=== PATIENT | male | born 1950 | race Caucasian/White ===

== ENCOUNTER 2023-03-23 06:41 | Emergency (ER) | payer MEDICARE ==
--- OUTSIDE RECORDS SUMMARY | 2023-03-23 06:50 | XMS REPORT | Continuity of Care Document ---
:1950 Author Organization [facility] t Address [address] [place] [address] [place] [id number] Care Team Providers Name Role Phone CLARA MÁRQUEZ Primary Care Physician Unavailable Guy Marcial Attending Clinician Unavailable ABIGAIL DIAZ Attending Clinician Unavailable Abigail Diaz MD Attending Clinician PHILIP PATTEN Attending Clinician Unavailable Philip Patten MD Attending Clinician Nori Schneider Attending Clinician JAY OLIVIER Attending Clinician Unavailable Jay Shaw Attending Clinician Dave Attending Clinician Unavailable BAYRON LEE Attending Clinician Unavailable Carter Hunter Rahil Attending Clinician Unavailable RAYMON AVENDAÑO Attending Clinician Unavailable Raymon Avendaño MD Attending Clinician Guy Marcial Admitting Clinician Unavailable ABIGAIL DIAZ Admitting Clinician Unavailable PHILIP PATTEN Admitting Clinician Unavailable Dave Admitting Clinician Unavailable Carter Hunter Rahil Admitting Clinician Unavailable RAYMON AVENDAÑO Admitting Clinician Unavailable Raymon Avendaño MD Admitting Clinician Payers Payer Name Policy Type Policy Number Effective Date Expiration Date S katerin [facility] [id number] MEDICARE ADVANTAGE 00:00:00 PLAN [facility] [id number] 2021 (MEDICARE 00:00:00 REPLACEMENT HMO) [facility] [id number] [facility] [id number] 2019 00:00:00 Problems Condition Condition Condition Status Onset Resolution Last Treating Co mments Source Name Details Category Date Date Treatment Clinician Date Acute Acute Disease Active Univers cystitis cystitis 08-20 ity of without without 00:00: [place] hematuria hematuria 00 Medi rizwana Branch 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 episodes 08-19 ity of of of 00:00: [place] unresponsi unresponsi 00 Me dical veness veness 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 08 it y of traumatic traumatic 00:[place] brain brain 00 Medical injury injury Branch Carotid Carotid Disease Recurre Univer s stenosis, stenosis, nce 08-19 ity of asymptomat asymptomat 00:[place] ic, ic, 00 Medical bilateral bilateral Bran ch 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 00:00: [place] due to due to 00 Medical external external Branch causes, causes, without without status status epilepticu epilepticu s s Seizure Seizure Disease Active Univers 08-19 ity of 00:00: [place] 00 Medical Branch Allergies, Adverse Reactions, Alerts Allergy Allergy Status Severity Reaction(s) Onset Inactive Treating Comm ents Source Name Type Date Date Clinician PENICILL Allergy Active ENCCLR IN 08-31 14:12: 50 PENICILL Allergy Active ENCCLR IN 08-31 14:12: 50 MILK Allergy Active ENCCLR 08-31 14:12: 44 MILK Allergy Active ENCCLR 08-31 14:12: 44 Penicill DA Active [place] [facility] ins 11-22 [place] 00:00: Health 00 [address] [facility] [address] Penicill DA Active IA RASH-UNKNOWN HC A ins 11-22 [place] 00:00: Health 00 [address] [facility] [address] Penicill Propensi Active Rash 2018-08 Can take Univ ers in ty to 09-09 amoxicill ity of adverse 00:00: in [place] reaction 00 Medical s Branch PENICILL DRUG Active Rash 2018-08 Univers IN INGREDI 09-09 ity of 00:00: [place] 00 Medical Branch Social History Social Habit Start Date Stop Date Quantity Comments Source Gender identity Universit y [facility] of Social 2023-02-24 2023-02-24 Univers ity of function 00:00:00 00:00:00 [facility] Exposure to 2022-08-15 2022-08-25 Not sure [facility] SARS-CoV-2 (event) 00:00:00 14:17:00 [facility] Tobacco use and 2021-08-19 2021-08-19 Smokeless Universit y of exposure 00:00:00 00:00:00 tobacco non-user [facility] dical [place] Sex Ass[birth year] At [birth year] Universit y of 00:00:00 00:00:00 [facility] Smoking Status Start Date Stop Date Source Never smoked tobacco [facility] Medications Ordered Filled Start Stop Current Ordering Indication Dosage Frequency Signature Comments Components Source Medication Medication Date Date Medication? Clinician (SIG) Name Name magnesium 2022- No 1g 1 g, IV Univ ers sulfate in 02-24 Piggyback, it y of D5W 1 20:15: 20:08 ONCE, 1 [place] gram/100 mL 00 :00 dose, On [facility] RTU IV [place] Branch Piggyback 1 02/24/23 at g 1515, Administer over 60 Minutes, 100 mL fosphenytoi 2022- No 1500mg{ 1,500 mg Univers n (CEREBYX) 02-24 phenyto PE, IV it y of 1,500 mg PE 20:00: 21:00 [facility] [place] in NaCl 00 :00 valent} ONCE, 1 Medica l 0.9% (NS) dose, On Branch piggyback 02/24/23 at 1500, Administer over 30 Minutes, 100 mL phenytoin 2022- No 500mg 500 mg, IV Univers (DILANTIN) 01-26 Piggyback, it y of 500 mg in 20:45: 20:15 ONCE, 1 [place] NaCl 0.9% 00 :00 dose, On Medica l (NS) (5 Sat Branch mg/mL) 01/26/23 at piggyback 1545, 100 mL fosphenytoi 2022- No 10mg{ph 1,021 mg Univers n (CEREBYX) 08-25 enytoin PE (10 mg ity of 1,021 mg PE 21:30: 21:48 'equiva PE/kg [place] in NaCl 00 :00 lent}/k ?102.1 Medical 0.9% (NS) g kg), IV Branch piggyback Piggyback, ONCE, 1 dose, On 08/25/22 at 1530, Administer over 30 Minutes, 50 mL NaCl 0.9% 2022- No 500mL at 999 Univ ers (NS) bolus 08-25 mL/hr, 500 it y of infusion 21:15: 21:48 mL, IV [place] 500 mL 00 :00 Infusion, Medical ONCE, 1 Branch dose, On 08/25/22 at 1515, JESSI No known No No known Unive rs medications 08-25 medication it y of 14:21: s [place] 08 Medical Branch phenytoin Yes 100mg 100 mg, Univ ers (DILANTIN) 10 Oral, TID, ity of 100 mg/4 mL 14:00: First dose [place] oral 00 (after Medical suspension last Branch 100 mg modificati on) on 08/21/21 at 0800, Until Discontinu ed, Routine sulfamethox Yes 1{tbl} 1 tablet, Univers azole-trime 1-10 Oral, BID, it y of thoprim 02:00: First [place] (BACTRIM 00 on Pending Sale To [facility] DS) 800-160 08/20/21 at Bra nch mg per 1999, tablet 1 Until tablet Discontinu ed, JESSI
Re ason for Anti-Infec tive: Documented Infection< br>Documen temi Infection Site: Urine
D uration of Therapy: 7 days phenytoin 2021- No [id number] 300mg Take 1 Univers ER 300 mg 08-21 capsule by ity of ER capsule 00:00: 04:59 mouth [place] 00 :00 daily for Medical 90 days. Branch LORazepam 2021- No 1mg 1 mg, Univer s (ATIVAN) 08-20 Oral, ity of tablet 1 mg 17:15: 21:45 ONCE, 1 [place] 00 :[place] dose, On Medical [place] 08/20/21 Branch at 1115, Routine pantoprazol 2021-0 Yes 40mg 40 mg, Univ ers e 1-09 Oral, ity of (PROTONIX) 15:00: DAILY, [place] EC tablet 00 First dose Medi rizwana 40 mg on [place] Branch 08/20/21 at 0900, Until Discontinu ed, Routine primidone 2021-0 Yes 50mg 50 mg, Univer s (MYSOLINE) 1-09 Oral, QHS, ity of tablet 50 03:00: [place] dose [place] mg 00 on [facility] 08/19/21 at Branch 2100, Until Discontinu ed, Routine atorvastati 0 Yes 40mg 40 mg, Univ ers n (LIPITOR) - Oral, QHS, it y of tablet 40 03:00: First dose [place] mg 00 on [facility] 08/19/21 at Branch 2100, Until Discontinu ed, Routine venlafaxine 0 Yes 75mg 75 mg, Univ ers (EFFEXOR) 08-20 Oral, BID, ity of tablet 75 02:00: First dose [place] mg 00 on [facility] 08/19/21 at Branch 2000, Until Discontinu ed, Routine propranoloL 2021-0 Yes 10mg 10 mg, Univ ers (INDERAL) 08-20 Oral, BID, ity of tablet 10 02:00: First dose [place] mg 00 on [facility] 08/19/21 at Branch 2000, Until Discontinu ed, Routine heparin 2021-0 Yes 5000U 5,000 Univers (porcine) 08-20 Units, ity of injection 02:00: Subcutaneo [place] 5,000 Units 00 us, Q12H, Med ical First dose Branch on [facility] 08/19/21 at 2000, Until Discontinu ed, Routine phenytoin 2021-0 2021- No 100mg 100 mg, Uni vers (DILANTIN) 08-20 Oral, TID, it y of 100 mg/4 mL 02:00: 12:43 First dose [place] oral 00 :24 on [facility] suspension 08/19/21 at Bran ch 100 mg 2000, Until Discontinu ed, Routine atorvastati 2021-0 2023- No [id number] 40mg Take 1 Univers n 40 mg 08-20 tablet by ity of tablet 00:00: 05:59 mouth at [place] 00 :00 bedtime Medical for 360 Branch days. propranoloL 2022- No [id number] 10mg Take 1 Univers 10 mg 08-20 tablet by ity of tablet 00:00: 05:59 mouth 2 [place] 00 :00 (two) Medical times [place] daily for 360 days. venlafaxine 2022- No [id number] 75mg Take 1 Univers 75 mg 08-20 tablet by ity of tablet 00:00: 05:59 mouth 2 [place] 00 :00 (two) Medical times Branch daily for 360 days. pantoprazol 2022- No [id number] 40mg Take 1 Univers e 40 mg EC 08-20 tablet by ity of tablet 00:00: 05:59 mouth [place] 00 :00 daily for Medical 360 days. Branch sulfamethox 2021- No [id number] 1{tbl} Take 1 Univers azole-trime 08-20 tablet by it y of thoprim 00:00: 05:59 mouth 2 [place] 800-160 mg 00 :00 (two) Medical per tablet times [place] daily for 6 days. phenytoin 2021- No [id number] 100mg Take 4 mL Univers 100 mg/4 mL 08-20 by mouth 3 i ty of oral 00:00: 00:00 (three) [place] suspension 00 :00 times Medical daily for Branch 360 days. butalbital- Yes 1{tbl} 1 tablet, Univers acetaminoph 08-19 Oral, ity of en-caff 22:24: Q6HPRN, [place] (ESGIC) 34 Starting Medical 50-325-40 on Sat Branch mg tablet 1 08/19/21 at tablet 1624, Until Discontinu ed, Routine, Pain (scale 4-6), Pain (scale 7-10) fosphenytoi 2021- No 20mg{ph 2,042 mg Univers n (CEREBYX) 08-19 enytoin PE (20 mg ity of 2,042 mg PE 21:00: 21:05 'equiva PE/kg [place] in NaCl 00 :00 lent}/k ?102.1 Medical 0.9% (NS) g kg), IV Branch piggyback Piggyback, ONCE, 1 dose, On [facility] 08/19/21 at 1500, Administer over 30 Minutes, 100 mL ondansetron 0 Yes 4mg 4 mg, Slow Univers (ZOFRAN 08-19 IV Push, ity of (PF)) 20:30: Q6HPRN, [place] injection 4 38 Starting Medi rizwana mg on [facility] Branch 08/19/21 at 1430, Until Discontinu ed, JESSI, Nausea and Vomiting (N/V) LORazepam 0 Yes 2mg 2 mg, Slow Un emily (ATIVAN) 08 IV Push, ity of injection 2 20:06: Q5MIN PRN, [place] mg 39 Starting Medical on [facility] Branch 08/19/21 at 1406, Until Discontinu ed, Routine, Seizures NaCl 0.9% 2021-0 Yes 1000mL at 75 Unive rs (NS) IV 1-08 mL/hr, IV ity of infusion 20:00: Infusion, [place] 1,000 mL 00 CONTINUOUS Medic al , Starting Branch on 08/19/21 at 1400, Until Discontinu ed, Routine phenytoin 0 2021- No 100mg 100 mg, Uni vers (DILANTIN) 08-19 Oral, TID, it y of chewable 20:00: 21:20 First dose [place] tablet 100 00 :58 on [facility] Medical mg 08/19/21 at Branch 1400, Until Discontinu ed, Routine acetaminoph 2021-0 Yes 650mg 650 mg, Un emily en 08 Oral, ity of (TYLENOL) 19:48: Q6HPRN, [place] tablet 650 11 Starting Medic al mg on [facility] Branch 08/19/21 at 1348, Until Discontinu ed, Routine, Pain (scale 4-6) docusate 2021-0 Yes 100mg 100 mg, Unive rs (COLACE) 08 Oral, ity of capsule 100 19:48: QDAILYPRN, [place] mg 11 Starting Medical on [facility] Branch 08/19/21 at 1348, Until Discontinu ed, Routine, Constipati on iopamidol 2021-0 202- No [id number] 100mL 100 mL, Univers (ISOVUE 08-19 Intravenou ity o f 370-500 mL) 16:45: 15:25 s, ONCE, 1 [place] injection 00 :00 dose, On Medica l 100 mL 08/19/21 Branch at 1045, Routine ondansetron 2021- No 4mg 4 mg, Slow Univers (ZOFRAN 08-19 IV Push, ity of (PF)) 15:30: 14:21 ONCE, 1 [place] injection 4 00 :00 dose, On Medi rizwana mg 08/19/21 Branch at 0930, JESSI acetaminoph 2018-08- No [id number] 1{tbl} Take 1 Univers en-codeine 09-09 [id number] tablet by i ty of 300-30 mg 00:00: 00:00 mouth [place] tablet 00 :00 every 4 Medical (four) Branch hours as needed for Pain (scale 7-10). Vital Signs Vital Name Observation Time Observation Value Comments Source Systolic blood 2023-02-24 22:30:00 154 mm[Hg] Univer sity of [facility] Diastolic blood 2023-02-24 22:30:00 75 [facility]Hg[facility] 2023-02-24 22:30:00 59 /min [facility] Respiratory rate 2023-02-24 22:30:00 19 /min [facility] Oxygen saturation in 2023-02-24 22:30:00 94 /min [facility] Arterial blood by [place] Medi rizwana Pulse oximetry Branch Body temperature 2023-02-24 20:22:[address] [facility] Body height 2023-02-24 17:59:00 172.7 cm [facility] Body weight 2023-02-24 17:59:00 113.399 kg [facility] BMI 2023-02-24 17:59:00 38.01 kg/m2 [facility] Systolic blood 2023-01-26 20:00:00 166 mm[Hg] Univer sity [facility] Diastolic blood 2023-01-26 20:00:00 83 mm[Hg] Unive rsity [facility] Heart rate 2023-01-26 20:00:00 72 /min Universi ty [facility] [place] [facility] Respiratory rate 2023-01-26 20:00:00 20 /min Univ ersity [facility] [place] [facility] Oxygen saturation in 2023-01-26 20:00:00 94 /min University of Arterial blood by [place] [employer] rizwana Pulse oximetry Branch Body temperature 2023-01-26 17:13:00 36.17 Yazmin Univ ersity of [place] [facility] Body weight 2023-01-26 17:13:00 102.059 kg Universi ty [facility] [place] [facility] BMI 2023-01-26 17:13:00 37.44 kg/m2 Universi ty [facility] [place] [facility] Systolic blood 2022-08-25 21:00:00 130 mm[Hg] Univer sity of pressure [place] [facility] Diastolic blood 2022-08-25 21:00:00 91 mm[Hg] Unive rsity of pressure [place] [facility] Heart rate 2022-08-25 21:00:00 74 /min Universi ty [facility] [place] [facility] Respiratory rate 2022-08-25 21:00:00 18 /min Univ ersity of [place] [facility] Oxygen saturation in 2022-08-25 21:00:00 94 /min University of Arterial blood by [place] rizwana Pulse oximetry Branch Body temperature 2022-08-25 20:18:00 36.83 Yazmin Univ ersity of [place] [facility] Body weight 2022-08-25 20:18:00 102.059 kg Universi ty [facility] [place] [facility] BMI 2022-08-25 20:18:00 37.44 kg/m2 Universi ty [facility] [place] [facility] Systolic blood 2021-08-22 01:35:00 149 mm[Hg] Univer sity of pressure [place] [facility] Diastolic blood 2021-08-22 01:35:00 73 mm[Hg] Unive rsity of pressure [place] [facility] Heart rate 2021-08-22 01:35:00 62 /min Universi ty [facility] [place] [facility] Body temperature 2021-08-22 01:35:00 36.11 Yazmin Univ ersity [facility] [place] [facility] Respiratory rate 2021-08-22 01:35:00 16 /min Univ ersity [facility] [place] [facility] Oxygen saturation in 2021-08-22 01:35:00 96 /min University of Arterial blood by [place] rizwana Pulse oximetry Branch Body height 2021-08-19 19:12:00 165.1 cm [facility] Body weight 2021-08-19 19:12:00 102.059 kg [facility] BMI 2021-08-19 19:12:00 37.44 kg/m2 [facility] Procedures Procedure Date / Time Performing Source Performed Clinician POTASSIUM SERUM 2023-02-24 Joe Abigail [facility] xas 20:55:[address] [facility] CT HEAD WO CONTRAST 2023-02-24 Abigail Diaz [place] [facility] f [place] 20:07:[address] [facility] COMP. METABOLIC PANEL ([id number]) 2023-02-24 Abigail Diaz [facility] 19:51:[address] [facility] URINALYSIS 2023-02-24 Joe [facility] xas 19:46:[address] [facility] MAGNESIUM 2023-02-24 Joe [facility] xas 18:13:[address] [facility] PHENYTOIN 2023-02-24 Joe [facility] xas 18:13:[address] [facility] CBC WITH DIFF 2023-02-24 Joe [facility] xas 18:13:[address] [facility] CONSENT/REFUSAL FOR DIAGNOSIS 2023-02-24 Doctor Unassigned, [facility] AND TREATMENT 18:06:24 [place] [facility] EKG-12 LEAD 2023-01-26 Philip Patten [facility] xas 20:50:40 [facility] COMP. METABOLIC PANEL ([id number]) 2023-01-26 Philip Patten [facility] 17:10:00 [facility] PHENYTOIN 2023-01-26 Philip Patten [facility] xas 17:10:00 [facility] CBC WITH DIFF 2023-01-26 Philip Patten [facility] [place]as 17:10:00 [facility] COMP. METABOLIC PANEL ([id number]) 2022-08-25 [facility] 20:34[facility]00 [facility] PHENYTOIN 2022-08-[address] [facility] exas 20:34:[address] [facility] CBC WITH DIFF 2022-08-[address] [facility] exas 20:34:00 [facility] Branch CONSENT/REFUSAL FOR DIAGNOSIS 2022-08-25 Doctor Unassigned, [facility] AND TREATMENT 20:14:00 [place] [facility] PHENYTOIN FREE 2021-08-21 [facility] 09:57[facility]00 [facility] CBC WITH DIFF 2021-08-21 Paula [facility] 09:57:[address] [facility] MAGNESIUM 2021-08-21 Paula [facility] 09:57:[address] [facility] BASIC METABOLIC PANEL (NA, K, 2021-08-21 Anamaria Mitchell [facility] CL, CO2, GLUCOSE, BUN, 09:57:00 [facility] ran CREATININE, CA) ELECTROENCEPHALOGRAM 2021-08-21 [facility] URINE CULTURE 2021-08-20 Paula [facility] 16:56:[address] [facility] PHENYTOIN FREE 2021-08-20 Terri [facility] 00:07:[address] [facility] GLYCOSYLATED HEMOGLOBIN (A1C) 2021-08-20 Terri [facility] 00:07:[address] [facility] XR CHEST 1 VW 2021-08-19 Terri [facility] 20:11:[address] [facility] CT ANGIOGRAM HEAD 2021-08-19 Joe [facility] 15:34:[address] [facility] CT ANGIOGRAM NECK 2021-08-19 Joe [facility] 15:34:[address] [facility] CT HEAD WO CONTRAST 2021-08-19 Joe [facility] [place] 15:34:[address] [facility] URINALYSIS 2021-08-19 Joe [facility] 14:59:[address] [facility] URINE DRUG (IMMUNOASSAY) - 2021-08-19 Joe Abigail [facility] COMPREHENSIVE DRUG SCREEN W/O 14:59:00 Nv dical Branch REFLEX COVID-19 (ID NOW RAPID 2021-08-19 [facility] TESTING) 14:23:00 [facility] Branch CBC WITH DIFF 2021-08-19 Joe [facility] 14:10:[address] [facility] PROTHROMBIN TIME / INR 2021-08-19 [facility] 14:10:[address] [facility] ACTIVATED PARTIAL THRMPLAS 2021-08-19 Abigail Diaz [facility] JUDIT 14:10:[address] [facility] N-TERMINAL PRO-BNP 2021-08-19 Joe [facility] 14:10:[address] [facility] PHOSPHORUS 2021-08-19 Amrceasar [facility] xas 14:10:[address] [facility]NESIUM 2021[facility]08-19 [facility] 14:10[facility] [facility] TROPONIN I 2021-08-19 Joe [facility] 14:10:[address] [facility] FREE T4 2021-08-19 Joe [facility] [place] 14:10:[address] [facility] THYROID STIMULATING HORMONE 2021-08-19 Joe [facility] 14:10:[address] [facility] COMP. METABOLIC PANEL ([id number]) 2021-08-19 Abigail Diaz [facility] 14:10:[address] [facility] PHENYTOIN 2021-08-19 Joe [facility] xas 14:10:[address] [facility] ETHANOL 2021-08-19 Joe [facility]as 14:10:[address] [facility] LACTIC ACID WHOLE BLOOD 2021-08-19 Abigail Diaz [facility] 14:09:[address] [facility] HB ECG ROUTINE & RHYTHM STRIP 2021-08-19 Abigail Diaz [facility] 14:01:[address] [facility] Encounters Start End Encounter Admission Attending Care Care Encounter Source Date/Time Date/Time Type Type Clinicians Facility Department ID 2020-11-22 Inpatient EL Aggie, [facility] [id number] [place] 20:34:55 Guy 05 tone Special ty [facility] 2023-02-24 2023-02-24 [facility] [id number] Univers 13:01:00 18:40:00 ABIGAIL saavedra [facility] 2023-02-24 2023-02-24 [facility] [id number] Univers 13:01:00 18:40:00 Abigail HERMAN [id number] i ty [facility] [id number] [facility] [id number] [facility] 084 Branch 2023-01-26 2023-01-26 Emergency X JOSE [facility] ERT [id number] Univers 12:09:00 16:04:00 PHILIP [facility] 2023-01-26 2023-01-26 Emergency [facility] [id number] Univers 12:09:00 16:04:00 Philip HERMAN [id number] i ty of [place] [id number] [facility] [id number] [address] 2022-11-30 2022-11-30 CAV Nori [id number]. JO-ANN XKKYKZ [facility] 20:00:00 21:00:00 Wyatt [id number] [facility] [id number] 2022-08-25 2022-08-25 Emergency [facility] [id number] Univers 14:16:00 17:49:00 JAY [facility] 2022-08-25 2022-08-25 Emergency [facility] [id number] Univers 14:16:00 17:49:00 Jay Sanchez VIRGIL [id number] i ty of [place] [id number] [facility] [id number] [address] 2022-04-13 2022-04-13 [facility] [id number] [facility] 00:00:00 00:00:00 [id number] Medica l Group 2022-04-13 2022-04-13 [facility] 1109 [facility] 00:00:00 00:00:00 [id number] Medica l Group 2022-02-23 2022-02-23 Outpatient JATIN JATIN [id number] [facility] 03:28:00 03:28:00 [id number] Medica l Group 2021-11-02 2021-11-02 Outpatient [facility] [id number] [facility] 09:00:00 09:00:00 [id number] Medica l Group 2021-08-31 2021-08-31 Outpatient RADHA PERSON [id number] [facility] 00:00:00 00:00:00 ADMISSION BAYRON 2021-08-21 2021-08-30 Inpatient 3 ALEKSANDAR Hunter BIN [id number] [facility] 21:15:00 11:00:00 Carter [facility] 2021-08-19 2021-08-21 Outpatient X JAROCHO, [facility] MIMI [id number] Univers 08:00:00 22:01:00 RAYMON saavedra o f [facility] 2021-08-19 2021-08-21 Emergency Abigail Daiz [id number] Univers 08:00:00 22:01:00 Raymon Avendaño 350.1.13.1 0 ity [facility] [id number] Matthew as [id number] [address] 2020-11-23 2020-11-23 Outpatient INOCENCIO Marcial REF [id number] [facility] 08:52:00 08:52:00 Guy 62 [facility] are [facility] 2020-11-22 2020-11-22 Outpatient [facility] [id number] [facility] 20:34:49 20:34:49 [facility] 41 [facility] are Medical Center Results Test Description Test Time Test Comments Results Result Comments Source POTASSIUM SERUM 2023-02-24 21:39:42 Test Item Value Reference Range Interpretation Comme nts K (test code = [id number]) 4.6 mmol/L 3.5-5.0 Lab Interpretation (test code = 37441-0) [facility] ([id number][facility]2023-02-24 20:40:28 Test Item Value Reference Range Interpretation Comments NA (test code = 137 mmol/L 135-145 [id number]) K (test code = 6.3 mmol/L 3.5-5.0 5067175417) CL (test code = 103 mmol/L 98-108 2007643015) CO2 TOTAL (test code = 26 mmol/L 23-31 5826668829) AGAP (test code = 8 2-16 8336506090) BUN (test code = 17 mg/dL 7-23 8671730346) GLUCOSE (test code = 114 mg/dL 70-110 H 4651903282) CREATININE (test code = 0.97 mg/dL 0.60-1.25 3014185859) TOTAL BILI (test code = 0.7 mg/dL 0.1-1.2 4555007982) CALCIUM (test code = 8.6 mg/dL 8.6-10.6 2926816372) T PROTEIN (test code = 7.5 g/dL 6.3-8.2 5159977121) ALBUMIN (test code = 4.1 g/dL 3.5-5.0 4295586367) ALK PHOS (test code = 153 U/L 34-122 H 2510122681) ALTv (test code = 36 U/L 5-50 1742-6) AST(SGOT) (test code = 43 U/L 13-40 H 5934121358) eGFR (test code = 75.9 mL/min/1.73m2 3934112817) DARIN (test code = DARIN) Association of Glomerular Filtration Rate (GFR) and Staging of Kidney Disease* + --+ --+ ------+| GFR (mL/min/1.73 m2) ?| With Kidney Damage ?| ?Without Kidney Damage+ --------+ --------+ +| ?>90 ?| ?Stage one ?| ? Normal ?+ ---+ ---+ -------+| ?60-89 ?| ?Stage two ?| ? Decreased GFR ? + --+ --+ ------+| ?30-59 ?| ?Stage three ?| ? Stage three ? + --+ --+ ------+| ?15-29 ?| ?Stage four ? | ? Stage four ?+ ---+ ---+ -------+| ?<15 (or dialysis) ? ?| ?Stage five ? | ? Stage five ?+ ---+ ---+ -------+ *Each stage assumes the associated GFR level has been in effect for at least three months. ?Stages 1 to 5, with or without kidney disease, indicate chronic kidney disease. Notes: Determination of stages one and two (with eGFR >59mL/min/1.73 m2) requires estimation of kidney damage for at least three months as defined by structural or functional abnormalities of the kidney, manifested by either:Pathological abnormalities or Markers of kidney damage (including abnormalities in the composition of the blood or urine or abnormalities in imaging tests). Lab Interpretation Abnormal (test code = 57765-8) [facility]58:02 Test Item Value Reference Range Interpretation Comments MAGNESIUM (test code = 5412545028) 1.1 mg/dL 1.7-2.4 L Lab Interpretation (test code = Abnormal 67754-0) [facility] 18:47:54 Test Item Value Reference Range Interpretation Comments PHENYTOIN (test code = 4.0 ug/mL 10.0-20.0 L 9514095813) DARIN (test code = DARIN) Toxic Range: ? 0-3 Months ? Greater than 14 ug/mL ? ? 3 Months - 150 Years ? ? Greater than 20 ug/mL Lab Interpretation (test Abnormal code = 37518-4) [facility] [id number] 18:31:30 Test Item Value Reference Range Interpretation Comments WBC (test code = 9.00 See_Comment [Automated 6990-2) message] The sy stem which generated this result transmitted reference range : 4.20 - 10.70 10*3/?L. The reference range was not used to interpret this result as normal/abnormal . RBC (test code = 3.97 See_Comment L [Automated 856-8) message] The sy stem which generated this result transmitted reference range : 4.26 - 5.52 10*6/?L. The reference range was not used to interpret this result as normal/abnormal . HGB (test code = 12.9 g/dL 12.2-16.4 718-7) HCT (test code = 37.4 % 38.4-49.3 L 4544-3) MCV (test code = 94.2 fL 81.7-95.6 787-2) MCH (test code = 32.5 pg 26.1-32.7 785-6) MCHC (test code = 34.5 g/dL 31.2-35.0 786-4) RDW-SD (test code = 47.8 fL 38.5-51.6 06666-6) RDW-CV (test code = 13.8 % 12.1-15.4 788-0) PLT (test code = 327 See_Comment [Automated 777-3) message] The sy stem which generated this result transmitted reference range : 150 - 328 10*3/ ?L. The reference r esdras was not used to interpret this result as normal/abnormal . MPV (test code = 8.5 fL 9.8-13.0 L 68236-3) NRBC/100 WBC (test 0.0 See_Comment [Automat ed code = 1533081515) message] The system which generated this result transmitted reference range : 0.0 - 10.0 /100 WBCs. The refer ence range was not u sed to interpret th is result as normal/abnormal . NRBC x10^3 (test code See_Comment [Auto mated = 4626223806) message] The s ystem which generated this result transmitted reference range : 10*3/?L. The reference range was not used to interpret this result as normal/abnormal . GRAN MAT (NEUT) % 49.5 % (test code = 770-8) IMM GRAN % (test code 0.30 % = 7315477592) LYMPH % (test code = 39.7 % 736-9) MONO % (test code = 7.0 % 5905-5) EOS % (test code = 2.9 % 713-8) BASO % (test code = 0.6 % 706-2) GRAN MAT x10^3(ANC) 4.46 10*3/uL 1.99-6.95 (test code = 6280570058) IMM GRAN x10^3 (test 0.03 10*3/uL 0.00-0.06 code = 7131548059) LYMPH x10^3 (test code 3.57 10*3/uL 1.09-3.23 H = 731-0) MONO x10^3 (test code 0.63 10*3/uL 0.36-1.02 = 742-7) EOS x10^3 (test code = 0.26 10*3/uL 0.06-0.53 711-2) BASO x10^3 (test code 0.05 10*3/uL 0.01-0.09 = 704-7) Lab Interpretation Abnormal (test code = 63403-4) [facility] 18:43:34 Test Item Value Reference Range Interpretation Comments PHENYTOIN (test code = 9.1 ug/mL 10.0-20.0 L 4670593739) DARIN (test code = DARIN) Toxic Range: ? 0-3 Months ? Greater than 14 ug/mL ? ? 3 Months - 150 Years ? ? Greater than 20 ug/mL Lab Interpretation (test Abnormal code = 89335-7) [facility] MET[facility]OLIC PANEL ([id number])2023-01-26 17:42:34 Test Item Value Reference Range Interpretation Comments NA (test code = 141 mmol/L 135-145 9566658840) K (test code = 4.7 mmol/L 3.5-5.0 5630081106) CL (test code = 108 mmol/L 98-108 5549212489) CO2 TOTAL (test code = 23 mmol/L 23-31 1387633724) AGAP (test code = 10 2-16 1702542260) BUN (test code = 25 mg/dL 7-23 H 3474097086) GLUCOSE (test code = 170 mg/dL 70-110 H 8277494360) CREATININE (test code = 1.16 mg/dL 0.60-1.25 6423255142) TOTAL BILI (test code = 0.4 mg/dL 0.1-1.3 2486915162) CALCIUM (test code = 8.7 mg/dL 8.6-10.6 7481054133) T PROTEIN (test code = 7.2 g/dL 6.3-8.2 4507284897) ALBUMIN (test code = 4.0 g/dL 3.5-5.0 9669000456) ALK PHOS (test code = 146 U/L 34-122 H 9622106119) ALTv (test code = 32 U/L 5-50 1742-6) AST(SGOT) (test code = 31 U/L 13-40 8898927197) eGFR (test code = 61.7 mL/min/1.73m2 9828297799) DARIN (test code = DARIN) Association of Glomerular Filtration Rate (GFR) and Staging of Kidney Disease* + --+ --+ ------+| GFR (mL/min/1.73 m2) ?| With Kidney Damage ?| ?Without Kidney Damage+ --------+ --------+ +| ?>90 ?| ?Stage one ?| ? Normal ?+ ---+ ---+ -------+| ?60-89 ?| ?Stage two ?| ? Decreased GFR ? + --+ --+ ------+| ?30-59 ?| ?Stage three ?| ? Stage three ? + --+ --+ ------+| ?15-29 ?| ?Stage four ? | ? Stage four ?+ ---+ ---+ -------+| ?<15 (or dialysis) ? ?| ?Stage five ? | ? Stage five ?+ ---+ ---+ -------+ *Each stage assumes the associated GFR level has been in effect for at least three months. ?Stages 1 to 5, with or without kidney disease, indicate chronic kidney disease. Notes: Determination of stages one and two (with eGFR >59mL/min/1.73 m2) requires estimation of kidney damage for at least three months as defined by structural or functional abnormalities of the kidney, manifested by either:Pathological abnormalities or Markers of kidney damage (including abnormalities in the composition of the blood or urine or abnormalities in imaging tests). Lab Interpretation Abnormal (test code = 64073-9) [facility] WITH [id number] 17:30:16 Test Item Value Reference Range Interpretation Comments WBC (test code = 8.30 See_Comment [Automated 9609-2) message] The sy stem which generated this result transmitted reference range : 4.20 - 10.70 10*3/?L. The reference range was not used to interpret this result as normal/abnormal . RBC (test code = 3.83 See_Comment L [Automated 020-5) message] The sy stem which generated this result transmitted reference range : 4.26 - 5.52 10*6/?L. The reference range was not used to interpret this result as normal/abnormal . HGB (test code = 12.4 g/dL 12.2-16.4 718-7) HCT (test code = 36.4 % 38.4-49.3 L 4544-3) MCV (test code = 95.0 fL 81.7-95.6 787-2) MCH (test code = 32.4 pg 26.1-32.7 785-6) MCHC (test code = 34.1 g/dL 31.2-35.0 786-4) RDW-SD (test code = 47.8 fL 38.5-51.6 97025-4) RDW-CV (test code = 13.9 % 12.1-15.4 788-0) PLT (test code = 300 See_Comment [Automated 777-3) message] The sy stem which generated this result transmitted reference range : 150 - 328 10*3/ ?L. The reference r esdras was not used to interpret this result as normal/abnormal . MPV (test code = 8.5 fL 9.8-13.0 L 39909-0) NRBC/100 WBC (test 0.0 See_Comment [Automat ed code = 3583606452) message] The system which generated this result transmitted reference range : 0.0 - 10.0 /100 WBCs. The refer ence range was not u sed to interpret th is result as normal/abnormal . NRBC x10^3 (test code See_Comment [Auto mated = 0801765764) message] The s ystem which generated this result transmitted reference range : 10*3/?L. The reference range was not used to interpret this result as normal/abnormal . GRAN MAT (NEUT) % 50.9 % (test code = 770-8) IMM GRAN % (test code 0.60 % = 9535398000) LYMPH % (test code = 35.9 % 736-9) MONO % (test code = 8.6 % 5905-5) EOS % (test code = 3.5 % 713-8) BASO % (test code = 0.5 % 706-2) GRAN MAT x10^3(ANC) 4.23 10*3/uL 1.99-6.95 (test code = 4504636529) IMM GRAN x10^3 (test 0.05 10*3/uL 0.00-0.06 code = 2352541583) LYMPH x10^3 (test code 2.98 10*3/uL 1.09-3.23 = 731-0) MONO x10^3 (test code 0.71 10*3/uL 0.36-1.02 = 742-7) EOS x10^3 (test code = 0.29 10*3/uL 0.06-0.53 711-2) BASO x10^3 (test code 0.04 10*3/uL 0.01-0.09 = 704-7) Lab Interpretation Abnormal (test code = 37902-6) [facility] 22:37:17 Test Item Value Reference Range Interpretation Comments PHENYTOIN (test code = 10.5 ug/mL 10.0-20.0 5172298125) DARIN (test code = DARIN) Toxic Range: ? 0-3 Months ? Greater than 14 ug/mL ? ? 3 Months - 150 Years ? ? Greater than 20 ug/mL Lab Interpretation (test Normal code = 81013-1) [facility] WITH [id number] 21:31:57 Test Item Value Reference Range Interpretation Comments WBC (test code = See_Comment [Automated 9663-2) message] The sy stem which generated this result transmitted reference range : 4.20 - 10.70 10*3/?L. The reference range was not used to interpret this result as normal/abnormal . RBC (test code = See_Comment L [Automated 719-8) message] The sy stem which generated this result transmitted reference range : 4.26 - 5.52 10*6/?L. The reference range was not used to interpret this result as normal/abnormal . HGB (test code = 12.6 g/dL 12.2-16.4 718-7) HCT (test code = 37.4 % 38.4-49.3 L 4544-3) MCV (test code = 93.5 fL 81.7-95.6 787-2) MCH (test code = 31.5 pg 26.1-32.7 785-6) MCHC (test code = 33.7 g/dL 31.2-35.0 786-4) RDW-SD (test code = 45.7 fL 38.5-51.6 82930-2) RDW-CV (test code = 13.4 % 12.1-15.4 788-0) PLT (test code = See_Comment [Automated 777-3) message] The sy stem which generated this result transmitted reference range : 150 - 328 10*3/ ?L. The reference r esdras was not used to interpret this result as normal/abnormal . MPV (test code = 8.8 fL 9.8-13.0 L 41617-9) NRBC/100 WBC (test See_Comment [Automat ed code = 9803737341) message] The system which generated this result transmitted reference range : 0.0 - 10.0 /100 WBCs. The refer ence range was not u sed to interpret th is result as normal/abnormal . NRBC x10^3 (test code See_Comment [Auto mated = 0545121777) message] The s ystem which generated this result transmitted reference range : 10*3/?L. The reference range was not used to interpret this result as normal/abnormal . GRAN MAT (NEUT) % 43.3 % (test code = 770-8) IMM GRAN % (test code 0.40 % = 2084585521) LYMPH % (test code = 45.5 % 736-9) MONO % (test code = 7.9 % 5905-5) EOS % (test code = 2.3 % 713-8) BASO % (test code = 0.6 % 706-2) GRAN MAT x10^3(ANC) 4.48 10*3/uL 1.99-6.95 (test code = 3405317209) IMM GRAN x10^3 (test 0.04 10*3/uL 0.00-0.06 code = 3161633685) LYMPH x10^3 (test code 4.71 10*3/uL 1.09-3.23 H = 731-0) MONO x10^3 (test code 0.82 10*3/uL 0.36-1.02 = 742-7) EOS x10^3 (test code = 0.24 10*3/uL 0.06-0.53 711-2) BASO x10^3 (test code 0.06 10*3/uL 0.01-0.09 = 704-7) Lab Interpretation Abnormal (test code = 54078-8) [facility]. METABOLIC PANEL ([id number])2022-08-25 21:09:32 Test Item Value Reference Range Interpretation Comments NA (test code = 137 mmol/L 135-145 8554404572) K (test code = 5.2 mmol/L 3.5-5.0 H 9162722151) CL (test code = 106 mmol/L 98-108 4599014466) CO2 TOTAL (test code = 23 mmol/L 23-31 5889070609) AGAP (test code = 2-16 5194077428) BUN (test code = 22 mg/dL 7-23 6626697874) GLUCOSE (test code = 99 mg/dL 70-110 2220274186) CREATININE (test code = 1.06 mg/dL 0.60-1.25 3586759327) TOTAL BILI (test code = 0.5 mg/dL 0.1-1.2 7712816387) CALCIUM (test code = 8.2 mg/dL 8.6-10.6 L 7103756246) T PROTEIN (test code = 7.4 g/dL 6.3-8.2 0536221432) ALBUMIN (test code = 4.1 g/dL 3.5-5.0 3866262946) ALK PHOS (test code = 158 U/L 34-122 H 4230820931) ALTv (test code = 36 U/L 5-50 1742-6) AST(SGOT) (test code = 37 U/L 13-40 2266151034) eGFR (test code = mL/min/1.73m2 0917100415) DARIN (test code = DARIN) Association of Glomerular Filtration Rate (GFR) and Staging of Kidney Disease* + --+ --+ ------+| GFR (mL/min/1.73 m2) ?| With Kidney Damage ?| ?Without Kidney Damage+ --------+ --------+ +| ?>90 ?| ?Stage one ?| ? Normal ?+ ---+ ---+ -------+| ?60-89 ?| ?Stage two ?| ? Decreased GFR ? + --+ --+ ------+| ?30-59 ?| ?Stage three ?| ? Stage three ? + --+ --+ ------+| ?15-29 ?| ?Stage four ? | ? Stage four ?+ ---+ ---+ -------+| ?<15 (or dialysis) ? ?| ?Stage five ? | ? Stage five ?+ ---+ ---+ -------+ *Each stage assumes the associated GFR level has been in effect for at least three months. ?Stages 1 to 5, with or without kidney disease, indicate chronic kidney disease. Notes: Determination of stages one and two (with eGFR >59mL/min/1.73 m2) requires estimation of kidney damage for at least three months as defined by structural or functional abnormalities of the kidney, manifested by either:Pathological abnormalities or Markers of kidney damage (including abnormalities in the composition of the blood or urine or abnormalities in imaging tests). Lab Interpretation Abnormal (test code = 64941-0) [facility] [id number] 12:40:14 Test Item Value Reference Range Interpretation Comments PHENY FREE (test code 2.1 ug/mL 1.0-2.0 H = 0051815828) DARIN (test code = DARIN) Toxic Range: ? Greater than 2.5 ug/mL Test developed and characteristics determined by [facility] Laboratory Services. Lab Interpretation Abnormal (test code = 95541-4) [facility] (NA, K, CL, CO2, GLUCOSE, BUN, CREATININE, CA)2021-08-21 11:15:55 Test Item Value Reference Range Interpretation Comments NA (test code = 138 mmol/L 135-145 5578467593) K (test code = 4.9 mmol/L 3.5-5.0 8860893742) CL (test code = 105 mmol/L 98-108 2038012536) CO2 TOTAL (test code = 27 mmol/L 23-31 2332953235) AGAP (test code = 2-16 8788269804) BUN (test code = 18 mg/dL 7-23 8831170355) GLUCOSE (test code = 93 mg/dL 70-110 8879895609) CREATININE (test code = 1.04 mg/dL 0.60-1.25 2440720477) CALCIUM (test code = 8.5 mg/dL 8.6-10.6 L 8134737521) eGFR (test code = mL/min/1.73m2 2675334829) DARIN (test code = DARIN) Association of Glomerular Filtration Rate (GFR) and Staging of Kidney Disease* + --+ --+ ------+| GFR (mL/min/1.73 m2) ?| With Kidney Damage ?| ?Without Kidney Damage+ --------+ --------+ +| ?>90 ?| ?Stage one ?| ? Normal ?+ ---+ ---+ -------+| ?60-89 ?| ?Stage two ?| ? Decreased GFR ? + --+ --+ ------+| ?30-59 ?| ?Stage three ?| ? Stage three ? + --+ --+ ------+| ?15-29 ?| ?Stage four ? | ? Stage four ?+ ---+ ---+ -------+| ?<15 (or dialysis) ? ?| ?Stage five ? | ? Stage five ?+ ---+ ---+ -------+ *Each stage assumes the associated GFR level has been in effect for at least three months. ?Stages 1 to 5, with or without kidney disease, indicate chronic kidney disease. Notes: Determination of stages one and two (with eGFR >59mL/min/1.73 m2) requires estimation of kidney damage for at least three months as defined by structural or functional abnormalities of the kidney, manifested by either:Pathological abnormalities or Markers of kidney damage (including abnormalities in the composition of the blood or urine or abnormalities in imaging tests). Lab Interpretation Abnormal (test code = 23837-5) [facility] 11:15:55 Test Item Value Reference Range Interpretation Comments MAGNESIUM (test code = 3476958689) 2.2 mg/dL 1.7-2.4 Lab Interpretation (test code = Normal 74904-6) [facility] WITH [id number] 10:45:32 Test Item Value Reference Range Interpretation Comments WBC (test code = See_Comment [Automated 6390-2) message] The sy stem which generated this result transmitted reference range : 4.20 - 10.70 10*3/?L. The reference range was not used to interpret this result as normal/abnormal . RBC (test code = See_Comment L [Automated 029-8) message] The sy stem which generated this result transmitted reference range : 4.26 - 5.52 10*6/?L. The reference range was not used to interpret this result as normal/abnormal . HGB (test code = 12.7 g/dL 12.2-16.4 718-7) HCT (test code = 37.3 % 38.4-49.3 L 4544-3) MCV (test code = 91.2 fL 81.7-95.6 787-2) MCH (test code = 31.1 pg 26.1-32.7 785-6) MCHC (test code = 34.0 g/dL 31.2-35.0 786-4) RDW-SD (test code = 44.0 fL 38.5-51.6 29742-2) RDW-CV (test code = 13.2 % 12.1-15.4 788-0) PLT (test code = See_Comment [Automated 777-3) message] The sy stem which generated this result transmitted reference range : 150 - 328 10*3/ ?L. The reference r esdras was not used to interpret this result as normal/abnormal . MPV (test code = 8.6 fL 9.8-13.0 L 20569-0) NRBC/100 WBC (test See_Comment [Automat ed code = 4619726294) message] The system which generated this result transmitted reference range : 0.0 - 10.0 /100 WBCs. The refer ence range was not u sed to interpret th is result as normal/abnormal . NRBC x10^3 (test code <0.01 See_Comment [Auto mated = 8125093490) message] The s ystem which generated this result transmitted reference range : 10*3/?L. The reference range was not used to interpret this result as normal/abnormal . GRAN MAT (NEUT) % 38.4 % (test code = 770-8) IMM GRAN % (test code 0.20 % = 0122076565) LYMPH % (test code = 51.1 % 736-9) MONO % (test code = 7.5 % 5905-5) EOS % (test code = 2.4 % 713-8) BASO % (test code = 0.4 % 706-2) GRAN MAT x10^3(ANC) 3.56 10*3/uL 1.99-6.95 (test code = 7724008289) IMM GRAN x10^3 (test <0.03 0.00-0.06 code = 3806864472) LYMPH x10^3 (test code 4.74 10*3/uL 1.09-3.23 H = 731-0) MONO x10^3 (test code 0.70 10*3/uL 0.36-1.02 = 742-7) EOS x10^3 (test code = 0.22 10*3/uL 0.06-0.53 711-2) BASO x10^3 (test code 0.04 10*3/uL 0.01-0.09 = 704-7) REACT LYMPHS (test Rare code = 7517715532) GIANT PLATELETS (test Present See_Comment A [Auto mated code = 5908-9) message] The system which generated this result transmitted reference range : (none). The reference range was not used to interpret this result as normal/abnormal . Lab Interpretation Abnormal (test code = 56868-2) [facility] [id number] 03:34:42 Test Item Value Reference Range Interpretation Comments PHENY FREE (test code 2.5 ug/mL 1.0-2.0 H = 6438273657) DARIN (test code = DARIN) Toxic Range: ? Greater than 2.5 ug/mL Test developed and characteristics determined by [facility] Laboratory Services. Lab Interpretation Abnormal (test code = 95772-3) [facility]GLYCOSYLATED HEMOGLOBIN (A1C)2021-08-20 00:41:54 Test Item Value Reference Range Interpretation Comments HGB A1C (test code = 5.8 % 4.0-5.7 H 4548-4) DARIN (test code = DARIN) Reference RangesNormal: <5.7%Prediabetes: 5.7 - 6.4%Diabetes: > 6.5% Lab Interpretation (test Abnormal code = 31093-8) [facility]Magnesium [id number] 20:40:07 Test Item Value Reference Range Interpretation Comments MAGNESIUM (test code = 3667732943) 2.2 mg/dL 1.7-2.4 Lab Interpretation (test code = Normal 56233-7) [facility]Phosphorus [id number] 20:40:06 Test Item Value Reference Range Interpretation Comments PHOSPHORUS (test code = 1298114032) 3.0 mg/dL 2.5-5.0 Lab Interpretation (test code = Normal 55914-0) [facility]2022-[facility]-08 18:18:13 Test Item Value Reference Range Interpretation Comments PHENYTOIN (test code = 3.5 ug/mL 10.0-20.0 L 9147818368) DARIN (test code = DARIN) Toxic Range: ? 0-3 Months ? Greater than 14 ug/mL ? ? 3 Months - 150 Years ? ? Greater than 20 ug/mL Lab Interpretation (test Abnormal code = 54753-0) [facility] WITH [id number] 15:36:41 Test Item Value Reference Range Interpretation Comments WBC (test code = See_Comment H [Automated 2217-2) message] The sy stem which generated this result transmitted reference range : 4.20 - 10.70 10*3/?L. The reference range was not used to interpret this result as normal/abnormal . RBC (test code = See_Comment L [Automated 269-8) message] The sy stem which generated this result transmitted reference range : 4.26 - 5.52 10*6/?L. The reference range was not used to interpret this result as normal/abnormal . HGB (test code = 12.3 g/dL 12.2-16.4 718-7) HCT (test code = 36.7 % 38.4-49.3 L 4544-3) MCV (test code = 92.0 fL 81.7-95.6 787-2) MCH (test code = 30.8 pg 26.1-32.7 785-6) MCHC (test code = 33.5 g/dL 31.2-35.0 786-4) RDW-SD (test code = 43.9 fL 38.5-51.6 16256-1) RDW-CV (test code = 13.0 % 12.1-15.4 788-0) PLT (test code = See_Comment H [Automated 777-3) message] The sy stem which generated this result transmitted reference range : 150 - 328 10*3/ ?L. The reference r esdras was not used to interpret this result as normal/abnormal . MPV (test code = 8.8 fL 9.8-13.0 L 31563-6) NRBC/100 WBC (test See_Comment [Automat ed code = 3734578590) message] The system which generated this result transmitted reference range : 0.0 - 10.0 /100 WBCs. The refer ence range was not u sed to interpret th is result as normal/abnormal . NRBC x10^3 (test code <0.01 See_Comment [Auto mated = 9860497605) message] The s ystem which generated this result transmitted reference range : 10*3/?L. The reference range was not used to interpret this result as normal/abnormal . GRAN MAT (NEUT) % 50.8 % (test code = 770-8) IMM GRAN % (test code 0.50 % = 9109846830) LYMPH % (test code = 38.9 % 736-9) MONO % (test code = 7.3 % 5905-5) EOS % (test code = 2.2 % 713-8) BASO % (test code = 0.3 % 706-2) GRAN MAT x10^3(ANC) 5.92 10*3/uL 1.99-6.95 (test code = 7719696710) IMM GRAN x10^3 (test 0.06 10*3/uL 0.00-0.06 code = 9577013080) LYMPH x10^3 (test code 4.53 10*3/uL 1.09-3.23 H = 731-0) MONO x10^3 (test code 0.85 10*3/uL 0.36-1.02 = 742-7) EOS x10^3 (test code = 0.26 10*3/uL 0.06-0.53 711-2) BASO x10^3 (test code 0.04 10*3/uL 0.01-0.09 = 704-7) Lab Interpretation Abnormal (test code = 35957-2) [facility] [id number] 15:29:39 Test Item Value Reference Range Interpretation Comments TSH (test code = See_Comment H [Automated message] 7739466136) The system [employer] generated this result transmitted ref erence range: 0.45 - 4 .70 mIU/L. The refe rence range was not u sed to interpret this result as normal/abnor mal. Lab Interpretation (test Abnormal code = 33113-5) [facility] [id number] 15:16:18 Test Item Value Reference Range Interpretation Comments FREE T4 (test code = See_Comment L [Autom ated message] [id number]) The system [employer] generated this result transmitted ref erence range: 0.78 - 2 .20 ng/dL:. The ref erence range was not u sed to interpret this result as normal/abnor mal. Lab Interpretation (test Abnormal code = 19179-3) [facility] [id number] 15:11:17 Test Item Value Reference Interpretation Comments Range TROPONIN I (test 0.011 ng/mL See_Comment [Automated code = [id number]) message] The system which generated this result transmitted reference range : <=0.034. The reference range was not used to interpret this result as normal/abnormal . DARIN (test code = Reference (Normal) DARIN) Range (defined by the 99th percentile reference limit): <= 0.034 ng/mL Note: Cardiac troponin begins to rise 3-4 hours after the onset of ischemia. Repeat in 4-6 hours if the sample was drawn within 3-4 hours of the onset of the symptom and found normal. Diagnosis of myocardial injury is made with acute changes in cTn concentrations with at least one serial sample above the 99th percentile upper reference limit (URL), taken together with the patient's clinical presentation. Biotin has been reported to cause a negative bias, interpret results relative to patient's use of biotin. Lab Interpretation Normal (test code = 46036-7) [facility] [id number] 15:08:15 Test Item Value Reference Range Interpretation Comments NT-proBNP (test code 315 pg/mL See_Comment H [Autom ated = [id number]) message] The system which generated this result transmitted reference range : <=125. The reference range was not used to interpret this result as normal/abnormal . DARIN (test code = DARIN) Biotin has been reported to cause a negative bias, interpret results relative to patient's use of biotin. Lab Interpretation Abnormal (test code = 25852-0) [facility] 15:00:12 Test Item Value Reference Range Interpretation Comments ALCOHOL (test code = <10 mg/dL 6077603081) DARIN (test code = DARIN) <10 Tnsfxjzp29-659 Toxic>100 Depression of CRULL[employer] MACHINE>400 Fatalities Reported [facility] METABOLIC PANEL ([id number] 14:58:56 Test Item Value Reference Range Interpretation Comments NA (test code = 139 mmol/L 135-145 2874999503) K (test code = 4.7 mmol/L 3.5-5.0 5520934328) CL (test code = 106 mmol/L 98-108 3161951715) CO2 TOTAL (test code = 27 mmol/L 23-31 4881638764) AGAP (test code = 2-16 2496036925) BUN (test code = 20 mg/dL 7-23 7479835459) GLUCOSE (test code = 125 mg/dL 70-110 H 4911694380) CREATININE (test code = 0.92 mg/dL 0.60-1.25 0095309912) TOTAL BILI (test code = 0.2 mg/dL 0.1-1.6 9664100372) CALCIUM (test code = 8.3 mg/dL 8.6-10.6 L 4152260379) T PROTEIN (test code = 7.1 g/dL 6.3-8.2 9862920250) ALBUMIN (test code = 3.9 g/dL 3.5-5.0 5392773372) ALK PHOS (test code = 152 U/L 34-122 H 0324356422) ALTv (test code = 21 U/L 5-50 1742-6) AST(SGOT) (test code = 25 U/L 13-40 6534453069) eGFR (test code = mL/min/1.73m2 0679843710) DARIN (test code = DARIN) Association of Glomerular Filtration Rate (GFR) and Staging of Kidney Disease* + --+ --+ ------+| GFR (mL/min/1.73 m2) ?| With Kidney Damage ?| ?Without Kidney Damage+ --------+ --------+ +| ?>90 ?| ?Stage one ?| ? Normal ?+ ---+ ---+ -------+| ?60-89 ?| ?Stage two ?| ? Decreased GFR ? + --+ --+ ------+| ?30-59 ?| ?Stage three ?| ? Stage three ? + --+ --+ ------+| ?15-29 ?| ?Stage four ? | ? Stage four ?+ ---+ ---+ -------+| ?<15 (or dialysis) ? ?| ?Stage five ? | ? Stage five ?+ ---+ ---+ -------+ *Each stage assumes the associated GFR level has been in effect for at least three months. ?Stages 1 to 5, with or without kidney disease, indicate chronic kidney disease. Notes: Determination of stages one and two (with eGFR >59mL/min/1.73 m2) requires estimation of kidney damage for at least three months as defined by structural or functional abnormalities of the kidney, manifested by either:Pathological abnormalities or Markers of kidney damage (including abnormalities in the composition of the blood or urine or abnormalities in imaging tests). Lab Interpretation Abnormal (test code = 58717-0) [facility]IV[facility] THRMPLAS [id number] 14:58:36 Test Item Value Reference Range Interpretation Comments APTT Patient (test See_Comment [Automat ed code = 3173-2) message] The system which generated this result transmitted reference range : 23 - 38 Seconds . The reference range was not used to interpr et this result as normal/abnormal . DARIN (test code = DARIN) The [facility] patient population mean normal value for aPTT is 30 seconds. Lab Interpretation Normal (test code = 06252-5) [facility] DallasPROTHROMBIN TIME / [id number] 14:56:36 Test Item Value Reference Range Interpretation Comments PROTIME PATIENT (test See_Comment [Auto mated message] code = 5964-2) The system wh ich generated this result transmitted ref erence range: 12.0 - 1 4.7 Seconds. The re ference range was not u sed to interpret this result as normal/abnor mal. INR (test code = 6301-6) Nor mal INR <1.1; Warfarin Therap eutic range 2.0 to 3. 0 or 2.5 to 3.5, dep ending upon the indica tions. Lab Interpretation (test Normal code = 24434-1) [facility] DallasLactic Acid Whole [id number] 14:18:15 Test Item Value Reference Range Interpretation Comments LACTIC ACID (test code = 1.65 mmol/L 0.50-2.20 1998622542) Lab Interpretation (test code = Normal 53849-7) [facility]- US ELASTO EACH [id number] 07:28:00 [facility] : 1950 Sex: MPatient Name: ELENO GROSSMAN Unit No: [id number] EXAMS: CPT CODE: [id number] US ELASTO EACH ORG 60890 EXAM: US ELASTOGRAPHY LOCATION: C3 INDICATION: Possible cirrhosis ADDITIONAL INFORMATION: None. COMPARISON: Elastogram dated 11/24/2020 TECHNIQUE: Twelve elastography samples were obtained from the liver. FINDINGS: Average liver stiffness is 7.86 kPa IQR is 3.65 kPa. IQR/Median is 46.4 %. IMPRESSION: Limited study. Average liver stiffness suggests normal to mild fibrosis (Metavir Score F1). However, IQR/Median is greater than 30% which suggests data set may not be reliable. This data set is also likely not accurate given the great difference from prior study performed November 2020. Bertram liriano Signed by SARI MCDONALD M.D. on 12/22/2020 at 0728 Reported and signed by: SARI MCDONALD M.D. CC: Julien Coronel Jr, MD; Guy Marcial MD Technologist: Kayy Suarez Probe: Trscr Dt/Tm: 12/22/2020 (0728) by:[email or web address] Printed Date/Time: 12/22/2020 (0759) Name: ELENO GROSSMAN Yoni FRANKLIN [facility] Phys: Julien Self Jr, MD [address] : 1950 Age: 70 Sex: [place] [address] Loc: ALISIA Exam Date: 12/20/2020 Status: REG REFPH: FAX: PAGE 1 Signed ReportCOPPER 2020-12-22 02:09:00 Test Item Value Reference Range Interpretation Comments COPPER (test code = 132 ug/dL 69-132 Detecti on Limit = 5 WINDOW INSTALLER) Please note r eference interval changePerform ed At: [facility] [address] [id number] ra Freddy JOHNSON Ph:[phone] ANTINUCLEAR ANTIBODIES [id number] 13:13:00 Test Item Value Reference Range Interpretation Comments KATYA SCREEN (test Negative See_Comment Negative < 1:80 code = ANASCR) Borderline 1: 80 Positive >1:80Performed At: [facility] [address] [id number] Kyle L MD Ph:[phone] [ Automated message] The sy stem which generated this result transmitted ref erence range: (). The reference range was not u sed to interpret this result as normal/abnormal . 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 The reference range was not u sed to interpret this result as normal/abnormal . AB HEPATITIS B [id number] 13:12:00 Test Item Value Reference Range Interpretation Comments AB HEPATITIS B SURFACE (test code Nonreactive Nonreactive = HBSAB) AG HEPATITIS B [id number] 13:12:00 Test Item Value Reference Range Interpretation Comments AG HEPATITIS B SURFACE (test code Nonreactive Nonreactive = HBSAG) AB [id number] 13:12:00 Test Item Value Reference Range Interpretation Comments AB ANTI-MITOCHONDRIAL See_Comment [Auto mated message] The (test code = MITOAB) system which generated this result transmit temi reference range : <1:20. The reference range was not used to interpr et this result as sanjay l/abnormal. - US ABDOMEN [id number] 11:21:00 [facility] : 1950 Sex: MPatient Name: ELENO GROSSMAN Unit No: [id number] EXAMS: CPT CODE: [id number] US ABDOMEN COMPLETE 07125 CLINICAL HISTORY: abnormal liver enzymes. LOCATION: A1 FINDINGS: Real-time grayscale sonographic evaluation of the abdomen is performed with limited color Doppler evaluation. Comparison is made with CT abdomen/pelvis without contrast dated November 26, 2020. Please note that visualization is sign ificantly limited by patient body habitus. The visualized portions of the liver appear to be within normal limits. There is no evidence of intra or extrahepatic biliary ductal dilatation. The common bile duct measures 5 mm in width. The gallbladder is within normal limits. The pancreas is normal in appearance. The kidneys demonstrate normal cortical echogenicity. The right kidney measures 10.2 cm andthe left kidney measures 9.1 cm. Small echogenic foci are present throughout the spleen consistent with calcifications seen on CT. These are likely secondary to old granulomatous disease. The spleen measures 9.4 cm. No free fluid noted. The aorta demonstrates normal caliber. The IVC appears to be within normal limits. IMPRESSION: 1. No significant abnormalities are identified on this study limited bypatient body habitus. The liver in particular is poorly visualized. at 1121 Reported and signed by: KIRAN MORA M.D. CC: Julien Coronel Jr, MD; Guy Marcial MD Technologist: Kayy Suarez Probe: Trscr Dt/Tm: 12/20/2020 (1121) by:[email or web address] Printed Date/Time: 12/20/2020 (1125) Name: ELENO GROSSMAN JR [facility] Phys: Julien Self Jr, MD [address] : 1950 Age: 70 Sex: [place] [address] Loc: ALISIA Exam Date: 12/20/2020 Status: REG REF PH: FAX: PAGE 1 Signed ReportALPHA 1 [id number] 14:09:00 Test Item Value Reference Range Interpretation Comments ALPHA 1 ANTITRYPSIN (test code = ONZB0DAV) [id number] 14:09:00 Test Item Value Reference Range Interpretation Comments CERULOPLASMIN (test code = CER) 29.5 mg/dL 16.0-31.0 [id number] 14:09:00 Test Item Value Reference Range Interpretation Comments FERRITIN (test code = 53.7 ng/mL 22.0-322.0 N Please note: New LEANDER) Reference Range Sep 2020 ALPHA 1 [id number] 14:09:00 Test Item Value Reference Range Interpretation Comments ALPHA 1 ANTITRYPSIN 155 mg/dL 101-187 Performe d At: DA (test code = OJTA2CLE) [facility] [id number] [facility] [address] [place], [place] [id number] h MICAELA JOHNSON Ph:[phone] [id number] 14:09:00 Test Item Value Reference Range Interpretation Comments CERULOPLASMIN (test code = CER) 29.5 mg/dL 16.0-31.0 [id number] 14:09:00 Test Item Value Reference Range Interpretation Comments FERRITIN (test code = 53.7 ng/mL 22.0-322.0 N Please note: New LEANDER) Reference Range Sep 2020 CBC W/AUTO [id number] 07:55:00 Test Item Value Reference Range Interpretation Comments WHITE BLOOD CELL (test code = 10.2 x10 3/uL 4.8-10.8 N WBC) RED BLOOD CELL (test code = 3.06 x10 6/uL 4.70-6.10 L RBC) HEMOGLOBIN (test code = HGB) 9.7 g/dL 14.0-18.0 L HEMATOCRIT (test code = HCT) 29.4 % 42.0-52.0 L MEAN CELL VOLUME (test code = 96.1 fL 80.0-94.0 H MCV) MEAN CELL HGB (test code = MCH) 31.7 pg 27-31 H MEAN CELL HGB CONCENTRATION 33.0 G/DL 33-36.5 N (test code = MCHC) RED CELL DISTRIBUTION WIDTH 15.0 % 12.9-16.9 N (test code = RDW) PLATELET COUNT (test code = 320 x10 3/uL 150-440 N PLT) MEAN PLATELET VOLUME (test code 8.8 fL 8.9-12.4 L = MPV) NEUTROPHIL % (test code = NT%) 39.6 % 42.2-75.2 L LYMPHOCYTE % (test code = LY%) 45.6 % 20.5-51.1 N MONOCYTE % (test code = MO%) 9.8 % 1.7-9.3 H EOSINOPHIL % (test code = EO%) 3.8 % 0.0-7.0 N BASOPHIL % (test code = BA%) 0.9 % 0-2.5 N NEUTROPHIL # (test code = NT#) 4.06 x10 3/uL 1.80-7.70 N LYMPHOCYTE # (test code = LY#) 4.67 x10 3/uL 1.00-4.80 N MONOCYTE # (test code = MO#) 1.00 x10 3/uL 0.00-0.80 H EOSINOPHIL # (test code = EO#) 0.39 x10 3/uL 0.00-0.45 N BASOPHIL # (test code = BA#) 0.09 x10 3/uL 0.0-0.20 N COMPREHENSIVE METABOLIC [id number] 07:05:00 Test Item Value Reference Range Interpretation Comments SODIUM (test code = 142 mmol/L 136-145 N Please n ote: New NA) Reference Range Sep 2020 POTASSIUM (test 5.1 mmol/L 3.5-5.1 N code = K) CHLORIDE (test code 108 mmol/L 98-107 H Please n ote: New = CL) Reference Range Sep 2020 CARBON DIOXIDE 28 mmol/L 20-31 N Please note: New (test code = CO2) Reference Range Sep 2020 GLUCOSE (test code 101 mg/dL 74-106 N Please no te: New = GLU) Reference Range Sep 2020 BLOOD UREA NITROGEN 20 mg/dL 9-23 N Please n ote: New (test code = BUN) Reference Range Sep 2020 GLOMERULAR >=60 max >60 The estimated FILTRATION RATE estimate glomerular (test code = GFR) filtration rate is computed usingpatient ra ce, age (>18), sex, and serum creatinin e. If anyof the ne eded data elements a re missing the Laboratory cristiano ot compute an estimation of t he glomerular filtration rate . CREATININE (test 1.00 mg/dL 0.70-1.30 N Please note : New code = CREAT) Reference Rang e Sep 2020 TOTAL PROTEIN (test 6.1 g/dL 5.7-8.2 N Please n ote: New code = PROT) Reference Range Sep 2020 ALBUMIN (test code 3.8 g/dL 3.2-4.8 N Please no te: New = ALB) Reference Range Sep 2020 CALCIUM (test code 8.7 mg/dL 8.7-10.4 N Please no te: New = CA) Reference Range Sep 2020 BILIRUBIN TOTAL 0.2 mg/dL 0.3-1.2 L Please note: New (test code = BILT) Reference Range Sep 2020 SGOT/AST (test code 45 U/L <34 H Please n ote: New = AST) Reference Range Sep 2020 SGPT/ALT (test code 61 U/L 10-49 H Please n ote: New = ALT) Reference Range Sep 2020 ALKALINE 129 U/L 46-116 H Please note: Ne w PHOSPHATASE (test Reference Range Feb code = ALKP) 2020 LIVER FUNCTION [id number] 07:05:00 Test Item Value Reference Range Interpretation Comments BILIRUBIN DIRECT < 0.1 mg/dL <0.3 N Please note : New (test code = BILD) Reference Range Sep 2020 CBC W/AUTO [id number] 06:47:00 Test Item Value Reference Range Interpretation Comments WHITE BLOOD CELL (test code = 10.2 x10 3/uL 4.8-10.8 N WBC) RED BLOOD CELL (test code = 3.06 x10 6/uL 4.70-6.10 L RBC) HEMOGLOBIN (test code = HGB) 9.7 g/dL 14.0-18.0 L HEMATOCRIT (test code = HCT) 29.4 % 42.0-52.0 L MEAN CELL VOLUME (test code = 96.1 fL 80.0-94.0 H MCV) MEAN CELL HGB (test code = MCH) 31.7 pg 27-31 H MEAN CELL HGB CONCENTRATION 33.0 G/DL 33-36.5 N (test code = MCHC) RED CELL DISTRIBUTION WIDTH 15.0 % 12.9-16.9 N (test code = RDW) PLATELET COUNT (test code = 320 x10 3/uL 150-440 N PLT) MEAN PLATELET VOLUME (test code 8.8 fL 8.9-12.4 L = MPV) NEUTROPHIL % (test code = NT%) % 42.2-75.2 LYMPHOCYTE % (test code = LY%) % 20.5-51.1 MONOCYTE % (test code = MO%) % 1.7-9.3 EOSINOPHIL % (test code = EO%) % 0.0-7.0 BASOPHIL % (test code = BA%) % 0-2.5 NEUTROPHIL # (test code = NT#) x10 3/uL 1.80-7.70 LYMPHOCYTE # (test code = LY#) x10 3/uL 1.00-4.80 MONOCYTE # (test code = MO#) x10 3/uL 0.00-0.80 EOSINOPHIL # (test code = EO#) x10 3/uL 0.00-0.45 ANTINUCLEAR ANTIBODIES [id number] 10:30:00 Test Item Value Reference Range Interpretation Comments KATYA SCREEN (test code = ANASCR) AB HEPATITIS B [id number] 10:30:00 Test Item Value Reference Range Interpretation Comments AB HEPATITIS B SURFACE (test code Nonreactive Nonreactive = HBSAB) AG HEPATITIS B [id number] 10:30:00 Test Item Value Reference Range Interpretation Comments AG HEPATITIS B SURFACE (test code Nonreactive Nonreactive = HBSAG) AB [id number] 10:30:00 Test Item Value Reference Range Interpretation Comments AB ANTI-MITOCHONDRIAL See_Comment [Auto mated message] The (test code = MITOAB) system which generated this result transmit temi reference range : <1:20. The reference range was not used to interpr et this result as sanjay l/abnormal. AB [id number] 10:30:00 Test Item Value Reference Range Interpretation Comments AB TREPONEMA (test code = TREPAB) NONREACTIVE NONREACTIVE ALPHA 1 [id number] 10:17:00 Test Item Value Reference Range Interpretation Comments ALPHA 1 ANTITRYPSIN (test code = ACZA8LRH) [id number] 10:17:00 Test Item Value Reference Range Interpretation Comments CERULOPLASMIN (test code = CER) [id number] 10:17:00 Test Item Value Reference Range Interpretation Comments FERRITIN (test code = 53.7 ng/mL 22.0-322.0 N Please note: New LEANDER) Reference Range Sep 2020 ALPHA FETOPROTEIN TUMOR [id number] 10:17:00 Test Item Value Reference Range Interpretation Comments ALPHA FETOPROTEIN < 2.2 ng/dL <8.1 N Please not e: New TUMOR MARKER (test Reference Range Feb code = AFPTM) 2020 COMPREHENSIVE METABOLIC [id number] 06:19:00 Test Item Value Reference Range Interpretation Comments SODIUM (test code = 141 mmol/L 136-145 N Please n ote: New NA) Reference Range Sep 2020 POTASSIUM (test 4.5 mmol/L 3.5-5.1 N code = K) CHLORIDE (test code 108 mmol/L 98-107 H Please n ote: New = CL) Reference Range Sep 2020 CARBON DIOXIDE 29 mmol/L 20-31 N Please note: New (test code = CO2) Reference Range Sep 2020 GLUCOSE (test code 105 mg/dL 74-106 N Please no te: New = GLU) Reference Range Sep 2020 BLOOD UREA NITROGEN 17 mg/dL 9-23 N Please n ote: New (test code = BUN) Reference Range Sep 2020 GLOMERULAR >=60 max >60 The estimated FILTRATION RATE estimate glomerular (test code = GFR) filtration rate is computed usingpatient ra ce, age (>18), sex, and serum creatinin e. If anyof the ne eded data elements a re missing the Laboratory cristiano ot compute an estimation of t he glomerular filtration rate . CREATININE (test 0.90 mg/dL 0.70-1.30 N Please note : New code = CREAT) Reference Rang e Sep 2020 TOTAL PROTEIN (test 6.2 g/dL 5.7-8.2 N Please n ote: New code = PROT) Reference Range Sep 2020 ALBUMIN (test code 3.8 g/dL 3.2-4.8 N Please no te: New = ALB) Reference Range Sep 2020 CALCIUM (test code 8.7 mg/dL 8.7-10.4 N Please no te: New = CA) Reference Range Sep 2020 BILIRUBIN TOTAL 0.2 mg/dL 0.3-1.2 L Please note: New (test code = BILT) Reference Range Sep 2020 SGOT/AST (test code 60 U/L <34 H Please n ote: New = AST) Reference Range Sep 2020 SGPT/ALT (test code 74 U/L 10-49 H Please n ote: New = ALT) Reference Range Sep 2020 ALKALINE 137 U/L 46-116 H Please note: Ne w PHOSPHATASE (test Reference Range Feb code = ALKP) 2020 CBC W/AUTO [id number] 06:12:00 Test Item Value Reference Range Interpretation Comments WHITE BLOOD CELL (test code = 9.8 x10 3/uL 4.8-10.8 N WBC) RED BLOOD CELL (test code = 3.13 x10 6/uL 4.70-6.10 L RBC) HEMOGLOBIN (test code = HGB) 9.8 g/dL 14.0-18.0 L HEMATOCRIT (test code = HCT) 29.5 % 42.0-52.0 L MEAN CELL VOLUME (test code = 94.2 fL 80.0-94.0 H MCV) MEAN CELL HGB (test code = MCH) 31.3 pg 27-31 H MEAN CELL HGB CONCENTRATION 33.2 G/DL 33-36.5 N (test code = MCHC) RED CELL DISTRIBUTION WIDTH 14.8 % 12.9-16.9 N (test code = RDW) PLATELET COUNT (test code = 301 x10 3/uL 150-440 N PLT) MEAN PLATELET VOLUME (test code 8.4 fL 8.9-12.4 L = MPV) NEUTROPHIL % (test code = NT%) 40.2 % 42.2-75.2 L LYMPHOCYTE % (test code = LY%) 45.0 % 20.5-51.1 N MONOCYTE % (test code = MO%) 9.5 % 1.7-9.3 H EOSINOPHIL % (test code = EO%) 4.5 % 0.0-7.0 N BASOPHIL % (test code = BA%) 0.5 % 0-2.5 N NEUTROPHIL # (test code = NT#) 3.92 x10 3/uL 1.80-7.70 N LYMPHOCYTE # (test code = LY#) 4.39 x10 3/uL 1.00-4.80 N MONOCYTE # (test code = MO#) 0.93 x10 3/uL 0.00-0.80 H EOSINOPHIL # (test code = EO#) 0.44 x10 3/uL 0.00-0.45 N BASOPHIL # (test code = BA#) 0.05 x10 3/uL 0.0-0.20 N COVID 19 Asymptomatic IH [id number] 16:30:00 Test Item Value Reference Range Interpretation Comments COVID 19 NEGATIVE NEGATIVE Negative result s, from Asymptomatic IH AG patients with symptom (test code = onset beyondfiv e days, COVNONPUIAG) should be treat ed as presumptive and confirmationwit h a molecular assay , if necessary for patientmanageme nt, may be performed. Nega tive results do not ruleout COVID-19 and sh ould not be used as the sole basis fortreatment or patient management deci sions, includinginfect ion control decisio ns. Negative result s should beconsidered in the context of a pa aiden's recent exposure s,history and the presenc e of clinical signs and symptomsconsist ent with COVID-19. COMPREHENSIVE METABOLIC [id number] 06:07:00 Test Item Value Reference Range Interpretation Comments SODIUM (test code = 139 mmol/L 136-145 N Please n ote: New NA) Reference Range Sep 2020 POTASSIUM (test 4.3 mmol/L 3.5-5.1 N code = K) CHLORIDE (test code 106 mmol/L 98-107 N Please n ote: New = CL) Reference Range Sep 2020 CARBON DIOXIDE 27 mmol/L 20-31 N Please note: New (test code = CO2) Reference Range Sep 2020 GLUCOSE (test code 104 mg/dL 74-106 N Please no te: New = GLU) Reference Range Sep 2020 BLOOD UREA NITROGEN 19 mg/dL 9-23 N Please n ote: New (test code = BUN) Reference Range Sep 2020 GLOMERULAR >=60 max >60 The estimated FILTRATION RATE estimate glomerular (test code = GFR) filtration rate is computed usingpatient ra ce, age (>18), sex, and serum creatinin e. If anyof the ne eded data elements a re missing the Laboratory cristiano ot compute an estimation of t he glomerular filtration rate . CREATININE (test 1.00 mg/dL 0.70-1.30 N Please note : New code = CREAT) Reference Rang e Sep 2020 TOTAL PROTEIN (test 6.2 g/dL 5.7-8.2 N Please n ote: New code = PROT) Reference Range Sep 2020 ALBUMIN (test code 3.8 g/dL 3.2-4.8 N Please no te: New = ALB) Reference Range Sep 2020 CALCIUM (test code 8.3 mg/dL 8.7-10.4 L Please no te: New = CA) Reference Range Sep 2020 BILIRUBIN TOTAL < 0.2 mg/dL 0.3-1.2 L Please note: New (test code = BILT) Reference Range Sep 2020 SGOT/AST (test code 56 U/L <34 H Please n ote: New = AST) Reference Range Sep 2020 SGPT/ALT (test code 60 U/L 10-49 H Please n ote: New = ALT) Reference Range Sep 2020 ALKALINE 134 U/L 46-116 H Please note: Ne w PHOSPHATASE (test Reference Range Feb code = ALKP) 2020 CBC W/AUTO [id number] 05:49:00 Test Item Value Reference Range Interpretation Comments WHITE BLOOD CELL (test code = 8.7 x10 3/uL 4.8-10.8 N WBC) RED BLOOD CELL (test code = 3.17 x10 6/uL 4.70-6.10 L RBC) HEMOGLOBIN (test code = HGB) 9.9 g/dL 14.0-18.0 L HEMATOCRIT (test code = HCT) 30.1 % 42.0-52.0 L MEAN CELL VOLUME (test code = 95.0 fL 80.0-94.0 H MCV) MEAN CELL HGB (test code = MCH) 31.2 pg 27-31 H MEAN CELL HGB CONCENTRATION 32.9 G/DL 33-36.5 L (test code = MCHC) RED CELL DISTRIBUTION WIDTH 14.9 % 12.9-16.9 N (test code = RDW) PLATELET COUNT (test code = 307 x10 3/uL 150-440 N PLT) MEAN PLATELET VOLUME (test code 8.3 fL 8.9-12.4 L = MPV) NEUTROPHIL % (test code = NT%) 46.7 % 42.2-75.2 N LYMPHOCYTE % (test code = LY%) 36.2 % 20.5-51.1 N MONOCYTE % (test code = MO%) 11.1 % 1.7-9.3 H EOSINOPHIL % (test code = EO%) 4.8 % 0.0-7.0 N BASOPHIL % (test code = BA%) 0.6 % 0-2.5 N NEUTROPHIL # (test code = NT#) 4.06 x10 3/uL 1.80-7.70 N LYMPHOCYTE # (test code = LY#) 3.14 x10 3/uL 1.00-4.80 N MONOCYTE # (test code = MO#) 0.96 x10 3/uL 0.00-0.80 H EOSINOPHIL # (test code = EO#) 0.42 x10 3/uL 0.00-0.45 N BASOPHIL # (test code = BA#) 0.05 x10 3/uL 0.0-0.20 N COMPREHENSIVE METABOLIC [id number] 09:41:00 Test Item Value Reference Range Interpretation Comments SODIUM (test code = mmol/L 136-145 NA) POTASSIUM (test 4.0 mmol/L 3.5-5.1 N code = K) CHLORIDE (test code 105 mmol/L 98-107 N Please n ote: New = CL) Reference Range Sep 2020 CARBON DIOXIDE 27 mmol/L 20-31 N Please note: New (test code = CO2) Reference Range Sep 2020 GLUCOSE (test code 84 mg/dL 74-106 N Please no te: New = GLU) Reference Range Sep 2020 BLOOD UREA NITROGEN 12 mg/dL 9-23 N Please n ote: New (test code = BUN) Reference Range Sep 2020 GLOMERULAR >=60 max >60 The estimated FILTRATION RATE estimate glomerular (test code = GFR) filtration rate is computed usingpatient ra ce, age (>18), sex, and serum creatinin e. If anyof the ne eded data elements a re missing the Laboratory cristiano ot compute an estimation of t he glomerular filtration rate . CREATININE (test 1.00 mg/dL 0.70-1.30 N Please note : New code = CREAT) Reference Rang e Sep 2020 TOTAL PROTEIN (test g/dL 5.7-8.2 code = PROT) ALBUMIN (test code g/dL 3.2-4.8 = ALB) CALCIUM (test code 8.6 mg/dL 8.7-10.4 L Please no te: New = CA) Reference Range Sep 2020 BILIRUBIN TOTAL mg/dL 0.3-1.2 (test code = BILT) SGOT/AST (test code U/L <34 = AST) SGPT/ALT (test code U/L 10-49 = ALT) ALKALINE U/L 46-116 PHOSPHATASE (test code = ALKP) COMPREHENSIVE METABOLIC [id number] 09:41:00 Test Item Value Reference Range Interpretation Comments SODIUM (test code = 140 mmol/L 136-145 N Please n ote: New NA) Reference Range Sep 2020 POTASSIUM (test 4.0 mmol/L 3.5-5.1 N code = K) CHLORIDE (test code 105 mmol/L 98-107 N Please n ote: New = CL) Reference Range Sep 2020 CARBON DIOXIDE 27 mmol/L 20-31 N Please note: New (test code = CO2) Reference Range Sep 2020 GLUCOSE (test code 84 mg/dL 74-106 N Please no te: New = GLU) Reference Range Sep 2020 BLOOD UREA NITROGEN 12 mg/dL 9-23 N Please n ote: New (test code = BUN) Reference Range Sep 2020 GLOMERULAR >=60 max >60 The estimated FILTRATION RATE estimate glomerular (test code = GFR) filtration rate is computed usingpatient ra ce, age (>18), sex, and serum creatinin e. If anyof the ne eded data elements a re missing the Laboratory cristiano ot compute an estimation of t he glomerular filtration rate . CREATININE (test 1.00 mg/dL 0.70-1.30 N Please note : New code = CREAT) Reference Rang e Sep 2020 TOTAL PROTEIN (test 6.1 g/dL 5.7-8.2 N Please n ote: New code = PROT) Reference Range Sep 2020 ALBUMIN (test code 3.7 g/dL 3.2-4.8 N Please no te: New = ALB) Reference Range Sep 2020 CALCIUM (test code 8.6 mg/dL 8.7-10.4 L Please no te: New = CA) Reference Range Sep 2020 BILIRUBIN TOTAL 0.2 mg/dL 0.3-1.2 L Please note: New (test code = BILT) Reference Range Sep 2020 SGOT/AST (test code 50 U/L <34 H Please n ote: New = AST) Reference Range Sep 2020 SGPT/ALT (test code 52 U/L 10-49 H Please n ote: New = ALT) Reference Range Sep 2020 ALKALINE 144 U/L 46-116 H Please note: Ne w PHOSPHATASE (test Reference Range Feb code = ALKP) 2020 CBC W/AUTO [id number] 09:25:00 Test Item Value Reference Range Interpretation Comments WHITE BLOOD CELL (test code = 8.1 x10 3/uL 4.8-10.8 N WBC) RED BLOOD CELL (test code = 3.40 x10 6/uL 4.70-6.10 L RBC) HEMOGLOBIN (test code = HGB) 10.8 g/dL 14.0-18.0 L HEMATOCRIT (test code = HCT) 32.6 % 42.0-52.0 L MEAN CELL VOLUME (test code = 95.9 fL 80.0-94.0 H MCV) MEAN CELL HGB (test code = MCH) 31.8 pg 27-31 H MEAN CELL HGB CONCENTRATION 33.1 G/DL 33-36.5 N (test code = MCHC) RED CELL DISTRIBUTION WIDTH 15.0 % 12.9-16.9 N (test code = RDW) PLATELET COUNT (test code = 373 x10 3/uL 150-440 N PLT) MEAN PLATELET VOLUME (test code 8.9 fL 8.9-12.4 N = MPV) NEUTROPHIL % (test code = NT%) 37.6 % 42.2-75.2 L LYMPHOCYTE % (test code = LY%) 43.2 % 20.5-51.1 N MONOCYTE % (test code = MO%) 11.4 % 1.7-9.3 H EOSINOPHIL % (test code = EO%) 6.8 % 0.0-7.0 N BASOPHIL % (test code = BA%) 0.6 % 0-2.5 N NEUTROPHIL # (test code = NT#) 3.02 x10 3/uL 1.80-7.70 N LYMPHOCYTE # (test code = LY#) 3.48 x10 3/uL 1.00-4.80 N MONOCYTE # (test code = MO#) 0.92 x10 3/uL 0.00-0.80 H EOSINOPHIL # (test code = EO#) 0.55 x10 3/uL 0.00-0.45 H BASOPHIL # (test code = BA#) 0.05 x10 3/uL 0.0-0.20 N COMPREHENSIVE METABOLIC [id number] 06:46:00 Test Item Value Reference Range Interpretation Comments SODIUM (test code = 138 mmol/L 136-145 N Please n ote: New NA) Reference Range Sep 2020 POTASSIUM (test 4.2 mmol/L 3.5-5.1 N code = K) CHLORIDE (test code 105 mmol/L 98-107 N Please n ote: New = CL) Reference Range Sep 2020 CARBON DIOXIDE 27 mmol/L 20-31 N Please note: New (test code = CO2) Reference Range Sep 2020 GLUCOSE (test code 103 mg/dL 74-106 N Please no te: New = GLU) Reference Range Sep 2020 BLOOD UREA NITROGEN 12 mg/dL 9-23 N Please n ote: New (test code = BUN) Reference Range Sep 2020 GLOMERULAR >=60 max >60 The estimated FILTRATION RATE estimate glomerular (test code = GFR) filtration rate is computed usingpatient ra ce, age (>18), sex, and serum creatinin e. If anyof the ne eded data elements a re missing the Laboratory cristiano ot compute an estimation of t he glomerular filtration rate . CREATININE (test 1.10 mg/dL 0.70-1.30 N Please note : New code = CREAT) Reference Rang e Sep 2020 TOTAL PROTEIN (test 6.3 g/dL 5.7-8.2 N Please n ote: New code = PROT) Reference Range Sep 2020 ALBUMIN (test code 3.8 g/dL 3.2-4.8 N Please no te: New = ALB) Reference Range Sep 2020 CALCIUM (test code 8.7 mg/dL 8.7-10.4 N Please no te: New = CA) Reference Range Sep 2020 BILIRUBIN TOTAL 0.2 mg/dL 0.3-1.2 L Please note: New (test code = BILT) Reference Range Sep 2020 SGOT/AST (test code 46 U/L <34 H Please n ote: New = AST) Reference Range Sep 2020 SGPT/ALT (test code 49 U/L 10-49 N Please n ote: New = ALT) Reference Range Sep 2020 ALKALINE 157 U/L 46-116 H Please note: Ne w PHOSPHATASE (test Reference Range Feb code = ALKP) 2020 CBC W/AUTO [id number] 06:32:00 Test Item Value Reference Range Interpretation Comments WHITE BLOOD CELL (test code = 10.3 x10 3/uL 4.8-10.8 N WBC) RED BLOOD CELL (test code = 3.16 x10 6/uL 4.70-6.10 L RBC) HEMOGLOBIN (test code = HGB) 10.0 g/dL 14.0-18.0 L HEMATOCRIT (test code = HCT) 29.5 % 42.0-52.0 L MEAN CELL VOLUME (test code = 93.4 fL 80.0-94.0 N MCV) MEAN CELL HGB (test code = MCH) 31.6 pg 27-31 H MEAN CELL HGB CONCENTRATION 33.9 G/DL 33-36.5 N (test code = MCHC) RED CELL DISTRIBUTION WIDTH 14.5 % 12.9-16.9 N (test code = RDW) PLATELET COUNT (test code = 431 x10 3/uL 150-440 N PLT) MEAN PLATELET VOLUME (test code 8.6 fL 8.9-12.4 L = MPV) NEUTROPHIL % (test code = NT%) 40.3 % 42.2-75.2 L LYMPHOCYTE % (test code = LY%) 40.4 % 20.5-51.1 N MONOCYTE % (test code = MO%) 12.5 % 1.7-9.3 H EOSINOPHIL % (test code = EO%) 6.2 % 0.0-7.0 N BASOPHIL % (test code = BA%) 0.4 % 0-2.5 N NEUTROPHIL # (test code = NT#) 4.13 x10 3/uL 1.80-7.70 N LYMPHOCYTE # (test code = LY#) 4.14 x10 3/uL 1.00-4.80 N MONOCYTE # (test code = MO#) 1.28 x10 3/uL 0.00-0.80 H EOSINOPHIL # (test code = EO#) 0.64 x10 3/uL 0.00-0.45 H BASOPHIL # (test code = BA#) 0.04 x10 3/uL 0.0-0.20 N - MRI BRAIN W/O [id number] 13:10:00 [facility] : 1950 Sex: MPatient Name: ELENO GROSSMAN Unit No: [id number] EXAMS: CPT CODE: [id number] MRI BRAIN W/O CONTRAST [id number] EXAM: MRI of the Brain without contrast Location: A1 HISTORY: Altered mental status and respiratory failure COMPARISON: Correlation with CT from 12/02/2020 TECHNIQUE: Sagittal T1, axial T1, T2, FLAIR, T2 gradient, diffusion with ADC mapping and coronal FLAIR and diffusion with ADCweighted imag es of the brain and brainstem were obtained without contrast. FINDINGS: Postoperative changes include a right frontoparietal temporal craniotomy. There is T1 hyperintense fluid collection subjacent to the craniotomy flap and overlying the right cerebral convexity likely representing subacute subdural h ematoma. There is mild associated diffusion abnormality within this collection compatible with hemorrhagic effect. Further hemosiderin staining is noted in the subarachnoid space along the right frontal convexity near the vertex and adjacent to small resection cavity. There is mild mass effect on theadjacent sulci especially over lying the right frontal lobe. There is no midline shift. There is minimal T2 signal abnormality in the subcortical white matter in the right frontal lobe which may represent minimal residual vasogenic edema versus further nonspecific gliosis. There is no significant masseffect. No diffusion abnormalities are identified to suggest acute ischemic infarct. No further blood products are seen. No underlying mass lesion is seen. There are further scattered T2/flair abnormalities within subcortical and deep white matter which are nonspecific. Normal signal voids are seen within the intracranial arterial vasculature and dural venous sinuses. There is mucosal thickening of bilateral ethmoid air cells. The remaining paranasal sinuses are clear. There is small fluid within bilateral mastoid air cells. Note is made of bilateral lens replacements. Intraorbital contents are within normal limits. IMPRESSION: 1. Postoperative changes include a right frontoparietal temporal craniotomy. There are subacute subdural blood products subjacent to the craniotomy and overlying the right cerebral convexity with minimal mass effect. There is no midline shift. There are also small subarachnoid blood products overlying the right frontal convexity and within small parenchymal cavity. Please correlate with patient's surgical history. 2. T2 signal abnormality within the subcortical right frontal lobe Name: JOHANNAELENO Yoni FRANKLIN [facility] Phys: - Guy Marcial MD [address] : 1950 Age: 70 Sex: M [place], [place] [address] Loc: P.PSCLIEN Exam Date: 12/08/2020 Status: REG REF PH: FAX: PAGE 1 Signed Report (CONTINUED) Patient Name: ELENO GROSSMAN JR Unit No: [id number] EXAMS: CPT CODE: [id number] MRI BRAIN W/O CONTRAST 34352 <Continued> may represent sequelae of edema. No significant mass effect is seen. 3. Further chronic small vessel ischemic white matter disease. 4. Mild inflammatory disease of bilateral mastoid air cells and ethmoid air cells. at 1310 Reported and signed by: CHIRAG MEJIA M.D. CC: Guy Marcial MD Technologist: Lamin Felipe [facility] Dt/Tm: 12/08/2020 (1310) by:[email or web address] Printed Date/Time: 12/08/2020 (1314) Name: ELENO GROSSMAN Yoni FRANKLIN [facility] Phys: Guy Marcial MD [address] DOB: 1950 Age: 70 Sex: M [place], [place] [id number] Loc: P.PSCLIEN Exam Date: 12/08/2020 Status: REG REF PH: FAX: PAGE 2 Signed ReportDILANTIN (PHENYTOIN)2020-12-08 06:37:00 Test Item Value Reference Range Interpretation Comments DILANTIN 6.0 mcg/mL 10.0-20.0 L INTERPRETATIVE (PHENYTOIN) (test DATA:Thera peutic range: code = DIL) 10 - 20 mcg/mL Toxic: >20 mcg/mL Plea se refer to Medication Administration Record (MAR) forlast d ose date and time. COMPREHENSIVE METABOLIC [id number] 06:51:00 Test Item Value Reference Range Interpretation Comments SODIUM (test code = 136 mmol/L 136-145 N Please n ote: New NA) Reference Range Sep 2020 POTASSIUM (test 4.3 mmol/L 3.5-5.1 N code = K) CHLORIDE (test code 102 mmol/L 98-107 N Please n ote: New = CL) Reference Range Sep 2020 CARBON DIOXIDE 23 mmol/L 20-31 N Please note: New (test code = CO2) Reference Range Sep 2020 GLUCOSE (test code 92 mg/dL 74-106 N Please no te: New = GLU) Reference Range Sep 2020 BLOOD UREA NITROGEN 12 mg/dL 9-23 N Please n ote: New (test code = BUN) Reference Range Sep 2020 GLOMERULAR >=60 max >60 The estimated FILTRATION RATE estimate glomerular (test code = GFR) filtration rate is computed usingpatient ra ce, age (>18), sex, and serum creatinin e. If anyof the ne eded data elements a re missing the Laboratory cristiano ot compute an estimation of t he glomerular filtration rate . CREATININE (test 1.10 mg/dL 0.70-1.30 N Please note : New code = CREAT) Reference Rang e Sep 2020 TOTAL PROTEIN (test 6.2 g/dL 5.7-8.2 N Please n ote: New code = PROT) Reference Range Sep 2020 ALBUMIN (test code 3.9 g/dL 3.2-4.8 N Please no te: New = ALB) Reference Range Sep 2020 CALCIUM (test code 8.6 mg/dL 8.7-10.4 L Please no te: New = CA) Reference Range Sep 2020 BILIRUBIN TOTAL 0.2 mg/dL 0.3-1.2 L Please note: New (test code = BILT) Reference Range Sep 2020 SGOT/AST (test code 30 U/L <34 N Please n ote: New = AST) Reference Range Sep 2020 SGPT/ALT (test code 47 U/L 10-49 N Please n ote: New = ALT) Reference Range Sep 2020 ALKALINE 161 U/L 46-116 H Please note: Ne w PHOSPHATASE (test Reference Range Feb code = ALKP) 2020 CBC W/AUTO [id number] 06:30:00 Test Item Value Reference Range Interpretation Comments WHITE BLOOD CELL (test code = 10.8 x10 3/uL 4.8-10.8 N WBC) RED BLOOD CELL (test code = 3.16 x10 6/uL 4.70-6.10 L RBC) HEMOGLOBIN (test code = HGB) 9.9 g/dL 14.0-18.0 L HEMATOCRIT (test code = HCT) 30.1 % 42.0-52.0 L MEAN CELL VOLUME (test code = 95.3 fL 80.0-94.0 H MCV) MEAN CELL HGB (test code = MCH) 31.3 pg 27-31 H MEAN CELL HGB CONCENTRATION 32.9 G/DL 33-36.5 L (test code = MCHC) RED CELL DISTRIBUTION WIDTH 14.6 % 12.9-16.9 N (test code = RDW) PLATELET COUNT (test code = 562 x10 3/uL 150-440 H PLT) MEAN PLATELET VOLUME (test code 8.5 fL 8.9-12.4 L = MPV) NEUTROPHIL % (test code = NT%) 51.8 % 42.2-75.2 N LYMPHOCYTE % (test code = LY%) 30.0 % 20.5-51.1 N MONOCYTE % (test code = MO%) 11.2 % 1.7-9.3 H EOSINOPHIL % (test code = EO%) 6.4 % 0.0-7.0 N BASOPHIL % (test code = BA%) 0.4 % 0-2.5 N NEUTROPHIL # (test code = NT#) 5.62 x10 3/uL 1.80-7.70 N LYMPHOCYTE # (test code = LY#) 3.25 x10 3/uL 1.00-4.80 N MONOCYTE # (test code = MO#) 1.21 x10 3/uL 0.00-0.80 H EOSINOPHIL # (test code = EO#) 0.69 x10 3/uL 0.00-0.45 H BASOPHIL # (test code = BA#) 0.04 x10 3/uL 0.0-0.20 N - XR CHEST 1 [id number] 07:58:00 [facility] : 1950 Sex: MPatient Name: ELENO GROSSMAN Unit No: [id number] EXAMS: CPT CODE: [id number] XR CHEST 1 V [id number], SINGLE VIEW DICTATION LOCATION A1 HISTORY: Respiratory failure. A single view of the chest at 4:16 AM was compared to a prior exam from December 01, 2020. FINDINGS: Mild cardiomegaly and central pulmonary vascular prominence are stable. No new infiltrate is seen. No new findings are seen. IMPRESSION: No change from the prior exam. at 0758 Reported and signed by: Kane Early Jr, MD CC: River Issa MD; Guy Marcial MD Technologist: Dana Guillermo Fluoro Time: DAP (Gy m2): Air Kerma (mGy): Trscr Dt/Tm: 12/06/2020 (0758) by:Jian Printed Date/Time: 12/06/2020 (0802) Name: DANICA GROSSMANY Yoni [facility] Phys: River Quintanilla MD [address] : 1950 Age: 70 Sex: [place] [address] Loc: ALISIA Exam Date: 12/06/2020 Status: REG REF PH: FAX: PAGE 1 Signed ReportCOMPREHENSIVE METABOLIC [id number] 07:07:00 Test Item Value Reference Range Interpretation Comments SODIUM (test code = 140 mmol/L 136-145 N Please n ote: New NA) Reference Range Sep 2020 POTASSIUM (test 4.6 mmol/L 3.5-5.1 N code = K) CHLORIDE (test code 105 mmol/L 98-107 N Please n ote: New = CL) Reference Range Sep 2020 CARBON DIOXIDE 26 mmol/L 20-31 N Please note: New (test code = CO2) Reference Range Sep 2020 GLUCOSE (test code 115 mg/dL 74-106 H Please no te: New = GLU) Reference Range Sep 2020 BLOOD UREA NITROGEN 12 mg/dL 9-23 N Please n ote: New (test code = BUN) Reference Range Sep 2020 GLOMERULAR >=60 max >60 The estimated FILTRATION RATE estimate glomerular (test code = GFR) filtration rate is computed usingpatient ra ce, age (>18), sex, and serum creatinin e. If anyof the ne eded data elements a re missing the Laboratory cristiano ot compute an estimation of t he glomerular filtration rate . CREATININE (test 1.00 mg/dL 0.70-1.30 N Please note : New code = CREAT) Reference Rang e Sep 2020 TOTAL PROTEIN (test 6.4 g/dL 5.7-8.2 N Please n ote: New code = PROT) Reference Range Sep 2020 ALBUMIN (test code 4.0 g/dL 3.2-4.8 N Please no te: New = ALB) Reference Range Sep 2020 CALCIUM (test code 8.7 mg/dL 8.7-10.4 N Please no te: New = CA) Reference Range Sep 2020 BILIRUBIN TOTAL 0.2 mg/dL 0.3-1.2 L Please note: New (test code = BILT) Reference Range Sep 2020 SGOT/AST (test code 47 U/L <34 H Please n ote: New = AST) Reference Range Sep 2020 SGPT/ALT (test code 62 U/L 10-49 H Please n ote: New = ALT) Reference Range Sep 2020 ALKALINE 165 U/L 46-116 H Please note: Ne w PHOSPHATASE (test Reference Range Feb code = ALKP) 2020 CBC W/AUTO [id number] 06:56:00 Test Item Value Reference Range Interpretation Comments WHITE BLOOD CELL (test code = 10.0 x10 3/uL 4.8-10.8 N WBC) RED BLOOD CELL (test code = 3.19 x10 6/uL 4.70-6.10 L RBC) HEMOGLOBIN (test code = HGB) 9.9 g/dL 14.0-18.0 L HEMATOCRIT (test code = HCT) 31.1 % 42.0-52.0 L MEAN CELL VOLUME (test code = 97.5 fL 80.0-94.0 H MCV) MEAN CELL HGB (test code = MCH) 31.0 pg 27-31 N MEAN CELL HGB CONCENTRATION 31.8 G/DL 33-36.5 L (test code = MCHC) RED CELL DISTRIBUTION WIDTH 14.6 % 12.9-16.9 N (test code = RDW) PLATELET COUNT (test code = 618 x10 3/uL 150-440 H PLT) MEAN PLATELET VOLUME (test code 8.5 fL 8.9-12.4 L = MPV) NEUTROPHIL % (test code = NT%) 49.9 % 42.2-75.2 N LYMPHOCYTE % (test code = LY%) 34.4 % 20.5-51.1 N MONOCYTE % (test code = MO%) 10.8 % 1.7-9.3 H EOSINOPHIL % (test code = EO%) 4.0 % 0.0-7.0 N BASOPHIL % (test code = BA%) 0.6 % 0-2.5 N NEUTROPHIL # (test code = NT#) 4.98 x10 3/uL 1.80-7.70 N LYMPHOCYTE # (test code = LY#) 3.43 x10 3/uL 1.00-4.80 N MONOCYTE # (test code = MO#) 1.08 x10 3/uL 0.00-0.80 H EOSINOPHIL # (test code = EO#) 0.40 x10 3/uL 0.00-0.45 N BASOPHIL # (test code = BA#) 0.06 x10 3/uL 0.0-0.20 N - CT HEAD/BRAIN W/O [id number] 10:54:00 [facility] : 1950 Sex: MPatient Name: ELENO GROSSMAN Unit No: [id number] EXAMS: CPT CODE: [id number] CT HEAD/BRAIN W/O CONT [id number] EXAM: CT Head without contrast Location: A1 HISTORY: Subdural hematoma, respiratory failure COMPARISON: None available. TECHNIQUE: Multiple transaxial images of the brain were obtained without intravenous contrast. Images were reformatted to create coronal and sagittal reconstructions. Oneor more of the following dose reduction techniques were used: Automated exposure control, adjustmentof the mA and/or kV according to patient size, and/or utilization of iterative reconstruction technique. DLP: 891 mGy-cm. FINDINGS: Postoperative changes include a right frontal lobe parietotemporal craniotomy. There is low attenuating fluid collection overlying the right cerebral convexity and subjacent to the craniotomy flap. Larger collection is noted more anteriorly over the frontal convexity andmeasures up to 9.5 mm. There is mass effect on the adjacent sulci. There is focal loss of izquierdo-whitedifferentiation in the right frontal lobe. There is further low attenuation within subcortical whitematter with sparing of the overlying cortex. There is mass effect on the adjacent sulci of the rightcerebral hemisphere. If prior imaging is available, comparison is recommended. There is mild mass effect on the right lateral ventricle. There is no midline shift. The remaining izquierdo-white differentiation is maintained. There is no evidence for acute major vessel infarct. There is mucosal thickening of the bilateral ethmoid air cells and bilateral maxillary sinuses and right frontal sinus. There is small fluid within the right mastoid air cells. Intraorbital contents are within normal limits. Note is made of bilateral lens replacement. Bones of the calvaria and skull base are intact. IMPRESSION: 1. Postoperative changes include a right frontoparietal temporal craniotomy. There is low attenuating fluid collection below the craniotomy flap and overlying the right cerebral hemisphere which may represent chronic subdural hematoma. Further infected fluid collection is not entirely excluded. There is mass effect on the adjacent sulci and minimal mass effect on the right lateral ventricle. If prior imaging is available, then comparison is recommended. Name: ELENO GROSSMAN JR [facility] Phys: Guy Villar MD [address] DOB: 1950 Age: 70 Sex: M [place] [id number] Loc: P.PSCLIEN Exam Date: 12/02/2020 Status: REG REF PH: FAX: PAGE 1 Signed Report ( CONTINUED) Patient Name: ELENO GROSSMAN JR Unit No: [id number] EXAMS: CPT CODE: [id number] CT HEAD/BRAIN W/O CONT 85091 <Continued> 2. Small low attenuating focus in the right frontal cortex mayrepresent subacute ischemic infarct. Larger areas of low attenuation in the subcortical white matterin the right frontal lobe may represent edema either from underlying mass lesion or cerebritis. Please correlate with patient's surgical history. at 1054 Reported and signed by: CHIRAG MEJIA M.D. CC: Guy Marcial MD Technologist: Gregorio Handley CTDI: 55.71 DLP: 891 Trscr Dt/Tm: 12/02/2020 (1054) by:[email or web address] Printed Date/Time: 12/02/2020 (1057) Name: ELENO GROSSMAN JR [facility] Phys: Guy Villar MD [address] DOB: 1950 Age: 70 Sex: M [place], [place] [address] Loc: P.PSCLIEN Exam Date: 12/02/2020 Status: REG REF PH: FAX: PAGE 2 Signed ReportCOMPREHENSIVE METABOLIC [id number] 07:02:00 Test Item Value Reference Range Interpretation Comments SODIUM (test code = 138 mmol/L 136-145 N Please n ote: New NA) Reference Range Sep 2020 POTASSIUM (test 4.8 mmol/L 3.5-5.1 N code = K) CHLORIDE (test code 105 mmol/L 98-107 N Please n ote: New = CL) Reference Range Sep 2020 CARBON DIOXIDE 26 mmol/L 20-31 N Please note: New (test code = CO2) Reference Range Sep 2020 GLUCOSE (test code 115 mg/dL 74-106 H Please no te: New = GLU) Reference Range Sep 2020 BLOOD UREA NITROGEN 15 mg/dL 9-23 N Please n ote: New (test code = BUN) Reference Range Sep 2020 GLOMERULAR >=60 max >60 The estimated FILTRATION RATE estimate glomerular (test code = GFR) filtration rate is computed usingpatient ra ce, age (>18), sex, and serum creatinin e. If anyof the ne eded data elements a re missing the Laboratory cristiano ot compute an estimation of t he glomerular filtration rate . CREATININE (test 0.80 mg/dL 0.70-1.30 N Please note : New code = CREAT) Reference Rang e Sep 2020 TOTAL PROTEIN (test 6.3 g/dL 5.7-8.2 N Please n ote: New code = PROT) Reference Range Sep 2020 ALBUMIN (test code 4.0 g/dL 3.2-4.8 N Please no te: New = ALB) Reference Range Sep 2020 CALCIUM (test code 8.6 mg/dL 8.7-10.4 L Please no te: New = CA) Reference Range Sep 2020 BILIRUBIN TOTAL 0.2 mg/dL 0.3-1.2 L Please note: New (test code = BILT) Reference Range Sep 2020 SGOT/AST (test code 50 U/L <34 H Please n ote: New = AST) Reference Range Sep 2020 SGPT/ALT (test code 70 U/L 10-49 H Please n ote: New = ALT) Reference Range Sep 2020 ALKALINE 169 U/L 46-116 H Please note: Ne w PHOSPHATASE (test Reference Range Feb code = ALKP) 2020 [id number] 07:02:00 Test Item Value Reference Range Interpretation Comments PHOSPHOROUS (test code 3.9 mg/dL 2.4-5.1 N Pleas e note: New = PHOS) Reference Range Sep 2020 [id number] 07:02:00 Test Item Value Reference Range Interpretation Comments MAGNESIUM (test code = 2.1 mg/dL 1.6-2.6 N Pleas e note: New MAG) Reference Range Sep 2020 CBC W/AUTO [id number] 06:33:00 Test Item Value Reference Range Interpretation Comments WHITE BLOOD CELL (test code = 8.3 x10 3/uL 4.8-10.8 N WBC) RED BLOOD CELL (test code = 3.03 x10 6/uL 4.70-6.10 L RBC) HEMOGLOBIN (test code = HGB) 9.4 g/dL 14.0-18.0 L HEMATOCRIT (test code = HCT) 29.1 % 42.0-52.0 L MEAN CELL VOLUME (test code = 96.0 fL 80.0-94.0 H MCV) MEAN CELL HGB (test code = MCH) 31.0 pg 27-31 N MEAN CELL HGB CONCENTRATION 32.3 G/DL 33-36.5 L (test code = MCHC) RED CELL DISTRIBUTION WIDTH 14.6 % 12.9-16.9 N (test code = RDW) PLATELET COUNT (test code = 616 x10 3/uL 150-440 H PLT) MEAN PLATELET VOLUME (test code 8.6 fL 8.9-12.4 L = MPV) NEUTROPHIL % (test code = NT%) 47.3 % 42.2-75.2 N LYMPHOCYTE % (test code = LY%) 36.7 % 20.5-51.1 N MONOCYTE % (test code = MO%) 10.6 % 1.7-9.3 H EOSINOPHIL % (test code = EO%) 4.5 % 0.0-7.0 N BASOPHIL % (test code = BA%) 0.7 % 0-2.5 N NEUTROPHIL # (test code = NT#) 3.92 x10 3/uL 1.80-7.70 N LYMPHOCYTE # (test code = LY#) 3.05 x10 3/uL 1.00-4.80 N MONOCYTE # (test code = MO#) 0.88 x10 3/uL 0.00-0.80 H EOSINOPHIL # (test code = EO#) 0.37 x10 3/uL 0.00-0.45 N BASOPHIL # (test code = BA#) 0.06 x10 3/uL 0.0-0.20 N - XR CHEST 1 [id number] 07:43:00 [facility] 1950 Sex: MPatient Name: ELENO GROSSMAN Unit No: [id number] EXAMS: CPT CODE: [id number] XR CHEST 1 V 91480 Chest one view portable 12/01/2020 7:43 AM CLINICAL INDICATION: Respiratory failure COMPARISON: 11/22/2020 LOCATION: W1 IMPRESSION: There has been no significant interval change when compared to the previous examination. Cardiomediastinal contours are stable. Central pulmonary vasculature congestion and bilateral interstitial opacities are unchanged. at 0743 Reported and signed by: ASHLEY CAMPBELL M.D. CC: River Issa MD; Guy Marcial MD Technologist: Dana Guillermo Fluoro Time: DAP (Gy m2): Air Kerma (mGy): Trscr Dt/Tm: 12/01/2020 (0743) by:[email or web address] Printed Date/Time: 12/01/2020 (0746) Name: DANICA GROSSMANY [facility] Phys: River Quintanilla MD [address] : 1950 Age: 70 Sex: M [place] [address] Loc: ALISIA Exam Date: 12/01/2020 Status: REG REF PH: FAX: PAGE 1Signed ReportRENAL FUNCTION [id number] 07:48:00 Test Item Value Reference Range Interpretation Comments SODIUM (test code = 138 mmol/L 136-145 N Please n ote: New NA) Reference Range Sep 2020 POTASSIUM (test 4.5 mmol/L 3.5-5.1 N code = K) CHLORIDE (test code 105 mmol/L 98-107 N Please n ote: New = CL) Reference Range Sep 2020 CARBON DIOXIDE 26 mmol/L 20-31 N Please note: New (test code = CO2) Reference Range Sep 2020 GLUCOSE (test code 118 mg/dL 74-106 H Please no te: New = GLU) Reference Range Sep 2020 BLOOD UREA NITROGEN 15 mg/dL 9-23 N Please n ote: New (test code = BUN) Reference Range Sep 2020 GLOMERULAR >=60 max >60 The estimated FILTRATION RATE estimate glomerular (test code = GFR) filtration rate is computed usingpatient ra ce, age (>18), sex, and serum creatinin e. If anyof the ne eded data elements a re missing the Laboratory cristiano ot compute an estimation of t he glomerular filtration rate . CREATININE (test 0.80 mg/dL 0.70-1.30 N Please note : New code = CREAT) Reference Rang e Sep 2020 ALBUMIN (test code 3.9 g/dL 3.2-4.8 N Please no te: New = ALB) Reference Range Sep 2020 CALCIUM (test code 8.1 mg/dL 8.7-10.4 L Please no te: New = CA) Reference Range Sep 2020 PHOSPHOROUS (test 3.8 mg/dL 2.4-5.1 N Please not e: New code = PHOS) Reference Range Sep 2020 COMPREHENSIVE METABOLIC [id number] 07:19:00 Test Item Value Reference Range Interpretation Comments SODIUM (test code = 138 mmol/L 136-145 N Please n ote: New NA) Reference Range Sep 2020 POTASSIUM (test 5.2 mmol/L 3.5-5.1 H code = K) CHLORIDE (test code 107 mmol/L 98-107 N Please n ote: New = CL) Reference Range Sep 2020 CARBON DIOXIDE 25 mmol/L 20-31 N Please note: New (test code = CO2) Reference Range Sep 2020 GLUCOSE (test code 119 mg/dL 74-106 H Please no te: New = GLU) Reference Range Sep 2020 BLOOD UREA NITROGEN 17 mg/dL 9-23 N Please n ote: New (test code = BUN) Reference Range Sep 2020 GLOMERULAR >=60 max >60 The estimated FILTRATION RATE estimate glomerular (test code = GFR) filtration rate is computed usingpatient ra ce, age (>18), sex, and serum creatinin e. If anyof the ne eded data elements a re missing the Laboratory cristiano ot compute an estimation of t he glomerular filtration rate . CREATININE (test 0.90 mg/dL 0.70-1.30 N Please note : New code = CREAT) Reference Rang e Sep 2020 TOTAL PROTEIN (test 6.5 g/dL 5.7-8.2 N Please n ote: New code = PROT) Reference Range Sep 2020 ALBUMIN (test code 3.9 g/dL 3.2-4.8 N Please no te: New = ALB) Reference Range Sep 2020 CALCIUM (test code 8.8 mg/dL 8.7-10.4 N Please no te: New = CA) Reference Range Sep 2020 BILIRUBIN TOTAL 0.2 mg/dL 0.3-1.2 L Please note: New (test code = BILT) Reference Range Sep 2020 SGOT/AST (test code 61 U/L <34 H Please n ote: New = AST) Reference Range Sep 2020 SGPT/ALT (test code 80 U/L 10-49 H Please n ote: New = ALT) Reference Range Sep 2020 ALKALINE 175 U/L 46-116 H Please note: Ne w PHOSPHATASE (test Reference Range Feb code = ALKP) 2020 CBC W/AUTO [id number] 06:57:00 Test Item Value Reference Range Interpretation Comments WHITE BLOOD CELL (test code = 12.7 x10 3/uL 4.8-10.8 H WBC) RED BLOOD CELL (test code = 3.01 x10 6/uL 4.70-6.10 L RBC) HEMOGLOBIN (test code = HGB) 9.5 g/dL 14.0-18.0 L HEMATOCRIT (test code = HCT) 28.9 % 42.0-52.0 L MEAN CELL VOLUME (test code = 96.0 fL 80.0-94.0 H MCV) MEAN CELL HGB (test code = MCH) 31.6 pg 27-31 H MEAN CELL HGB CONCENTRATION 32.9 G/DL 33-36.5 L (test code = MCHC) RED CELL DISTRIBUTION WIDTH 14.6 % 12.9-16.9 N (test code = RDW) PLATELET COUNT (test code = 561 x10 3/uL 150-440 H PLT) MEAN PLATELET VOLUME (test code 9.0 fL 8.9-12.4 N = MPV) NEUTROPHIL % (test code = NT%) 57.8 % 42.2-75.2 N LYMPHOCYTE % (test code = LY%) 27.9 % 20.5-51.1 N MONOCYTE % (test code = MO%) 9.3 % 1.7-9.3 N EOSINOPHIL % (test code = EO%) 3.9 % 0.0-7.0 N BASOPHIL % (test code = BA%) 0.4 % 0-2.5 N NEUTROPHIL # (test code = NT#) 7.36 x10 3/uL 1.80-7.70 N LYMPHOCYTE # (test code = LY#) 3.56 x10 3/uL 1.00-4.80 N MONOCYTE # (test code = MO#) 1.18 x10 3/uL 0.00-0.80 H EOSINOPHIL # (test code = EO#) 0.50 x10 3/uL 0.00-0.45 H BASOPHIL # (test code = BA#) 0.05 x10 3/uL 0.0-0.20 N - CT ABD PELVIS W/O [id number] 20:08:00 [facility]OH[facility]DANICARenetta Vallejo : 1950 Sex: MPatient Name: ELENO GROSSMAN JR Unit No: [id number] EXAMS: CPT CODE: [id number] CT ABD PELVIS W/O CONT 11001 LOCATION: H43 EXAM: - CT ABD PELVIS W/O CONT HISTORY: abd ultrasound TECHNIQUE: Axial imaging of the abdomen and pelvis from the lung base to the pubic symphysis without administration of intravenous contrast. Sagittal and coronal reconstructions. CT scan performed using appropriate/available dose optimization/reduction techniques. COMPARISON: Concomitant CT chest FINDINGS: Lung base:Evaluated on CT chest exam. Please refer to the report CT chest exam. Assessment of abdominal viscera limited in the absence of intravenous contrast. Liver/spleen: Normal size and contour. Scattered hepatic and splenic calcified granulomas. Biliary system: The gallbladder is unremarkable. No biliary duct di latation. Pancreas: Unremarkable. Adrenal glands: Normal. Kidneys: No radiopaque nephrolithiasis, hydronephrosis or significant perinephric fluid. Vascular: Mild atherosclerosis normal caliber abdominal aorta. Lymph nodes: No abdominal lymphadenopathy. Pelvic structures: The urinary bladder is unremarkably distended. No pelvic lymphadenopathy or free fluid. The prostate gland is nonenlarged. Fat-containing right inguinal hernia is present. Gastrointestinal tract:There is localized edema change within the mesenteric fat associated with the presence of nonpathologically enlarged mesenteric lymph nodes, consistent with mesenteric panniculitis. No abnormal bowel dilatation. No pathologically dilated appendix or focal inflammatory changes in the right lower quadrant. No focal fluid collections, ascites or evidence of pneumoperitoneum. Name: ELENO GROSSMAN JR [facility] Phys: Ismael Whiting Jr, MD [address] : 1950 Age: 70 Sex: [place] [address] : P.PSCLIEN Exam Date: 11/26/2020 Status: REG REF PH: FAX: PAGE 1 Signed Report (CONTINUED) Patient Name: ELENO GROSSMAN JR Unit No: [id number] EXAMS: CPT CODE: [id number] CT ABD PELVIS W/O CONT 17450 <Continued> Bones and soft tissues: Bilateral spondylolysis at L5-S1 associated with grade1. Nodularities along the ventral abdominal wall consistent with sequela of subcutaneous reduction. IMPRESSION: 1. 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 2. Additional chronic findings above. at 2007 Reported and signed by: ALICIA BARTON M.D. CC: Ismael Julio Jr, MD; Guy Marcial MD Technologist: PHILIP Griffin(Blanca)(CT) CTDI: 28.37 DLP: 1469.0 Trscr Dt/Tm: 11/26/2020 (2007) by:[email or web address] Printed Date/Time: 11/26/2020 (2011) Name: ELENO GROSSMAN JR [facility] Phys: Ismael Whiting Jr, MD [address]OB: 1950 Age: 70 Sex: [place] [address] Loc: Andrea.PSCLIEN Exam Date: 11/26/2020 Status: REG REF PH: FAX: PAGE 2 Signed Report- CT CHEST W/O [id number] 19:33:00 [facility]ICA GROSSMANRenetta Vallejo : 1950 Sex: MPatient Name: ELENO GROSSMAN JR Unit No: [id number] EXAMS: CPT CODE: [id number] CT CHEST W/O CONTRAST 40464 LOCATION: H43 EXAM: - CT CHEST W/O CONTRAST HISTORY: pneumonia TECHNIQUE: Axial imaging ofthe chest from the base of the neck through the upper abdomen without the administration of intravenous contrast. Sagittal and coronal reconstructions. CT scan performed using appropriate/available dose optimization/reduction techniques. COMPARISON:None. FINDINGS: The visualized thyroid gland is unremarkable. No mediastinal, axillary or supraclavicular lymphadenopathy. Mild atherosclerosis normal caliber thoracic aorta. Coronary artery calcification is present. The heart size is normal. No pericardial effusion. There is no pulmonary artery dilatation. No pleural effusions. Lungs are adequately inflated. Mild patchy groundglass density changes are present in the bilateral posterior lower lobe which may represent developing infiltrate. There is no confluent consolidation. Scattered nodular foci measuring up to 7 mm are present. These may represent an artifact due to respiratory motion. The trachea and central bronchi are patent. There is no pneumothorax. Evaluation the visualized portion of the upper abdomen a few scattered hepatic and splenic calcified granulomas are noted.. IMPRESSION: Mild patchy groundglass density changes are present in the bilateral lower lobe, which may represent developing infiltrate. A few scattered nodular foci measuring up to 6 mm are present. There are appearancemay result present artifact related to respiratory motion. However, follow-up is recommended to exclude the presence of a true pulmonary nodule. In a low or high risk patient, recommend CT follow up at3-6 months, then consider follow up at 18-24 months. at 1933 Reported and signed by: ALICIA BARTON M.D. Name: ELENO GROSSMAN JR [facility] Phys: Ismael Whiting Jr, MD [address] : 1950 Age: 70 Sex: [place] [address] Loc: P.PSCLIEN Exam Date: 11/26/2020 Status: REG REF PH: FAX: PAGE 1 Signed Report (CONTINUED) Patient Name: ELENO GROSSMAN JR Unit No: [id number] EXAMS: CPT CODE: [id number] CT CHEST W/O CONTRAST 02596 <Continued> CC: Ismael Julio Jr, MD; Guy Marcial MD Technologist: PHILIP Griffin(Blanca)(CT) CTDI: 25.36 DLP: 839.4 Trscr Dt/Tm: 11/26/2020 (1932) by:[email or web address] Printed Date/Time: 11/26/2020 (1935) Name: ELENO GROSSMAN JR [facility] Phys: Ismael Whiting Jr, MD [address] : 1950 Age: 70 Sex: [place] [address] Loc: ALISIA Exam Date: 11/26/2020 Status: REG REF PH: FAX: PAGE 2 Signed ReportAB HEPATITIS [id number] 08:04:00 Test Item Value Reference Range Interpretation Comments AB HEPATITIS C (test code = Nonreactive Nonreactive HCVAB) - US ELASTO EACH [id number] 15:05:00 [facility] : 1950 Sex: MPatient Name: ELENO GROSSMAN Unit No: [id number] EXAMS: CPT CODE: [id number] US ELASTO EACH ORG [id number] EXAM: US ELASTOGRAPHY LOCATION: A1 INDICATION: Chronic liver disease ADDITIONAL INFORMATION: None. COMPARISON: None. TECHNIQUE: 8 elastography samples were obtained from the liver. FINDINGS: Evaluation was limited due to patient body habitus and inability to cooperate. Average liver stiffness is 17.66 kPa IQR is 6.8 kPa. IQR/Median is 38.5 %. IMPRESSION: Limited study. Average liver stiffnesssuggests Cirrhosis (Metavir Score F4; >11.9 kPa). However, IQR/Median is greater than 30% which suggests data set may not be reliable. at 1505 Reported and signed by: SARI MCDONALD M.D. CC: River Issa MD; Guy Marcial MD Technologist: Tai Ritchie Probe: Trscr Dt/Tm: 11/24/2020 (7124) by:[email or web address] Printed Date/Time: 11/24/2020 (2272) Name: JOHANNAELENO Yoni FRANKLIN [facility] Phys: River Quintanilla MD [address] : 1950 Age: 70 Sex: [place] [address] Loc: PRahulPSCLIENExam Date: 11/24/2020 Status: REG REF PH: FAX: PAGE 1 Signed [id number] - GLYCOSYLATED [id number] 07:42:00 Test Item Value Reference Range Interpretation Comments GLYCOSYLATED HEMOGLOBIN 5.5 % <5.7 N Diab etic </= (HA1C) (test code = 6.5%Pred iabetes GLYHGB) 5.7-6.4%Normal < 5.7% BASIC METABOLIC [id number] 07:04:00 Test Item Value Reference Range Interpretation Comments SODIUM (test code 139 mmol/L 136-145 N Please not e: New = NA) Reference Range Sep 2020 POTASSIUM (test 4.6 mmol/L 3.5-5.1 N code = K) CHLORIDE (test 105 mmol/L 98-107 N Please note: New code = CL) Reference Range Sep 2020 CARBON DIOXIDE 25 mmol/L 20-31 N Please note: New (test code = CO2) Reference Range Sep 2020 GLUCOSE (test code 112 mg/dL 74-106 H Please no te: New = GLU) Reference Range Sep 2020 BLOOD UREA 27 mg/dL 9-23 H Please note: Ne w NITROGEN (test Reference Ran ge Feb code = BUN) 2020 GLOMERULAR >=60 max >60 The estimated FILTRATION RATE estimate glomerular (test code = GFR) filtration rate is computed usingpatient ra ce, age (>18), sex, and serum creatinin e. If anyof the neede d data elements a re missing the Laboratory cristiano ot compute an estimation of t he glomerular filtration rate . CREATININE (test 0.90 mg/dL 0.70-1.30 N Please note : New code = CREAT) Reference Rang e Sep 2020 CALCIUM (test code 8.1 mg/dL 8.7-10.4 L Please no te: New = CA) Reference Range Sep 2020 COMPREHENSIVE METABOLIC [id number] 07:04:00 Test Item Value Reference Range Interpretation Comments TOTAL PROTEIN (test 6.2 g/dL 5.7-8.2 N Please n ote: New code = PROT) Reference Range Sep 2020 ALBUMIN (test code = 3.7 g/dL 3.2-4.8 N Please note: New ALB) Reference Range Sep 2020 BILIRUBIN TOTAL (test 0.3 mg/dL 0.3-1.2 N Please note: New code = BILT) Reference Range Sep 2020 SGOT/AST (test code = 61 U/L <34 H Please note: New AST) Reference Range Sep 2020 SGPT/ALT (test code = 66 U/L 10-49 H Please note: New ALT) Reference Range Sep 2020 ALKALINE PHOSPHATASE 174 U/L 46-116 H Please note: New (test code = ALKP) Reference Range Sep 2020 BASIC METABOLIC [id number] 06:34:00 Test Item Value Reference Range Interpretation Comments SODIUM (test code 139 mmol/L 136-145 N Please not e: New = NA) Reference Range Sep 2020 POTASSIUM (test 4.6 mmol/L 3.5-5.1 N code = K) CHLORIDE (test 105 mmol/L 98-107 N Please note: New code = CL) Reference Range Sep 2020 CARBON DIOXIDE 25 mmol/L 20-31 N Please note: New (test code = CO2) Reference Range Sep 2020 GLUCOSE (test code mg/dL 74-106 = GLU) BLOOD UREA 27 mg/dL 9-23 H Please note: Ne w NITROGEN (test Reference Ran ge Feb code = BUN) 2020 GLOMERULAR >=60 max >60 The estimated FILTRATION RATE estimate glomerular (test code = GFR) filtration rate is computed usingpatient ra ce, age (>18), sex, and serum creatinin e. If anyof the neede d data elements a re missing the Laboratory cristiano ot compute an estimation of t he glomerular filtration rate . CREATININE (test 0.90 mg/dL 0.70-1.30 N Please note : New code = CREAT) Reference Rang e Sep 2020 CALCIUM (test code 8.1 mg/dL 8.7-10.4 L Please no te: New = CA) Reference Range Sep 2020 COMPREHENSIVE METABOLIC [id number] 06:34:00 Test Item Value Reference Range Interpretation Comments TOTAL PROTEIN (test 6.2 g/dL 5.7-8.2 N Please n ote: New code = PROT) Reference Range Sep 2020 ALBUMIN (test code = 3.7 g/dL 3.2-4.8 N Please note: New ALB) Reference Range Sep 2020 BILIRUBIN TOTAL (test 0.3 mg/dL 0.3-1.2 N Please note: New code = BILT) Reference Range Sep 2020 SGOT/AST (test code = 61 U/L <34 H Please note: New AST) Reference Range Sep 2020 SGPT/ALT (test code = 66 U/L 10-49 H Please note: New ALT) Reference Range Sep 2020 ALKALINE PHOSPHATASE 174 U/L 46-116 H Please note: New (test code = ALKP) Reference Range Sep 2020 CBC W/AUTO [id number] 06:02:00 Test Item Value Reference Range Interpretation Comments WHITE BLOOD CELL (test code = 14.9 x10 3/uL 4.8-10.8 H WBC) RED BLOOD CELL (test code = 3.04 x10 6/uL 4.70-6.10 L RBC) HEMOGLOBIN (test code = HGB) 9.7 g/dL 14.0-18.0 L HEMATOCRIT (test code = HCT) 29.1 % 42.0-52.0 L MEAN CELL VOLUME (test code = 95.7 fL 80.0-94.0 H MCV) MEAN CELL HGB (test code = MCH) 31.9 pg 27-31 H MEAN CELL HGB CONCENTRATION 33.3 G/DL 33-36.5 N (test code = MCHC) RED CELL DISTRIBUTION WIDTH 14.1 % 12.9-16.9 N (test code = RDW) PLATELET COUNT (test code = 431 x10 3/uL 150-440 N PLT) MEAN PLATELET VOLUME (test code 8.5 fL 8.9-12.4 L = MPV) NEUTROPHIL % (test code = NT%) 62.3 % 42.2-75.2 N LYMPHOCYTE % (test code = LY%) 23.9 % 20.5-51.1 N MONOCYTE % (test code = MO%) 8.5 % 1.7-9.3 N EOSINOPHIL % (test code = EO%) 3.4 % 0.0-7.0 N BASOPHIL % (test code = BA%) 0.4 % 0-2.5 N NEUTROPHIL # (test code = NT#) 9.25 x10 3/uL 1.80-7.70 H LYMPHOCYTE # (test code = LY#) 3.56 x10 3/uL 1.00-4.80 N MONOCYTE # (test code = MO#) 1.26 x10 3/uL 0.00-0.80 H EOSINOPHIL # (test code = EO#) 0.51 x10 3/uL 0.00-0.45 H BASOPHIL # (test code = BA#) 0.06 x10 3/uL 0.0-0.20 N LIVER FUNCTION [id number] 22:06:00 Test Item Value Reference Range Interpretation Comments TOTAL PROTEIN (test 7.0 g/dL 5.7-8.2 N Please n ote: New code = PROT) Reference Range Sep 2020 ALBUMIN (test code = 3.9 g/dL 3.2-4.8 N Please note: New ALB) Reference Range Sep 2020 BILIRUBIN TOTAL (test 0.4 mg/dL 0.3-1.2 N Please note: New code = BILT) Reference Range Sep 2020 BILIRUBIN DIRECT (test 0.2 mg/dL <0.3 N Pleas e note: New code = BILD) Reference Range Sep 2020 SGOT/AST (test code = 65 U/L <34 H Please note: New AST) Reference Range Sep 2020 SGPT/ALT (test code = 68 U/L 10-49 H Please note: New ALT) Reference Range Sep 2020 ALKALINE PHOSPHATASE 174 U/L 46-116 H Please note: New (test code = ALKP) Reference Range Sep 2020 T4 [id number] 22:06:00 Test Item Value Reference Range Interpretation Comments T4 FREE (test code 0.93 ng/dL 0.89-1.76 N Please no te: New = T4F) Reference Range Sep 2020 LIVER FUNCTION [id number] 20:58:00 Test Item Value Reference Range Interpretation Comments TOTAL PROTEIN (test 7.0 g/dL 5.7-8.2 N Please n ote: New code = PROT) Reference Range Sep 2020 ALBUMIN (test code = 3.9 g/dL 3.2-4.8 N Please note: New ALB) Reference Range Sep 2020 BILIRUBIN TOTAL (test 0.4 mg/dL 0.3-1.2 N Please note: New code = BILT) Reference Range Sep 2020 BILIRUBIN DIRECT (test 0.2 mg/dL <0.3 N Pleas e note: New code = BILD) Reference Range Sep 2020 SGOT/AST (test code = 65 U/L <34 H Please note: New AST) Reference Range Sep 2020 SGPT/ALT (test code = 68 U/L 10-49 H Please note: New ALT) Reference Range Sep 2020 ALKALINE PHOSPHATASE 174 U/L 46-116 H Please note: New (test code = ALKP) Reference Range Sep 2020 T4 [id number] 20:58:00 Test Item Value Reference Range Interpretation Comments T4 FREE (test code = T4F) ng/dL 0.89-1.76 [id number] 20:58:00 Test Item Value Reference Range Interpretation Comments AMMONIA (test code = AMM) 45 mcmol/L 11-32 H DILANTIN (PHENYTOIN)2020-11-23 20:52:00 Test Item Value Reference Range Interpretation Comments DILANTIN 11.0 mcg/mL 10.0-20.0 N INTERPRETATIVE (PHENYTOIN) (test DATA:Thera peutic range: code = DIL) 10 - 20 mcg/mL Toxic: >20 mcg/mL Plea se refer to Medication Administration Record (MAR) forlast d ose date and time. COMPREHENSIVE METABOLIC [id number] 08:15:00 Test Item Value Reference Range Interpretation Comments SODIUM (test code = 138 mmol/L 136-145 N Please n ote: New NA) Reference Range Sep 2020 POTASSIUM (test 4.6 mmol/L 3.5-5.1 N code = K) CHLORIDE (test code 107 mmol/L 98-107 N Please n ote: New = CL) Reference Range Sep 2020 CARBON DIOXIDE 21 mmol/L 20-31 N Please note: New (test code = CO2) Reference Range Sep 2020 GLUCOSE (test code 108 mg/dL 74-106 H Please no te: New = GLU) Reference Range Sep 2020 BLOOD UREA NITROGEN 25 mg/dL 9-23 H Please n ote: New (test code = BUN) Reference Range Sep 2020 GLOMERULAR >=60 max >60 The estimated FILTRATION RATE estimate glomerular (test code = GFR) filtration rate is computed usingpatient ra ce, age (>18), sex, and serum creatinin e. If anyof the ne eded data elements a re missing the Laboratory cristiano ot compute an estimation of t he glomerular filtration rate . CREATININE (test 0.80 mg/dL 0.70-1.30 N Please note : New code = CREAT) Reference Rang e Sep 2020 TOTAL PROTEIN (test 5.7 g/dL 5.7-8.2 N Please n ote: New code = PROT) Reference Range Sep 2020 ALBUMIN (test code 3.6 g/dL 3.2-4.8 N Please no te: New = ALB) Reference Range Sep 2020 CALCIUM (test code 7.8 mg/dL 8.7-10.4 L Please no te: New = CA) Reference Range Sep 2020 BILIRUBIN TOTAL 0.3 mg/dL 0.3-1.2 N Please note: New (test code = BILT) Reference Range Sep 2020 SGOT/AST (test code 48 U/L <34 H Please n ote: New = AST) Reference Range Sep 2020 SGPT/ALT (test code 58 U/L 10-49 H Please n ote: New = ALT) Reference Range Sep 2020 ALKALINE 160 U/L 46-116 H Please note: Ne w PHOSPHATASE (test Reference Range Feb code = ALKP) 2020 [id number] 08:15:00 Test Item Value Reference Range Interpretation Comments PHOSPHOROUS (test code 3.1 mg/dL 2.4-5.1 N Pleas e note: New = PHOS) Reference Range Sep 2020 [id number] 08:15:00 Test Item Value Reference Range Interpretation Comments MAGNESIUM (test code = 2.1 mg/dL 1.6-2.6 N Pleas e note: New MAG) Reference Range Sep 2020 PROTHROMBIN [id number] 07:56:00 Test Item Value Reference Range Interpretation Comments PROTHROMBIN TIME 13.1 SECONDS 10.3-12.9 H PATIENT (test code = PTP) INTERNATIONAL 1.15 INR UNIT 0.9-1.11 H The INR is us eful only NORMAL RATIO (test for monit oring code = INR) anticoagulant therapy.It may be unreliable in t he initial phase o f antigoagulation and in unstable patien ts. Indication for Anticoagulation Recommended INR 1. Prevention of v enous thomboembolism 2.0-3.0in high- risk patients; treat ment of venousthrombosi s and pulmonary embol ism aftera course o f heparin; preven tion of systemicembolis m in a variety of cond itions, including atria l fibrillation an d prothetic tissu e heart valves, 2. Pros thetic mechanical hear t valves; 2.5-3.5recurren t systemic emboli sm. THROMBOPLASTIN TIME [id number] 07:56:00 Test Item Value Reference Range Interpretation Comments THROMBOPLASTIN TIME 29.1 SECONDS 23.8-34.8 N INTERPRE TATIVE PARTIAL (test code = DATA: erapeut PTT) range: Unfractionated heparin:55 - 80 seconds Argatroban:1.5 to 3 times the basel ine PTT CBC W/AUTO [id number] 07:53:00 Test Item Value Reference Range Interpretation Comments WHITE BLOOD CELL (test code = 17.0 x10 3/uL 4.8-10.8 H WBC) RED BLOOD CELL (test code = 2.86 x10 6/uL 4.70-6.10 L RBC) HEMOGLOBIN (test code = HGB) 9.0 g/dL 14.0-18.0 L HEMATOCRIT (test code = HCT) 27.5 % 42.0-52.0 L MEAN CELL VOLUME (test code = 96.2 fL 80.0-94.0 H MCV) MEAN CELL HGB (test code = 31.5 pg 27-31 H MCH) MEAN CELL HGB CONCENTRATION 32.7 G/DL 33-36.5 L (test code = MCHC) RED CELL DISTRIBUTION WIDTH 14.1 % 12.9-16.9 N (test code = RDW) PLATELET COUNT (test code = 446 x10 3/uL 150-440 H PLT) MEAN PLATELET VOLUME (test 8.9 fL 8.9-12.4 N code = MPV) NEUTROPHIL % (test code = NT%) 62.6 % 42.2-75.2 N LYMPHOCYTE % (test code = LY%) 24.4 % 20.5-51.1 N MONOCYTE % (test code = MO%) 8.2 % 1.7-9.3 N EOSINOPHIL % (test code = EO%) 2.9 % 0.0-7.0 N BASOPHIL % (test code = BA%) 0.4 % 0-2.5 N NEUTROPHIL # (test code = NT#) 10.67 x10 3/uL 1.80-7.70 H LYMPHOCYTE # (test code = LY#) 4.16 x10 3/uL 1.00-4.80 N MONOCYTE # (test code = MO#) 1.40 x10 3/uL 0.00-0.80 H EOSINOPHIL # (test code = EO#) 0.50 x10 3/uL 0.00-0.45 H BASOPHIL # (test code = BA#) 0.06 x10 3/uL 0.0-0.20 N - XR CHEST 1 [id number] 03:28:00 [facility] : 1950 Sex: MPatient Name: ELENO GROSSMAN Unit No: [id number] EXAMS: CPT CODE: [id number] XR CHEST 1 V [id number] EXAM: - XR CHEST 1 V HISTORY: Respiratory failure COMPARISON: None FINDINGS: Patchy retrocardiac airspace opacities. No pleural effusion or pneumothorax. The cardiac silhouette is within normal limits. No acute osseous abnormalities. IMPRESSION: Retrocardiac atelectasis, pulmonary edema and/or pneumonia. at 0328 Reported and signed by:RIOS PA M.D. CC: Guy Marcial MD Technologist: Sue Donato Time: DAP (Gy m2): Air Kerma (mGy): Trscr Dt/Tm: 11/23/2020 (032) by:[email or web address] Printed Date/Time: 11/23/2020 (033) Name: JOHANNAELENO JR [facility] Phys: CLARISSA. - Guy Marcial MD [address] : 1950 Age: 70 Sex: M [place] [address] Loc: PJOSEPH Exam Date: 11/22/2020 Status: REG REF PH: FAX: PAGE 1 Signed Report Notes Date/Time Note Provider Source 2021-01-07 11:45:00-00:00 [id number] [facility] [address] [place] [address] PATIENT NAME: DANICA GROSSMANY Yoni FRANKLIN ADMIT DATE: ACCOUNT NO: [id number] ROOM NO: [facility] AGE: 70 REPORT TYPE: DISCHARGE SUMMARY SEX: M ADMITTING PHYSICIAN:Guy Marcial MD ATTENDING PHYSICIAN:Guy Marcial MD ADMISSION DATE: 11/22/2020 DISCHARGE DATE: 12/20/2020 FINAL DIAGNOSES: 1. Acute hypoxemic respiratory failure. 2. Status post fall. 3. Subdural hematoma. 4. Diabetes mellitus type 2. 5. Hypertension. 6. Hyperlipidemia. 7. Obesity. MEDICATIONS AT DISCHARGE: Per OCT. DISPOSITION: To home with home nursing. CONDITION ON DISCHARGE: Stable. LEVEL OF CARE: Full code. DIET: Regular. ACTIVITY: As tolerated. CONSULTANTS: 1. Dr. Issa. 2. Dr. Julio. 3. Dr. Mcmanus. 4. Dr. Thompson. PROCEDURE: None. COMPLICATIONS: None. INSTRUCTIONS: Given to the patient and stressed the importance of compliance with medication and outpatient followup. COURSE OF HOSPITALIZATION: The patient was admit temi from [facility] after a fall, subdural hematoma. The patient was seen by neurology team. Overall condition improved. The patient remains on BiPAP at nighttime. Infectious disease consultation with Dr. Sumanth grider as obtained. The patient PATIENT NAME: ELENO GROSSMAN JR ACCONT #: [id number] completed course of antibiotics for pneumonia. O verall condition improved. We attempted for skilled nursin g placement that was denied by insurance company and the patient eventually was discharged home. Dictated By: Guy Marcial MD WT: DS:SNATANAEL/01/NTS Conf#: [id number]/DID#: [id number] Authenticated by Guy Marcial MD On 01/08/2021 1 2:17:38 PM Electronically Signed by Guy Marcial MD on at 1218 PATIENT NAME: ELENO GROSSMAN JR ACCONT #: [id number] 2020-12-20 12:08:00-00:00 [id number] [facility] [place] [address] PATIENT NAME: ELENO GROSSMAN JR ADMIT DATE: ACCOUNT NO: [id number] ROOM NO: [facility] AGE: 70 REPORT TYPE: PROGRESS NOTE SEX: M ADMITTING PHYSICIAN:Guy Marcial MD ATTENDING PHYSICIAN:Guy Marcial MD DATE: 12/20/2020 PULMONARY PROGRESS NOTE The patient was seen from 9:50 a.m. to 10:15 a.m . A total of 25 minutes were spent taking care of the patient. The patient was discussed with [place] [facility]. SUBJECTIVE: The patient is a 70-year-old man with a history of seizure disorder that fell, hit his head. The re is subdural hematoma requiring evacuation due to severe increased intracranial pressures and midl ine shift. The patient did well. The patient has obstructive sleep apnea. H e has lost significant amount of weight and that has helped with this process. The patient is on BiPAP at night. The patient also has chronic liver disease of unknown etiology and he is being followed by GI. PHYSICAL EXAMINATION: VITAL SIGNS: He has a temperature of 97.8, heart rate of 76, respiratory rate of 20, blood pressure is 129/73, and pulse oxime try is 97% on room air. HEENT: Normocephalic, atraumatic. Pupils are equ al and reactive. NECK: Supple. There is no JVD. CHEST: Decreased breath sounds with increased ex piratory phase. CARDIOVASCULAR: S1, S2. No murmurs, gallop, or r ub. ABDOMEN: Bowel sounds are positive. Soft and non tender. GENITOURINARY: No CVA tenderness. EXTREMITIES: There is no clubbing, cyanosis, or edema. NEUROLOGIC: The patient is awake, alert, oriente d x3, and grossly nonfocal. DIAGNOSTIC IMPRESSION: 1. Obstructive sleep apnea. The patient is on Bi PAP at night. 2. Status post respiratory failure. This has eric ared. 3. Morbid obesity. The patient is losing weight and this is helping. 4. Subdural hematoma with increased intracranial pressure, status post craniotomy and evacuation of hematoma. 5. Chronic liver disease of unknown etiology. PLAN: The patient is doing b art respiratory stubbs and he will be followed very closely in the unit. Dictated By: River Issa MD PATIENT NAME: ELENO GROSSMAN Yoni FRANKLIN ACCONT #: [id number] WT: PN:S.JEANNETTE/SRINIVAS/NTS Conf#: [id number]/DID#: [id number] Authenticated by Estevan Issa MD On 12/20/2020 12:31:05 PM Electronically Signed by River Issa MD on 07/02 at 1231 PATIENT NAME: DANICA GROSSMANRenetta Vallejo JR ACCONT #: [id number] 2020-12-20 08:22:00-00:00 [id number] [facility] [place] [address] PATIENT NAME: ELENO GROSSMAN ADMIT DATE: ACCOUNT NO: [id number] ROOM NO: .[facility] AGE: 70 REPORT TYPE: PROGRESS NOTE SEX: M ADMITTING PHYSICIAN:Guy Marcial MD ATTENDING PHYSICIAN:Guy Marcial MD DATE: 12/20/2020 PROGRESS NOTE PROBLEM: Hepatocellular injury. SUBJECTIVE: The patient indicates that h e is not having any abdominal pain. He is not experiencing any nausea or vomiting. OBJECTIVE: VITAL SIGNS: Temperature is 36.7, pulse of 76, r espirations of 20, blood pressure is 129/73. GENERAL: The patient is alert, in no acute distr ess. ABDOMEN: Soft and nontender. LABORATORY STUDIES: All pending with blood tests for causes of other chronic liver diseases thus far are normal or ne gative. Antimitochondrial antibody and KATYA are pending. Abdominal ultrasound and repeat elastography is for today. 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 Etiology is uncertain. Nonalcoholic fatty liver disease may be a factor in this setting. Doubt cirrhosis, but we will repeat elastography to further assess. PATIENT EDUCATION: The patient informed of the adeel fernandez. Dictated By: Julien Coronel Jr, MD WT: PN:S.JEANNETTE/KARYN/BRAYDEN Conf#: [id number]/DID#: [id number] Authenticated by Julien Coronel MD On 07:40:37 AM at 0740 PATIENT NAME: ELENO GROSSMAN JR ACCONT #: [id number] 2020-12-20 04:26:00-00:00 9966-9212 [place] [address] PATIENT NAME: ELENO GROSSMAN JR ADMIT DATE: ACCOUNT NO: [id number] ROOM NO: [facility] AGE: 70 REPORT TYPE: PROGRESS NOTE SEX: M ADMITTING PHYSICIAN:Guy Marcial MD ATTENDING PHYSICIAN:Guy Marcial MD DATE: INFECTIOUS DISEASE PROGRESS NOTE SUBJECTIVE: The patient is alert and attentive. Discharge plans are as noted and vancomycin is completed today. All repeat cu ltures are negative. No further antibiotics will be needed at the time o f discharge. I appreciate the opportunity to participate in his care. Dictated By: Ismael Julio Jr, MD WT: PN:S.JEANNETTE/SELINA/BRAYDEN Conf#: [id number]/DID#: [id number] Authenticated by Ismael Julio MD On 01:05:34 PM at 1305 PATIENT NAME: ELENO GROSSMAN JR ACCONT #: [id number] 2020-12-20 02:20:00-00:00 [id number] [place] [address] PATIENT NAME: ELENO GROSSMAN JR ADMIT DATE: ACCOUNT NO: [id number] ROOM NO: S.[facility] AGE: 70 REPORT TYPE: PROGRESS NOTE SEX: M ADMITTING PHYSICIAN:Guy Marcial MD ATTENDING PHYSICIAN:Guy Marcial MD DATE: 12/19/2020 PROGRESS NOTE SUBJECTIVE: Events reviewed. OBJECTIVE: VITAL SIGNS: Normal. GENERAL: Condition is good. Speech is normal. EXTREMITIES: Moving all extremities. LABORATORY DATA: Reviewed. MEDICATIONS: Reviewed. ASSESSMENT AND PLAN: He is a 70-year-old patient with traumatic right hemispheric subdural hematoma and seizur es. He is doing well. Continue present treatment. Dictated By: Garrick Xiao WT: PN:CHEO/RIKKI/BRAYDEN Conf#: [id number]/DID#: [id number] Authenticated by Garrick Thompson MD On 021 12:14:50 AM Electronically Signed by Garrick Thompson on at 0015 PATIENT NAME: ELENO GROSSMAN JR ACCONT #: [id number] 2020-12-19 14:41:00-00:00 [id number] [place] [id number] PATIENT NAME: ELENO GROSSMAN JR ADMIT DATE: ACCOUNT NO: [id number] ROOM NO: S[facility] AGE: 70 REPORT TYPE: PROGRESS NOTE SEX: M ADMITTING PHYSICIAN:Guy Marcial MD ATTENDING PHYSICIAN:Guy Marcial MD DATE: 12/19/2020 PROGRESS NOTE SUBJECTIVE: Events noted and discussed with nurs ing staff. Doing about the same. Discharge planning is in progress. Discuss ed with case management department. [place] [facility]. The patient will be discharged home with family. OBJECTIVE: VITAL SIGNS: Blood pressure 120/60, heart rate o f 80, temperature 36.7, and respiratory rate of 17. HEENT: Head is normocephalic. CHEST AND LUNGS: Bilateral breathing sounds. HEART: Normal S1, S2. ABDOMEN: Soft. EXTREMITIES: No edema. PERTINENT FINDINGS: 1. Potassium 5.1. 2. Creatinine 1. 3. Hemoglobin 9.7. ASSESSMENT AND PLAN: 1. Acute hypoxemic respiratory failure, doing we ll, stable. Dr. Issa, pulmonary service is following the patie nt. Discharge planning is in progress. 2. Acute kidney injury. Renal function is stable , creatinine at 1. Avoid nephrotoxic agents. 3. Debility. PT, OT, fall precaution. 4. End-stage liver disease, either nonalcoholic steatohepatitis or complete cirrhosis. Dr. Julien Coronel, GI service is foll owing the patient. Discussed with the . The patient needs outpatient foll owup. Dictated By: Guy Marcial MD WT: PN:CHEO/CLARISSA. Conf#: [id number]/DID#: [id number] PATIENT NAME: DANICA GROSSMANRenetta Vallejo JR ACCONT #: [id number] Authenticated by Guy Marcial MD On 12/19/2020 0 7:52:38 PM Electronically Signed by Guy Marcial MD on 06/01 at 1953 PATIENT NAME: ELENO GROSSMAN Yoni FRANKLIN ACCONT #: [id number] 2020-12-19 10:19:00-00:00 [id number] [facility] [address] [place] [address] PATIENT NAME: ELENO GROSSMAN ADMIT DATE: ACCOUNT NO: [id number] ROOM NO: [facility] AGE: 70 REPORT TYPE: PROGRESS NOTE SEX: M ADMITTING PHYSICIAN:Guy Marcial MD ATTENDING PHYSICIAN:Guy Marcial MD DATE: 12/19/2020 PULMONARY PROGRESS NOTE The patient was seen from 8:45 a.m. to 9:10 a.m. A total of 25 minutes were spent taking care of the patient. SUBJECTIVE: The patient is a 70-year-old man with a history of seizure disorder that fell hitting his head developing altered me ntal status and on CT scan of the head in the Emergency Department, he was fou nd to have a large subdural hematoma with increased intracranial pressure si gns and midline shift. The patient had a craniotomy. The hematoma was evacu ated. The patient is morbidly obese, has obstructive sleep apnea. The patient has been on a diet since he has been in [facility] and he has lost a significan t amount of weight. He still has to sleep at night and wh en he naps on a BiPAP machine. The patient also was found to have chronic liver disease with an ultr asound that shows an elastographic measurement consistent with cirrho sis. Ammonia level was within range and his liver function tests are slightly elevated. GI is following him for this. PHYSICAL EXAMINATION: VITAL SIGNS: He has a temperature of 97.8, heart rate of 89, respiratory rate of 19, blood pressure is 102/62 and a pulse oxim etry of 96%. HEENT: Normocephalic, atraumatic. Pupils are equ al and reactive. NECK: Supple. There is no JVD. CHEST: Decreased breath sounds with shallow evelyn thing. CARDIOVASCULAR: S1, S2. No murmurs, gallop, or r ub. ABDOMEN: Bowel sounds are positive. Soft, obese, and nontender. GENITOURINARY: No CVA tenderness. EXTREMITIES: There is no clubbing, cyanosis, or edema. NEUROLOGIC: The patient is awake, alert, oriente d x3, and grossly nonfocal. DIAGNOSTIC IMPRESSION: 1. Status post subdural hematoma, status post ev acuation. The patient is significantly improved. 2. Obstructive sleep apnea. The patient is on Bi PAP at night and during naps. 3. Hypoxemia that has cleared. 4. Morbid obesity, improving. 5. Chronic liver disease either cirrhosis or ANIBAL H. The patient is being followed by GI. 6. Hyperkalemia. The patient will be getting a d ose of Kayexalate. The PATIENT NAME: ELENO GROSSMAN JR ACCONT #: [id number] patient will be followed closely. Dictated By: River Issa MD WT: PN:SNATANAEL/SABINA Conf#: [id number]/DID#: [id number] Authenticated by Estevan Issa MD On 12/19/2020 11:48:40 AM Electronically Signed by River Issa MD on 06/01 at 1149 PATIENT NAME: ELENO GROSSMAN JR ACCONT #: [id number] 2020-12-19 06:37:00-00:00 [id number] [place] [address] PATIENT NAME: ELENO GROSSMAN JR ADMIT DATE: ACCOUNT NO: [id number] [facility] AGE: 70 REPORT TYPE: PROGRESS NOTE SEX: M ADMITTING PHYSICIAN:Guy Marcial MD ATTENDING PHYSICIAN:Guy Marcial MD DATE: 12/19/2020 PROGRESS NOTE PROBLEM: Hepatocellular injury. SUBJECTIVE: The patient states he is not having any abdominal pain. No nausea, no vomiting. OBJECTIVE: VITAL SIGNS: Temperature is 36.5, pulse of 78, r espirations of 21, blood pressure 145/72. ABDOMEN: Soft and essentially nontender. No guar ding. LABORATORY STUDIES: Alpha fetoprotein is normal at 2.2. Ferritin is 53.7. Hepatitis B surface antigen and antibody are non reactive. RPR is nonreactive. ASSESSMENT: The patient's clinical picture is st able. Liver enzymes have not been reported yet today. We will plan to reassess liver status for presence of cirrhosis with repeat elastography as well as a formal abdominal ultrasound. PLAN: DIAGNOSTIC: Follow up pending laboratory studies. Followup ultrasound of liver and repeat elastography of the liver. PATIENT EDUCATION: The patient informed of the a jim. Dictated By: Julien Coronel Jr, MD WT: PN:SNATANAEL/CATALINA Conf#: [id number]/DID#: [id number] Authenticated and Edited by Julien alba MD On 12/19/20 7:15:46 AM at 0717 PATIENT NAME: ELENO GROSSMAN JR ACCONT #: [id number] 2020-12-19 04:37:00-00:00 [id number] [place] [address] PATIENT NAME: ELENO GROSSMAN JR ADMIT DATE: ACCOUNT NO: [id number] ROOM NO: S[facility] AGE: 70 REPORT TYPE: PROGRESS NOTE SEX: M ADMITTING PHYSICIAN:Guy Marcial MD ATTENDING PHYSICIAN:Guy Marcial MD DATE: INFECTIOUS DISEASE PROGRESS NOTE SUBJECTIVE: The patient's mental status has not changed. Dr. Coronel' complete note reviewed. Liver function tests jada t were abnormal being worked up. This is day #13 of 14 of vancomycin for C. d ifficile colitis, plan on stopping on time. Nothing to suggest active infe ctious disease processes at this juncture. All other notes have been reviewe d, read, acknowledged and understood. Discussed in detail with Dr. Marcial as well as Dr. Issa. Some degree of risk for infectiou s disease related complications, but so far so good on antibiotic holiday, so we will continue to fo llow at this juncture. Nurses note no other specific issue s from infectious disease standpoint on the evening shift. OBJECTIVE: VITAL SIGNS: Temperature 97 degrees, blood pressure 145/72, pulse 78 per minute and regular, respirations are 21 per minute. GENERAL: He is a well-developed, well-nourished man, in no acute distress. SKIN: No visible lesions. NODES: None were palpable. HEENT: Has not changed. NECK: Supple. LUNGS: Scattered crackles and rhonchi. HEART: Regular rhythm without murmurs, gallops, or rubs. ABDOMEN: Soft, nontender. No hepatosplenomegaly. EXTREMITIES: No clubbing, cyanosis, or significa nt edema. NEUROLOGIC: The patient is at baseline. LABORATORY DATA AVAILABLE: Has been reviewed. IMPRESSION: Stable from infectious disease stand point. RECOMMENDATIONS: Completing course of therapy fo r Clostridium difficile colitis. Nothing to suggest active infectious di sease process at present time though he is at some risk. We will armida nue to follow and adjust antimicrobial agents and interventions as data and cli nical circumstances dictate. Discussed in detail with Dr. Marcial, Dr. Issa and Dr. Eric oseguera. Dictated By: Ismael Julio Jr, MD PATIENT NAME: ELENO GROSSMAN JR ACCONT #: [id number] WT: PN:S.HIM/SELINA/NTS Conf#: [id number]/DID#: [id number] Authenticated by Ismael Julio MD On 02:50:39 PM at 1451 PATIENT NAME: ELENO GROSSMAN JR ACCONT #: [id number] 2020-12-18 11:26:00-00:00 [id number] [facility] [place] [address] PATIENT NAME: ELENO GROSSMAN JR ADMIT DATE: ACCOUNT NO: [id number] ROOM NO: [facility] AGE: 70 REPORT TYPE: PROGRESS NOTE SEX: M ADMITTING PHYSICIAN:Guy Marcial MD ATTENDING PHYSICIAN:Guy Marcial MD DATE: 12/18/2020 PROGRESS NOTE SUBJECTIVE: Events noted. Discussed with staff. Doing well. No chest pain, no nausea. No other issues reported overnight. R ehab placement is on hold according to manager of case. OBJECTIVE: VITAL SIGNS: Blood pressure 130/60, heart rate o f 70, and temperature 97.1. HEENT: Head is normocephalic. CHEST AND LUNGS: Bilateral breathing sounds. HEART: Normal S1, S2. ABDOMEN: Soft. EXTREMITIES: No edema. ASSESSMENT AND PLAN: 1. Subdural hematoma. Doing well. Echo is normal . Blood pressure controlled. 2. Debility. PT, OT, fall precaution. The patien t is walking more than 200 feet. According to manager of case, rehab was decli victoria. 3. Abnormal AST and ALT. Abdominal ultrasound wi ll be obtained. Dr. Julien Coronel, GI service is following the patient. 4. Obesity. Assessed weight loss with the patien t. Discharge planning is in progress. education manager following. Dictated By: Guy Marcial MD WT: PN:S.JEANNETTE/CLARISSA./BRAYDEN Conf#: [id number]/DID#: [id number] Authenticated by Guy Marcial MD On 12/19/2020 0 2:29:39 PM Electronically Signed by Guy Marcial MD on 06/01 at 1430 PATIENT NAME: ELENO GROSSMAN ACCONT #: [id number] 2020-12-18 11:25:00-00:00 5544-1174 [facility] [place] [address] PATIENT NAME: ELENO GROSSMAN ADMIT DATE: ACCOUNT NO: [id number] ROOM NO: S[facility] AGE: 70 REPORT TYPE: PROGRESS NOTE SEX: M ADMITTING PHYSICIAN:Guy Marcial MD ATTENDING PHYSICIAN:Guy Marcial MD DATE: 12/18/2020 PULMONARY PROGRESS NOTE The patient was seen from 09:35 a.m. to 10:00 a. m. A total of 25 minutes were spent taking care of the patient. SUBJECTIVE: The patient is a 70-year-old man wit h a history of obstructive sleep apnea, seizure disorde r that fell hitting his head and developing altered mental status. The patient was taken to the [facility] Department and he was found to have a subdural hematoma with i ncreased intracranial bleed in midline shift. The patient had a craniotomy and evacuati on of the hematoma. The patient is morbidly obese, b ut he is on a diet. He is losing significant amount of weight. He has obstructive sleep apnea and he is on a BiPAP device. The patient is feeling better. PHYSICAL EXAMINATION: VITAL SIGNS: He has a temperature of 97.8, heart rate of 71, respiratory rate of 18, blood pressure 137/70, and pulse oximetry of 98%. HEENT: Normocephalic and atraumatic. Pupils are equal and reactive. NECK: Supple. There is no JVD. CHEST: Decreased breath sounds with increased ex piratory phase. CARDIOVASCULAR: S1, S2. No murmurs, gallop, or r ub. ABDOMEN: Bowel sounds are positive. Soft and non tender. GENITOURINARY: No CVA tenderness. EXTREMITIES: There is no clubbing, cyanosis, or edema. NEUROLOGIC: The patient is awake, alert, oriente d x3, and grossly nonfocal. DIAGNOSTIC IMPRESSION: 1. Subdural hematoma with altered mental status. This is improved. 2. Obstructive sleep apnea. The patient is on a BiPAP at night and during nap times. 3. Hypoxemia. This is getting better. 4. Morbid obesity. This is getting better. 5. Possible cirrhosis of fatty liver. The patien t had an ultrasound with elastography and this was consistent with cirrho sis. The patient is improving. He is seriously ill an d he will be followed very closely in the unit. Dictated By: River Issa MD PATIENT NAME: ELENO GROSSMAN Yoni FRANKLIN ACCONT #: [id number] WT: PN:S.JEANNETTE/SRINIVAS/BRAYDEN Conf#: [id number]/DID#: [id number] Authenticated by Estevan Issa MD On 12/18/2020 12:55:21 PM Electronically Signed by River Issa MD on 05/02 at 1255 PATIENT NAME: JOHANNAELENORenetta Vallejo JR ACCONT #: [id number] 2020-12-18 07:11:00-00:00 6238-3732 [facility] [address] [address] PATIENT NAME: ELENO GROSSMAN ADMIT DATE: ACCOUNT NO: [id number] ROOM NO: [facility] AGE: 70 REPORT TYPE: CONSULTATION SEX: M ADMITTING PHYSICIAN:Guy Marcial MD ATTENDING PHYSICIAN:Guy Marcial MD CONSULTATION DATE: 12/18/2020 CONSULTING PHYSICIAN: Julien Coronel Jr, MD CONSULTATION REPORT CONCLUSION: 1. Persistent abnormal liver enzymes with questi on of cirrhosis, etiology uncertain. Rule out nonalcoholic fatty liver dis ease. Rule out chronic hepatitis B infection. Rule out other causes of chronic liver disease. 2. Somewhat equivocal elastography without evide nce of a nodular liver on CT scan. Rule out cirrhosis. Rule out cholelithiasi s. RECOMMENDATIONS: 1. Abdominal ultrasound. 2. Repeat a liver elastography and compared to h is previous study on 11/24/2020. 3. Follow up liver profile in a.m. 4. KATYA, RPR, and ferritin. 5. Serum Copper and ceruloplasmin. 6. Antimitochondrial antibody. 7. Alpha-1 antitrypsin level. 8. Alpha fetoprotein. DISCUSSION: A 70-year-old moderately obese male who indicates he has had a history of a fatty liver for over 15 years and n oted to have abnormal liver enzymes. The patient was not aware of having any history of cirrhosis of the liver and has not had any known previous history of other liver diseases. He has not had any known history of gallstones. The patient has not had any imaging studies prior to this hospitalization. I t should be noted that the patient denies any alcohol intake and he is not aware of any family history of liver disease. It should be noted that during the cours e of this hospitalization, the patient has had abdominal pelvic CT scan, which demonstr ates a normal texture and contour of the liver and no dilated bili danita tree. However, the elastography of the liver did suggest cirrho sis, though the quality of the study was felt to be suboptimal. REVIEW OF SYSTEMS: CARDIOPULMONARY: No chest pain or shortness of b reath. He does have a history PATIENT NAME: ELENO GROSSMAN JR ACCONT #: [id number] of sleep apnea. PAST MEDICAL HISTORY: Has included exogenous to morbid obesity. Obstructive sleep apnea. Seizure disorder, which is required long-term Dilantin therapy. Head trauma resulting in subdural hematoma and m ass effect, requiring craniotomy. Status post bilateral cataract surge ry. History of fatty liver, possibly HENDERSON. Questionable cirrhosis by elastog carolyn of the liver. Colonoscopy in 2019 normal. Essential hypertensi on. Previous urinary tract infection. Some depression/anxiety. FAMILY HISTORY: No family history of liver disea se. ALLERGIES: PENICILLIN. HABITS: Denies history of cigarette or alcohol u se. MEDICATIONS: See medication administration recor d. PHYSICAL EXAMINATION: VITAL SIGNS: Height is 5 feet 5 inches, weight i s 113 kilograms. Temperature 37.0, pulse of 65, respirations of 18, blood pre ssure 160/71. GENERAL: The patient is alert, in no acute distr ess. SKIN: Moist without rash. LYMPHATICS: No supraclavicular, no axillary felice opathy. HEENT: Eyes: Pupils are round. The patient is no t icteric. Nose: Nasal septum is in midline. Mouth: Grossly normal oral mucosa. Multiple teeth missing, all missing in the upper jaw area. NECK: Supple without palpable adenopathy. Slight ly obese. LUNGS: Clear. No wheezing. ABDOMEN: No surgical scars noted. Bowel sounds a re present. Abdomen is soft and nontender. Liver and spleen did not appear t o be enlarged. There is no rebound, no guarding and no discrete mass. EXTREMITIES: No gross deformities. No edema. NEUROLOGIC: The patient is alert and responsive. He has no focal deficit. PERTINENT LABORATORY STUDIES: Today reve al a potassium of 4.5, glucose is 105, BUN of 17 with a creatinine of 0.9. Total biliru bin is 0.2, AST is 60, ALT is 74, alkaline phosphatase is 137. H and H is 9.8 and 29.5 with a WBC of 9800. Hepatitis C antibody is nonreactive. Elastograph y of the liver suggest cirrhosis. Abdominopelvic CT scan suggests sanjay l contour of the liver. ASSESSMENT: The patient has persistent abnormal liver enzymes. He has been on anti-seizure medicine in the form of Dilantin in the past and continues to be on this, which may contribute to his abnormal liver enzymes. Enzyme pattern has been fairly pronounced and does warrant assessme nt for other causes of liver disease. Cirrhosis is suggested on the elastogra phy though this study by reflected in his report is may not be reliable. We will therefore repeat elastography and compare as well as obtain a for mal abdominal ultrasound to assess for gallbladder disease as reassessment o f the bile duct as well. The patient should undergo a screening for other cau ses of liver disease such as screening for autoimmune hepatitis, primary bili danita cholangitis, alpha-1 antitrypsin deficiency, Wyatt disease and hemoc hromatosis. I have discussed the above consideration s and concerns with the patient who is PATIENT NAME: ELENO GROSSMAN JR ACCONT #: [id number] in agreement with studies. Thank you for letting me to share in the care of this patient. We will follow him along with you as needed during hospitalizat ion. Dictated By: Julien Coronel Jr, MD WT: CON:S.JEANNETTE/KARYN/NTS Conf#: [id number]/DID#: [id number] Authenticated by Julien Coronel MD On 06:42:55 AM at 0643 PATIENT NAME: ELENO GROSSMAN JR ACCONT #: [id number] 2020-12-18 05:06:00-00:00 [id number] [facility] [place] [address] PATIENT NAME: ELENO GROSSMAN JR ADMIT DATE: ACCOUNT NO: [id number] ROOM NO: S.[facility] AGE: 70 REPORT TYPE: PROGRESS NOTE SEX: M ADMITTING PHYSICIAN:Guy Marcial MD ATTENDING PHYSICIAN:Guy Marcial MD DATE: INFECTIOUS DISEASE PROGRESS NOTE SUBJECTIVE: Overall about the same from infectio us diseases standpoint. This represents day #12 of 14 of vancomycin for C. di fficile colitis. Repeat cultures so far are negative for any other activ e infectious disease related problems at present time. Tolerating antibiotics so far without difficulty. Nothing to suggest progressive C. difficile infe ction. All notes have been reviewed, read, acknowledged and understood. Dis cussed in detail with nursing personnel at the bedside. OBJECTIVE: VITAL SIGNS: Temperature 97 degrees, blood pressure 112/71, pulse 86 per minute and regular, respirations are 18 per minute. GENERAL: He is a well-developed, well-nourished man. No acute distress. SKIN: No new visible lesions. NODES: None were palpable. HEENT: Has not changed. NECK: Supple. LUNGS: Fairly clear. HEART: Regular rhythm without murmurs, gallops, or rubs. ABDOMEN: Soft, nontender. No hepatosplenomegaly. EXTREMITIES: No clubbing, cyanosis, or significa nt edema. NEUROLOGIC: The patient is at baseline. LABORATORY DATA AVAILABLE: Has been reviewed. IMPRESSION: Stable from infectious diseases kevin dpoint, no new major issues noted. RECOMMENDATIONS: Completing course of th erapy as outlined. We will continue as is and adjust antimicrobial agents and intervent ions as data and clinical circumstances dictate. Dictated By: Ismael Julio Jr, MD WT: PN:S.JEANNETTE/SELINA/NTS Conf#: [id number]/DID#: [id number] PATIENT NAME: ELENO GROSSMAN ACCONT #: [id number] Authenticated by Ismael Julio MD On 02:50:38 PM at 1451 PATIENT NAME: ELENO GROSSMAN JR ACCONT #: [id number] 2020-12-18 03:27:00-00:00 2984-5492 [place] [address] PATIENT NAME: ELENO GROSSMAN JR ADMIT DATE: ACCOUNT NO: [id number] ROOM NO: [facility] AGE: 70 REPORT TYPE: PROGRESS NOTE SEX: M ADMITTING PHYSICIAN:Guy Marcial MD ATTENDING PHYSICIAN:Guy Marcial MD DATE: 12/17/2020 PROGRESS NOTE SUBJECTIVE: Events reviewed. OBJECTIVE: VITAL SIGNS: Blood pressure and heart rate are n ormal. GENERAL: General condition is good. NEUROLOGIC: Alert and oriented. Speech is normal . Cranial nerves normal. Moving all extremities. LABORATORY DATA: Reviewed. MEDICATIONS: Reviewed. ASSESSMENT AND PLAN: He is [age]-year-old patient with traumatic subdural hematoma and status post craniectomy. Seizures. Neurologi heri, doing well. Continue present treatment. Dictated By: Garrick Xiao WT: PN:S.JEANNETTE/NUNOU/NTS Conf#: [id number]/DID#: [id number] Authenticated by Garrick Thompson MD On 021 10:55:39 PM Electronically Signed by Garrick Thompson on 06/01 at 2256 PATIENT NAME: ELENO GROSSMAN JR ACCONT #: [id number] 2020-12-17 13:12:00-00:00 [id number] [facility] [address] [address] PATIENT NAME: ELENO GROSSMAN JR ADMIT DATE: ACCOUNT NO: [id number] ROOM NO: S[facility] AGE: 70 REPORT TYPE: PROGRESS NOTE SEX: M ADMITTING PHYSICIAN:Guy Marcial MD ATTENDING PHYSICIAN:Guy Marcial MD DATE: 12/17/2020 PROGRESS NOTE SUBJECTIVE: Events noted and discussed with nurs ing staff. Doing about the same, awake and alert. No chest pain, no nausea. OBJECTIVE: VITAL SIGNS: Blood pressure 122/60, heart rate 7 1, temperature 97.8, respiratory rate 17. HEENT: Head is normocephalic. CHEST AND LUNGS: Bilateral breathing sounds. CARDIOVASCULAR: S1, S2. ABDOMEN: Soft. EXTREMITIES: No edema. PERTINENT FINDINGS: 1. Sodium 141. 2. Potassium 4.5. 3. Chloride 102. 4. Hemoglobin 9.8. ASSESSMENT AND PLAN: 1. Subdural hematoma, improved. [facility] 2. Debility. PT, OT, fall precaution ____ gettin g better. Plan is to send him [place] a [place], pending insurance approval . 3. Respiratory failure, improved. The patient on oxygen as needed. Dr. Issa, pulmonary service is following the patient. Cont inue the patient on DuoNeb every 4 hours as needed. 4. Abnormal liver panel, GI service, Dr. Julien jane will be consulted. Dictated By: Guy Marcial MD WT: PN:S.JEANNETTE/SOCAR/BRAYDEN Conf#: [id number]/DID#: [id number] Authenticated by Guy Marcial MD On 12/19/2020 0 2:29:38 PM PATIENT NAME: ELENO GROSSMAN JR ACCONT #: [id number] Electronically Signed by Guy Marcial MD on 06/01 at 1430 PATIENT NAME: ELENO GROSSMAN JR ACCONT #: [id number] 2020-12-17 11:45:00-00:00 3220-1434 [place] [address] PATIENT NAME: ELENO GROSSMAN JR ADMIT DATE: ACCOUNT NO: [id number] [facility] AGE: 70 REPORT TYPE: PROGRESS NOTE SEX: M ADMITTING PHYSICIAN:Guy Marcial MD ATTENDING PHYSICIAN:Guy Marcial MD DATE: 12/17/2020 PULMONARY PROGRESS NOTE The patient was seen from 9: 50 to 10:15. The patient was discussed with OK Bowen. SUBJECTIVE: The patient is a 70-year-old man with a history of morbid obesity, seizure disorder, obstructiv e sleep apnea that fell, hit his head and developed a subdural hematoma with mass effect. The patien t had to have a craniotomy to relieve the intracranial pressure and th e midline shift. The patient did well. He was transferred to [facility] where he was placed on BiPAP due to the fact that he has severe sleep apnea. The pat ient is to use the machine while he sleeps at whatever time of the day. The patient is morbidly obese. He has been advised to lose weight and he has done so. The patient is to be transferred to a rehab facility. PHYSICAL EXAMINATION: VITAL SIGNS: Temperature is 97.8, heart rate is 71, respiratory rate is 18, and blood pressure is 132/69, and the pulse oximetry is 93% to 98% on 2 liters via nasal cannula. HEENT: Normocephalic, atraumatic. Pupils are equ al and reactive. NECK: Supple. There is no JVD. CHEST: Clear to auscultation. CARDIOVASCULAR: S1, S2. No murmurs, gallop, or r ub. ABDOMEN: Bowel sounds are positive. Soft and non tender. GENITOURINARY: No CVA tenderness. EXTREMITIES: There is no clubbing, cyanosis, or edema. LABORATORY DATA: Sodium is 141, potassium is 4.5 , chloride is 102, CO2 is 29, glucose is 105, BUN is 17, c reatinine 0.9, total protein is 6.2, albumin is 3.8, calcium is 8.7, bilirubin is 0.2, SGOT 60, SGPT 74, alkaline phosphatase 137. White count is 9.8 with an H and H of 9.8 and 29 .5 with a 301,000 platelets. DIAGNOSTIC IMPRESSION: 1. Status post subdural hematoma. The patient is doing better. He still has some areas that need to reabsorb. He needs to be followed up for that. 2. Respiratory failure, obstructive sleep apnea. The patient is on oxygen and on BiPAP while he sleeps. 3. History of seizure disorder. 4. Morbid obesity. PATIENT NAME: ELENO GROSSMAN JR ACCONT #: [id number] 5. Possible cirrhosis by ultrasound with elastog carolyn. The patient has elevated liver function test. The patient is ser iously ill and he will be followed very closely in the unit. Dictated By: River Issa MD WT: PN:S.JEANNETTE/SRINIVAS/BRAYDEN Conf#: [id number]/DID#: [id number] Authenticated by Estevan Issa MD On 12/17/2020 01:56:08 PM Electronically Signed by River Issa MD on 04/01 at 1356 PATIENT NAME: ELENO GROSSMAN JR ACCONT #: [id number] 2020-12-17 04:36:00-00:00 [id number] [address] PATIENT NAME: ELENO GROSSMAN JR ADMIT DATE: ACCOUNT NO: [id number] ROOM NO: [facility] AGE: 70 REPORT TYPE: PROGRESS NOTE SEX: M ADMITTING PHYSICIAN:Guy Marcial MD ATTENDING PHYSICIAN:Guy Marcial MD DATE: INFECTIOUS DISEASE PROGRESS NOTE SUBJECTIVE: The patient's mental status overall has not changed. Nurses note no other issues from infectious diseases' standp oint through the evening. Day #11 of 14 of vancomycin for the C. difficile col itis. All notes have been reviewed, read, acknowledged , and understood from the team. Discussed in detail with nursing personnel at the bedside. Discharge planning is noted. Discussed in detail with Dr. Marcial as well as Dr. Luis Manuel goel. Nurses note no other issues from infectious disease standpoint throug h the evening. OBJECTIVE: VITAL SIGNS: Temperature is 97 degrees, blood pr essure 139/61, pulse 84 per minute and regular, respirations are 20 per yumiko te. GENERAL: He is a well-developed, well-nourished man, in no acute distress. SKIN: No new visible lesions. NODES: None were palpable. HEENT: Has not changed. NECK: Supple. LUNGS: Scattered crackles, fairly clear. HEART: Regular rhythm without murmurs, gallops, or rubs. ABDOMEN: Soft, nontender. No hepatosplenomegaly . EXTREMITIES: No clubbing, cyanosis, or significa nt edema. NEUROLOGIC: The patient is at baseline. LABORATORY DATA AVAILABLE: Has been reviewed. IMPRESSION: Stable from infectious diseases kevin dpoint, course of therapy for Clostridium difficile colitis. RECOMMENDATIONS: Continuing as is for no w. No antibiotic changes are indicated at present time. Remain vigilant for further nos ocomial issues and adjust interventions as data and clinical circumstances dictate. Dictated By: Ismael Julio Jr, MD WT: PN:S.JEANNETTE/SELINA/BRAYDEN Conf#: [id number]/DID#: [id number] PATIENT NAME: ELENO GROSSMAN JR ACCONT #: [id number] Authenticated by Ismael Julio MD On 02:50:37 PM at 1451 PATIENT NAME: JOHANNAELENORenetta Vallejo JR ACCONT #: [id number] 2020-12-16 17:26:00-00:00 [id number] [place] [address] PATIENT NAME: ELENO GROSSMAN JR ADMIT DATE: 0 11/22/20 ACCOUNT NO: [id number] ROOM NO: S.474 AGE: 70 REPORT TYPE: PROGRESS NOTE SEX: M ADMITTING PHYSICIAN:Guy Marcial MD ATTENDING PHYSICIAN:Guy Marcial MD DATE: 12/16/2020 SUBJECTIVE: Events noted, doing well. No chest p ain, no nausea. OBJECTIVE: VITAL SIGNS: Blood pressure 130/60, heart rate o f 80, and temperature 97. HEENT: Head is normocephalic. CHEST AND LUNGS: Bilateral breathing sounds. HEART: Normal S1, S2. ABDOMEN: Soft. EXTREMITIES: No edema. LABORATORY DATA: Potassium 4.3. ASSESSMENT AND PLAN: 1. Subdural hematoma. Doing well. Following with therapies. Discharge planning in progress. Case management department following the patient. 2. Respiratory failure, resolved, and is stable. BiPAP at nighttime. Dr. Issa, pulmonary service is following the patien t. Continue the patient on DuoNeb every 4 hours as needed. 3. Diabetes mellitus type 2. Continue the patien t on Lantus 10 units daily. The patient is on sliding scale insulin. 4. Hypertension, controlled. Dictated By: Guy Marcial MD WT: PN:CHEO/CLARISSA. Conf#: [id number]/DID#: [id number] Authenticated by Guy Marcial MD On 12/19/2020 0 2:29:37 PM Electronically Signed by Guy Marcial MD on 06/01 at 1430 PATIENT NAME: ELENO GROSSMAN JR ACCONT #: [id number] 2020-12-16 11:57:00-00:00 [id number] [facility] [address] [address] PATIENT NAME: ELENO GROSSMAN JR ADMIT DATE: ACCOUNT NO: [id number] ROOM NO: S.474 AGE: 70 REPORT TYPE: PROGRESS NOTE SEX: M ADMITTING PHYSICIAN:Guy Marcial MD ATTENDING PHYSICIAN:Guy Marcial MD DATE: 12/16/2020 PULMONARY PROGRESS NOTE The patient was seen from 8:45 a.m. to 9:10 a.m. A total of 25 minutes were spent taking care of the patient. SUBJECTIVE: The patient is a 70-year-old man with a history of morbid obesity, hypertension and seizure disorder that fell head on and developed a subdural hematoma. The patient had to go to the OR due to the fact that he had an increased intracranial press ure with midline shift. The hematoma was evacuated. The patient is doing better. He has obstructive sleep apnea and he is on a BiPAP that he uses while asleep either at night or during the daytime while taking naps. The patient is doing better. He is awaiting to be transferred to a rehab facility. The patient has been encourage d to lose weight, which will help him tremendously with his present health an d future. PHYSICAL EXAMINATION: VITAL SIGNS: He has a temperature of 97.8, heart rate of 68, respiratory rate of 18, blood pressure is 131/67 and the pulse ox imetry is 98% on 2 liters via nasal cannula. HEENT: Normocephalic, atraumatic. Pupils react t o light. NECK: Supple. There is no JVD. The patient has a Mallampati stage III to IV. CHEST: Clear to auscultation. CARDIOVASCULAR: S1, S2. No murmurs, gallop or ru b. ABDOMEN: Positive bowel sounds, obese and nonten mariana. GENITOURINARY: No CVA tenderness. EXTREMITIES: There is no clubbing, cyanosis or e damian. NEUROLOGIC: The patient is awake, alert, oriente d x3 and grossly nonfocal. DIAGNOSTIC IMPRESSION: 1. Obstructive sleep apnea, doing well on BiPAP. 2. Obesity, doing well. He is losing weight and I have been encouraging to do so. 3. Weakness and debility. The patient will be go ing to a rehab center. 4. Respiratory failure. The patient is most of t he time on room air. Sometimes he needs nasal can nula, especially when he is lying down and his lung bases are pressed by his prominent abdomen. 5. Seizure disorder, on Dilantin. 6. Diabetes, on Levemir and NovoLog. 7. Peptic ulcer disease prophylaxis. The patient is on oral Protonix. PATIENT NAME: ELENO GROSSMAN JR ACCONT #: [id number] 8. Deep venous thrombosis prophylaxis. The patie nt is on SCDs and is being encouraged to ambulate. He cannot be anticoagula temi due to his recent [employer] bleed. 9. Urinary tract infection. He is on nitrofurant oin. 10. Cirrhosis versus fatty liver, with an ultras ound of the right upper quadrant with elastography suggesting cirrhosis as the diagnosis. The patient is on a diabetic diet and in the future should not consume alcohol or excessive amount of carbohydrates. Weight reductio n is also imperative. The patient will be followed closely. Dictated By: River Issa MD WT: PN:S.JEANNETTE/SRINIVAS/BRAYDEN Conf#: [id number]/DID#: [id number] Authenticated by Estevan Issa MD On 12/16/2020 01:39:13 PM Electronically Signed by River Issa MD on 03/01 at 1339 PATIENT NAME: ELENO GROSSMAN JR ACCONT #: [id number] 2020-12-16 04:46:00-00:00 1594-4165 [place] [address] PATIENT NAME: ELENO GROSSMAN JR ADMIT DATE: ACCOUNT NO: [id number] ROOM NO: [facility] AGE: 70 REPORT TYPE: PROGRESS NOTE SEX: M ADMITTING PHYSICIAN:Guy Marcial MD ATTENDING PHYSICIAN:Guy Marcial MD DATE: INFECTIOUS DISEASE PROGRESS NOTE SUBJECTIVE: The patient's mental status has not changed, alert and attentive. Day #10 of 14 of vancomycin for C. difficile col itis. No other new positive culture data of concern. Repeat blood and urine cultures are negative. So nothing to suggest a systemic infection at prese nt time, which is good news. All notes have been reviewed, read, acknowledged and understood. Discussed in detail with nursing personnel at bedside as well as Dr. Issa and Dr. Marcial. OBJECTIVE: VITAL SIGNS: Temperature 98 degrees, blood pressure 135/71, pulse 73 per minute and regular, respirations are 17 per minute. GENERAL: He is a well-developed, well-nourished man. No acute distress. SKIN: No new visible lesions. NODES: None were palpable. HEENT: Has not changed. NECK: Supple. LUNGS: Scattered crackles and rhonchi. HEART: Regular rhythm without murmurs, gallops, or rubs. ABDOMEN: Soft, nontender. No hepatosplenomegaly. EXTREMITIES: No clubbing, cyanosis, or significa nt edema. NEUROLOGIC: No specific new focal findings. LABORATORY DATA AVAILABLE: Has been reviewed. IMPRESSION: Stable from infectious diseases kevin dpoint, no new major issues noted. RECOMMENDATIONS: We will continue as is for now. No antibiotic changes are indicated at present time. Remain vigilant for f urther nosocomial issues and adjust interventions as data and clinical circum stances dictate. Dictated By: Ismael Julio Jr, MD WT: PN:S.JEANNETTE/SELINA/NTS Conf#: [id number]/DID#: [id number] PATIENT NAME: DANICA GROSSMANRenetta Vallejo JR ACCONT #: [id number] Authenticated by Ismael Julio MD On 02:50:36 PM at 1451 PATIENT NAME: ELENO GROSSMAN ACCONT #: [id number] 2020-12-16 00:54:00-00:00 [id number] [facility] [place] [address] PATIENT NAME: ELENO GROSSMAN ADMIT DATE: ACCOUNT NO: [id number] ROOM NO: S[facility] AGE: 70 REPORT TYPE: PROGRESS NOTE SEX: M ADMITTING PHYSICIAN:Guy Marcial MD ATTENDING PHYSICIAN:Guy Marcial MD DATE: 12/15/2020 SUBJECTIVE: The patient seen and examined in his room. He states that earlier today, he got dizzy. He was lying down and when he tried to sit, he had spinning sensation lasting for a minute or two. After a few minutes, he tried again and on moving and changing posture, he fel t again and had vertigo for brief 1 or 2 minutes. This happened when physica l therapist was there for physical therapy. Because of these episodes, he did not do physical therapy today. However, yesterday he ambulated f airly well in the hallway and does not feel unsteady. No headache. OBJECTIVE: VITAL SIGNS: Normal. GENERAL: General condition is good. He is orient ed x3. Speech is normal. Cranial nerves are normal. EXTREMITIES: Moving all extremities. LABORATORY DATA: Reviewed. MEDICATIONS: Reviewed. ASSESSMENT AND PLAN: He is a 70-year-old patient, who is status post traumatic subdural hematoma over the right hemisphere for which he had surgery with craniectomy. He has made excellent recovery. Mimi rologically doing well. Continue present treatment. History of dizziness on changing position. It se ems he probably had benign paroxysmal positional vertig o. If symptoms will persist, then we will start him on meclizine. For present, continue current raphael tment. Dictated By: Garrick Xiao WT: PN:SNATANAEL/RIKKI/BRAYDEN Conf#: [id number]/DID#: [id number] Authenticated by Garrick Thompson MD On 08:26:26 PM PATIENT NAME: ELENO GROSSMAN ACCONT #: [id number] Electronically Signed by Garrick Thompson on 04/01 at 2025 PATIENT NAME: ELENO GROSSMAN ACCONT #: [id number] 2020-12-15 16:30:00-00:00 [id number] [facility] [place] [address] PATIENT NAME: ELENO GROSSMAN JR ADMIT DATE: ACCOUNT NO: [id number] ROOM NO: S.474 AGE: 70 REPORT TYPE: PROGRESS NOTE SEX: M ADMITTING PHYSICIAN:Guy Marcial MD ATTENDING PHYSICIAN:Guy Marcial MD DATE: 12/15/2020 PROGRESS NOTE SUBJECTIVE: Events noted. Discussed with nursing staff. Doing well. No chest pain, no nausea, no other issues reported overni t. Diarrhea has improved. OBJECTIVE: VITAL SIGNS: Blood pressure 130/60, heart rate o f 60, and temperature 37. HEENT: Head is normocephalic. CHEST AND LUNGS: Bilateral breathing sounds. CARDIOVASCULAR: S1, S2. ABDOMEN: Soft. EXTREMITIES: No edema. PERTINENT FINDINGS: COVID screen was negative. ASSESSMENT AND PLAN: 1. Acute hypoxemic respiratory failure, resolved, stable. Dr. Issa, pulmonary service is following the patient. Rehab placemen t is in progress. 2. Subdural hematoma. The patient has ____ and d oing well. Physical therapy following the patient. The patient is on fall pr ecaution. 3. Clostridium difficile colitis, treated. Diarr hea, improving. Dr. Ismael Julio, infectious disease following the patient. 4. Debility. PT, OT, fall precaution. Rehab plac ement was declined by insurance company. The [place]. Case management department following. Dictated By: Guy Marcial MD WT: PN:SNATANAEL/CLARISSA./ Conf#: [id number]/DID#: [id number] Authenticated by Guy Marcial MD On 12/16/2020 0 1:25:46 PM PATIENT NAME: ELENO GROSSMAN Yoni FRANKLIN ACCONT #: [id number] Electronically Signed by Guy Marcial MD on 03/01 at 1326 PATIENT NAME: DANICA GROSSMANRenetta Vallejo JR ACCONT #: [id number] 2020-12-15 10:42:00-00:00 8939-9954 [facility] [place] [address] PATIENT NAME: ELENO GROSSMAN ADMIT DATE: ACCOUNT NO: [id number] ROOM NO: S[facility] AGE: 70 REPORT TYPE: PROGRESS NOTE SEX: M ADMITTING PHYSICIAN:Guy Marcial MD ATTENDING PHYSICIAN:Guy Marcial MD DATE: 12/15/2020 PULMONARY PROGRESS NOTE The patient was seen from 7:35 a.m. to 8:00 a.m. A total of 35 minutes were spent taking care of the patient. The patient was discussed with OK Riggs. SUBJECTIVE: The patient is a 70-year-old man wit h a history of seizure disorder, who fell and hit his head, developing a subdural hematoma. The patient was found to have on CT scan and clinica lly signs of increased intracranial pressure and midline shift. The pat ient had a craniotomy with evacuation of the hematoma. The patient's follow up MRI shows some residual blood products in the [employer] an d this will need to be followed up as an outpatient. The patient is morbidly obe se. He has lost significant weight with a diet that he was placed. The patient has obstructive sleep apnea. He is on CPAP and he is doing rehabilitation in [facility]. The abdiel ent is tolerating his CPAP well. He is using it at night and during naps. PHYSICAL EXAMINATION: VITAL SIGNS: He has a temperature of 98, heart rate of 83, respiratory rate of 19, blood pressure is 149/74, and pulse oximetry is 96% on room air. HEENT: Normocephalic, atraumatic. Pupils are equ al and reactive. NECK: Supple. There is no JVD. CHEST: Clear to auscultation. CARDIOVASCULAR: S1, S2. No murmurs, gallop, or r ub. ABDOMEN: Bowel sounds are positive. Soft and non tender. GENITOURINARY: No CVA tenderness. EXTREMITIES: There is no clubbing, cyanosis, or edema. NEUROLOGIC: The patient is awake, alert, oriente d x3, and grossly nonfocal. The patient is obese. LABORATORY DATA: Sodium is 139, potassium is 4.3 , chloride is 106, CO2 is 26, glucose is 104, BUN is 19, creatinine is 1.0, total protein is 6.2, albumin is 3.8. His SGOT is 56, SGPT is 60, alkaline phosph atase is 134. White count is 8.7 with an H and H of ____ with 307,000 platelets. COVID-19 done yesterday was negative and he got this bec ause he will be moving to a rehabilitation facility. DIAGNOSTIC IMPRESSION: 1. Status post subdural hematoma with craniotomy and evacuation. PATIENT NAME: ELENO GROSSMAN [facility] #: [id number] 2. Obstructive sleep apnea. The patient is on Bi PAP at night and when he sleeps during the daytime. 3. Obesity. The patient has lost significant kwabena unt of weight. He has been encouraged to lose weight. He has most likely a fatty liver. He had an electrographic study of his liver and it showed changes consistent with either cirrhosis or other process. His liver function t ests have improved as the patient loses weight. 4. Weakness and debility. The patient is recover ing. The patient is doing physical therapy. 5. Respiratory failure. The patient is now on r oom air. 6. Seizure disorder. The patient is on Dilantin. 7. Diabetes. He is on Levemir and NovoLog. 8. Peptic ulcer disease prophylaxis. He is on Pr otonix. 9. Deep venous thrombosis prophylaxis. Arielle jamil is on sequential compression devices and he is ambulating. He can not be anticoagulated due to his subdural hematoma. 10. Urinary tract infection with Escherichia col i. The patient is on nitrofurantoin. The patient is seriously ill and he will be followed very closely in the unit. Dictated By: River Issa MD WT: PN:S.JEANNETTE/SRINIVAS/BRAYDEN Conf#: [id number]/DID#: [id number] Authenticated by Estevan Issa MD On 12/15/2020 01:12:14 PM Electronically Signed by River Issa MD on 01/30 at 1312 PATIENT NAME: ELENO GROSSMAN JR ACCONT #: [id number] 2020-12-15 04:42:00-00:00 [id number] [facility] [place] [address] PATIENT NAME: ELENO GROSSMAN ADMIT DATE: ACCOUNT NO: [id number] ROOM NO: [facility] AGE: 70 REPORT TYPE: PROGRESS NOTE SEX: M ADMITTING PHYSICIAN:Guy Marcial MD ATTENDING PHYSICIAN:Guy Marcial MD DATE: INFECTIOUS DISEASE PROGRESS NOTE SUBJECTIVE: The patient is overall about the ron e, off of antibiotics for urinary tract infection. Urine culture is clean. Day #9 of 14 vancomycin for Clostridium difficile colitis, toleratin g so far without difficulty. All notes have been reviewed, read, ac knowledged and understood. Discussed in detail with nursing personnel as well as Dr. Marcial and Dr. Issa. All notes have been reviewed, read, acknowledged and understood from the team. Nurses note no specific issues from infectious disease standpoi nt through the evening of concern. OBJECTIVE: VITAL SIGNS: Temperature 97 degrees, blood pressure 150/77, pulse 66 per minute and regular, respirations are 20 per minute. GENERAL: He is a well-developed, well-no urished man, who at present time is in no acute distress. SKIN: No new visible lesions. NODES: None were palpable. HEENT: Has not changed. NECK: Supple. LUNGS: Scattered crackles, fairly clear. HEART: Regular rhythm without murmurs, gallops, or rubs. ABDOMEN: Soft, nontender. No hepatosplenomegaly. EXTREMITIES: No clubbing, cyanosis, or significa nt edema. NEUROLOGIC: No specific new focal findings. LABORATORY DATA AVAILABLE: Has been reviewed. IMPRESSION: Stable from infectious diseases kevin dpoint. Completing course of therapy for the Clostridium difficile colitis. RECOMMENDATIONS: Continue as is for now. No anti biotic changes are indicated at present time. Remain vigilant for further nos ocomial issues and adjust interventions as data and clinical circumstances dictate. Dictated By: Ismael Julio Jr, MD WT: PN:S.JEANNETTE/SELINA/BRAYDEN PATIENT NAME: ELENO GROSSMAN JR ACCONT #: [id number] Conf#: [id number]/DID#: [id number] Authenticated by Ismael Julio MD On 01:23:51 PM at 1324 PATIENT NAME: ELENO GROSSMAN JR ACCONT #: [id number] 2020-12-14 13:00:00-00:00 [id number] [facility] [address] [address] PATIENT NAME: ELENO GROSSMAN JR ADMIT DATE: ACCOUNT NO: [id number] ROOM NO: S.474 AGE: 70 REPORT TYPE: PROGRESS NOTE SEX: M ADMITTING PHYSICIAN:Guy Marcial MD ATTENDING PHYSICIAN:Guy Marcial MD DATE: 12/14/2020 PROGRESS NOTE SUBJECTIVE: Events noted. Doing well. Sitting in a chair. No chest pain, no nausea. No other issues reported overnight. Usha gutierrez has improved. He is disappointed about denial for rehab placement. OBJECTIVE: VITAL SIGNS: Blood pressure 120/70, heart rate o f 60, temperature 36.5, and respiratory rate 17. HEENT: Head is normocephalic. CHEST AND LUNGS: Bilateral breathing sounds. HEART: Normal S1, S2. ABDOMEN: Soft. EXTREMITIES: No edema. PERTINENT FINDINGS: 1. Hemoglobin 9.9. 2. WBC 8.7. 3. Potassium 4.3. ASSESSMENT AND PLAN: 1. Acute hypoxemic respiratory failure, improved, stable. Dr. Issa, pulmonary service is following the patient. 2. Subdural hematoma. Doing well. Discharge plan supa is in progress per case management department. The patient will be disch arged to [facility]. 3. Seizure, controlled. Continue the patient on Dilantin 100 t.i.d. 4. Diabetes mellitus type 2. Monitor blood sugar a.c. and at bedtime. The patient is on sliding scale insulin. Dictated By: Guy Marcial MD WT: PN:SNATANAEL/CLARISSA.01/NTS Conf#: [id number]/DID#: [id number] Authenticated by Guy Marcial MD On 12/14/2020 0 9:53:50 PM PATIENT NAME: ELENO GROSSMAN JR ACCONT #: [id number] Electronically Signed by Guy Marcial MD on 12/30 at 2154 PATIENT NAME: ELENO GROSSMAN JR ACCONT #: [id number] 2020-12-14 09:39:00-00:00 [id number] [facility] [address] [address] PATIENT NAME: ELENO GROSSMAN JR ADMIT DATE: ACCOUNT NO: [id number] ROOM NO: S474 AGE: 70 REPORT TYPE: PROGRESS NOTE SEX: M ADMITTING PHYSICIAN:Guy Marcial MD ATTENDING PHYSICIAN:Guy Marcial MD DATE: 12/14/2020 PULMONARY PROGRESS NOTE The patient was seen from 8:10 a.m. to 8:35 a.m. A total of 35 minutes were spent taking care of the patient. SUBJECTIVE: The patient is a 70-year-old man with a history of seizure disorder who fell, hit his head and developed a subdural hematoma. The patient was admitted to the hospital and he was found to have midline shift and changes are consistent with an increased intracranial pressu re. The patient had a craniotomy with which the blood products that he had in his brain were drained and removed. The patient's [employer] was closed. The p atient is obese, has obstructive sleep apnea and sometimes he does no t wear his CPAP while he is napping during the daytime. He usually wears wel l at night. The patient feels better. PHYSICAL EXAMINATION: VITAL SIGNS: He has a temperature of 97.9, heart rate is 66, respiratory rate is 18, blood pressure 136/76, and pulse oximetry is 95% on 2 liters via nasal cannula. HEENT: Normocephalic, atraumatic. Pupils are equ al and reactive. NECK: Supple. There is no JVD. CHEST: Decreased breath sounds with shallow evelyn thing. The patient is quite obese. CARDIOVASCULAR: S1, S2. No murmurs, gallop, or r ub. ABDOMEN: Bowel sounds positive. Soft and nontend er. GENITOURINARY: No CVA tenderness. EXTREMITIES: There is no clubbing, cyanosis, or significant edema. NEUROLOGIC: The patient is awake, alert, oriente d x3, and grossly nonfocal. ASSESSMENT AND PLAN: 1. Obstructive sleep apnea. The patient is on Bi PAP at night. 2. Obesity. He has been encouraged repeatedly to quit smoking. We will get a dietary consult. 3. Status post subdural daniella atilio with severe mental status changes, requiring a craniotomy and evacuation. He also had a midline shift consistent with an increased intracranial pressure. 4. Weakness and debility. The patient is going t o go for rehabilitation. 5. Respiratory failure. The patient at [facility] needs 2 liters of oxygen by nasal cannula. The patient is seriously ill and he sunni l be followed closely in the PATIENT NAME: ELENO GROSSMAN JR ACCONT #: [id number] unit. Dictated By: River Issa MD WT: PN:S.JEANNETTE/SRINIVAS/BRAYDEN Conf#: [id number]/DID#: [id number] Authenticated by Estevan Issa MD On 12/14/2020 11:24:24 AM Electronically Signed by River Issa MD on 12/30 at 1124 PATIENT NAME: ELENO GROSSMAN JR ACCONT #: [id number] 2020-12-14 04:16:00-00:00 [id number] [facility] [place] [address] PATIENT NAME: ELENO GROSSMAN JR ADMIT DATE: ACCOUNT NO: [id number] ROOM NO: [facility] AGE: 70 REPORT TYPE: PROGRESS NOTE SEX: M ADMITTING PHYSICIAN:Guy Marcial MD ATTENDING PHYSICIAN:Guy Marcial MD DATE: INFECTIOUS DISEASE PROGRESS NOTE SUBJECTIVE: Mental status overall has not change d. All notes reviewed, read, acknowledged and understood. Discussed i n detail with nursing personnel at the bedside. Tolerating antibiotics so far w ithout difficulty. Good news is repeat urine culture is negative, so we will stop the M acrobid after today at day 7. The 8 14 of vancomycin for C. difficile colit is. Otherwise, no specific other new complaints or issues are noted. OBJECTIVE: VITAL SIGNS: Temperature 97 degrees, blood pressure 130/73, pulse 71 per minute and regular, respirations are 18 per minute. GENERAL: He is a well-developed, well-nourished man. No acute distress. SKIN: No new visible lesions. NODES: None were palpable. HEENT: Has not changed. NECK: Supple. LUNGS: Scattered crackles, fairly clear. HEART: Regular rhythm without murmurs, gallops, or rubs. ABDOMEN: Soft, nontender. No hepatosplenomegaly. EXTREMITIES: No clubbing, cyanosis, or significa nt edema. NEUROLOGIC: No specific new focal findings. LABORATORY DATA AVAILABLE: Has been reviewed. IMPRESSION: Stable from an infectious di seases standpoint, no new major issues noted. RECOMMENDATIONS: Good news is his urine culture is negative. Continue present supportive care and adjust antimicrobial agents and interventions as data and clinical circumstances dictate. Dictated By: Ismael Julio Jr, MD WT: PN:S.JEANNETTE/SELINA/BRAYDEN Conf#: [id number]/DID#: [id number] PATIENT NAME: ELENO GROSSMAN JR ACCONT #: [id number] Authenticated by Ismael Julio MD On 01:14:45 PM at 1315 PATIENT NAME: ELENO GROSSMAN JR ACCONT #: [id number] 2020-12-14 00:06:00-00:00 [phone] [facility] [place] [address] PATIENT NAME: ELENO GROSSMAN JR ADMIT DATE: ACCOUNT NO: [id number] [facility] AGE: 70 REPORT TYPE: PROGRESS NOTE SEX: M ADMITTING PHYSICIAN:Guy Marcial MD ATTENDING PHYSICIAN:Guy Marcial MD DATE: 12/13/2020 PROGRESS NOTE SUBJECTIVE: The patient is seen in his room. No new events. OBJECTIVE: GENERAL: Condition is good. VITAL SIGNS: Stable. NEUROLOGIC: Speech is normal. Cranial nerves are normal. EXTREMITIES: Moving all extremities. LABORATORY DATA: Reviewed. MEDICATIONS: Reviewed. ASSESSMENT AND PLAN: He is a 70-year-old gentleman who is status post traumatic subdural hematoma over right hemisphere with lef t-sided weakness. He has made very good recovery. No significant motor weaknes s in his left upper and lower extremities. Neurologically, doing better. Armida nue present treatment. Dictated By: Garrick Xiao WT: PN:S.JEANNETTE/RANDY Conf#: [id number]/DID#: [id number] Authenticated by Garrick Thompson MD On 021 10:23:07 PM Electronically Signed by Garrick Thompson on 12/30 at 2223 PATIENT NAME: ELENO GROSSMAN JR ACCONT #: [id number] 2020-12-13 15:40:00-00:00 [id number] [facility] [address] [address] PATIENT NAME: ELENO GROSSMAN JR ADMIT DATE: ACCOUNT NO: [id number] ROOM NO: [facility] AGE: 70 REPORT TYPE: PROGRESS NOTE SEX: M ADMITTING PHYSICIAN:Guy Marcial MD ATTENDING PHYSICIAN:Guy Marcial MD DATE: SUBJECTIVE: Events noted. Discussed with nursing staff. Doing about the same. No chest pain, no nausea, no other issues repor temi overnight. Discussed with Dr. Issa. OBJECTIVE: VITAL SIGNS: Blood pressure 138/60, heart rate o f 80, temperature 97.4, and respiratory rate 17. HEENT: Head is normocephalic. NECK: Supple. CHEST AND LUNGS: Bilateral breathing sounds. HEART: Normal S1, S2. ABDOMEN: Soft. EXTREMITIES: No edema. ASSESSMENT AND PLAN: 1. Obstructive sleep apnea, BiPAP at nighttime, on supplemental oxygen as needed. 2. Obesity. Assessed weight loss ____. 3. Subdural hematoma, improving receiving physic al therapy, PT, OT, fall precaution. 4. Hypertension, controlled. Continue the patien t on losartan. Cardiology, Dr. Mcmanus following. Dictated By: Guy Marcial MD WT: PN:CHEO/CLARISSA. Conf#: [id number]/DID#: [id number] Authenticated by Guy Marcial MD On 12/14/2020 0 9:01:44 AM Electronically Signed by Guy Marcial MD on 12/30 at 0902 PATIENT NAME: ELENO GROSSMAN JR ACCONT #: [id number] 2020-12-13 11:15:00-00:00 [phone] [facility] [address] [place] [address] PATIENT NAME: ELENO GROSSMAN JR ADMIT DATE: ACCOUNT NO: [id number] ROOM NO: S.474 AGE: 70 REPORT TYPE: PROGRESS NOTE SEX: M ADMITTING PHYSICIAN:Guy Marcial MD ATTENDING PHYSICIAN:Guy Marcial MD DATE: 12/13/2020 PULMONARY AND CRITICAL CARE PROGRESS NOTE TIME SEEN: The patient was seen from 09:35 a.m. to 10:00 a.m. A total of 25 minutes were spent taking care of the patient. The patient was discussed with [employer]. SUBJECTIVE: The patient is a 70-year-old man with a history of morbid obesity, hypertension, diabetes, seizure disorder that scott d a fall, hitting his head, developing a subdural hematoma requiring a crani otomy for evacuation due to altered mental status and in creased intracranial pressure with a midline shift. The patient due to his obesity is on BiPAP at [facility]. The patient is doing better. He is losing weight, which he needed maury perately and he is getting physical therapy. PHYSICAL EXAMINATION: VITAL SIGNS: He has a temperature of 97.5, heart rate of 67, respiratory rate of 18, blood pressure is 139/68, and the pulse o ximetry is 97%. HEENT: Normocephalic, atraumatic. Pupils are equ al and reactive. NECK: Supple. There is no JVD. CHEST: Clear to auscultation. CARDIOVASCULAR: S1, S2. No murmurs, gallop, or r ub. ABDOMEN: Bowel sounds are positive. Soft and non tender. GENITOURINARY: No CVA tenderness. EXTREMITIES: There is no clubbing, cyanosis, or edema. NEUROLOGIC: The patient is awake, alert, oriente d x3, and grossly nonfocal. DIAGNOSTIC IMPRESSION: 1. Obstructive sleep apnea. The patient is on BiPAP during the daytime and any time that he sleeps during the daytime. 2. Obesity. The patient has been encouraged to l ose weight. 3. Status post subdural hematoma with some lefto terrell pockets of blood products in the head, which will be followed by neurology as an outpatient. 4. Weakness and debility. The patient will be ge tting rehabilitation. The patient is doing significantly better. He wi ll be followed very closely. Dictated By: River Issa MD PATIENT NAME: ELENO GROSSMAN JR ACCONT #: [id number] WT: PN:S.HIM/SRINIVAS/NTS Conf#: [id number]/DID#: [id number] Authenticated by Estevan Issa MD On 12/13/2020 11:30:20 AM Electronically Signed by River Issa MD on 11/30 at 1130 PATIENT NAME: ELENO GROSSMAN JR ACCONT #: [id number] 2020-12-13 04:38:00-00:00 [id number] [place] [address] PATIENT NAME: ELENO GROSSMAN JR ADMIT DATE: ACCOUNT NO: [id number] ROOM NO: S474 AGE: 70 REPORT TYPE: PROGRESS NOTE SEX: M ADMITTING PHYSICIAN:Guy Marcial MD ATTENDING PHYSICIAN:Guy Marcial MD DATE: INFECTIOUS DISEASE PROGRESS NOTE SUBJECTIVE: The patient overall is about the [facility] from infectious diseases standpoint. All notes have been reviewed from te am, read, acknowledged and understood. Discussed in detail with Dr. Marcial as well as Dr. Issa. Discharge plans are also not ed. This is day #6 of 10 to 14 days of Macrobid for ESBL urinary tract infection, day #7 of 14 of va ncomycin for Clostridium difficile colitis. Repeat cu ltures are in progress to make sure we are ahead of primary infection. No new secondary ones have de veloped. Urine and blood cultures have been sent, rev iew them in the lab and advise. All notes have been reviewed, read, acknowledged and understood, oth erwise. OBJECTIVE: VITAL SIGNS: Temperature is 97 degrees, blood pr essure 115/67, pulse 70 per minute and regular, respirations are 16 per yumiko te. GENERAL: He is a well-developed male, at present time is in mild respiratory distress. SKIN: No new visible lesions. NODES: None were palpable. HEENT: Has not changed. NECK: Supple. LUNGS: Scattered crackles and rhonchi. HEART: Regular rhythm without murmurs, gallops, or rubs. ABDOMEN: Soft, nontender. No hepatosplenomegaly. EXTREMITIES: No clubbing, cyanosis, or significa nt edema. NEUROLOGIC: No specific new focal findings. LABORATORY DATA AVAILABLE: Has been reviewed. IMPRESSION: Stable from infectious diseases kevin dpoint, no new major issues noted. RECOMMENDATIONS: We will continue as is for now. No antibiotic changes are indicated at present time. Completing co urse of therapy as outlined. Follow up on repeat cultures and adjust interventions furt her as data and clinical circumstances dictate. Dictated By: Ismael Julio Jr, MD PATIENT NAME: ELENO GROSSMAN ACCONT #: [id number] WT: PN:S.JEANNETTE/SELINA/NTS Conf#: [id number]/DID#: [id number] Authenticated by Ismael Julio MD On 01:03:34 PM at 1303 PATIENT NAME: ELENO GROSSMAN JR ACCONT #: [id number] 2020-12-12 17:41:00-00:00 [phone] [place] [id number] PATIENT NAME: ELENO GROSSMAN JR ADMIT DATE: 11/22/20 ACCOUNT NO: [id number] ROOM NO: [facility] AGE: 70 REPORT TYPE: PROGRESS NOTE SEX: M ADMITTING PHYSICIAN:Guy Marcial MD ATTENDING PHYSICIAN:Guy Marcial MD DATE: 12/12/2020 PROGRESS NOTE SUBJECTIVE: Events noted. Doing about the same. No chest pain, no nausea, no other issues reported overnight. Discussed with Dr. Issa. OBJECTIVE: VITAL SIGNS: Blood pressure 130/60, heart rate o f 60, temperature 97.9, and respiratory rate 16. HEENT: Head is normocephalic. CHEST AND LUNGS: Bilateral breathing sounds. HEART: Normal S1, S2. ABDOMEN: Soft. EXTREMITIES: No edema. PERTINENT FINDINGS: 1. Potassium 4. 2. Total protein 6.1. 3. Albumin 3.7. 4. Hemoglobin 10.8. ASSESSMENT AND PLAN: 1. Subdural hematoma, improved. Neurology follow ing the patient. MRI report noted. Continue physical therapy. 2. Hypertension, controlled. Continue the patien t on lisinopril and amlodipine. 3. Acute hypoxemic respiratory failure, improved . Remains on BiPAP at nighttime. Dr. Issa, pulmonary service is following the patient, supplemental oxygen as needed. 4. Debility. PT, OT, fall precaution. Dictated By: Guy Marcial MD WT: PN:S.JEANNETTE/CLARISSA. Conf#: [id number]/DID#: [id number] PATIENT NAME: ELENO GROSSMAN JR ACCONT #: [id number] Authenticated by Guy Marcial MD On 12/13/2020 1 1:53:56 AM Electronically Signed by Guy Marcial MD on 11/30 at 1154 PATIENT NAME: ELENO GROSSMAN JR ACCONT #: [id number] 2020-12-12 11:03:00-00:00 [id number] [address] PATIENT NAME: ELENO GROSSMAN JR ADMIT DATE: ACCOUNT NO: [id number] ROOM NO: [facility] AGE: 70 REPORT TYPE: PROGRESS NOTE SEX: M ADMITTING PHYSICIAN:Guy Marcial MD ATTENDING PHYSICIAN:Guy Marcial MD DATE: 12/12/2020 PULMONARY PROGRESS NOTE The patient was seen from 9:40 a.m. to 10:05 a.m . A total of 25 minutes were spent taking care of the patient. The patient was discussed with [employer]. SUBJECTIVE: The patient is a 70-year-old man, morbidly obese with hypertension, diabetes, who fell hitting h is head, developing a subdural hematoma, which cause altered mental status, increased intracr anial pressure with midline shift. The patient had a craniotomy wit h removal of the blood collection. The patient also has obstructive sleep apnea secondary to obesity and he is on BiPAP. The patient has been told that he needs to use his B iPAP all the time while he is asleep including nights, naps, etc. The patient, I told him, could have fallen because of being sleepy. The patient had a repea t MRI and he has small collections of blood products. He is not having any mental impairment at this present time and this is going to be followed by neurology. PHYSICAL EXAMINATION: VITAL SIGNS: He has a temperature of 97.9, heart rate is 67, respiratory rate is 19, blood pressure is 136/63, and pulse oxime try is 96% on room air. HEENT: Normocephalic, atraumatic. Pupils are equ al and reactive. NECK: Supple. There is no JVD. CHEST: Clear to auscultation. CARDIOVASCULAR: S1, S2. No murmurs, gallop, or r ub. ABDOMEN: Bowel sounds are positive. Soft and non tender. GENITOURINARY: No CVA tenderness. EXTREMITIES: There is no clubbing, cyanosis, or edema. NEUROLOGIC: The patient is awake, alert, oriente d x3, and grossly nonfocal. LABORATORY DATA: Sodium is 140, potassium is 4.0 , chloride is 105, CO2 is 27, glucose is 84, BUN is 12, cr eatinine 1.0, total protein is 6.1, albumin is 3.7, calcium is 8.6, bilirubin is 0.2. White count is 8.1 with an H and H of 10.8 and 32.6 with a 373,000 platelets. DIAGNOSTIC IMPRESSION: 1. Obstructive sleep apnea. The patient has to use his BiPAP all the time when he sleeps. He could have fallen and acquired his subdural hematoma from being hypersomnolent. PATIENT NAME: ELENO GROSSMAN [facility] #: [id number] 2. Subdural hematoma, status post evacuation. 3. Seizure disorder, on Dilantin. 4. Systemic hypertension, controlled with the pr esent regimen. 5. Deconditioning. The patient will be t ransferred to a rehabilitation center. 6. Elevated liver function test. The patient had a cholecystographic measurement via ultrasound and his findings were consistent with cirrhosis. He would have to follow this with his [facility] care physician. The patient will be followed closely in the unit. Dictated By: River Issa MD WT: PN:S.JEANNETTE/SRINIVAS/BRAYDEN Conf#: [id number]/DID#: [id number] Authenticated by Estevan Issa MD On 12/12/2020 11:27:50 AM Electronically Signed by River Issa MD on 10/30 at 1128 PATIENT NAME: ELENO GROSSMAN JR ACCONT #: [id number] 2020-12-12 04:53:00-00:00 [id number] [facility] [place] [address] PATIENT NAME: ELENO GROSSMAN JR ADMIT DATE: ACCOUNT NO: [id number] ROOM NO: [facility] AGE: 70 REPORT TYPE: PROGRESS NOTE SEX: M ADMITTING PHYSICIAN:Guy Marcial MD ATTENDING PHYSICIAN:Guy Marcial MD DATE: INFECTIOUS DISEASE PROGRESS NOTE SUBJECTIVE: The patient's mental status overall has not changed. All notes from the team reviewed, read, acknowledg ed and understood. Discussed in detail with Dr. Marcial as well as Dr. Issa. Day #5 of 10 to 14 days of Macrobid for ESBL urinary tract infection, day #6 of 14 of va ncomycin for Clostridium difficile colitis. No fevers, chills, sw eats, or other issues noted. All notes have been reviewed from team, read, ackn owledged and understood with nighttime personnel. No specific issues are noted at this juncture. Repeat cultures will be done today as listed. OBJECTIVE: VITAL SIGNS: Temperature 98 degrees, blood pressure 129/68, pulse 72 per minute and regular, respirations are 16 per minute. GENERAL: He is a well-developed, well-no urished man, who at present time is in no acute distress. SKIN: No new visible lesions. NODES: None were palpable. HEENT: Has not changed. NECK: Supple without thyromegaly or lymphadenopa thy. LUNGS: Scattered crackles and rhonchi. HEART: Regular rhythm without murmurs, gallops, or rubs. ABDOMEN: Soft, nontender. No hepatosplenomegaly. EXTREMITIES: No clubbing, cyanosis, or significa nt edema. NEUROLOGIC: No specific new focal findings. LABORATORY DATA AVAILABLE: Has been reviewed. IMPRESSION: Stable from infectious diseases kevin dpoint, no other new major issues noted. RECOMMENDATIONS: Repeat cultures will be done to day. Continue present supportive care and we will adjust antimicrobial agents as data and clinical circumstances dictate. Antibiotic countdown is a s listed. Dictated By: Ismael Julio Jr, MD WT: PN:S.HIM/SELINA/NTS PATIENT NAME: ELENO GROSSMAN ACCONT #: [id number] Conf#: [id number]/DID#: [id number] Authenticated by Ismael Julio MD On 01:25:35 PM at 1325 PATIENT NAME: ELENO GROSSMAN JR ACCONT #: [id number] 2020-12-12 01:15:00-00:00 5801-5509 [place] [address] PATIENT NAME: ELENO GRSOSMAN JR ADMIT DATE: ACCOUNT NO: [id number] ROOM NO: [facility] AGE: 70 REPORT TYPE: PROGRESS NOTE SEX: M ADMITTING PHYSICIAN:Guy Marcial MD ATTENDING PHYSICIAN:Guy Marcial MD DATE: 12/11/2020 PROGRESS NOTE SUBJECTIVE: The patient is seen in his room. No new events. OBJECTIVE: VITAL SIGNS: Blood pressure and heart rate are n ormal. Respirations are normal. GENERAL: Condition is good. NEUROLOGIC: He is awake and appropriate. Speech is normal. Oriented x3. Cranial nerves are normal. Moving both u pper and both lower extremities fairly well. LABS: Reviewed. MEDICATIONS: Reviewed. ASSESSMENT AND PLAN: He is a 70-year-old male, w ho had traumatic right hemispheric subdural hematoma, required craniect edith and evacuation. Post-surgery, he is doing better, no significant focal deficit. Complains of intermittent headache, for which he takes Tyleno l. Neurologically stable. Continue present treatment. Dictated By: Garrick Xiao WT: PN:S.JEANNETTE/RIKKI/BRAYDEN Conf#: [id number]/DID#: [id number] Authenticated by Garrick Thompson MD On 021 11:20:00 PM Electronically Signed by Garrick Thompson on 10/30 at 2320 PATIENT NAME: ELENO GROSSMAN JR ACCONT #: [id number] 2020-12-11 13:57:00-00:00 9100-2916 [place] [address] PATIENT NAME: ELENO GROSSMAN JR ADMIT DATE: ACCOUNT NO: [id number] ROOM NO: [facility] AGE: 70 REPORT TYPE: PROGRESS NOTE SEX: M ADMITTING PHYSICIAN:Guy Marcial MD ATTENDING PHYSICIAN:Guy Marcial MD DATE: 12/11/2020 PROGRESS NOTE SUBJECTIVE: Events noted and doing well, awake a nd responsive. No chest pain, nausea, diarrhea has improved. No abdominal pain . OBJECTIVE: VITAL SIGNS: Blood pressure 130/60, heart rate 6 0, temperature 98.3, and respiratory rate 17. HEENT: Head is normocephalic. NECK: Supple. CHEST AND LUNGS: Bilateral breathing sounds. HEART: Normal S1, S2. ABDOMEN: Soft. EXTREMITIES: No edema. PERTINENT FINDINGS: 1. Bilirubin 0.2. 2. BUN 12. 3. Creatinine 1.1. 4. Sodium 130. 5. Potassium 4.2. ASSESSMENT AND PLAN: 1. Status post fall, subdural hematoma. Doing we ll. MRI report noted. Neurology, Dr. Thompson, is following the patient . 2. Obstructive sleep apnea, on BiPAP and doing b art. Dr. Issa, pulmonary service, is following the patient. 3. Seizure disorder, controlled. Continue the pa tient Dilantin. 4. Clostridium difficile colitis, remains on ora l vancomycin. Dr. Ismael Gathe, infectious disease, is following the [facility] ent. Dictated By: Guy Marcial MD WT: PN:S.JEANNETTE/CLARISSA.01/NTS Conf#: [id number]/DID#: [id number] PATIENT NAME: ELENO GROSSMAN JR ACCONT #: [id number] Authenticated by Guy Marcial MD On 12/12/2020 0 5:22:24 PM Electronically Signed by Guy Marcial MD on 10/30 at 1722 PATIENT NAME: ELENO GROSSMAN JR ACCONT #: [id number] 2020-12-11 11:40:00-00:00 [id number] [place] [address] PATIENT NAME: ELENO GROSSMAN JR ADMIT DATE: ACCOUNT NO: [id number] ROOM NO: [facility] AGE: 70 REPORT TYPE: PROGRESS NOTE SEX: M ADMITTING PHYSICIAN:Guy Marcial MD ATTENDING PHYSICIAN:Guy Marcial MD DATE: 12/11/2020 PULMONARY AND CRITICAL CARE PROGRESS NOTE The patient was discussed with OK Daniels. SUBJECTIVE: The patient is a 70-year-old man, m orbidly obese, who fell and developed a subdural hematoma requiring evacuati on secondary to increased intracranial pressure and midline shift. The located within [facility] ient also has a history of hypertension, morbid obesity; obstructiv e sleep apnea, on CPAP. The patient is doing well. The patient is supposed to [facility]. On repeat MRI, he still has some fluid collectio n secondary to the subdural hematoma, which contained blood products. The pa tieoitlio is being followed by neurology and he will probably get follo wup studies to make sure that there is no worsening of his condition. The patient feels well this morning. PHYSICAL EXAMINATION: VITAL SIGNS: He has a temperature of 98.3, heart rate of 65, respiratory rate is 18, and blood pressure is 133/61, and pulse o ximetry is 96 on 21% FiO2. HEENT: Normocephalic, atraumatic. Pupils are equ al and reactive. NECK: Supple. There is no JVD. CHEST: Clear to auscultation. CARDIOVASCULAR: S1, S2. No murmurs, gallop, or r ub. ABDOMEN: Bowel sounds are positive. Soft and non tender. GENITOURINARY: No CVA tenderness. EXTREMITIES: There is no clubbing, cyanosis, or edema. NEUROLOGIC: The patient is awake, alert, oriente d x3, and grossly nonfocal. LABORATORY DATA: Sodium is 138, potassium is 4.2 , chloride is 105, CO2 is 27, glucose is 103, BUN is 12, creatinine is 1.1, total protein of 6.3, albumin of 3.8, calcium is 8.7, bilirubin of 0.2, SGOT 46, SGPT 49, alkaline phosphatase 157. White count is 10.3 with an H and H of 10 a nd 29.5 with 431,000 platelets. DIAGNOSTIC IMPRESSION: 1. Status post subdural hematoma secondary to fa ll, post-evacuation with some residual pockets of blood products to be followe d. 2. Obstructive sleep apnea, on BiPAP, doing bett er. 3. Seizure disorder, on Dilantin. 4. Systemic hypertension. Control with the prese nt antihypertensive regimen. PATIENT NAME: ELENO GROSSMAN ACCONT #: [id number] 5. Hyperlipidemia and diabetes. 6. Elevated liver function test with an abnormal ultrasound with elastographic measurements consistent with cirrhosis. 7. Deconditioning. The patient will be transferr ed to a rehab center. The patient is seriously ill and he will be followed very closely. Dictated By: River Issa MD WT: PN:S.JEANNETTE/SRINIVAS/BRAYDEN Conf#: [id number]/DID#: [id number] Authenticated by Estevan Issa MD On 12/11/2020 12:38:39 PM Electronically Signed by River Issa MD on 10/02 at 1239 PATIENT NAME: ELENO GROSSMAN ACCONT #: [id number] 2020-12-11 04:43:00-00:00 [id number] [address] PATIENT NAME: ELENO GROSSMAN JR ADMIT DATE: ACCOUNT NO: [id number] ROOM NO: S[facility] AGE: 70 REPORT TYPE: PROGRESS NOTE SEX: M ADMITTING PHYSICIAN:Guy Marcial MD ATTENDING PHYSICIAN:Guy Marcial MD DATE: INFECTIOUS DISEASE PROGRESS NOTE SUBJECTIVE: The patient appears to be co mfortable at present time. Nurses note no other issues from infectious disease standpoint through the evening. Day #5 of 14 of vancomycin for Clostridium diff icile colitis. Day #4 of 10 to 14 days of Macrobid for ESBL isolate in the urine. Repeat studies will be done tomorrow to make sure we are ahead of primary infection. No new secondary ones have developed. Discussed in detail with Dr. Marcial as well as Dr. Issa. Nurses on the evening shift not noted any major issue infe ctious disease standpoint of concern. Tolerating antimicrobial agents so far without difficulty. OBJECTIVE: VITAL SIGNS: Temperature 97 degrees, blood pressure 132/60, pulse 72 per minute and regular, respirations are 18 per minute. GENERAL: He is a well-developed, well-no urished man, who at present time is in no acute distress. SKIN: No new visible lesions. NODES: None were palpable. HEENT: Has not changed. NECK: Supple. LUNGS: Scattered crackles and rhonchi. HEART: Regular rhythm without murmurs, gallops, or rubs. ABDOMEN: Soft, nontender. No hepatosplenomegaly. EXTREMITIES: No clubbing, cyanosis, or significa nt edema. NEUROLOGIC: The patient is at baseline. LABORATORY DATA AVAILABLE: Has been reviewed. IMPRESSION: Stable from infectious diseases kevin dpoint, no new major issues noted. RECOMMENDATIONS: Continuing as is for no w. No antibiotic changes are indicated at present time. Remain vigilant for further nos ocomial issues and adjust antimicrobial agents and interventions as data a nd clinical circumstances dictate. Dictated By: Ismael Julio Jr, MD WT: PN:S.JEANNETTE/SELINA/BRAYDEN PATIENT NAME: ELENO GROSSMAN JR ACCONT #: [id number] Conf#: [id number]/DID#: [id number] Authenticated by Ismael Julio MD On 01:25:34 PM at 1325 PATIENT NAME: ELENO GROSSMAN JR ACCONT #: [id number] 2020-12-10 12:12:00-00:00 [id number] [facility] [address] [address] PATIENT NAME: ELENO GROSSMAN JR ADMIT DATE: ACCOUNT NO: [id number] ROOM NO: [facility] AGE: 70 REPORT TYPE: PROGRESS NOTE SEX: M ADMITTING PHYSICIAN:Guy Marcial MD ATTENDING PHYSICIAN:Guy Marcial MD DATE: 12/10/2020 PROGESS NOTE SUBJECTIVE: Events noted, doing well. Diarrhea i s about the same. No chest pain, no nausea, no other issues reported overni ght. Discussed with nursing staff at the bedside. OBJECTIVE: VITAL SIGNS: Blood pressure 136/60, heart rate o f 87, temperature 97.1, and respiratory rate of 16. HEENT: Head is normocephalic. CHEST AND LUNGS: Bilateral breathing sounds. HEART: Normal S1, S2. ABDOMEN: Soft. EXTREMITIES: No edema. ASSESSMENT AND PLAN: 1. Clostridium difficile colitis, remains on ora l vancomycin. Dr. Ismael Julio, infectious disease is following the patie nt. 2. Respiratory failure, BiPAP at nighttime. Tole rating supplemental oxygen during the day. Continue the patient on DuoNeb e very [address] Issa, pulmonary service is following the patient. 3. Debility. PT, OT, fall precaution. 4. Subdural hematoma. MRI brain noted. The patie nt is followed by psychiatry for depression. Dictated By: Guy Marcial MD WT: PN:SNATANAEL/CLARISSA./NTS Conf#: [id number]/DID#: [id number] Authenticated by Guy Marcial MD On 12/11/2020 0 7:10:42 AM Electronically Signed by Guy Marcial MD on 05/ 02/21 at 1112 PATIENT NAME: ELENO GROSSMAN JR ACCONT #: [id number] 2020-12-10 11:27:00-00:00 [id number] [facility] [address] [place] [address] PATIENT NAME: ELENO GROSSMAN JR ADMIT DATE: ACCOUNT NO: [id number] ROOM NO: [facility] AGE: 70 REPORT TYPE: PROGRESS NOTE SEX: M ADMITTING PHYSICIAN:Guy Marcial MD ATTENDING PHYSICIAN:Guy Marcial MD DATE: 12/10/2020 PULMONARY PROGRESS NOTE The patient was discussed with OK Daniels. SUBJECTIVE: The patient is a 70-year-old man, mo rbidly obese with seizure disorder, hypertension, hyperlipidemia, obstructive sleep apnea, on CPAP, that fell, hit his head and developed altered mental status. The patient was found to have a subdural hematoma with an increased intracranial pressure and midline shift. The patient required craniotomy for evacu ation and decompression. The patient's mental status has improved. The patien t is on BiPAP for obstructive sleep apnea that he uses during the [facility] t and when he naps during the daytime. The patient has occasional headaches. He has had a repeat MRI of the head and it shows some residual areas where he had the diaz bdural hematoma with blood products. The patient is to follow up with chelsie willis and with neurology. PHYSICAL EXAMINATION: GENERAL: The patient is awake. He is alert. He h as no complaints this morning. VITAL SIGNS: His temperature is 98, heart rate i s 77, respiratory rate is 18, and blood pressure is 121/73, and the pulse oxim etry is 98%. HEENT: Normocephalic, atraumatic. Pupils are equ al and reactive. NECK: Supple. There is no JVD. CHEST: Clear to auscultation. CARDIOVASCULAR: S1, S2. No gallops or rub. ABDOMEN: Extremely obese and nontender. GENITOURINARY: No CVA tenderness. EXTREMITIES: There is no clubbing, cyanosis, or edema. NEUROLOGIC: The patient is awake and oriented x3 . LABORATORY DATA: Sodium is 138, potassium is 4.2 , chloride is 105, CO2 is 27, glucose is 103, BUN is 12, creatinine is 1.1, total protein is 6.3, albumin is 3.8, calcium is 8.7, bilirub in 0.2, SGOT 46, SGPT 49, alkaline phosphatase 157. White count is 10.3 with an H and H of 10 and 29 .5 with 431,000 platelets. DIAGNOSTIC IMPRESSION: 1. Status post subdural hematoma after a fall re quiring evacuation with residual pockets of blood products that need to be followed. 2. Obstructive sleep apnea, on BiPAP anytime he goes to sleep at night or during naps. PATIENT NAME: ELENO GROSSMAN JR ACCONT #: [id number] 3. Seizure disorder. The patient is on Dilantin. 4. Systemic hypertension, under control with pre sent regimen. 5. Hyperlipidemia. 6. Diabetes. 7. Elevated liver function tests associated with obesity and his ultrasound with elastographic measurements was consistent w ith cirrhosis. 8. Deconditioning. The patient is getting physic al therapy and he will be transferred to a rehab center. The patient will be followed closely. Dictated By: River Issa MD WT: PN:CHEO/SRINIVAS/BRAYDEN Conf#: [id number]/DID#: [id number] Authenticated by Estevan Issa MD On 12/10/2020 12:59:08 PM Electronically Signed by River Issa MD on 09/01 at 1259 PATIENT NAME: ELENO GROSSMAN JR ACCONT #: [id number] 2020-12-10 04:24:00-00:00 [id number] [facility] [address] [address] PATIENT NAME: ELENO GROSSMAN JR ADMIT DATE: ACCOUNT NO: [id number] ROOM NO: [facility] AGE: 70 REPORT TYPE: PROGRESS NOTE SEX: M ADMITTING PHYSICIAN:Guy Marcial MD ATTENDING PHYSICIAN:Guy Marcial MD DATE: INFECTIOUS DISEASE PROGRESS NOTE SUBJECTIVE: The patient appears to be co mfortable at present time. Nurses note no other issues from infectious disease standpoi nt through the evening. Discussed in detail with Dr. Marcial as well as Alejandro Issa. Tolerating antibiotics so far without difficulty; day #4 of 14 of vancomycin for C. difficile colitis; day #3 of 10 to 14 days of Macrobid for ESBL isolate from the urine. All notes have been reviewed as usual, re ad, acknowledged, and understood from the remainder of the team. Jovita ating antibiotics so far without any substantial diff iculty and again, no untoward issue from infectious disease standpoint, on the evening shift has bee n noted. Tolerating antimicrobial agents without significant difficu lty. OBJECTIVE: VITAL SIGNS: Temperature is 98 degrees, blood pr essure 143/71, pulse 97 per minute and regular, respirations are 20 per yumiko te. GENERAL: He is a well-develo ped, fairly well-nourished man, who at present time is in no acute distress. SKIN: No new visible lesions. NODES: None were palpable. HEENT: Has not changed. NECK: Supple. LUNGS: Scattered crackles, fairly clear. HEART: Regular rhythm without murmurs, gallops, or rubs. ABDOMEN: Soft, nontender. No hepatosplenomegaly. No rebound, guarding, rigidity or palpable mass lesions. EXTREMITIES: No clubbing, cyanosis, or significa nt edema. NEUROLOGIC: The patient is at baseline. LABORATORY DATA AVAILABLE: Has been reviewed. IMPRESSION: Stable from infectious diseases kevin dpoint, no new major issues noted. RECOMMENDATIONS: Continuing as is for no w. No antibiotic changes are indicated at present time. We will fol low up on repeat culture and other data and studies and adjust interventions as data and clinical ci rcumstances dictate. Dictated By: Ismael Julio Jr, MD PATIENT NAME: ELENO GROSSMAN JR ACCONT #: [id number] WT: PN:S.JEANNETTE/SELINA/NTS Conf#: [id number]/DID#: [id number] Authenticated by Ismael Julio MD On 01:25:34 PM at 1325 PATIENT NAME: ELENO GROSSMAN JR ACCONT #: [id number] 2020-12-10 00:26:00-00:00 [id number] [address] PATIENT NAME: ELENO GROSSMAN JR ADMIT DATE: ACCOUNT NO: [id number] ROOM NO: 474 AGE: 70 REPORT TYPE: PROGRESS NOTE SEX: M ADMITTING PHYSICIAN:Guy Marcial MD ATTENDING PHYSICIAN:Guy Marcial MD DATE: 12/09/2020 NEUROLOGY PROGRESS NOTE SUBJECTIVE: The patient is seen in his room. He is feeling better. OBJECTIVE: VITAL SIGNS: Blood pressure and heart rate are s table. GENERAL: He is breathing on his own. NEUROLOGIC: Speech is normal. Cranial nerves are normal. EXTREMITIES: Moving all extremities. LABORATORY DATA AND MEDICATIONS: Reviewed. ASSESSMENT AND PLAN: He is a 70-year-old patient who is status post traumatic right subdural hematoma and is status post surgery. Neurologically, doing well. Continue present treatment. Dictated By: Garrick Xiao WT: PN:CHEO/RIKKI/BRAYDEN Conf#: [id number]/DID#: [id number] Authenticated by Garrick Thompson MD On 021 11:19:59 PM Electronically Signed by Garrick Thompson on 10/30 at 2320 PATIENT NAME: ELENO GROSSMAN JR ACCONT #: [id number] 2020-12-09 17:06:00-00:00 [phone] [place] [id number] PATIENT NAME: ELENO GROSSMAN JR ADMIT DATE: ACCOUNT NO: [id number] ROOM NO: [facility] AGE: 70 REPORT TYPE: PROGRESS NOTE SEX: M ADMITTING PHYSICIAN:Guy Marcial MD ATTENDING PHYSICIAN:Guy Marcial MD DATE: 12/09/2020 PROGRESS NOTE SUBJECTIVE: Events noted, doing well. No chest p ain, no nausea, no other issues reported overnight. OBJECTIVE: VITAL SIGNS: Blood pressure 150/70, heart rate o f 80, and temperature 97.4. HEENT: Head is normocephalic. CHEST AND LUNGS: Bilateral breathing sounds. HEART: Normal S1, S2. ABDOMEN: Soft. EXTREMITIES: No edema. ASSESSMENT AND PLAN: 1. Clostridium difficile colitis. Dr. Ismael avitia, infectious disease following the patient. The patient remai ns on vancomycin 125 mg p.o. 4 times a day for 14 days. 2. Urinary tract infection with Dr. Selena jamil following again, remains on Macrobid for a total of 14 days. 3. Subdural hematoma. Doing well. MRI report not ed. Continue physical therapy. Neuropsychiatric following the patient for today's episode of the patient. 4. Respiratory failure, improving. Remains on diaz pplemental oxygen. Remains on BiPAP at nighttime. Dr. Issa, pulmonary service is following the patient. Dictated By: Guy Marcial MD WT: PN:SNATNAAEL/CLARISSA./ Conf#: [id number]/DID#: [id number] Authenticated by Guy Marcial MD On 12/12/2020 0 5:22:22 PM Electronically Signed by Guy Marcial MD on 10/30 at 1722 PATIENT NAME: ELENO GROSSMAN JR ACCONT #: [id number] 2020-12-09 11:26:00-00:00 [id number] [facility] [place] [address] PATIENT NAME: ELENO GROSSMAN JR ADMIT DATE: ACCOUNT NO: [id number] ROOM NO: [facility] AGE: 70 REPORT TYPE: PROGRESS NOTE SEX: M ADMITTING PHYSICIAN:Guy Marcial MD ATTENDING PHYSICIAN:Guy Marcial MD DATE: 12/09/2020 PULMONARY PROGRESS NOTE. The patient was seen from 9:45 a.m. to 10:10 a.m . A total of 25 minutes were spent taking care of the patient. The patient was discussed with OK Daniels. SUBJECTIVE: The patient is a 70-year-old man, mo rbidly obese with a seizure disorder, hypertension, hyperlipidemia, obstruct kian sleep apnea, on CPAP that fell and developed altered mental status requiring to go to the Emergency Room right away. The patient was found to have a subdural hematoma with an increased intracranial pressures and midline shift. The pa tient had a craniotomy. The hematoma was evacuated. The patient's me ntal status is starting to improve. He has obstructive sleep apnea and he is on a BiPAP at night and when he naps. The patient is feeling better. He had an ABG done to determine if he had obesity hypoventilation. He did not. His pH was normal. His CO2 was normal. The patient will be transferred eventually to get re habilitation. PHYSICAL EXAMINATION: VITAL SIGNS: He has a temperature of 97.7, heart rate of 78, respiratory rate 16, blood pressure is 150/72 , and the pulse oximetry is 99%, and this is on room air. HEENT: Normocephalic, atraumatic. Pupils are equ al and reactive. NECK: Supple. There is no JVD. CHEST: Clear to auscultation. CARDIOVASCULAR: Distant S1, S2. No murmurs, gall op, or rub. ABDOMEN: Bowel sounds are positive. Obese and no ntender. GENITOURINARY: No CVA tenderness. EXTREMITIES: There is no clubbing, cyanosis, or edema. NEUROLOGIC: The patient is awake, alert, oriente d x3, and grossly nonfocal. LABORATORY DATA: Sodium is 136, potassium is 4.3 , chloride is 102, CO2 is 23, glucose is 92, BUN is 12, creatinine is 1.1, tot al protein is 6.2, albumin is 3.9, calcium is 8.6, bilirub in is 0.2, AST 30, ALT 47, alkaline phosphatase 162. Dilantin level is 6.0, whit e count is 10.8 with an H and H of 9.9 and 30.1 with 562,000 platelets. MRI of th e brain done yesterday showed postoperative changes of the right frontal femoral temporal craniotomy . There are subacute subdural blood products subjacent to the craniotomy and a lso another blood product opacity on the right frontal convexity and withi n a small parenchymal cavity. PATIENT NAME: ELENO GROSSMAN [facility] #: [id number] DIAGNOSTIC IMPRESSION: 1. Status post subdural hematoma with ev acuation with some residual pockets of blood products. 2. Obstructive sleep apnea, on BiPAP. 3. Seizure disorder, on Dilantin. 4. Hypertension, under control. 5. Hyperlipidemia, under control. 6. Diabetes, under control. 7. Elevated liver function test and an ultrasoun d with lowest electrographic measurements consistent with either cirrhosis or fatty liver. 8. Deconditioning. The patient will be transferr ed to physical therapy. The patient is seriously ill and he will be foll owed closely. Dictated By: River Issa MD WT: PN:S.JEANNETTE/SRINIVAS/BRAYDEN Conf#: [id number]/DID#: [id number] Authenticated by Estevan Issa MD On 12/09/2020 11:55:38 AM Electronically Signed by River Issa MD on at 1156 PATIENT NAME: ELENO GROSSMAN JR ACCONT #: [id number] 2020-12-09 04:29:00-00:00 [id number] [facility] [place] [address] PATIENT NAME: ELENO GROSSMAN JR ADMIT DATE: ACCOUNT NO: [id number] [facility] AGE: 70 REPORT TYPE: PROGRESS NOTE SEX: M ADMITTING PHYSICIAN:Guy Marcial MD ATTENDING PHYSICIAN:Guy Marcial MD DATE: INFECTIOUS DISEASE PROGRESS NOTE SUBJECTIVE: The patient's mental status overall has not changed. This is day #3 of 14 days of vancomycin for Clostrid ium difficile colitis. Day #2 of 10 to 14 days of Macrobid for the ESBL isolate. All no herminia have been reviewed, read, acknowledged and understood. Discussed in detail nursing personnel at the bedside. Tolerating antibiotics so far without d ifficulty. Nurses note no other issues from infectious disease standpoint through the evening at this juncture. OBJECTIVE: VITAL SIGNS: Temperature is 98 degrees, blood pr essure 146/74, pulse 66 per minute and regular, respirations are 18 per yumiko te. GENERAL: He is a well-developed, well-no urished man, who at present time is in no acute distress. SKIN: No new visible lesions. NODES: None were palpable. HEENT: Has not changed. NECK: Supple. LUNGS: Scattered crackles, fairly clear. HEART: Regular rhythm without murmurs, gallops, or rubs. ABDOMEN: Soft, nontender. No hepatosplenomegaly. EXTREMITIES: No clubbing, cyanosis, or significa nt edema. NEUROLOGIC: The patient is at baseline. LABORATORY DATA AVAILABLE: Has been reviewed. IMPRESSION: Stable from infectious diseases sta ndpoint, on appropriate antibiotics with his known active infect ious disease problems at present time. RECOMMENDATIONS: Continuing as is for now. Antib iotic countdown is as listed. We will adjust antimicrobial agents in real time as data and clinical circumstances dictate. Discu ssed in detail with nursing personnel, patient, Dr. Marcial, and Dr. Issa. Dictated By: Ismael Julio Jr, MD WT: PN:S.JEANNETTE/SELINA/BRAYDEN PATIENT NAME: ELENO GROSSMAN Yoni [facility]ANKLIN ACCONT #: [id number] Conf#: [id number]/DID#: [id number] Authenticated by Ismael Julio MD On 12:31:55 PM at 1232 PATIENT NAME: ELENO GROSSMAN ACCONT #: [id number] 2020-12-08 16:31:00-00:00 [id number] [facility] [place] [address] PATIENT NAME: ELENO GROSSMAN ADMIT DATE: ACCOUNT NO: [id number] ROOM NO: [facility] AGE: 70 REPORT TYPE: PROGRESS NOTE SEX: M ADMITTING PHYSICIAN:Guy Marcial MD ATTENDING PHYSICIAN:Guy Marcial MD DATE: 12/08/2020 PROGRESS NOTE SUBJECTIVE: Events noted. Discussed with nursing staff. Doing about the same. No chest pain, no nausea, no other issues repor temi overnight. OBJECTIVE: VITAL SIGNS: Blood pressure is 100/60, h eart rate of 70, and temperature 36.6. HEENT: Head is normocephalic. CHEST AND LUNGS: Bilateral breathing sounds. HEART: Normal S1, S2. ABDOMEN: Soft. EXTREMITIES: No edema. PERTINENT FINDINGS: C. diff toxin was positive. ASSESSMENT AND PLAN: 1. Clostridium difficile colitis, on vancomycin oral, managed by Dr. Ismael Julio, infectious disease. We will continue all laxative. 2. Subdural hematoma. MRI report noted. The abdiel ent ____ making progress and getting up. Neurology, Dr. Thompson, is following the patient. 3. Diabetes mellitus type 2. Continue the patien t on Lantus. Continue the patient on insulin. Endocrinology following. Mon itor blood sugar. 4. Hypertension, controlled. Resume Cozaar 50 mg twice a day. Dictated By: Guy Marcial MD WT: PN:SNATANAEL/CLARISSA./NTS Conf#: [id number]/DID#: [id number] Authenticated by Guy Marcial MD On 12/09/2020 0 4:31:45 PM Electronically Signed by Guy Marcial MD on at 1632 PATIENT NAME: ELENO GROSSMAN JR ACCONT #: [id number] 2020-12-08 12:14:00-00:00 [phone] [facility] [place] [address] PATIENT NAME: ELENO GROSSMAN JR ADMIT DATE: ACCOUNT NO: [id number] ROOM NO: [facility] AGE: 70 REPORT TYPE: PROGRESS NOTE SEX: M ADMITTING PHYSICIAN:Guy Marcial MD ATTENDING PHYSICIAN:Guy Marcial MD DATE: 12/08/2020 PULMONARY PROGRESS NOTE The patient was seen from 10:25 a.m. to 10:50 a. m. A total of 25 minutes were spent taking care of the patient. The patient was discussed with OK Bowen. SUBJECTIVE: The patient is a 70-year-old man with a history of morbid obesity, seizure disorder, hypertensi on, hyperlipidemia, obstructive sleep apnea, on CPAP that developed a subdural hematoma after a fall. The patient had to have a craniotomy due to an increased intracranial pres sure and a midline shift. The patient presently is doing b art. He is on a CPAP machine during the nighttime and anytime that he takes a nap. The patient whe n he obstructs, drops his saturation real quick. The patient was g iven an ABG to determine if he has CO2 retention, so he could not g et an ASV machine like a Trilogy ventilator, but he does not. The patient mostly has obstruc tive sleep apnea. He does have obesity hypoventilation. PHYSICAL EXAMINATION: VITAL SIGNS: The patient has a blood pressure of 120/70, heart rate is 72, respiratory rate is 16, and pulse oximetry is 94 %, and he is afebrile. HEENT: Normocephalic, atraumatic. Pupils are equ al and reactive. NECK: Supple. There is no JVD. CHEST: Shallow breathing. CARDIOVASCULAR: S1, S2. No murmurs, gallop, or r ub. ABDOMEN: Bowel sounds are positive. Soft and non tender. GENITOURINARY: No CVA tenderness. EXTREMITIES: There is no clubbing, cyanosis, or edema. The patient is obese. NEUROLOGIC: The patient is awake, alert, oriente d, and grossly nonfocal. DIAGNOSTIC IMPRESSION: 1. Status post subdural hematoma with evacuation . 2. Obstructive sleep apnea. The patient is on a BiPAP at night to make it more comfortable for him. He does not require ventila tion at least during the daytime since he does not have CO2 narcosis or o besity hypoventilation. 3. Seizure disorder. 4. History of hypertension. 5. History of hyperlipidemia. 6. History of diabetes. PATIENT NAME: ELENO GROSSMAN [facility] #: [id number] 7. Elevated liver function test with an abnormal right upper quadrant ultrasound with elastography consistent with cir rhosis of the liver or fatty infiltration. 8. Deconditioning. The patient will require phys ical therapy and occupational therapy. The patient is waiting for him to be transferred to a rehab facility. For deep venous thrombosis p rophylaxis, the patient is on sequential compression dressings. For peptic ulcer disease prophylaxis, the patient is on an appropriate regimen. The patient is seriously ill and he will be followed very closely in the unit. Dictated By: River Issa MD WT: PN:S.JEANNETTE/SRINIVAS/NTS Conf#: [id number]/DID#: [id number] Authenticated by Estevan Issa MD On 12/08/2020 01:03:33 PM Electronically Signed by River Issa MD on at 1303 PATIENT NAME: ELENO GROSSMAN JR [facility] #: [id number] 2020-12-08 05:56:00-00:00 [id number] [place] [address] PATIENT NAME: ELENO GROSSMAN JR ADMIT DATE: ACCOUNT NO: [id number] ROOM NO: [facility] AGE: 70 REPORT TYPE: PROGRESS NOTE SEX: M ADMITTING PHYSICIAN:Guy Marcial MD ATTENDING PHYSICIAN:Guy Marcial MD DATE: 12/07/2020 NEUROLOGY PROGRESS NOTE SUBJECTIVE: Events reviewed. The patient is seen in his room. OBJECTIVE: GENERAL: Condition is fair. VITAL SIGNS: Stable. NEUROLOGIC: He is drowsy, but arousable. Follows command. EXTREMITIES: Moves all extremities. LABORATORY DATA: Reviewed. MEDICATIONS: Reviewed. ASSESSMENT: He is a 70-year-old patient with tra umatic right hemispheric subdural hematoma with left sided weakness and s eizures. Left-sided weakness has improved. No new seizures. He is on Dilantin . PLAN: We will check Dilantin level. Continue pre sent treatment. Dictated By: Garrick Xiao WT: PN:S.JEANNETTE/NUNOU/BRAYDEN Conf#: [id number]/DID#: [id number] Authenticated by Garrick Thompson MD On 08:04:22 PM Electronically Signed by Garrick Thompson on at 2004 PATIENT NAME: ELENO GROSSMAN JR [facility] #: [id number] 2020-12-08 04:37:00-00:00 [id number] [facility] [address] [place] [address] PATIENT NAME: ELENO GROSSMAN JR ADMIT DATE: ACCOUNT NO: [id number] [facility] AGE: 70 REPORT TYPE: PROGRESS NOTE SEX: M ADMITTING PHYSICIAN:Guy Marcial MD ATTENDING PHYSICIAN:Guy Marcial MD DATE: INFECTIOUS DISEASE PROGRESS NOTE SUBJECTIVE: The patient's mental status has not changed. Since call yesterday, patient has a positive stool for C. difficile to eliot, started oral vancomycin yesterday. This is day #2 of at least 14 days. Also has an ESBL E. coli in the urine. We will see if we can get away with Macro bid. Day #1 of that, 10 to 14 days will be planned depending on clinical respo nse. All notes from the team reviewed, read, acknowledged and understood. Dis cussed in detail with Dr. Marcial as well as Dr. Issa. Tolerating antimicr obial agents so far without difficulty. OBJECTIVE: VITAL SIGNS: Temperature is 97 degrees, blood pr essure 133/68, pulse 68 per minute and regular, respirations are 18 per yumiko te. GENERAL: He is a well-developed, well-no urished man, who at present time is in no acute distress. SKIN: No new visible lesions. NODES: None were palpable. HEENT: Has not changed. NECK: Supple. LUNGS: Scattered crackles, fairly clear. HEART: Regular rhythm without murmurs, gallops, or rubs. ABDOMEN: Soft, nontender. No hepatosplenomegaly. EXTREMITIES: No clubbing, cyanosis, or significa nt edema. NEUROLOGIC: The patient is at baseline. LABORATORY DATA AVAILABLE: Has been reviewed. IMPRESSION: Two new infectious disease issues Cl ostridium difficile colitis, started on vancomycin yester day, ESBL E. coli in the urine, the patient will be started on Macrobid today. RECOMMENDATIONS: Follow up clinical resp onse. Continue present supportive care and adjust antimicrobial interventions as data a nd clinical circumstances dictate. Dictated By: Ismael Julio Jr, MD WT: PN:S.JEANNETTE/SELINA/BRAYDEN PATIENT NAME: ELENO GROSSMAN JR [facility] #: [id number] Conf#: [id number]/DID#: [id number] Authenticated by Ismael Julio MD On 12:59:17 PM at 1259 PATIENT NAME: ELENO GROSSMAN JR [facility] #: [id number] 2020-12-07 12:01:00-00:00 [id number] [address] PATIENT NAME: ELENO GROSSMAN JR ADMIT DATE: ACCOUNT NO: [id number] [facility]OM [facility]: [facility] AGE: 70 REPORT TYPE: PROGRESS NOTE SEX: M ADMITTING PHYSICIAN:Guy Marcial MD ATTENDING PHYSICIAN:Guy Marcial MD DATE: 12/07/2020 PULMONARY PROGRESS NOTE The patient was seen from 11:30 a.m. to 11:55 a. m. A total of 25 minutes were spent taking care of the patient. The patient was discussed with Andrés and was di scussed with case management. SUBJECTIVE: The patient is a 70-year-old man sta tus post fall, developing a subdural hematoma requiring evacuation since he had an increased intracranial pressure and midline shift. The patient has a hi story of seizure disorder, on Dilantin; hypertension, hyperlipidemia, obstruct kian sleep apnea, on CPAP. The patient this morning had an ABG to make sure that he was not retaining CO2 and the ABG while awake was with in range. The patient is not a candidate to have an ASV machine at home, like a Trilogy. The patient is to be transferred to SNF facility for rehabilitation and he will need to wear a CPAP in that facility, then after he needs to get sleep studies as soon as possible. He should not be very long without wearing a CPAP and might benefit from getting a loaner machine to the fact that when he is sleeping without the mask, the patient becomes cyanotic and he obstructs severely. PHYSICAL EXAMINATION: VITAL SIGNS: He has a temperature of 98, heart rate of 79, respiratory rate of 16, blood pressure is 110/50, and pulse oximetry is 97% on 2 liters via nasal cannula. HEENT: Normocephalic, atraumatic. Pupils are equ al and reactive. NECK: Very short and thick. CHEST: Clear to auscultation. CARDIOVASCULAR: S1, S2. No murmurs, gallop, or r ub. ABDOMEN: Extremely obese and nontender. GENITOURINARY: No CVA tenderness. EXTREMITIES: There is no clubbing, cyanosis, or edema. NEUROLOGIC: The patient is awake and he is gross ly nonfocal. LABORATORY DATA: Sodium is 136, potassium is 4.3 , chloride is 102, CO2 is 23, glucose is 92, BUN is 12, creatinine is 1.1, tot al protein is 6.2, albumin is 3.9, calcium is 8.6, bilirubin is 0.2, AST is 30 , ALT is 47, alkaline phosphatase is 161. White count is 10.8 with an H and H of 30.1 and 5.3 with 562,000 platelets. Urine grew E. coli, which is sensitive to meropenem, sulfa and nitrofurantoin. PATIENT NAME: ELENO GROSSMAN JR [facility] #: [id number] DIAGNOSTIC IMPRESSION: 1. Subdural hematoma, status post evacuation. 2. Altered mental status that has improved. 3. Fatty liver versus cirrhosis. The patient is on rifaximin and lactulose. 4. Hypertension. The patient is on Norvasc, hydr alazine, losartan, propranolol. 5. History of depression. The patient is on Effe xor. 6. Peptic ulcer disease prophylaxis. The patient is on Protonix. 7. Deep vein thrombosis prophylaxis. The patient is on SCDs. 8. Hyperlipidemia. The patient is on atorvastati n. 9. Bronchial secretions. The patient is on albut jessenia and Atrovent. 10. Obstructive sleep apnea. The patient is on B iPAP at night. He will require sleep studies and he will require not to be off his CPAP or BiPAP at any time while he sleeps. The patient will be follow ed very closely in the unit. Dictated By: River Issa MD WT: PN:S.JEANNETTE/SRINIVAS/BRAYDEN Conf#: [id number]/DID#: [id number] Authenticated by Estevan Issa MD On 12/07/2020 01:03:57 PM Electronically Signed by River Issa MD on at 1304 PATIENT NAME: ELENO GROSSMAN JR [facility] #: [id number] 2020-12-07 04:50:00-00:00 [id number] [facility] [place] [address] PATIENT NAME: ELENO GROSSMAN JR ADMIT DATE: ACCOUNT NO: [id number] ROOM NO: [facility] AGE: 70 REPORT TYPE: PROGRESS NOTE SEX: M ADMITTING PHYSICIAN:Guy Marcial MD ATTENDING PHYSICIAN:Guy Marcial MD DATE: INFECTIOUS DISEASE PROGRESS NOTE SUBJECTIVE: The patient is comfortable at presen t time, alert and attentive, does have gram-negative rods in urine that I pro bably will treat under the circumstances, awaiting ID and sensitivity of or ganism, we will make further antibiotic decisions when that information is av ailable. All notes have been reviewed, read, acknowledged and understood. Dis cussed in detail with Dr. Marcial as well as Dr. Issa. OBJECTIVE: VITAL SIGNS: Temperature is 98 degrees, blood pressure of 128/79, pulse 83 per minute and regular, respirations are 18 per yumiko te. GENERAL: He is a well-developed, well-no urished man, who at present time is in no acute distress. SKIN: No new visible lesions. NODES: None were palpable. HEENT: Has not changed. NECK: Supple. LUNGS: Scattered crackles and rhonchi. HEART: Regular rhythm without murmurs, gallops, or rubs. ABDOMEN: Soft, nontender. No hepatosplenomegaly. EXTREMITIES: No clubbing, cyanosis, or significa nt edema. NEUROLOGIC: The patient is at baseline. LABORATORY DATA AVAILABLE: Has been reviewed. IMPRESSION: Stable from infectious diseases kevin dpoint except gram-negative rods in the urine. RECOMMENDATIONS: Follow up on ID and sensitivity of organism, we will begin antibiotics directed against this organism when information returns. We will adjust antimicrobial interventions as da ta and clinical circumstances dictate. Dictated By: Ismael Julio Jr, MD WT: PN:SNATANAEL/SELINA/BRAYDEN Conf#: [id number]/DID#: [id number] PATIENT NAME: ELENO GROSSMAN JR [facility] #: [id number] Authenticated by Ismael Julio MD On 01:09:24 PM at 1309 PATIENT NAME: ELENO GROSSMAN JR [facility] #: [id number] 2020-12-06 17:38:00-00:00 [id number] [place] [address] PATIENT NAME: ELENO GROSSMAN JR ADMIT DATE: ACCOUNT NO: [id number] ROOM NO: [facility] AGE: 70 REPORT TYPE: PROGRESS NOTE SEX: M ADMITTING PHYSICIAN:Guy Marcial MD ATTENDING PHYSICIAN:Guy Marcial MD DATE: PROGRESS NOTE SUBJECTIVE: Doing well, ____ potty and c omplaining of diarrhea. Discussed with nursing staff. Stool for C. diff is in progress. No chest pain, no nausea. His is present at the bedside. OBJECTIVE: VITAL SIGNS: Blood pressure 120/60, heart rate 8 7. HEENT: Head is normocephalic. CHEST AND LUNGS: Bilateral breathing sounds. HEART: Normal S1, S2. ABDOMEN: Soft. EXTREMITIES: No edema. ASSESSMENT AND PLAN: 1. Ulcerative colitis, stool for C. diff is pend ing. 2. Subdural hematoma, improved. Doing much garett r. 3. Diabetes mellitus type 2. Continue the patien t on Levemir 10 units daily. The patient is on sliding scale insulin. 3. Hypertension, controlled. Continue the patien t on amlodipine 10 mg daily. Dictated By: Guy Marcial MD WT: PN:SNATANAEL//BRAYDEN Conf#: [id number]/DID#: [id number] Authenticated by Guy Marcial MD On 12/07/2020 0 1:22:08 PM Electronically Signed by Guy Marcial MD on at 1322 PATIENT NAME: ELENO GROSSMAN JR [facility] #: [id number] 2020-12-06 12:48:00-00:00 [id number] [facility] [place] [address] PATIENT NAME: ELENO GROSSMAN JR ADMIT DATE: ACCOUNT NO: [id number] ROOM NO: [facility] AGE: 70 REPORT TYPE: PROGRESS NOTE SEX: M ADMITTING PHYSICIAN:Guy Marcial MD ATTENDING PHYSICIAN:Guy Marcial MD DATE: 12/06/2020 PULMONARY PROGRESS NOTE The patient was seen from 12 noon to 12:25 p.m. A total of 25 minutes were spent taking care of the patient. The patient wa s discussed with OK Potter. SUBJECTIVE: The patient is a 70-year-old man with history of seizure disorder, on Dilantin; hypertension, hyperlipidemia, obstr uctive sleep apnea, who was admitted after a fall to an acute care hospital with increasing headache and left sided weakness and was found to have a subd ural hematoma, which required emergently evacuation, compression. The CT scan of the chest showed midline shift. The patient had to be intubated and mecha nically ventilated. The patient was extubated and he passed a mo dified barium swallow. The patient now needs to be on BiPAP while he is asleep since he has episodes of obstruction that he has had for quite some time, but never d iagnosed. The patient in general is doing better. He has no acute complai nts. OBJECTIVE: VITAL SIGNS: He has a temperature of 98, heart rate of 89, respiratory rate of 18, blood pressure is 99/59 and he has a pulse oximetry of 98% on 2 liters via nasal cannula. HEENT: Normocephalic, atraumatic. Pupils are equ al and reactive. NECK: Supple. There is no JVD. CHEST: Decreased breath soun ds with increased expiratory phase, otherwise clear to auscultation. ABDOMEN: Quite obese, and nontender. GENITOURINARY: No CVA tenderness. EXTREMITIES: There is no clubbing, cyanosis, or edema. NEUROLOGIC: The patient is awake, alert, oriente d, and grossly nonfocal. LABORATORY DATA: Sodium is 140, potassium is 4.6 , chloride is 105, CO2 is 26, glucose is 115, creatinine 1 .0, total protein of 6.4, albumin is 4.0, calcium is 8.7, bilirubin is 0.2, SGOT 47, SGPT 62, alkalin e phosphatase is 165. White count is 10.0 with an H and H of 9.1 and 31.1 wi th 618,000 platelets. DIAGNOSTIC IMPRESSION: 1. Respiratory failure with hypoxemia. The patie nt is doing significantly better. The patient is able to sat above 90% on room air if he is sitting up. By lying down due to his obesity, his abdomen co mpresses his diaphragms and making him shunt at the bases. PATIENT NAME: ELENO GROSSMAN JR [facility] #: [id number] 2. Obstructive sleep apnea. The patient is prese ntly on a BiPAP machine at night. [facility] not [facility]. The patient will require to get sleep study as an out patient unless he has CO2 retention for which reason he is going to get a blood gas. If he does, then he can get a BiPAP machine approved because of obesity hypoventilation. 3. Chronic liver disease, most likely fatty live r, possible cirrhosis. The patient is on rifaximin. 4. Altered mental status, status post subdural h ematoma. The patient is significantly better. 5. Hyperglycemia. The patient is under control w ith an insulin sliding scale. The patient is seriously ill and he will be followed very closely in the unit. Dictated By: River Issa MD WT: PN:S.JEANNETTE/SRINIVAS/BRAYDEN Conf#: [id number]/DID#: [id number] Authenticated by Estevan Issa MD On 12/06/2020 01:44:58 PM Electronically Signed by River Issa MD on at 1345 PATIENT NAME: ELENO GROSSMAN [facility] #: [id number] 2020-12-06 04:46:00-00:00 [id number] [facility] [address] [place] [address] PATIENT NAME: ELENO GROSSMAN JR ADMIT DATE: ACCOUNT NO: [id number] ROOM NO: [facility] AGE: 70 REPORT TYPE: PROGRESS NOTE SEX: M ADMITTING PHYSICIAN:Guy Marcial MD ATTENDING PHYSICIAN:Guy Marcial MD DATE: INFECTIOUS DISEASE PROGRESS NOTE SUBJECTIVE: The patient's mental status overall has not changed. No specific other issues from infectious disease standpoint through the evening. Remains on antibiotic holiday at presen t time. All repeat cultures are in progress, so far so good. No specific other issues noted from the infectious diseases standpoint. We will continue to observe for now. Discussed in detail with Dr. Marcial as well as Dr. Issa. OBJECTIVE: VITAL SIGNS: Temperature is 97 degrees, blood pr essure 112/62, pulse 82 per minute and regular, respirations are 19 per yumiko te. GENERAL: He is a well-developed, well-no urished man, who at present time is in no acute distress. SKIN: No new visible lesions. NODES: None were palpable. HEENT: Has not changed. NECK: Supple. LUNGS: Crackles and rhonchi. HEART: Regular rhythm without murmurs, gallops, or rubs. ABDOMEN: Soft, nontender. No hepatosplenomegaly. EXTREMITIES: No clubbing, cyanosis, or significa nt edema. NEUROLOGIC: No specific new focal findings. LABORATORY DATA AVAILABLE: Has been reviewed. IMPRESSION: Stable from infe ctious diseases standpoint, afebrile, on antibiotic holiday. RECOMMENDATIONS: We will continue as is for now. No antibiotic changes are indicated at present time. Remain vigilant for f urther nosocomial issues and adjust interventions as data and clinical circum stances dictate. Dictated By: Ismael Julio Jr, MD WT: PN:S.JEANNETTE/SELINA/BRAYDEN Conf#: [id number]/DID#: [id number] PATIENT NAME: ELENO GROSSMAN JR [facility] #: [id number] Authenticated by Ismael Julio MD On 01:06:57 PM at 1307 PATIENT NAME: ELENO GROSSMAN JR [facility] #: [id number] 2020-12-06 03:15:00-00:00 [id number] [address] PATIENT NAME: ELENO GROSSMAN JR ADMIT DATE: ACCOUNT NO: [id number] ROOM NO: [facility] AGE: 70 REPORT TYPE: PROGRESS NOTE SEX: M ADMITTING PHYSICIAN:Guy Marcial MD ATTENDING PHYSICIAN:Guy Marcial MD DATE: 12/05/2020 PROGRESS NOTE SUBJECTIVE: He is feeling better. OBJECTIVE: VITAL SIGNS: Blood pressure and heart rate are s table. GENERAL: Condition is good. Speech is normal. Or iented x3. NEUROLOGICAL: Moving all extremities. LABORATORY DATA: Reviewed. MEDICATIONS: Reviewed. ASSESSMENT AND PLAN: He is a 70-year-old patient with right hemispheric subdural hematoma with left-sided weakness. He h ad evacuation of subdural hematoma. Neurologically, he is doing mu ch better. Moving left upper and lower extremities fairly well. Continue present treatment. Dictated By: Garrick Xiao WT: PN:SNATANAEL/RIKKI/BRAYDEN Conf#: [id number]/DID#: [id number] Authenticated by Garrick Thompson MD On 09:31:52 PM Electronically Signed by Garrick Thompson on at 2133 PATIENT NAME: ELENO GROSSMAN JR [facility] #: [id number] 2020-12-05 16:46:00-00:00 [id number] [address] PATIENT NAME: ELENO GROSSMAN JR ADMIT DATE: ACCOUNT NO: [id number] ROOM NO: S.[facility] AGE: 70 REPORT TYPE: PROGRESS NOTE SEX: M ADMITTING PHYSICIAN:Guy Marcial MD ATTENDING PHYSICIAN:Guy Marcial MD DATE: 12/05/2020 PROGRESS NOTE SUBJECTIVE: Events noted and doing well. No ches t pain, no nausea. No other issues reported overnight. Discussed with [facility] staff. OBJECTIVE: VITAL SIGNS: Blood pressure 150/60, heart rate o f 80, and temperature 36.5. HEENT: Head is normocephalic. CHEST AND LUNGS: Bilateral breathing sounds. HEART: Normal S1, S2. ABDOMEN: Soft. EXTREMITIES: No edema. PERTINENT FINDINGS: 1. Potassium 4.6. 2. Hemoglobin 9.9. 3. WBC 10. 4. INR of 1. ASSESSMENT AND PLAN: 1. Subdural hematoma. Doing better. Continue phy sical therapy, PT, OT, fall precaution. 2. Anemia, remains stable. Hemoglobin 9.9. 3. Respiratory failure. The patient followed by Dr. Issa from pulmonary service. The patient remains on BiPAP at nightti me. Continue the patient on supplemental oxygen. 4. Left lower lobe infiltrate and pneumonia. The patient was treated with complete course of antibiotics with cefepime. Th e patient at risk for nosocomial infection. Dr. Julio following. Dictated By: Guy Marcial MD WT: PN:CHEO/CLARISSA.01/NTS Conf#: [id number]/DID#: [id number] PATIENT NAME: ELENO GROSSMAN [facility] #: [id number] Authenticated by Guy Marcial MD On 12/06/2020 0 6:19:36 AM Electronically Signed by Guy Marcial MD on at 0620 PATIENT NAME: ELENO GROSSMAN [facility] #: [id number] 2020-12-05 11:47:00-00:00 [id number] [facility] [place] [id number] PATIENT NAME: ELENO GROSSMAN JR ADMIT DATE: ACCOUNT NO: [id number] ROOM NO: [facility] AGE: 70 REPORT TYPE: PROGRESS NOTE SEX: M ADMITTING PHYSICIAN:Guy Marcial MD ATTENDING PHYSICIAN:Guy Marcial MD DATE: 12/05/2020 PULMONARY PROGRESS NOTE The patient was seen from 10:30 a.m. to 10:55 a. m. A total of 25 minutes were spent taking care of the patient. The patient was discussed with OK Tavares. SUBJECTIVE: The patient is a 70-year-old man wit h a history of seizure disorder, on Dilantin, hypertension, hyperlipide skylar that on 11/11/2000, fell, was admitted to the hospital with increasing headaches and left-sided weakness. He was found to have a subdu ral hematoma with brain, midline shift and was taken emergently to the OR for evacuation and decompre ssion. He was intubated and mechanically ventilated. The patient was extubat ed and initially failed a swallowing test and then he passed it. The abdiele nt was transferred to [facility] for further management. The patient is with obstructive sleep apnea secondary to morbid obesity and he i s on BiPAP. The patient feels better. PHYSICAL EXAMINATION: VITAL SIGNS: He has a temperature of 97.7, heart rate of 95, respiratory rate of 18, blood pressure is 130/74 and a pulse oxim etry of 93% on 2 liters via nasal cannula. HEENT: Normocephalic, atraumatic. Pupils are equ al and reactive. NECK: Supple. There is no JVD. CHEST: Shallow breathing, morbidly obese. CARDIOVASCULAR: S1, S2. No murmurs, gallop, or r ub. ABDOMEN: Bowel sounds are positive. Soft and non tender. GENITOURINARY: No CVA tenderness. EXTREMITIES: There is no clubbing, cyanosis, or edema. NEUROLOGIC: The patient is awake. He is oriented x3, and grossly nonfocal. LABORATORY DATA: Sodium is 140, potassium is 4.6 , chloride is 105, CO2 is 26, glucose is 115, BUN is 12, creatinine is 1.0, total protein is 6.4, albumin is 4.0, calcium is 8.7, bilirubin is 0.2, SGOT 47, SGPT 62, alkaline phosphatase 165, magnesium is 2.1, phosphorus is 3.9. White count is 10.0 with an H and H of 9.9 and 31.1 with 618,000 platelets. DIAGNOSTIC IMPRESSION: 1. Respiratory failure with hypoxemia. The abdiele nt is doing better. The PATIENT NAME: ELENO GROSSMAN JR [facility] #: [id number] patient had some pulmonary congestion and pulmon danita edema showing as ground glass opacities on chest x-ray and CT scan of th e chest. We will get a chest x-ray in the morning. 2. Obstructive sleep apnea. The patient is on Bi PAP, also for obesity hypoventilation. 3. Morbid obesity. The patient has been encourag ed to lose weight. 4. Left lower lobe infiltrate consistent with pn eumonia. He completed treatment with cefepime. 5. Altered mental status post subdural h ematoma. The patient is every day more alert. 6. History of diabetes. The patient is under con trol at the present time. 7. Cirrhosis. The patient had an ultrasound of t he right upper quadrant with elastography and he was found to have stiffness of the liver suggestive of cirrhosis, hopefully it is f atty liver and the patient could improve with time. The patient is seriously ill and he will be followed very closely in the unit. Dictated By: River Issa MD WT: PN:S.JEANNETTE/SRINIVAS/NTS Conf#: [id number]/DID#: [id number] Authenticated by Estevan Issa MD On 12/05/2020 12:28:25 PM Electronically Signed by River Issa MD on at 1228 PATIENT NAME: ELENO GROSSMAN JR [facility] #: [id number] 2020-12-05 05:16:00-00:00 [id number] [facility] [place] [id number] PATIENT NAME: ELENO GROSSMAN JR ADMIT DATE: ACCOUNT NO: [id number] ROOM NO: [facility] AGE: 70 REPORT TYPE: PROGRESS NOTE SEX: M ADMITTING PHYSICIAN:Guy Marcial MD ATTENDING PHYSICIAN:Guy Marcial MD DATE: INFECTIOUS DISEASE PROGRESS NOTE SUBJECTIVE: The patient's mental status overall has not changed. All notes have been reviewed, read, acknowledged and under stood. Appears to be comfortable at present time, eating and drinking without difficulty. More alert and attentive. Nothing to suggest new infectious disease problems at present time. We will repeat blood, urine, and wound cultures to make sure we are ahead of primary infection. No new secondary ones have developed. Nurses note no significant issues from infectious disease stand point through the evening. Remains on antibiotic holiday at this juncture. OBJECTIVE: VITAL SIGNS: Temperature is 98 degrees, blood pr essure 125/82, pulse 78 per minute and regular, respirations are 18 per yumiko te. GENERAL: He is a well-developed, well-no urished man, who at present time is in no acute distress. SKIN: No change in wounds. NODES: None were palpable. HEENT: Has not changed. NECK: Supple. LUNGS: Scattered crackles, but fairly clear. HEART: Regular rhythm without murmurs, gallops, or rubs. ABDOMEN: Soft, nontender. No hepatosplenomegaly. EXTREMITIES: No clubbing, cyanosis, or significa nt edema. NEUROLOGIC: The patient is at baseline. LABORATORY DATA AVAILABLE: Has been reviewed. IMPRESSION: Stable from infectious diseases kevin dpoint, no new major issues noted. RECOMMENDATIONS: Blood and urine cultures will b e repeated today. Remains on antibiotic holiday. We will not intervene with a ntibiotics unless definable infection is noted. We will adjust antimicrobial agents at that juncture as data and clinical circumstances dictate. Dictated By: Ismael Julio Jr, MD WT: PN:S.HIM/GATJO/NTS PATIENT NAME: ELENO GROSSMAN JR ACCONT #: [id number] Conf#: [id number]/DID#: [id number] Authenticated by Ismael Julio MD On 01:26:44 PM at 1327 PATIENT NAME: ELENO GROSSMAN JR ACCONT #: [id number] 2020-12-04 12:46:00-00:00 [id number] [facility] [address] [address] PATIENT NAME: ELENO GROSSMAN JR ADMIT DATE: ACCOUNT NO: [id number] ROOM NO: S.474 AGE: 70 REPORT TYPE: PROGRESS NOTE SEX: M ADMITTING PHYSICIAN:Guy Marcial MD ATTENDING PHYSICIAN:Guy Marcial MD DATE: 12/04/2020 PROGRESS NOTE SUBJECTIVE: Events noted. Discussed with nursing staff. Doing about the same. Awake, in no distress. OBJECTIVE: VITAL SIGNS: Blood pressure 120/60, heart rate 7 0, and temperature 36.7. HEENT: Head is normocephalic. NECK: Supple. CHEST AND LUNGS: Bilateral breathing sounds. HEART: Normal S1, S2. ABDOMEN: Soft. EXTREMITIES: No edema. ASSESSMENT AND PLAN: 1. Subdural hematoma. CT of the head noted. Neur ology following the patient. Continue the patient on seizure precaution. 2. Respiratory failure, improving. Armida nue the patient on BiPAP at nighttime. Continue the patient on supplemental oxygen. Dr Rahul Issa, pulmonary service is following the patient. 3. Diabetes mellitus type 2. Continue the patien t on Lantus 10 units at nighttime and sliding scale. 4. Hypertension, controlled. Continue th e patient on Cozaar 50 mg twice daily. Dictated By: Guy Marcial MD WT: PN:SNATANAEL/CLARISSA. Conf#: [id number]/DID#: [id number] Authenticated by Guy Marcial MD On 12/05/2020 0 3:41:22 PM Electronically Signed by Guy Marcial MD on at 1541 PATIENT NAME: ELENO GROSSMAN Yoni FRANKLIN ACCONT #: [id number] 2020-12-04 04:36:00-00:00 [id number] [facility] [place] [address] PATIENT NAME: JOHANNAELENORenetta Vallejo JR ADMIT DATE: ACCOUNT NO: [id number] ROOM NO: S.474 AGE: 70 REPORT TYPE: PROGRESS NOTE SEX: M ADMITTING PHYSICIAN:Guy Marcial MD ATTENDING PHYSICIAN:Guy Marcial MD DATE: 12/03/2020 NEUROLOGY PROGRESS NOTE SUBJECTIVE: The patient is seen and examined in his room. He is feeling better. OBJECTIVE: VITAL SIGNS: Blood pressure and heart rate are s table. Awake and appropriate. NEUROLOGIC: Speech is normal. Cranial nerves are normal. Moving both upper and both lower extremities fairly well and stren gth is 4 to 5/5. LABORATORY DATA: Reviewed. MEDICATIONS: Reviewed. ASSESSMENT AND PLAN: He is a 70-year-old patient with right subdural hematoma and post-surgery he is doing much better. Contin ue present treatment. Dictated By: Garrick Xiao WT: PN:S.JEANNETTE/UNNOU/NTS Conf#: [id number]/DID#: [id number] Authenticated by Garrick Thompson MD On 09:31:51 PM Electronically Signed by Garrick Thompson on at 2132 PATIENT NAME: ELENO GROSSMAN JR ACCONT #: [id number] 2020-12-04 04:34:00-00:00 [id number] [place] [address] PATIENT NAME: ELENO GROSSMAN JR ADMIT DATE: 11/22/20 ACCOUNT NO: [id number] ROOM NO: S.474 AGE: 70 REPORT TYPE: PROGRESS NOTE SEX: M ADMITTING PHYSICIAN:Guy Marcial MD ATTENDING PHYSICIAN:Guy Marcial MD DATE: INFECTIOUS DISEASE PROGRESS NOTE SUBJECTIVE: The patient is afebrile and stable on antibiotic holiday. Continue to follow at present time. High risk for nosocom ial infection, so following closely, but so far so good on antibioti c holiday. We will continue to follow. No antibiotic adjustments are indicated at this juncture. Dictated By: Ismael Julio Jr, MD WT: PN:S.JEANNETTE/SELINA/NTS Conf#: [id number]/DID#: [id number] Authenticated by Ismael Julio MD On 01:26:43 PM at 1327 PATIENT NAME: ELENO GROSSMAN JR ACCONT #: [id number] 2020-12-03 20:46:00-00:00 [id number] [facility] [place] [id number] PATIENT NAME: ELENO GROSSMAN JR ADMIT DATE: ACCOUNT NO: [id number] ROOM NO: [facility] AGE: 70 REPORT TYPE: PROGRESS NOTE SEX: M ADMITTING PHYSICIAN:Guy Marcial MD ATTENDING PHYSICIAN:Guy Marcial MD DATE: 12/02/2020 SUBJECTIVE: Events noted. Discussed with nursing staff. Doing about the same. Seen by psychiatry and started on Ativa n p.r.n. for depression. No new issues reported overnight. OBJECTIVE: VITAL SIGNS: Blood pressure 112/67, heart rate 8 0, temperature ____. HEENT: Head is normocephalic. CHEST AND LUNGS: Bilateral breathing sounds. HEART: Normal S1, S2. ABDOMEN: Soft. EXTREMITIES: No edema. PERTINENT FINDINGS: Hemoglobin 9.4. WBC 8.3. Potassium 4.8. ASSESSMENT AND PLAN: 1. Major depressive disorder. The patient is fol lowed by psychiatry. Hallucination noted. The patient is started on A tivan p.r.n. Remains on Effexor. 2. Hypertension, controlled. Dr. Mcmanus , cardiology is following the patient, remains on atorvastatin. 3. Respiratory failure, improved. Contin ue the patient on supplemental oxygen. 4. Subdural hematoma. CT of the head noted. MRI of the brain without contrast will be obtained. Dictated By: Gyu Marcial MD WT: PN:SNATANAEL/CLARISSA. Conf#: [id number]/DID#: [id number] Authenticated by Guy Marcial MD On 12/05/2020 0 3:41:22 PM PATIENT NAME: ELENO GROSSMAN JR ACCONT #: [id number] Electronically Signed by Guy Marcial MD on at 1541 PATIENT NAME: ELENO GROSSMAN JR ACCONT #: [id number] 2020-12-03 04:45:00-00:00 [id number] [address] PATIENT NAME: ELENO GROSSMAN JR ADMIT DATE: ACCOUNT NO: [id number] ROOM NO: S.[facility] AGE: 70 REPORT TYPE: PROGRESS NOTE SEX: M ADMITTING PHYSICIAN:Guy Marcial MD ATTENDING PHYSICIAN:Guy Marcial MD DATE: INFECTIOUS DISEASE PROGRESS NOTE SUBJECTIVE: The patient's mental status overall has not changed. No fevers, chills, sweats or major issues noted. He is afebrile and stable, on antibiotic holiday. We will continue to follow due to risk of active infectious disease process, but so far so good on antibioti c holiday. We will continue to follow. Dictated By: Ismael Julio Jr, MD WT: PN:CHEO/SELINA/BRAYDEN Conf#: [id number]/DID#: [id number] Authenticated by Ismael Julio MD On 01:26:43 PM at 1327 PATIENT NAME: ELENO GROSSMAN JR ACCONT #: [id number] 2020-12-02 17:03:00-00:00 [id number] [address] PATIENT NAME: ELENO GROSSMAN JR ADMIT DATE: ACCOUNT NO: [id number] ROOM NO: S.[facility] AGE: 70 REPORT TYPE: PROGRESS NOTE SEX: M ADMITTING PHYSICIAN:Guy Marcial MD ATTENDING PHYSICIAN:Guy Marcial MD DATE: 12/02/2020 SUBJECTIVE: Events noted. Doing about the same. Awake. No fever, no nausea. No other issues reported. OBJECTIVE: VITAL SIGNS: Blood pressure 110/70, heart rate i s 72, and temperature 37.8. HEENT: Head is normocephalic. CHEST AND LUNGS: Bilateral breathing sounds. HEART: S1, S2. ABDOMEN: Soft. EXTREMITIES: No edema. PERTINENT FINDINGS: Potassium 4.8. Creatinine 0.8. Hemoglobin 9.4. CT of the head without contrast showed postopera tive changes. CT of the head noted. ASSESSMENT AND PLAN: 1. Subdural hematoma, CT noted. I will obtain an MRI of the brain without contrast. Neurology service, Dr. Thompson is foll owing the patient. 2. Respiratory failure, doing better on BiPAP at nighttime, on supplemental oxygen during the day. Dr. Issa, pulmonary serv ice is following the patient. 3. Debility. PT, OT, fall precaution. Continue p hysical therapy. 4. Hypertension, controlled. Remains on losartan 50 mg twice a day, amlodipine 10 mg daily. Dictated By: Guy Marcial MD WT: PN:S.JEANNETTE/CLARISSA.Donna/BRAYDEN Conf#: [id number]/DID#: [id number] Authenticated by Guy Marcial MD On 12/05/2020 0 3:41:21 PM PATIENT NAME: ELENO GROSSMAN Yoni FRANKLIN ACCONT #: [id number] Electronically Signed by Guy Marcial MD on at 1541 PATIENT NAME: ELENO GROSSMAN Yoni FRANKLIN ACCONT #: [id number] 2020-12-02 04:53:00-00:00 [id number] [facility] [place] [address] PATIENT NAME: ELENO GROSSMAN ADMIT DATE: ACCOUNT NO: [id number] ROOM NO: S.[facility] AGE: 70 REPORT TYPE: PROGRESS NOTE SEX: M ADMITTING PHYSICIAN:Guy Marcial MD ATTENDING PHYSICIAN:Guy Marcial MD DATE: INFECTIOUS DISEASE PROGRESS NOTE SUBJECTIVE: The patient appears to be comfortabl e at present time. All notes have been reviewed from team, read, acknowledged and understood. Nothing to suggest an active infectious disease pro blems at present time. Very high risk, so following closely, so far so good. Discussed in detail with Dr. Marcial as well as Dr. Issa. All notes have been reviewed, read, acknowledged and understood. Discussed in detail with nursing per trang at the bedside in evening shift, no known untoward issues from inf ectious disease standpoint of concern. OBJECTIVE: VITAL SIGNS: Temperature 97 degrees, blood pressure 122/74, pulse 72 per minute and regular, respirations 17 per minute. GENERAL: He is a well-developed, well-no urished man, who at present time is in no acute distress. SKIN: No new visible lesions. NODES: None were palpable. HEENT: Has not changed. NECK: Supple. LUNGS: Scattered crackles, fairly clear. HEART: Regular rhythm without murmurs, gallops, or rubs. ABDOMEN: Soft, nontender. No hepatosplenomegaly. EXTREMITIES: No clubbing, cyanosis, or significa nt edema. NEUROLOGIC: The patient is at baseline. LABORATORY DATA AVAILABLE: Has been reviewed. IMPRESSION: Stable from infectious diseases kevin dpoint, no new major issues noted. RECOMMENDATIONS: Continuing as is for no w. No antibiotic changes are indicated at present time. Remain vigilant for further nos ocomial issues and adjust interventions as data and clinical circumstances dictate. Dictated By: Ismael Julio Jr, MD WT: PN:S.JEANNETTE/SELINA/BRAYDEN PATIENT NAME: ELENO GROSSMAN JR ACCONT #: [id number] Conf#: [id number]/DID#: [id number] Authenticated by Ismael Julio MD On 12:45:40 PM at 1246 PATIENT NAME: ELENO GROSSMAN JR ACCONT #: [id number] 2020-12-02 02:07:00-00:00 [id number] [facility] [address] [place] [address] PATIENT NAME: ELENO GROSSMAN JR ADMIT DATE: ACCOUNT NO: [id number] ROOM NO: S.[facility] AGE: 70 REPORT TYPE: PROGRESS NOTE SEX: M ADMITTING PHYSICIAN:Guy Marcial MD ATTENDING PHYSICIAN:Guy Marcial MD DATE: 12/01/2020 PROGRESS NOTE SUBJECTIVE: The patient seen and examined in his room. Events reviewed. OBJECTIVE: VITAL SIGNS: Blood pressure and heart rate are s table. Respiration is normal. GENERAL: He is awake and feeling better. Speech is normal. NEUROLOGIC: Cranial nerves are normal. Moving al l extremities. LABORATORY DATA: Reviewed. MEDICATIONS: Reviewed. ASSESSMENT AND PLAN: He is 70-year-old patient w ith traumatic right subdural hematoma, treated with craniectomy and evacuatio n. He also has diabetic neuropathy and seizures. He is on Dilantin. No n ew seizures. Doing better. Continue present treatment. Dictated By: Garrick Xiao WT: PN:S.JEANNETTE/RIKKI/BRAYDEN Conf#: [id number]/DID#: [id number] Authenticated by Garrick Thompson MD On 021 10:04:55 PM Electronically Signed by Garrick Thompson on at 2205 PATIENT NAME: ELENO GROSSMAN JR ACCONT #: [id number] 2020-12-01 19:11:00-00:00 [id number] [facility] [address] [address] PATIENT NAME: ELENO GROSSMAN JR ADMIT DATE: ACCOUNT NO: [id number] ROOM NO: [facility] AGE: 70 REPORT TYPE: PROGRESS NOTE SEX: M ADMITTING PHYSICIAN:Guy Marcial MD ATTENDING PHYSICIAN:Guy Marcial MD DATE: 12/01/2020 PROGRESS NOTE SUBJECTIVE: Events noted, doing better, awake an d responsive, transferred to floor. No chest pain, no nausea. Complaining of depression. I offered him a psychiatric consultation and he is in agreeable. OBJECTIVE: VITAL SIGNS: Blood pressure 140/60, heart rate o f 80, and temperature 36.7, respiratory rate 17. HEENT: Head is normocephalic. CHEST AND LUNGS: Bilateral breathing sounds. CARDIOVASCULAR: S1, S2. ABDOMEN: Soft. EXTREMITIES: No edema. ASSESSMENT AND PLAN: 1. Subdural hematoma ____ order a CT of the head to follow subdural hematoma. ____ consultation with Dr. Morocho will be mónica luque 2. Respiratory failure. The patient is toleratin g BiPAP at nighttime. Remains on supplemental oxygen during the day. Dr. Issa , pulmonary service is following the patient. 3. Hypertension, better controlled with losartan and amlodipine. Dr. Mcmanus, cardiology following the patient. 4. Debility. PT, OT, fall precaution. Dictated By: Guy Marcial MD WT: PN:S.JEANNETTE/CLARISSA./NTS Conf#: [id number]/DID#: [id number] Authenticated by Guy Marcial MD On 12/02/2020 0 4:31:14 PM Electronically Signed by Guy Marcial MD on at 1631 PATIENT NAME: LEENO GROSSMAN JR ACCONT #: [id number] 2020-12-01 04:28:00-00:00 [id number] [facility] [place] [address] PATIENT NAME: ELENO GROSSMAN JR ADMIT DATE: ACCOUNT NO: [id number] ROOM NO: [facility] AGE: 70 REPORT TYPE: PROGRESS NOTE SEX: M ADMITTING PHYSICIAN:Guy Marcial MD ATTENDING PHYSICIAN:Guy Marcial MD DATE: INFECTIOUS DISEASE PROGRESS NOTE SUBJECTIVE: The patient's mental status overall about the same. He is overall better, getting stronger. No fevers, chills, swe ats, or other issues noted. Remains on antibiotic holiday. High risk for nosocomial infections, but so far so good on antibiotic holiday. We will continue to follow closely. No antibiotics are warranted unless definable infec tion is noted. We will do cultures periodically to make sure we are ahead of any developing infectious disease related issues. Discussed in detail with Dr. Marcial as well as Dr. sIsa. Nursing personnel on evening shift have n ot noted any major issues. OBJECTIVE: VITAL SIGNS: Temperature is 97 degrees, blood pr essure 124/65, pulse 98 per minute and regular, respirations are 18 per yumiko te. GENERAL: He is a well-developed, well-no urished man, who at present time is in no acute distress. SKIN: No new visible lesions. NODES: None were palpable. HEENT: Has not changed. NECK: Supple. LUNGS: Fairly clear. HEART: Regular rhythm without murmurs, gallops, or rubs. ABDOMEN: Soft, nontender. No hepatosplenomegaly. EXTREMITIES: No clubbing, cyanosis, or significa nt edema. NEUROLOGIC: The patient is at baseline. LABORATORY DATA AVAILABLE: Has been reviewed. IMPRESSION: [facility], so far so good on antibiotic holiday. RECOMMENDATIONS: We will continue as is for now. Remain vigilant for nosocomial infection. Contin ue present supportive care and adjust antimicrobial agents and interventions as data and clinical ci rcumstances dictate. Dictated By: Ismael Julio Jr, MD WT: PN:SNATANAEL/SELINA/BRAYDEN PATIENT NAME: DANICA GROSSMANRenetta Vallejo JR ACCONT #: [id number] Conf#: [id number]/DID#: [id number] Authenticated by Ismael Julio MD On 01:05:29 PM at 1305 PATIENT NAME: DANICA GROSSMANRenetta Vallejo JR ACCONT #: [id number] 2020-11-30 13:37:00-00:00 [phone] [facility] [address] [address] PATIENT NAME: DANICA GROSSMANRenetta Vallejo JR ADMIT DATE: ACCOUNT NO: [id number] ROOM NO: S.[facility] AGE: 70 REPORT TYPE: PROGRESS NOTE SEX: M ADMITTING PHYSICIAN:Guy Marcial MD ATTENDING PHYSICIAN:Guy Marcial MD DATE: 11/30/2020 PROGRESS NOTE SUBJECTIVE: Events noted and doing well, working with therapist. No chest pain, no nausea, no other issues reported over[facility]m hospital[facility]. Discussed with Dr. Mcmanus. OBJECTIVE: VITAL SIGNS: Blood pressure 170/70, heart rate o f 70, temperature 97.9. HEENT: Head is normocephalic. CHEST AND LUNGS: Bilateral breathing sounds. CARDIOVASCULAR: S1, S2. ABDOMEN: Soft. EXTREMITIES: No edema. PERTINENT FINDINGS: 1. Potassium 4.5. 2. Hemoglobin is 9.5. ASSESSMENT AND PLAN: 1. Acute hypoxemic respiratory failure, miguelangel vallejo, remains on BiPAP at nighttime. Dr. Issa, pulmonary service is follo wing the patient. 2. Hypertension. Continue the patient on hydrala zine 50 mg every 6 hours. Continue the patient on losartan [address] Rahul Mcmanus, cardiology is following the patient. 3. Subdural hematoma, improving. 4. Left sided weakness, has significantl y improved. The patient is in physical therapy. 5. Chronic kidney disease. Renal function is sta ble. Adjust the losartan, change to 50 mg twice a day. Dictated By: Guy Marcial MD WT: PN:SNATANAEL/CLARISSA.Donna/BRAYDEN Conf#: [id number]/DID#: [id number] PATIENT NAME: ELENO GROSSMAN JR ACCONT #: [id number] Authenticated by Guy Marcial MD On 11/30/2020 0 4:35:54 PM Electronically Signed by Guy Marcial MD on at 1636 PATIENT NAME: ELENO GROSSMAN JR ACCONT #: [id number] 2020-11-30 04:59:00-00:00 [phone] [facility] [place] [address] PATIENT NAME: ELENO GROSSMAN JR ADMIT DATE: ACCOUNT NO: [id number] ROOM NO: S.[facility] AGE: 70 REPORT TYPE: PROGRESS NOTE SEX: M ADMITTING PHYSICIAN:Guy Marcial MD ATTENDING PHYSICIAN:uGy Marcial MD DATE: 11/29/2020 PROGRESS NOTE SUBJECTIVE: The patient is seen in his room. No new events. OBJECTIVE: GENERAL: His general condition is good. VITAL SIGNS: Stable. NEUROLOGIC: He is drowsy, but arousable. Moves r ight side better than left side. LABORATORY DATA: Reviewed. MEDICATIONS: Reviewed. ASSESSMENT AND PLAN: He is a 70-year-old patient who had traumatic subdural hematoma over the right hemisphere associated wi th left hemiparesis. He underwent craniectomy and evacuation. He is sarath ng slow improvement. He also developed seizures and is on Dilantin. Continue present treatment. Dictated By: Garrick Xiao WT: PN:S.JEANNETTE/RIKKI/BRAYDEN Conf#: [id number]/DID#: [id number] Authenticated by Garrick Thompson MD On 021 11:09:44 PM Electronically Signed by Garrick Thompson on at 2310 PATIENT NAME: ELENO GROSSMAN JR ACCONT #: [id number] 2020-11-30 04:22:00-00:00 [id number] [facility] [place] [address] PATIENT NAME: ELENO GROSSMAN JR ADMIT DATE: ACCOUNT NO: [id number] ROOM NO: S.[facility] AGE: 70 REPORT TYPE: PROGRESS NOTE SEX: M ADMITTING PHYSICIAN:Guy Marcial MD ATTENDING PHYSICIAN:Guy Marcial MD DATE: INFECTIOUS DISEASE PROGRESS NOTE SUBJECTIVE: The patient's mental status overall has not changed. Nurses indicates he is okay. All notes have been review ed, read, acknowledged and understood. All repeat cultures so far are negat kian. Remains on antibiotic holiday unless definable infection is noted. Dis cussed with nursing personnel at the bedside in evening shift, no untoward iss ues from infectious disease standpoint through the evening. Discussed in det ail also with Dr. Marcial as well as Dr. Issa. High risk for infecti ous disease decompensation, but so far so good on antibiotic holiday. OBJECTIVE: VITAL SIGNS: Temperature 98 degrees, blood pressure 142/81, pulse 80 per minute and regular, respirations are 25 per minute. GENERAL: He is a well-developed, well-nourished man, in mild respiratory distress. SKIN: No new visible lesions. NODES: None were palpable. HEENT: Has not changed. NECK: Supple. LUNGS: Decreased breath sounds in the bases. HEART: Regular rhythm without murmurs, gallops, or rubs. ABDOMEN: Soft, nontender. No hepatosplenomegaly. EXTREMITIES: No clubbing, cyanosis, or significa nt edema. NEUROLOGIC: The patient is at baseline. LABORATORY DATA AVAILABLE: Has been reviewed. IMPRESSION: Stable from infectious disea ses standpoint, on antibiotic holiday. RECOMMENDATIONS: Continue as is for now. No anti biotic changes are indicated at present time. Remain vigilant for further nos ocomial issues and adjust interventions as data and clinical circumstances dictate. Dictated By: Ismael Julio Jr, MD WT: PN:SNATANAEL/SELINA/BRAYDEN PATIENT NAME: DANICA GROSSMANRenetta Vallejo JR ACCONT #: [id number] Conf#: [id number]/DID#: [id number] Authenticated by Ismael Julio MD On 02:30:08 PM at 1430 PATIENT NAME: ELENO GROSSMAN Yoni FRANKLIN ACCONT #: [id number] 2020-11-29 16:18:00-00:00 [id number] [facility] [place] [address] PATIENT NAME: DANICA GROSSMANRenetta Vallejo JR ADMIT DATE: ACCOUNT NO: [id number] ROOM NO: S.351 AGE: 70 REPORT TYPE: PROGRESS NOTE SEX: M ADMITTING PHYSICIAN:Guy Marcial MD ATTENDING PHYSICIAN:Guy Marcial MD DATE: 11/29/2020 SUBJECTIVE: Events noted. I discussed with [facility] staff. Doing better overall. No chest pain, no nausea, no other issu es reported overnight. Discussed with his . OBJECTIVE: VITAL SIGNS: Blood pressure 140/80, heart rate o f 70, and temperature 98.1. HEENT: Head is normocephalic. CHEST AND LUNGS: Bilateral breathing sounds. CARDIOVASCULAR: S1, S2. ABDOMEN: Soft. EXTREMITIES: No edema. PERTINENT FINDINGS: Chest x-ray showed atelectas is. ASSESSMENT AND PLAN: 1. Acute hypoxemic respiratory failure, doing be tter. BiPAP at nighttime. Dr. Issa, pulmonary service is following the patien t. 2. Left lower aspiration pneumonia, complete cou rse of treatment. Dr. Ismael Julio, infectious disease following the patient. Culture report noted. 3. Obesity. Weight loss is stressed with him, __ __ diet. 4. Congestive heart failure. Machine Etcher, Dr. Asher fernando following the patient. Continue the patient on diuresis. Overall stable . Continue the patient on amlodipine. Dictated By: Guy Marcial MD WT: PN:SNATANAEL/CLARISSA. Conf#: [id number]/DID#: [id number] Authenticated by Guy Marcial MD On 11/30/2020 1 1:07:32 AM Electronically Signed by Guy Marcial MD on at 1107 PATIENT NAME: ELENO GROSSMAN JR ACCONT #: [id number] 2020-11-29 04:28:00-00:00 3237-0730 [place] [address] PATIENT NAME: ELENO GROSSMAN JR ADMIT DATE: ACCOUNT NO: [id number] ROOM NO: [facility] AGE: 70 REPORT TYPE: PROGRESS NOTE SEX: M ADMITTING PHYSICIAN:Guy Marcial MD ATTENDING PHYSICIAN:Guy Marcial MD DATE: INFECTIOUS DISEASE PROGRESS NOTE SUBJECTIVE: The patient appears to be co mfortable at present time. Nurses note no other issues from disease standpoint through the evening. All notes from team reviewed, read, acknowledged and un derstood. Discussed in detail with Dr. Marcial as well as Dr. Issa. Remains on antibiot ic holiday. Repeat blood and urine cultures so far are ne gative. Scans do not suggest any internal infection at present time. No specific other issue from infectious diseases standpoint of concern. Very high risk for infectious disease d ecompensation, so following closely, but so far so good on antibiotic holida y. OBJECTIVE: VITAL SIGNS: Temperature is 97 degrees, blood pr essure 140/74, pulse 79 per minute and regular, respirations are 22 per yumiko te. GENERAL: He is a well-developed, fairly well-nourished man who at present time is in no acute distress. SKIN: No new visible lesions. NODES: None were palpable. HEENT: Has not changed. NECK: Supple without thyromegaly or lymphadenopa thy. LUNGS: Fairly clear to auscultation and percussi on. HEART: Regular rhythm without murmurs, gallops, or rubs. ABDOMEN: Soft, nontender. No hepatosplenomegaly. EXTREMITIES: No clubbing, cyanosis, or significa nt edema. NEUROLOGIC: No specific new focal findings. LABORATORY DATA AVAILABLE: Has been reviewed. IMPRESSION: Stable from infectious diseases kevin dpoint, no new major issues noted. RECOMMENDATIONS: Continuing as is on antibiotic holiday. High risk for decompensation, following closely. We will adjus t antimicrobial interventions as data and clinical circumstances dictate. Dictated By: Ismael Julio Jr, MD WT: PN:SNATANAEL/SELINA/BRAYDEN PATIENT NAME: DANICA GROSSMANRenetta Vallejo JR ACCONT #: [id number] Conf#: [id number]/DID#: [id number] Authenticated by Ismael Julio MD On 01:15:59 PM at 1316 PATIENT NAME: DANICA GROSSMANRenetta Vallejo JR ACCONT #: [id number] 2020-11-28 16:34:00-00:00 [id number] [facility] [place] [address] PATIENT NAME: JOHANNAELENORenetta Vallejo JR ADMIT DATE: ACCOUNT NO: [id number] ROOM NO: 351 AGE: 70 REPORT TYPE: PROGRESS NOTE SEX: M ADMITTING PHYSICIAN:Guy Marcial MD ATTENDING PHYSICIAN:Guy Marcial MD DATE: 11/28/2020 PROGRESS NOTE SUBJECTIVE: Events noted, doing better, moving t he left upper extremity and lower extremity. No chest pain, no nausea. OBJECTIVE: VITAL SIGNS: Blood pressure 150/60, heart rate 8 0, temperature 98.8. HEENT: Head is normocephalic. CHEST AND LUNGS: Bilateral breathing sounds. CARDIOVASCULAR: S1, S2. ABDOMEN: Soft. EXTREMITIES: No edema. PERTINENT FINDINGS: Potassium 4.5. ASSESSMENT AND PLAN: 1. Respiratory failure, improving. Armida nue the patient on BiPAP at nighttime. He is on supplemental oxygen. Dr. Issa, pulmon danita service, is following the patient. 2. Subdural hematoma. He is seeing physical medicine physician apy. Left-sided weakness has improved. 3. Obesity. Weight loss discussed with him. Advi sed him not to eat junk or fast foods. Discussed with in detail. 4. Pneumonia, treated, stable. Dr. Isamel Julio, is following the patient. Culture report noted. Dictated By: Guy Marcial MD WT: PN:S.JEANNETTE/CLARISSA./ Conf#: [id number]/DID#: [id number] Authenticated by Guy Marcial MD On 11/29/2020 0 1:52:19 PM PATIENT NAME: ELENO GROSSMAN ACCONT #: [id number] Electronically Signed by Guy Marcial MD on at 1352 PATIENT NAME: ELENO GROSSMAN ACCONT #: [id number] 2020-11-28 05:12:00-00:00 [id number] [facility] [place] [address] PATIENT NAME: ELENO GROSSMAN JR ADMIT DATE: ACCOUNT NO: [id number] ROOM NO: S.[facility] AGE: 70 REPORT TYPE: PROGRESS NOTE SEX: M ADMITTING PHYSICIAN:Guy Marcial MD ATTENDING PHYSICIAN:Guy Marcial MD DATE: 11/27/2020 PROGRESS NOTE SUBJECTIVE: Events reviewed. OBJECTIVE: VITAL SIGNS: Blood pressure and heart rate are s table. GENERAL: He is breathing on his own. In no distr ess. He is drowsy. NEUROLOGIC: Opens his eyes. Moving both upper an d lower extremities, but weak on his left upper and lower. LABORATORY DATA AND MEDICATIONS: Reviewed. ASSESSMENT AND PLAN: He is a 70-year-old patient who is status post traumatic subdural hematoma associated with left hemiparesis and status post craniectomy. He is mildly encephalopathic with mild left irene paresis. Overall, neurologically stable. Continue present treatmen t. Dictated By: Garrick Xiao WT: PN:S.JEANNETTE/RIKKI/BRAYDEN Conf#: [id number]/DID#: [id number] Authenticated by Garrick Thompson MD On 021 12:03:44 AM Electronically Signed by Garrick Thompson on at 0003 PATIENT NAME: ELENO GROSSMAN JR ACCONT #: [id number] 2020-11-28 04:37:00-00:00 [id number] [facility] [place] [address] PATIENT NAME: ELENO GROSSMAN JR ADMIT DATE: ACCOUNT NO: [id number] ROOM NO: S.351 AGE: 70 REPORT TYPE: PROGRESS NOTE SEX: M ADMITTING PHYSICIAN:Guy Marcial MD ATTENDING PHYSICIAN:Guy Marcial MD DATE: INFECTIOUS DISEASE PROGRESS NOTE SUBJECTIVE: The mental status overall has not ch anged. All notes have been reviewed, read, acknowledged, and understood. Al l repeat cultures so far are negative. No specific other new issues from infe ctious disease standpoint at this juncture. Tolerating antibiotic hol iday so far without difficulty. Repeat cultures so far are negative. I am going to foll ow closely for infectious disease deterioration, but so far so good on ant ibiotic holiday. We will continue to observe for now. No specific issues from infectious disease standpoint through the evening have been delinea temi. All notes have been reviewed, read, acknowledged, and understood. OBJECTIVE: VITAL SIGNS: Temperature is 98 degrees, blood pr essure 156/74, pulse 88 per minute and regular, respirations are 16 per yumiko te. GENERAL: He is a well-developed, well-no urished man, who at present time is in no acute distress. SKIN: No visible lesions. NODES: None were palpable. HEENT: Has not changed. NECK: Supple. LUNGS: Scattered crackles and rhonchi. HEART: Regular rhythm without murmurs, gallops, or rubs. ABDOMEN: Soft, nontender. No hepatosplenomegaly. EXTREMITIES: No clubbing, cyanosis, or significa nt edema. NEUROLOGIC: The patient is at baseline. LABORATORY DATA AVAILABLE: Has been reviewed. IMPRESSION: Overall stable from infectious disea ses standpoint, no new major issues noted. RECOMMENDATIONS: Continuing as is for no w. No antibiotic changes are indicated at present time. Remain vigilant for further nos ocomial issues and adjust interventions further as data and clinical circu mstances dictate. Dictated By: Ismael Julio Jr, MD WT: PN:S.HIM/SELINA/NTS PATIENT NAME: DANICA GROSSMANRenetta Vallejo JR ACCONT #: [id number] Conf#: [id number]/DID#: [id number] Authenticated by Ismael Julio MD On 01:15:58 PM at 1316 PATIENT NAME: ELENO GROSSAMN Yoni FRANKLIN ACCONT #: [id number] 2020-11-27 12:52:00-00:00 [id number] [facility] [place] [address] PATIENT NAME: ELENO GROSSMAN ADMIT DATE: ACCOUNT NO: [id number] ROOM NO: S.[facility] AGE: 70 REPORT TYPE: PROGRESS NOTE SEX: M ADMITTING PHYSICIAN:Guy Marcial MD ATTENDING PHYSICIAN:Guy Marcial MD DATE: 11/27/2020 PROGRESS NOTE SUBJECTIVE: Events noted and doing about the ron e. Resting. No chest pain, no nausea. No other issues reported overnight. Disc ussed with his . OBJECTIVE: VITAL SIGNS: Blood pressure 160/60, heart rate o f 87, and temperature 97.8. HEENT: Head is normocephalic. CHEST AND LUNGS: Bilateral breathing sounds. HEART: Normal S1, S2. ABDOMEN: Soft. EXTREMITIES: No edema. PERTINENT FINDINGS: 1. Hemoglobin 9.5 2. Potassium 5.2. ASSESSMENT AND PLAN: 1. Subdural hematoma with left hemiparesis. Alin sam, seeing physical therapy. PT, OT following the patient. 2. Hypertension, controlled. Cardiology, Dr. Gagan meza consulted. Continue the patient on losartan 50 mg daily and amlodipine 1 0 mg daily. 3. Seizure, controlled. Continue the patient on Dilantin 100 three times a day. 4. Acute hypoxemic respiratory failure, BiPAP tr eatment at nighttime. Dr. Issa, pulmonary service is following the patien t. Continue the patient on supplemental oxygen, DuoNeb every 4 hours as nee ded. Dictated By: Guy Marcial MD WT: PN:S.JEANNETTE/CLARISSA.01/NTS Conf#: [id number]/DID#: [id number] Authenticated by Guy Marcial MD On 11/28/2020 0 2:13:28 PM PATIENT NAME: ELENO GROSSMAN ACCONT #: [id number] Electronically Signed by Guy Marcial MD on at 1413 PATIENT NAME: ELENO GROSSMAN ACCONT #: [id number] 2020-11-27 11:16:00-00:00 [id number] [facility] [place] [address] PATIENT NAME: ELENO GROSSMAN ADMIT DATE: ACCOUNT NO: [id number] ROOM NO: S[facility] AGE: 70 REPORT TYPE: PROGRESS NOTE SEX: M ADMITTING PHYSICIAN:Guy Marcial MD ATTENDING PHYSICIAN:Guy Marcial MD DATE: 11/27/2020 PULMONARY PROGRESS NOTE The patient was discussed with OK Tavares. SUBJECTIVE: The patient is a 70-year-old man wit h a history of seizures, on Dilantin; hypertension; and hyperlipidemia that on 11/11/2020, fell hitting his head for which he was taken, with an increasing headache and left-sided hemiparesis, to the hospital . The patient was found to have a subdural hematoma requiring evacuation and decompression secondary to a midline shift. The patient had to be intubated and mechanically amada tilated. The patient is now extubated. He has obstructive sleep apnea and he is on BiPAP. The patient was quite sleepy because he was only using the BiPAP at night and during the daytime, he was taking lots of naps. The patient has been placed now on BiPAP every time he sleeps and his mental status has i mproved. The patient also had an elevated ammonia level be ing treated with rifaximin and lactulose. He had an ultrasound of the abdomen with elastogra phy which was suggestive of cirrhosis. The patient may require to see a candles pourer. PHYSICAL EXAMINATION: VITAL SIGNS: He has a temperature of 97.8, heart rate of 70, respiratory rate of 20, blood pressure is 163/86 and his pulse ox imetry is 98% on room air. HEENT: Normocephalic, atraumatic. Pupils are equ al and reactive. NECK: Supple. There is no JVD. CHEST: Clear to auscultation. CARDIOVASCULAR: S1, S2. No murmurs, gallop, or r ub. ABDOMEN: Obese and nontender. GENITOURINARY: No CVA tenderness. EXTREMITIES: There is no clubbing, cyanosis, or edema. NEUROLOGIC: The patient is awake, alert, oriente d x3, and grossly nonfocal. LABORATORY DATA: He has a so dium of 138, potassium of 5.2, chloride of 107, CO2 is 25, glucose is 119, BUN is 17, creatinine is 0.9, total protein is 6.9, albumin is 3.9, calcium is 8.8, and bilirubin is 0.2. SGOT is 61, SGPT is 80, and alkaline phosphatase is 175. White count is 12.7 with hemoglobin and hematocrit of 9.5 and 28.9 with 561,000 platelets. ASA for chronic hepatitis C was nonreactive. DIAGNOSTIC IMPRESSION: 1. Respiratory failure with hypoxemia that has yoni sam. PATIENT NAME: ELENO GROSSMAN [facility] #: [id number] 2. Obstructive sleep apnea, on BiPAP every time he sleeps. 3. Left lower lobe infiltrat e consistent with pneumonia, treated with cefepime. 4. Mild vascular congestion on chest x-ray. The patient's chest is clear to auscultation today. 5. Altered mental status, which is multifactoria l secondary to subdural hematoma, hepatic encephalopathy. The patient wa s given rifaximin and lactulose. He is much more awake. The patient wo uld benefit from having a hepatology consult. He had an ultrasound of the right upper quadrant with elastography, which showed measures consistent w ith cirrhosis. 6. Obesity. The patient has been encouraged to l ose weight. 7. Diabetes. The patient is on Levemir and an in sulin sliding scale. 8. For peptic ulcer disease prophylaxis, he is o n Protonix. For deep venous thrombosis prophylaxis, he is on sequential comp ression devices. For depression, he is on Effexor. For seizure disord er, he is on primidone and Dilantin. Hypertension stubbs, he is on losartan, Norvasc, and propranolol. 9. Hyperkalemia. The patient will be getting Margot exalate today and if it persists or recurs, he has 2 drugs that can caus e hyperkalemia, which are losartan and propranolol and this may need to be changed. The patient will be followed closely. Dictated By: River Issa MD WT: PN:SNATANAEL/SRINIVAS/BRAYDEN Conf#: [id number]/DID#: [id number] Authenticated by Estevan Issa MD On 11/27/2020 12:05:28 PM Electronically Signed by River Issa MD on at 1205 PATIENT NAME: ELENO GROSSMAN ACCONT #: [id number] 2020-11-27 04:16:00-00:00 [id number] [facility] [address] [place] [address] PATIENT NAME: ELENO GROSSMAN JR ADMIT DATE: ACCOUNT NO: [id number] ROOM NO: [facility] AGE: 70 REPORT TYPE: PROGRESS NOTE SEX: M ADMITTING PHYSICIAN:Guy Marcial MD ATTENDING PHYSICIAN:Guy Marcial MD DATE: INFECTIOUS DISEASE PROGRESS NOTE SUBJECTIVE: The patient's mental status overall has not changed for the most part. All notes have been reviewed from team, re ad, acknowledged and understood. Discussed in detail with Dr. Marcial as well as Dr. Issa is on antibiotic holiday. Urine and blood cultures so far are negative. CT scan of the chest is not impressive as an active infecti on. Some mild patchy ground-glass densities are noted, which may be s uggestive of developing infiltrate on evaluation not clinically have pne nicolás is going to observe on antibiotic holiday at presen t time. Try to find the abdomen and pelvis CAT scan that I ordered also. All notes have been reviewe d, read, acknowledged and understood. Discussed in detail with [facility] personnel at bedside on the assistant casino shift manager, not noted any specific infectious disease problems delineated. OBJECTIVE: VITAL SIGNS: Temperature 98 degrees, blood pressure 163/86, pulse 68 per minute and regular, respirations are 24 per minute. GENERAL: He is a well-developed, well-nourished man, in mild respiratory distress. SKIN: No new visible lesions. NODES: None were palpable. HEENT: Has not changed. NECK: Supple. LUNGS: Decreased breath sounds in the bases. HEART: Regular rhythm without murmurs, gallops, or rubs. ABDOMEN: Soft, nontender. No hepatosplenomegaly, no rebound or rigidity. EXTREMITIES: No clubbing, cyanosis, or significa nt edema. NEUROLOGIC: The patient is at his baseline since I have seen him here. LABORATORY DATA AVAILABLE: Has been reviewed. IMPRESSION: Stable from infectious diseases kevin dpoint, no new major issues noted. RECOMMENDATIONS: Continuing as is for no w, on antibiotic holiday. Follow up on culture reports. Risk for deterioration from inf ectious diseases standpoint exist, so following closely. We will adjust anti microbial agents and interventions as data and clinical circumstances dictate. PATIENT NAME: ELENO GROSSMAN JR ACCONT #: [id number] Dictated By: Ismael Julio Jr, MD WT: PN:S.JEANNETTE/SELINA/BRAYDEN Conf#: [id number]/DID#: [id number] Authenticated by Ismael Julio MD On 01:15:57 PM at 1316 PATIENT NAME: ELENO GROSSMAN JR ACCONT #: [id number] 2020-11-26 13:41:00-00:00 [phone] [facility] [place] [address] PATIENT NAME: ELENO GROSSMAN JR ADMIT DATE: ACCOUNT NO: [id number] ROOM NO: [facility] AGE: 70 REPORT TYPE: PROGRESS NOTE SEX: M ADMITTING PHYSICIAN:Guy Marcial MD ATTENDING PHYSICIAN:Guy Marcial MD DATE: 11/26/2020 PROGRESS NOTE SUBJECTIVE: Events noted. Doing about the same, awake and responsive. No chest pain, no nausea, no other issues reported overnight. Discussed with Dr. Issa. OBJECTIVE: VITAL SIGNS: Blood pressure 140/70, heart rate o f 80, temperature 97.3, respiratory rate 17. HEENT: Head is normocephalic. NECK: Trached. CHEST AND LUNGS: Bilateral breathing sounds. CARDIOVASCULAR: S1, S2. ABDOMEN: Soft. EXTREMITIES: No edema. ASSESSMENT AND PLAN: 1. Subdural hematoma. The patient has left hemip aresis. Continue physical therapy. Neurology, Dr. Thompson, is following th e patient. 2. Coronary artery disease, stable. Continue the patient on amlodipine and atorvastatin. Dr. Mcmanus of cardiology input no temi. 3. Debility. PT, OT, fall precaution. PM and R s ervice is following the patient. 4. Diabetes mellitus type 2. Continue the patien t on Lantus 10 units at nighttime. The patient remains on sliding scale insulin. We will continue to monitor blood sugar a.c. and at bedtime. Dictated By: Guy Marcial MD WT: PN:SNATANAEL/CLARISSA. Conf#: [id number]/DID#: [id number] Authenticated by Guy Marcial MD On 11/28/2020 0 2:13:25 PM PATIENT NAME: ELENO GROSSMAN JR ACCONT #: [id number] Electronically Signed by Guy Marcial MD on at 1413 PATIENT NAME: ELENO GROSSMAN JR ACCONT #: [id number] 2020-11-26 10:43:00-00:00 [id number] [facility] [place] [address] PATIENT NAME: ELENO GROSSMAN JR ADMIT DATE: ACCOUNT NO: [id number] ROOM NO: [facility] AGE: 70 REPORT TYPE: PROGRESS NOTE SEX: M ADMITTING PHYSICIAN:Guy Marcial MD ATTENDING PHYSICIAN:Guy Marcial MD DATE: 11/26/2020 PULMONARY PROGRESS NOTE The patient was discussed with OK Tavares. SUBJECTIVE: The patient is a 70-year-old man wit h a history of seizures, on Dilantin, hypertension, hyperlipidemia that on 0 11/11/2020, fell, hitting his head and was taken to the hospital with increasi ng headaches and left-sided weakness. The patient was found to have a subdur al hematoma with a brain midline shift. He was taken to the OR for evacua tion and decompression. The patient was intubated and mechanically ventilate d. The patient is now extubated, but he has obstructive sleep apnea an d he is on BiPAP. The patient also had high ammonia. An ultrasound of the live r with elastography was done and the study was very sugge stive of cirrhosis. The patient is now on rifaximin and lactulose and he is much more awake. OBJECTIVE: VITAL SIGNS: He has a temperature of 98.4, heart rate is 80, respiratory rate is 20, blood pressure is 148/70 and he has a pul se oximetry of 98% on 3 L via nasal cannula. HEENT: Normocephalic and atraumatic. The patient has a scar from his craniotomy. Pupils are equal. NECK: Very short. Mallampati stage III in his th roat. CHEST: Clear to auscultation. CARDIOVASCULAR: S1, S2. No murmurs, gallop, or r ub. ABDOMEN: Bowel sounds are positive. Soft, obese, and nontender. GENITOURINARY: No CVA tenderness. EXTREMITIES: There is no clubbing, cyanosis, or edema. NEUROLOGIC: The patient is awake, alert, and he is oriented x3 at the present time. LABORATORY DATA: There is no lab data for today. DIAGNOSTIC IMPRESSION: 1. Respiratory failure with hypoxemia, on O2. Th e patient is taking deeper breaths. 2. Obstructive sleep apnea. The patient is on Bi PAP at night and he is doing better now that he is not sleep deprived. 3. Left lower lobe infiltrate consistent with pn eumonia, being treated with cefepime. PATIENT NAME: ELENO GROSSMAN JR ACCONT #: [id number] 4. Mild vascular congestion. 5. Altered mental status, multifactorial , including post-subdural hematoma and hepatic encephalopathy along with depredation of these things are being addressed and the patient is much more awake and alert. 6. Obesity. The patient has been encouraged to l ose weight. He may have a fatty liver causing the findings on his ultrasou nd. 7. Diabetes. The patient is on Levemir and insu bryce sliding scale. 8. Peptic ulcer disease prophylaxis. He is on Pr otonix. 9. Deep venous thrombosis prophylaxis. He is on sequential compression devices. 10. Depression. He is on Effexor. 11. Seizure disorder. The patient is on primidon e and Dilantin. 12. Hypertension. He is on Norvasc, losartan, an d propranolol. The patient is seriously ill and he will be followed very closely in the unit. Dictated By: River Issa MD WT: PN:S.JEANNETTE/SRINIVAS/BRAYDEN Conf#: [id number]/DID#: [id number] Authenticated by Estevan Issa MD On 11/26/2020 12:34:35 PM Electronically Signed by River Issa MD on at 1234 PATIENT NAME: ELENO GROSSMAN JR ACCONT #: [id number] 2020-11-26 08:20:00-00:00 [id number] [facility] [address] [address] PATIENT NAME: ELENO GROSSMAN JR ADMIT DATE: ACCOUNT NO: [id number] ROOM NO: S[facility] AGE: 70 REPORT TYPE: CONSULTATION SEX: M ADMITTING PHYSICIAN:Guy Marcial MD ATTENDING PHYSICIAN:Guy Marcial MD CONSULTATION DATE: 11/25/2020 CONSULTING PHYSICIAN: Garrick iXao NEUROLOGY CONSULTATION ATTENDING PHYSICIAN: Guy Marcial MD. CONSULTING PHYSICIAN: Garrick Thompson MD. REASON FOR CONSULTATION: Management of seizure d isorder. HISTORY OF PRESENT ILLNESS: He is a 70-y ear-old patient who at present is very drowsy. Information is from his chart. On 2020 he fell and was admitted at [facility] with headaches and left-sided weakness. He was found to have right subdural hematoma and had cr aniectomy and evacuation of hematoma. He developed seizures and is on Dilant in. PAST MEDICAL HISTORY: Significant for diabetes w ith diabetic neuropathy. PHYSICAL EXAMINATION: VITAL SIGNS: His vital signs are stable. He is b reathing on his own comfortably. NEUROLOGIC: He is drowsy. His pupils are 3 mm. H e moves all extremities spontaneously. LABORATORY DATA: Reviewed. MEDICATIONS: Reviewed. ASSESSMENT AND PLAN: He is status post fall with traumatic subdural hematoma and craniectomy. He has history of seizures and diabetic neuropathy. He is currently on Dilantin. We will check a Dilantin level. Continue present treatment. Thank you very much for this neurology consultat ion. We will follow. Dictated By: Garrick Xiao WT: CON:S.JEANNETTE/RIKKI/BRAYDEN PATIENT NAME: ELENO GROSSMAN ACCONT #: [id number] Conf#: [id number]/DID#: [id number] Authenticated by Garrick Thompson MD On 021 10:58:43 PM Electronically Signed by Garrick Thompson on at 5687 PATIENT NAME: ELENO GROSSMAN ACCONT #: [id number] 2020-11-26 04:18:00-00:00 [id number] [facility] [address] [place] [address] PATIENT NAME: ELENO GROSSMAN JR ADMIT DATE: ACCOUNT NO: [id number] ROOM NO: S[facility] AGE: 70 REPORT TYPE: PROGRESS NOTE SEX: M ADMITTING PHYSICIAN:Guy Marcial MD ATTENDING PHYSICIAN:Guy Marcial MD DATE: INFECTIOUS DISEASE PROGRESS NOTE SUBJECTIVE: The patient's mental status overall has not changed. All notes from team reviewed, read, ac knowledged and understood. Discussed in detail with Dr. Marcial as well as Dr. Giovany bowen. Nurses note no untoward issues from infectious disease standpoint through the evening. Urine an d blood cultures are in progress, which is so far negative. We ordered C T scan of chest, abdomen, and pelvis yesterday passing for him. It has not been accomplished yet for reasons not entirely clear, will try to get the orders c arried out in some timely fashion. All other notes hav e been reviewed, read, acknowledged and understood. Echocardiogram looks okay also. OBJECTIVE: VITAL SIGNS: Temperature 97 degrees, blood pressure 130/64, pulse 72 per minute and regular, respirations are 24 per minute. GENERAL: He is a well-develo ped, fairly well-nourished man, in mild respiratory distress. SKIN: No visible lesions. NODES: None were palpable. HEENT: Has not changed. NECK: Supple without thyromegaly or lymphadenopa thy. LUNGS: Scattered crackles and rhonchi. HEART: Regular rhythm without murmurs, gallops, or rubs. ABDOMEN: Soft, nontender. No hepatosplenomegaly. Slightly distended. EXTREMITIES: No clubbing, cyanosis, or significa nt edema. NEUROLOGIC: The patient is at baseline. LABORATORY DATA AVAILABLE: Has been reviewed. IMPRESSION: Overall about th e same from infectious diseases standpoint, remains afebrile on antibiotic holiday. RECOMMENDATIONS: Follow up on CAT scan reports. Continue present supportive care. We will adjust antimicrobial agents and in terventions as data and clinical circumstances dictate. Dictated By: Ismael Julio Jr, MD WT: PN:S.JEANNETTE/SELINA/BRAYDEN PATIENT NAME: ELENO GROSSMAN JR ACCONT #: [id number] Conf#: [id number]/DID#: [id number] Authenticated by Ismael Julio MD On 01:15:56 PM at 1316 PATIENT NAME: ELENO GROSSMAN JR ACCONT #: [id number] 2020-11-25 17:01:00-00:00 [id number] [facility] [place] [address] PATIENT NAME: ELENO GROSSMAN JR ADMIT DATE: ACCOUNT NO: [id number] ROOM NO: S.351 AGE: 70 REPORT TYPE: PROGRESS NOTE SEX: M ADMITTING PHYSICIAN:Guy Marcial MD ATTENDING PHYSICIAN:Guy Marcial MD DATE: 11/25/2020 PROGRESS NOTE SUBJECTIVE: Events noted, doing better. Tolerate d BiPAP treatment last night. No fever, no nausea, no othe r issues reported overnight. Discussed with nursing staff at the bedside. OBJECTIVE: VITAL SIGNS: Blood pressure is 154/60, heart rat e of 80, and temperature is 98.6. HEENT: Head is normocephalic. CHEST AND LUNGS: Bilateral breathing sounds. HEART: Normal S1, S2. ABDOMEN: Soft. EXTREMITIES: No edema. PERTINENT FINDINGS: 1. Hemoglobin 9.7. 2. WBC 14.9. 3. Potassium 4.6. ASSESSMENT AND PLAN: 1. Subdural hematoma. The patient had left-sided hemiparesis, continue with physical therapy. 2. Respiratory failure. The patient has been margo erating BiPAP treatment at nighttime. Continue the patient on Aricept. Cont inue the patient with supplemental oxygen during the daytime. Continue the patient on DuoNeb every [address] Issa, pulmonary service, i s following the patient. 3. Seizure, controlled. Continue the patient on Dilantin 100 three times a day. The patient remains on seizure precaution. 4. Debility. PT, OT and fall precautions. Dictated By: Guy Marcial MD WT: PN:S.JEANNETTE/CLARISSA./ Conf#: [id number]/DID#: [id number] PATIENT NAME: ELENO GROSSMAN JR ACCONT #: [id number] Authenticated by Guy Marcial MD On 11/28/2020 0 2:13:24 PM Electronically Signed by Guy Marcial MD on at 1413 PATIENT NAME: ELENO GROSSMAN JR ACCONT #: [id number] 2020-11-25 09:53:00-00:00 [id number] [place] [address] PATIENT NAME: ELENO GROSSMAN JR ADMIT DATE: ACCOUNT NO: [id number] ROOM NO: AGE: 70 REPORT TYPE: eECHOCARDIOGRAM REPORT SEX: M ADMITTING PHYSICIAN: ATTENDING PHYSICIAN: Guy Marcial MD *[facility]* [address] [place] [address] Transthoracic Echocardiogram Patient: Eleno Grossman Study Date: 11/24/2020 BP: 146 / 78 Location: [facility] URN: [id number] 1 : 1950 Age: 70 Height: 65 in / 165.1 cm Gender: M Weight: 24 8.5 lb / 112.9 kg BMI/BSA: 41.4 kg/m 2 / 2.17 m 2 *Ordering Physician: * Juan Mcmanus M.D. *Interpreting Physician: * Juan Mcmanus M.D. *Third Rail Installer: * Debby Little Indications: CHF. Study data: Transthoracic echocardiogram. Proced ure: Transthoracic echocardiography was performed. Im ages were obtained using a SavySwapid 4 cardiac ultrasound machine. C omplete 2D, complete spectral Doppler, and color Doppler. Lo cation: Bedside. Patient status: Inpatient. Patient room number: 351. Study status: Routine. Findings Left ventricle: The cavity size is normal. Wall thickness is normal. Systolic function is normal. The estimat ed ejection fraction is 55-60%. Wall motion is normal; there are no regional wall motion abnormalities. Doppler parameters ar e consistent with abnormal left ventricular relaxation (grade 1 di astolic PATIENT NAME: ELENO GROSSMAN ACCOUNT #: [id number] dysfunction). Right ventricle: The cavity size is normal. Syst olic function is normal. Left atrium: The atrium is normal in size. Right atrium: The atrium is normal in size. Aorta: Aortic root: The aortic root is normal in size. Aortic valve: The valve is trileaflet. The leafl ets are moderately calcified. The findings are consisten t with mild stenosis. There is no regurgitation. Mitral valve: The valve is structurally normal. There is no evidence of stenosis. There is no regurgitation. Tricuspid valve: The valve is structurally sanjay l. There is no regurgitation. Pulmonic valve: The valve is structurally normal . There is no regurgitation. Pericardium: There is no pericardial effusion. Pulmonary arteries: The main pulmonary artery is normal-sized. Systemic veins: Inferior vena cava: The vessel is normal in size . Measurements Left ventricle Value Ref SAIMA, LAX 2.3 cm 4.2 - 5.8 ESD, LAX 1.6 cm 2.5 - 4.0 ESD/bsa, LAX 0.7 cm/m 2 1.3 - 2.1 FS, LAX 30 % 25 - 43 ESD 1.6 cm 2.5 - 4.0 ESD/bsa 0.7 cm/m 2 1.3 - 2.1 FS 30 % 25 - 43 PW, ED 1.9 cm 0.6 - 1.0 PW, ES 2.1 cm IVS/PW, ED 1.07 EF 60 % 52 - 72 EF, SMM Teich. 60 % >=55 E', lat mihaela, TDI 7.2 cm/sec >=10.0 E/e', lat mihaela, 7 TDI E', med mihaela, TDI 5.4 cm/sec >=7.0 E/e', med mihaela, 9 TDI E', avg, TDI 6.3 cm/sec E/e', avg, TDI 8 <=14 LVOT Value Ref Diam, S 1.50 cm Area 1.8 cm 2 Peak taylor, S 1.13 m/sec Mean taylor, S 0.78 m/sec VTI, S 24.2 cm Peak grad, S 5 mm Hg Mean grad, S 3 mm Hg PATIENT NAME: DANICA GROSSMANRenetta Vallejo ACCOUNT #: [id number] SV 43 ml SV/bsa 20 ml/m 2 Ventricular septum Value Ref IVS, ED 2.0 cm 0.6 - 1.0 IVS, ES 2.1 cm Right ventricle Value Ref SAIMA, LAX 3.1 cm SAIMA 3.1 cm Pressure, S 36 mm Hg Left atrium Value Ref LA ID 2.7 cm AP dim, ES 2.73 cm 3.00 - 4.00 AP dim ES, LAX 2.7 cm 3.0 - 4.0 SI dim ES, LAX 2.7 cm Vol, ES, 2-p 49 ml Vol/bsa, ES, 2-p 23 ml/m 2 16 - 34 LA/Ao root ratio 0.85 AP dim, ES MM 2.7 cm 3.0 - 4.0 LA/Ao root ratio, 1 MM Aortic valve Value Ref Peak v, S 2.4 m/sec Mean v, S 1.53 m/sec VTI, S 43.2 cm Mean grad, S 11.1 mm Hg Peak grad, S 23.1 mm Hg LVOT/AV, VTI 0.56 ratio CHANDA, VTI 0.88 cm 2 LVOT/AV, Vpeak 0.47 ratio CHANDA, Vmax 0.74 cm 2 Mitral valve Value Ref Peak E 0.06 m/sec Peak A 0.79 m/sec Mean v, D 0.48 m/sec VTI leaflet coapt 20.9 cm Decel time 201 ms PHT 53 ms Mean grad, D 1.2 mm Hg Peak grad, D 4.0 mm Hg Peak E/A ratio 0.62 MVA, PHT 4.2 cm 2 MR peak v 4.4 m/sec Tricuspid valve Value Ref TR peak v 2.53 m/sec <=2.8 Peak RV-RA grad, 26 mm Hg PATIENT NAME: ELENO GROSSMAN JR ACCOUNT #: [id number] Aortic root Value Ref Root diam 3.2 cm <4.3 Root diam, ED MM 2.73 cm Ascending aorta Value Ref AAo AP diam, S 3.7 cm AAo AP diam/bsa, 1.7 cm/m 2 S Pulmonary artery Value Ref Pressure, S 27.4 mm Hg Systemic veins Value Ref Estimated CVP 10 mm Hg Conclusions Summary: 1. Left ventricle: The cavity size is normal. Wa ll thickness is normal. Systolic function is normal. The estima temi ejection fraction is 55-60%. Wall motion is normal; ther e are no regional wall motion abnormalities. Doppler parameters a re consistent with abnormal left ventricular relaxation (grad e 1 diastolic dysfunction). 2. Aortic valve: The findings are consistent wit h mild stenosis. Prepared and electronically signed by Juan Mcmanus M.D. 11/25/2020 09:52 Electronically Signed by MD toña Toledo 11/25/20 at 0953 PATIENT NAME: ELENO GROSSMAN JR ACCOUNT #: [id number] 2020-11-25 04:29:00-00:00 2812-8400 [facility] [address] [place] [address] PATIENT NAME: ELENO GROSSMAN JR ADMIT DATE: ACCOUNT NO: [id number] ROOM NO: S.351 AGE: 70 REPORT TYPE: PROGRESS NOTE SEX: M ADMITTING PHYSICIAN:Guy Marcial MD ATTENDING PHYSICIAN:Guy Marcial MD DATE: INFECTIOUS DISEASE PROGRESS NOTE SUBJECTIVE: The patient is alert and att entive, indicates he is comfortable at present time. I have ordered urine culture now f or several days. It has not been accomplished, so I have to order it again. He is on antibiotic holiday at this juncture. We will go ah ead and get a CT scan of chest, abdomen, and pelvis to make sure we are not missing any cryptogenic issues. Dr. Issa ordered an ultrasound of the liver, whi ch showed possible cirrhosis but the reading was not clear and I will go ahead and get a CAT scan of the abdomen to try to corroborate whether or not there is anything jada t looks like active cirrhosis and we will order hepatitis C antibody also. All notes have been reviewed, read, acknowledged and understood from t he team. Remains on antibiotic holiday for the time being unless definable infection is clearly noted. Discussed in detail with Dr. Marcial as well as Dr. Issa. No specific other new issues are noted from infectious diseas es standpoint, through the evening shift. Discussed with nursing personnel. OBJECTIVE: VITAL SIGNS: Temperature is 97 degrees, blood pr essure 159/86, pulse 86 per minute and regular, respiratory rate 21 per yumiko te. GENERAL: He is a well-developed, well-nourished man, in no acute distress. SKIN: No new visible lesions. NODES: None were palpable. HEENT: Has not changed. NECK: Supple. LUNGS: Scattered crackles and rhonchi. HEART: Regular rhythm without murmurs, gallops, or rubs. ABDOMEN: Distended, soft, nontender. I cannot fe el liver or spleen tip. EXTREMITIES: No clubbing, cyanosis, or significa nt edema. NEUROLOGIC: The patient is at baseline. LABORATORY DATA AVAILABLE: Has been reviewed. IMPRESSION: Overall stable from infectious disea se standpoint, on antibiotic holiday. Very high risk for nosocomial infection s and infectious disease decompensation. RECOMMENDATIONS: CT scan of chest, abdomen, and pelvis will be performed. Remains on antibiotic holiday unless definable i nfection is noted. We will PATIENT NAME: ELENO GROSSMAN JR ACCONT #: [id number] adjust antimicrobial agents at that juncture as data and clinical circumstances dictate. Dictated By: Ismael Julio Jr, MD WT: PN:S.HIM/SELINA/NTS Conf#: [id number]/DID#: [id number] Authenticated by Ismael Julio MD On 12:37:46 PM at 1238 PATIENT NAME: ELENO GROSSMAN JR ACCONT #: [id number] 2020-11-24 19:57:00-00:00 [id number] [place] [address] PATIENT NAME: ELENO GROSSMAN JR ADMIT DATE: ACCOUNT NO: [id number] ROOM NO: [facility] AGE: 70 REPORT TYPE: PROGRESS NOTE SEX: M ADMITTING PHYSICIAN:Guy Marcial MD ATTENDING PHYSICIAN:Guy Marcial MD DATE: 11/24/2020 PROGRESS NOTE SUBJECTIVE: Events noted. Discussed with nursing staff. Doing better. Slightly weak but much improved. The patient margo erated BiPAP last night. OBJECTIVE: VITAL SIGNS: Blood pressure 130/70, heart rate o f 80, and temperature 97.7. HEENT: Head is normocephalic. CHEST AND LUNGS: Bilateral breathing sounds. HEART: Normal S1, S2. ABDOMEN: Soft. EXTREMITIES: No edema. PERTINENT FINDINGS: 1. Hemoglobin 9.7. 3. Potassium 4.6. ASSESSMENT AND PLAN: 1. Acute hypoxemic respiratory failure. The abdiel ent tolerated BiPAP at nighttime. . Dr. Issa, Pulmonary service, is fo llowing the patient. 2. Sepsis with pneumonia. Dr. Julio is following the patient. The patient is on cefepime. 3. Subdural hematoma. s/p carniotomy, doing bett er. The patient has left sided hemiparesis. Dictated By: Guy Marcial MD WT: PN:SNATANAEL/CLARISSA.01/NTS Conf#: [id number]/DID#: [id number] Authenticated and Edited by Guy Marcial MD On 2:32:20 PM Electronically Signed by Guy Marcial MD on at 1436 PATIENT NAME: ELENO GROSSMAN JR ACCONT #: [id number] 2020-11-24 04:24:00-00:00 [id number] [facility] [place] [address] PATIENT NAME: ELENO GROSSMAN JR ADMIT DATE: ACCOUNT NO: [id number] ROOM NO: [facility] AGE: 70 REPORT TYPE: PROGRESS NOTE SEX: M ADMITTING PHYSICIAN:Guy Marcial MD ATTENDING PHYSICIAN:Guy Marcial MD DATE: INFECTIOUS DISEASE PROGRESS NOTE SUBJECTIVE: I am in a possession of at least a f ew notes from the past hospitalization, it shares he is a 70-year-old m an with history of seizure disorder, on Dilantin, hyper tension, and hyperlipidemia, who fell on 11/12/2020 and was found to have a blos soming subdural hematoma with mass effect and taken emergently to the OR 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 As best I can tell, his course was felt to be nominal from the neurosurgery team. He does have an x-ray that suggested bilateral lower lobe airspace opacities compatible for possible aspiration pneumonia and a nodule in the right apex, 2 to 5 mm. I cannot find any positive cul tures. I still do not have any clear reason why the patient was transferred on , unless it h as something to do with the aspiration pneumonia. He had a CTA of the neck t hat does not appear to be impressive at present time a nd I am assuming the patient is transferred here for his rehabilitation. Again, he is alert and atten tive, a bit amnestic for all the things that I have mentioned. I do n ot know if he is far from the baseline mental status that he was prior to the fall. He is cooperative, alert and attentive. There are no high-spiking fevers, or chills, and I cannot find anything that looks like an active infec tious disease problem at present time. Therefore, I am going to sto p his antibiotics at this juncture and follow serial cultures at this point unless there is s ome other information someone can find that would suggest why the p atient needs to remain on cefepime at this juncture. OBJECTIVE: VITAL SIGNS: Temperature is 98 degrees, blood pr essure 132/71, pulse 73 per minute and regular, respirations are 16 per yumiko te. GENERAL: He is a well-develo ped, fairly well-nourished man, who at present time is in no acute distress. SKIN: No other new visible lesions. NODES: None were palpable. HEENT: Has not changed. NECK: Supple without thyromegaly or lymphadenopa thy. LUNGS: Fairly clear to auscultation and percussi on. HEART: Regular rate and rhythm without murmurs, gallops, or rubs. ABDOMEN: Soft, nontender. No hepatosplenomegaly. EXTREMITIES: No clubbing, cyanosis, or significa nt edema. NEUROLOGIC: The patient is alert and attentive. No specific focal findings. Again, not sure what his baseline is. PATIENT NAME: ELENO GROSSMAN JR [facility] #: [id number] IMPRESSION: Looks like the biggest issue is subd ural hematoma requiring mass effect, requiring evacuation on 11/11, i ntubated for a 24-hour period of time, then extubated. It looks like he has had a nomin al course as best I can tell from the paucity of notes th at accompany the patient, but nothing to suggest an active infectious disease problems at this junct ure. RECOMMENDATIONS: Antibiotic holiday will ensue a t present time. We will continue present supportive care and adjust antimicrobial interventions as data and clinical circumstances dictate. Dictated By: Ismael Julio Jr, MD WT: PN:S.JEANNETTE/SELINA/BRAYDEN Conf#: [id number]/DID#: [id number] Authenticated by Ismael Julio MD On 02:15:19 PM at 1415 PATIENT NAME: ELENO GROSSMAN JR ACCONT #: [id number] 2020-11-23 17:36:00-00:00 2340-4000 [place] [address] PATIENT NAME: ELENO GROSSMAN JR ADMIT DATE: ACCOUNT NO: [id number] ROOM NO: [facility] AGE: 70 REPORT TYPE: HISTORY AND PHYSICAL SEX: M ADMITTING PHYSICIAN:Guy Marcial MD ATTENDING PHYSICIAN:Guy Marcial MD ADMISSION DATE: 11/22/2020 REASON FOR ADMISSION: Subdural hematoma. HISTORY OF PRESENT ILLNESS: The patient is a 73-year-old male with past medical history significant for status post fall, subdur al hematoma, diabetes, hypertension, hyperlipidemia, and obesity. The andrea grimm lives in [place], [place]. The patient had a fall, presented to [facility] in [facility]. The patient has a craniotomy and hematoma evacuation. Course of hospitalization was uneventful. The patient was treated for pneu monia. The patient was transferred to [facility]. He is awake and responsive. is present at the bedside. PAST MEDICAL HISTORY: As I mentioned above. PAST SURGICAL HISTORY: Craniotomy. REVIEW OF SYSTEMS: As history of present illness , 12-point review otherwise negative, if not mentioned. ALLERGIES: PENICILLIN. HOME MEDICATIONS: Transfer MAR reconciled. PHYSICAL EXAMINATION: GENERAL: The patient is known to our service. CURRENT VITAL SIGNS: Blood pressure ____, heart rate of 80, and temperature 98.4. HEENT: Head is normocephalic. CHEST AND LUNGS: Bilateral breathing sounds. HEART: Normal S1 and S2. ABDOMEN: Soft. EXTREMITIES: No edema. PERTINENT FINDINGS: 1. Potassium 4.6. 2. AST 48. 3. ALT 58. 4. INR 1.1. 5. Hemoglobin 9. 7. WBC 17. PATIENT NAME: ELENO GROSSMAN JR ACCONT #: [id number] ASSESSMENT AND PLAN: 1. Subdural hematoma, status post craniotomy. Do ing well, alert and responsive. Continue physical therapy. The patie nt has left sided weakness. 2. Sepsis. Dr. Julio for infectious disease foll owing the patient. Continue the patient on vancomycin, cefepime 1 g every 8 hours. Culture report is in progress. 3. Seizure prophylaxis. The patient is on Dilant in 100 three times a day. We will check Dilantin level. Neurology, Dr. Jerson denis consulted. 4. Hypertension, controlled. Continue the patien t on losartan 50 mg daily. Dictated By: Guy Marcial MD WT: HP:SNATANAEL/CLARISSA./NTS Conf#: [id number]/DID#: [id number] Authenticated by Guy Marcial MD On 11/24/2020 1 0:01:06 AM Electronically Signed by Guy Marcial MD on at 1001 PATIENT NAME: ELENO GROSSMAN ACCONT #: [id number] 2020-11-23 12:06:00-00:00 [id number] [facility] [place] [address] PATIENT NAME: ELENO GROSSMAN ADMIT DATE: ACCOUNT NO: [id number] ROOM NO: S.351 AGE: 70 REPORT TYPE: CONSULTATION SEX: M ADMITTING PHYSICIAN:Guy Marcial MD ATTENDING PHYSICIAN:Guy Marcial MD CONSULTATION DATE: 11/23/2020 CONSULTING PHYSICIAN: River Issa MD PULMONARY AND CRITICAL CARE CONSULTATION The patient was seen from 9:30 a.m. to 10:15 a.m . A total of 45 minutes were spent taking care of the patient. The patient was discussed with OK Daniels. There are no medical records that were sent with the patient from [facility] to [facility]. There is very few infor mation available to us and no surgical reports, radiologic studies, etc. BRIEF HISTORY: The patient is a 70-year-old man that on 11/11 fell and was admitted to the hospital wit h increasing headaches and left-sided weakness. The patient was diagnosed with a right subdural daniella atilio. The patient had an evacuation; and from then on, it is uncl ear what happened. There is a notation that on 11/19, he failed swallowing test, and th en he passed it on the . The patient was transferred with orders to wear BiPAP; and when I went to examine, he was sleepy, and he was obstructing. So, I have changed the order to use the BiPAP while sleeping whatever time it is of the day. PAST MEDICAL HISTORY: Diabetes with neuropathy a nd a history of seizure disorder. PAST SURGICAL HISTORY: Unable to obtain. MEDICATIONS: From the [facility] showe d amlodipine, atorvastatin, cefepime, hydralazine, insulin, losartan, Dilant in, primidone, propranolol, Effexor and albuterol nebulization treatments. ALLERGIES: PENICILLIN. SOCIAL HISTORY: Unable to ob tain, but the patient appears to be ; and he said, when I was questioning him, that h e did not ever smoke, but he could not give me much more information. FAMILY HISTORY: Unable to obtain. PATIENT NAME: ELENO GROSSMAN JR [facility] #: [id number] REVIEW OF SYSTEMS: Unable to obtain. PHYSICAL EXAMINATION: VITAL SIGNS: He has a temper ature of 98.1, a heart rate of 80, respiratory rate of 22, blood pressure is 155/76 and he has a pul se oximetry of 94% on nasal cannula. HEENT: Normocephalic. The patient has the surgic al evacuation site. Pupils react to light. NECK: Supple, very short and thick. Throat is cl ear, and he has a Mallampati 3. CHEST: Shallow breathing, otherwise clear to aus cultation. CARDIOVASCULAR: S1, S2. No murmurs, gallop or ru b. ABDOMEN: Bowel sounds are positive. Obese and no ntender. GENITOURINARY: No CVA tenderness. EXTREMITIES: There is no clubbing, cyanosis or e damian. NEUROLOGIC: The patient is arousable. He appears to be oriented x1, and he moves all his extremities. LABORATORY DATA: Sodium is 138, potassium is 4.6 , chloride is 107, CO2 is 21, glucose is 108, BUN is 25, creatinine is 0.8, total protein is 5.7, albumin is 3.6 and calcium is 7.8. Bilirubin is 0.3, SGOT 4 8, SGPT 58 and alkaline phosphatase 160. Magnesium 2.1, and phosphorus i s 3.1, INR is 1.15. White count is 15.0 with an H and H of 9.0 and 27.5 wi th 446,000 platelets. Chest x-ray shows retrocardiac atelectasis with pulmon danita edema and/or pneumonia. DIAGNOSTIC IMPRESSION: 1. Respiratory failure with hypoxemia. 2. Likely, the patient to have obstructive sleep apnea and obesity hypoventilation. I will be obtaining an ABG. He was placed on BiPAP. 3. Vascular congestion and possible volume overl oad. 4. Left lower lobe infiltrat e, most likely pneumonia that is being treated with cefepime. 5. Altered mental status, post subdural hematoma . 6. Plate atelectasis. 7. Obesity. 8. History of diabetes and seizure disorder. DISCUSSION: The patient will be placed on BiPAP during the time he sleeps. We will be getting an ABG to ma ke sure that he does not have at the present time a respiratory acidosis. He will continue o n nebulization treatments. The patient is being treated for hypertension, hyperlipidemi a as well as diabetes. The chest x-ray is suggestive of volume overload. We will be getting a brain natriuretic peptide. The patient has bee n pancultured, and he will be followed very closely in the unit. While he is not on the BiPAP, he will be on a nasal cannula to keep the saturation of oxygen above 9 2% to 94%. Dictated By: River Issa MD WT: CON:S.JEANNETTE/SRIINVAS/BRAYDEN Conf#: [id number]/DID#: [id number] PATIENT NAME: ELENO GROSSMAN JR ACCONT #: [id number] Authenticated by Estevan Issa MD On 11/24/2020 10:31:16 AM Electronically Signed by River Issa MD on at 1031 PATIENT NAME: JOHANNAELENO JR ACCONT #: [id number] 2020-11-23 04:54:00-00:00 [id number] [facility] [address] [place] [address] PATIENT NAME: ELENO GROSSMAN JR ADMIT DATE: ACCOUNT NO: [id number] ROOM NO: [id number] AGE: 70 REPORT TYPE: CONSULTATION SEX: M ADMITTING PHYSICIAN:Guy Marcial MD ATTENDING PHYSICIAN:Guy Marcial MD CONSULTATION DATE: 11/23/2020 CONSULTING PHYSICIAN: Ismael Julio Jr, MD INFECTIOUS DISEASE CONSULTATION ATTENDING PHYSICIAN: Guy Marcial MD HISTORY OF PRESENT ILLNESS: I came by to see the patient today in consultation from infectious disease standpoint. There are ab solutely no records available on the patient, no H and P, no paperwork, no nothing. Nurse has no idea why the patient is here, supervisory personnel cannot find any records accompanying the patient or any computer generated record . While he is alert and attentive, the details of why he is here and what the circumsta nces are, are unknown to him. Therefore, it is impossible for me to do a consu ltation note in a patient who has no records, with the nurse who has n o idea why he is here. All she did was take an old MAR and placed t he patient back on [facility] for reasons that are not entirely clear. Reached out the supervisory pers onnel who cannot help, I will send a note to administratio n, asking to get the records as quick as possible so perhaps the next group of do ctors coming by will have a more intelligent comment on his care and that the patient should not be t ransferred especially in the middle of night to an instit ution with zero medical records available. Standing by for further information, so I can see I can help from the infectious diseases standpoint. Good news is he is alert and hemodyn amically stable and is not under in any emergent situat ion at least on my rounds at the time ____. We will do a more formal consultation when some informat ion of any type is available. Dictated By: Ismael Julio Jr, MD WT: CON:S.JEANNETTE/SELINA/BRAYDEN Conf#: [id number]/DID#: [id number] Authenticated by Ismael Julio MD On 12:52:32 PM at 1252 PATIENT NAME: ELENO GROSSMAN JR ACCONT #: [id number]"
[2023-03-23 07:48] LABS: Absolute Lymphocytes (CBC) 4.2 K/uL (0.7-4.9); Lymphocytes % 41.2 % (15.3-44.8); MCV 94.4 fL (80-100); MPV 6.4 fL (7.6-11.3); Platelets 328 thou/uL (152-406); RBC Red Blood Cell Count 3.81 M/uL (4.33-5.43)
--- NOTE | 2023-03-23 07:50 | RAD REPORT ---
EXAM DESCRIPTION: Angela Single View03/23/2023 7:39 am CLINICAL HISTORY: fall from standing COMPARISON: No comparisons TECHNIQUE: Portable AP view of the chest. FINDINGS: The lungs are clear.Decreased inspiratory effort limits evaluation. No pneumothorax or eff usion. The cardiomediastinal contours are unremarkable. IMPRESSION: No acute cardiopulmonary process.
[2023-03-23] MEDS ORDERED: HYDROCODONE/APAP 7.5/325 MG TAB ONE (07:56)
[2023-03-23 08:03] LABS: Magnesium 2.2 mg/dL (1.6-2.4); Potassium 5.1 mEq/L (3.5-5.1); Troponin High Sensitivity 10.1 pg/mL (<58.9)
--- NOTE | 2023-03-23 08:07 | RAD REPORT ---
EXAM DESCRIPTION: CT - [id number] - 03/23/2023 7:19 am CLINICAL HISTORY: HEADACHE COMPARISON: No comparisons TECHNIQUE: Axial thin cut noncontrast CT images of the head were obtained. Axial thin cut noncontrast CT images of the cervical spine were obtained. Multiplanar reformatted images were generated and reviewed. All CT scans are performed using dose optimization technique as appropriate and may include automated exposure control or mA/KV adjustment according to patient size. FINDINGS: CT HEAD WITHOUT CONTRAST: Sequelae of prior right frontoparietal craniotomy. High right frontal region of encephalomalacia, cou ld relate to remote postsurgical, or chronic ischemic or posttraumatic sequelae. . Left centrum semio marshal focus of near CSF density, could relate to a small remote infarct as well. No acute hemorrhage, hydrocephalus or extra-axial collection is identified.No areas of brain edema or midline shift. The paranasal sinuses and mastoids are clear.The calvarium is intact. CT CERVICAL SPINE WITHOUT CONTRAST: No fracture or subluxation.Mild degenerative changes with straightening of normal lordosis. Bilateral [id number] neural foraminal narrowing at C4-5 secondary to uncovertebral joint and facet spurr ing.No prevertebral soft tissues swelling is identified. IMPRESSION: No acute traumatic intracranial or cervical spine findings. Chronic findings as above.
--- NOTE | 2023-03-23 08:55 | EDPHYS ---
Physician Documentation [facility] Name: Eleno Grossman Jr Age: 72 yrs Sex: Male : 1950 Arrival Date: 03/23/2023 Time: 06:41 Bed 7 Private MD: ED Physician Adarsh Giles HPI: 03/23 07:33 This 72 yrs old Male presents to ER via Ambulatory with complaints of Fall Injury, Head kdr Injury Without LOC-Adult. 07:34 Patient states that about 2 hours ago he got up to go to the bathroom. He is not sure kdr exactly what happened but he did fall. His states that he has had multiple falls recently. Patient denies pain except in his upper neck. Patient is awake alert and appropriate. He is nontoxic-appearing.. Onset: The symptoms/episode began/occurred suddenly, 2 hour(s) ago. Severity of symptoms: At their worst the symptoms were mild in the emergency department the symptoms are unchanged. The patient has experienced similar episodes in the past, multiple times, Patient has a history of falls. His neck pain is new. The patient has not recently seen a physician. Historical: - Allergies: 07:02 PENICILLINS; kl - Home Meds: 07:10 phenytoin 50 mg Oral tablet,chewable 2 tabs daily for epilepsy [Active]; amlodipine 2.5 kl mg tablet daily [Active]; atorvastatin 20 mg oral tablet every day at bedtime [Active]; citalopram 20 mg tablet daily [Active]; solifenacin 5 mg oral tablet daily [Active]; propranolol 10 mg Oral tablet 2 tabs 2 times per day [Active]; primidone 50 mg Oral tablet 1 tab every day at bedtime [Active]; - PMHx: 07:10 Cerebrovascular accident; subdural hematoma; Arthritis; tremors; Hypertensive disorder; kl - Immunization history:: Adult Immunizations not immunized. - Social history:: Smoking status: Patient denies any tobacco usage or history of. ROS: 07:34 Constitutional: Negative for fever, chills, and weight loss, Eyes: Negative for injury, kdr pain, redness, and discharge, ENT: Negative for injury, pain, and discharge, Neck: Negative for injury, pain, and swelling, Cardiovascular: Negative for chest pain, palpitations, and edema, Respiratory: Negative for shortness of breath, cough, wheezing, and pleuritic chest pain, Abdomen/GI: Negative for abdominal pain, nausea, vomiting, diarrhea, and constipation, Back: Negative for injury and pain, : Negative for injury, bleeding, discharge, and swelling, MS/Extremity: Negative for injury and deformity, Skin: Negative for injury, rash, and discoloration, Psych: Negative for depression, anxiety, suicide ideation, homicidal ideation, and hallucinations, Allergy/Immunology: Negative for hives, rash, and allergies, Endocrine: Negative for neck swelling, polydipsia, polyuria, polyphagia, and marked weight changes, Hematologic/Lymphatic: Negative for swollen nodes, abnormal bleeding, and unusual bruising. 07:34 Neuro: Positive for near syncope, weakness, Negative for seizure activity. Exam: 07:36 Constitutional: This is a well developed, well nourished patient who is awake, alert, kdr and in no acute distress. Head/Face: Normocephalic, atraumatic. Eyes: Pupils equal round and reactive to light, extra-ocular motions intact. Lids and lashes normal. Conjunctiva and sclera are non-icteric and not injected. Cornea within normal limits. Periorbital areas with no swelling, redness, or edema. Chest/axilla: Normal chest wall appearance and motion. Nontender with no deformity. No lesions are appreciated. Cardiovascular: Regular rate and rhythm with a normal S1 and S2. No gallops, murmurs, or rubs. Normal PMI, no JVD. No pulse deficits. Respiratory: Lungs have equal breath sounds bilaterally, clear to auscultation and percussion. No rales, rhonchi or wheezes noted. No increased work of breathing, no retractions or nasal flaring. Abdomen/GI: Soft, non-tender, with normal bowel sounds. No distension or tympany. No guarding or rebound. No evidence of tenderness throughout. Back: No spinal tenderness. No costovertebral tenderness. Full range of motion. MS/ Extremity: Pulses equal, no cyanosis. Neurovascular intact. Full, normal range of motion. Neuro: Awake and alert, GCS 15, oriented to person, place, time, and situation. Cranial nerves II-XII grossly intact. Motor strength 5/5 in all extremities. Sensory grossly intact. Cerebellar exam normal. Normal gait. Psych: Awake, alert, with orientation to person, place and time. Behavior, mood, and affect are within normal limits. 07:36 Skin: injury, abrasion(s), small abrasion noted, Patient has abrasions on both knees.. Vital Signs: 06:59 BP 167 / 77; Pulse 58; Resp 18; Temp 97.2(O); Pulse Ox 96% on R/A; Weight 112.94 kg kl (M); Height 5 ft. 6 in. ; Pain 7/10; 08:07 BP 160 / 81; Pulse 56; Resp 15; Pulse Ox 97% ; Pain 6/10; jl7 09:19 BP 164 / 85; Pulse 56; Resp 16; Pulse Ox 94% ; bp 06:59 Body Mass Index 40.19 (112.94 kg, 167.64 cm) kl 06:59 Pain Scale: Adult kl 08:07 Pain Scale: Adult jl7 MDM: 08:54 Patient medically screened. kdr 12:41 Data reviewed: vital signs, nurses notes, lab test result(s), radiologic studies. [facility] 08 07:19 Order name: Basic Metabolic Panel; Complete Time: 08:15 kdr 0812 07:19 Order name: CBC with Diff; Complete Time: 08:15 kdr 0812 07:19 Order name: Magnesium; Complete Time: 08:15 kdr 0812 07:19 Order name: NT PRO-BNP; Complete Time: 08:15 kdr 0812 07:19 Order name: Troponin HS; Complete Time: 08:15 kdr 0812 07:36 Order name: Dilantin; Complete Time: 08:15 kdr 08 07:00 Order name: CT Head C Spine; Complete Time: 08:15 [facility] 03/23 07:19 Order name: XRAY Chest (1 view); Complete Time: 08:15 kdr 0812 07:19 Order name: EKG; Complete Time: 07:20 kdr 0812 07:00 Order name: Ice pack; Complete Time: 07:36 [facility] 03/23 07:19 Order name: Cardiac monitoring; Complete Time: 07:35 kdr 0812 07:19 Order name: EKG - Nurse/Tech; Complete Time: 07:48 kdr 08 07:19 Order name: IV Saline Lock; Complete Time: 07:35 kdr 03/23 07:19 Order name: Labs collected and sent; Complete Time: 07:35 kdr 03/23 07:19 Order name: O2 Per Protocol; Complete Time: :35 kdr 03/23 07:19 Order name: O2 Sat Monitoring; Complete Time: :35 kdr Administered Medications: 07:48 Drug: Hydrocodone-Acetaminophen PO (7.5 mg-325 mg) 1 tabs Route: PO; bp Disposition Summary: 03/23/23 08:54 Discharge Ordered Location: Home kdr Problem: new kdr Symptoms: have improved kdr Condition: Stable kdr Diagnosis - Unspecified injury of head, initial encounter kdr - Fall from standing kdr Followup: kdr - With: Private Physician - When: 2 - 3 days - Reason: If symptoms return, Further diagnostic work-up, Recheck today's complaints, Continuance of care, Re-evaluation by your physician Discharge Instructions: - Discharge Summary Sheet kdr - Non-Epileptic Seizures, Adult kdr - Weakness, [id number] kdr - Head Injury, Adult, [id number] kdr Forms: - Medication Reconciliation Form kdr - Thank You Letter kdr - Patient Portal Instructions kdr - Leadership Thank You Letter kdr Signatures: Dispatcher [employer] Jenna Kaur, RN RN Abdias Mccallum MD MD cha Rittger, Kevin, MD MD kdr Peltier, Brian, RN RN bp
--- NOTE | 2023-03-23 08:55 | ER ---
Nurse's Notes [facility] Name: Eleno Grossman Jr Age: 72 yrs Sex: Male : 1950 Arrival Date: 03/23/2023 Time: 06:41 Bed 7 Private MD: Diagnosis: Unspecified injury of head, initial encounter;Fall from standing Presentation: 03/23 06:59 Chief complaint: Spouse and/or significant other states: fell and hit head this am at kl 0400 while going to bathroom pt denies LOC but does not know why he fell. Coronavirus screen: Vaccine status: Patient reports being unvaccinated. Ebola Screen: Patient negative for fever greater than or equal to 101.5 degrees Fahrenheit, and additional compatible Ebola Virus Disease symptoms. Initial Sepsis Screen: Does the patient meet any 2 criteria? No. Patient's initial sepsis screen is negative. Does the patient have a suspected source of infection? No. Patient's initial sepsis screen is negative. Risk Assessment: Do you want to hurt yourself or someone else? Patient reports no desire to harm self or others. Onset of symptoms was March 23, 2023 at 04:00. 06:59 Method Of Arrival: Ambulatory 06:59 Acuity: MORENA 3 kl Triage Assessment: 07:09 General: Appears uncomfortable, Behavior is calm, cooperative. Pain: Complains of pain kl in back of neck Pain currently is 7 out of 10 on a pain scale. Neuro: Level of Consciousness is awake, alert, obeys commands, Oriented to person, place, time, situation, Speech is normal, Facial symmetry appears normal. Injury Description: reddened raised area to left occipital area. Historical: - Allergies: 07:02 PENICILLINS; kl - Home Meds: 07:10 phenytoin 50 mg Oral tablet,chewable 2 tabs daily for epilepsy [Active]; amlodipine 2.5 kl mg tablet daily [Active]; atorvastatin 20 mg oral tablet every day at bedtime [Active]; citalopram 20 mg tablet daily [Active]; solifenacin 5 mg oral tablet daily [Active]; propranolol 10 mg Oral tablet 2 tabs 2 times per day [Active]; primidone 50 mg Oral tablet 1 tab every day at bedtime [Active]; - PMHx: 07:10 Cerebrovascular accident; subdural hematoma; Arthritis; tremors; Hypertensive disorder; kl - Immunization history:: Adult Immunizations not immunized. - Social history:: Smoking status: Patient denies any tobacco usage or history of. Screenin:16 [facility] ED Fall Risk Assessment (Adult) History of falling in the last 3 months, kl including since admission Yes- fall prone (multiple falls) (3 pts) Confusion or Disorientation No (0 pts) Intoxicated or Sedated No (0 pts) Impaired Gait Yes (1 pt) Mobility Assist Device Used Yes (1 pt) Altered Elimination No (0 pt) Score/Fall Risk Level 3 or more points = High Risk Oriented to surroundings, Maintained a safe environment, Used ambulatory aids as needed (educated on \T\ assisted with). Abuse screen: Denies threats or abuse. Nutritional screening: No deficits noted. Tuberculosis screening: No symptoms or risk factors identified. Assessment: 07:10 General: SEE TRIAGE NOTE. bp 09:19 Reassessment: PT DC HOME VIA WHEELCHAIR WITH FAMILY. bp Vital Signs: 06:59 BP 167 / 77; Pulse 58; Resp 18; Temp 97.2(O); Pulse Ox 96% on R/A; Weight 112.94 kg kl (M); Height 5 ft. 6 in. ; Pain 7/10; 08:07 BP 160 / 81; Pulse 56; Resp 15; Pulse Ox 97% ; Pain 6/10; jl7 09:19 BP 164 / 85; Pulse 56; Resp 16; Pulse Ox 94% ; bp 06:59 Body Mass Index 40.19 (112.94 kg, 167.64 cm) kl 06:59 Pain Scale: Adult kl 08:07 Pain Scale: Adult jl7 ED Course: 06:46 Patient arrived in ED. jj6 07:02 Triage completed. kl 07:05 Adarsh Giles MD is Attending Physician. kdr 07:10 Arm band placed on. bp 07:10 Patient has correct armband on for positive identification. Bed in low position. Call bp light in reach. Side rails up X2. Adult w/ patient. 07:20 CT Head C Spine In Process Unspecified. EDMS 07:28 Pio Wilson, RN is Primary Nurse. bp 07:30 Initial lab(s) drawn, by ED staff, sent to lab. EKG done, by ED staff, reviewed by lurdes Giles MD. 07:35 XRAY Chest (1 view) Sent. bp 07:35 Inserted saline lock: 22 gauge in right antecubital area, using aseptic technique. bp Blood collected. 07:41 XRAY Chest (1 view) In Process Unspecified. EDMS 08:06 Provided Education on: use of call sutton. Pulse ox on. NIBP on. Warm blanket given. jl7 09:21 No provider procedures requiring assistance completed. IV discontinued, intact, bp bleeding controlled, No redness/swelling at site. Pressure dressing applied. Administered Medications: 07:48 Drug: Hydrocodone-Acetaminophen PO (7.5 mg-325 mg) 1 tabs Route: PO; bp Medication: 07:10 VIS not applicable for this client. bp Outcome: 08:54 Discharge ordered by . kdr 09:21 Discharged to home via wheelchair, with family. bp 09:21 Condition: stable 09:21 Discharge instructions given to patient, Instructed on discharge instructions, follow up and referral plans. Demonstrated understanding of instructions, follow-up care. 09:22 Patient left the ED. bp Signatures: Dispatcher [employer] EDMS Jenna Santillan, RN Adarsh Mccall MD MD kdr Leal, Jahala RN RN jl7 Pio Wilson RN RN Lyudmila Abramsj6
[2023-03-23 09:31] VITALS: TEMP 97.2
[2023-03-23 09:42] VITALS: BP 164/85; O2SAT 94
--- NOTE | 2023-03-24 15:29 | EKG ---
Test Date: 2023-03-23 Test Time: 08:03:41 Bread Baker: [place] MEASUREMENT RESULTS: Intervals: Rate: 54 AL: 208 QRSD: 82 QT: 452 QTc: 428 [place]: P: 36 AL: 208 QRS: -7 T: 15 INTERPRETIVE STATEMENTS: Sinus bradycardia Otherwise normal ECG No previous ECG available for comparison Electronically Signed On 03-24-23 15:28:21 CDT by Jorge Alberto Mata
== END 2023-03-23 09:22 | disposition home or self-care (01) ==
LOC: ER 06:41
DX: S09.90XA Unspecified injury of head, initial encounter (principal); W18.30XA Fall on same level, unspecified, initial encounter; R55 Syncope and collapse; R53.1 Weakness; I10 Essential (primary) hypertension; Z88.0 Allergy status to penicillin
CPT/HCPCS: 36415; 70450; 71045; 72125; 80048; 80185; 83735; 83880; 84484; 85025; 93005; 99284

== ENCOUNTER 2023-06-20 21:28 | Emergency (ER) | payer MEDICARE ==
--- OUTSIDE RECORDS SUMMARY | 2023-06-20 21:36 | XMS REPORT | Continuity of Care Document ---
:1950 Author Organization [facility] t Address [address] [place] [address] [place] [id number] Care Team Providers Name Role Phone HILTON GRACIA Primary Care Physician Unavailable Guy Marcial Attending Clinician Unavailable Lupe Rosado MA Attending Clinician Unavailable Carter Coardo MD Attending Clinician Hilton Gracia MD Attending Clinician ABIGAIL DIAZ Attending Clinician Unavailable Abigail Diaz [...] Number Effective Date Expiration Date S katerin DEVOTED HE[employer] DSYG9Y 2021 MEDICARE ADVANTAGE 00:00:00 PLAN DEVOTED HEALTH DSYG9Y 2021 (MEDICARE 00:00:00 REPLACEMENT HMO) HL HL [id number] [facility] Observe Medical [place] [id number] 2019 00:00:00 Problems Condition Condition Condition Status Onset Resolution Last Treating Co mments Source Name Details Category Date Date Treatment Clinician Date Acute Acute Disease Active Univers cystitis cystitis 09 ity of without without 00:00: [place] hematuria hematuria 00 Medi rizwana Branch 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 episodes 08 ity of of of 00:00: [place] unresponsi unresponsi 00 Me dical veness veness 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 108 it y of traumatic traumatic 00:[place] brain brain 00 Medical injury injury Branch Carotid Carotid Disease Recurre Univer s stenosis, stenosis, nce 108 ity of asymptomat asymptomat 00:[place] ic, ic, 00 Medical bilateral bilateral Bran ch 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 00:00: [place] due to due to 00 Medical external external Branch causes, causes, without without status status epilepticu epilepticu s s Seizure Seizure Disease Active Univers 1-08 ity of 00:00: [place] 00 Medical Branch Allergies, Adverse Reactions, Alerts Allergy Allergy Status Severity Reaction(s) Onset Inactive Treating Comm ents Source Name Type Date Date Clinician PENICILL Allergy Active ENCCLR IN 08-31 14:12: 50 PENICILL Allergy Active ENCCLR IN 08-31 14:12: 50 MILK Allergy Active ENCCLR 08-31 14:12: 44 MILK Allergy Active ENCCLR 08-31 14:12: 44 Penicill [facility] Active [facility]- [place] 00:00: [facility] 00 are [facility] Penicill DA Active [facility] ins 11-22 [place] 00:00: [facility] [address] PENICILL DRUG Active Rash 2018-08 Univers IN INGREDI 09-09 ity of 00:00: [place] 00 Medical Branch Penicill Propensi Active Rash 2018-08 Can take Univ ers in ty to 09-09 amoxicill ity of adverse 00:00: in [place] reaction 00 Medical s Branch Penicill Propensi Active Rash 2018-08 Can take Meth sruthi ins ty to 09-[address] adverse 00:00: in Hospita reaction 00 l s to drug Social History Social Habit Start Date Stop Date Quantity Comments Source [facility] Tobacco use and 2023-06-10 2023-06-10 Smokeless [facility] exposure 00:00:00 00:00:00 tobacco non-user Hospital History of Social 2023-06-10 2023-06-[address] function 00:00:00 00:00:00 Hospital Exposure to 2022-08-15 2022-08-25 Not sure University of SARS-CoV-2 (event) 00:00:00 14:17:00 [facility] Sex Assigned At [birth year] M[facility] 00:00:00 00:00:00 Hospital Smoking Status Start Date Stop Date Source Never smoked tobacco [facility]ital Medications Ordered Filled Start Stop Current Ordering Indication Dosage Frequency Signature Comments Components Source Medication Medication Date Date Medication? Clinician (SIG) Name Name MALCOLMMagdyTHEOFiliberto 2022-08 Yes Take by Met hodchristina G-OLIVE-ORE 0-[address] G-CAPRYL 10:08: Hospita ORAL 03 l cyanocobala 2022-[address] Met mynor min, 0-30 2,[address] vitamin 10:08: under the Hospi ta B-12, 5,000 03 tongue l mcg tablet, daily. sublingual cholecalcif 2022-08 Yes 2000U QD Take 1 Met mynor jessenia, 0-[address] vitamin D3, 10:08: (2,000 Hosp jenny 50 mcg 03 Units l (2,000 total) by unit) mouth capsule daily. capsule zinc 2022-08 Yes 1{capsu QD Take 1 Methodi sulfate 0-30 le} capsule by st (ZINCATE) 10:08: mouth Hospita 50 mg zinc 03 daily. l (220 mg) capsule ubidecareno 2022-08 Yes Take by Met hodi ne/omega-3/ 0-[address] vit E 10:08: Hospita (COQ-10 & 02 l FISH OIL ORAL) gabapentin 2022-08- Yes 200mg Q.5D Take 2 Met hodi (Neurontin) 0-30 04-[address] 100 mg 00:00: 04:59 (200 mg Hospita capsule 00 :00 total) by l mouth 2 (two) times a day for 180 days. atorvastati 2022-08 Yes 20mg QD Take 1 Meth sruthi n (LIPITOR) 0-03 tablet (20 st 20 mg 00:00: mg total) Hospita tablet 00 by mouth l daily. propranoloL 2022-08 Yes 10mg Take 1 Meth sruthi (INDERAL) 0-03 tablet (10 st 10 MG 00:00: mg total) Hospita tablet 00 by mouth. l solifenacin 2022-08 Yes 5mg QD Take 1 Meth sruthi (VESICARE) 0-03 tablet (5 st 5 MG tablet 00:00: mg total) H ospita 00 by mouth l daily. primidone Yes 2 TALETS Meth sruthi (MYSOLINE) 9-[address] 50 MG 00:00: ONCE A DAY Hospit a tablet 00 AT 7PM 90 l DAYS phenytoin Yes Pt takes 2 Me thodi (DILANTIN) 9-[address] 100 MG ER 00:00: and one in Ho spita capsule 00 the PM l citalopram Yes 20mg QD Take 1 Metho di (CeleXA) 20 9-07 tablet (20 st MG tablet 00:00: mg total) Hos sheron 00 by mouth l daily. amLODIPine Yes 2.5mg QD Take 1 Meth sruthi (NORVASC) 8-[address] 2.5 mg 00:00: (2.5 mg Hospita tablet 00 total) by l mouth daily. magnesium 0 2022- No 1g 1 g, IV Univ ers sulfate in 02-24 Piggyback, it y of D5W 1 20:15: 20:08 ONCE, 1 [place] gram/100 mL 00 :00 dose, On [facility] RTU IV Sun Branch Piggyback 1 02/24/23 at g 1515, Administer over 60 Minutes, 100 mL fosphenytoi 2022-0 3- No 1500mg{ 1,500 mg Univers n (CEREBYX) 02-24 phenyto PE, IV it y of 1,500 mg PE 20:00: 21:00 in'equi Piggyback, [place] in NaCl 00 :00 valent} ONCE, 1 Medica l 0.9% (NS) dose, On Branch piggyback 02/24/23 at 1500, Administer over 30 Minutes, 100 mL phenytoin 2022-0 2022- No 500mg 500 mg, IV Univers (DILANTIN) 01-26 Piggyback, it y of 500 mg in 20:45: 20:15 ONCE, 1 [place] NaCl 0.9% 00 :00 dose, On Medica l (NS) (5 Sat Branch mg/mL) 01/26/23 at piggyback 1545, 100 mL fosphenytoi 2022-0 2022- No 10mg{ph 1,021 mg Univers n (CEREBYX) 08-25 enytoin PE (10 mg ity of 1,021 mg PE 21:30: 21:48 'equiva PE/kg [place] in NaCl 00 :00 lent}/k ?102.1 Medical 0.9% (NS) g kg), IV Branch piggyback Piggyback, ONCE, 1 dose, On 08/25/22 at 1530, Administer over 30 Minutes, 50 mL NaCl 0.9% 2022-0 2022- No 500mL at 999 Univ ers (NS) bolus 08-25-14 mL/hr, 500 it y of infusion 21:15: 21:48 mL, IV [place] 500 mL 00 :00 Infusion, Medical ONCE, 1 Branch dose, On 08/25/22 at 1515, JESSI No known 2022- No No known Unive rs medications -14 medication it y of 14:21: s [place] 08 Medical Branch phenytoin 0 Yes 100mg 100 mg, Univ ers (DILANTIN) 1-10 Oral, TID, ity of 100 mg/4 mL 14:00: First dose [place] oral 00 (after Medical suspension last Branch 100 mg modificati on) on 08/21/21 at 0800, Until Discontinu ed, Routine sulfamethox Yes 1{tbl} 1 tablet, [facility] azole-trime -10 Oral, BID, it y of thoprim 02:00: First dose [place] (BACTRIM 00 on [facility] DS) 800-160 08/20/21 at [facility] nch mg per 1999, tablet 1 Until tablet Discontinu ed, JESSI
Re ason for Anti-Infec tive: Documented Infection< br>Documen temi Infection Site: Urine
D uration of Therapy: 7 days phenytoin 2021- No [id number] 300mg Take 1 Univers ER 300 mg 08-2111 capsule by ity of ER capsule 00:00: 04:59 mouth [place] 00 :00 daily for Medical 90 days. [place] LORazepam No 1mg 1 mg, Univer s (ATIVAN) 08-20 01-09 Oral, ity of tablet 1 mg 17:15: 21:45 ONCE, 1 [place] 00 :[place] dose, On [facility] 08/20/21 Branch at 1115, Routine pantoprazol Yes 40mg 40 mg, Univ ers e 08-20 Oral, ity of (PROTONIX) 15:00: DAILY, [place] EC tablet 00 First dose Medi rizwana 40 mg on [facility] 08/20/21 at 0900, Until Discontinu ed, Routine primidone Yes 50mg 50 mg, Univer s (MYSOLINE) 1-09 Oral, QHS, ity of tablet 50 03:00: First dose [place] mg 00 on [facility] 08/19/21 at Branch 2100, Until Discontinu ed, Routine atorvastati Yes 40mg 40 mg, Univ ers n (LIPITOR) -09 Oral, QHS, it y of tablet 40 03:00: First dose [place] mg 00 on [facility] 08/19/21 at Branch 2100, Until Discontinu ed, Routine venlafaxine Yes 75mg 75 mg, Univ ers (EFFEXOR) -09 Oral, BID, ity of tablet 75 02:00: First dose [place] mg 00 on [facility] 08/19/21 at Branch 2000, Until Discontinu ed, Routine propranoloL Yes 10mg 10 mg, Univ ers (INDERAL) 08-20 Oral, BID, ity of tablet 10 02:00: First dose [place] mg 00 on [facility] Medical 08/19/21 at Branch 1999, Until Discontinu ed, Routine heparin Yes 5000U 5,000 Univers (porcine) 08-20 Units, ity of injection 02:00: Subcutaneo [place] 5,000 Units 00 us, Q12H, Med ical First dose Branch on [facility] 08/19/21 at 2000, Until Discontinu ed, Routine phenytoin 2021- No 100mg 100 mg, Uni vers (DILANTIN) 08-20 Oral, TID, it y of 100 mg/4 mL 02:00: 12:43 First dose [place] oral 00 :24 on [facility] Medical suspension 08/19/21 at Bran ch 100 mg 1999, Until Discontinu ed, Routine atorvastati 2022- No [id number] 40mg Take 1 Univers n 40 mg 08-20 tablet by ity of tablet 00:00: 05:59 mouth at [place] 00 :00 bedtime Medical for 360 Branch days. propranoloL 2022- No [id number] 10mg Take 1 Univers 10 mg 08-20 tablet by ity of tablet 00:00: 05:59 mouth 2 [place] 00 :00 (two) Medical times Branch daily for 360 days. venlafaxine 2022- No [id number] 75mg Take 1 Univers 75 mg 08-20 tablet by ity of tablet 00:00: 05:59 mouth 2 [place] 00 :00 (two) Medical times Branch daily for 360 days. pantoprazol 2022- No [id number] 40mg Take 1 Univers e 40 mg EC 08-20 tablet by ity of tablet 00:00: 05:59 mouth [place] 00 :00 daily for Medical 360 days. Branch sulfamethox 2021- No [id number] 1{tbl} Take 1 Univers azole-trime 08-20 tablet by it y of thoprim 00:00: 05:59 mouth 2 [place] 800-160 mg 00 :00 (two) Medical per tablet times Branch daily for 6 days. phenytoin 2021- No [id number] 100mg Take 4 mL Univers 100 mg/4 mL 08-20 by mouth 3 i ty of oral 00:00: 00:00 (three) [place] suspension 00 :00 times Medical daily for Branch 360 days. butalbital- 0 Yes 1{tbl} 1 tablet, Univers acetaminoph 08-19 Oral, ity of en-caff 22:24: Q6HPRN, [place] (ESGIC) 34 Starting Medical 50-325-40 on [facility] Branch mg tablet 1 08/19/21 at tablet 1624, Until Discontinu ed, Routine, Pain (scale 4-6), Pain (scale 7-10) fosphenytoi 2021- No 20mg{ph 2,042 mg Univers n (CEREBYX) 08-19 enytoin PE (20 mg ity of 2,042 mg PE 21:00: 21:05 'equiva PE/kg [place] in NaCl 00 :00 lent}/k ?102.1 Medical 0.9% (NS) g kg), IV Branch piggyback Piggyback, ONCE, 1 dose, On [facility] 08/19/21 at 1500, Administer over 30 Minutes, 100 mL ondansetron 0 Yes 4mg 4 mg, Slow Univers (ZOFRAN 08 IV Push, ity of (PF)) 20:30: Q6HPRN, [place] injection 4 38 Starting Medi rizwana mg on [facility] Branch 08/19/21 at 1430, Until Discontinu ed, JESSI, Nausea and Vomiting (N/V) LORazepam 0 Yes 2mg 2 mg, Slow Un emily (ATIVAN) 08-19 IV Push, ity of injection 2 20:06: Q5MIN PRN, [place] mg 39 Starting Medical on [facility] Branch 08/19/21 at 1406, Until Discontinu ed, Routine, Seizures NaCl 0.9% 2021-0 Yes 1000mL at 75 Unive rs (NS) IV 1-08 mL/hr, IV ity of infusion 20:00: Infusion, [place] 1,000 mL 00 CONTINUOUS Medic al , Starting Branch on 08/19/21 at 1400, Until Discontinu ed, Routine phenytoin 2021-0 2021- No 100mg 100 mg, Uni vers (DILANTIN) 08-19 Oral, TID, it y of chewable 20:00: 21:20 First dose [place] tablet 100 00 :58 on Sat Medical mg 08/19/21 at Branch 1400, Until Discontinu ed, Routine acetaminoph Yes 650mg 650 mg, Un emily en 08-19 Oral, ity of (TYLENOL) 19:48: Q6HPRN, [place] tablet 650 11 Starting Medic al mg on [facility] Branch 08/19/21 at 1348, Until Discontinu ed, Routine, Pain (scale 4-6) docusate Yes 100mg 100 mg, Unive rs (COLACE) 08-19 Oral, ity of capsule 100 19:48: QDAILYPRN, [place] mg 11 Starting Medical on [facility] Branch 08/19/21 at 1348, Until Discontinu ed, Routine, Constipati on iopamidol 2021- No [id number] 100mL 100 mL, Univers (ISOVUE 08-19 Intravenou ity o f 370-500 mL) 16:45: 15:25 s, ONCE, 1 [place] injection 00 :00 dose, On Medica l 100 mL [facility] 08/19/21 Branch at 1045, Routine ondansetron 2021- No 4mg 4 mg, Slow Univers (ZOFRAN 08-19 IV Push, ity of (PF)) 15:30: 14:21 ONCE, 1 [place] injection 4 00 :00 dose, On Medi rizwana mg [facility] 08/19/21 Branch at 0930, JESSI acetaminoph 2018-08- No [id number] 1{tbl} Take 1 Univers en-codeine 09-09 [id number] tablet by i ty of 300-30 mg 00:00: 00:00 mouth [place] tablet 00 :00 every 4 Medical (four) Branch hours as needed for Pain (scale 7-10). Vital Signs Vital Name Observation Time Observation Value Comments Source Systolic blood 2023-02-24 22:30:00 154 mm[Hg] Univer sity of pressure [facility] Diastolic blood 2023-02-24 22:30:00 75 mm[Hg] Unive rsity of pressure [facility] Heart rate 2023-02-24 22:30:00 59 /min Universi ty [facility] [place] [facility] Respiratory rate 2023-02-24 22:30:00 19 /min Univ ersity of [place] [facility] Oxygen saturation in 2023-02-24 22:30:00 94 /min University of Arterial blood by [facility] rizwana Pulse oximetry Branch Body temperature 2023-02-24 20:22:00 36.06 Yazmin Univ ersity of [place] [facility] Body height 2023-02-24 17:59:00 172.7 cm [facility]i ty [facility] [place] [facility] Body weight 2023-02-24 17:59:00 113.399 kg [facility] [place] [facility] BMI 2023-02-24 17:59:00 38.01 kg/m2 Universi ty of [place] [facility] Systolic blood 2023-01-26 20:00:00 166 mm[Hg] Univer sity of pressure [place] [facility] Diastolic blood 2023-01-26 20:00:00 83 mm[Hg] Unive rsity of pressure [place] [facility] Heart rate 2023-01-26 20:00:00 72 /min [facility]i ty [facility] [place] [facility] Respiratory rate 2023-01-26 20:00:00 20 /min Univ ersity of [place] [facility] Oxygen saturation in 2023-01-26 20:00:00 94 /min University of Arterial blood by [facility] Pulse oximetry Branch Body temperature 2023-01-26 17:13:00 36.17 Yazmin Univ ersity of [place] [facility] Body weight 2023-01-26 17:13:00 102.059 kg Universi ty [facility] [place] [facility] BMI 2023-01-26 17:13:00 37.44 kg/m2 [facility] [place] [facility] Systolic blood 2022-08-25 21:00:00 130 mm[Hg] Univer sity of pressure [place] [facility] Diastolic blood 2022-08-25 21:00:00 91 mm[Hg] Unive rsity of pressure [place] [facility] Heart rate 2022-08-25 21:00:00 74 /min [facility]i ty [facility] [place] [facility] Respiratory rate 2022-08-25 21:00:00 18 /min Univ ersity of [place] [facility] Oxygen saturation in 2022-08-25 21:00:00 94 /min University of Arterial blood by [place] [employer] rizwana Pulse oximetry Branch Body temperature 2022-08-25 20:18:00 36.83 Yazmin Univ ersity [facility] [place] [facility] Body weight 2022-08-25 20:18:00 102.059 kg [facility] BMI 2022-08-25 20:18:00 37.44 kg/m2 [facility] Systolic blood 2021-08-22 01:35:00 149 mm[Hg] Univer sity of pressure [facility] Diastolic blood 2021-08-22 01:35:00 73 mm[Hg] Unive rsity [facility] Heart rate 2021-08-22 01:35:00 62 /min Universi [facility] Body temperature 2021-08-22 01:35:00 36.11 Yazmin [facility] 2021-08-22 01:35:00 16 /min [facility] Oxygen saturation in 2021-08-22 01:35:00 96 /min [facility] Arterial blood by [facility] Pulse oximetry [place] Body height 2021-08-19 19:12:00 165.1 cm [facility] Body weight 2021-08-19 19:12:00 102.059 kg [facility] BMI 2021-08-19 19:12:00 37.44 kg/m2 [facility] Systolic blood 2023-06-10 15:01:00 149 mm[Hg] [facility] pressure Diastolic blood 2023-06-10 15:01:00 74 mm[Hg] [facility] pressure Heart rate 2023-06-10 15:01:00 58 /min [facility] Body temperature 2023-06-10 15:01:00 36.78 Yazmin [facility] Respiratory rate 2023-06-10 15:01:00 18 /min [facility] Body height 2023-06-10 15:01:[address] [facility] Body weight 2023-06-10 15:01:[address] [facility] BMI 2023-06-10 15:01:00 40.94 kg/m2 [facility] Procedures Procedure Date / Time Performing Source Performed Clinician POTASSIUM SERUM 2023-02-24 Abigail Diaz [facility] xas 20:55:[address] HEAD WO CONTRAST 2023-02-24 Abigail Diaz o f [place] 20:07:57 Medical Branch COMP. METABOLIC PANEL ([id number]) 2023-02-24 Abigail Diaz [facility] 19:51:00 Medical Branch URINALYSIS 2023-02-24 Joe Hugh [facility] [place] 19:46:00 Medical Branch MAGNESIUM 2023-02-24 Joe [facility] xa 18:13:00 Medical Branch PHENYTOIN 2023-02-24 Joe [facility] [place] 18:13:00 Medical Branch CBC WITH DIFF 2023-02-24 Joe Hugh [facility] [place] 18:13:00 Medical Branch CONSENT/REFUSAL FOR DIAGNOSIS 2023-02-24 Doctor Unassigned, [facility] AND TREATMENT 18:06:24 [place] [facility] [place] EKG-12 LEAD 2023-01-26 Philip Patten [facility] xa 20:50:40 Medical Branch COMP. METABOLIC PANEL ([id number]) 2023-01-26 Philip Patten [facility] 17:10:00 Medical Branch PHENYTOIN 2023-01-26 Philip Patten [facility] [place] 17:10:00 Medical Branch CBC WITH DIFF 2023-01-26 Philip Patten [facility] 17:10:00 Medical Branch COMP. METABOLIC PANEL ([id number]) 2022-08-25 Jay Olivier [facility] 20:34:00 Medical Branch PHENYTOIN 2022-08-25 Jay Olivier [facility] ex 20:34:00 Medical Branch CBC WITH DIFF 2022-08-25 Jay Olivier [facility] exas 20:34:00 Medical Branch CONSENT/REFUSAL FOR DIAGNOSIS 2022-08-25 Doctor Unassigned, [facility] AND TREATMENT 20:14:00 [place] [facility] PHENYTOIN FREE 2021-08-21 [facility] 09:57:00 [facility] CBC WITH DIFF 2021-08-21 Paula [facility] xas 09:57:00 Medical Branch MAGNESIUM 2021-08-21 Paula [facility] xa 09:57:00 Medical Branch BASIC METABOLIC PANEL (NA, K, 2021-08-21 Anamaria Mitchell [facility] CL, CO2, GLUCOSE, BUN, 09:57:00 [facility] CREATININE, CA) ELECTROENCEPHALOGRAM 2021-08-21 [facility]00 [facility] URINE CULTURE 2021-08-20 Paula [facility] [place] 16:56:00 [facility] PHENYTOIN FREE 2021-08-20 Terri [facility] xa 00:07:00 [facility] GLYCOSYLATED HEMOGLOBIN (A1C) 2021-08-20 Terri [facility] 00:07:00 [facility] XR CHEST 1 VW 2021-08-19 Terri [facility] [place] 20:11:[address] [facility] [address] ANGIOGRAM HEAD 2021-08-19 Joe [facility] 15:34:[address] [facility] CT ANGIOGRAM NECK 2021-08-19 Joe [facility] 15:34:[address] [facility] [address] HEAD WO CONTRAST 2021-08-19 Joe Abigail [place] o f [place] 15:34:34 [facility] URINALYSIS 2021-08-19 Joe [facility] xa 14:59:00 [facility] URINE DRUG (IMMUNOASSAY) - 2021-08-19 Joe Abigail [facility] COMPREHENSIVE DRUG SCREEN W/O 14:59:00 Va dical Branch REFLEX COVID-19 (ID NOW RAPID [facility]-08-[facility] 14:23:00 [facility] CBC WITH DIFF 2021-08-19 Joe [facility] xa 14:10:00 [facility] PROTHROMBIN TIME / INR 2021-08-19 [facility] 14:10:00 [facility] ACTIVATED PARTIAL THRMPLAS 2021-08-19 Joe Abigail [facility] JUDIT 14:10:00 [facility] N-TERMINAL PRO-BNP 2021-08-19 Joe [facility] 14:10:00 [facility] PHOSPHORUS 2021-08-19 Terri [facility] [place] 14:10:00 [facility] Branch MAGNESIUM 2021-08-19 Terri [facility] xa 14:10:00 [facility] Branch TROPONIN I 2021-08-19 Joe [facility] [place] 14:10:00 [facility] FREE T4 2021-08-19 Joe [facility] xa 14:10:00 [facility] THYROID STIMULATING HORMONE 2021-08-19 Joe [facility] 14:10:00 [facility] COMP. METABOLIC PANEL ([id number]) 2021-08-19 [facility] 14:10:00 [facility] PHENYTOIN 2021-08-19 Joe [facility] [place] 14:10:00 [facility] ETHANOL 2021-08-19 Joe [facility] [place] 14:10:00 [facility] LACTIC ACID WHOLE BLOOD 2021-08-[facility] 14:09[facility] HB ECG ROUTINE & RHYTHM STRIP 2021-08-19 Abigail Diaz [facility] 14:01:38 [facility] Plan of Care Planned Activity Planned Date Details Comments Source Future Scheduled 2023-06-18 Screening for [facility] Test 11:53:27 malignant neoplasm of colon (procedure) [code = 947170783] Future Scheduled 2023-06-18 Screening for [facility] Test 11:53:27 malignant neoplasm of colon (procedure) [code = 839064226] Future Scheduled 2023-06-18 Screening for [facility] Hospital Test 11:53:27 malignant neoplasm of colon (procedure) [code = 239707119] Future Scheduled 2023-06-18 COVID-19 VACCINE (#1) [facility] Hospital Test 11:53:27 [code = COVID-19 VACCINE (#1)] Future Scheduled 2023-06-18 Hepatitis C screening [facility] Hospital Test 11:53:27 (procedure) [code = 157763046] Future Scheduled 2023-06-18 Screening for [facility] Hospital Test 11:53:27 malignant neoplasm of colon (procedure) [code = 689968680] Future Scheduled 2023-06-18 Screening for [facility] Hospital Test 11:53:27 malignant neoplasm of colon (procedure) [code = 115790401] Future Scheduled 2023-06-18 SHINGLES VACCINES (1 [facility] Test 11:53:27 of 2) [code = SHINGLES VACCINES (1 of 2)] Future Scheduled 2023-06-18 65+ P[facility]UMOCOCCAL [facility] Test 11:53:27 VACCINE (1 - PCV) [code = 65+ PNEUMOCOCCAL VACCINE (1 - PCV)] Future Scheduled 2023-06-18 INFLUENZA VACCINE (#1) [facility] [place] Test 11:53:27 [code = INFLUENZA VACCINE (#1)] Encounters Start End Encounter Admission Attending Care Care Encounter Source Date/Time Date/Time Type Type Clinicians Facility Department ID 2020-11-22 Inpatient AMINTA Marcial [facility] [id number] [facility] 20:34:55 Guy 05 tone Special ty Hospita [facility] 2023-06-18 2023-06-18 Refill Rosado, 1.2.840.1 [id number] Methodi 00:00:00 00:00:[id number] 3.430.2.7 Hospit a .3.848915 l .8 2023-06-10 2023-06-10 Office Mickie, 1.2.840.1 [id number] Methodi 09:30:00 10:55:05 Visit Carter [id number] Shankar 3.430.2.7 Hospit a .[id number] l .8 2023-06-10 2023-06-[address] [facility] [id number] [address] [place] [address] 00:00:00 00:00:[address] 2023-04-24 2023-04-24 Transcribe Gracia, 1.2.840.1 [id number] Methodi 00:00:00 00:00:00 Orders [place] [id number] 3.430.2.7 Hospit a .3.311788 l .8 2023-02-24 2023-02-24 Emergency X [facility] [facility] ERT [id number] Univers 13:01:00 18:40:00 ABIGAIL saavedra [facility] 2023-02-24 2023-02-24 Emergency Joe [facility] [id number] Univers 13:01:00 18:40:00 Abigail HERMAN 350.1.13.10 i ty [facility] 4.2.7.2.686 [facility] [id number] [address] 2023-01-26 2023-01-26 Emergency X VASUT, [facility] ERT [id number] Univers 12:09:00 16:04:00 PHILIP [facility] 2023-01-26 2023-01-26 Emergency Vasut, [facility] [id number] Univers 12:09:00 16:04:00 Philip HERMAN 350.1.13.10 i ty of [place] 4.2.7.2.686 [facility] [id number] [address] 2022-11-30 2022-11-30 CAV Nori 2.16.840. 2.16.840.1. CLASorin XKKYKZ [facility] 20:00:00 21:00:00 Wyatt [id number]. [id number]. [facility] [id number] 2022-08-25 2022-08-25 Emergency X CHARLINE, [facility] ERT [id number] Univers 14:16:00 17:49:00 JAY [facility] 2022-08-25 2022-08-25 [facility] [id number] Univers 14:16:00 17:49:00 Jay Laura HERMAN 350.1.13.10 i ty of [place] 4.2.7.2.686 [facility] [id number] [address] 2022-04-13 2022-04-13 [facility] 1109 [facility] 00:00:00 00:00:00 [address]12 [facility] 2022-04-13 2022-04-13 Outpatient Williams_V JUAN STEINER 1109 - Devoted 00:00:00 00:00:00 77157 Medica l Group 2022-02-23 2022-02-23 Outpatient JUAN STEINER [id number] [facility] 03:28:00 03:28:00 83304 Med[facility] l Group 2021-11-02 2021-11-02 Outpatient JATIN JATIN [id number]- [facility] 09:00:00 09:00:00 81789 Medica l Group 2021-08-31 2021-08-31 Outpatient DIANA LEE, CRYSTALCLR ENCCLR [id number] ENCCLR 00:00:00 00:00:00 ADMISSION BAYRON 2021-08-21 2021-08-30 Inpatient 3 ALEKSANDAR Huntre BIN [id number] Encompa 21:15:00 11:00:00 [facility] [place] 2021-08-19 2021-08-21 Outpatient X AVENDAÑO, [facility] MAKI [id number] Univers 08:00:00 22:01:00 RAYMON saavedra o f [facility] 2021-08-19 2021-08-21 Emergency Abigail Diaz 1.2.840. 114 [id number] Univers 08:00:00 22:01:00 Raymon [facility].1.13.1 [facility] 4.2.7.2.686 Matthew as [id number] [place] [id number] [place] 2020-11-23 2020-11-23 Outpatient HEMANT Marcial REF [id number] [facility] 08:52:00 08:52:00 Guy 62 [facility] 2020-11-22 2020-11-22 [id number] [facility] 20:34:49 20:34:49 Formerly [facility] 41 [facility] Results Test Description Test Time Test Comments Results Result Comments Source POTASSIUM SERUM 2023-02-24 21:39:42 Test Item Value Reference Range Interpretation Comme nts K (test code = 4327788157) 4.6 mmol/L 3.5-5.0 Lab Interpretation (test code = 79914-9) [facility] ([id number])2023-02-24 20:40:28 Test Item Value Reference Range Interpretation Comments NA (test code = 137 mmol/L 135-145 3103864947) K (test code = 6.3 mmol/L 3.5-5.0 HH 9317132975) CL (test code = 103 mmol/L 98-108 1863469687) CO2 TOTAL (test code = 26 mmol/L 23-31 1832375790) AGAP (test code = 8 2-16 1394622160) BUN (test code = 17 mg/dL 7-23 4992649355) GLUCOSE (test code = 114 mg/dL 70-110 H 6404154330) CREATININE (test code = 0.97 mg/dL 0.60-1.25 6995226332) TOTAL BILI (test code = 0.7 mg/dL 0.1-1.3 5517409411) CALCIUM (test code = 8.6 mg/dL 8.6-10.6 2832253391) T PROTEIN (test code = 7.5 g/dL 6.3-8.2 8543308646) ALBUMIN (test code = 4.1 g/dL 3.5-5.0 1409483118) ALK PHOS (test code = 153 U/L 34-122 H 2974987356) ALTv (test code = 36 U/L 5-50 1742-6) AST(SGOT) (test code = 43 U/L 13-40 H 3603690525) eGFR (test code = 75.9 mL/min/1.73m2 1408212048) DARIN (test code = DARIN) Association of [...] tests). Lab Interpretation Abnormal (test code = 21054-4) [facility]2023-[facility]-16 18:58:02 Test Item Value Reference Range Interpretation Comments MAGNESIUM (test code = 9879023679) 1.1 mg/dL 1.7-2.4 L Lab Interpretation (test code = Abnormal 17536-6) [facility]2023-07-16 18:47:54 Test Item Value Reference Range Interpretation Comments PHENYTOIN (test code = 4.0 ug/mL 10.0-20.0 L 5630265847) DARIN (test code = DARIN) Toxic Range: ? 0-3 Months ? Greater than 14 ug/mL ? ? 3 Months - 150 Years ? ? Greater than 20 ug/mL Lab Interpretation (test Abnormal code = 54510-7) [facility] WITH [id number] 18:31:30 Test Item Value Reference Range Interpretation Comments WBC (test code = 9.00 See_Comment [Automated 2919-2) message] The sy stem which generated this result transmitted reference range : 4.20 - 10.70 10*3/?L. The reference range was not used to interpret this result as normal/abnormal . RBC (test code = 3.97 See_Comment L [Automated 351-8) message] The sy stem which generated this [...] RDW-SD (test code = 47.8 fL 38.5-51.6 41458-4) RDW-CV (test code = 13.8 % 12.1-15.4 788-0) PLT (test code = 327 See_Comment [Automated 777-3) message] The sy stem which generated this result transmitted reference range : 150 - 328 10*3/ ?L. The reference r esdras was not used to interpret this result as normal/abnormal . MPV (test code = 8.5 fL 9.8-13.0 L 05426-6) NRBC/100 WBC (test 0.0 See_Comment [Automat ed code = 4582557370) message] The system which generated this result transmitted reference range : 0.0 - 10.0 /100 WBCs. The refer ence range was not u sed to interpret th is result as normal/abnormal . NRBC x10^3 (test code See_Comment [Auto mated = 3973851172) message] The s ystem which generated this result transmitted reference range : 10*3/?L. The reference range was not used to interpret this result as normal/abnormal . GRAN MAT (NEUT) % 49.5 % (test code = 770-8) IMM GRAN % (test code 0.30 % = 7738067615) LYMPH % (test code = 39.7 % 736-9) MONO % (test code = 7.0 % 5905-5) EOS % (test code = 2.9 % 713-8) BASO % (test code = 0.6 % 706-2) GRAN MAT x10^3(ANC) 4.46 10*3/uL 1.99-6.95 (test code = 7309867639) IMM GRAN x10^3 (test 0.03 10*3/uL 0.00-0.06 code = 6259875376) LYMPH x10^3 (test code 3.57 10*3/uL 1.09-3.23 H = 731-0) MONO x10^3 (test code 0.63 10*3/uL 0.36-1.02 = 742-7) EOS x10^3 (test code = 0.26 10*3/uL 0.06-0.53 711-2) BASO x10^3 (test code 0.05 10*3/uL 0.01-0.09 = 704-7) Lab Interpretation Abnormal (test code = 35276-9) [facility]2023-[facility]-17 18:43:34 Test Item Value Reference Range Interpretation Comments PHENYTOIN (test code = 9.1 ug/mL 10.0-20.0 L 3450788757) DARIN (test code = DARIN) Toxic Range: ? 0-3 Months ? Greater than 14 ug/mL ? ? 3 Months - 150 Years ? ? Greater than 20 ug/mL Lab Interpretation (test Abnormal code = 02890-0) [facility]OLIC PANEL (47183)2023-01-26 17:42:34 Test Item Value Reference Range Interpretation Comments NA (test code = 141 mmol/L 135-145 9038021510) K (test code = 4.7 mmol/L 3.5-5.0 9388939550) CL (test code = 108 mmol/L 98-108 9485536757) CO2 TOTAL (test code = 23 mmol/L 23-31 4434577854) AGAP (test code = 10 2-16 5596351057) BUN (test code = 25 mg/dL 7-23 H 6541295177) GLUCOSE (test code = 170 mg/dL 70-110 H 2897961862) CREATININE (test code = 1.16 mg/dL 0.60-1.25 2399697541) TOTAL BILI (test code = 0.4 mg/dL 0.1-1.2 6858332467) CALCIUM (test code = 8.7 mg/dL 8.6-10.6 8300085268) T PROTEIN (test code = 7.2 g/dL 6.3-8.2 4761242602) ALBUMIN (test code = 4.0 g/dL 3.5-5.0 1324277229) ALK PHOS (test code = 146 U/L 34-122 H 2575517725) ALTv (test code = 32 U/L 5-50 1742-6) AST(SGOT) (test code = 31 U/L 13-40 8282941880) eGFR (test code = 61.7 mL/min/1.73m2 0300177105) DARIN (test code = DARIN) Association of [...] tests). Lab Interpretation Abnormal (test code = 22595-0) [facility] acute hospital WITH [id number] 17:30:16 Test Item Value Reference Range Interpretation Comments WBC (test code = 8.30 See_Comment [Automated 5178-2) message] The sy stem which generated this result transmitted reference range : 4.20 - 10.70 10*3/?L. The reference range was not used to interpret this result as normal/abnormal . RBC (test code = 3.83 See_Comment L [Automated 812-7) message] The sy stem which generated this [...] RDW-SD (test code = 47.8 fL 38.5-51.6 12633-7) RDW-CV (test code = 13.9 % 12.1-15.4 788-0) PLT (test code = 300 See_Comment [Automated 777-3) message] The sy stem which generated this result transmitted reference range : 150 - 328 10*3/ ?L. The reference r esdras was not used to interpret this result as normal/abnormal . MPV (test code = 8.5 fL 9.8-13.0 L 91418-5) NRBC/100 WBC (test 0.0 See_Comment [Automat ed code = 8809722488) message] The system which generated this result transmitted reference range : 0.0 - 10.0 /100 WBCs. The refer ence range was not u sed to interpret th is result as normal/abnormal . NRBC x10^3 (test code See_Comment [Auto mated = 0990782142) message] The s ystem which generated this result transmitted reference range : 10*3/?L. The reference range was not used to interpret this result as normal/abnormal . GRAN MAT (NEUT) % 50.9 % (test code = 770-8) IMM GRAN % (test code 0.60 % = 0252757535) LYMPH % (test code = 35.9 % 736-9) MONO % (test code = 8.6 % 5905-5) EOS % (test code = 3.5 % 713-8) BASO % (test code = 0.5 % 706-2) GRAN MAT x10^3(ANC) 4.23 10*3/uL 1.99-6.95 (test code = 3966926870) IMM GRAN x10^3 (test 0.05 10*3/uL 0.00-0.06 code = 1656124576) LYMPH x10^3 (test code 2.98 10*3/uL 1.09-3.23 = 731-0) MONO x10^3 (test code 0.71 10*3/uL 0.36-1.02 = 742-7) EOS x10^3 (test code = 0.29 10*3/uL 0.06-0.53 711-2) BASO x10^3 (test code 0.04 10*3/uL 0.01-0.09 = 704-7) Lab Interpretation Abnormal (test code = 95485-8) [facility]14 22:37:17 Test Item Value Reference Range Interpretation Comments PHENYTOIN (test code = 10.5 ug/mL 10.0-20.0 9663303366) DARIN (test code = DARIN) Toxic Range: ? 0-3 Months ? Greater than 14 ug/mL ? ? 3 Months - 150 Years ? ? Greater than 20 ug/mL Lab Interpretation (test Normal code = 15930-2) General acute hospital WITH [id number] 21:31:57 Test Item Value Reference Range Interpretation Comments WBC (test code = See_Comment [Automated 3690-2) message] The sy stem which generated this result transmitted reference range : 4.20 - 10.70 10*3/?L. The reference range was not used to interpret this result as normal/abnormal . RBC (test code = See_Comment L [Automated 629-8) message] The sy stem which generated this [...] RDW-SD (test code = 45.7 fL 38.5-51.6 01464-0) RDW-CV (test code = 13.4 % 12.1-15.4 788-0) PLT (test code = See_Comment [Automated 777-3) message] The sy stem which generated this result transmitted reference range : 150 - 328 10*3/ ?L. The reference r esdras was not used to interpret this result as normal/abnormal . MPV (test code = 8.8 fL 9.8-13.0 L 62888-4) NRBC/100 WBC (test See_Comment [Automat ed code = 8695649587) message] The system which generated this result transmitted reference range : 0.0 - 10.0 /100 WBCs. The refer ence range was not u sed to interpret th is result as normal/abnormal . NRBC x10^3 (test code See_Comment [Auto mated = 8926095815) message] The s ystem which generated this result transmitted reference range : 10*3/?L. The reference range was not used to interpret this result as normal/abnormal . GRAN MAT (NEUT) % 43.3 % (test code = 770-8) IMM GRAN % (test code 0.40 % = 7488924286) LYMPH % (test code = 45.5 % 736-9) MONO % (test code = 7.9 % 5905-5) EOS % (test code = 2.3 % 713-8) BASO % (test code = 0.6 % 706-2) GRAN MAT x10^3(ANC) 4.48 10*3/uL 1.99-6.95 (test code = 2642625161) IMM GRAN x10^3 (test 0.04 10*3/uL 0.00-0.06 code = 9318217582) LYMPH x10^3 (test code 4.71 10*3/uL 1.09-3.23 H = 731-0) MONO x10^3 (test code 0.82 10*3/uL 0.36-1.02 = 742-7) EOS x10^3 (test code = 0.24 10*3/uL 0.06-0.53 711-2) BASO x10^3 (test code 0.06 10*3/uL 0.01-0.09 = 704-7) Lab Interpretation Abnormal (test code = 78178-1) [facility]. METABOLIC PANEL (63083)2022-08-25 21:09:32 Test Item Value Reference Range Interpretation Comments NA (test code = 137 mmol/L 135-145 0894822997) K (test code = 5.2 mmol/L 3.5-5.0 H 9799591018) CL (test code = 106 mmol/L 98-108 4125887677) CO2 TOTAL (test code = 23 mmol/L 23-31 0565409551) AGAP (test code = 2-16 9914419768) BUN (test code = 22 mg/dL 7-23 4539643560) GLUCOSE (test code = 99 mg/dL 70-110 7479239556) CREATININE (test code = 1.06 mg/dL 0.60-1.25 9496922466) TOTAL BILI (test code = 0.5 mg/dL 0.1-1.1 1689272661) CALCIUM (test code = 8.2 mg/dL 8.6-10.6 L 9380053981) T PROTEIN (test code = 7.4 g/dL 6.3-8.2 1299497946) ALBUMIN (test code = 4.1 g/dL 3.5-5.0 2006297394) ALK PHOS (test code = 158 U/L 34-122 H 6139204417) ALTv (test code = 36 U/L 5-50 1742-6) AST(SGOT) (test code = 37 U/L 13-40 3399373541) eGFR (test code = mL/min/1.73m2 8469169063) DARIN (test code = DARIN) Association of [...] tests). Lab Interpretation Abnormal (test code = 63693-9) [facility] [id number] 12:40:14 Test Item Value Reference Range Interpretation Comments PHENY FREE (test code 2.1 ug/mL 1.0-2.0 H = 2779766666) DARIN (test code = DARIN) Toxic Range: ? Greater than 2.5 ug/mL Test developed and characteristics determined by [facility] Laboratory Services. Lab Interpretation Abnormal (test code = 41298-9) [facility]OL[facility] PAN[facility] (NA, K, CL, CO2, GLUCOSE, BUN, CREATININE, CA)2021-08-21 11:15:55 Test Item Value Reference Range Interpretation Comments NA (test code = 138 mmol/L 135-145 0798537164) K (test code = 4.9 mmol/L 3.5-5.0 4648786166) CL (test code = 105 mmol/L 98-108 4562757313) CO2 TOTAL (test code = 27 mmol/L 23-31 8277632052) AGAP (test code = 2-16 6587713990) BUN (test code = 18 mg/dL 7-23 5141851902) GLUCOSE (test code = 93 mg/dL 70-110 6088966288) CREATININE (test code = 1.04 mg/dL 0.60-1.25 9029504584) CALCIUM (test code = 8.5 mg/dL 8.6-10.6 L 5246314307) eGFR (test code = mL/min/1.73m2 4732214020) DARIN (test code = DARIN) Association of [...] tests). Lab Interpretation Abnormal (test code = 88293-3) [facility]2022-01-10 11:15:55 Test Item Value Reference Range Interpretation Comments MAGNESIUM (test code = 3897732180) 2.2 mg/dL 1.7-2.4 Lab Interpretation (test code = Normal 65101-9) General acute hospital WITH [id number] 10:45:32 Test Item Value Reference Range Interpretation Comments WBC (test code = See_Comment [Automated 6690-2) message] The sy stem which generated this result transmitted reference range : 4.20 - 10.70 10*3/?L. The reference range was not used to interpret this result as normal/abnormal . RBC (test code = See_Comment L [Automated 789-8) message] The sy stem which generated this [...] RDW-SD (test code = 44.0 fL 38.5-51.6 08446-1) RDW-CV (test code = 13.2 % 12.1-15.4 788-0) PLT (test code = See_Comment [Automated 777-3) message] The sy stem which generated this result transmitted reference range : 150 - 328 10*3/ ?L. The reference r esdras was not used to interpret this result as normal/abnormal . MPV (test code = 8.6 fL 9.8-13.0 L 33949-9) NRBC/100 WBC (test See_Comment [Automat ed code = 8863309727) message] The system which generated this result transmitted reference range : 0.0 - 10.0 /100 WBCs. The refer ence range was not u sed to interpret th is result as normal/abnormal . NRBC x10^3 (test code <0.01 See_Comment [Auto mated = 3001719245) message] The s ystem which generated this result transmitted reference range : 10*3/?L. The reference range was not used to interpret this result as normal/abnormal . GRAN MAT (NEUT) % 38.4 % (test code = 770-8) IMM GRAN % (test code 0.20 % = 1241797498) LYMPH % (test code = 51.1 % 736-9) MONO % (test code = 7.5 % 5905-5) EOS % (test code = 2.4 % 713-8) BASO % (test code = 0.4 % 706-2) GRAN MAT x10^3(ANC) 3.56 10*3/uL 1.99-6.95 (test code = 2409215675) IMM GRAN x10^3 (test <0.03 0.00-0.06 code = 8768351108) LYMPH x10^3 (test code 4.74 10*3/uL 1.09-3.23 H = 731-0) MONO x10^3 (test code 0.70 10*3/uL 0.36-1.02 = 742-7) EOS x10^3 (test code = 0.22 10*3/uL 0.06-0.53 711-2) BASO x10^3 (test code 0.04 10*3/uL 0.01-0.09 = 704-7) REACT LYMPHS (test Rare code = 2219255840) GIANT PLATELETS (test Present See_Comment A [Auto mated code = 5908-9) message] The system which generated this result transmitted reference range : (none). The reference range was not used to interpret this result as normal/abnormal . Lab Interpretation Abnormal (test code = 01390-7) [facility] [id number] 03:34:42 Test Item Value Reference Range Interpretation Comments PHENY FREE (test code 2.5 ug/mL 1.0-2.0 H = 8606275035) DARIN (test code = DARIN) Toxic Range: ? Greater than 2.5 ug/mL Test developed and characteristics determined by [facility] Laboratory Services. Lab Interpretation Abnormal (test code = 72238-0) [facility] DallasGLYCOSYLATED HEMOGLOBIN (A1C)2021-08-20 00:41:54 Test Item Value Reference Range Interpretation Comments HGB A1C (test code = 5.8 % 4.0-5.7 H 4548-4) DARIN (test code = DARIN) Reference RangesNormal: <5.7%Prediabetes: 5.7 - 6.4%Diabetes: > 6.5% Lab Interpretation (test Abnormal code = 89493-4) [facility] DallasMagnesium [id number] 20:40:07 Test Item Value Reference Range Interpretation Comments MAGNESIUM (test code = 3213109804) 2.2 mg/dL 1.7-2.4 Lab Interpretation (test code = Normal 79920-4) [facility] DallasPhosphorus [id number] 20:40:06 Test Item Value Reference Range Interpretation Comments PHOSPHORUS (test code = 7793851016) 3.0 mg/dL 2.5-5.0 Lab Interpretation (test code = Normal 08756-9) [facility]2022-01-08 18:18:13 Test Item Value Reference Range Interpretation Comments PHENYTOIN (test code = 3.5 ug/mL 10.0-20.0 L 2608211748) DARIN (test code = DARIN) Toxic Range: ? 0-3 Months ? Greater than 14 ug/mL ? ? 3 Months - 150 Years ? ? Greater than 20 ug/mL Lab Interpretation (test Abnormal code = 65594-6) [facility] DallasCBC WITH [id number] 15:36:41 Test Item Value Reference Range Interpretation Comments WBC (test code = See_Comment H [Automated 6690-2) message] The sy stem which generated this result transmitted reference range : 4.20 - 10.70 10*3/?L. The reference range was not used to interpret this result as normal/abnormal . RBC (test code = See_Comment L [Automated 239-8) message] The sy stem which generated this [...] RDW-SD (test code = 43.9 fL 38.5-51.6 35861-4) RDW-CV (test code = 13.0 % 12.1-15.4 788-0) PLT (test code = See_Comment H [Automated 777-3) message] The sy stem which generated this result transmitted reference range : 150 - 328 10*3/ ?L. The reference r esdras was not used to interpret this result as normal/abnormal . MPV (test code = 8.8 fL 9.8-13.0 L 49798-0) NRBC/100 WBC (test See_Comment [Automat ed code = 2869580192) message] The system which generated this result transmitted reference range : 0.0 - 10.0 /100 WBCs. The refer ence range was not u sed to interpret th is result as normal/abnormal . NRBC x10^3 (test code <0.01 See_Comment [Auto mated = 6621120289) message] The s ystem which generated this result transmitted reference range : 10*3/?L. The reference range was not used to interpret this result as normal/abnormal . GRAN MAT (NEUT) % 50.8 % (test code = 770-8) IMM GRAN % (test code 0.50 % = 8976936881) LYMPH % (test code = 38.9 % 736-9) MONO % (test code = 7.3 % 5905-5) EOS % (test code = 2.2 % 713-8) BASO % (test code = 0.3 % 706-2) GRAN MAT x10^3(ANC) 5.92 10*3/uL 1.99-6.95 (test code = 5303814821) IMM GRAN x10^3 (test 0.06 10*3/uL 0.00-0.06 code = 2101451173) LYMPH x10^3 (test code 4.53 10*3/uL 1.09-3.23 H = 731-0) MONO x10^3 (test code 0.85 10*3/uL 0.36-1.02 = 742-7) EOS x10^3 (test code = 0.26 10*3/uL 0.06-0.53 711-2) BASO x10^3 (test code 0.04 10*3/uL 0.01-0.09 = 704-7) Lab Interpretation Abnormal (test code = 13075-9) [facility] Dallas[facility]YROID STIMULATING [id number] 15:29:39 Test Item Value Reference Range Interpretation Comments TSH (test code = See_Comment H [Automated message] 2479796124) The system [employer] generated this result transmitted ref erence range: 0.45 - 4 .70 mIU/L. The refe rence range was not u sed to interpret this result as normal/abnor mal. Lab Interpretation (test Abnormal code = 36351-1) [facility] DallasFREE [id number] 15:16:18 Test Item Value Reference Range Interpretation Comments FREE T4 (test code = See_Comment L [Autom ated message] 6033793486) The system [employer] generated this result transmitted ref erence range: 0.78 - 2 .20 ng/dL:. The ref erence range was not u sed to interpret this result as normal/abnor mal. Lab Interpretation (test Abnormal code = 55653-9) [facility] DallasTROPONIN [id number] 15:11:17 Test Item Value Reference Interpretation Comments Range TROPONIN I (test 0.011 ng/mL See_Comment [Automated code = 4306523368) message] The system which generated this result [...] biotin. Lab Interpretation Normal (test code = 76272-0) [facility] DallasN-TERMINAL [id number] 15:08:15 Test Item Value Reference Range Interpretation Comments NT-proBNP (test code 315 pg/mL See_Comment H [Autom ated = 9488530960) message] The system which generated this result transmitted reference range : <=125. The reference range was not used to interpret this result as normal/abnormal . DARIN (test code = DARIN) Biotin has been reported to cause a negative bias, interpret results relative to patient's use of biotin. Lab Interpretation Abnormal (test code = 11705-6) [facility] DallasETHANOL2022-01-08 15:00:12 Test Item Value Reference Range Interpretation Comments ALCOHOL (test code = <10 mg/dL 1229450686) DARIN (test code = DARIN) <10 Umyxqbfe43-579 Toxic>100 Depression of TRIBAL JUDGE>400 Fatalities Reported [facility] Dallas[facility]. METABOLIC PANEL (07051)2021-08-19 14:58:56 Test Item Value Reference Range Interpretation Comments NA (test code = 139 mmol/L 135-145 9530856098) K (test code = 4.7 mmol/L 3.5-5.0 2644488301) CL (test code = 106 mmol/L 98-108 4401393907) CO2 TOTAL (test code = 27 mmol/L 23-31 7470733136) AGAP (test code = 2-16 5769398028) BUN (test code = 20 mg/dL 7-23 7756690906) GLUCOSE (test code = 125 mg/dL 70-110 H 6802135539) CREATININE (test code = 0.92 mg/dL 0.60-1.25 9049966022) TOTAL BILI (test code = 0.2 mg/dL 0.1-1.8 5291672849) CALCIUM (test code = 8.3 mg/dL 8.6-10.6 L 7129095869) T PROTEIN (test code = 7.1 g/dL 6.3-8.2 7168030958) ALBUMIN (test code = 3.9 g/dL 3.5-5.0 7459028912) ALK PHOS (test code = 152 U/L 34-122 H 4101805649) ALTv (test code = 21 U/L 5-50 1742-6) AST(SGOT) (test code = 25 U/L 13-40 6832797660) eGFR (test code = mL/min/1.73m2 1211424680) DARIN (test code = DARIN) Association of [...] tests). Lab Interpretation Abnormal (test code = 06558-9) [id number] 14:58:36 Test Item Value Reference Range Interpretation Comments APTT Patient (test See_Comment [Automat ed code = 3173-2) message] The system which generated this result transmitted reference range : 23 - 38 Seconds . The reference range was not used to interpr et this result as normal/abnormal . DARIN (test code = DARIN) The [facility] patient population mean normal value for aPTT is 30 seconds. Lab Interpretation Normal (test code = 17459-5) [facility] / [id number] 14:56:36 Test Item Value Reference Range Interpretation [...] tions. Lab Interpretation (test Normal code = 93163-9) [facility] DallasL[facility] Acid Whole [id number] 14:18:15 Test Item Value Reference Range Interpretation Comments LACTIC ACID (test code = 1.65 mmol/L 0.50-2.20 [id number]) Lab Interpretation (test code = Normal 89122-5) [facility]- US ELASTO EACH [id number] 07:28:00 [facility] 1950 Sex: MPatient Name: GERA SPENCER Unit No: [id number] EXAMS: CPT CODE: [id number] US ELASTO EACH [id number] EXAM: US ELASTOGRAPHY LOCATION: C3 INDICATION: Possible [...] difference from prior study performed November 2020. at 0728 Reported and signed by: SARI MCDONALD M.D. 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 The reference range was not u sed to interpret this result as normal/abnormal . AB HEPATITIS B [id number] 13:13:00 Test Item Value Reference Range Interpretation Comments AB HEPATITIS B SURFACE (test code Nonreactive Nonreactive = HBSAB) AG HEPATITIS B [id number] 13:13:00 Test Item Value Reference Range Interpretation Comments AG HEPATITIS B SURFACE (test code Nonreactive Nonreactive = HBSAG) AB [id number] 13:13:00 Test Item Value Reference Range Interpretation Comments AB <20.0 Units 0.0-20.0 Negative 0.0 - 20.0 ANTI-MITOCHONDRIAL Equivocal 20.1 - 24.9 (test code = Positive MITOAB) >24.9Mitochondr ial (M2) Antibodies are found in 90-96% ofpatien ts with primary biliary cirrhosis.Perfo rmed At: BN [facility] Jzggfuhzys8569 [facility] TANJA Ricks [id number] ra Freddy JOHNSON Ph:[phone] ANTINUCLEAR ANTIBODIES [id number] 13:12:00 Test Item Value Reference Range Interpretation Comments KATYA SCREEN (test Negative See_Comment Negative < 1:80 code = ANASCR) Borderline 1: 80 Positive >1:80Performed At: [facility] [place] [address] [place], [place] [id number] Kyle L MD Ph:[phone] [ Automated message] The sy stem which generated this result transmitted ref erence range: (). The reference range was not u sed to interpret this result as normal/abnormal . AB HEPATITIS B [id number] 13:12:00 Test Item Value Reference Range Interpretation Comments AB HEPATITIS B SURFACE (test code Nonreactive Nonreactive = HBSAB) AG HEPATITIS B [id number] 13:12:00 Test Item Value Reference Range Interpretation Comments AG HEPATITIS B SURFACE (test code Nonreactive Nonreactive = HBSAG) AB [id number] 13:12:00 Test Item Value Reference Range Interpretation Comments AB ANTI-MITOCHONDRIAL See_Comment [Auto mated message] The (test code = MITOAB) system which generated this result transmit temi reference range : <1:20. The reference range was not used to interpr et this result as sanjay l/abnormal. - US ABDOMEN [id number] 11:21:00 [facility] : 1950 Sex: MPatient Name: GERA SPENCER JR Unit No: [id number] EXAMS: CPT CODE: [id number] US ABDOMEN COMPLETE 30299 CLINICAL HISTORY: abnormal liver enzymes. LOCATION: A1 FINDINGS: Real-time grayscale sonographic evaluation of the abdomen is performed with limited color Doppler evaluation. Comparison is made with CT abdomen/pelvis without contrast dated November 26, 2020. Please note that visualization is signif icantly limited by patient body habitus. The visualized portions of the liver appear to be within normal limits. There is no evidence of intra or extrahepatic biliary ductal dilatation. The common bileduct measures 5 mm in width. The gallbladder is within normal limits. The pancreas is normal in appearance. The kidneys demonstrate normal cortical echogenicity. The right kidney measures 10.2 cm and the left kidney measures 9.1 cm. Small echogenic foci are present throughout the spleen consistent with calcifications seen on CT. These are likely secondary to old granulomatous disease. The spleen measures 9.4 cm. No free fluid noted. The aorta demonstrates normal caliber. The IVC appears to be within normal limits. IMPRESSION: 1. No significant abnormalities are identified on this study limited by patient body habitus. The liver in particular is poorly visualized. at 1121 Reported and signed by: KIRAN MORA M.D. CC: Julien Coronel Jr, MD; Guy Marcial MD Technologist: Kayy Suarez Probe: Trscr Dt/Tm: 12/20/2020 (1121) by:[email or web address] Printed Date/Time: 12/20/2020 (1125) Name: GERA SPENCER [facility] Phys: Julien Self Jr, MD [address] : 1950 Age: 70 Sex: [place] [address] Loc: ALISIA Exam Date: 12/20/2020 Status: REG REF PH: FAX: PAGE 1 Signed ReportALPHA 1 [id number] 14:09:00 Test Item Value Reference Range Interpretation Comments ALPHA 1 ANTITRYPSIN (test code = [id number]) [id number] 14:09:00 Test Item Value Reference Range Interpretation Comments CERULOPLASMIN (test code = CER) 29.5 mg/dL 16.0-31.0 [id number] 14:09:00 Test Item Value Reference Range Interpretation Comments FERRITIN (test code = 53.7 ng/mL 22.0-322.0 N Please note: New LEANDER) Reference Range Sep 2020 ALPHA 1 [id number] 14:09:00 Test Item Value Reference Range Interpretation Comments ALPHA 1 ANTITRYPSIN 155 mg/dL 101-187 Performe d At: DA (test code = WMQH7NLL) [facility] [address] [place], [place] [id number] h MICAELA JOHNSON Ph:[phone] [id number] 14:09:00 Test Item Value Reference Range Interpretation Comments CERULOPLASMIN (test code = CER) 29.5 mg/dL 16.0-31.0 [id number] 14:09:00 Test Item Value Reference Range Interpretation Comments FERRITIN (test code = 53.7 ng/mL 22.0-322.0 N Please note: New LEANDER) Reference Range Sep 2020 CBC W/AUTO [id number] 07:55:00 Test Item Value Reference Range Interpretation [...] 0.09 x10 3/uL 0.0-0.20 N COMPREHENSIVE METABOLIC [id number] 07:05:00 Test Item Value Reference Range Interpretation [...] Feb code = ALKP) 2020 LIVER FUNCTION [id number] 07:05:00 Test Item Value Reference Range Interpretation Comments BILIRUBIN DIRECT < 0.1 mg/dL <0.3 N Please note : New (test code = BILD) Reference Range Sep 2020 CBC W/AUTO [id number] 06:47:00 Test Item Value Reference Range Interpretation [...] = EO#) x10 3/uL 0.00-0.45 ANTINUCLEAR ANTIBODIES [id number] 10:30:00 Test Item Value Reference Range Interpretation Comments KATYA SCREEN (test code = ANASCR) AB HEPATITIS B [id number] 10:30:00 Test Item Value Reference Range Interpretation Comments AB HEPATITIS B SURFACE (test code Nonreactive Nonreactive = HBSAB) AG HEPATITIS B [id number] 10:30:00 Test Item Value Reference Range Interpretation Comments AG HEPATITIS B SURFACE (test code Nonreactive Nonreactive = HBSAG) AB [id number] 10:30:00 Test Item Value Reference Range Interpretation Comments AB ANTI-MITOCHONDRIAL See_Comment [Auto mated message] The (test code = MITOAB) system which generated this result transmit temi reference range : <1:20. The reference range was not used to interpr et this result as sanjay l/abnormal. AB [id number] 10:30:00 Test Item Value Reference Range Interpretation Comments AB TREPONEMA (test code = TREPAB) NONREACTIVE NONREACTIVE ALPHA 1 [id number] 10:17:00 Test Item Value Reference Range Interpretation Comments ALPHA 1 ANTITRYPSIN (test code = QROF7COH) [id number] 10:17:00 Test Item Value Reference Range Interpretation Comments CERULOPLASMIN (test code = CER) [id number] 10:17:00 Test Item Value Reference Range Interpretation Comments FERRITIN (test code = 53.7 ng/mL 22.0-322.0 N Please note: New LEANDER) Reference Range Sep 2020 ALPHA FETOPROTEIN TUMOR [id number] 10:17:00 Test Item Value Reference Range Interpretation Comments ALPHA FETOPROTEIN < 2.2 ng/dL <8.1 N Please not e: New TUMOR MARKER (test Reference Range Feb code = AFPTM) 2020 COMPREHENSIVE METABOLIC [id number] 06:19:00 Test Item Value Reference Range Interpretation [...] Feb code = ALKP) 2020 CBC W/AUTO [id number] 06:12:00 Test Item Value Reference Range Interpretation [...] 3/uL 0.0-0.20 N COVID 19 Asymptomatic IH [id number] 16:30:00 Test Item Value Reference Range Interpretation [...] beconsidered in the context of a pa tient's recent exposure s,history and the presenc e of clinical signs and symptomsconsist ent with COVID-19. COMPREHENSIVE METABOLIC [id number] 06:07:00 Test Item Value Reference Range Interpretation [...] Feb code = ALKP) 2020 CBC W/AUTO [id number] 05:49:00 Test Item Value Reference Range Interpretation [...] 0.05 x10 3/uL 0.0-0.20 N COMPREHENSIVE METABOLIC [id number] 09:41:00 Test Item Value Reference Range Interpretation [...] PHOSPHATASE (test code = ALKP) COMPREHENSIVE METABOLIC [id number] 09:41:00 Test Item Value Reference Range Interpretation [...] Feb code = ALKP) 2020 CBC W/AUTO [id number] 09:25:00 Test Item Value Reference Range Interpretation [...] 0.05 x10 3/uL 0.0-0.20 N COMPREHENSIVE METABOLIC [id number] 06:46:00 Test Item Value Reference Range Interpretation [...] note: Ne w PHOSPHATASE (test Reference Range Sep code = ALKP) 2020 CBC W/AUTO [id number] 06:32:00 Test Item Value Reference Range Interpretation [...] 3/uL 0.0-0.20 N - MRI BRAIN W/O [id number] 13:10:00 [facility] 1950 Sex: MPatient Name: GERA SPENCER Unit No: [id number] EXAMS: CPT CODE: [id number] MRI BRAIN W/O CONTRAST 30218 EXAM: MRI of the Brain without contrast Location: A1 HISTORY: Altered mental status and respiratory failure COMPARISON: Correlation with CT from 12/02/2020 TECHNIQUE: Sagittal T1, axial T1, T2, FLAIR, T2 gradient, diffusion with ADC mapping and coronal FLAIR and diffusion with ADCweighted tadeo ges of the brain and brainstem were obtained without contrast. FINDINGS: Postoperative changes include a right frontoparietal temporal craniotomy. There is T1 hyperintense fluid collection subjacent tothe craniotomy flap and overlying the right cerebral convexity likely representing subacute subdural hematoma. There is mild associated diffusion abnormality within [...] within the subcortical right frontal lobe Name: GERA SPENCER JR [facility] Phys: Guy Villar MD [address] : 1950 Age: 70 Sex: M [place] [address] Loc: P.PSCLIEN Exam Date: 12/08/2020 Status: REG REF PH: FAX: PAGE 1 Signed Report (CONTINUED) Patient Name: GERA SPENCER Unit No: [id number] EXAMS: CPT CODE: [id number] MRI BRAIN W/O CONTRAST 04398 <Continued> may represent sequelae of edema. No significant mass effect is seen. 3. Further chronic small vessel ischemic white matter disease. 4. Mild inflammatory disease of bilateral mastoid air cells and ethmoidair cells. at 1310 Reported and signed by: CHIRAG MEJIA M.D. CC: Guy Marcial MD Technologist: Lamin Felipe [facility] [email or web address] Dt/Tm: 12/08/2020 (1310) by:[email or web address] Printed Date/Time: 12/08/2020 (1314) Name: GERA SPENCER JR [facility] Phys: Guy Villar MD [address] DOB: 1950 Age: 70 Sex: M [place] [address] Acct No: [id number] Loc: P.PSCLIEN Exam Date: 12/08/2020 Status: REG REF PH: FAX: PAGE 2 Signed ReportDILANTIN (PHENYTOIN)2020-12-08 06:37:00 Test Item Value Reference Range Interpretation Comments DILANTIN 6.0 mcg/mL 10.0-20.0 L INTERPRETATIVE (PHENYTOIN) (test DATA:Thera peutic range: code = DIL) 10 - 20 mcg/mL Toxic: >20 mcg/mL Plea se refer to Medication Administration Record (MAR) forlast d ose date and time. COMPREHENSIVE METABOLIC [id number] 06:51:00 Test Item Value Reference Range Interpretation [...] Feb code = ALKP) 2020 CBC W/AUTO [id number] 06:30:00 Test Item Value Reference Range Interpretation [...] 3/uL 0.0-0.20 N - XR CHEST 1 [id number] 07:58:00 [facility] : 1950 Sex: MPatient Name: GERA SPENCER Unit No: [id number] EXAMS: CPT CODE: [id number] XR CHEST 1 V [id number], SINGLE VIEW DICTATION LOCATION A1 HISTORY: Respiratory [...] (0758) by:Jian Printed Date/Time: 12/06/2020 (0802) Name: JOHANNAGERA Parikh JR [facility] Phys: River Quintanilla MD [address] : 1950 Age: 70 Sex: [place] [address] Loc: ALISIA Exam Date: 12/06/2020 Status: REG REF PH: FAX: PAGE 1 Signed ReportCOMPREHENSIVE METABOLIC [id number] 07:07:00 Test Item Value Reference Range Interpretation [...] Feb code = ALKP) 2020 CBC W/AUTO [id number] 06:56:00 Test Item Value Reference Range Interpretation [...] 3/uL 0.0-0.20 N - CT HEAD/BRAIN W/O [id number] 10:54:00 [facility] : 1950 Sex: MPatient Name: GERA SPENCER Unit No: [id number] EXAMS: CPT CODE: [id number] CT HEAD/BRAIN W/OCONT 09580 EXAM: CT Head without contrast Location: A1 HISTORY: Subdural hematoma, respiratory failure COMPARISON: None available. TECHNIQUE: Multiple transaxial images of the brain were obtained without intravenous contrast. Images were reformatted to create coronal and sagittal reconstructions. One or more of the following dose reduction techniques were used: Automated exposure control, adjustment of the mA and/or kV according to patient size, and/or utilization of iterative reconstruction technique. DLP: 891 mGy-cm. FINDINGS: Postoperative changes include a right frontal lobe parietotemporal craniotomy. There is low attenuating fluid collection overlying the right cerebral convexity and subjacent to the craniotomy flap. Larger collection is noted more anteriorly over the frontal convexity and measures up to 9.5 mm. There is mass effect on the adjacent sulci. There is focal loss of izquierdo-white differentiation in the right frontal lobe. There is further low attenuation within subcortical white matter with sparing of the overlying cortex. There is mass effect on the adjacent sulci of the right cerebral hemisphere. If prior imaging is available, comparison is recommended. There is mild mass effect on the right lateral ventricle. There is no midline shift. The remaining izquierdo-white differentiation is maintained. There is no evidence for acute major vessel infarct. There is mucosal thickening ofthe bilateral ethmoid air cells and bilateral maxillary sinuses and right frontal sinus. There is sma ll fluid within the right mastoid air cells. Intraorbital contents are within normal limits. Note is made of bilateral lens replacement. Bones of the calvaria and skull base are intact. IMPRESSION: 1.Postoperative changes include a right frontoparietal temporal craniotomy. [...] is available, then comparison is recommended. Name: GERA SPENCER JR [facility] Phys: Guy Villar MD [address] DOB: 1950 Age: 70 Sex: M [place], [place] [address] Loc: P.PSCLIEN Exam Date: 12/02/2020 Status: REG REF PH: FAX: PAGE 1 Signed Report (CONTINUED) Patient Name: GERA SPENCER Unit No: [id number] EXAMS: CPT CODE: [id number] CT HEAD/BRAIN W/O CONT 59677 <Continued> 2. Small low attenuating focus in [...] Dt/Tm: 12/02/2020 (1054) by:[email or web address] Printed Date/Time: 12/02/2020 (6727) Name: GERA SPENCER JR [facility] Phys: Guy Villar MD [address] DOB: 1950 Age: 70 Sex: M [place], [place] [address] Loc: P.PSCLIEN Exam Date: 12/02/2020 Status: REG REF PH: FAX: PAGE 2 Signed ReportCOMPREHENSIVE METABOLIC [id number] 07:02:00 Test Item Value Reference Range Interpretation [...] Reference Range Feb code = ALKP) 2020 [id number] 07:02:00 Test Item Value Reference Range Interpretation Comments PHOSPHOROUS (test code 3.9 mg/dL 2.4-5.1 N Pleas e note: New = PHOS) Reference Range Sep 2020 [id number] 07:02:00 Test Item Value Reference Range Interpretation Comments MAGNESIUM (test code = 2.1 mg/dL 1.6-2.6 N Pleas e note: New MAG) Reference Range Sep 2020 CBC W/AUTO [id number] 06:33:00 Test Item Value Reference Range Interpretation [...] 3/uL 0.0-0.20 N - XR CHEST 1 [id number] 07:43:00 [facility] : 1950 Sex: MPatient Name: GERA SPENCER Unit No: [id number] EXAMS: CPT CODE: [id number] XR CHEST 1 V [id number] one view portable 12/01/2020 7:43 AM CLINICAL INDICATION: Respiratory failure COMPARISON: 11/22/2020 LOCATION: W1 IMPRESSION: There has been no significant interval change when compared to the previous examination. Cardiomediastinal contours are stable. Central pulmonary vasculature congestion andbilateral interstitial opacities are unchanged. at 0743 Reported and signed by: ASHLEY CAMPBELL M.D. CC: River Issa MD; Guy Marcial MD Technologist: Dana Guillermo Fluoro Time: DAP (Gy m2): Air Kerma (mGy): Trscr Dt/Tm: 12/01/2020 (0743) by:[email or web address] Printed Date/Time: 12/01/2020 (0746) Name: JOHANNAGERA JR [facility] Phys: River Quintanilla MD [address] : 1950 Age: 70 Sex: [place] [address] Loc: ALFREDITOEN Exam Date: 12/01/2020 Status: REG REF PH: FAX: PAGE 1 Signed ReportRENAL FUNCTION [id number] 07:48:00 Test Item Value Reference Range Interpretation [...] PHOS) Reference Range Sep 2020 COMPREHENSIVE METABOLIC [id number] 07:19:00 Test Item Value Reference Range Interpretation [...] Feb code = ALKP) 2020 CBC W/AUTO [id number] 06:57:00 Test Item Value Reference Range Interpretation [...] 0.0-0.20 N - CT ABD PELVIS W/O [id number] 20:08:00 [facility] : 1950 Sex: MPatient Name: GERA SPENCER JR Unit No: [id number] EXAMS: CPT CODE: [id number] CT ABD PELVIS W/O CONT 87635 LOCATION: H43 EXAM: - CT ABD PELVIS [...] The gallbladder is unremarkable. No biliary duct dil atation. Pancreas: Unremarkable. Adrenal glands: Normal. Kidneys: No radiopaque nephrolithiasis, hydronephrosis or significant perinephric fluid. Vascular: Mild atherosclerosis normal caliber abdominalaorta. Lymph nodes: No abdominal lymphadenopathy. Pelvic structures: The urinary bladder is unremarkably distended. No pelvic lymphadenopathy or free fluid. The prostate gland is nonenlarged. Fat-containing right inguinal hernia is present. Gastrointestinal tract:There is localized edema change withinthe mesenteric fat associated with the presence of nonpathologically enlarged mesenteric lymph nodes, consistent with mesenteric panniculitis. No abnormal bowel dilatation. No pathologically dilated appendix or focal inflammatory changes in the right lower quadrant. No focal fluid collections, ascitesor evidence of pneumoperitoneum. 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 Nodularities along the ventral abdominal wall consistent with sequela of subcutaneous reduction. IMPRESSION: 1. 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 2. Additional chronic findings above. at 2007 Reported and signed by: ALICIA BARTON M.D. CC: Ismael Julio Jr, MD; Guy Marcial MD Technologist: PHILIP Griffin(Blanca)(CT) CTDI: 28.37 DLP: 1469.0 Trscr Dt/Tm: 11/26/2020 (2007) by:[email or web address] Printed Date/Time: 11/26/2020 (2011) Name: GERA SPENCER JR [facility] Phys: Ismael Whiting Jr, MD [address]OB: 1950 Age: 70 Sex: [place] [address] Loc: ALISIA Exam Date: 11/26/2020 Status: REG REF PH: FAX: PAGE 2 Signed Report- CT CHEST W/O [id number] 19:33:00 [facility] : 1950 Sex: MPatient Name: GERA SPENCER JR Unit No: [id number] EXAMS: CPT CODE: [id number] CT CHEST W/O CONTRAST 12185 LOCATION: [facility] EXAM: - CT CHEST W/O CONTRAST HISTORY: [...] present in the bilateral posterior lower lobe whichmay represent developing infiltrate. There is no confluent consolidation. Scattered nodular foci measuring up to 7 mm are present. These may represent an artifact due to respiratory motion. The tracheaand central bronchi are patent. There is no pneumothorax. Evaluation the visualized portion of the upper abdomen a few scattered hepatic and splenic calcified granulomas are noted.. IMPRESSION: Mild patchy groundglass density changes are present in the bilateral lower lobe, which may represent developing infiltrate. A few scattered nodular foci measuring up to 6 mm are present. There are appearance may result present artifact related to respiratory motion. However, follow-up is recommended to exclude the presence of a true pulmonary nodule. In a low or high risk patient, recommend CT follow up at 3-6 months, then consider follow up at 18-24 months. at 1933 Reported and signed by: ALICIA BARTON M.D. Name: GERA SPENCER JR [facility] Phys: Ismael Whiting Jr, MD [address] : 1950 Age: 70 Sex: [place] [address] Loc: PNADJAEN Exam Date: 11/26/2020 Status: REG REF PH: FAX: PAGE 1 Signed Report (CONTINUED) Patient Name: GERA SPENCER JR Unit No: [id number] EXAMS: CPT CODE: [id number] CHEST W/O CONTRAST 35666 <Continued> CC: Ismael Julio Jr, MD; Guy Marcial MD Technologist: PHILIP Griffin(R)(CT) CTDI: 25.36 DLP: 839.4 Trscr Dt/Tm: 11/26/2020 (1932) by:[email or web address] Printed Date/Time: 11/26/2020 (1935) Name: GERA SPENCER JR [facility] Phys: Ismael Whiting Jr, MD [address] : 1950 Age: 70 Sex: [place] [address] Loc: ALFREDITOEN Exam Date: 11/26/2020 Status: REG REF PH: FAX: PAGE 2 Signed ReportAB HEPATITIS [id number] 08:04:00 Test Item Value Reference Range Interpretation Comments AB HEPATITIS C (test code = Nonreactive Nonreactive HCVAB) - US ELASTO EACH [id number] 15:05:00 [facility] 1950 Sex: MPatient Name: GERA SPENCER JR Unit No: [id number] EXAMS: CPT CODE: [id number] US ELASTO EACH ORG 30770 EXAM: US ELASTOGRAPHY LOCATION: A1 INDICATION: Chronic liver disease ADDITIONAL INFORMATION: None. COMPARISON: None. TECHNIQUE: 8 elastography samples were obtained from the liver. FINDINGS: Evaluation was limited due to patient body habitus and inability to cooperate. Average liver stiffness is 17.66 kPa IQR is 6.8 kPa. IQR/Median is 38.5 %. IMPRESSION: Limited study. Average liver stiffness suggests Cirrhosis (Metavir Score F4; >11.9 kPa). However, IQR/Median is greater than 30% which suggests data set may not be reliable. Electronically Signed by SARI MCDONALD M.D. on at 1505 Reported and signed by: SARI MCDONALD M.D. CC: River Issa MD; Guy Marcial MD Technologist: Tai Ritchie Probe: Trscr Dt/Tm: 11/24/2020 (6211) by:[email or web address] Printed Date/Time: 11/24/2020 (7565) Name: GERA SPENCER [facility] Phys: River Quintanilla MD [address] : 1950 Age: 70 Sex: [place] [address] Loc: DEBORAHLIENExam Date: 11/24/2020 Status: REG REF PH: FAX: PAGE 1 Signed [id number] - GLYCOSYLATED [id number] 07:42:00 Test Item Value Reference Range Interpretation Comments GLYCOSYLATED HEMOGLOBIN 5.5 % <5.7 N Diab etic </= (HA1C) (test code = 6.5%Pred iabetes GLYHGB) 5.7-6.4%Normal < 5.7% BASIC METABOLIC [id number] 07:04:00 Test Item Value Reference Range Interpretation [...] CA) Reference Range Sep 2020 COMPREHENSIVE METABOLIC [id number] 07:04:00 Test Item Value Reference Range Interpretation [...] ALKP) Reference Range Sep 2020 BASIC METABOLIC [id number] 06:34:00 Test Item Value Reference Range Interpretation [...] CA) Reference Range Sep 2020 COMPREHENSIVE METABOLIC [id number] 06:34:00 Test Item Value Reference Range Interpretation [...] ALKP) Reference Range Sep 2020 CBC W/AUTO [id number] 06:02:00 Test Item Value Reference Range Interpretation [...] 0.06 x10 3/uL 0.0-0.20 N LIVER FUNCTION [id number] 22:06:00 Test Item Value Reference Range Interpretation [...] = ALKP) Reference Range Sep 2020 T4 [id number] 22:06:00 Test Item Value Reference Range Interpretation Comments T4 FREE (test code 0.93 ng/dL 0.89-1.76 N Please no te: New = T4F) Reference Range Sep 2020 LIVER FUNCTION [id number] 20:58:00 Test Item Value Reference Range Interpretation [...] = ALKP) Reference Range Sep 2020 T4 [id number] 20:58:00 Test Item Value Reference Range Interpretation Comments T4 FREE (test code = T4F) ng/dL 0.89-1.76 [id number] 20:58:00 Test Item Value Reference Range Interpretation [...] d ose date and time. COMPREHENSIVE METABOLIC [id number] 08:15:00 Test Item Value Reference Range Interpretation [...] Reference Range Feb code = ALKP) 2020 [id number] 08:15:00 Test Item Value Reference Range Interpretation Comments PHOSPHOROUS (test code 3.1 mg/dL 2.4-5.1 N Pleas e note: New = PHOS) Reference Range Sep 2020 [id number] 08:15:00 Test Item Value Reference Range Interpretation Comments MAGNESIUM (test code = 2.1 mg/dL 1.6-2.6 N Pleas e note: New MAG) Reference Range Sep 2020 PROTHROMBIN [id number] 07:56:00 Test Item Value Reference Range Interpretation [...] 2.5-3.5recurren t systemic emboli sm. THROMBOPLASTIN TIME [id number] 07:56:00 Test Item Value Reference Range Interpretation Comments THROMBOPLASTIN TIME 29.1 SECONDS 23.8-34.8 N INTERPRE TATIVE PARTIAL (test code = : erapeutic PTT) range: Unfractionated heparin:55 - 80 seconds Argatroban:1.5 to 3 times the basel ine PTT CBC W/AUTO [id number] 07:53:00 Test Item Value Reference Range Interpretation [...] 3/uL 0.0-0.20 N - XR CHEST 1 [id number] 03:28:00 [facility] 1950 Sex: MPatient Name: GERA SPENCER Unit No: [id number] EXAMS: CPT CODE: [id number] XR CHEST 1 V [id number] EXAM: - XR CHEST 1 V HISTORY: Respiratory failure COMPARISON: None FINDINGS: Patchy retrocardiacairspace opacities. No pleural effusion or pneumothorax. The cardiac silhouette is within normal limits. No acute osseous abnormalities. IMPRESSION: Retrocardiac atelectasis, pulmonary edema and/or pneu monia. at 0328 Reported and signed by: RIOS PA M.D. CC: Guy Marcial MD Technologist: Sue Donato Time: DAP (Gy m2): Air Kerma (mGy): Trscr Dt/Tm: 11/23/2020 (032) by:[email or web address] Printed Date/Time: 11/23/2020 (033) Name: GERA SPENCER JR [facility] Phys: [id number] - Guy Marcial MD [id number] : 1950 Age: 70 Sex: [place] [id number] Loc: [facility] Exam Date: 11/22/2020 Status: REG REF PH: FAX: PAGE 1 Signed Report"
[2023-06-20] MEDS ORDERED: CYCLOBENZAPRINE 10 MG TAB ONE (23:28)
[2023-06-20 23:34] LABS: Absolute Lymphocytes (CBC) 3.8 K/uL (0.7-4.9); Hematocrit 36.2 % (39.6-49.0); Lymphocytes % 37.6 % (15.3-44.8); MCV 94.3 fL (80-100); MPV 6.5 fL (7.6-11.3); Platelets 302 thou/uL (152-406); RBC Red Blood Cell Count 3.84 M/uL (4.33-5.43)
[2023-06-20 23:49] LABS: Albumin 3.2 g/dL (3.4-5.0); Bilirubin Total 0.2 mg/dL (0.2-1.0); Magnesium 2.2 mg/dL (1.6-2.4); Potassium 4.6 mEq/L (3.5-5.1)
--- NOTE | 2023-06-21 00:01 | ER ---
Nurse's Notes [facility] Name: Eleno Grossman Jr Age: 72 yrs Sex: Male : 1950 Arrival Date: 06/20/2023 Time: 21:28 Bed 15 Private MD: Diagnosis: Cramp and spasm Presentation: 06/20 21:43 Chief complaint: Patient states: last Saturday, i was taken off of Dilantin and put on kd3 gabapentin because my new neurologist thought it would work better. But now my hips hurt and i have pain all over my body and muscle stiffness. My legs are also getting red and they hurt. 21:43 Method Of Arrival: Wheelchair kd3 21:45 Ebola Screen: No symptoms or risks identified at this time. Initial Sepsis Screen: Does kd3 the patient meet any 2 criteria? No. Patient's initial sepsis screen is negative. Does the patient have a suspected source of infection? No. Patient's initial sepsis screen is negative. Risk Assessment: Do you want to hurt yourself or someone else? Patient reports no desire to harm self or others. Onset of symptoms was June 20, 2023. 21:45 Acuity: MORENA 3 kd3 21:46 Coronavirus screen: Vaccine status: Patient reports being unvaccinated. kd3 Triage Assessment: 21:46 General: Appears in no apparent distress. Behavior is calm, cooperative. Pain: kd3 Complains of pain in right leg and left leg. Historical: - Allergies: 21:46 PENICILLINS; kd3 - PMHx: 21:46 Cerebrovascular accident; Hypertensive disorder; Arthritis; subdural hematoma; tremors; kd3 - Immunization history:: Adult Immunizations up to date. - Social history:: Smoking status: Patient denies any tobacco usage or history of. - Family history:: not pertinent. Screenin:30 [facility] ED Fall Risk Assessment (Adult) History of falling in the last 3 months, rv including since admission Yes- single mechanical fall (1 pt) Score/Fall Risk Level 3 or more points = High Risk Oriented to surroundings, Maintained a safe environment, Educated pt \T\ family on fall prevention, incl call for assistance when getting out of bed, Assessed \T\ reinforced patient's understanding of fall precautions, Provided non-skid footwear, Hourly rounding (assess needs \T\ fall precautionary measures) done, Used ambulatory aids as needed (educated on \T\ assisted with), Used gait belt as appropriate Implemented a Fall Risk Plan of Care, Apply high fall risk patient identification: yellow non skid footwear/ fall signage, Placed fall mat w/ non beveled edge next to bed, Activated bed/chair alarm, Remained w/in arm's length of patient and in sight while toileting, Offered frequent toileting (1:1 observation), Remained with patient while ambulating, Utilized family, sitter, or virtual camp guard as indicated. Abuse screen: Denies threats or abuse. Denies injuries from another. Nutritional screening: No deficits noted. Tuberculosis screening: No symptoms or risk factors identified. Assessment: 22:30 General: Appears uncomfortable, Behavior is calm, cooperative. rv 22:30 Pain: Complains of pain in back. Neuro: Level of Consciousness is awake, alert, obeys rv commands. Cardiovascular: Capillary refill < 3 seconds Patient's skin is warm and dry. Respiratory: Airway is patent Respiratory effort is even, unlabored, Breath sounds are clear bilaterally. Vital Signs: 21:45 BP 136 / 64; Pulse 70; Resp 17; Temp 98.1; Pulse Ox 95% on R/A; kd3 ED Course: 21:33 Patient arrived in ED. mr 21:34 Julio Cesar Stallworth MD is Attending Physician. rt 21:46 Triage completed. kd3 21:46 Arm band placed on right wrist. kd3 22:30 Patient has correct armband on for positive identification. Provided Education on: rv MUSCLE RELAXANT. Client placed on continuous cardiac and pulse oximetry monitoring. NIBP monitoring applied. cardiac monitor technician on. 22:30 No provider procedures requiring assistance completed. IV discontinued, intact, rv bleeding controlled, No redness/swelling at site. Pressure dressing applied. 23:11 Alexander Montero RN is Primary Nurse. rv 23:25 Inserted saline lock: 20 gauge in right antecubital area, using aseptic technique. rv Blood collected. Administered Medications: 23:18 Drug: Cyclobenzaprine PO 10 mg PO once Route: PO; rv Medication: 22:30 VIS not applicable for this client. rv Outcome: 22:30 Discharged to home ambulatory, with family, rv 22:30 Condition: good 22:30 Discharge instructions given to patient, family, Instructed on discharge instructions, follow up and referral plans. medication usage, Demonstrated understanding of instructions, follow-up care, medications, Prescriptions given X 2, 06/21 00:00 Discharge ordered by . rt 00:26 Patient left the ED. rv Signatures: Harini Shearer, Jeramine Dean mr Alexander Montero, RN RN Nae Valdez RN RN kd3 Julio Cesar Stallworth MD MD rt
--- NOTE | 2023-06-21 00:02 | EDPHYS ---
Physician Documentation [facility] Name: Eleno Grossman Jr Age: 72 yrs Sex: Male : 1950 Arrival Date: 06/20/2023 Time: 21:28 Bed 15 Private MD: ED Physician Julio Cesar Stallworth HPI: 06/21 01:03 This 72 yrs old Male presents to ER via Wheelchair with complaints of Pain All Over, rt Trouble Walking. 01:03 Patient recently had a change from Dilantin to gabapentin for his seizure disorder rt after being diagnosed with neuropathy. Patient reports that his neurologist has been down titrating the Dilantin. States that he has developed a cramping sensation to his bilateral extremities that makes it difficult for him to walk. The said that his feet were red earlier, not currently. Denies other acute complaints at this time, symptoms are cramping in nature, nonradiating, no other aggravating or alleviating factors.. Historical: - Allergies: 06/20 21:46 PENICILLINS; kd3 - PMHx: 21:46 Cerebrovascular accident; Hypertensive disorder; Arthritis; subdural hematoma; tremors; kd3 - Immunization history:: Adult Immunizations up to date. - Social history:: Smoking status: Patient denies any tobacco usage or history of. - Family history:: not pertinent. ROS: 06/21 01:03 Constitutional: Negative for fever, chills, and weight loss, Cardiovascular: Negative rt for chest pain, palpitations, and edema, Respiratory: Negative for shortness of breath, cough, wheezing, and pleuritic chest pain, Abdomen/GI: Negative for abdominal pain, nausea, vomiting, diarrhea, and constipation, Neuro: Negative for headache, weakness, numbness, tingling, and seizure, Psych: Negative for depression, anxiety, suicide ideation, homicidal ideation, and hallucinations, MS/extremity: Positive for pain, Negative for injury or acute deformity, Skin: Positive for erythema, Negative for ulceration, Exam: 01:03 Constitutional: This is a well developed, well nourished patient who is awake, alert, rt and in no acute distress. Head/Face: Normocephalic, atraumatic. Chest/axilla: Normal chest wall appearance and motion. Nontender with no deformity. No lesions are appreciated. Cardiovascular: Regular rate and rhythm with a normal S1 and S2. No gallops, murmurs, or rubs. Normal PMI, no JVD. No pulse deficits. Respiratory: Lungs have equal breath sounds bilaterally, clear to auscultation and percussion. No rales, rhonchi or wheezes noted. No increased work of breathing, no retractions or nasal flaring. Abdomen/GI: Soft, non-tender, with normal bowel sounds. No distension or tympany. No guarding or rebound. No evidence of tenderness throughout. Neuro: Awake and alert, GCS 15, oriented to person, place, time, and situation. Cranial nerves II-XII grossly intact. Motor strength 5/5 in all extremities. Sensory grossly intact. Cerebellar exam normal. Normal gait. Psych: Awake, alert, with orientation to person, place and time. Behavior, mood, and affect are within normal limits. 01:03 Musculoskeletal/extremity: No appreciable swelling, tenderness, skin is normal, pulses, motor, sensation intact. Vital Signs: 06/20 21:45 BP 136 / 64; Pulse 70; Resp 17; Temp 98.1; Pulse Ox 95% on R/A; kd3 MDM: 21:42 Patient medically screened. rt 06/21 01:03 Data reviewed: vital signs, nurses notes, lab test result(s). I considered the rt following discharge prescriptions or medication management in the emergency department Medications were administered in the Emergency Department. See MAR. Test considered but Not performed: X-ray: Denies trauma, no appreciable swelling, do not suspect DVT, ultrasound, x-rays not indicated. Care significantly affected by the following chronic conditions: Hypertension. Counseling: I had a detailed discussion with the patient and/or guardian regarding the historical points, exam findings, and any diagnostic results supporting the discharge/admit diagnosis, lab results, the need for outpatient follow up. Response to treatment: the patient's symptoms have mildly improved after treatment. 06/20 21:50 Order name: CBC with Diff; Complete Time: 23:40 rt 06/20 21:50 Order name: CMP; Complete Time: 23:50 rt 06/20 21:50 Order name: CPK; Complete Time: 23:50 rt 06/20 21:50 Order name: Magnesium; Complete Time: 23:50 rt Administered Medications: 06/20 23:18 Drug: Cyclobenzaprine PO 10 mg PO once Route: PO; rv Disposition Summary: 06/21/23 00:00 Discharge Ordered Notes: Location: Home rt Problem: new rt Symptoms: are unchanged rt Condition: Stable rt Diagnosis - Cramp and spasm rt Followup: rt - With: Private Physician - When: 2 - 3 days - Reason: Discharge Instructions: - Discharge Summary Sheet rt - Leg Cramps rt - Muscle Cramps and Spasms rt Forms: - Medication Reconciliation Form rt - Thank You Letter rt - Antibiotic Education rt - Prescription Opioid Use rt - Patient Portal Instructions rt - Leadership Thank You Letter rt Prescriptions: - Cyclobenzaprine 10 mg Oral tablet - take 1 tablet ORAL route every 8 hours As needed; 15 tablet; Refills: 0, rt Product Selection Permitted - Tramadol 50 mg Oral Tablet - take 1 tablet ORAL route every 8 hours as needed; 12 tablet; Refills: 0, rt Product Selection Permitted Signatures: Dispatcher [employer] Alexander Saha RN RN rv Nae Pope RN RN kd3 Julio Cesar Stallworth MD MD rt
[2023-06-21 01:00] VITALS: BP 136/64; TEMP 98.1; O2SAT 95
== END 2023-06-21 00:26 | disposition home or self-care (01) ==
LOC: ER 21:28
DX: R25.2 Cramp and spasm (principal); I10 Essential (primary) hypertension; Z86.73 Personal history of transient ischemic attack (TIA), and cerebral infarction without residual deficits; Z88.0 Allergy status to penicillin
CPT/HCPCS: 36415; 80053; 82550; 83735; 85025; 99284

== ENCOUNTER 2023-07-10 09:38 | Emergency (ER) | payer MEDICARE ==
--- OUTSIDE RECORDS SUMMARY | 2023-07-10 09:45 | XMS REPORT | Continuity of Care Document ---
:1950 Author Organization [facility] t Address [address] [place] [address] [address] [place] [address] Care Team Providers Name Role Phone Samia De La Cruz MD, William Primary Care Physician [phone] Guy Marcial Attending Clinician Unavailable Lupe Rosado MA Attending Clinician Unavailable Carter Corado MD Attending Clinician Hilton Gracia MD Attending [...] Clinician Unavailable RAYMON AVENDAÑO Admitting Clinician Unavailable Eugenie Avendaño MDt [place] Admitting Clinician Payers Payer Name Policy Type Policy Number Effective Date Expiration Date S katerin [employer]ED [employer] [id number] MEDICARE ADVANTAGE 00:00:00 PLAN DEVOTED HEALTH [id number] 2021 (MEDICARE 00:00:00 REPLACEMENT HMO) [facility] [id number] [facility] [id number] 2019 00:00:00 Problems Condition Condition Condition Status Onset Resolution Last Treating Co mments Source Name Details Category Date Date Treatment Clinician Date Acute Acute Disease Active Univers cystitis cystitis 1-09 ity of without without 00:00: [place] hematuria hematuria 00 [facility] rizwana Branch 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 episodes 1-08 ity of of of 00:00: [place] unresponsi unresponsi 00 Me dical veness veness 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 1-08 it y of traumatic traumatic 00:00: [place] brain brain 00 Medical injury injury Branch Carotid Carotid Disease Recurre Univer s stenosis, stenosis, nce 1-08 ity of asymptomat asymptomat [place] ic, ic, 00 Medical bilateral bilateral Bran ch 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 00:00: [place] due to due to 00 Medical external external Branch causes, causes, without without status status epilepticu epilepticu s s Seizure Seizure Disease Active Univers 1-08 ity of 00:00: [place] 00 Medical Branch Allergies, Adverse Reactions, Alerts Allergy Allergy Status Severity Reaction(s) Onset Inactive Treating Comm ents Source Name Type Date Date Clinician PENICILL Allergy Active ENCCLR IN 08-31 14:12: 50 PENICILL Allergy Active ENCCLR IN 08-31 14:12: 50 MILK Allergy Active ENCCLR 08-31 14:12: 44 MILK Allergy Active ENCCLR 08-31 14:12: 44 Penicill DA Active [facility] 4 [place] 00:00: [facility] 00 are [facility] Penicill DA Active SC RASH-UNKNOWN HC A ins 4-13 [place] 00:00: [facility] [address] PENICILL DRUG Active Rash 2018- Univers IN INGREDI 09-09 ity of 00:00: [place] [address] Medical Branch Penicill Propensi Active Rash 2018-08 [...] Quantity Comments Source Gender identity Universit y [facility] Sexual orientation [facility] History of Social 2023-06-10 2023-06-[address] function 00:00:00 00:00:00 Hospital Tobacco use and 2023-06-10 2023-06-10 Smokeless [facility] exposure 00:00:00 00:00:00 tobacco non-user Hospital Exposure to 2022-08-15 2022-08-25 Not sure University of SARS-CoV-2 (event) 00:00:00 14:17:00 [facility] Sex Assigned At [birth year] [facility] 00:[facility]00 [facility] Smoking Status Start Date Stop Date Source Never smoked tobacco [facility] Medications Ordered Filled Start Stop Current Ordering Indication Dosage Frequency Signature Comments Components Source Medication Medication Date Date Medication? Clinician (SIG) Name Name LARRY 2022-08 Yes Take by [facility] G-OLIVE-ORE 0-[address] G-CAPRYL 10:08: Hospita ORAL 03 l cyanocobala 2022-[address] [facility] min, 0-30 2,[address] vitamin 10:08: under the Hospi ta B-12, 5,000 03 tongue l mcg tablet, daily. sublingual cholecalcif 2022-08 Yes 2000U QD Take 1 [facility] jessenia, 0-[address] vitamin D3, 10:08: (2,000 Hosp jenny 50 mcg 03 Units l (2,000 total) by unit) mouth capsule daily. capsule zinc 2022-08 Yes 1{capsu QD Take 1 Methodi sulfate 0-30 le} capsule by st (ZINCATE) 10:08: mouth Hospita 50 mg zinc 03 daily. l (220 mg) capsule TUMERIC-GIN 2022-08 Yes Take by Met [facility] G-OLIVE-ORE 0-[address] G-CAPRYL 10:08: Hospita ORAL 03 l cyanocobala 2022-[address] [facility] min, 0-30 2,[address] vitamin 10:08: under the Hospi ta B-12, 5,000 03 tongue l mcg tablet, daily. sublingual cholecalcif 2022-08 Yes 2000U QD Take 1 Met [facility] jessenia, 0-[address] vitamin D3, 10:08: [...] (COQ-10 & 02 l FISH OIL ORAL) ubidecareno 2022-08 Yes Take by Met [facility] ne/omega-3/ 0-[address] vit E 10:08: Hospita (COQ-10 & 02 l FISH OIL ORAL) gabapentin 2022-08- Yes 200mg Q.5D Take 2 Met hodi (Neurontin) 0-30 04-[address] 100 mg 00:00: 04:59 (200 mg Hospita capsule 00 :00 total) by l mouth 2 (two) times a day for 180 days. gabapentin 2022-08- Yes 200mg Q.5D Take 2 [...] Hospita tablet 00 by mouth. l solifenacin 2022-1 Yes 5mg QD Take 1 Meth sruthi (VESICARE) 0-03 tablet (5 st 5 MG tablet 00:00: mg total) H ospita 00 by mouth l daily. atorvastati 2022- Yes 20mg QD Take 1 Meth sruthi n (LIPITOR) 0-03 tablet (20 st 20 mg 00:00: mg total) Hospita tablet 00 by mouth l daily. propranoloL 2022- Yes 10mg Take 1 Meth sruthi (INDERAL) 0-03 tablet (10 st 10 MG 00:00: mg total) Hospita tablet 00 by mouth. l solifenacin 2022-08 Yes 5mg QD Take 1 Meth sruthi (VESICARE) 0-03 tablet (5 st 5 MG tablet 00:00: mg total) H ospita 00 by mouth l daily. primidone 2022-0 Yes 2 TALETS Meth sruthi (MYSOLINE) 9-[address] 50 MG 00:00: ONCE A DAY Hospit a tablet 00 AT 7PM 90 l DAYS primidone 2022-0 Yes 2 TALETS Meth sruthi (MYSOLINE) 9-[address] 50 MG 00:00: ONCE A DAY Hospit a tablet 00 AT 7PM 90 l DAYS phenytoin 2022-0 Yes Pt takes 2 Me thodi (DILANTIN) 9-[address] 100 MG ER 00:00: and one in Ho spita capsule 00 the PM l phenytoin 2022-0 Yes Pt takes 2 Me thodi (DILANTIN) 9-[address] 100 MG ER 00:00: and one in Ho spita capsule 00 the PM l citalopram 2022-0 Yes 20mg QD Take 1 Metho di (CeleXA) 20 - tablet (20 st MG tablet 00:00: mg total) Hos sheron 00 by mouth l daily. citalopram 2022-0 Yes 20mg QD Take 1 Metho di (CeleXA) 20 - tablet (20 st MG tablet 00:00: mg total) Hos sheron 00 by mouth l daily. amLODIPine 2022-0 Yes 2.5mg QD Take 1 Meth sruthi (NORVASC) 8-[address] 2.5 mg 00:00: (2.5 mg Hospita tablet 00 total) by l mouth daily. amLODIPine 2022-0 Yes 2.5mg QD Take 1 Meth sruthi (NORVASC) 8-[address] 2.5 mg 00:00: (2.5 mg Hospita tablet 00 total) by l mouth daily. magnesium 2022-0 3- No 1g 1 g, IV Univ ers sulfate in 02-24 Piggyback, it y of D5W 1 20:15: 20:08 ONCE, 1 [place] gram/100 mL 00 :00 dose, On [facility] RTU IV Sun Branch Piggyback 1 02/24/23 at g 1515, Administer over 60 Minutes, 100 mL fosphenytoi 2022-0 2022- No 1500mg{ 1,500 mg Univers n [...] over 30 Minutes, 50 mL NaCl 0.9% 3-0 2023- No 500mL at 999 Univ ers (NS) bolus 08-25 mL/hr, 500 it y of infusion 21:15: 21:48 mL, IV [place] 500 mL 00 :00 Infusion, Medical ONCE, 1 Branch dose, On 08/25/22 at 1515, JESSI No known No No known Unive rs medications -14 medication it y of 14:21: s [place] 08 Medical Branch phenytoin 2021-0 Yes 100mg 100 mg, Univ ers (DILANTIN) 1-10 Oral, TID, ity of 100 mg/4 mL 14:00: First dose [place] oral 00 (after Medical suspension last Branch 100 mg modificati on) on 08/21/21 at 0800, Until Discontinu ed, Routine sulfamethox Yes 1{tbl} 1 tablet, Univers azole-trime -10 Oral, BID, it y of 02:00: [place] (BACTRIM [facility] 800-160 08/20/21 at Bra nch mg per 2000, tablet 1 Until tablet Discontinu ed, JESSI
Re ason for Anti-Infec tive: Documented Infection< br>Documen temi Infection Site: Urine
D uration of Therapy: 7 days phenytoin 2021- No [id number] 300mg Take 1 Univers ER 300 mg 08-21 capsule by ity of ER capsule 00:00: 04:59 mouth [place] 00 :00 daily for Medical 90 days. [place] LORazepam 2021- No 1mg 1 mg, Univer s (ATIVAN) 08-20 01- Oral, ity of tablet 1 mg 17:15: 21:45 ONCE, 1 [place] 00 :[place] dose, On Medical Pep 08/20/21 Branch at 1115, Routine pantoprazol 0 Yes 40mg 40 mg, Univ ers e -09 Oral, ity of (PROTONIX) 15:00: DAILY, [place] EC tablet 00 First dose Medi rizwana 40 mg on Pep Branch 08/20/21 at 0900, Until Discontinu ed, Routine primidone 0 Yes 50mg 50 mg, Univer s (MYSOLINE) 1-09 Oral, QHS, ity of tablet 50 03:00: First dose [place] mg 00 on [facility] Medical 08/19/21 at Branch 2100, Until Discontinu ed, Routine atorvastati 0 Yes 40mg 40 mg, Univ ers n (LIPITOR) 1-09 Oral, QHS, it y of tablet 40 03:00: First dose [place] mg 00 on [facility] Medical 08/19/21 at Branch 2100, Until Discontinu ed, Routine venlafaxine 0 Yes 75mg 75 mg, Univ ers (EFFEXOR) 1- Oral, BID, ity of tablet 75 02:00: First dose [place] mg 00 on [facility] Medical 08/19/21 at Branch 2000, Until Discontinu ed, Routine propranoloL 0 Yes 10mg 10 mg, Univ ers (INDERAL) 1- Oral, BID, ity of tablet 10 02:00: First dose [place] mg 00 on [facility] Medical 08/19/21 at Branch 2000, Until Discontinu ed, Routine heparin 0 Yes 5000U 5,000 Univers (porcine) 08-20 Units, ity of injection 02:00: Subcutaneo [place] 5,000 Units 00 us, Q12H, Med ical First dose Branch on [facility] 08/19/21 at 2000, Until Discontinu ed, Routine phenytoin 0 2021- No 100mg 100 mg, Uni vers (DILANTIN) 08-20 Oral, TID, it y of 100 mg/4 mL 02:00: 12:43 First dose [place] oral 00 :24 on [facility] suspension 08/19/21 at Bran ch 100 mg 1999, Until Discontinu ed, Routine atorvastati 0 2022- No [id number] 40mg Take 1 Univers n 40 mg 08-20 tablet by ity of tablet 00:00: 05:59 mouth at [place] 00 :00 bedtime Medical for 360 Branch days. propranoloL 2021-0 2022- No [id number] 10mg Take 1 Univers 10 mg 08-20 tablet by ity of tablet 00:00: 05:59 mouth 2 [place] 00 :00 (two) Medical times Royal daily for 360 days. venlafaxine 2021-0 2022- No [id number] 75mg Take 1 Univers 75 mg 08-20 tablet by ity of tablet 00:00: 05:59 mouth 2 [place] 00 :00 (two) Medical times Branch daily for 360 days. pantoprazol 2022- No [id number] 40mg Take 1 Univers e 40 mg EC 08-20 tablet by ity of tablet 00:00: 05:59 mouth [place] 00 :00 daily for Medical 360 days. Branch sulfamethox 2021- No [id number] 1{tbl} Take 1 Univers azole-trime 08-20 tablet by it y of thoprim 00:00: 05:59 mouth 2 [place] 800-160 mg 00 :00 (two) Medical per tablet times Branch daily for 6 days. phenytoin 2021- No [id number] 100mg Take 4 mL Univers 100 mg/4 mL 08-20 by mouth 3 i ty of oral 00:00: 00:00 (three) [place] suspension 00 :00 times Medical daily for Branch 360 days. butalbital- Yes 1{tbl} 1 tablet, Univers acetaminoph 08-19 Oral, ity of en-caff 22:24: Q6HPRCornelia, [place] (ESGIC) 34 Starting Medical 50-325-40 on Sat [...] Branch piggyback Piggyback, ONCE, 1 dose, On 08/19/21 at 1500, Administer over 30 Minutes, 100 mL ondansetron Yes 4mg 4 mg, Slow Univers (ZOFRAN 08 IV Push, ity of (PF)) 20:30: Q6HPRN, [place] injection 4 38 Starting Medi rizwana mg on Sat Branch 08/19/21 at 1430, Until Discontinu ed, JESSI, Nausea and Vomiting (N/V) LORazepam Yes 2mg 2 mg, Slow Un emily (ATIVAN) 1-08 IV Push, ity of injection 2 20:06: Q5MIN PRN, [place] mg 39 Starting Medical on [facility] Branch 08/19/21 at 1406, Until Discontinu ed, Routine, Seizures NaCl 0.9% 0 Yes 1000mL at 75 Unive rs (NS) IV 1-08 mL/hr, IV ity of infusion 20:00: Infusion, [place] 1,000 mL 00 CONTINUOUS Medic al , Starting Branch on [facility] 08/19/21 at 1400, Until Discontinu ed, Routine phenytoin 2021- No 100mg 100 mg, Uni vers (DILANTIN) 08-19 Oral, TID, it y of chewable 20:00: 21:20 First dose [place] tablet 100 00 :58 on [facility] Medical mg 08/19/21 at Branch 1400, Until Discontinu ed, Routine acetaminoph Yes 650mg 650 mg, Un emily en 08-19 Oral, ity of (TYLENOL) 19:48: Q6HPRN, [place] tablet 650 11 Starting Medic al mg on [facility] Branch 08/19/21 at 1348, Until Discontinu ed, Routine, Pain (scale 4-6) docusate Yes 100mg 100 mg, Unive rs (COLACE) 08 Oral, ity of capsule 100 19:48: QDAILYPRN, [place] mg 11 Starting Medical on [facility] Branch 08/19/21 at 1348, Until Discontinu ed, Routine, Constipati on iopamidol 2021- No [id number] 100mL 100 mL, Univers (ISOVUE 08-19 Intravenou ity o f 370-500 mL) 16:45: 15:25 s, ONCE, 1 [place] injection 00 :00 dose, On Medica l 100 mL [facility] 08/19/21 Branch at 1045, Routine ondansetron 2021- No 4mg 4 mg, Slow Univers (ZOFRAN 08-19 IV Push, ity of (PF)) 15:30: 14:21 ONCE, 1 [place] injection 4 00 :00 dose, On Medi rizwana mg [facility] 08/19/21 Branch at 0930, JESSI acetaminoph 2018-08- No [id number] 1{tbl} Take 1 Univers en-codeine 09-09 [id number] tablet by i ty of 300-30 mg 00:00: 00:00 mouth [place] tablet 00 :00 every 4 Medical (four) Branch hours as needed for Pain (scale 7-10). Vital Signs Vital Name Observation Time Observation Value Comments Source Systolic blood 2023-02-24 22:30:00 154 mm[Hg] Univer sity of pressure [place] [facility] Diastolic blood 2023-02-24 22:30:00 75 mm[Hg] Unive rsity of pressure [place] [facility] Heart rate 2023-02-24 22:30:00 59 /min Universi ty [facility] [place] [facility] Respiratory rate 2023-02-24 22:30:00 19 /min Univ ersity of [place] [facility] Oxygen saturation in 2023-02-24 22:30:00 94 /min University of Arterial blood by [place] [facility] [facility] Pulse oximetry Branch Body temperature 2023-02-24 20:22:00 36.06 Yazmin Univ ersity of [place] [facility] Body height 2023-02-24 17:59:00 172.7 cm [facility] [place] [facility] Body weight 2023-02-24 17:59:00 113.399 kg [facility] [place] [facility] BMI 2023-02-24 17:59:00 38.01 kg/m2 [facility] [place] [facility] Systolic blood 2023-01-26 20:00:00 166 mm[Hg] Univer sity of pressure [place] [facility] Diastolic blood 2023-01-26 20:00:00 83 mm[Hg] Unive rsity of pressure [place] [facility] Heart rate 2023-01-26 20:00:00 72 /min [facility]i ty [facility] [place] [facility] Respiratory rate 2023-01-26 20:00:00 20 /min Univ ersity of [place] [facility] Oxygen saturation in 2023-01-26 20:00:00 94 /min University of Arterial blood by [place] [employer] rizwana Pulse oximetry Branch Body temperature 2023-01-26 17:13:00 36.17 Yazmin Univ ersity [facility] [place] [facility] Body weight 2023-01-26 17:13:00 102.059 kg [facility] [place] [facility] BMI 2023-01-26 17:13:00 37.44 kg/m2 [facility] [place] [facility] Systolic blood 2022-08-25 21:00:00 130 mm[Hg] Univer sity of pressure [place] [facility] Diastolic blood 2022-08-25 21:00:00 91 mm[Hg] Unive rsity of pressure [place] [facility] Heart rate 2022-08-25 21:00:00 74 /min [facility]i [facility] [place] [facility] Respiratory rate 2022-08-25 21:00:00 18 /min Univ ersity of [place] [facility] Oxygen saturation in 2022-08-25 21:00:00 94 /min University of Arterial blood by [facility] Pulse oximetry Branch Body temperature 2022-08-25 20:18:00 36.83 Yazmin Univ ersity [facility] [place] [facility] Body weight 2022-08-25 20:18:00 102.059 kg [facility]i [facility] [place] [facility] Royal BMI 2022-08-25 20:18:00 37.44 kg/m2 [facility] [place] [facility] Systolic blood 2021-08-22 01:35:00 149 mm[Hg] Univer sity of pressure [place] [facility] Diastolic blood 2021-08-22 01:35:00 73 mm[Hg] Unive rsity of pressure [place] [facility] Heart rate 2021-08-22 01:35:00 62 /min [facility] [place] [facility] Body temperature 2021-08-22 01:35:00 36.11 Yazmin Univ ers[facility] [place] [facility] Respiratory rate 2021-08-22 01:35:00 16 /min Univ ersity of [place] [facility] Oxygen saturation in 2021-08-22 01:35:00 96 /min University of Arterial blood by [facility] rizwana Pulse oximetry Branch Body height 2021-08-19 19:12:00 165.1 cm [facility] [place] [facility] Body weight 2021-08-19 19:12:00 102.059 kg [facility] [place] [facility] BMI 2021-08-19 19:12:00 37.44 kg/m2 [facility] [place] [facility] Systolic blood 2023-06-10 15:01:00 149 mm[Hg] [facility] pressure Diastolic blood 2023-06-10 15:01:00 74 mm[Hg] [facility] pressure Heart rate 2023-06-10 15:01:00 58 /min [facility] Body temperature 2023-06-10 15:01:00 36.78 Yazmin [facility] [place] [facility] Respiratory rate 2023-06-10 15:01:00 18 /min [facility] [place] [facility] Body height 2023-06-10 15:01:00 165.1 cm [facility] [place] [facility] Body weight 2023-06-10 15:01:00 111.585 kg [facility] BMI 2023-06-10 15:01:00 40.94 kg/m2 [facility] Procedures Procedure Date / Time Performing Source Performed Clinician POTASSIUM SERUM 2023-02-24 Joe [facility] [place] 20:55:[address] [facility] [place] [facility] HEAD WO CONTRAST 2023-02-24 Joe [facility] o f [place] 20:07:57 [facility] COMP. METABOLIC PANEL ([id number]) 2023-02-24 Abigail Diaz [facility] 19:51:00 [facility] [place] [facility] URINALYSIS 2023-02-24 Joe [facility] [place] 19:46:00 [facility] MAGNESIUM 2023-02-24 Joe [facility] [place] 18:13:00 [facility] [place] [facility] PHENYTOIN 2023-02-24 Joe [facility] [place] 18:13:00 Medical Branch CBC WITH DIFF 2023-02-24 Joe [facility] [place] 18:13:00 [facility] [place] [facility] CONSENT/REFUSAL FOR DIAGNOSIS 2023-02-24 Doctor Unassigned, [facility] AND TREATMENT 18:06:24 [place] [facility] [place] [facility] EKG-12 LEAD 2023-01-26 Philip Patten [facility] xas 20:50:40 Medical Branch COMP. METABOLIC PANEL ([id number]) 2023-01-26 Philip Patten [facility] 17:10:00 Medical Branch PHENYTOIN 2023-01-26 Philip Patten [facility] [place] 17:10:00 Medical Branch CBC WITH DIFF 2023-01-26 Philip Patten [facility] xas 17:10:00 Medical Branch COMP. METABOLIC PANEL ([id number]) 2022-08-25 Jay Olivier [facility] 20:34:00 Medical Branch PHENYTOIN 2022-08-25 Jay Olivier [facility] exas 20:34:00 Medical Branch CBC WITH DIFF 2022-08-25 Jay Olivier [facility] ex 20:34:00 [facility] [place] [facility] CONSENT/REFUSAL FOR DIAGNOSIS 2022-08-25 Doctor Unassigned, [facility] AND TREATMENT 20:14:00 [place] [facility] [place] [facility] PHENYTOIN FREE 2021[facility]08-21 [facility] CBC WITH DIFF 2021-08-21 Paula [facility] 09:57:00 [facility] [place] [facility] MAGNESIUM 2021-08-21 [facility] 09:[facility] [place] [facility] BASIC METABOLIC PANEL (NA, K, 2021-08-21 Venkat [facility] CL, CO2, GLUCOSE, BUN, 09:57:00 [facility] CREATININE, CA) ELECTROENCEPHALOGRAM 2021-08-21 [facility] URINE CULTURE 2021-08-20 Paula [facility] 16:56:00 [facility] [place] [facility] PHENYTOIN FREE 2021-08-20 Terri [facility] 00:07:00 [facility] [place] [facility] GLYCOSYLATED HEMOGLOBIN (A1C) 2021-08-20 [facility] XR CHEST 1 VW 2021-08-19 Terri [facility] 20:11:[address] [facility] [place] [facility] [address] ANGIOGRAM HEAD 2021-08-19 Joe [facility] 15:34:[address] [facility] [place] [facility] ANGIOGRAM NECK 2021-08-19 Joe [facility] 15:34:[address] [facility] [place] [facility] HEAD WO CONTRAST 2021-08-19 Abigail Diza [facility] 15:34:34 [facility] URINALYSIS 2021-08-19 Joe [facility] 14:59:00 [facility] [place] [facility] URINE DRUG (IMMUNOASSAY) - 2021-08-19 Abigail Diaz [facility] COMPREHENSIVE DRUG SCREEN W/O 14:59:00 Ok dical Branch REFLEX COVID-19 (ID NOW RAPID 2021-08-19 Abigail Diaz [facility] TESTING) 14:23:00 [facility] [place] [facility] CBC WITH DIFF 2021-08-19 Joe [facility] 14:10:00 Medical Branch PROTHROMBIN TIME / INR 2021-08-19 Abigail Diaz [facility] 14:10:00 Medical Branch ACTIVATED PARTIAL THRMPLAS 2021-08-19 Abigail Diaz [facility] JUDIT 14:10:00 Medical Branch N-TERMINAL PRO-BNP 2021-08-19 Joe [facility] 14:10:00 Medical Branch [facility]ORUS [facility]08[facility] 14:10:[facility] Medical Branch MAGNESIUM 2021-08-19 [facility] [place] 14:10:00 Medical Branch TROPONIN I 2021-08-19 Joe [facility] [place] 14:10:00 [facility] FREE T4 2021-08-19 Joe [facility] [place] 14:10:00 [facility] THYROID STIMULATING HORMONE 2021-08-19 Abigail Diaz [facility] 14:10:00 [facility] COMP. METABOLIC PANEL ([id number]) 2021-08-19 Abigail Diaz [facility] 14:10:00 [facility] PHENYTOIN 2021-08-19 Joe [facility] [place] 14:10:00 Medical Branch ETHANOL 2021-08-19 Joe [facility] [place] 14:10:00 [facility] LACTIC ACID WHOLE BLOOD 2021-08-19 Abigail Diaz [facility] 14:09:00 [facility] HB ECG ROUTINE & RHYTHM STRIP 2021-08-19 Abigail Diaz [facility] 14:01:38 [facility] Plan of Care Planned Activity Planned Date Details Comments Source Future Scheduled 2023-07-09 [facility] 08:52:00 malignant neoplasm of colon (procedure) [code = 893790231] Future Scheduled 2023-07-09 Screening for [facility] Test 08:52:00 malignant neoplasm of colon (procedure) [code = 418689589] Future Scheduled 2023-07-09 [facility] Test 08:52:00 malignant neoplasm of colon (procedure) [code = 462732572] Future Scheduled 2023-07-09 COVID-19 VACCINE (#1) [facility] Test 08:52:00 [code = COVID-19 VACCINE (#1)] Future Scheduled 2023-07-09 [facility] 08:52:00 (procedure) [code = 656250752] Future Scheduled 2023-07-09 [facility] Test 08:52:00 malignant neoplasm of colon (procedure) [code = 139534962] Future Scheduled 2023-07-09 [facility] Test 08:52:00 malignant neoplasm of colon (procedure) [code = 651539476] Future Scheduled 2023-07-09 SHINGLES VACCINES ([facility] 08:52:00 of 2) [code = SHINGLES VACCINES (1 of 2)] Future Scheduled 2023-07-09 65+ [facility]OCOCCAL [facility] Test 08:52:00 VACCINE (1 - PCV) [code = 65+ PNEUMOCOCCAL VACCINE (1 - PCV)] Future Scheduled 2023-07-09 INFLUENZA VACCINE (#1) [facility] Test 08:52:00 [code = INFLUENZA VACCINE (#1)] Future Scheduled 2023-06-18 [facility] Test 11:53:27 malignant neoplasm of colon (procedure) [code = 805558400] Future Scheduled 2023-06-18 [facility] 11:53:27 malignant neoplasm of colon (procedure) [code = 046097662] Future Scheduled 2023-06-18 [facility] 11:53:27 malignant neoplasm of colon (procedure) [code = 647912257] Future Scheduled 2023-06-18 COVID-19 VACCINE (#1) [facility] Test 11:53:27 [code = COVID-19 VACCINE (#1)] Future Scheduled 2023-06-18 [facility] 11:53:27 (procedure) [code = 047769278] Future Scheduled 2023-06-18 [facility] Test 11:53:27 malignant neoplasm of colon (procedure) [code = 400737645] Future Scheduled 2023-06-18 [facility] Test 11:53:27 malignant neoplasm of colon (procedure) [code = 791541677] Future Scheduled 2023-06-18 SHINGLES VACCINES (1 Met [facility] Test 11:53:27 of 2) [code = SHINGLES VACCINES (1 of 2)] Future Scheduled 2023-06-18 64+ [facility] Test 11:53:27 VACCINE (1 - PCV) [code = 65+ PNEUMOCOCCAL VACCINE (1 - PCV)] Future Scheduled 2023-06-18 INFLUENZA VACCINE (#1) [facility] Test 11:53:27 [code = INFLUENZA VACCINE (#1)] Encounters Start End Encounter Admission Attending Care Care Encounter Source Date/Time Date/Time Type Type Clinicians Facility Department ID 2020-11-22 Inpatient AMINTA Marcial, [facility] [id number] [facility] [place] 20:34:[address] 2023-06-18 2023-06-18 Refill Rosado, 1.2.840.1 [id number] Methodi 00:00:00 00:00:[address] 3.430.2.7 Hospit a .3.998320 l .8 2023-06-18 2023-06-18 Refill Rosado, 1.2.840.1 [id number] Methodi 00:00:00 00:00:[address] 3.430.2.7 Hospit a .3.215386 l .8 2023-06-10 2023-06-10 Office Hope, 1.2.840.1 [id number] 0872 [facility]i 09:30:00 10:55:05 Visit [place] [address]45.1.[address] Shankar 3.430.2.7 Hospit a .3.383277 l .8 2023-06-10 2023-06-10 Office Hope, 1.2.840.1 [id number] 7462 Methodi 09:30:00 10:55:05 Visit [place] [address]08.1.[address] Shankar 3.430.2.7 Hospit a .3.340814 l .8 2023-04-24 2023-04-24 Transcribe Gracia, 1.2.840.1 [id number] Methodi 00:00:00 00:00:00 Orders [place] [address]1.[address] 3.430.2.7 Hospit a .3.514767 l .8 2023-04-24 2023-04-24 Transcribe Gracia, 1.2.840.1 [id number] Methodi 00:00:00 00:00:00 Orders [place] [address]1.[address] 3.430.2.7 Hospit a .3.158366 l .8 2023-02-24 2023-02-24 Emergency X DIAZ, [facility] ERT [id number] Univers 13:01:00 18:40:00 ABIGAIL [facility] 2023-02-24 2023-02-24 [facility] 1.2.659.952 [id number] Univers 13:01:00 18:40:00 Abigail HERMAN 350.1.13.10 i ty [facility] 4.2.7.2.686 [facility] [id number] [address] 2023-01-26 2023-01-26 Emergency [facility] [id number] Univers 12:09:00 16:04:00 PHILIP [facility] 2023-01-26 2023-01-26 Emergency [facility] 1.2.745.805 [id number] Univers 12:09:00 16:04:00 Philip HERMAN 350.1.13.10 i ty of DELILAH 4.2.7.2.686 [facility] [id number] [address] 2022-11-30 2022-11-30 CAV Nori 2.16.840. 2.16.840.1. JO-ANN XKKYKZ [facility] 20:00:00 21:00:00 Wyatt 1.470434. 163144.4.6. [facility] 4.6.85702 [id number] 2022-08-25 2022-08-25 Emergency X CHARLINE, [facility] ERT [id number] Univers 14:16:00 17:49:00 JAY [facility] 2022-08-25 2022-08-25 Emergency [facility] 1.2.840.114 [id number] Univers 14:16:00 17:49:00 Jay HERMAN 350.1.13.10 i ty of [place] 4.2.7.2.686 [facility] [id number] [facility] 0[address] Branch 2022-04-13 2022-04-13 Outpatient Williams_V DMG [facility] 1109 [facility] 00:00:00 00:00:00 6[address] [facility] 2022-04-13 2022-04-13 Outpatient Williams_V DMG DM 1109 [facility] 00:00:00 00:00:00 [id number] Medica l Group 2022-02-23 2022-02-23 Outpatient DMG DMG 045040- [facility] 03:28:00 03:28:00 62486 [facility] l Group 2021-11-02 2021-11-02 Outpatient DMG DM 919730- [facility] 09:00:00 09:00:00 [id number] Medica l Group 2021-08-31 2021-08-31 Outpatient DIANA LEE, ENCCLR ENCCLR [id number] ENCCLR 00:00:00 00:00:00 ADMISSION BAYRON 2021-08-21 2021-08-30 Inpatient 3 Elsa, ENCPL BIN 12211-64 22 [facility] 21:15:00 11:00:00 Carter [facility] [facility] 2021-08-19 2021-08-21 Outpatient X JAROCHO, [facility] MAKI [id number] Univers 08:00:00 22:01:00 RAYMON ding f [facility] 2021-08-19 2021-08-21 Emergency Abigail Diaz 1.2.840. 114 [id number] Univers 08:00:00 22:01:00 Raymon Avendaño 350.1.13.1 0 ity [facility] 4.2.7.2.686 Matthew as [id number] [facility] 098 Branch 2020-11-23 2020-11-23 Outpatient INOCENCIO Marcial REF [id number] [facility] 08:52:00 08:52:[address] [place] [address] 2020-11-22 2020-11-22 Outpatient TOÑO Marcial [facility] [id number] [facility] 20:34:49 20:34:49 Guy Bridges [facility] Results Test Description Test Time Test Comments Results Result Comments Source POTASSIUM SERUM 2023-02-24 21:39:42 Test Item Value Reference Range Interpretation Comme nts K (test code = 0393462119) 4.6 mmol/L 3.5-5.0 Lab Interpretation (test code = 83145-9) Normal [facility] ([id number])2023-02-24 20:40:28 Test Item Value Reference Range Interpretation Comments NA (test code = 137 mmol/L 135-145 3993548037) K (test code = 6.3 mmol/L 3.5-5.0 HH 5914351031) CL (test code = 103 mmol/L 98-108 8420112522) CO2 TOTAL (test code = 26 mmol/L 23-31 3151939796) AGAP (test code = 8 2-16 8067413566) BUN (test code = 17 mg/dL 7-23 7806419046) GLUCOSE (test code = 114 mg/dL 70-110 H 3987971814) CREATININE (test code = 0.97 mg/dL 0.60-1.25 7979309264) TOTAL BILI (test code = 0.7 mg/dL 0.1-1.2 1739187559) CALCIUM (test code = 8.6 mg/dL 8.6-10.6 3748864790) T PROTEIN (test code = 7.5 g/dL 6.3-8.2 9773775161) ALBUMIN (test code = 4.1 g/dL 3.5-5.0 1984027194) ALK PHOS (test code = 153 U/L 34-122 H 9031301965) ALTv (test code = 36 U/L 5-50 1742-6) AST(SGOT) (test code = 43 U/L 13-40 H 3788612706) eGFR (test code = 75.9 mL/min/1.73m2 4226343687) DARIN (test code = DARIN) Association of [...] tests). Lab Interpretation Abnormal (test code = 89471-0) [facility]2023-[facility]-16 18:58:02 Test Item Value Reference Range Interpretation Comments MAGNESIUM (test code = 2856475917) 1.1 mg/dL 1.7-2.4 L Lab Interpretation (test code = Abnormal 35120-8) [facility]2023-07-16 18:47:54 Test Item Value Reference Range Interpretation Comments PHENYTOIN (test code = 4.0 ug/mL 10.0-20.0 L 9321429744) DARIN (test code = DARIN) Toxic Range: ? 0-3 Months ? Greater than 14 ug/mL ? ? 3 Months - 150 Years ? ? Greater than 20 ug/mL Lab Interpretation (test Abnormal code = 41428-5) [facility] WITH [id number] 18:31:30 Test Item Value Reference Range Interpretation Comments WBC (test code = 9.00 See_Comment [Hjsybxkaw 3640-2) message] The sy stem which generated this result transmitted reference range : 4.20 - 10.70 10*3/?L. The reference range was not used to interpret this result as normal/abnormal . RBC (test code = 3.97 See_Comment L [Automated 789-8) message] The sy [...] RDW-SD (test code = 47.8 fL 38.5-51.6 75259-5) RDW-CV (test code = 13.8 % 12.1-15.4 788-0) PLT (test code = 327 See_Comment [Automated 777-3) message] The sy stem which generated this result transmitted reference range : 150 - 328 10*3/ ?L. The reference r esdras was not used to interpret this result as normal/abnormal . MPV (test code = 8.5 fL 9.8-13.0 L 60116-9) NRBC/100 WBC (test 0.0 See_Comment [Automat ed code = 1816197148) message] The system which generated this result transmitted reference range : 0.0 - 10.0 /100 WBCs. The refer ence range was not u sed to interpret th is result as normal/abnormal . NRBC x10^3 (test code See_Comment [Auto mated = 1891822579) message] The s ystem which generated this result transmitted reference range : 10*3/?L. The reference range was not used to interpret this result as normal/abnormal . GRAN MAT (NEUT) % 49.5 % (test code = 770-8) IMM GRAN % (test code 0.30 % = 1116590623) LYMPH % (test code = 39.7 % 736-9) MONO % (test code = 7.0 % 5905-5) EOS % (test code = 2.9 % 713-8) BASO % (test code = 0.6 % 706-2) GRAN MAT x10^3(ANC) 4.46 10*3/uL 1.99-6.95 (test code = 9194602542) IMM GRAN x10^3 (test 0.03 10*3/uL 0.00-0.06 code = 5728161460) LYMPH x10^3 (test code 3.57 10*3/uL 1.09-3.23 H = 731-0) MONO x10^3 (test code 0.63 10*3/uL 0.36-1.02 = 742-7) EOS x10^3 (test code = 0.26 10*3/uL 0.06-0.53 711-2) BASO x10^3 (test code 0.05 10*3/uL 0.01-0.09 = 704-7) Lab Interpretation Abnormal (test code = 08722-1) [facility]2023-06-17 18:43:34 Test Item Value Reference Range Interpretation Comments PHENYTOIN (test code = 9.1 ug/mL 10.0-20.0 L 1899066093) DARIN (test code = DARIN) Toxic Range: ? 0-3 Months ? Greater than 14 ug/mL ? ? 3 Months - 150 Years ? ? Greater than 20 ug/mL Lab Interpretation (test Abnormal code = 67924-6) [facility]OL[facility] PANEL (78147)2023-01-26 17:42:34 Test Item Value Reference Range Interpretation Comments NA (test code = 141 mmol/L 135-145 3427188139) K (test code = 4.7 mmol/L 3.5-5.0 2941518187) CL (test code = 108 mmol/L 98-108 0463068150) CO2 TOTAL (test code = 23 mmol/L 23-31 8504224708) AGAP (test code = 10 2-16 1406379770) BUN (test code = 25 mg/dL 7-23 H 8442933251) GLUCOSE (test code = 170 mg/dL 70-110 H 9183494344) CREATININE (test code = 1.16 mg/dL 0.60-1.25 6050664804) TOTAL BILI (test code = 0.4 mg/dL 0.1-1.8 8250524298) CALCIUM (test code = 8.7 mg/dL 8.6-10.6 9485060153) T PROTEIN (test code = 7.2 g/dL 6.3-8.2 9799905808) ALBUMIN (test code = 4.0 g/dL 3.5-5.0 7384825177) ALK PHOS (test code = 146 U/L 34-122 H 8477995604) ALTv (test code = 32 U/L 5-50 1742-6) AST(SGOT) (test code = 31 U/L 13-40 5895548698) eGFR (test code = 61.7 mL/min/1.73m2 4603159125) DARIN (test code = DARIN) Association of [...] tests). Lab Interpretation Abnormal (test code = 78076-4) [facility] WITH [id number] 17:30:16 Test Item Value Reference Range Interpretation Comments WBC (test code = 8.30 See_Comment [Automated 6690-2) message] The sy stem which generated this result transmitted reference range : 4.20 - 10.70 10*3/?L. The reference range was not used to interpret this result as normal/abnormal . RBC (test code = 3.83 See_Comment L [Automated 789-8) message] The sy [...] RDW-SD (test code = 47.8 fL 38.5-51.6 79087-3) RDW-CV (test code = 13.9 % 12.1-15.4 788-0) PLT (test code = 300 See_Comment [Automated 777-3) message] The sy stem which generated this result transmitted reference range : 150 - 328 10*3/ ?L. The reference r esdras was not used to interpret this result as normal/abnormal . MPV (test code = 8.5 fL 9.8-13.0 L 12868-6) NRBC/100 WBC (test 0.0 See_Comment [Automat ed code = 4752688867) message] The system which generated this result transmitted reference range : 0.0 - 10.0 /100 WBCs. The refer ence range was not u sed to interpret th is result as normal/abnormal . NRBC x10^3 (test code See_Comment [Auto mated = 4288035779) message] The s ystem which generated this result transmitted reference range : 10*3/?L. The reference range was not used to interpret this result as normal/abnormal . GRAN MAT (NEUT) % 50.9 % (test code = 770-8) IMM GRAN % (test code 0.60 % = 1869928914) LYMPH % (test code = 35.9 % 736-9) MONO % (test code = 8.6 % 5905-5) EOS % (test code = 3.5 % 713-8) BASO % (test code = 0.5 % 706-2) GRAN MAT x10^3(ANC) 4.23 10*3/uL 1.99-6.95 (test code = 9957620555) IMM GRAN x10^3 (test 0.05 10*3/uL 0.00-0.06 code = 5189853994) LYMPH x10^3 (test code 2.98 10*3/uL 1.09-3.23 = 731-0) MONO x10^3 (test code 0.71 10*3/uL 0.36-1.02 = 742-7) EOS x10^3 (test code = 0.29 10*3/uL 0.06-0.53 711-2) BASO x10^3 (test code 0.04 10*3/uL 0.01-0.09 = 704-7) Lab Interpretation Abnormal (test code = 54224-9) [facility]2023-01-14 22:37:17 Test Item Value Reference Range Interpretation Comments PHENYTOIN (test code = 10.5 ug/mL 10.0-20.0 2938387114) DARIN (test code = DARIN) Toxic Range: ? 0-3 Months ? Greater than 14 ug/mL ? ? 3 Months - 150 Years ? ? Greater than 20 ug/mL Lab Interpretation (test Normal code = 60724-9) [facility] WITH [id number] 21:31:57 Test Item Value Reference Range Interpretation [...] RDW-SD (test code = 45.7 fL 38.5-51.6 12203-1) RDW-CV (test code = 13.4 % 12.1-15.4 788-0) PLT (test code = See_Comment [Automated 777-3) message] The sy stem which generated this result transmitted reference range : 150 - 328 10*3/ ?L. The reference r esdras was not used to interpret this result as normal/abnormal . MPV (test code = 8.8 fL 9.8-13.0 L 44635-3) NRBC/100 WBC (test See_Comment [Automat ed code = 5156177407) message] The system which generated this result transmitted reference range : 0.0 - 10.0 /100 WBCs. The refer ence range was not u sed to interpret th is result as normal/abnormal . NRBC x10^3 (test code See_Comment [Auto mated = 9863110011) message] The s ystem which generated this result transmitted reference range : 10*3/?L. The reference range was not used to interpret this result as normal/abnormal . GRAN MAT (NEUT) % 43.3 % (test code = 770-8) IMM GRAN % (test code 0.40 % = 4348308228) LYMPH % (test code = 45.5 % 736-9) MONO % (test code = 7.9 % 5905-5) EOS % (test code = 2.3 % 713-8) BASO % (test code = 0.6 % 706-2) GRAN MAT x10^3(ANC) 4.48 10*3/uL 1.99-6.95 (test code = 6597726691) IMM GRAN x10^3 (test 0.04 10*3/uL 0.00-0.06 code = 5687533363) LYMPH x10^3 (test code 4.71 10*3/uL 1.09-3.23 H = 731-0) MONO x10^3 (test code 0.82 10*3/uL 0.36-1.02 = 742-7) EOS x10^3 (test code = 0.24 10*3/uL 0.06-0.53 711-2) BASO x10^3 (test code 0.06 10*3/uL 0.01-0.09 = 704-7) Lab Interpretation Abnormal (test code = 97154-0) [facility]OL[facility] PANEL (36356)2022-08-25 21:09:32 Test Item Value Reference Range Interpretation Comments NA (test code = 137 mmol/L 135-145 1386445103) K (test code = 5.2 mmol/L 3.5-5.0 H 7433490028) CL (test code = 106 mmol/L 98-108 4071494107) CO2 TOTAL (test code = 23 mmol/L 23-31 0350332671) AGAP (test code = 2-16 2110740317) BUN (test code = 22 mg/dL 7-23 1605007851) GLUCOSE (test code = 99 mg/dL 70-110 3208210475) CREATININE (test code = 1.06 mg/dL 0.60-1.25 0170610787) TOTAL BILI (test code = 0.5 mg/dL 0.1-1.0 1355221254) CALCIUM (test code = 8.2 mg/dL 8.6-10.6 L 6720312780) T PROTEIN (test code = 7.4 g/dL 6.3-8.2 4772890115) ALBUMIN (test code = 4.1 g/dL 3.5-5.0 0538162690) ALK PHOS (test code = 158 U/L 34-122 H 8541552333) ALTv (test code = 36 U/L 5-50 1742-6) AST(SGOT) (test code = 37 U/L 13-40 3176301082) eGFR (test code = mL/min/1.73m2 9546285138) DARIN (test code = DARIN) Association of [...] tests). Lab Interpretation Abnormal (test code = 71647-8) [facility] [id number] 12:40:14 Test Item Value Reference Range Interpretation Comments PHENY FREE (test code 2.1 ug/mL 1.0-2.0 H = 8805267403) DARIN (test code = DARIN) Toxic Range: ? Greater than 2.5 ug/mL Test developed and characteristics determined by [facility] Laboratory Services. Lab Interpretation Abnormal (test code = 40296-6) [facility] CampusBAS[facility] METABOLIC PANEL (NA, K, CL, CO2, GLUCOSE, BUN, CREATININE, CA)2021-08-21 11:15:55 Test Item Value Reference Range Interpretation Comments NA (test code = 138 mmol/L 135-145 6163484523) K (test code = 4.9 mmol/L 3.5-5.0 2165222540) CL (test code = 105 mmol/L 98-108 9307578573) CO2 TOTAL (test code = 27 mmol/L 23-31 8999651647) AGAP (test code = 2-16 7530820564) BUN (test code = 18 mg/dL 7-23 6128366521) GLUCOSE (test code = 93 mg/dL 70-110 5449045133) CREATININE (test code = 1.04 mg/dL 0.60-1.25 4490508524) CALCIUM (test code = 8.5 mg/dL 8.6-10.6 L 4076320910) eGFR (test code = mL/min/1.73m2 1692349129) DARIN (test code = DARIN) Association of [...] tests). Lab Interpretation Abnormal (test code = 75659-1) [facility]2022-01-10 11:15:55 Test Item Value Reference Range Interpretation Comments MAGNESIUM (test code = 8004130199) 2.2 mg/dL 1.7-2.4 Lab Interpretation (test code = Normal 16585-6) [facility] WITH [id number] 10:45:32 Test Item Value Reference Range Interpretation [...] RDW-SD (test code = 44.0 fL 38.5-51.6 91602-0) RDW-CV (test code = 13.2 % 12.1-15.4 788-0) PLT (test code = See_Comment [Automated 777-3) message] The sy stem which generated this result transmitted reference range : 150 - 328 10*3/ ?L. The reference r esdras was not used to interpret this result as normal/abnormal . MPV (test code = 8.6 fL 9.8-13.0 L 43436-8) NRBC/100 WBC (test See_Comment [Automat ed code = 3672849223) message] The system which generated this result transmitted reference range : 0.0 - 10.0 /100 WBCs. The refer ence range was not u sed to interpret th is result as normal/abnormal . NRBC x10^3 (test code <0.01 See_Comment [Auto mated = 2163424799) message] The s ystem which generated this result transmitted reference range : 10*3/?L. The reference range was not used to interpret this result as normal/abnormal . GRAN MAT (NEUT) % 38.4 % (test code = 770-8) IMM GRAN % (test code 0.20 % = 3010159850) LYMPH % (test code = 51.1 % 736-9) MONO % (test code = 7.5 % 5905-5) EOS % (test code = 2.4 % 713-8) BASO % (test code = 0.4 % 706-2) GRAN MAT x10^3(ANC) 3.56 10*3/uL 1.99-6.95 (test code = 7014554357) IMM GRAN x10^3 (test <0.03 0.00-0.06 code = 5769004094) LYMPH x10^3 (test code 4.74 10*3/uL 1.09-3.23 H = 731-0) MONO x10^3 (test code 0.70 10*3/uL 0.36-1.02 = 742-7) EOS x10^3 (test code = 0.22 10*3/uL 0.06-0.53 711-2) BASO x10^3 (test code 0.04 10*3/uL 0.01-0.09 = 704-7) REACT LYMPHS (test Rare code = 4173417384) GIANT PLATELETS (test Present See_Comment A [Auto mated code = 5908-9) message] The system which generated this result transmitted reference range : (none). The reference range was not used to interpret this result as normal/abnormal . Lab Interpretation Abnormal (test code = 65207-4) [facility] [id number] 03:34:42 Test Item Value Reference Range Interpretation Comments PHENY FREE (test code 2.5 ug/mL 1.0-2.0 H = 7558874058) DARIN (test code = DARIN) Toxic Range: ? Greater than 2.5 ug/mL Test developed and characteristics determined by [facility] Laboratory Services. Lab Interpretation Abnormal (test code = 81454-9) [facility] CampusGLYCOSYLATED HEMOGLOBIN (A1C)2021-08-20 00:41:54 Test Item Value Reference Range Interpretation Comments HGB A1C (test code = 5.8 % 4.0-5.7 H 4548-4) DARIN (test code = DARIN) Reference RangesNormal: <5.7%Prediabetes: 5.7 - 6.4%Diabetes: > 6.5% Lab Interpretation (test Abnormal code = 08742-6) [facility] CampusMagnesium [id number] 20:40:07 Test Item Value Reference Range Interpretation Comments MAGNESIUM (test code = 0609988214) 2.2 mg/dL 1.7-2.4 Lab Interpretation (test code = Normal 32392-0) [facility] CampusPhosphorus [id number] 20:40:06 Test Item Value Reference Range Interpretation Comments PHOSPHORUS (test code = 4719903405) 3.0 mg/dL 2.5-5.0 Lab Interpretation (test code = Normal 05932-6) [facility]IN2022-01-08 18:18:13 Test Item Value Reference Range Interpretation Comments PHENYTOIN (test code = 3.5 ug/mL 10.0-20.0 L 6097219842) DARIN (test code = DARIN) Toxic Range: ? 0-3 Months ? Greater than 14 ug/mL ? ? 3 Months - 150 Years ? ? Greater than 20 ug/mL Lab Interpretation (test Abnormal code = 52337-4) [facility]CBC WITH [id number] 15:36:41 Test Item Value Reference Range Interpretation Comments WBC (test code = See_Comment H [Automated 7090-2) message] The sy stem which generated this [...] RDW-SD (test code = 43.9 fL 38.5-51.6 48523-8) RDW-CV (test code = 13.0 % 12.1-15.4 788-0) PLT (test code = See_Comment H [Automated 777-3) message] The sy stem which generated this result transmitted reference range : 150 - 328 10*3/ ?L. The reference r esdras was not used to interpret this result as normal/abnormal . MPV (test code = 8.8 fL 9.8-13.0 L 88342-7) NRBC/100 WBC (test See_Comment [Automat ed code = 0515973626) message] The system which generated this result transmitted reference range : 0.0 - 10.0 /100 WBCs. The refer ence range was not u sed to interpret th is result as normal/abnormal . NRBC x10^3 (test code <0.01 See_Comment [Auto mated = 7118897958) message] The s ystem which generated this result transmitted reference range : 10*3/?L. The reference range was not used to interpret this result as normal/abnormal . GRAN MAT (NEUT) % 50.8 % (test code = 770-8) IMM GRAN % (test code 0.50 % = 1460406053) LYMPH % (test code = 38.9 % 736-9) MONO % (test code = 7.3 % 5905-5) EOS % (test code = 2.2 % 713-8) BASO % (test code = 0.3 % 706-2) GRAN MAT x10^3(ANC) 5.92 10*3/uL 1.99-6.95 (test code = 2484861574) IMM GRAN x10^3 (test 0.06 10*3/uL 0.00-0.06 code = 3479383874) LYMPH x10^3 (test code 4.53 10*3/uL 1.09-3.23 H = 731-0) MONO x10^3 (test code 0.85 10*3/uL 0.36-1.02 = 742-7) EOS x10^3 (test code = 0.26 10*3/uL 0.06-0.53 711-2) BASO x10^3 (test code 0.04 10*3/uL 0.01-0.09 = 704-7) Lab Interpretation Abnormal (test code = 09202-5) [facility] CampusTHYROID STIMULATING [id number] 15:29:39 Test Item Value Reference Range Interpretation Comments TSH (test code = See_Comment H [Automated message] 5626028333) The system [employer] generated this result transmitted ref erence range: 0.45 - 4 .70 mIU/L. The refe rence range was not u sed to interpret this result as normal/abnor mal. Lab Interpretation (test Abnormal code = 99741-2) [facility] [id number] 15:16:18 Test Item Value Reference Range Interpretation Comments FREE T4 (test code = See_Comment L [Autom ated message] 6166631607) The system [employer] generated this result transmitted ref erence range: 0.78 - 2 .20 ng/dL:. The ref erence range was not u sed to interpret this result as normal/abnor mal. Lab Interpretation (test Abnormal code = 11027-9) [facility] CampusTROPONIN [id number] 15:11:17 Test Item Value Reference Interpretation Comments Range TROPONIN I (test 0.011 ng/mL See_Comment [Automated code = 6533594324) message] The system which generated this result [...] biotin. Lab Interpretation Normal (test code = 27615-4) [facility] CampusN-TERMINAL [id number] 15:08:15 Test Item Value Reference Range Interpretation Comments NT-proBNP (test code 315 pg/mL See_Comment H [Autom ated = [id number]) message] The system which generated this result transmitted reference range : <=125. The reference range was not used to interpret this result as normal/abnormal . DARIN (test code = DARIN) Biotin has been reported to cause a negative bias, interpret results relative to patient's use of biotin. Lab Interpretation Abnormal (test code = 70270-5) [facility]20[facility] 15:00:12 Test Item Value Reference Range Interpretation Comments ALCOHOL (test code = <10 mg/dL [id number]) DARIN (test code = DARIN) <10 [id number] Toxic>100 Depression of INSOLE LIP TURNER>400 Fatalities Reported [facility] MET[facility]OLIC PANEL (70800)2021-08-19 14:58:56 Test Item Value Reference Range Interpretation Comments NA (test code = 139 mmol/L 135-145 [id number]) K (test code = 4.7 mmol/L 3.5-5.0 5615089621) CL (test code = 106 mmol/L 98-108 9517663539) CO2 TOTAL (test code = 27 mmol/L 23-31 5594063707) AGAP (test code = 2-16 2102976938) BUN (test code = 20 mg/dL 7-23 1965944188) GLUCOSE (test code = 125 mg/dL 70-110 H [id number]) CREATININE (test code = 0.92 mg/dL 0.60-1.25 6722682675) TOTAL BILI (test code = 0.2 mg/dL 0.1-1.3 8773392810) CALCIUM (test code = 8.3 mg/dL 8.6-10.6 L [id number]) T PROTEIN (test code = 7.1 g/dL 6.3-8.2 4468305856) ALBUMIN (test code = 3.9 g/dL 3.5-5.0 0138756075) ALK PHOS (test code = 152 U/L 34-122 H [id number]) ALTv (test code = 21 U/L 5-50 1742-6) AST(SGOT) (test code = 25 U/L 13-40 1738362656) eGFR (test code = mL/min/1.73m2 5007295973) DARIN (test code = DARIN) Association of [...] tests). Lab Interpretation Abnormal (test code = 60585-5) [facility] THRMPLAS [id number] 14:58:36 Test Item Value Reference Range Interpretation Comments APTT Patient (test See_Comment [Automat ed code = 3173-2) message] The system which generated this result transmitted reference range : 23 - 38 Seconds . The reference range was not used to interpr et this result as normal/abnormal . DARIN (test code = DARIN) The [facility] patient population mean normal value for aPTT is 30 seconds. Lab Interpretation Normal (test code = 07794-2) [facility] CampusPROTHROMBIN TIME / [id number] 14:56:36 Test Item Value Reference Range Interpretation [...] tions. Lab Interpretation (test Normal code = 08196-0) [facility] CampusLactic Acid Whole [id number] 14:18:15 Test Item Value Reference Range Interpretation Comments LACTIC ACID (test code = 1.65 mmol/L 0.50-2.20 5437617150) Lab Interpretation (test code = Normal 77707-6) [facility]- US ELASTO EACH [id number] 07:28:00 [facility] : 1950 Sex: MPatient Name: ELENO SPENCER Unit No: [id number] EXAMS: CPT CODE: [id number] US ELASTO EACH ORG 16474 EXAM: US ELASTOGRAPHY LOCATION: C3 INDICATION: Possible [...] MD; Guy Marcial MD Technologist: Kayy Suarez Probe:Trscr Dt/Tm: 12/22/2020 (0728) by:[email or web address] Printed Date/Time: 12/22/2020 (0731) Name: ELENO SPENCER JR [facility] Phys: Julien Self Jr, MD [address] : 1950 Age: 70 Sex: [place] [address] Loc: PRahulPSCLIEN Exam Date: 12/20/2020 Status: REG REF PH: FAX: PAGE 1 Signed [id number] 02:09:00 Test Item Value Reference Range Interpretation Comments COPPER (test code = 132 ug/dL 69-132 Detecti on Limit = 5 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 The reference range was not u sed to interpret this result as normal/abnormal . 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 The reference range was not u sed to interpret this result as normal/abnormal . AB HEPATITIS B [id number] 13:12:00 Test Item Value Reference Range Interpretation Comments AB HEPATITIS B SURFACE (test code Nonreactive Nonreactive = HBSAB) AG HEPATITIS B [id number] 13:12:00 Test Item Value Reference Range Interpretation Comments AG HEPATITIS B SURFACE (test code Nonreactive Nonreactive = HBSAG) AB [id number] 13:12:00 Test Item Value Reference Range Interpretation Comments AB ANTI-MITOCHONDRIAL See_Comment [Auto mated message] The (test code = MITOAB) system which generated this result transmit temi reference range : <1:20. The reference range was not used to interpr et this result as sanjay l/abnormal. - US ABDOMEN [id number] 11:21:00 [facility] : 1950 Sex: MPatient Name: ELENO SPENCER Unit No: [id number] EXAMS: CPT CODE: [id number] US ABDOMEN COMPLETE 39312 CLINICAL HISTORY: abnormal liver enzymes. LOCATION: A1 FINDINGS: Real-time grayscale sonographic evaluation of the abdomen is performed with limited color Doppler evaluation. Comparison is madewith CT abdomen/pelvis without contrast dated November 26, 2020. Please note that visualization is signi ficantly limited by patient body habitus. The visualized [...] signed by: KIRAN MORA M.D. CC: Julien jane Jr, MD; Guy Marcial MD Technologist: Kayy Suarez Probe: Trscr Dt/Tm: 12/20/2020 (1121) by:Jama Printed Date/Time: 12/20/2020 (7408) Name: ELENO SPENCER [facility] Phys: Julien Self Jr, MD [address] : 1950 Age: 70 Sex: [place] [address] Loc: ALISIA Exam Date: 12/20/2020 Status: REG REF PH: FAX: PAGE 1 Signed ReportALPHA 1 [id number] 14:09:00 Test Item Value Reference Range Interpretation Comments ALPHA 1 ANTITRYPSIN (test code = RZDZ7QDI) [id number] 14:09:00 Test Item Value Reference Range Interpretation Comments CERULOPLASMIN (test code = CER) 29.5 mg/dL 16.0-31.0 [id number] 14:09:00 Test Item Value Reference Range Interpretation Comments FERRITIN (test code = 53.7 ng/mL 22.0-322.0 N Please note: New LEANDER) Reference Range Sep 2020 ALPHA 1 [id number] 14:09:00 Test Item Value Reference Range Interpretation Comments ALPHA 1 ANTITRYPSIN 155 mg/dL 101-187 Performe d At: DA (test code = XNOD6VKJ) [facility] [address] [place], [place] [id number] h MICAELA JOHNSON Ph:[phone] [id number] 14:09:00 Test Item Value Reference Range Interpretation Comments CERULOPLASMIN (test code = CER) 29.5 mg/dL 16.0-31.0 [id number] 14:09:00 Test Item Value Reference Range Interpretation Comments FERRITIN (test code = 53.7 ng/mL 22.0-322.0 N Please note: New LEANDER) Reference Range Sep 2020 CBC W/AUTO [id number] 07:55:00 Test Item Value Reference Range Interpretation [...] 0.09 x10 3/uL 0.0-0.20 N COMPREHENSIVE METABOLIC [id number] 07:05:00 Test Item Value Reference Range Interpretation [...] Feb code = ALKP) 2020 LIVER FUNCTION [id number] 07:05:00 Test Item Value Reference Range Interpretation Comments BILIRUBIN DIRECT < 0.1 mg/dL <0.3 N Please note : New (test code = BILD) Reference Range Sep 2020 CBC W/AUTO [id number] 06:47:00 Test Item Value Reference Range Interpretation [...] = EO#) x10 3/uL 0.00-0.45 ANTINUCLEAR ANTIBODIES [id number] 10:30:00 Test Item Value Reference Range Interpretation Comments KATYA SCREEN (test code = ANASCR) AB HEPATITIS B [id number] 10:30:00 Test Item Value Reference Range Interpretation Comments AB HEPATITIS B SURFACE (test code Nonreactive Nonreactive = HBSAB) AG HEPATITIS B [id number] 10:30:00 Test Item Value Reference Range Interpretation Comments AG HEPATITIS B SURFACE (test code Nonreactive Nonreactive = HBSAG) AB [id number] 10:30:00 Test Item Value Reference Range Interpretation Comments AB ANTI-MITOCHONDRIAL See_Comment [Auto mated message] The (test code = MITOAB) system which generated this result transmit temi reference range : <1:20. The reference range was not used to interpr et this result as sanjay l/abnormal. AB [id number] 10:30:00 Test Item Value Reference Range Interpretation Comments AB TREPONEMA (test code = TREPAB) NONREACTIVE NONREACTIVE ALPHA 1 [id number] 10:17:00 Test Item Value Reference Range Interpretation Comments ALPHA 1 ANTITRYPSIN (test code = JLTE5CIJ) [id number] 10:17:00 Test Item Value Reference Range Interpretation Comments CERULOPLASMIN (test code = CER) [id number] 10:17:00 Test Item Value Reference Range Interpretation Comments FERRITIN (test code = 53.7 ng/mL 22.0-322.0 N Please note: New LEANDER) Reference Range Sep 2020 ALPHA FETOPROTEIN TUMOR [id number] 10:17:00 Test Item Value Reference Range Interpretation Comments ALPHA FETOPROTEIN < 2.2 ng/dL <8.1 N Please not e: New TUMOR MARKER (test Reference Range Feb code = AFPTM) 2020 COMPREHENSIVE METABOLIC [id number] 06:19:00 Test Item Value Reference Range Interpretation [...] Feb code = ALKP) 2020 CBC W/AUTO [id number] 06:12:00 Test Item Value Reference Range Interpretation [...] 3/uL 0.0-0.20 N COVID 19 Asymptomatic IH [id number] 16:30:00 Test Item Value Reference Range Interpretation [...] and symptomsconsist ent with COVID-19. COMPREHENSIVE METABOLIC [id number] 06:07:00 Test Item Value Reference Range Interpretation [...] Feb code = ALKP) 2020 CBC W/AUTO [id number] 05:49:00 Test Item Value Reference Range Interpretation [...] 0.05 x10 3/uL 0.0-0.20 N COMPREHENSIVE METABOLIC [id number] 09:41:00 Test Item Value Reference Range Interpretation [...] PHOSPHATASE (test code = ALKP) COMPREHENSIVE METABOLIC [id number] 09:41:00 Test Item Value Reference Range Interpretation [...] Feb code = ALKP) 2020 CBC W/AUTO [id number] 09:25:00 Test Item Value Reference Range Interpretation [...] 0.05 x10 3/uL 0.0-0.20 N COMPREHENSIVE METABOLIC [id number] 06:46:00 Test Item Value Reference Range Interpretation [...] Feb code = ALKP) 2020 CBC W/AUTO [id number] 06:32:00 Test Item Value Reference Range Interpretation [...] 3/uL 0.0-0.20 N - MRI BRAIN W/O [id number] 13:10:00 [facility] : 1950 Sex: MPatient Name: ELENO SPENCER Unit No: [id number] EXAMS: CPT CODE: [id number] MRI BRAIN W/O CONTRAST 01729 EXAM: MRI of the Brain without contrast [...] cavity. There is mild mass effect on the adjacent sulci especially over lying the right frontal [...] within the subcortical right frontal lobe Name: DANICA SPENCERRenetta Vallejo JR [facility] Phys: CLARISSA.01 - Guy Marcial MD [address] : 1950 Age: 70 Sex: [place] [address] Loc: P.PSCLIEN Exam Date: 12/08/2020 Status: REG REF PH: FAX: PAGE 1 Signed Report (CONTINUED) Patient Name: JANINE SPENCER JR Unit No: [id number] EXAMS: CPT CODE: [id number] MRI BRAIN W/O CONTRAST 72064 <Continued> may represent sequelae of edema. No significant mass effect is seen. 3. 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 4. Mild inflammatory disease of bilateral mastoid air cells and ethmoid air cells. at 1310 Reported and signedby: CHIRAG MEJIA M.D. CC: Guy Marcial MD Technologist: Lamin Felipe Trs Dt/Tm: 12/08/2020 (1310) by:[email or web address] Printed Date/Time: 12/08/2020 (3866) Name: JOHANNAELENO Kati FRANKLIN [facility] Phys: CLARISSA. - Guy Marcial MD [address] : 1950 Age: 70 Sex: [place] [address] Acct No: [id number] Loc: P.PSCLIEN Exam Date: 12/08/2020 Status: REG REF PH: FAX: PAGE 2 Signed ReportDILANTIN (PHENYTOIN)2020-12-08 06:37:00 Test Item Value Reference Range Interpretation Comments DILANTIN 6.0 mcg/mL 10.0-20.0 L INTERPRETATIVE (PHENYTOIN) (test DATA:Thera peutic range: code = DIL) 10 - 20 mcg/mL Toxic: >20 mcg/mL Plea se refer to Medication Administration Record (MAR) forlast d ose date and time. COMPREHENSIVE METABOLIC [id number] 06:51:00 Test Item Value Reference Range Interpretation [...] Feb code = ALKP) 2020 CBC W/AUTO [id number] 06:30:00 Test Item Value Reference Range Interpretation [...] 3/uL 0.0-0.20 N - XR CHEST 1 [id number] 07:58:00 [facility] : 1950 Sex: MPatient Name: ELENO SPENCER Unit No: [id number] EXAMS: CPT CODE: [id number] XR CHEST 1 V 32551 CHEST, SINGLE VIEW DICTATION LOCATION A1 HISTORY: Respiratory [...] Dt/Tm: 12/06/2020 (0758) by:Jian Printed Date/Time: 12/06/2020 (08) Name: JOHANNAELENORenetta Vallejo JR [facility] Phys: River Quintanilla MD [address] : 1950 Age: 70 Sex: [place] [address] Loc: KirkPSCLIEN Exam Date: 12/06/2020 Status: REG REF PH: FAX: PAGE 1 Signed ReportCOMPREHENSIVE METABOLIC [id number] 07:07:00 Test Item Value Reference Range Interpretation [...] Feb code = ALKP) 2020 CBC W/AUTO [id number] 06:56:00 Test Item Value Reference Range Interpretation [...] 3/uL 0.0-0.20 N - CT HEAD/BRAIN W/O [id number] 10:54:00 [facility] : 1950 Sex: MPatient Name: ELENO SPENCER Unit No: [id number] EXAMS: CPT CODE: [id number] CT HEAD/BRAIN W/OCONT 67031 EXAM: CT Head without contrast Location: A1 [...] Intraorbital contents are within normal limits. Note ismade of bilateral lens replacement. Bones of the [...] available, then comparison is recommended. Name: ELENO SPENCER JR [facility] Phys: CLARISSA.01 - Guy Marcial MD [address] : 1950 Age: 70 Sex: [place] [address] Loc: P.PSCLIEN Exam Date: 12/02/2020 Status: REG REF PH: FAX: PAGE 1 Signed Report (CONTINUED) Patient Name: ELENO SPENCER JR Unit No: [id number] EXAMS: CPT CODE: [id number] CT HEAD/BR AIN W/O CONT 88128 <Continued> 2. Small low attenuating focus in the right frontal cortex may represent subacute ischemic infarct. Larger areas of low attenuation in the subcortical white matter in the right frontal lobe may represent edema either from underlying mass lesion or cerebritis. Please correlate with patient's surgical history. Electronically Signed by CHIRAG MEJIA M.D. on 1at 1054 Reported and signed by: CHIRAG MEJIA M.D. CC: Guy Marcial MD Technologist: Gregorio Handley CTDI: 55.71 DLP: 891 Trscr Dt/Tm: 12/02/2020 (1054) by:[email or web address] Printed Date/Time: 12/02/2020 (7456) Name: ELENO SPENCER [facility] Phys: Guy Villar MD [address] : 1950 Age: 70 Sex: [place] [address] Loc: KirkPSCLIEN Exam Date: 12/02/2020 Status: REG REF PH: FAX: PAGE 2 Signed Report COMPREHENSIVE METABOLIC [id number] 07:02:00 Test Item Value Reference Range Interpretation [...] Reference Range Feb code = ALKP) 2020 [id number] 07:02:00 Test Item Value Reference Range Interpretation Comments PHOSPHOROUS (test code 3.9 mg/dL 2.4-5.1 N Pleas e note: New = PHOS) Reference Range Sep 2020 [id number] 07:02:00 Test Item Value Reference Range Interpretation Comments MAGNESIUM (test code = 2.1 mg/dL 1.6-2.6 N Pleas e note: New MAG) Reference Range Sep 2020 CBC W/AUTO [id number] 06:33:00 Test Item Value Reference Range Interpretation [...] 3/uL 0.0-0.20 N - XR CHEST 1 [id number] 07:43:00 [facility] : 1950 Sex: MPatient Name: ELENO SPENCER Unit No: [id number] EXAMS: CPT CODE: [id number] XR CHEST 1 V 89917Ziwpq one view portable 12/01/2020 7:43 AM CLINICAL [...] m2): Air Kerma (mGy): Trscr Dt/Tm: 12/01/2020 (8143) by:[email or web address] Printed Date/Time: 12/01/2020 (3746) Name: JOHANNAELENO Kati FRANKLIN [facility] Phys: River Quintanilla MD [address] : 1950 Age: 70 Sex: [place] [address] Loc: KirkPSCLIEN Exam Date: 12/01/2020 Status: REG REF PH: FAX: PAGE 1 Signed ReportRENAL FUNCTION [id number] 07:48:00 Test Item Value Reference Range Interpretation [...] PHOS) Reference Range Sep 2020 COMPREHENSIVE METABOLIC [id number] 07:19:00 Test Item Value Reference Range Interpretation [...] Feb code = ALKP) 2020 CBC W/AUTO [id number] 06:57:00 Test Item Value Reference Range Interpretation [...] 0.0-0.20 N - CT ABD PELVIS W/O [id number] 20:08:00 [facility] : 1950 Sex: MPatient Name: ELENO SPENCER Unit No: [id number] EXAMS: CPT CODE: [id number] CT ABD PELVIS W/O CONT 71209 LOCATION: 3 EXAM: - CT ABD PELVIS W/O CONT [...] The gallbladder is unremarkable. No biliary duct dilatation. Pancreas: Unremarkable. Adrenal glands: Normal. Kidneys: No radiopaque nephrolithiasis, hydronephrosis or significant perinephric fluid. Vascular: Mild atherosclerosis normal caliber abdominal aorta. Lymph nodes: No abdominal lymphadenopathy. Pelvic structures: The urinary bladder is unremark ably distended. No pelvic lymphadenopathy or free fluid. [...] collections, ascites or evidence of pneumoperitoneum. Name: JOHANNAELENO JR [facility] Phys: Ismael Whiting Jr, MD [address] : 1950 Age: 70 Sex: M [place], [facility]04 Loc: P.PSCLIEN Exam Date: 11/26/2020 Status: REG REF PH: FAX: PAGE 1 Signed Report (CONTINUED) Patient Name: ELENO SPENCER JR Unit No: [id number] EXAMS: CPT CODE: [id number] CT ABD PELVIS W/O [id number] <Continued> Bones and soft tissues: Bilateral spondylolysis [...] by:[email or web address] Printed Date/Time: 11/26/2020 (2011) Name: ELENO SPENCER JR [facility] Phys: Ismael Whiting Jr, MD [address] : 1950 Age: 70 Sex: M [place] [address] Loc: P.PSCLIEN Exam Date:11/26/2020 Status: REG REF PH: FAX: PAGE 2 Signed Report- CT CHEST W/O [id number] 19:33:00 [facility] : 1950 Sex: MPatient Name: ELENO SPENCER JR Unit No: [id number] EXAMS: CPT CODE: [id number] CT CHEST W/O CONTRAST 60551 LOCATION: 3 EXAM: - CT CHEST W/O CONTRAST HISTORY: pneumonia TECHNIQUE: Axial imaging of the chest from the base of the neck [...] and signed by: ALICIA BARTON M.D. Name: DANIAC SPENCERRenetta Vallejo JR [facility] Phys: Ismael Whiting Jr, MD [address] : 1950 Age: 70 Sex: [place] [address] Loc: P.PSCLIEN Exam Date: 11/26/2020 Status: REG REF PH: FAX: PAGE 1 Signed Report (CONTINUED) Patient Name: ELENO SPENCER JR Unit No: [id number] EXAMS: CPT CODE: [id number] CT CHEST W/O CONTRAST 06317 <Continued> CC: Ismael Julio Jr, MD; Guy Marcial MD Technologist: PHILIP Griffin(Blanca)(CT) CTDI: 25.36 DLP: 839.4 Trscr Dt/Tm: 11/26/2020 (1932) by:[email or web address] Printed Date/Time: 11/26/2020 (1935) Name: ELENO SPENCER [facility] Phys: Ismael Whiitng Jr, MD [address] : 1950 Age: 70 Sex: M [place] [address] Loc: P.PSCLIEN Exam Date: 11/26/2020 Status: REG REF PH: FAX: PAGE 2 Signed ReportAB HEPATITIS [id number] 08:04:00 Test Item Value Reference Range Interpretation Comments AB HEPATITIS C (test code = Nonreactive Nonreactive HCVAB) - US ELASTO EACH [id number] 15:05:00 [facility] : 1950 Sex: MPatient Name: ELENO SPENCER JR Unit No: [id number] EXAMS: CPT CODE: [id number] US ELASTO EACH [id number] EXAM: US ELASTOGRAPHY LOCATION: A1 INDICATION: Chronic liver disease ADDITIONAL INFORMATION: None. COMPARISON: None. TECHNIQUE: 8 elastography samples were obtained from the liver. FINDINGS: Evaluation was limited due to patient body habitus and inability to cooperate. Average liver stiffness is17.66 kPa IQR is 6.8 kPa. IQR/Median is [...] Technologist: Tai Ritchie Probe: Trscr Dt/Tm: 11/24/2020 (5281) by:[email or web address] Printed Date/Time: 11/24/2020 (8628) Name: ELENO SPENCER JR [facility] Phys: River Quintanilla MD [address] : 1950 Age: 70 Sex: [place] [address] Loc: P.PSCLIENExam Date: 11/24/2020 Status: REG REF PH: FAX: PAGE 1 Signed [id number] - GLYCOSYLATED [id number] 07:42:00 Test Item Value Reference Range Interpretation Comments GLYCOSYLATED HEMOGLOBIN 5.5 % <5.7 N Diab etic </= (HA1C) (test code = 6.5%Pred iabetes GLYHGB) 5.7-6.4%Normal < 5.7% BASIC METABOLIC [id number] 07:04:00 Test Item Value Reference Range Interpretation [...] CA) Reference Range Sep 2020 COMPREHENSIVE METABOLIC [id number] 07:04:00 Test Item Value Reference Range Interpretation [...] ALKP) Reference Range Sep 2020 BASIC METABOLIC [id number] 06:34:00 Test Item Value Reference Range Interpretation [...] CA) Reference Range Sep 2020 COMPREHENSIVE METABOLIC [id number] 06:34:00 Test Item Value Reference Range Interpretation [...] ALKP) Reference Range Sep 2020 CBC W/AUTO [id number] 06:02:00 Test Item Value Reference Range Interpretation [...] 0.06 x10 3/uL 0.0-0.20 N LIVER FUNCTION [id number] 22:06:00 Test Item Value Reference Range Interpretation [...] BILIRUBIN DIRECT (test 0.2 mg/dL <0.3 N Plejimenez e note: New code = BILD) Reference Range Sep 2020 SGOT/AST (test code = 65 U/L <34 H Please note: New AST) Reference Range Sep 2020 SGPT/ALT (test code = 68 U/L 10-49 H Please note: New ALT) Reference Range Sep 2020 ALKALINE PHOSPHATASE 174 U/L 46-116 H Please note: New (test code = ALKP) Reference Range Sep 2020 T4 [id number] 22:06:00 Test Item Value Reference Range Interpretation Comments T4 FREE (test code 0.93 ng/dL 0.89-1.76 N Please no te: New = T4F) Reference Range Sep 2020 LIVER FUNCTION [id number] 20:58:00 Test Item Value Reference Range Interpretation [...] BILIRUBIN DIRECT (test 0.2 mg/dL <0.3 N Adams e note: New code = BILD) Reference Range Sep 2020 SGOT/AST (test code = 65 U/L <34 H Please note: New AST) Reference Range Sep 2020 SGPT/ALT (test code = 68 U/L 10-49 H Please note: New ALT) Reference Range Sep 2020 ALKALINE PHOSPHATASE 174 U/L 46-116 H Please note: New (test code = ALKP) Reference Range Sep 2020 T4 [id number] 20:58:00 Test Item Value Reference Range Interpretation Comments T4 FREE (test code = T4F) ng/dL 0.89-1.76 [id number] 20:58:00 Test Item Value Reference Range Interpretation [...] d ose date and time. COMPREHENSIVE METABOLIC [id number] 08:15:00 Test Item Value Reference Range Interpretation [...] Reference Range Feb code = ALKP) 2020 [id number] 08:15:00 Test Item Value Reference Range Interpretation Comments PHOSPHOROUS (test code 3.1 mg/dL 2.4-5.1 N Pleas e note: New = PHOS) Reference Range Sep 2020 [id number] 08:15:00 Test Item Value Reference Range Interpretation Comments MAGNESIUM (test code = 2.1 mg/dL 1.6-2.6 N Pleas e note: New MAG) Reference Range Sep 2020 PROTHROMBIN [id number] 07:56:00 Test Item Value Reference Range Interpretation [...] 2.5-3.5recurren t systemic emboli sm. THROMBOPLASTIN TIME [id number] 07:56:00 Test Item Value Reference Range Interpretation Comments THROMBOPLASTIN TIME 29.1 SECONDS 23.8-34.8 N INTERPRE TATIVE PARTIAL (test code = DATA:Th erapeutic PTT) range: Unfractionated heparin:55 - 80 seconds Argatroban:1.5 to 3 times the basel ine PTT CBC W/AUTO [id number] 07:53:00 Test Item Value Reference Range Interpretation [...] 3/uL 0.0-0.20 N - XR CHEST 1 [id number] 03:28:00 [facility] DOB: 1950 Sex: MPatient Name: ELENO SPENCER JR Unit No: [id number] EXAMS: CPT CODE: [id number] XR CHEST 1 V [id number] EXAM: - XR CHEST 1 V HISTORY: [...] Dt/Tm: 11/23/2020 (032) by:[email or web address] Printed Date/Time: 11/23/2020 (330) Name: ELENO SPENCER JR [facility] Phys: CLARISSA.01 - Guy Marcial MD [address] : 1950Age: 70 Sex: [place] [address] Loc: PJOSEPH Exam Date: 11/22/2020 Status: REG REF PH: FAX: PAGE 1 Signed Report Notes Date/Time Note Provider Source 2021-01-07 11:45:00 [id number] [address] PATIENT NAME: ELENO SPENCER JR ADMIT DATE: 11/22/20ACCOUNT NO: [id number] ROOM NO: [facility] AGE: 70 REPORT TYPE: DISCHARGE SUMMARY SEX: M ADMITTING PHYSICIAN:Guy Marcial MD ATTENDING PHYSICIAN:Guy Marcial MD ADMISSION DATE: 11/22/2020ISCHARGE DATE: 12/20/2020 FINAL DIAGNOSES:1. Acute hypoxemic respiratory failure.2. Status post fall.3. Subdural hematoma.4. Diabetes mellitus type 2.5. Hypertension.6. Hyperlipidemia.7. Obesity. MEDICATIONS AT DISCHARGE: Per OCT. DISPOSITION: To home with home nursing. CONDITION ON DISCHARGE: Stable. LEVEL OF CARE: Full code. DIET: Regular. ACTIVITY: As tolerated. CONSULTANTS:1. Dr. Issa.2. Dr. Julio.3. Dr. Mcmanus.4. Dr. Thompson. PROCEDURE: None. COMPLICATIONS: None. INSTRUCTIONS: Given to the patient and stressed the importance of compliancewith medication and outpatient followup. COURSE OF HOSPITALIZATION: [facility]. The patient was seen by neurology team. Overall condition improved. The patient remains on BiPAP at nighttime. Infectiou s disease consultation with Dr. Julio was obtained . The patient PATIENT NAME: ELENO SPENCER Kati FRANKLIN ACCONT #: [id number] completed course of antibiotics for pneumonia. Overall condition improved. Weattempted for chcf placement that was denied by insurance company andthe patient eventually was discharged home. Dictated By: Guy Marcial MD WT: DS:CHEO/CLARISSA./NTSDD: 01/07/2021 11:45:05DT: 01/07/2021 22:52:39Conf#: [id number]/[facility]#: [id number] Authenticated by Guy Marcial MD On 01/08/2021 12:17:38 PM at 1218 PATIENT NAME: JOHANNAELENORenetta Vallejo JR [facility] #: [id number] qkxbqrj9724-36-96P07:52:00S.[id number] a ilable for patient iymdKMOSHOAFVTTUUU1352-56-33E48:18:11 2020-12-20 12:08:00 [id number]:08:000372-[address] [place] [address] PATIENT NAME: ELENO SPENCER JR ADMIT DATE: 11/22/20ACCOUNT NO: [id number] ROOM NO: S.[facility] AGE: 70 REPORT TYPE: PROGRESS NOT E SEX: M ADMITTING PHYSICIAN:Guy Marcial MD ATTENDING PHYSICIAN:Guy Marcial MD DATE: 12/20/2020 PULMONARY PROGRESS NOTE The patient was seen from 9:50 a.m. to 10:15 a.m. A total of 25 minutes werespent taking care of the patient. The patient was discussed with [employer]. SUBJECTIVE: The patient is a 70-year-old man wit h a history of seizure disorderthat fell, hit his head. There is subdural hematoma requiring evacuation due tosevere increased intracranial pressures and midline shift. The patient didwell . The patient has obstructive sleep apnea. He has lost significant amountof weight and that has helped with this process. The patient is on BiPA P atnight. The patient also has chronic liver disease of unknown etiology and he isbeing followed by GI. PHYSICAL EXAMINATION:VITAL SIGNS : He has a temperature of 97.8, heart rate of 76, respiratory rateof 20, blood pressure is 129/73, and pulse oximetry is 97% on room air.HEENT: Normocephalic, atraumatic. Pupils are equal and reactive.NECK: Supple. There is no JVD.CHEST: Decreased breath sounds with increased expirator y phase.CARDIOVASCULAR: S1, S2. No murmurs, gallop , or rub.ABDOMEN: Bowel sounds are positive. Soft and nontender.GENITOURINARY: No CVA tenderness.EXTREMITIES: There is no clubbing, cyanosis, or edema.NEUROLOGIC: The patient is awake, alert, oriented x3, and grossly nonfocal. DIAGNOSTIC IMPRESSION:1. Obstructive sleep apnea . The patient is on BiPAP at night.2. Status post respiratory failure. This has cleared.3. Morbid obesity. The patient is losing weight and this i s helping.4. Subdural hematoma with increased intracranial pressure, status postcraniotomy and evacuation of hematoma.5. Chronic liver disease of unknown etiology. PLAN: The patient is doing better respiratory stubbs and he will be followed veryclosely in the unit. Dictated By: River Issa MD PATIENT NAME: ELENO SPENCER JR ACCONT #: [id number] WT: PN:S.JEANNETTE/SRINIVAS/NTSDD : 12/20/2020 12:08:40DT: 12/20/2020 12:25:06Conf#: [id number]/DID#: [id number] Authenticated by Meagan Issa MD On 12/20/2020 12:31:05 PM at 1231 PATIENT NAME: ELENO SPENCER JR ACCONT #: [id number] Tfhq0164-62-99F52:25:00S.[id number] a ble for patient yyjiANVTIEFFLCJAWE7206-39-14Z52:31:48 2020-12-20 08:22:00 [id number]:22:306065-6 022 [facility] [place] [address] PATIENT NAME: ELENO SPENCER JR ADMIT DATE: 11/22/20ACCOUNT NO: [id number] ROOM NO: S.[facility] AGE: 70 REPORT TYPE: PROGRESS NOT E SEX: M ADMITTING PHYSICIAN:Guy Marcial MD ATTENDING PHYSICIAN:Guy Marcial MD DATE: 12/20/2020 PROGRESS NOTE PROBLEM: Hepatocellular injury. SUBJECTIVE: The patient indicates that h e is not having any abdominal pain. Heis not experiencing any nausea or vomiting. OBJECTIVE:VITAL SIGNS: Temperature is 36.7, puls e of 76, respirations of 20, bloodpressure is 129/73.GENERAL: The patient is alert, in no acut e distress.ABDOMEN: Soft and nontender. LABORATORY STUDIES: All pending with blood tests for causes of other chronicliver diseases thus far are normal or negative. Antimitochondrial antibody andANA are pending. Abdominal ultrasound and repeat elastography is for today. 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 Etiology is uncertain. Nonalcoholic fatty liver disease may be afactor in this setting. Doubt cirrhosis, but we will repeat elastography tofurther assess. PATIENT EDUCATION: The patient informed of the above. Dictated By: Julien Coronel Jr, MD WT: PN:S.JEANNETTE/KARYN/NTSDD: 12/20/2020 08:22:51DT: 12/20/2020 09:20:56Conf#: [id number]/DID#: [id number] Authenticated by Julien Coronel MD On 12/22/2020 07:40:37 AM at 0740 PATIENT NAME: DANICA SPENCERRenetta Vallejo JR ACCONT #: [id number] Uikw7277-36-99C34:20:00S.[id number] a ble for patient bckjEQWJDANXZSOHLH0984-89-05J89:41:09 2020-12-20 04:26:00 [id number]:26:516436-4 [address] [place] [address] PATIENT NAME: DANICA SPENCERRenetta Vallejo JR ADMIT DATE: 11/22/20ACCOUNT NO: [id number] ROOM NO: S.[facility] AGE: 70 REPORT TYPE: PROGRESS NOT E SEX: M ADMITTING PHYSICIAN:Guy Marcial MD ATTENDING PHYSICIAN:Guy Marcial MD DATE: INFECTIOUS DISEASE PROGRESS NOTE SUBJECTIVE: The patient is alert and attentive. Discharge plans are as notedand vancomycin is completed today. All repeat cultures are negative. Nofurther antibiotics will be needed at the time of discharge. I appreciate theopportunity to participate in his care. Dictated By: Ismael Julio Jr, MD WT: PN:S.JEANNETTE/SELINA/BRAYDENDD: 04:26:21DT: 12/20/2020 04:33:34Conf#: [id number]/DID#: [id number] Authenticated by Ismael Julio MD On 12/20/2020 01:05:34 PM at 1305 PATIENT NAME: ELENO SPENCER JR ACCONT #: [id number] Rofj2691-65-07U05:33:00S.[id number] a ble for patient fzkzTLRXMAFKUJKLVO5346-28-50H40:06:09 2020-12-20 02:20:00 [id number]:20:727654-[address] [address] PATIENT NAME: ELENO SPENCER JR ADMIT DATE: 11/22/20ACCOUNT NO: [id number] ROOM NO: [facility] AGE: 70 REPORT TYPE: PROGRESS NOT E SEX: M ADMITTING PHYSICIAN:Guy Marcial MD ATTENDING PHYSICIAN:Guy Marcial MD DATE: 12/19/2020 PROGRESS NOTE SUBJECTIVE: Events reviewed. OBJECTIVE:VITAL SIGNS: Normal.GENERAL: Condition is good. Speech is normal.EXTREMITIES: Moving all extremities. LABORATORY DATA: Reviewed. MEDICATIONS: Reviewed. ASSESSMENT AND PLAN: He is a 70-year-old patient with traumatic righthemispheric subdural hematoma and seizures. He is doing well. Continue presenttreatment. Dictated By: Garrick Xiao WT: PN:S.JEANNETTE/RIKKI/NTSDD: 12/20/2020 02:20:03DT: 12/20/2020 02:40:49Conf#: [id number]/DID#: [id number] Authenticated by Garrick Thompson MD On 12/22/2020 12:14:50 AM at 0015 PATIENT NAME: ELENO SPENCER JR ACCONT #: [id number] Libi7812-08-33M90:40:00S.[id number] a ble for patient qdbfYNILFFFCDEZMKK4432-39-48X09:15:17 2020-12-19 14:41:00 [id number]:41:680506-[address] [address] PATIENT NAME: ELENO SPENCER JR ADMIT DATE: 11/22/20ACCOUNT NO: [id number] ROOM NO: S.[facility] AGE: 70 REPORT TYPE: PROGRESS NOT E SEX: M ADMITTING PHYSICIAN:Guy Marcial MD ATTENDING PHYSICIAN:Guy Marcial MD DATE: 12/19/2020 PROGRESS NOTE SUBJECTIVE: Events note d and discussed with nursing staff. Doing about thesame. Discharge planning is in progress. Discussed with case managementdepartment. A chcf facility placement was declined. The patientwill be discharged home with family. OBJECTIVE:VITAL SIGNS: Blood pressure 120/60, heart rate of 80, temperature 36.7, andrespiratory rate of 17.HEENT: Head is normocephalic.CHEST AND LUNGS: Bilateral breathing sounds.HEART: Normal S1, S2.ABDOMEN: Soft.EXTREMITIES: No edema. PERTINENT FINDINGS:1 . Potassium 5.1.2. Creatinine 1.3. Hemoglobin 9.7. ASSESSMENT AND PLAN:1. Acute hypoxemic respiratory failure, doing well, stable. Dr. Issa,pulmonary service is following the patient . Discharge planning is in progress.2. Acute kidne y injury. Renal function is stable, creatinine at 1. Avoidnephrotoxic agents.3. Debility. PT, OT, fall precaution.4. End-stage liver disease, either nonalcoholic steatohepatitis or completecirrhosis. Dr. Julien Coronel, GI service is following the patient. Discussedwith the . The patient needs outpatient followup. Dictated By: Guy Marcial MD WT: PN:SNATANAEL/CLARISSA.Donna/NTSDD : 12/19/2020 14:41:57DT: 12/19/2020 15:04:36Conf#: [id number]/DID#: [id number] PATIENT NAME: DANICA SPENCER JR ACCONT #: [id number] Authenticated by Guy Marcial MD On 12/19/2020 07:52:38 PM at 1953 PATIENT NAME: ELENO SPENCER JR ACCONT #: [id number] Spfw1599-64-23H40:04:00S.[id number] a ble for patient fowkLQRFQPLHUZQGOX9051-17-18W06:53:10 2020-12-19 10:19:00 [id number]:19:530858-8 044 [facility] [address] [place] [address] PATIENT NAME: ELENO SPENCER JR ADMIT DATE: 11/22/20ACCOUNT NO: [id number] ROOM NO: [facility] AGE: 70 REPORT TYPE: PROGRESS NOT E SEX: M ADMITTING PHYSICIAN:Guy Marcial MD ATTENDING PHYSICIAN:Guy Marcial MD DATE: 12/19/2020 PULMONARY PROGRESS NOTE The patient was seen from 8:45 a.m. to 9:10 a.m. A total of 25 minutes werespent taking care of the patient. SUBJECTIVE: The patient is a 70-year-old man wit h a history of seizure disorderthat fell hitting his head developing altered mental status and on CT scan ofthe head in the Emergency Department, he was found to have a large subduralhematoma with increased intracranial pressure signs and midline shift. Thepatient had a craniotomy. The hematoma was evacuated. The patient is morbidlyobese, has obstructive sleep apnea. The patient has been on a [facility] and he has lost a significant amount of weight. He stillhas to sleep at night and whe n he naps on a BiPAP machine. The patient also wasfound to have chronic liver disease with an ultrasound that shows anelastographic measuremen t consistent with cirrhosis. Ammonia level was withinrange and his liver function tests are slightly elevated. GI is following himfor this. PHYSICAL EXAMINATION:VITAL SIGNS: He has a temperature of 97.8, heart rate of 89, respiratory rateof 19, blood pressure is 102/62 and a pulse oximetry of 96%.HEENT: Normocephalic , atraumatic. Pupils are equal and reactive.NECK: Supple. There is no JVD.CHEST: Decreased breath sounds with shallow breathing.CARDIOVASCULAR: S1 , S2. No murmurs, gallop, or rub.ABDOMEN: Bowel sounds are positive. Soft, obese, and nontender.GENITOURINARY: No CVA tenderness.EXTREMITIES: There is no clubbing, cyanosis, or edema.NEUROLOGIC: The patient is awake, alert, oriented x3, and grossly nonfocal. DIAGNOSTIC IMPRESSION:1. Status post subdural hematoma, status post evacuation. The patient issignificantly improved.2. Obstructive sleep apnea. The patient is on BiPAP at night and during naps.3. Hypoxemia that has cleared.4. Morbid obesity, improving.5. Chronic liver disease either cirrhosis or HENDERSON. The patient is beingfollowed by GI.6. Hyperkalemia. The patient will be getting a dose of Kayexalate. The PATIEN T NAME: ELENO SPENCER JR ACCONT #: [id number] patient will be followed closely. Dictated By: River Issa MD WT: PN:S.JEANNETTE/SRINIVAS/NTSDD: 12/19/2020 10:19:19DT: 12/19/2020 10:35:15Conf#: [id number]/DID#: [id number] Authenticated by Estevan Issa MD On 12/19/2020 11:48:40 AM at 1149 PATIENT NAME: ELENO SPENCER JR ACCONT #: [id number] Urjw7970-75-05F93:35:00S.[id number] a ble for patient lfibTXWZSHPFFPIFYJ8792-71-30X56:49:13 2020-12-19 06:37:00 [id number]:37:097533-[address] [address] PATIENT NAME: ELENO SPENCER JR ADMIT DATE: 11/22/20ACCOUNT NO: [id number] ROOM NO: S.[facility] AGE: 70 REPORT TYPE: PROGRESS NOT E SEX: M ADMITTING PHYSICIAN:Guy Marcial MD ATTENDING PHYSICIAN:Guy Marcial MD DATE: 12/19/2020 PROGRESS NOTE PROBLEM: Hepatocellular injury. SUBJECTIVE: The patient states he is not having any abdominal pain. No nausea,no vomiting . OBJECTIVE:VITAL SIGNS: Temperature is 36.5, puls e of 78, respirations of 21, bloodpressure 145/72.ABDOMEN: Soft and essentially nontender. No guarding. LABORATORY STUDIES: Alpha fetoprotein is normal at 2.2. Ferritin is 53.7.Hepatitis B surface antigen and antibody ar e nonreactive. RPR is nonreactive. ASSESSMENT: The patient's clinical picture is stable. Liver enzymes have notbeen reported yet today. We will plan to reassess liver status for presence ofcirrhosis with repeat elastography as well as a formal abdominal ultrasound. PLAN:DIAGNOSTIC: Follow up pending laboratory studies. Followup ultrasound of liverand repeat elastography of th e liver. PATIENT EDUCATION: The patient informed o f the above. Dictated By: Julien Coronel Jr, MD WT: PN:S.JEANNETTE/KARYN/NTSDD: 12/19/2020 06:37:24DT: 12/19/2020 06:57:51Conf#: [id number]/DID#: [id number] Authenticated and Edited by Julien Coronel MD On 12/19/20 7:15:46 AM at 0717 PATIENT NAME: ELENO SPENCER Kati FRANKLIN ACCONT #: [id number] Lrao2883-21-18C31:57:00S.[id number] a ble for patient dqkkXZNZKBYNALEISZ6824-70-42P19:17:57 2020-12-19 04:37:00 [id number]:37:126662-[address] [address] PATIENT NAME: ELENO SPENCER Kati FRANKLIN ADMIT DATE: 11/22/20ACCOUNT NO: [id number] ROOM NO: S.[facility] AGE: 70 REPORT TYPE: PROGRESS NOTE SEX: M ADMITTING PHYSICIAN:Guy Marcial MD ATTENDING PHYSICIAN:Guy Marcial MD DATE: INFECTIOUS DISEASE PROGRESS NOTE SUBJECTIVE: The patient's mental status has not changed. Dr. Coronel'complete note reviewed. Liver function tests that were abnormal being workedup. This is day #13 of 14 of vancomycin for C. difficile colitis, plan onstopping on time. Nothing to suggest active infectious disease processes atthis juncture. All other notes have been reviewed, read, acknowledged andunderstood. Discussed in detail with Dr. Marcial as well as Dr. Issa. Somedegree of risk for infectious disease related complications, but so far so goodon antibiotic holiday, so we will continue t o follow at this juncture. Nursesnote no other specific issues from infectious disease standpoint on the eveningshift. OBJECTIVE:VITAL SIGNS: Temperature 97 degrees, blood pressure 145/72, pulse 78 per minuteand regular, respirations are 21 per minute.GENERAL: He is a well-developed, well-nourished man, in no acute distress.SKIN: No visible lesions.NODES: None were palpable.HEENT: Has not changed.NECK: Supple.LUNGS: Scattered crackles and rhonchi.HEART: Regular rhythm without murmurs, gallops, or rubs.ABDOMEN: Soft, nontender. No hepatosplenomegaly.EXTREMITIES: No clubbing, cyanosis, or significant edema.NEUROLOGIC: The patient is at baseline. LABORATORY DATA AVAILABLE: Has been reviewed. IMPRESSION: Stable from infectious disease standpoint. RECOMMENDATIONS: Completing course of therapy fo r Clostridium difficilecolitis. Nothing to suggest active infectious disease process at present timethough he is at some risk. We will continue to follow and adjust antimicrobialagents and interventions as data and clinical circumstances dictate. Discussedin detail with Dr. Marcial, Dr. Issa and Dr. Coronel. Dictated By: Ismael Julio Jr, MD PATIENT NAME: ELENO SPENCER JR ACCONT #: [id number] WT: PN:S.JEANNETTE/SELINA/NTSDD: 12/19/2020 04:37:42DT: 12/19/2020 04:46:58Conf#: [id number]/DID#: [id number] Authenticated by Ismael Julio MD On 12/19/2020 02:50:39 PM at 1451 PATIENT NAME: ELENO SPENCER JR ACCONT #: [id number] Wrvf4798-23-99M21:46:00S.[id number] a ble for patient mkxzDMSETSONYIKHEA3890-50-09P78:51:19 2020-12-18 11:26:00 [id number]:26:363067-[address] [address] PATIENT NAME: ELENO SPENCER JR ADMIT DATE: 11/22/20ACCOUNT NO: [id number] ROOM NO: S474 AGE: 70 REPORT TYPE: PROGRESS NOTE SEX: M ADMITTING PHYSICIAN:Guy Marcial MD ATTENDING PHYSICIAN:Guy Marcial MD DATE: 12/18/2020 PROGRESS NOTE SUBJECTIVE: Events noted. Discussed with staff. Doing well. No ches t pain,no nausea. No other issues reported overnight. Rehab placement is on holdaccording t o case management specialist. OBJECTIVE:VITAL SIGNS: Blood pressure 130/60, heart rate of 70, and temperature 97.1.HEENT: Head is normocephalic.CHEST AND LUNGS: Bilateral breathing sounds.HEART: Normal S1, S2.ABDOMEN: Soft.EXTREMITIES: No edema. ASSESSMENT AND PLAN:1. Subdural hematoma. Doing well. Echo is normal. Blood pressure controlled.2. Debility. PT, OT, fall precaution. The patient is walking more than 200feet. According to case management specialist, rehab was declined.3. Abnormal AST and ALT. Abdominal ultrasound will be obtained. Dr. Haile, GI service is following the patient.4. Obesity. Assessed weight loss with the patient. Discharge planning is in progress. it audit manager following. Dictated By: Guy Marcial MD WT: PN:S.JEANNETTE/CLARISSA.01/NTSDD: 12/18/2020 11:26:49DT: 12/18/2020 12:13:39Conf#: [id number]/DID#: [id number] Authenticated by Guy Marcial MD On 12/19/2020 02:29:39 PM at 1430 PATIENT NAME: ELENO SPENCER JR ACCONT #: [id number] Nuqo1525-95-71S30:13:00S.[id number] a ble for patient qzoySDMSVPTVIVEZHL8403-87-05A50:30:17 2020-12-18 11:25:00 [id number]:25:938116-6 [address] [place] [address] PATIENT NAME: ELENO SPENCER JR ADMIT DATE: 11/22/20ACCOUNT NO: [id number] ROOM NO: [facility] AGE: 70 REPORT TYPE: PROGRESS NOT E SEX: M ADMITTING PHYSICIAN:Guy Marcial MD ATTENDING PHYSICIAN:Guy Marcial MD DATE: 12/18/2020 PULMONARY PROGRESS NOTE The patient was seen from 09:35 a.m. to 10:00 a.m. A total o f 25 minutes werespent taking care of the patient. SUBJECTIVE: The patient is a 70-year-old man wit h a history of obstructivesleep apnea, seizure disorder that fell hitting his head and developing alteredmental status. The patient was taken to the Emergency Department and he wasfoun d to have a subdural hematoma with increased intracranial bleed in midlineshift. The patient had a craniotomy and evacuation of the hematoma. Thepatient is morbidly obese, but he is on a diet. He is losing significant amountof weight. He has obstructive sleep apnea and he is on a BiPAP device. Thepatient is feeling better. PHYSICAL EXAMINATION:VITAL SIGNS: He has a temperature of 97.8, heart rate of 71, respiratory rateof 18, blood pressure 137/70, an d pulse oximetry of 98%.HEENT: Normocephalic and atraumatic. Pupils are equal and reactive.NECK: Supple. There is no JVD.CHEST: Decreased breath sounds with increased expiratory phase.CARDIOVASCULAR: S1, S2. No murmurs, gallop , or rub.ABDOMEN: Bowel sounds are positive. Soft and nontender.GENITOURINARY: No CVA tenderness.EXTREMITIES: There is no clubbing, cyanosis, or edema.NEUROLOGIC: The patient is awake, alert, oriented x3, and grossly nonfocal. DIAGNOSTIC IMPRESSION:1. Subdural hematoma with altered mental status. This is improved.2. Obstructive sleep apnea. The patient is on a BiPAP at night and during naptimes.3. Hypoxemia. This is getting better.4. Morbid obesity. This i s getting better.5. Possible cirrhosis of fatty liver. The patient had an ultrasound withelastography and this was consistent with cirrhosis. The patient is improving. He is seriously ill and he will be followed veryclosel y in the unit. Dictated By: River Issa MD PATIENT NAME: ELENO SPENCER ACCONT #: [id number] WT: PN:S.HIM/SRINIVAS/NTSDD: 11:25:51DT: 12/18/2020 12:00:10Conf#: [id number]/DID#: [id number] Authenticated by Estevan Issa MD On 12/18/2020 12:55:21 PM at 1255 PATIENT NAME: ELENO SPENCER ACCONT #: [id number] Tche4651-64-46Z40:00:00S.[id number] a ble for patient ckqoFIOURIJNOKLKWC5671-04-42K15:55:48 2020-12-18 07:11:00 [id number]:11:300682-[address] [address] PATIENT NAME: ELENO SPENCER JR ADMIT DATE: 11/22/20ACCOUNT NO: [id number] ROOM NO: [facility] AGE: 70 REPORT TYPE: CONSULTATION SEX: M ADMITTING PHYSICIAN:Guy Marcial MD ATTENDING PHYSICIAN:Guy Marcial MD CONSULTATION DATE: 12/18/2020 CONSULTING PHYSICIAN: Julien Coronel Jr, MD CONSULTATION REPORT CONCLUSION:1 . Persistent abnormal liver enzymes with question of cirrhosis, etiologyuncertain. Rule out nonalcoholic fatty liver disease. Rule out chronichepatitis B infection. Rule out other causes of chronic liver disease.2. Somewhat equivocal elastography without evidence of a nodular liver on CTscan. Rule out cirrhosis. Rul e out cholelithiasis. RECOMMENDATIONS:1. Abdominal ultrasound.2. Repeat a liver elastography and compared to his previous study on11/24/2020.3. Follow up liver profile in a.m.4. KATYA, RPR, and ferritin.5. Serum Copper and ceruloplasmin.6. Antimitochondrial antibody.7. Alpha-1 antitrypsi n level.8. Alpha fetoprotein. DISCUSSION: A 70-year-old moderately obese male who indicates he has had ahistory of a fatty liver for over 15 years and noted to have abnormal liverenzymes. The patient was not aware of having any history of cirrhosis of theliver and has not had any known previous history of other liver diseases. Hehas not had any known history of gallstones. The patient has not had anyimaging studies prior to this hospitalization. It should be noted that thepatient denies any alcohol intake and he is not aware of any family history ofliver disease. It should be noted that during the course of thi s hospitalization, the patienthas had abdominal pelvic CT scan, which demonstrates a normal texture andcontour of the liver and no dilated biliary tree. However, the elastography ofthe liver did suggest cirrhosis, though the quality of the study was felt to besuboptimal. REVIEW OF SYSTEMS:CARDIOPULMONARY: No chest pain or shortness of breath. He does have a history PATIENT NAME: ELENO SPENCER ACCONT #: [id number] of sleep apnea. PAST MEDICAL HISTORY: Has included exogenous to morbid obesity. Obstructivesleep apnea. Seizure disorder, which is required long-term Dilantin therapy. Head trauma resulting in subdural hematoma and mass effect, requiringcraniotomy. Status post bilateral cataract surgery. History of fatty liver,possibly HENDERSON. Questionable cirrhosis by elastography of the liver. Colonoscopy in 2019 normal. Essential hypertension. Previous urinary tractinfection. Some depression/anxiety. FAMILY HISTORY: No family history of liver disease. ALLERGIES: PENICILLIN. HABITS: Denies history of cigarette or alcohol use. MEDICATIONS: See medication administration record. PHYSICAL EXAMINATION:ZION L SIGNS: Height is 5 feet 5 inches, weight is 113 kilograms. Blitrbufbzn07.0, pulse of 65, respirations of 18, blood pressure 160/71.GENERAL: The patient is alert, in no acut e distress.SKIN: Moist without rash.LYMPHATICS: No supraclavicular, no axillary adenopathy.HEENT: Eyes: Pupils are round. The patient is not icteric. Nose: Nasalseptum is in midline. Mouth: Grossly normal oral mucosa. Multiple teethmissing, all missing in the upper jaw area.NECK: Supple without palpable adenopathy. Slightly obese.LUNGS: Clear. No wheezing.ABDOMEN : No surgical scars noted. Bowel sounds are present. Abdomen is softand nontender. Liver and spleen did not appear to be enlarged. There is norebound, no guarding and no discrete mass.EXTREMITIES: No gross deformities. No edema.NEUROLOGIC: The patient is alert and responsive. He has no focal deficit. PERTINENT LABORATORY STUDIES: Today reveal a potassium of 4.5, glucose is 105,BUN of 17 with a creatinine of 0.9. Total bilirubin is 0.2, AST is 60, ALT is74, alkaline phosphatase is 137. H and H is 9. 8 and 29.5 with a WBC of 9800. Hepatitis C antibod y is nonreactive. Elastography of the liver suggestcirrhosis. Abdominopelvic CT scan suggest s normal contour of the liver. ASSESSMENT: The patient has persistent abnormal liver enzymes. Arielle jamil has been onanti-seizure medicine in the form of Dilantin in the past and continues to be onthis, which may contribute to his abnormal liver enzymes. Enzyme pattern hasbeen fairly pronounce d and does warrant assessment for other causes of liverdisease. Cirrhosis is suggested on the elastography though this study byreflected in hi s report is may not be reliable. We will therefore repeatelastography and compare as well as obtain a formal abdominal ultrasound toassess for gallbladder disease as reassessment of the bile duct as well. Thepatient should undergo a screening for other causes of liver disease such asscreening for autoimmune hepatitis, primary biliary cholangitis, alpha-1antitrypsin deficiency, Wyatt disease and hemochromatosis. I have discussed the above considerations and concerns with the patient who is PATIENT NAME: ELENO SPENCER ACCONT #: [id number] in agreement with studies. Thank you for letting me to share in the care of this patient. We will followhim along with you as needed during hospitalization. Dictated By: Julien Coronel Jr, MD WT: CON:SNATANAEL/KARYN/NTSDD: 12/18/2020 07:11:01DT: 12/18/2020 08:57:01Conf#: [id number]/DID#: [id number] Authenticated by Julien Coronel MD On 12/19/2020 06:42:55 AM at 0643 PATIENT NAME: ELENO SPENCER ACCONT #: [id number]3:57:00S.H I [id number] for patient ekylKXTLJXQDDSNPBC8241-74-91C14:43:37 2020-12-18 05:06:00 [id number]:06:137519-0 [address] [place] [address] PATIENT NAME: ELENO SPENCER JR ADMIT DATE: 11/22/20ACCOUNT NO: [id number] ROOM NO: [facility] AGE: 70 REPORT TYPE: PROGRESS NOT E SEX: M ADMITTING PHYSICIAN:Guy Marcial MD ATTENDING PHYSICIAN:Guy Marcial MD DATE: INFECTIOUS DISEASE PROGRESS NOTE SUBJECTIVE: Overall about the same from infectious diseases standpoint. Thisrepresents day #12 of 14 of vancomycin for C. difficile colitis. Repeatcultures so far are negative for any other active infectious disease relatedproblems at present time. Tolerating antibiotics so far without difficulty. Nothing to suggest progressive C. difficile infection. All notes have beenreviewed, read, acknowledged and understood. Discussed in detail with nursingpersonnel at the bedside. OBJECTIVE:VITAL SIGNS: Temperature 97 degrees, blood pressure 112/71, pulse 86 per minuteand regular, respirations are 18 per minute.GENERAL: He is a well-developed, well-nourished man. No acute distress.SKIN: No new visible lesions.NODES: Non e were palpable.HEENT: Has not changed.NECK: Supple.LUNGS: Fairly clear.HEART: Regular rhythm without murmurs, gallops, or rubs.ABDOMEN: Soft, nontender. No hepatosplenomegaly.EXTREMITIES: No clubbing, cyanosis, or significant edema.NEUROLOGIC: The patient is at baseline. LABORATORY DATA AVAILABLE: Has been reviewed. IMPRESSION: Stable from infectious diseases standpoint, no new major issuesnoted. RECOMMENDATIONS: Completing course of therapy as outlined. We will continue asis and adjust antimicrobial agents and interventions as data and clinicalcircumstances dictate. Dictated By: Ismael Julio Jr, MD WT: PN:S.JEANNETTE/SELINA/NTSDD: 12/18/2020 05:06:40DT: 12/18/2020 05:24:39Conf#: [id number]/DID#: [id number] PATIENT NAME: DANICA SPENCER Kati FRANKLIN ACCONT #: [id number] Authenticated by Ismael Julio MD On 12/19/2020 02:50:38 PM at 1451 PATIENT NAME: ELENO SPENCER ACCONT #: [id number] Memu6704-34-58G23:24:00S.[id number] a ble for patient culfYURSUFQJYBMLME4577-17-75Z90:51:19 2020-12-18 03:27:00 [id number]:27:546360-[address] [address] PATIENT NAME: ELENO SPENCER Kati FRANKLIN ADMIT DATE: 11/22/20ACCOUNT NO: [id number] ROOM NO: [facility] AGE: 70 REPORT TYPE: PROGRESS NOT E SEX: M ADMITTING PHYSICIAN:Guy Marcial MD ATTENDING PHYSICIAN:Guy Marcial MD DATE: 12/17/2020 PROGRESS NOTE SUBJECTIVE: Events reviewed. OBJECTIVE:VITAL SIGNS: Blood pressure and heart rate are normal.GENERAL: General condition is good.NEUROLOGIC: Alert and oriented . Speech is normal. Cranial nerves normal. Moving all extremities. LABORATORY DATA: Reviewed. MEDICATIONS: Reviewed. ASSESSMENT AND PLAN: He i s 70-year-old patient with traumatic subdural hematomaand status post craniectomy. Seizures. Neurologically, doing well. Continuepresent treatment. Dictated By: Garrick Xiao WT: PN:S.HIM/NUNOU/NTSDD: 12/18/2020 03:27:40DT: 12/18/2020 03:57:18Conf#: [id number]/DID#: [id number] Authenticated by Garrcik Thompson MD On 12/19/2020 10:55:39 PM at 2256 PATIENT NAME: ELENO SPENCER JR ACCONT #: [id number] Beut9986-35-20K02:57:00S.[id number] a ble for patient kwbxFRYCMEHEMJQIMG7387-51-88L84:56:12 2020-12-17 13:12:00 [id number]:12:724777-[address] [address] PATIENT NAME: ELENO SPENCER JR ADMIT DATE: 11/22/20ACCOUNT NO: [id number] [facility] 70 REPORT TYPE: PROGRESS NOTE SEX: M ADMITTING PHYSICIAN:Guy Marcial MD ATTENDING PHYSICIAN:uGy Marcial MD DATE: 12/17/2020 PROGRESS NOTE SUBJECTIVE: Events note d and discussed with nursing staff. Doing about thesame, awake and alert. No chest pain, no nausea. OBJECTIVE:VITAL SIGNS: Blood pressure 122/60, heart rate 71, temperature 97.8,respiratory rate 17.HEENT: Head is normocephalic.CHEST AND LUNGS: Bilateral breathing sounds.CARDIOVASCULAR: S1, S2.ABDOMEN: Soft.EXTREMITIES: No edema. PERTINENT FINDINGS:1 . Sodium 141.2. Potassium 4.5.3. Chloride 102.4. Hemoglobin 9.8. ASSESSMENT AND PLAN:1. Subdural hematoma, improved. He is seeing physical therapy.2. Debility. PT, OT, fall precaution ___ _ getting better. Plan is to send himto a [facility], pending insurance approval.3. Respiratory failure, improved. The patient on oxygen as needed. Dr. Issa,pulmonary service is following the patient. Continue the patient on DuoNebevery 4 hours as needed.4. Abnormal liver panel, GI service, Dr. Julien Coronel will be consulted. Dictated By: Guy Marcial MD WT: PN:SNATANAEL/CLARISSA./NTSDD: 12/17/2020 13:12:35DT: 12/17/2020 14:01:40Conf#: [id number]/DID#: [id number] Authenticated by Guy Marcial MD On 12/19/2020 02:29:38 PM PATIENT NAME: ELENO SPENCER JR ACCONT #: [id number] at 1430 PATIENT NAME: ELENO SPENCER JR ACCONT #: [id number] Dlzg0721-30-97E35:01:00S.[id number] a ble for patient klhnGTAGFWPGRNNNJJ6117-33-63G28:30:18 2020-12-17 11:45:00 [id number]:45:110290-[address] [address] PATIENT NAME: ELENO SPENCER JR ADMIT DATE: 11/22/20ACCOUNT NO: [id number] ROOM NO: [facility] AGE: 70 REPORT TYPE: PROGRESS NOT E SEX: M ADMITTING PHYSICIAN:Guy Marcial MD ATTENDING PHYSICIAN:Guy Marcial MD DATE: 12/17/2020 PULMONARY PROGRESS NOTE The patient was seen from 9:50 to 10:15. The patient was discussed with OK Bowen. SUBJECTIVE: The patien t is a 70-year-old man with a history of morbid obesity,seizure disorder, obstructive sleep apne a that fell, hit his head and developeda subdural hematoma with mass effect. The patient had to have a craniotomy torelieve the intracranial pressure and the midline shift. The patient did well. He was transferred to [facility] where he was placed on BiPAP due tothe fact that he has severe sleep apnea. The patient is to use the machinewhile he sleeps at whatever time of the day. The patient is morbidly obese. Hehas been advised to lose weight and he has done so. The patient is to betransferred to a rehab facility. PHYSICAL EXAMINATION:VITAL SIGNS: Temperature is 97.8, heart rate is 71, respiratory rate is 18, andblood pressure is 132/69, and the pulse oximetry is 93% to 98% on 2 liters vianasal cannula.HEENT: Normocephalic, atraumatic. Pupils are equal and reactive.NECK: Supple. There is no JVD.CHEST: Clear to auscultation.CARDIOVASCULAR: S1, S2. No murmurs, gallop, or rub.ABDOMEN: Bowel sounds are positive. Soft and nontender.GENITOURINARY: No CVA tenderness.EXTREMITIES: There is no clubbing , cyanosis, or edema. LABORATORY DATA: Sodium is 141, potassium is 4.5, chloride is 102, CO2 is 29,glucose is 105, BUN is 17, creatinine 0.9, total protein is 6.2, albumin is 3.8,calcium is 8.7, bilirubin is 0.2, SGOT 60, SGPT 74, alkalin e phosphatase 137. White count is 9.8 with an H an d H of 9.8 and 29.5 with a 301,000 platelets. DIAGNOSTIC IMPRESSION:1. Status post subdural hematoma. The patient is doing better. He still hassome areas that need to reabsorb. He needs to be followed up for that.2. Respiratory failure, obstructive sleep apnea. The patient is on oxyge n andon BiPAP while he sleeps.3. History of seizur e disorder.4. Morbid obesity. PATIENT NAME: ELENO SPENCER [facility] #: [id number] 5. Possible cirrhosis by ultrasound with elastography. The patient haselevated liver function test. The patient is seriously ill and he will befollowed very closely in the unit. Dictated By: River Issa MD WT: PN:S.JEANNETTE/SRINIVAS/BRAYDENDD: 12/17/2020 11:45:16DT: 12/17/2020 11:57:53Conf#: [id number]/DID#: [id number] Authenticated by Estevan Issa MD On 12/17/2020 01:56:08 PM at 1356 PATIENT NAME: ELENO SPENCER JR ACCONT #: [id number] Hohx5785-44-87J03:57:00S.[id number] a ble for patient vxpqKJMHYOINPLNJEN1270-60-59F28:56:37 2020-12-17 04:36:00 [id number]:36:950054-[address] [address] PATIENT NAME: ELENO SPENCER JR ADMIT DATE: 11/22/20ACCOUNT NO: [id number] ROOM NO: [facility] AGE: 70 REPORT TYPE: PROGRESS NOT E SEX: M ADMITTING PHYSICIAN:Guy Marcial MD ATTENDING PHYSICIAN:Guy Marcial MD DATE: INFECTIOUS DISEASE PROGRESS NOTE SUBJECTIVE: The patient's mental status overall has not changed. Nurses noteno other issues from infectious diseases' standpoint through the evening. Day#11 of 14 of vancomycin for the C. difficile colitis . All notes have beenreviewed, read, acknowledged, and understood from the team. Discussed in detailwith nursing personnel at the bedside. Discharge planning is noted. Discussedin detail with Dr. Marcial as well as Dr. Issa as usual. Nurses note no otherissues from infectious disease standpoint through the evening. OBJECTIVE:VITAL SIGNS: Temperature is 97 degrees , blood pressure 139/61, pulse 84 perminute and regular, respirations are 20 per minute.GENERAL: He is a well-developed, well-nourished man, in n o acute distress.SKIN: No new visible lesions.NODES: None were palpable.HEENT: Has not changed.NECK: Supple.LUNGS: Scattered crackles, fairly clear.HEART: Regular rhythm without murmurs, gallops, or rubs.ABDOMEN: Soft, nontender. No hepatosplenomegaly.EXTREMITIES: No clubbing, cyanosis, or significant edema.NEUROLOGIC: The patient is at baseline. LABORATORY DATA AVAILABLE: Has been reviewed. IMPRESSION: Stable from infectious diseases standpoint, course of therapy forClostridium difficile colitis. RECOMMENDATIONS: Continuing a s is for now. No antibiotic changes are indicateda t present time. Remain vigilant for further nosocomial issues and adjustinterventions as meghna a and clinical circumstances dictate. Dictated By: Ismael Julio Jr, MD WT: PN:S.HIM/SELINA/NTSDD: 12/17/2020 04:36:46DT: 12/17/2020 05:01:10Conf#: [id number]/DID#: [id number] PATIENT NAME: DANICA SPENCER JR ACCONT #: [id number] Authenticated by Ismael Julio MD On 12/19/2020 02:50:37 PM at 1451 PATIENT NAME: ELENO SPENCER JR ACCONT #: [id number] Fswg9921-61-35C86:01:00S.[id number] a ble for patient hfszVZDKQMQFNGNVWL2109-91-60T74:51:18 2020-12-16 17:26:00 [id number]:26:961468-[address] [address] PATIENT NAME: ELENO SPENCER JR ADMIT DATE: 11/22/20ACCOUNT NO: [id number] ROOM NO: [facility] AGE: 70 REPORT TYPE: PROGRESS NOT E SEX: M ADMITTING PHYSICIAN:Guy Marcial MD ATTENDING PHYSICIAN:Guy Marcial MD DATE: 12/16/2020 SUBJECTIVE: Events noted, doing well. No chest pain, no nausea. OBJECTIVE:VITAL SIGNS: Blood pressure 130/60, heart rate of 80, and temperature 97.HEENT: Head is normocephalic.CHES T AND LUNGS: Bilateral breathing sounds.HEART: Normal S1, S2.ABDOMEN: Soft.EXTREMITIES: No edema. LABORATORY DATA: Potassium 4.3. ASSESSMEN T AND PLAN:1. Subdural hematoma. Doing well. Following with therapies. Dischargeplanning in progress. Case management department following the patient.2. Respiratory failure, resolved, an d is stable. BiPAP at nighttime. , pulmonary service is following the patient. Continue the patient onDuoNeb every 4 hours as needed.3. Diabetes mellitus type 2. Continue the patient on Lantus 10 units daily. The patient is on sliding scale insulin.4. Hypertension, controlled. Dictated By: Guy Marcial MD WT: PN:S.JEANNETTE/CLARISSA.01/NTSDD: 12/16/2020 17:26:05DT: 12/16/2020 18:06:40Conf#: [id number]/DID#: [id number] Authenticated by Guy Marcial MD On 12/19/2020 02:29:37 PM at 1430 PATIENT NAME: ELENO SPENCER JR ACCONT #: [id number] Djlh0741-32-78U71:06:00S.[id number] a ble for patient xbxwOOGKLSWNQYZGWK0659-60-60V73:30:17 2020-12-16 11:57:00 [id number]:57:343721-[address] [address] PATIENT NAME: ELENO SPENCER JR ADMIT DATE: 11/22/20ACCOUNT NO: [id number] ROOM NO: [facility] AGE: 70 REPORT TYPE: PROGRESS NOT E SEX: M ADMITTING PHYSICIAN:Guy Marcial MD ATTENDING PHYSICIAN:Guy Marcial MD DATE: 12/16/2020 PULMONARY PROGRESS NOTE The patient was seen from 8:45 a.m. to 9:10 a.m. A total of 25 minutes werespent taking care of the patient. SUBJECTIVE: The patient is a 70-year-old man wit h a history of morbid obesity,hypertension and seizure disorder that fell head on and developed a subduralhematoma. The patient had to go to the OR due to the fact that he had anincreased intracranial pressure with midline shift. The hematoma was evacuated. The patient is doing better. He has obstructive sleep apnea and he is on aBiPAP that he uses while asleep either at night or during the daytime whiletaking naps. Th e patient is doing better. He is awaiting to be transferred toa rehab facility. The patient has been encouraged to lose weight, which willhelp him tremendously with his present health and future. PHYSICAL EXAMINATION:VITAL SIGNS: He has a temperature of 97.8, heart rate of 68, respiratory rateof 18, blood pressure is 131/67 and the pulse oximetry is 98% on 2 liters vianasal cannula.HEENT: Normocephalic, atraumatic. Pupils react to light.NECK: Supple. There is no JVD. The patient has a Mallampati stage III to IV.CHEST: Clear to auscultation.CARDIOVASCULAR: S1, S2. No murmurs, gallop or rub.ABDOMEN: Positive bowel sounds, obese and nontender.GENITOURINARY: No CVA tenderness.EXTREMITIES: There is no clubbing, cyanosis or edema.NEUROLOGIC: The patient is awake, alert, oriented x3 and grossly nonfocal. DIAGNOSTIC IMPRESSION:1. Obstructive sleep apnea , doing well on BiPAP.2. Obesity, doing well. He i s losing weight and I have been encouraging to doso.3. Weakness and debility. The patient will be going to a rehab center.4. Respiratory failure. The patient is most of the time on room air. Sometimes he needs nasal cannula, especiall y when he is lying down and his lungbases are pressed by his prominent abdomen.5. Seizure disorder, on Dilantin.6. Diabetes, on Levemir an d NovoLog.7. Peptic ulcer disease prophylaxis. The patient is on oral Protonix. PATIENT NAME: ELENO SPENCER [facility] #: [id number] 8. Deep venous thrombosis prophylaxis. The patient is on SCDs and is beingencouraged to ambulate. H e cannot be anticoagulated due to his recent CNSbleed.9. Urinary tract infection. He is on nitrofurantoin.10. Cirrhosis versus fatty liver, with an ultrasound of the right upperquadrant with elastography suggesting cirrhosis as the diagnosis. The patientis on a diabetic diet and in the future should not consume alcohol or excessiveamount of carbohydrates. Weight reduction is also imperative. The patient willbe followed closely. Dictated By: River Issa MD WT: PN:S.JEANNETTE/SRINIVAS/NTSDD: 12/16/2020 11:57:47DT: 12/16/2020 13:14:01Conf#: [id number]/DID#: [id number] Authenticated by Estevan Issa MD On 12/16/2020 01:39:13 PM at 1339 PATIENT NAME: ELENO SPENCER JR ACCONT #: [id number] Sgld4516-89-46J58:14:00S.[id number] a ble for patient jxpuEJYGQPLUAWBJLU0245-98-54A33:39:41 2020-12-16 04:46:00 [id number]:46:630039-6 [address] [place] [address] PATIENT NAME: ELENO SPENCER JR ADMIT DATE: 11/22/20ACCOUNT NO: [id number] ROOM NO: [facility] AGE: 70 REPORT TYPE: PROGRESS NOT E SEX: M ADMITTING PHYSICIAN:Guy Marcial MD ATTENDING PHYSICIAN:Guy Marcial MD DATE: INFECTIOUS DISEASE PROGRESS NOTE SUBJECTIVE: The patient's mental status has not changed, alert and attentive. Day #10 of 14 of vancomycin for C . difficile colitis. No other new positiveculture data of concern. Repeat blood and urine cultures are negative. Sonothing to suggest a systemic infection at present time, which is good news. All notes have been reviewed, read, acknowledged and understood. Discussed indetail with nursing personnel at bedside as well as Dr. Issa and Dr Rahul Marcial. OBJECTIVE:VITAL SIGNS: Temperature 98 degrees, blood pressure 135/71, pulse 73 per minuteand regular, respirations are 17 per minute.GENERAL: He is a well-developed, well-nourished man. No acute distress.SKIN: No new visible lesions.NODES: None were palpable.HEENT: Has not changed.NECK: Supple.LUNGS: Scattered crackles and rhonchi.HEART: Regular rhythm without murmurs, gallops, or rubs.ABDOMEN: Soft, nontender. No hepatosplenomegaly.EXTREMITIES: No clubbing, cyanosis, or significant edema.NEUROLOGIC: No specific new focal findings. LABORATORY DATA AVAILABLE: Has been reviewed. IMPRESSION: Stable from infectious diseases standpoint, no new fernanda r issuesnoted. RECOMMENDATIONS: We will continue a s is for now. No antibiotic changes areindicated a t present time. Remain vigilant for further nosocomial issues andadjust interventions as meghna a and clinical circumstances dictate. Dictated By: Ismael Julio Jr, MD WT: PN:S.JEANNETTE/SELINA/NTSDD: 12/16/2020 04:46:15DT: 12/16/2020 04:58:20Conf#: [id number]/DID#: [id number] PATIENT NAME: DANICA SPENCER ACCONT #: [id number] Authenticated by Ismael Julio MD On 12/19/2020 02:50:36 PM at 1451 PATIENT NAME: DANICA SPENCER ACCONT #: [id number] Yqrt1641-85-69K54:58:00S.[id number] a ble for patient xyoxSLIYCEOBVNPSQL7379-65-64R99:51:08 2020-12-16 00:54:00 [id number]:54:898747-[address] [address] PATIENT NAME: ELENO SPENCER JR ADMIT DATE: 11/22/20ACCOUNT NO: [id number] ROOM NO: [facility] AGE: 70 REPORT TYPE: PROGRESS NOT E SEX: M ADMITTING PHYSICIAN:Guy Marcial MD ATTENDING PHYSICIAN:Guy Marcial MD DATE: 12/15/2020 SUBJECTIVE: The patient seen and examined in his room. He states that earliertoday, he got dizzy. He was lying down an d when he tried to sit, he hadspinning sensation lasting for a minute or two. After a few minutes , he triedagain and on moving and changing posture , he felt again and had vertigo forbrief 1 or 2 minutes. This happened when physical therapist was there forphysical therapy. Because of these episodes, he did not do physical therapytoday. However, yesterday he ambulated fairly well in the hallway and does notfeel unsteady. No headache. OBJECTIVE:VITAL SIGNS: Normal.GENERAL: General condition is good. He is oriented x3. Speech is normal. Cranial nerves are normal.EXTREMITIES: Moving all extremities. LABORATORY DATA: Reviewed. MEDICATIONS: Reviewed . ASSESSMENT AND PLAN: He is a 70-year-old patient , who is status post traumaticsubdural hematoma over the right hemisphere for which he had surgery withcraniectomy. He has made excellent recovery. Neurologically doing well. Continue present treatment. History of dizziness on changing position. It seems he probably had benignparoxysmal positional vertigo. If symptoms will persist, then we will start himon meclizine . For present, continue current treatment. Dictate d By: Garrick Xiao WT: PN:S.JEANNETTE/RIKKI/BRAYDENDD: 12/16/2020 00:54:10DT: 12/16/2020 01:04:12Conf#: [id number]/DID#: [id number] Authenticated by Garrick Thompson MD On 12/17/2020 08:26:26 PM PATIENT NAME: JOHANNAELENORenetta Vallejo JR ACCONT #: [id number] at 2025 PATIENT NAME: ELENO SPENCER JR ACCONT #: [id number] Qmxx8444-20-19G87:04:00S.[id number] a ble for patient wlkqQHHMXLJGCZMKZK8173-54-43E21:26:53 2020-12-15 16:30:00 [id number]:30:854355-6 026 [facility] [address] [place] [address] PATIENT NAME: ELENO SPENCER JR ADMIT DATE: 11/22/20ACCOUNT NO: [id number] ROOM NO: [facility] AGE: 70 REPORT TYPE: PROGRESS NOT E SEX: M ADMITTING PHYSICIAN:Guy Marcial MD ATTENDING PHYSICIAN:Guy Marcial MD DATE: 12/15/2020 PROGRESS NOTE SUBJECTIVE: Events noted. Discussed with nursing staff. Doing well. No chestpain, no nausea, no other issues reporte d overnight. Diarrhea has improved. OBJECTIVE:ZION L SIGNS: Blood pressure 130/60, heart rate of 60, and temperature 37.HEENT: Head is normocephalic.CHEST AND LUNGS: Bilateral breathing sounds.CARDIOVASCULAR: S1, S2.ABDOMEN: Soft.EXTREMITIES: No edema. PERTINENT FINDINGS: COVID screen was negative. ASSESSMENT AND PLAN:1 . Acute hypoxemic respiratory failure, resolved, stable. Dr. Issa, pulmonaryservice is following the patient. Rehab placement is in progress.2. Subdural hematoma. The patient has ____ and doin g well. Physical therapyfollowing the patient. The patient is on fall precaution.3. Clostridium difficile colitis, treated. Diarrhea, improving. Dr. Hernandez, infectious disease following e patient.4. Debility. PT, OT, fall precaution. [facility] . The [facility] will be [facility] to a [facility]. Casemanagement department following. Dictated By: Guy Marcial MD WT: PN:S.JEANNETTE/CLARISSA./NTSDD: 12/15/2020 16:30:21DT: 12/15/2020 17:55:20Conf#: [id number]/DID#: [id number] Authenticated by Guy Marcial MD On 12/16/2020 01:25:46 PM PATIENT NAME: ELENO SPENCER JR ACCONT #: [id number] at 1326 PATIENT NAME: ELENO SPENCER JR ACCONT #: [id number] Mxil0444-12-53Q14:55:00S.[id number] a ble for patient rnadFWJAJFFXBGLZTJ9216-88-76F87:26:21 2020-12-15 10:42:00 [id number]:42:788525-3 023 [facility] [address] [place] [address] PATIENT NAME: ELENO SPENCER JR ADMIT DATE: 11/22/20ACCOUNT NO: [id number] ROOM NO: [facility] AGE: 70 REPORT TYPE: PROGRESS NOT E SEX: M ADMITTING PHYSICIAN:Guy Marcial MD ATTENDING PHYSICIAN:Guy Marcial MD DATE: 12/15/2020 PULMONARY PROGRESS NOTE The patient was seen from 7:35 a.m. to 8:00 a.m. A total of 35 minutes werespent taking care of the patient. The patient was discussed with OK Riggs. SUBJECTIVE: The patient is a 70-year-old man wit h a history of seizuredisorder, who fell and hit his head, developing a subdural hematoma. Thepatient was found to have on CT scan and clinically signs of increasedintracranial pressure and midline shift. The patient had a craniotomy withevacuation of the hematoma. The patient's followup MRI shows some residualblood products in the INSO[place]IP TURNER and this will need to be followed up as an outpatient. The patient is morbidly obese. He has lost significant weight with a diet thathe was placed. The patient has obstructive sleep apnea. He is on CPAP and [facility]is doing [facility]. The patient is tolerating his CPAPwell. He is using it at night and during naps. PHYSICAL EXAMINATION:ZION L SIGNS: He has a temperature of 98, heart rate of 83, respiratory rate of19, blood pressure is 149/74, and pulse oximetry is 96% on room air.HEENT: Normocephalic, atraumatic. Pupils are equal and reactive.NECK: Supple. There is no JVD.CHEST: Clear to auscultation.CARDIOVASCULAR: S1, S2. No murmurs, gallop, or rub.ABDOMEN: Freddy l sounds are positive. Soft and nontender.GENITOURINARY: No CVA tenderness.EXTREMITIES: There is no clubbing, cyanosis, or edema.NEUROLOGIC: The patient is awake, alert, oriented x3, and grossly nonfocal. The patient is obese. LABORATORY DATA: Sodium is 139, potassium is 4.3, chloride is 106, CO2 is 26,glucose is 104, BUN is 19, creatinine is 1.0, total protein is 6.2, albumin is3.8. His SGOT is 56, SGPT is 60, alkaline phosphatase is 134. White count is8.7 with an H and H of ____ with 307,000 platelets. COVID-19 done yesterday wasnegative and he got this because he will be moving to a rehabilitation facility. DIAGNOSTIC IMPRESSION:1. Status post subdural hematoma with craniotomy and evacuation. PATIENT NAME: ELENO SPENCER JR ACCONT #: [id number] 2. Obstructive sleep apnea. The patient is on BiPAP at night and when hesleeps during the daytime.3. Obesity. The patient has lost significant amount of weight. He has beenencouraged to lose weight. He has most likely a fatty liver. He had anelectrographic study of his liver and it showe d changes consistent with eithercirrhosis or other process. His liver function tests have improved as thepatient loses weight.4. Weakness and debility. The patient is recovering. The patient is doingphysical therapy.5. Respiratory failure. The patient is now on room air.6. Seizure disorder. The patient is on Dilantin.7. Diabetes . He is on Levemir and NovoLog.8. Peptic ulcer disease prophylaxis. He is on Protonix.9. Deep venous thrombosis prophylaxis. He is on sequential compression devicesand he is ambulating. He cannot be anticoagulated due to his subdural hematoma.10. Urinary tract infectio n with Escherichia coli. The patient is onnitrofurantoin. The patient is seriously ill and he will be followed very closely in the unit . Dictated By: River Issa MD WT: PN:S.JEANNETTE/SRINIVAS/BRAYDENDD: 12/15/2020 10:42:27DT: 12/15/2020 11:07:00Conf#: [id number]/DID#: [id number] Authenticated by Estevan Issa MD On 12/15/2020 01:12:14 PM at 1312 PATIENT NAME: ELENO SPENCER JR ACCONT #: [id number] Auad0810-09-32H27:07:00S.[id number] a ble for patient zdqoWUMZGVKUSUYNDG4392-27-77Y93:12:40 2020-12-15 04:42:00 [id number]:42:997920-7 010 [facility] [address] [place] [address] PATIENT NAME: ELNEO SPENCER JR ADMIT DATE: 11/22/20ACCOUNT NO: [id number] ROOM NO: [id number] AGE: 70 REPORT TYPE: PROGRESS NOT E SEX: M ADMITTING PHYSICIAN:Guy Marcial MD ATTENDING PHYSICIAN:Guy Marcial MD DATE: INFECTIOUS DISEASE PROGRESS NOTE SUBJECTIVE: The patient is overall about the same, off of antibiotics forurinary tract infection. Urine culture is clean. Day #9 of 14 vancomycin forClostridium difficile colitis, tolerating so far without difficulty. All noteshave been reviewed, read, acknowledged and understood. Discussed in detail withnursing personnel as wel l as Dr. Marcial and Dr. Issa. All notes have beenreviewed, read, acknowledged and understood from the team. Nurses note nospecific issues fro m infectious disease standpoint through the [facility]. OBJECTIVE:VITAL SIGNS: Temperature 97 degrees, blood pressure 150/77, pulse 66 per minuteand regular, respirations are 20 per minute.GENERAL: He is a well-developed, well-nourished man, who at present time is inno acute distress.SKIN: No new visible lesions.NODES: None were palpable.HEENT: Has not changed.NECK: Supple.LUNGS: Scattered crackles, fairly clear.HEART: Regular rhythm without murmurs, gallops, or rubs.ABDOMEN: Soft, nontender. No hepatosplenomegaly.EXTREMITIES: No clubbing, cyanosis, or significant edema.NEUROLOGIC: No specific new focal findings . LABORATORY DATA AVAILABLE: Has been reviewed. IMPRESSION: Stable from infectious diseases standpoint. Completing course oftherapy for the Clostridium difficile colitis. RECOMMENDATIONS: Continue as is for now. No antibiotic changes ar e indicatedat present time. Remain vigilant for further nosocomial issues and adjustintervention s as data and clinical circumstances dictate. Dictated By: Ismael Julio Jr, MD WT: PN:S.JEANNETTE/SELINA/NTSDD: 12/15/2020 04:42:32 PATIEN T NAME: ELENO SPENCER JR ACCONT #: [id number] Conf#: [id number]/DID#: [id number] Authenticated by Ismael Julio MD On 12/15/2020 01:23:51 PM at 1324 PATIENT NAME: ELENO SPENCER JR ACCONT #: [id number] Cbap0864-72-93C54:14:00S.[id number] a ble for patient vgqdIZGCNCGBRRTCWG2277-91-13Q03:24:31 2020-12-14 13:00:00 [id number]:00:083504-5 [address] [place] [address] PATIENT NAME: ELENO SPENCER JR ADMIT DATE: 11/22/20ACCOUNT NO: [id number] ROOM NO: S.[facility] AGE: 70 REPORT TYPE: PROGRESS NOTE SEX: M ADMITTING PHYSICIAN:Guy Marcial MD ATTENDING PHYSICIAN:Guy Marcial MD DATE: 12/14/2020 PROGRESS NOTE SUBJECTIVE: Events noted. Doing well. Sitting in a chair. No chest pain, nonausea. No other issues reported overnight. Diarrhea has improved. He isdisappointed about denial for rehab placement. OBJECTIVE:VITAL SIGNS: Blood pressure 120/70, heart rate of 60, temperature 36.5, andrespiratory rate 17.HEENT: Head is normocephalic.CHEST AND LUNGS: Bilateral breathing sounds.HEART: Normal S1, S2.ABDOMEN: Soft.EXTREMITIES: No edema. PERTINENT FINDINGS:1 . Hemoglobin 9.9.2. WBC 8.7. 3. Potassium 4.3. ASSESSMENT AND PLAN:1. Acute hypoxemic respiratory failure, improved, stable. Dr. Issa pulmonaryser is following the patient.2. Subdural hematoma. Doing well. Discharge vinayak vallejo is in progress per casemanagement department. Th e patient will be discharged to [facility].3. Seizure, controlled. Continue the patient on Dilantin 100 t.i.d.4. Diabetes mellitus type 2. Monitor blood sugar a.c. and at bedtime. Thepatient is on sliding scale insulin. Dictated By: Guy Marcial MD WT: PN:S.HIM/CLARISSA.01/NTSDD : 12/14/2020 13:00:35DT: 12/14/2020 13:17:05Conf#: [id number]/DID#: [id number] Authenticated by Guy Marcial MD On 12/14/2020 09:53:50 PM PATIENT NAME : ELENO SPENCER JR ACCONT #: [id number] at 2154 PATIENT NAME: ELENO SPENCER JR ACCONT #: [id number] Broy7333-45-17K62:17:00S.[id number] a ble for patient skayDNEXZDEBALLFWJ2053-55-44R70:54:46 2020-12-14 09:39:00 [id number]:39:802345-[address] [address] PATIENT NAME: ELENO SPENCER JR ADMIT DATE: 11/22/20ACCOUNT NO: [id number] ROOM NO: [facility] AGE: 70 REPORT TYPE: PROGRESS NOT E SEX: M ADMITTING PHYSICIAN:Guy Marcial MD ATTENDING PHYSICIAN:Guy Marcial MD DATE: 12/14/2020 PULMONARY PROGRESS NOTE The patient was seen from 8:10 a.m. to 8:35 a.m. A total of 35 minutes werespent taking care of the patient. SUBJECTIVE: The patient is a 70-year-old man wit h a history of seizure disorderwho fell, hit his head and developed a subdural hematoma. The patient wasadmitted to the hospital and he was found to have midline shift and changes areconsistent with an increased intracranial pressure. The patient had acraniotomy with which the blood products that he had in his brain were drainedand removed. The patient's INSOLE LIP TURNER was closed. The patient is obese, hasobstructive sleep apnea and sometimes he does not wear his CPAP while he isnapping during the daytime. He usually wears well at night. The patient feelsbetter. PHYSICAL EXAMINATION:VITAL SIGNS: H e has a temperature of 97.9, heart rate is 66, respiratory rateis 18, blood pressure 136/76, an d pulse oximetry is 95% on 2 liters via nasalcannula.HEENT: Normocephalic, atraumatic. Pupils are equal and reactive.NECK: Supple. Ther e is no JVD.CHEST: Decreased breath sounds with shallow breathing. The patient is quiteobese.CARDIOVASCULAR: S1, S2. No murmurs, gallop, or rub.ABDOMEN: Bowel sounds positive. Soft and nontender.GENITOURINARY: No CVA tenderness.EXTREMITIES: There is no clubbing, cyanosis, or significant edema.NEUROLOGIC: The patient is awake, alert, oriented x3, and grossl y nonfocal. ASSESSMENT AND PLAN:1. Obstructive sleep apnea. The patient is on BiPAP at night.2. Obesity. He has been encouraged repeatedly to quit smoking. We will get adietary consult.3. Status post subdural hematoma with severe mental status changes, requiring acraniotomy and evacuation. He also had a midline shift consistent with anincreased intracranial pressure.4. Weakness and debility. The patient i s going to go for rehabilitation.5. Respiratory failure. The patient at times needs 2 liters of oxygen by nasalcannula. The patient is seriously ill and he will be followed closely in the PATIENT NAME: ELENO SPENCER [facility] #: [id number] unit. Dictated By: River Issa MD WT: PN:S.JEANNETTE/SRINIVAS/NTSDD: 12/14/2020 09:39:44DT: 12/14/2020 10:39:31Conf#: [id number]/DID#: [id number] Authenticated by Estevan Issa MD On 12/14/2020 11:24:24 AM at 1124 PATIENT NAME: ELENO SPENCER JR ACCONT #: [id number] Ilqx5287-15-61N72:39:00S.[id number] a ble for patient azddEQAVLCVDTDYEKV0564-25-95G62:25:03 2020-12-14 04:16:00 [id number]:16:700701-[address] [address] PATIENT NAME: ELENO SPENCER JR ADMIT DATE: 11/22/20ACCOUNT NO: [id number] ROOM NO: S.[facility] AGE: 70 REPORT TYPE: PROGRESS NOT E SEX: M ADMITTING PHYSICIAN:Guy Marcial MD ATTENDING PHYSICIAN:Guy Marcial MD DATE: INFECTIOUS DISEASE PROGRESS NOTE SUBJECTIVE: Mental status overall has not changed. All notes reviewed, read,acknowledged and understood. Discussed in detail with nursing personnel at thebedside. Tolerating antibiotics so far withou t difficulty. Good news is repeaturine culture is negative, so we will stop the Macrobid after today at day 7. The 8 of 14 of vancomycin for C. difficile colitis. Otherwise, no specificother new complaints or issues are noted. OBJECTIVE:VITAL SIGNS: Temperature 97 degrees, blood pressure 130/73, pulse 71 per minuteand regular, respirations are 18 per minute.GENERAL: He is a well-developed, well-nourished man. No acute distress.SKIN: No new visible lesions.NODES: None were palpable.HEENT: Has not changed.NECK: Supple.LUNGS: Scattered crackles, fairly clear.HEART: Regular rhythm without murmurs, gallops, or rubs.ABDOMEN: Soft, nontender. No hepatosplenomegaly.EXTREMITIES: No clubbing, cyanosis, or significant edema.NEUROLOGIC: No specific new focal findings . LABORATORY DATA AVAILABLE: Has been reviewed. IMPRESSION: Stable from an infectious diseases standpoint, no new major issuesnoted. RECOMMENDATIONS: Good news is his urine culture is negative. Continue presentsupportive care and adjust antimicrobial agents and interventions as data andclinical circumstances dictate. Dictated By: Ismael Julio Jr, MD WT: PN:S.JEANNETTE/SELINA/NTSDD: 12/14/2020 04:16:42DT: 12/14/2020 04:50:12Conf#: [id number]/DID#: [id number] PATIENT NAME: ELENO SPENCER JR ACCONT #: [id number] Authenticated by Ismael Julio MD On 12/14/2020 01:14:45 PM at 1315 PATIENT NAME: ELENO SPENCER JR ACCONT #: [id number] Kpru3335-55-08B05:50:00S.[id number] a ble for patient npctETGQWVVFONUXVN2984-35-04Y64:15:19 2020-12-14 00:06:00 [id number]:06:390134-1 [address] [place] [address] PATIENT NAME: ELENO SPENCER JR ADMIT DATE: 11/22/20ACCOUNT NO: [id number] ROOM NO: [facility] AGE: 70 REPORT TYPE: PROGRESS NOT E SEX: M ADMITTING PHYSICIAN:Guy Marcial MD ATTENDING PHYSICIAN:Guy Marcial MD DATE: 12/13/2020 PROGRESS NOTE SUBJECTIVE: The patient is seen in his room. No new events. OBJECTIVE:GENERAL: Condition is good.VITAL SIGNS : Stable.NEUROLOGIC: Speech is normal. Cranial nerves are normal.EXTREMITIES: Moving all extremities. LABORATORY DATA: Reviewed. MEDICATIONS: Reviewed. ASSESSMENT AND PLAN: He i s a 70-year-old gentleman who is status post traumaticsubdural hematoma over right hemisphere with left-sided weakness. He has madevery good recovery. No significant motor weakness in his left upper and lowerextremities. Neurologically, doing better. Continue present treatment. Dictated By: Garrick Xiao WT: PN:S.JEANNETTE/RIKKI/BRAYDENDD: 12/14/2020 00:06:39DT: 12/14/2020 00:13:26Conf#: [id number]/DID#: [id number] Authenticated by Garrick Thompson MD On 12/14/2020 10:23:07 PM at 2223 PATIENT NAME: ELENO SPENCER JR ACCONT #: [id number] Qfyu5875-60-56Q50:13:00S.[id number] a ble for patient hzboOCYJXRLXOZUCEN0937-92-42H56:23:45 2020-12-13 15:40:00 [id number]:40:632805-[address] [address] PATIENT NAME: ELENO SPENCER JR ADMIT DATE: 11/22/20ACCOUNT NO: [id number] ROOM NO: S.474 AGE: 70 REPORT TYPE: PROGRESS NOT E SEX: M ADMITTING PHYSICIAN:Guy Marcial MD ATTENDING PHYSICIAN:Guy Marcial MD DATE: SUBJECTIVE: Events noted. Discussed with nursing staff. Doing about the same. No chest pain, no nausea, no other issues reported overnight. Discussed withDr. Issa. OBJECTIVE:VITAL SIGNS: Blood pressure 138/60, heart rate of 80, temperature 97.4, andrespiratory rate 17.HEENT: Head is normocephalic.NECK: Supple.CHEST AND LUNGS: Bilateral breathing sounds.HEART: Normal S1, S2.ABDOMEN: Soft.EXTREMITIES: No edema. ASSESSMENT AND PLAN:1. Obstructive sleep apnea, BiPAP at nighttime, on supplemental oxygen asneeded.2. Obesity. Assessed weight loss ____.3 . Subdural hematoma, improving receiving physical therapy, PT, OT, fallprecaution.4. Hypertension, controlled. Continue the patient on losartan. Cardiology,Dr. Mcmanus following. Dictated By: Guy Marcial MD WT: PN:S.JEANNETTE/CLARISSA./NTSDD: 12/13/2020 15:40:16DT: 12/13/2020 16:10:45Conf#: [id number]/DID#: [id number] Authenticated by Guy Marcial MD On 12/14/2020 09:01:44 AM at 0902 PATIENT NAME: ELENO SPENCER JR ACCONT #: [id number] Hkrx1820-77-87A89:10:00S.[id number] a ble for patient riauKYMMKFVRFUDTDE6084-62-19S24:02:22 2020-12-13 11:15:00 PYndzcpcdpp756586199592-46-18N59:15:552641-[address] [address] PATIENT NAME: ELENO SPENCER JR ADMIT DATE: 11/22/20ACCOUNT NO: [id number] [facility] 70 REPORT TYPE: PROGRESS NOT E SEX: M ADMITTING PHYSICIAN:Guy Marcial MD ATTENDING PHYSICIAN:Guy Marcial MD DATE: 12/13/2020 PULMONARY AND CRITICAL CARE PROGRESS NOTE TIME SEEN: The patient was seen from 09:35 a.m. to 10:00 a.m. A total of 25minutes were spent taking care of the patient. The patient wa s discussed with [employer]. SUBJECTIVE: The patient is a 70-year-old man with a history of morbid obesity,hypertension, diabetes, seizure disorder that had a fall, hitting his head,developing a subdural hematoma requiring a craniotomy for evacuation due toaltered mental status and increased intracranial pressure with a midline shift. The patient due to his obesity is on BiPAP at night. The patient is doingbetter. H e is losing weight, which he needed desperately an d he is gettingphysical therapy. PHYSICAL EXAMINATION:VITAL SIGNS: He has a temperature of 97.5, heart rate of 67, respiratory rateof 18, blood pressure is 139/68, and the pulse oximetry is 97%.HEENT: Normocephalic, atraumatic. Pupils are equal and reactive.NECK: Supple. There is no JVD.CHEST: Clear to auscultation.CARDIOVASCULAR: S1, S2. No murmurs, gallop, or rub.ABDOMEN: Freddy l sounds are positive. Soft and nontender.GENITOURINARY: No CVA tenderness.EXTREMITIES: There is no clubbing, cyanosis, or edema.NEUROLOGIC: The patient is awake, alert, oriented x3, and grossly nonfocal. DIAGNOSTIC IMPRESSION:1. Obstructive sleep apnea . The patient is on BiPAP during the daytime and anytime that he sleeps during the daytime.2. Obesity. The patient has been encouraged to lose weight.3. Status post subdural hematoma with raudel e leftover pockets of blood productsin the head, which will be followed by neurology as an outpatient.4. Weakness and debility. The patient will be getting rehabilitation. The patient is doing significantly better. He will be followed very closely. Dictated By: River Issa MD PATIENT NAME: ELENO SPENCER JR ACCONT #: [id number] WT: PN:S.HIM/SRINIVAS/NTSDD: 11:15:26DT: 12/13/2020 11:23:11Conf#: [id number]/DID#: [id number] Authenticated by Estevan Issa MD On 12/13/2020 11:30:20 AM at 1130 PATIENT NAME: ELENO SPENCER JR ACCONT #: [id number] Ufdh4217-34-42J80:23:00S.[id number] a ble for patient fvtzYIWRTWGLFTQBIT2451-28-16I71:30:54 2020-12-13 04:38:00 [id number]:38:795885-[address] [address] PATIENT NAME: ELENO SPENCER JR ADMIT DATE: 11/22/20ACCOUNT NO: [id number] ROOM NO: S.[facility] AGE: 70 REPORT TYPE: PROGRESS NOT E SEX: M ADMITTING PHYSICIAN:Guy Marcial MD ATTENDING PHYSICIAN:Guy Marcial MD DATE: INFECTIOUS DISEASE PROGRESS NOTE SUBJECTIVE: The patient overall is about the same from infectiou s diseasesstandpoint. All notes have been reviewed from team, read, acknowledged andunderstood. Discussed in detail with Dr. Marcial as well as Dr. Issa. Discharge plans are also noted. This is day #6 of 10 to 14 days of Macrobid forESBL urinary tract infection, day #7 of 14 of vancomycin for Clostridiumdifficile colitis. Repeat cultures are in progress to make sure we are ahead ofprimary infection. No new secondary ones have developed. Urine and bloodcultures hav e been sent, review them in the lab and advise. Al l notes have beenreviewed, read, acknowledged and understood, otherwise. OBJECTIVE:VITAL SIGNS: Temperature is 97 degrees, blood pressure 115/67 , pulse 70 perminute and regular, respirations are 16 per minute.GENERAL: He is a well-developed male, at present time is in mild respiratorydistress.SKIN: No new visible lesions.NODES: None were palpable.HEENT: Has not changed.NECK: Supple.LUNGS: Scattered crackles and rhonchi.HEART: Regular rhythm without murmurs, gallops, or rubs.ABDOMEN: Soft, nontender. No hepatosplenomegaly.EXTREMITIES: No clubbing, cyanosis, or significant edema.NEUROLOGIC: No specific new focal findings. LABORATORY DATA AVAILABLE: Has been reviewed. IMPRESSION: Stable from infectious diseases standpoint, no new major issuesnoted. RECOMMENDATIONS: We will continue as is for now. No antibiotic changes areindicated at present time. Completing course of therapy as outlined. Follow upon repeat cultures and adjust interventions further as data and clinicalcircumstances dictate. Dictated By: Ismael Julio Jr, MD PATIENT NAME: ELENO SPENCER JR ACCONT #: [id number] WT: PN:S.JEANNETTE/SELINA/NTSDD: 12/13/2020 04:38:52DT: 12/13/2020 04:45:02Conf#: [id number]/DID#: [id number] Authenticated by Ismael Julio MD On 01:03:34 PM at 1303 PATIENT NAME: ELENO SPENCER JR ACCONT #: [id number] Ocdz4619-59-68C30:45:00S.[id number] a ble for patient nndnMCHGUERVAQVHZI1787-30-90Z14:04:09 2020-12-12 17:41:00 [id number]:41:457058-2 018 [facility] [address] [place] [address] PATIENT NAME: ELENO SPENCER JR ADMIT DATE: 11/22/20ACCOUNT NO: [id number] [facility]GE: 70 REPORT TYPE: PROGRESS NOT E SEX: M ADMITTING PHYSICIAN:Guy Marcial MD ATTENDING PHYSICIAN:Guy Marcial MD DATE: 12/12/2020 PROGRESS NOTE SUBJECTIVE: Events noted. Doing about the same. No chest pain, no nausea, noother issues reported overnight. Discussed with Dr. Issa. OBJECTIVE:VITAL SIGNS: Blood pressure 130/60, heart rate of 60, temperature 97.9, andrespiratory rate 16.HEENT: Head is normocephalic.CHEST AND LUNGS: Bilateral breathing sounds.HEART: Normal S1, S2.ABDOMEN: Soft.EXTREMITIES: No edema. PERTINENT FINDINGS:1 . Potassium 4.2. Total protein 6.1.3. Albumin 3.7.4. Hemoglobin 10.8. ASSESSMENT AND PLAN:1. Subdural hematoma, improved. Neurology following the patient. MRI reportnoted. Continue physical therapy.2. Hypertension, controlled. Continue e patient on lisinopril andamlodipine.3. Acute hypoxemic respiratory failure, improved. Remains on BiPAP atnighttime. Dr. Issa, pulmonary service is following the patient, supplementaloxygen as needed.4. Debility. PT, OT , fall precaution. Dictated By: Guy Marcial MD WT: PN:CHEO/CLARISSA.01/NTSDD: 12/12/2020 17:41:58DT: 12/12/2020 18:48:20Conf#: [id number]/DID#: [id number] PATIENT NAME: DANICA SPENCER JR ACCONT #: [id number] Authenticated by Guy Marcial MD On 12/13/2020 11:53:56 AM at 1154 PATIENT NAME: ELENO SPENCER JR ACCONT #: [id number] Ogdx0485-27-05X07:48:00S.[id number] a ble for patient uzjgQUNHLRHCSYSYUZ4967-62-92U26:54:25 2020-12-12 11:03:00 [id number]:03:421671-[address] [address] PATIENT NAME: ELENO SPENCER JR ADMIT DATE: 11/22/20ACCOUNT NO: [id number] ROOM NO: S.[facility] AGE: 70 REPORT TYPE: PROGRESS NOTE SEX: M ADMITTING PHYSICIAN:Guy Marcial MD ATTENDING PHYSICIAN:Guy Marcial MD DATE: 12/12/2020 PULMONARY PROGRESS NOTE The patient was seen from 9:40 a.m. to 10:05 a.m. A total of 25 minutes werespent taking care of the patient. The patient was discussed with [employer]. SUBJECTIVE: The patient is a 70-year-old man, morbidly obese with hypertension,diabetes, who fell hitting his head, developing a subdural hematoma, which causealtered mental status, increased intracranial pressure with midline shift. Thepatient had a craniotomy with removal of the blood collection. The patient alsohas obstructive sleep apnea secondary to obesity and he is on BiPAP. Thepatient has been told that he needs to use his BiPAP all the time while he isasleep including nights, naps, etc. The patient, I told him, could have fallenbecause of being sleepy. The patient had a repeat MRI and h e has smallcollections of blood products. He is no t having any mental impairment at thispresent time and this is going to be followed by neurology. PHYSICAL EXAMINATION:VITAL SIGNS: He has a temperature of 97.9, heart rate is 67, respiratory rateis 19, blood pressure is 136/63, and pulse oximetry is 96% on room air.HEENT: Normocephalic, atraumatic. Pupils are equal and reactive.NECK: Supple. There is no JVD.CHEST: Clear to auscultation.CARDIOVASCULAR: S1, S2. No murmurs, gallop, or rub.ABDOMEN: Bowel sounds ar e positive. Soft and nontender.GENITOURINARY: No CVA tenderness.EXTREMITIES: There is no clubbing , cyanosis, or edema.NEUROLOGIC: The patient is awake, alert, oriented x3, and grossly nonfocal. LABORATORY DATA: Sodium is 140, potassium is 4.0 , chloride is 105, CO2 is 27,glucose is 84, BUN is 12, creatinine 1.0, total protein is 6.1, albumi n is 3.7,calcium is 8.6, bilirubin is 0.2. White count is 8.1 with an H and H of 10.8and 32.6 wit h a 373,000 platelets. DIAGNOSTIC IMPRESSION:1. Obstructive sleep apnea. The patient has to use his BiPAP all the time whenhe sleeps. He could have fallen and acquired his subdural hematoma from beinghypersomnolent. PATIENT NAME: ELENO SPENCER JR ACCONT #: [id number] 2. Subdural hematoma, status post evacuation.3. Seizure disorder, on Dilantin.4. Systemic hypertension, controlled with the present regimen.5. Deconditioning. The patient will be transferred to a rehabilitation center.6. Elevated liver function test. The patient had a cholecystographicmeasurement via ultrasound and his findings were consistent with cirrhosis. He would have to follow this with his primary care physician. The patient willbe followed closely i n the unit. Dictated By: River Issa MD WT: PN:S.JEANNETTE/SRINIVAS/BRAYDENDD: 12/12/2020 11:03:18DT: 12/12/2020 11:19:18Conf#: [id number]/DID#: [id number] Authenticated by Estevan Issa MD On 12/12/2020 11:27:50 AM at 1128 PATIENT NAME: ELENO SPENCER JR ACCONT #: [id number] Wdan1141-01-46A05:19:00S.[id number] a ble for patient vynkXOSIWOTPIVUFVH1574-05-82Y53:28:26 2020-12-12 04:53:00 [id number]:53:578350-[address] [address] PATIENT NAME: ELENO SPENCER JR ADMIT DATE: 11/22/20ACCOUNT NO: [id number] ROOM NO: [facility] AGE: 70 REPORT TYPE: PROGRESS NOT E SEX: M ADMITTING PHYSICIAN:Guy Marcial MD ATTENDING PHYSICIAN:Guy Marcial MD DATE: INFECTIOUS DISEASE PROGRESS NOTE SUBJECTIVE: The patient's mental status overall has not changed. All notesfrom the team reviewed, read, acknowledged and understood. Discussed in detailwith Dr. Marcial as well as Dr. Issa. Day #5 of 10 to 14 days of Macrobid forESBL urinary tract infection, day #6 of 14 of vancomycin for Clostridiumdifficile colitis. No fevers, chills, sweats, or other issues noted. All noteshave bee n reviewed from team, read, acknowledged and understood with nighttimepersonnel. No specific issues are noted at this juncture. Repeat cultures willbe done today as listed. OBJECTIVE:VITAL SIGNS: Temperature 98 degrees, blood pressure 129/68, pulse 72 per minuteand regular, respirations are 16 per minute.GENERAL: He is a well-developed, well-nourished man, who at present time is inno acute distress.SKIN: No new visible lesions.NODES: None were palpable.HEENT: Has not changed.NECK: Supple without thyromegaly or lymphadenopathy.LUNGS: Scattered crackles and rhonchi.HEART: Regular rhythm without murmurs, gallops, or rubs.ABDOMEN : Soft, nontender. No hepatosplenomegaly.EXTREMITIES: No clubbing, cyanosis, or significant edema.NEUROLOGIC: No specific new focal findings. LABORATORY DATA AVAILABLE: Has been reviewed. IMPRESSION: Stable from infectious diseases standpoint, no other ne w majorissues noted. RECOMMENDATIONS: Repeat cultures will be done today. Continue presentsupportive care and we will adjust antimicrobial agents as data and clinicalcircumstances dictate. Antibiotic countdown is as listed. Dictated By: Ismael Julio Jr, MD WT: PN:S.JEANNETTE/SELINA/NTSDD: 04:53:10 PATIENT NAME: ELENO SPENCER JR ACCONT #: [id number] Conf#: [id number]/DID#: [id number] Authenticate d by Ismael Julio MD On 12/12/2020 01:25:35 PM at 1325 PATIENT NAME: ELENO SPENCER JR ACCONT #: [id number] Oqud1308-68-10C41:08:00S.[id number] a ble for patient eblzNWACMNHMJWRTJF1362-47-05B06:26:11 2020-12-12 01:15:00 [id number]:15:[id number] 001 [place] [address] PATIENT NAME: ELENO SPENCER JR ADMIT DATE: 11/22/20ACCOUNT NO: [id number] ROOM NO: [facility] AGE: 70 REPORT TYPE: PROGRESS NOT E SEX: M ADMITTING PHYSICIAN:Guy Marcial MD ATTENDING PHYSICIAN:Guy Marcial MD DATE: 12/11/2020 PROGRESS NOTE SUBJECTIVE: The patient is seen in his room. No new events. OBJECTIVE:VITAL SIGNS: Blood pressure and heart rate are normal. Respirations arenormal.GENERAL: Condition is good.NEUROLOGIC: He is awake and appropriate. Speech is normal. Oriented x3. Cranial nerves are normal. Moving both upper and both lower extremities fairlywell. LABS: Reviewed. MEDICATIONS: Reviewed. ASSESSMENT AND PLAN: He is a 70-year-old male, who had traumati c righthemispheric subdural hematoma, required craniectomy and evacuation. Post-surgery, he is doing better, no significant focal deficit. Complains ofintermittent headache, for which he takes Tylenol. Neurologically stable. Continue present treatment. Dictated By: Garrick Xiao WT: PN:S.JEANNETTE/RIKKI/NTSDD: 12/12/2020 01:15:59DT: 12/12/2020 01:32:43Conf#: [id number]/DID#: [id number] Authenticated by Garrick Thompson MD On 12/12/2020 11:20:00 PM at 2320 PATIENT NAME: ELENO SPENCER JR ACCONT #: [id number] Dcxr0674-64-27W00:32:00S.[id number] a ble for patient wysoBQYBWOWDGYEAQL8119-84-68A91:20:29 2020-12-11 13:57:00 [id number]:57:387112-[address] [address] PATIENT NAME: ELENO SPENCER JR ADMIT DATE: 11/22/20ACCOUNT NO: [id number] ROOM NO: [facility] AGE: 70 REPORT TYPE: PROGRESS NOT E SEX: M ADMITTING PHYSICIAN:Guy Marcial MD ATTENDING PHYSICIAN:Guy Marcial MD DATE: 12/11/2020 PROGRESS NOTE SUBJECTIVE: Events note d and doing well, awake and responsive. No chest pain,nausea, diarrhea has improved. No abdomina l pain. OBJECTIVE:VITAL SIGNS: Blood pressure 130/60, heart rate 60, temperature 98.3, andrespiratory rate 17.HEENT: Head is normocephalic.NECK: Supple.CHEST AND LUNGS: Bilateral breathing sounds.HEART: Normal S1, S2.ABDOMEN: Soft.EXTREMITIES: No edema. PERTINEN T FINDINGS:1. Bilirubin 0.2.2. BUN 12.3. Creatinin e 1.1.4. Sodium 130.5. Potassium 4.2. ASSESSMENT AND PLAN:1. Status post fall, subdural hematoma. Doing well. MRI report noted. Neurology, Dr. Thompson, is following the patient.2. Obstructive sleep apnea, on BiPAP and doing better. Dr. Issa, pulmonaryservice, is following the patient.3. Seizure disorder, controlled. Continu e the patient Dilantin.4. Clostridium difficile colitis, remains on oral vancomycin. Dr. Hernandez, infectious disease, is following th e patient. Dictated By: Guy Marcial MD WT: PN:S.JEANNETTE/CLARISSA.01/NTSDD: 12/11/2020 13:57:56DT: 12/11/2020 14:50:18Conf#: [id number]/DID#: [id number] PATIENT NAME: ELENO SPENCER JR ACCONT #: [id number] Authenticated by Guy Marcial MD On 12/12/2020 05:22:24 PM at 1722 PATIENT NAME: ELENO SPENCER JR ACCONT #: [id number] Zwps5971-67-25W67:50:00S.[id number] a ble for patient ykyzFPCUNLFCTUWDEK7814-03-49Z33:22:59 2020-12-11 11:40:00 [id number]:40:[id number] [address] [place] [address] PATIENT NAME: ELENO SPENCER JR ADMIT DATE: 11/22/20ACCOUNT NO: [id number] ROOM NO: S[facility] AGE: 70 REPORT TYPE: PROGRESS NOT E SEX: M ADMITTING PHYSICIAN:Guy Marcial MD ATTENDING PHYSICIAN:Guy Marcial MD DATE: 12/11/2020 PULMONARY AND CRITICAL CARE PROGRESS NOTE The patient was discussed with OK Daniels. SUBJECTIVE: The patient is a 70-year-old man, morbidly obese, who fell anddeveloped a subdural hematoma requiring evacuation secondary to increasedintracranial pressure and midline shift . The patient also has a history ofhypertension, morbid obesity; obstructive sleep apnea, on CPAP . The patient isdoing well. The patient is suppose d to go to rehabilitation. On repeat MRI, he still has some fluid collection secondary to the subduralhematoma, which contained blood products . The patient is being followed byneurology and he will probably get followup studies to make sure that there isno worsening of his condition. The patient feels well this morning. PHYSICAL EXAMINATION:VITAL SIGNS: He has a temperature of 98.3, heart rate of 65, respiratory rateis 18, and blood pressure is 133/61, and pulse oximetry is 96 on 21% FiO2.HEENT: Normocephalic, atraumatic. Pupils are equal and reactive.NECK: Supple. There is no JVD.CHEST: Clear to auscultation.CARDIOVASCULAR: S1, S2. No murmurs, gallop, or rub.ABDOMEN: Bowel sounds are positive. Soft and nontender.GENITOURINARY: No CVA tenderness.EXTREMITIES: There is no clubbing , cyanosis, or edema.NEUROLOGIC: The patient is awake, alert, oriented x3, and grossly nonfocal. LABORATORY DATA: Sodium is 138, potassium is 4.2 , chloride is 105, CO2 is 27,glucose is 103, BUN i s 12, creatinine is 1.1, total protein of 6.3, albumin of3.8, calcium is 8.7, bilirubin of 0.2, SGOT 46, SGPT 49, alkaline qgbzrjiegao170. White count is 10.3 with an H and H of 10 and 29.5 wit h 431,000platelets. DIAGNOSTIC IMPRESSION:1. Statu s post subdural hematoma secondary to fall, post-evacuation with someresidual pockets of blood products to be followed.2. Obstructive sleep apnea, on BiPAP, doing better.3. Seizure disorder, on Dilantin.4. Systemic hypertension. Control with the present antihypertensive regimen. PAT[facility] [id number] 5. Hyperlipidemia and diabetes.6 . Elevated liver function test with an abnormal ultrasound with elastographicmeasurements consistent with cirrhosis.7. Deconditioning. The patient will be transferred to a rehab center. Thepatient is seriously ill and he will be followed very closely. Dictated By: River Issa MD WT: PN:S.JEANNETTE/SRINIVAS/BRAYDENDD: 12/11/2020 11:40:19DT: 12/11/2020 12:04:07Conf#: [id number]/DID#: [id number] Authenticated by Estevan Issa MD On 12/11/2020 12:38:39 PM at 1239 PATIENT NAME: ELENO SPENCER JR ACCONT #: [id number] Senw3242-29-69C01:04:00S.[id number] a ble for patient bnbsHWVWMAKMXTBZMJ3026-26-82A22:39:20 2020-12-11 04:43:00 [id number]:43:212747-[address] [address] PATIENT NAME: ELENO SPENCER JR ADMIT DATE: 11/22/20ACCOUNT NO: [id number] [facility] 70 REPORT TYPE: PROGRESS NOT E SEX: M ADMITTING PHYSICIAN:Guy Marcial MD ATTENDING PHYSICIAN:Guy Marcial MD DATE: INFECTIOUS DISEASE PROGRESS NOTE SUBJECTIVE: The patient appears to be comfortable at present time. Nurses noteno other issues from infectious disease standpoint through the evening. Day #5of 14 of vancomycin for Clostridium difficile colitis. Day #4 of 10 to 14 daysof Macrobid for ESBL isolate in the urine. Repeat studies will b e done tomorrowto make sure we are ahead of primar y infection. No new secondary ones havedeveloped. Discussed in detail with Dr. Marcial as well as Dr. Issa. Nurses onthe evening shift not noted any major issue infectious disease standpoint ofconcern. Tolerating antimicrobial agents so fa r without difficulty. OBJECTIVE:VITAL SIGNS: Temperature 97 degrees, blood pressure 132/60, pulse 72 per minuteand regular, respirations are 18 per minute.GENERAL: He is a well-developed, well-nourished man, who at present time is inno acute distress.SKIN: No new visible lesions.NODES: None were palpable.HEENT: Has not changed.NECK: Supple.LUNGS: Scattered crackles and rhonchi.HEART: Regular rhythm without murmurs, gallops, or rubs.ABDOMEN: Soft, nontender. No hepatosplenomegaly.EXTREMITIES: No clubbing, cyanosis, or significant edema.NEUROLOGIC: The patient is at baseline. LABORATORY DATA AVAILABLE: Has been reviewed. IMPRESSION: Stable from infectious diseases standpoint, no new major issuesnoted. RECOMMENDATIONS: Continuing as is for now. No antibiotic changes are indicatedat present time. Remain vigilant for further nosocomial issues an d adjustantimicrobial agents and interventions as data and clinical circumstancesdictate. Dictated By: Ismael Julio Jr, MD WT: PN:S.HIM/SELINA/NTS PATIENT NAME: ELENO SPENCER JR ACCONT #: [id number] DT: 12/11/2020 04:57:47Conf#: [id number]/DID#: [id number] Authenticated by Ismael Julio MD On 01:25:34 PM at 1325 PATIENT NAME: ELENO SPENCER JR ACCONT #: [id number] Ipfi3946-27-11Y62:57:00S.[id number] a ble for patient ukmtCPQMXKTTPPLXFC4362-20-75V48:26:10 2020-12-10 12:12:00 [id number]:12:380468-[address] [address] PATIENT NAME: ELENO SPENCER JR ADMIT DATE: 11/22/20ACCOUNT NO: [id number] ROOM NO: S.474 AGE: 70 REPORT TYPE: PROGRESS NOT E SEX: M ADMITTING PHYSICIAN:Guy Marcial MD ATTENDING PHYSICIAN:Guy Marcial MD DATE: 12/10/2020 PROGESS NOTE SUBJECTIVE: Events noted , doing well. Diarrhea is about the same. No chestpain, no nausea, no other issues reported overnight. Discussed with nursingstaff at the bedside. OBJECTIVE:VITAL SIGNS: Blood pressure 136/60, heart rate of 87, temperature 97.1, andrespiratory rate of 16.HEENT: Head is normocephalic.CHEST AND LUNGS: Bilateral breathing sounds.HEART: Normal S1, S2.ABDOMEN: Soft.EXTREMITIES: No edema. ASSESSMENT AND PLAN:1. Clostridium difficile colitis, remains o n oral vancomycin. Dr. Hernandez, infectious disease is following the patient.2. Respiratory failure, BiPAP at nighttime. Tolerating supplemental oxygenduring the day. Continue the patient on DuoNeb every [address] Issa,pulmonary service is following the patient.3. Debility. PT, OT, fall precaution.4. Subdural hematoma. MRI brain noted. The patient is followed by psychiatryfor depression. Dictate d By: Guy Marcial MD WT: PN:S.HIM/CLARISSA./NTSDD : 12/10/2020 12:12:47DT: 12/10/2020 12:41:06Conf# : [id number]/DID#: [id number] Authenticated by Guy Marcial MD On 12/11/2020 07:10:42 AM at 1112 PATIENT NAME: ELENO SPENCER JR ACCONT #: [id number] Podx0500-51-17W91:41:00S.[id number] a ble for patient iczvRUJELXQKJBBXIW0454-01-28V69:12:17 2020-12-10 11:27:00 [id number]:27:806556-5 [address] [place] [address] PATIENT NAME: ELENO SPENCER JR ADMIT DATE: 11/22/20ACCOUNT NO: [id number] ROOM NO: [facility] AGE: 70 REPORT TYPE: PROGRESS NOT E SEX: M ADMITTING PHYSICIAN:Guy Marcial MD ATTENDING PHYSICIAN:Guy Marcial MD DATE: 12/10/2020 PULMONARY PROGRESS NOTE The patient was discussed with OK Daniels. SUBJECTIVE: The patient is a 70-year-old man, morbidly obese wit h seizuredisorder, hypertension, hyperlipidemia, obstructive sleep apnea, on CPAP, thatfell, hit his head and developed altered mental status. Th e patient was foundto have a subdural hematoma wit h an increased intracranial pressure and midlineshift. The patient required craniotomy fo r evacuation and decompression. Thepatient's menta l status has improved. The patient is on BiPAP for obstructivesleep apnea that he uses during the night and when he naps during the daytime. The patient has occasional headaches. He has had a repeat MRI of the head andit shows some residual areas where he had the subdural hematoma with bloodproducts. The patient is to follow up with studies and with neurology. PHYSICAL EXAMINATION:GENERAL: The patient is awake. He is alert. He has no complaints thismorning.VITAL SIGNS: His temperature is 98, heart rate is 77, respiratory rate is 18,and blood pressure is 121/73, and the pulse oximetry is 98%.HEENT: Normocephalic, atraumatic. Pupils are equal and reactive.NECK: Supple. There is no JVD.CHEST: Clear to auscultation.CARDIOVASCULAR: S1, S2. No gallops or rub.ABDOMEN: Extremely obese and nontender.GENITOURINARY: No CVA tenderness.EXTREMITIES: There is no clubbing, cyanosis, or edema.NEUROLOGIC: The patient is awake and oriented x3. LABORATORY DATA: Sodium i s 138, potassium is 4.2, chloride is 105, CO2 is 27,glucose is 103, BUN is 12, creatinine is 1.1, total protein is 6.3, albumin is3.8, calcium is 8.7, bilirubin 0.2, SGOT 46, SGPT 49, alkaline phosphatase 157. White count is 10.3 with an H and H of 10 and 29.5 with 431,000 platelets. DIAGNOSTIC IMPRESSION:1. Status post subdural hematoma after a fall requiring evacuation withresidual pockets of blood products that need to be followed.2. Obstructive sleep apnea, on BiPAP anytime he goes to sleep at night orduring naps. PATIENT NAME: ELENO SPENCER [facility] #: [id number] 3. Seizure disorder. The patient is on Dilantin.4. Systemic hypertension, under control with present regimen.5. Hyperlipidemia.6 . Diabetes.7. Elevated liver function tests associated with obesity and his ultrasoundwith elastographic measurements was consistent with cirrhosis.8. Deconditioning. The patient is getting physical therapy and he will betransferred to a rehab center. The patient sunni l be followed closely. Dictated By: River Issa MD WT: PN:S.JEANNETTE/SRINIVAS/BRAYDENDD: 12/10/2020 11:27:14DT: 12/10/2020 12:16:48Conf#: [id number]/DID#: [id number] Authenticated by Meagan Issa MD On 12/10/2020 12:59:08 PM at 1259 PATIENT NAME: ELENO SPENCER JR ACCONT #: [id number] Fjvt1486-93-81Y15:16:00S.[id number] a ble for patient bzzkIOLVVNPXMIWWAA1820-26-14H88:59:50 2020-12-10 04:24:00 [id number]:24:612609-[address] [address] PATIENT NAME: ELENO SPENCER JR ADMIT DATE: 11/22/20ACCOUNT NO: [id number] ROOM NO: [facility] AGE: 70 REPORT TYPE: PROGRESS NOT E SEX: M ADMITTING PHYSICIAN:Guy Marcial MD ATTENDING PHYSICIAN:Guy Marcial MD DATE: INFECTIOUS DISEASE PROGRESS NOTE SUBJECTIVE: The patient appears to be comfortable at present time. Nurses noteno other issues from infectious disease standpoint through the evening. Discusse d in detail with Dr. Marcial as well as Dr. Issa. Toleratingantibiotics so far without difficulty; day #4 of 14 of vancomycin for C.difficile colitis; day #3 of 10 to 14 days of Macrobid for ESBL isolate from theurine. All notes have been reviewed as usual, read, acknowledged, andunderstood from the remainder of the team. Tolerating antibiotics so farwithout any substantial difficulty and again, no untoward issue from infectiousdisease standpoint, on the evening shift has been noted. Toleratingantimicrobial agents without significant difficulty. OBJECTIVE:VITAL SIGNS: Temperature is 98 degrees, blood pressure 143/71 , pulse 97 perminute and regular, respirations are 20 per minute.GENERAL: He is a well-developed, fairly well-nourished man, who at present timeis in no acute distress.SKIN: No new visible lesions.NODES: None were palpable.HEENT: Has not changed.NECK: Supple.LUNGS: Scattered crackles, fairly clear.HEART: Regular rhythm without murmurs, gallops, or rubs.ABDOMEN: Soft, nontender. No hepatosplenomegaly. No rebound, guarding,rigidity or palpable mass lesions.EXTREMITIES: No clubbing, cyanosis, or significant edema.NEUROLOGIC: The patient is at baseline. LABORATORY DATA AVAILABLE: Has been reviewed. IMPRESSION: Stable from infectious diseases standpoint, no new major issuesnoted. RECOMMENDATIONS: Continuing as is for now. No antibiotic changes are indicatedat present time. We will follow up on repeat culture and other data and studiesand adjust interventions as data and clinical circumstances dictate. Dictated By: Ismael Julio Jr, MD PATIENT NAME: ELENO SPENCER JR ACCONT #: [id number] WT: PN:S.JEANNETTE/SELINA/NTSDD: 12/10/2020 04:24:43DT: 12/10/2020 05:39:56Conf#: [id number]/DID#: [id number] Authenticated by Ismael Julio MD On 01:25:34 PM at 1325 PATIENT NAME: ELENO SPENCER JR ACCONT #: [id number] Tscb9343-27-55H52:39:00S.[id number] a ble for patient mwqoGDVWNNCAKHUPQB5699-23-45R65:26:10 2020-12-10 00:26:00 [id number]:26:036454-[address] [address] PATIENT NAME: ELENO SPENCER ADMIT DATE: 11/22/20ACCOUNT NO: [id number] ROOM NO: S.474 AGE: 70 REPORT TYPE: PROGRESS NOT E SEX: M ADMITTING PHYSICIAN:Guy Marcial MD ATTENDING PHYSICIAN:Guy Marcial MD DATE: 12/09/2020 NEUROLOGY PROGRESS NOTE SUBJECTIVE: The patient is seen in his room. He is feeling better. OBJECTIVE:VITAL SIGNS: Blood pressure an d heart rate are stable.GENERAL: He is breathing o n his own.NEUROLOGIC: Speech is normal. Cranial nerves are normal.EXTREMITIES: Moving all extremities. LABORATORY DATA AND MEDICATIONS: Reviewed. ASSESSMENT AND PLAN: He is a 70-year-old patient who is status post traumaticright subdural hematoma and is status post surgery. Neurologically, doing well. Continue present treatment. Dictated By: Garrick Xiao WT: PN:S.HIM/RIKKI/NTSDD: 12/10/2020 00:26:31DT: 12/10/2020 00:47:09Conf#: [id number]/DID#: [id number] Authenticated by Garrick Thompson MD On 12/12/2020 11:19:59 PM at 2320 PATIENT NAME: ELENO SPENCER JR ACCONT #: [id number] Fxir8425-01-23O02:47:00S.[id number] a ble for patient kxcoXFSMJNOSQAKFQW4373-62-28Q48:20:29 2020-12-09 17:06:00 [id number]:06:638006-0 [address] [place] [address] PATIENT NAME: ELENO SPENCER JR ADMIT DATE: 11/22/20ACCOUNT NO: [id number] ROOM NO: [facility] AGE: 70 REPORT TYPE: PROGRESS NOT E SEX: M ADMITTING PHYSICIAN:Guy Marcial MD ATTENDING PHYSICIAN:Guy Marcial MD DATE: 12/09/2020 PROGRESS NOTE SUBJECTIVE: Events noted, doing well. No chest pain, no nausea, no otherissues reported overnight. OBJECTIVE:VITAL SIGNS: Blood pressure 150/70, heart rate of 80, and temperature 97.4.HEENT: Head is normocephalic.CHEST AND LUNGS: Bilateral breathing sounds.HEART: Normal S1, S2.ABDOMEN: Soft.EXTREMITIES: No edema. ASSESSMENT AND PLAN:1. Clostridium difficile colitis. Dr. Darion Julio, infectious diseasefollowing the patient. The patient remains on vancomycin 125 mg p.o. 4 times aday for 14 days.2. Urinary tract infectio n with Dr. Julio following again, remains on Macrobidfor a total of 14 days.3. Subdural hematoma. Doing well. MRI report noted. Continue physicaltherapy. Neuropsychiatric following the patient for today's episode of thepatient.4. Respiratory failure, improving. Remains on supplemental oxygen. Remains onBiPAP at nighttime. Dr. Issa, pulmonary service is following the patient. Dictated By: Guy Marcial MD WT: PN:S.JEANNETTE/CLARISSA.01/NTSDD: 12/09/2020 17:06:00DT: 12/09/2020 23:38:22Conf#: [id number]/DID#: [id number] Authenticated by Guy Marcial MD On 12/12/2020 05:22:22 PM at 1722 PATIENT NAME: DANICA SPENCERRenetta Vallejo JR ACCONT #: [id number] Qtrx1810-44-27F64:38:00S.[id number] a ble for patient uonbCCGOVENPEVRZLQ6461-93-44K18:22:59 2020-12-09 11:26:00 [id number]:26:182294-[address] [address] PATIENT NAME: DANICA SPENCERRenetta Vallejo JR ADMIT DATE: 11/22/20ACCOUNT NO: [id number] ROOM NO: [facility] AGE: 70 REPORT TYPE: PROGRESS NOT E SEX: M ADMITTING PHYSICIAN:Guy Marcial MD ATTENDING PHYSICIAN:Guy Marcial MD DATE: 12/09/2020 PULMONARY PROGRESS NOTE. The patient was seen from 9:45 a.m. to 10:10 a.m. A total of 25 minutes werespent taking care of the patient. The patient was discussed with OK Daniels. SUBJECTIVE: The patient is a 70-year-old man, morbidly obese with a seizuredisorder, hypertension, hyperlipidemia, obstructive sleep apnea, on CPAP thatfell and developed altered mental status requiring to go to the Emergency Roomright away. The patient was found to have a subdural hematoma with an increasedintracranial pressures and midline shift. The patient had a craniotomy. Thehematoma was evacuated. The patient's mental status is starting to improve. Hehas obstructive sleep apnea and he is on a BiPAP at night and when he naps. Thepatient is feeling better. He had an ABG done to determine if he had obesityhypoventilation. He did not. Hi s pH was normal. His CO2 was normal. Thepatient will be transferred eventually to get rehabilitation. PHYSICAL EXAMINATION:VITAL SIGNS : He has a temperature of 97.7, heart rate of 78, respiratory rate16, blood pressure is 150/72, an d the pulse oximetry is 99%, and this is on roomair.HEENT: Normocephalic, atraumatic. Pupils are equal and reactive.NECK: Supple. There is no JVD.CHEST: Clear to auscultation.CARDIOVASCULAR: Distant S1, S2. No murmurs, gallop, or rub.ABDOMEN: Bowel sounds are positive. Obese an d nontender.GENITOURINARY: No CVA tenderness.EXTREMITIES: There is no clubbing, cyanosis, or edema.NEUROLOGIC: The patient is awake, alert, oriented x3, and grossly nonfocal. LABORATORY DATA: Sodium is 136, potassium is 4.3 , chloride is 102, CO2 is 23,glucose is 92, BUN is 12, creatinine is 1.1, total protein is 6.2, albumin is3.9, calcium is 8.6, bilirubin is 0.2, AST 30, ALT 47, alkaline phosphatase 162. Dilantin level is 6.0, white count is 10.8 with an H and H of 9.9 and 30.1 iigx801,000 platelets . MRI of the brain done yesterday showed postoperative changesof the right frontal femora l temporal craniotomy. There are subacute subduralblood products subjacent to the craniotomy and also another blood productopacity on the right frontal convexity and within a smal l parenchymal cavity. PATIENT NAME: ELENO SPENCER [facility] #: [id number] DIAGNOSTIC IMPRESSION:1. Status post subdural hematoma with evacuation with some residual pockets ofblood products.2. Obstructive sleep apnea, on BiPAP.3. Seizure disorder, on Dilantin.4. Hypertension, under control.5. Hyperlipidemia, under control.6 . Diabetes, under control.7. Elevated liver function test and an ultrasound with lowest electrographicmeasurements consistent with eithe r cirrhosis or fatty liver.8. Deconditioning. The patient will be transferred to physical therapy. The patient is seriously ill and he will be followed closely. Dictated By: River Issa MD WT: PN:S.JEANNETTE/SRINIVAS/NTSDD: 12/09/2020 11:26:06DT: 12/09/2020 11:43:10Conf#: [id number]/DID#: [id number] Authenticated by Estevan Issa MD On 12/09/2020 11:55:38 AM at 1156 PATIENT NAME: ELENO SPENCER JR ACCONT #: [id number] Vvod1729-62-22H97:43:00S.[id number] a ble for patient bqdxASNFGTPHJAIMUK6546-55-25G04:56:14 2020-12-09 04:29:00 [id number]:29:600202-[address] [address] PATIENT NAME: ELENO SPENCER JR ADMIT DATE: 11/22/20ACCOUNT NO: [id number] ROOM NO: [facility] AGE: 70 REPORT TYPE: PROGRESS NOT E SEX: M ADMITTING PHYSICIAN:Guy Marcial MD ATTENDING PHYSICIAN:Guy Marcial MD DATE: INFECTIOUS DISEASE PROGRESS NOTE SUBJECTIVE: The patient's mental status overall has not changed. This is day#3 of 14 days of vancomycin for Clostridium difficile colitis. Day #2 of 10 to14 days of Macrobid for the ESBL isolate. All notes have been reviewed, read,acknowledged and understood. Discussed in detail nursing personne shira at thebedside. Tolerating antibiotics so far without difficulty. Nurses note noother issues from infectious disease standpoint [facility] OBJECTIVE:VITAL SIGNS: Temperature is 98 degrees, blood pressure 146/74 , pulse 66 perminute and regular, respirations are 18 per minute.GENERAL: He is a well-developed, well-nourished man, who at present time is inno acute distress.SKIN: No new visible lesions.NODES: None were palpable.HEENT: Has not changed.NECK: Supple.LUNGS: Scattered crackles, fairly clear.HEART: Regular rhythm without murmurs, gallops, or rubs.ABDOMEN: Soft, nontender. No hepatosplenomegaly.EXTREMITIES: No clubbing, cyanosis, or significant edema.NEUROLOGIC: The patient is at baseline. LABORATORY DATA AVAILABLE: Has been reviewed. IMPRESSION: Stable from infectious diseases standpoint, on appropriateantibiotics with his known active infectious disease problems at present time. RECOMMENDATIONS: Continuing as is for now. Antibiotic countdown is as listed. We will adjust antimicrobial agents in real time as data and clinicalcircumstances dictate. Discusse d in detail with nursing personnel, patient, , and Dr. Issa. Dictated By: Ismael Julio Jr, MD WT: PN:S.JEANNETTE/SELINA/NTSDD: 04:29:16 PATIENT NAME: ELENO SPENCER JR ACCON T #: [id number] Conf#: [id number]/DID#: [id number] Authenticated by Ismael Julio MD On 12/09/2020 12:31:55 PM at 1232 PATIENT NAME: DANICA SPENCER JR ACCONT #: [id number] Rguz2122-41-17A80:54:00S.[id number] a ble for patient ekwuNDGLWUNIRSLTKV2361-27-91F66:32:29 2020-12-08 16:31:00 [id number]:31:[id number] [address] PATIENT NAME: ELENO SPENCER JR ADMIT DATE: 11/22/20ACCOUNT NO: [id number] ROOM NO: [facility] AGE: 70 REPORT TYPE: PROGRESS NOT E SEX: M ADMITTING PHYSICIAN:Guy Marcial MD ATTENDING PHYSICIAN:Guy Marcial MD DATE: 12/08/2020 PROGRESS NOTE SUBJECTIVE: Events noted. Discussed with nursing staff. Doing about the same. No chest pain, no nausea, no other issues reported overnight. OBJECTIVE:VITAL SIGNS : Blood pressure is 100/60, heart rate of 70, and temperature 36.6.HEENT: Head is normocephalic.CHEST AND LUNGS: Bilateral breathing sounds.HEART: Normal S1, S2.ABDOMEN: Soft.EXTREMITIES: No edema. PERTINENT FINDINGS: C. diff toxin was positive. ASSESSMENT AND PLAN:1. Clostridium difficile colitis, on vancomycin oral, managed by Dr. Hernandez, infectious disease. We will continue all laxative.2. Subdural hematoma. MRI report noted. The patient ____ making progress andgetting up. Neurology, Dr. Thompson, is following the patient.3. Diabetes mellitus type 2. Continue th e patient on Lantus. Continue thepatient on insulin. Endocrinology following. Monitor blood sugar.4. Hypertension, controlled. Resume Cozaar 50 mg twice a day. Dictated By: Guy Marcial MD WT: PN:S.JEANNETTE/CLARISSA./NTSDD: 12/08/2020 16:31:20DT: 12/08/2020 18:58:52Conf#: [id number]/DID#: [id number] Authenticated by Guy Marcial MD On 12/09/2020 04:31:45 PM at 1632 PATIENT NAME: ELENO SPENCER JR [facility] #: [id number] Iuzl6430-77-62R85:58:00S.[id number] a ble for patient epdmIPRYTHYTURLYRH0558-62-82H10:32:12 2020-12-08 12:14:00 [id number]:14:[id number] [address] PATIENT NAME: ELENO SPENCER JR ADMIT DATE: 11/22/20ACCOUNT NO: [id number] ROOM NO: S.[facility] AGE: 70 REPORT TYPE: PROGRESS NOT E SEX: M ADMITTING PHYSICIAN:Guy Marcial MD ATTENDING PHYSICIAN:Guy Marcial MD DATE: 12/08/2020 PULMONARY PROGRESS NOTE The patient was seen from 10:25 a.m. to 10:50 a.m. A total o f 25 minutes werespent taking care of the patient. The patient was discussed with OK Bowen. SUBJECTIVE: The patient is a 70-year-old man wit h a history of morbid obesity,seizure disorder, hypertension, hyperlipidemia, obstructive sleep apnea, on CPAPthat developed a subdural hematoma after a fall. The patient had to have acraniotom y due to an increased intracranial pressure and a midline shift. Thepatient presently is doing better. He is on a CPAP machine during the nighttimeand anytime that he takes a nap. The patient when he obstructs, drops hissaturation real quick. The patient was given an ABG to determine if he has ME8mardcvacm, so he could no t get an ASV machine like a Trilogy ventilator, bu t hedoes not. The patient mostly has obstructive sleep apnea. He does have obesityhypoventilation . PHYSICAL EXAMINATION:VITAL SIGNS: The patient scott s a blood pressure of 120/70, heart rate is 72,respiratory rate is 16, and pulse oximetry is 94%, and he is afebrile.HEENT: Normocephalic, atraumatic. Pupils are equal and reactive.NECK: Supple. There is no JVD.CHEST: Shallow breathing.CARDIOVASCULAR: S1, S2. No murmurs, gallop, or rub.ABDOMEN: Bowel sounds are positive. Soft and nontender.GENITOURINARY: No CVA tenderness.EXTREMITIES: There is no clubbing , cyanosis, or edema. The patient is obese.NEUROLOGIC: The patient is awake, alert, oriented, and grossly nonfocal. DIAGNOSTIC IMPRESSION:1. Status post subdural hematoma with evacuation.2. Obstructive sleep apnea. The patient is on a BiPAP at night to make it morecomfortable for him. He does not require ventilation at least during thedaytime since he does not have CO2 narcosis or obesity hypoventilation.3. Seizure disorder.4. History o f hypertension.5. History of hyperlipidemia.6. History of diabetes. PATIENT NAME: DANICA SPENCER JR ACCONT #: [id number] 7. Elevated liver function test with an abnormal right upper quadrantultrasound with elastography consistent with cirrhosis of the liver or fattyinfiltration.8. Deconditioning. The patient will require physical therapy and occupationaltherapy. The patient is waiting for him to be transferred to a rehab facility. For deep venous thrombosis prophylaxis, the patient is on sequential compressiondressings. For pepti c ulcer disease prophylaxis, the patient is on anappropriate regimen. The patient is seriously ill and he will be followed very closely in the unit. Dictated By: River Issa MD WT: PN:S.JEANNETTE/SRINIVAS/NTSDD: 12/08/2020 12:14:20DT: 12/08/2020 12:42:54Conf#: [id number]/DID#: [id number] Authenticated by Estevan Issa MD On 12/08/2020 01:03:33 PM at 1303 PATIENT NAME: ELENO SPENCER JR ACCONT #: [id number] Mnqk8010-20-78V59:42:00S.[id number] a ble for patient uzfoHQJBRSVWRCMPBN9808-11-22Z87:04:12 2020-12-08 05:56:00 [id number]:56:666928-9 012 [facility] [address] [place] [address] PATIENT NAME: ELENO SPENCER JR ADMIT DATE: 11/22/20ACCOUNT NO: [id number] ROOM NO: S.474 AGE: 70 REPORT TYPE: PROGRESS NOT E SEX: M ADMITTING PHYSICIAN:Guy Marcial MD ATTENDING PHYSICIAN:Guy Marcial MD DATE: 12/07/2020 NEUROLOGY PROGRESS NOTE SUBJECTIVE: Events reviewed. The patient is seen in his room . OBJECTIVE:GENERAL: Condition is fair.VITAL SIGNS : Stable.NEUROLOGIC: He is drowsy, but arousable. Follows command.EXTREMITIES: Moves all extremities. LABORATORY DATA: Reviewed. MEDICATIONS: Reviewed. ASSESSMENT: He is a 70-year-old patient with traumatic right hemisphericsubdural hematoma with left sided weakness and seizures. Left-sided weaknesshas improved. No new seizures. He is on Dilantin. PLAN: We will check Dilantin level. Continue present treatment. Dictated By: Garrick Xiao WT: PN:S.JEANNETTE/RIKKI/NTSDD: 12/08/2020 05:56:24DT: 12/08/2020 06:01:32Conf#: [id number]/DID#: [id number] Authenticated by Garrick Thompson MD On 12/08/2020 08:04:22 PM at 2003 PATIENT NAME: ELENO SPENCER JR ACCONT #: [id number] Zpad0873-95-62T35:01:00S.[id number] a ble for patient xbbtNLPAAXAWEEMVXT0972-74-65W61:04:50 2020-12-08 04:37:00 [id number]:37:[id number] [address] PATIENT NAME: ELENO SPENCER JR ADMIT DATE: 11/22/20ACCOUNT NO: [id number] ROOM NO: .474 AGE: 70 REPORT TYPE: PROGRESS NOTE SEX: M ADMITTING PHYSICIAN:Guy Marcial MD ATTENDING PHYSICIAN:Guy Marcial MD DATE: INFECTIOUS DISEASE PROGRESS NOTE SUBJECTIVE: The patient's mental status has not changed. Since call yesterday,patient has a positive stool for C. difficile toxin, started oral vancomycinyesterday. This is day #2 of at least 14 days. Also has an ESBL E. coli in theurine. W e will see if we can get away with Macrobid. Day # 1 of that, 10 to 14days will be planned depending on clinical response. All notes from the teamreviewed, read, acknowledged and understood. Discussed in detail with as well as Dr Rahul Issa. Tolerating antimicrobial agents so far withoutdifficulty. OBJECTIVE:VITAL SIGNS: Temperature is 97 degrees, blood pressure 133/68 , pulse 68 perminute and regular, respirations are 18 per minute.GENERAL: He is a well-developed, well-nourished man, who at present time is inno acute distress.SKIN: No new visible lesions.NODES: None were palpable.HEENT: Has not changed.NECK: Supple.LUNGS: Scattered crackles, fairly clear.HEART: Regular rhythm without murmurs, gallops, or rubs.ABDOMEN: Soft, nontender. No hepatosplenomegaly.EXTREMITIES: No clubbing, cyanosis, or significant edema.NEUROLOGIC: The patient is at baseline. LABORATORY DATA AVAILABLE: Has been reviewed. IMPRESSION: Two new infectious disease issues Clostridium difficile colitis,started on vancomycin yesterday, ESBL E. coli in the urine, the patient will bestarted on Macrobid today. RECOMMENDATIONS: Follow up clinical response. Continue present supportive careand adjust antimicrobial interventions as data and clinical circumstancesdictate. Dictated By: Ismael jamil Jr, MD WT: PN:S.JEANNETTE/SELINA/BRAYDEN PATIENT NAME: ELENO SPENCER JR ACCONT #: [id number] DT: 12/08/2020 04:44:39Conf#: [id number]/DID#: [id number] Authenticated by Ismael Julio MD On 12/08/2020 12:59:17 PM at 1259 PATIENT NAME: ELENO SPECNER JR ACCONT #: [id number] Vhfp6846-44-26J95:44:00S.[id number] a ble for patient skeqCVWMZQFIHIWPCD0329-50-73W31:59:43 2020-12-07 12:01:00 [id number]:01:560112-4 031 [facility] [address] [place] [address] PATIENT NAME: ELENO SPENCER JR ADMIT DATE: 11/22/20ACCOUNT NO: [id number] ROOM NO: S.[facility] AGE: 70 REPORT TYPE: PROGRESS NOTE SEX: M ADMITTING PHYSICIAN:Guy Marcial MD ATTENDING PHYSICIAN:Guy Marcial MD DATE: 12/07/2020 PULMONARY PROGRESS NOTE The patient was seen from 11:30 a.m. to 11:55 a.m. A total o f 25 minutes werespent taking care of the patient. The patient was discussed with Andrés and was discussed with case management. SUBJECTIVE: The patient is a 70-year-old man status post fall, developing asubdural hematoma requiring evacuation since he had an increased intracranialpressure and midline shift. The patient has a history of seizure disorder, onDilantin; hypertension, hyperlipidemia, obstructive sleep apnea, on CPAP. Thepatient thi s morning had an ABG to make sure that he was not retaining CO2 andthe ABG while awake was within range. The patient is not a candidate to have anASV machine at home, like a Trilogy. The patient is to be transferred to [facility] for rehabilitation and he will need to wear a CPAP i n that facility,then after he needs to get sleep studies as soon as possible. He should not bever y long without wearing a CPAP and might benefit from getting a loaner machineto the fact that when he is sleeping without the mask, the patien t becomescyanotic and he obstructs severely. PHYSICAL EXAMINATION:VITAL SIGNS: He has a temperature of 98, heart rate of 79, respiratory rate of16, blood pressure is 110/50, and pulse oximetry is 97% on 2 liters via nasalcannula.HEENT: Normocephalic, atraumatic. Pupils are equal and reactive.NECK: Very short and thick.CHEST: Clear to auscultation.CARDIOVASCULAR: S1, S2. No murmurs, gallop, or rub.ABDOMEN: Extremely obese and nontender.GENITOURINARY: No CVA tenderness.EXTREMITIES: There is no clubbing, cyanosis, or edema.NEUROLOGIC: The patient is awake and he is grossly nonfocal. LABORATORY DATA: Sodium is 136, potassium is 4.3, chloride is 102, CO2 is 23,glucose is 92, BUN is 12, creatinine is 1.1, total protein is 6.2, albumin is3.9, calcium is 8.6, bilirubin is 0.2, AST is 30, ALT is 47, alkalinephosphatase is 161. White count is 10.8 with an H and H of 30.1 and 5.3 eogd583,000 platelets. Urine grew E. coli, which is sensitive to meropenem, sulfaand nitrofurantoin. [id number] DIAGNOSTIC IMPRESSION:1. Subdural hematoma, status post evacuation.2. Altered mental status that has improved.3. Fatty liver versus cirrhosis. The patient is on rifaximin and lactulose.4. Hypertension. The patient is on Norvasc, hydralazine, losartan,propranolol.5. History of depression. The patient is on Effexor.6. Peptic ulcer diseas e prophylaxis. The patient is on Protonix.7. Deep vein thrombosis prophylaxis. The patient is on SCDs.8. Hyperlipidemia. The patient is on atorvastatin.9. Bronchial secretions. The patien t is on albuterol and Atrovent.10. Obstructive sleep apnea. The patient is on BiPAP at night. H e willrequire sleep studies and he will require no t to be off his CPAP or BiPAP at anytime while he sleeps. The patient will be followed very closel y in the unit. Dictated By: River Issa MD WT: PN:S.JEANNETTE/SRINIVAS/NTSDD: 12/07/2020 12:01:04DT: 12/07/2020 12:50:11Conf#: [id number]/DID#: [id number] Authenticated by Estevan Issa MD On 12/07/2020 01:03:57 PM at 1304 [facility]: [facility] [id number] Cglb9430-06-98U84:50:00S.[id number] a ble for patient knlwFFFIFGMZXHWLNO8091-45-84E16:04:33 2020-12-07 04:50:00 [id number]:50:915142-[address] [address] PATIENT NAME: ELENO SPENCER JR ADMIT DATE: 11/22/20ACCOUNT NO: [id number] ROOM NO: [id number] AGE: 70 REPORT TYPE: PROGRESS NOT E SEX: M ADMITTING PHYSICIAN:Guy Marcial MD ATTENDING PHYSICIAN:Guy Marcial MD DATE: INFECTIOUS DISEASE PROGRESS NOTE SUBJECTIVE: The patient is comfortable at present time, alert an d attentive,does have gram-negative rods in urine that I probably will treat under thecircumstances, awaiting ID and sensitivity of organism, we will make furtherantibiotic decisions when that information is available. Silverio silva notes have beenreviewed, read, acknowledged and understood. Discussed in detail with Dr.Samani adeel connor well as Dr. Issa. OBJECTIVE:VITAL SIGNS: Temperature is 98 degrees, blood pressure of 128/79, pulse 83 perminute and regular, respirations are 18 per minute.GENERAL: He is a well-developed, well-nourished man, who at present time is inno acute distress.SKIN: No new visible lesions.NODES: None were palpable.HEENT: Has not changed.NECK: Supple.LUNGS: Scattered crackles and rhonchi.HEART: Regular rhythm without murmurs, gallops, or rubs.ABDOMEN: Soft, nontender. No hepatosplenomegaly.EXTREMITIES: No clubbing, cyanosis, or significant edema.NEUROLOGIC: The patient is at baseline. LABORATORY DATA AVAILABLE: Has been reviewed. IMPRESSION: Stable from infectious diseases standpoint except gram-negativerods in the urine . RECOMMENDATIONS: Follow up on ID and sensitivity of organism, we will beginantibiotics directed against this organism when information returns. We willadjust antimicrobial interventions as meghna a and clinical circumstances dictate. Dictated By: Ismael Julio Jr, MD WT: PN:CHEO/SELINA/NTSDD: 12/07/2020 04:50:19DT: 12/07/2020 05:05:58Conf#: [id number]/DID#: [id number] PATIENT NAME: DANICA SPENCER JR ACCONT #: [id number] Authenticated by Ismael Julio MD On 12/07/2020 01:09:24 PM at 1309 PATIENT NAME: DANICA SPENCER JR ACCONT #: [id number] Pzdn0738-71-38B18:05:00S.[id number] a ble for patient omfbRYOOHMLAFEQHGH2398-99-88V24:10:04 2020-12-06 17:38:00 [id number]:38:052161-8 [address] [place] [address] PATIENT NAME: ELENO SPENCER JR ADMIT DATE: 11/22/20ACCOUNT NO: [id number] ROOM NO: [facility] AGE: 70 REPORT TYPE: PROGRESS NOT E SEX: M ADMITTING PHYSICIAN:Guy Marcial MD ATTENDING PHYSICIAN:Guy Marcial MD DATE: PROGRESS NOTE SUBJECTIVE: Doing well, ____ potty and complaining of diarrhea. Discussed withnursing staff. Stool for C. diff is in progress. No chest pain, no nausea. His is present at the bedside. OBJECTIVE:VITAL SIGNS: Blood pressure 120/60, heart rate 87.HEENT: Head is normocephalic.CHEST AND LUNGS: Bilateral breathing sounds.HEART: Normal S1, S2.ABDOMEN: Soft.EXTREMITIES: No edema. ASSESSMENT AND PLAN:1. Ulcerative colitis, stool for C. diff is pending.2. Subdural hematoma, improved. Doing much better.3. Diabetes mellitus type 2. Continu e the patient on Levemir 10 units daily. The patient is on sliding scale insulin.3. Hypertension, controlled. Continue the patient o n amlodipine 10 mg daily. Dictated By: Guy Marcial MD WT: PN:SNATANAEL/CLARISSA./NTSDD: 12/06/2020 17:38:52DT: 12/06/2020 22:45:56Conf#: [id number]/DID#: [id number] Authenticated by Guy Marcial MD On 12/07/2020 01:22:08 PM at 1322 PATIENT NAME: LEENO SPENCER JR ACCONT #: [id number] Jcvx2054-50-54G38:45:00S.[id number] a ble for patient nssxVKARYKAXIFJUPF8925-19-17V97:22:45 2020-12-06 12:48:00 [id number]:48:697072-[address] [address] PATIENT NAME: ELENO SPENCER JR ADMIT DATE: 11/22/20ACCOUNT NO: [id number] ROOM NO: S.[facility] AGE: 70 REPORT TYPE: PROGRESS NOT E SEX: M ADMITTING PHYSICIAN:Guy Marcial MD ATTENDING PHYSICIAN:Guy Marcial MD DATE: 12/06/2020 PULMONARY PROGRESS NOTE The patient was seen from 12 noon to 12:25 p.m. A total of 2 5 minutes werespent taking care of the patient. Th e patient was discussed with OK Potter. SUBJECTIVE: The patient is a 70-year-old man with history of seizure disorder,on Dilantin; hypertension, hyperlipidemia, obstructive sleep apnea, who wasadmitted after a fall to an acute care hospital with increasing headache andleft sided weakness and was found to have a subdural hematoma, which requiredemergently evacuation, compression. The CT scan of the chest showed midlineshift. The patient had to be intubated an d mechanically ventilated. Thepatient was extubate d and he passed a modified barium swallow. The patient nowneeds to be on BiPAP while he is asleep since he has episodes of obstructionthat he has had for quite some time, but never diagnosed. The patient ingeneral is doing better . He has no acute complaints. OBJECTIVE:VITAL SIGNS: He has a temperature of 98, heart rate of 89, respiratory rate of18, blood pressure is 99/59 and he has a pulse oximetry of 98% on 2 liters vianasal cannula.HEENT: Normocephalic, atraumatic. Pupils are equal and reactive.NECK: Supple. There is no JVD.CHEST: Decreased breath sounds with increased expiratory phase, otherwis e clearto auscultation.ABDOMEN: Quite obese, and nontender.GENITOURINARY: No CVA tenderness.EXTREMITIES: There is no clubbing, cyanosis, or edema.NEUROLOGIC: The patient is awake, alert, oriented, and grossly nonfocal. LABORATORY DATA: Sodium is 140, potassium is 4.6 , chloride is 105, CO2 is 26,glucose is 115, creatinine 1.0, total protein of 6.4, albumin is 4.0, calcium is8.7, bilirubin is 0.2, SGOT 47, SGPT 62, alkaline phosphatase is 165. Whitecount is 10.0 with an H and H of 9.1 and 31.1 with 618,000 platelets. DIAGNOSTIC IMPRESSION:1. Respiratory failure with hypoxemia. The patient is doing significantlybetter. The patient is abl e to sat above 90% on room air if he is sitting up . By lying down due to his obesity, his abdomen compresses his diaphragms andmaking him shunt at the bases. PATIENT NAME: ELENO SPENCER JR [facility] #: [id number] 2. Obstructive sleep apnea. The patient is presently on a BiPAP machine atnight. The patient does not have a machine at home. The patient will requireto get sleep study as an outpatient unless he has CO2 retention for which reasonhe is going to get a blood gas. If he does, then he can get a BiPAP machineapproved because of obesity hypoventilation.3. Chronic liver disease, most likely fatty liver, possible cirrhosis. Thepatient is on rifaximin.4. Altered mental status, status post subdural hematoma. The patient issignificantly better.5. Hyperglycemia. The patient is under control with an insulin sliding scale. The patient is seriously ill and he will be followed very closely in the unit. Dictated By: River Issa MD WT: PN:S.JEANNETTE/SRINIVAS/BRAYDENDD: 12/06/2020 12:48:15DT: 12/06/2020 13:07:50Conf#: [id number]/DID#: [id number] Authenticated by Estevan Issa MD On 12/06/2020 01:44:58 PM at 1345 PATIENT NAME: ELENO SPENCER JR ACCONT #: [id number] Yezt5756-19-67F14:07:00S.[id number] a ble for patient zriuJBFFSFNKOZBRCQ9547-62-32Z53:45:39 2020-12-06 04:46:00 [id number]:46:433745-[address] [address] PATIENT NAME: ELENO SPENCER JR ADMIT DATE: 11/22/20ACCOUNT NO: [id number] ROOM NO: S.[facility] AGE: 70 REPORT TYPE: PROGRESS NOT E SEX: M ADMITTING PHYSICIAN:Guy Marcial MD ATTENDING PHYSICIAN:Guy Marcial MD DATE: INFECTIOUS DISEASE PROGRESS NOTE SUBJECTIVE: The patient's mental status overall has not changed. No specificother issues from infectious disease standpoint through the evening. Remains onantibiotic holiday at present time. All repeat cultures are in progress, so farso good. No specific other issues noted from the infectious diseasesstandpoint. We will continue to observe for now. Discussed in detail with as well as Dr. Issa. OBJECTIVE:VITAL SIGNS: Temperature is 97 degrees, blood pressure 112/62 , pulse 82 perminute and regular, respirations are 19 per minute.GENERAL: He is a well-developed, well-nourished man, who at present time is inno acute distress.SKIN: No new visible lesions.NODES: None were palpable.HEENT: Has not changed.NECK: Supple.LUNGS: Crackles and rhonchi.HEART: Regular rhythm without murmurs, gallops, or rubs.ABDOMEN: Soft, nontender. No hepatosplenomegaly.EXTREMITIES: No clubbing, cyanosis, or significant edema.NEUROLOGIC: No specific new focal findings. LABORATORY DATA AVAILABLE: Has been reviewed. IMPRESSION: Stable from infectious diseases standpoint, afebrile, o n antibioticholiday. RECOMMENDATIONS: We will continue as is for now. No antibiotic changes areindicated at present time. Remain vigilant fo r further nosocomial issues andadjust intervention s as data and clinical circumstances dictate. Dictated By: Ismael Julio Jr, MD WT: PN:S.JEANNETTE/SELINA/NTSDD: 12/06/2020 04:46:25DT: 12/06/2020 05:39:38Conf#: [id number]/DID#: [id number] PATIENT NAME: ELENO SPENCER JR ACCONT #: [id number] Authenticated by Danna Mitchell On 12/06/2020 01:06:57 PM at 1307 PATIENT NAME: ELENO SPENCER JR ACCONT #: [id number] Xnbm7707-10-97F63:39:00S.[id number] a ble for patient mbaeAJQYUGJZULVTYJ1229-53-72C43:07:35 2020-12-06 03:15:00 [id number]:15:964681-0 [address] [place] [address] PATIENT NAME: ELENO SPENCER JR ADMIT DATE: 11/22/20ACCOUNT NO: [id number] ROOM NO: S.[facility] AGE: 70 REPORT TYPE: PROGRESS NOT E SEX: M ADMITTING PHYSICIAN:Guy Marcial MD ATTENDING PHYSICIAN:Guy Marcial MD DATE: 12/05/2020 PROGRESS NOTE SUBJECTIVE: He is feeling better. OBJECTIVE:VITAL SIGNS: Blood pressure and heart rate are stable.GENERAL: Condition is good. Speech is normal. Oriented x3.NEUROLOGICAL: Moving all extremities. LABORATORY DATA: Reviewed. MEDICATIONS: Reviewed . ASSESSMENT AND PLAN: He is a 70-year-old patient with right hemisphericsubdural hematoma with left-sided weakness. He had evacuation of subduralhematoma. Neurologically, he is doing much better. Moving left upper and lowerextremities fairly well. Continue present treatment. Dictated By: Garrick Xiao WT: PN:S.JEANNETTE/RIKKI/NTSDD: 12/06/2020 03:15:02DT: 12/06/2020 03:28:06Conf#: [id number]/DID#: [id number] Authenticated by Garrick Thompson MD On 12/06/2020 09:31:52 PM at 2132 PATIENT NAME: ELENO SPENCER JR ACCONT #: [id number] Xnwb1070-58-79N98:28:00S.[id number] a ble for patient ewxgZYWMPOAQMHDLWO1484-96-47D38:32:32 2020-12-05 16:46:00 [id number]:46:610745-[address] [address] PATIENT NAME: ELENO SPENCER JR ADMIT DATE: 11/22/20ACCOUNT NO: [id number] ROOM NO: [facility] AGE: 70 REPORT TYPE: PROGRESS NOT E SEX: M ADMITTING PHYSICIAN:Guy Marcial MD ATTENDING PHYSICIAN:Guy Marcial MD DATE: 12/05/2020 PROGRESS NOTE SUBJECTIVE: Events note d and doing well. No chest pain, no nausea. No otherissues reported overnight. Discussed with nursing staff. OBJECTIVE:VITAL SIGNS: Blood pressure 150/60, heart rate of 80, and temperature 36.5.HEENT: Head is normocephalic.CHEST AND LUNGS: Bilateral breathing sounds.HEART: Normal S1, S2.ABDOMEN: Soft.EXTREMITIES: No edema. PERTINENT FINDINGS:1 . Potassium 4.6.2. Hemoglobin 9.9.3. WBC 10.4. INR of 1. ASSESSMENT AND PLAN:1. Subdural hematoma. Doing better. Continue physical therapy, PT, OT, fallprecaution.2. Anemia, remains stable. Hemoglobin 9.9.3. Respiratory failure. The patient followed by Dr. Issa from pulmonaryservice. The patient remains on BiPAP a t nighttime. Continue the patient onsupplemental oxygen.4. Left lower lobe infiltrate and pneumonia. The patient was treated withcomplete course of antibiotics with cefepime. The patient at risk fornosocomial infection. Dr. Julio following. Dictated By: Guy Marcial MD WT: PN:S.JEANNETTE/CLARISSA.01/NTSDD: 12/05/2020 16:46:10DT: 12/05/2020 20:46:15Conf#: [id number]/DID#: [id number] PATIENT NAME: ELENO SPENCER JR ACCONT #: [id number] Authenticated by Guy Marcial MD O n 12/06/2020 06:19:36 AM at 0620 PATIENT NAME: ELENO SPENCER JR ACCONT #: [id number] Wcsw3537-19-43Y30:46:00S.[id number] a ble for patient ziffBTHIRZGZBKDDFT1161-40-88S94:20:12 2020-12-05 11:47:00 [id number]:47:453747-2 [address]60 [place] [address] PATIENT NAME: ELENO SPENCER JR ADMIT DATE: 11/22/20ACCOUNT NO: [id number] ROOM NO: S[facility] AGE: 70 REPORT TYPE: PROGRESS NOT E SEX: M ADMITTING PHYSICIAN:Guy Marcial MD ATTENDING PHYSICIAN:Guy Marcial MD DATE: 12/05/2020 PULMONARY PROGRESS NOTE The patient was seen from 10:30 a.m. to 10:55 a.m. A total o f 25 minutes werespent taking care of the patient. The patient was discussed with OK Tavares. SUBJECTIVE: The patient is a 70-year-old man wit h a history of seizuredisorder, on Dilantin, hypertension, hyperlipidemia that on 11/11/2000, fell,was admitted to the hospital with increasin g headaches and left-sided weakness. He was found to have a subdural hematoma with brain, midline shift and was takenemergently to the OR for evacuation and decompression. He was intubated andmechanically ventilated. The patient was extubated and initially failed aswallowing test and then he passed it. The patient was transferred [facility] for further management. The patient is with obstructivesleep apnea secondary to morbid obesity and he is on BiPAP. The patient feelsbetter. PHYSICAL EXAMINATION:VITAL SIGNS: He has a temperature of 97.7, heart rate of 95, respiratory rateof 18, blood pressure is 130/74 and a pulse oximetry of 93% on 2 liters vianasal cannula.HEENT: Normocephalic, atraumatic. Pupils are equal and reactive.NECK: Supple. There is no JVD.CHEST: Shallow breathing, morbidly obese.CARDIOVASCULAR : S1, S2. No murmurs, gallop, or rub.ABDOMEN: Freddy l sounds are positive. Soft and nontender.GENITOURINARY: No CVA tenderness.EXTREMITIES: There is no clubbing, cyanosis, or edema.NEUROLOGIC: The patient is awake. He is oriented x3, and grossly nonfocal. LABORATORY DATA: Sodium is 140, potassium is 4.6 , chloride is 105, CO2 is 26,glucose is 115, BUN i s 12, creatinine is 1.0, total protein is 6.4, albumin is4.0, calcium is 8.7, bilirubin is 0.2, SGOT 47, SGPT 62, alkaline pwfxwoezfvg597, magnesium is 2.1, phosphorus is 3.9. White count is 10.0 with an H and Hof 9.9 and 31.1 with 618,000 platelets. DIAGNOSTIC IMPRESSION:1. Respiratory failure with hypoxemia. The patient is doing better. The PATIENT NAME: DNAICA SPENCER [facility] #: [id number] patient had some pulmonary congestion and pulmonary edema showing as groundglass opacities on chest x-ray and CT scan of the chest. We will get a chestx-ray in the morning.2. Obstructive sleep apnea. The patient is on BiPAP, also for obesityhypoventilation.3. Morbid obesity. The patient has been encouraged to lose weight.4. Left lower lobe infiltrate consistent with pneumonia. He completedtreatment with cefepime.5 . Altered mental status post subdural hematoma. Th e patient is every day morealert.6. History of diabetes. The patient is under control at the present time.7. Cirrhosis. The patient had an ultrasound of the right upper quadrant withelastography and he was found to have stiffness of the liver suggestive ofcirrhosis, hopefully it is fatty liver and the patient coul d improve with time. The patient is seriously ill and he will be followed very closely in the unit . Dictated By: River Issa MD WT: PN:S.JEANNETTE/SRINIVAS/NTSDD: 12/05/2020 11:47:31DT: 12/05/2020 12:08:55Conf#: [id number]/DID#: [id number] Authenticated by Estevan Issa MD On 12/05/2020 12:28:25 PM at 1228 PATIENT NAME: ELENO SPENCER JR ACCONT #: [id number] Bxqp8674-54-11B82:08:00S.[id number] a ble for patient cwszHYXDINYTWVAUUD4551-19-93X13:29:00 2020-12-05 05:16:00 [id number]:16:218826-8 010 [place] [address] PATIENT NAME: ELENO SPENCER JR ADMIT DATE: 11/22/20ACCOUNT NO: [id number] [facility] 70 REPORT TYPE: PROGRESS NOT E SEX: M ADMITTING PHYSICIAN:Guy Marcial MD ATTENDING PHYSICIAN:Guy Marcial MD DATE: INFECTIOUS DISEASE PROGRESS NOTE SUBJECTIVE: The patient's mental status overall has not changed. All noteshave been reviewed, read, acknowledged and understood. Appears to becomfortable at present time, eating and drinking without difficulty. More alertand attentive. Nothing to suggest new infectious disease problems at presenttime. We will repeat blood, urine, and wound cultures to make sure we are aheadof primary infection. No new secondary ones have developed. Nurses note nosignificant issues from infectious disease standpoint through the evening. Remains on antibiotic holiday at this juncture. OBJECTIVE:VITAL SIGNS: Temperature is 98 degrees, blood pressure 125/82, pulse 78 perminute and regular, respirations are 18 per minute.GENERAL: He is a well-developed, well-nourished man, who at present time is inno acute distress.SKIN: No change in wounds.NODES: None were palpable.HEENT: Has not changed.NECK: Supple.LUNGS: Scattered crackles, but fairly clear.HEART: Regular rhythm without murmurs, gallops, or rubs.ABDOMEN: Soft, nontender. No hepatosplenomegaly.EXTREMITIES: No clubbing, cyanosis, or significant edema.NEUROLOGIC: The patient is at baseline. LABORATORY DATA AVAILABLE: Has been reviewed. IMPRESSION: Stable from infectious diseases standpoint, no new fernanda r issuesnoted. RECOMMENDATIONS: Blood and urine cultures will be repeated today. Remains onantibiotic holiday. We will not intervene with antibiotics unless definableinfection is noted. We will adjust antimicrobial agents at that juncture asdata and clinical circumstances dictate. Dictated By: Ismael Julio Jr, MD WT: PN:S.JEANNETTE/SELINA/BRAYDEN PATIENT NAME: DANICA SPENCERRenetta Vallejo JR ACCONT #: [id number] DT: 12/05/2020 05:37:30Conf#: [id number]/DID#: [id number] Authenticated by Ismael Julio MD On 12/05/2020 01:26:44 PM at 1327 PATIENT NAME: ELENO SPENCER Kati FRANKLIN ACCONT #: [id number] Jvuw6729-10-19G86:37:00S.[id number] a ble for patient qvmgXJBBSRZMFCSNRC3994-96-53X98:27:21 2020-12-04 12:46:00 [id number]:46:061154-[address] [address] PATIENT NAME: JOHANNAELENORenetta Vallejo JR ADMIT DATE: 11/22/20ACCOUNT NO: [id number] ROOM NO: [facility] AGE: 70 REPORT TYPE: PROGRESS NOT E SEX: M ADMITTING PHYSICIAN:Guy Marcial MD ATTENDING PHYSICIAN:Guy Marcial MD DATE: 12/04/2020 PROGRESS NOTE SUBJECTIVE: Events noted. Discussed with nursing staff. Doing about the same. Awake, in no distress. OBJECTIVE:VITAL SIGNS: Blood pressure 120/60, heart rate 70, and temperature 36.7.HEENT: Head is normocephalic.NECK: Supple.CHEST AND LUNGS: Bilateral breathing sounds.HEART: Normal S1, S2.ABDOMEN: Soft.EXTREMITIES: No edema. ASSESSMENT AND PLAN:1. Subdural hematoma. CT of the head noted. Neurology following the patient. Continue the patient on seizure precaution.2. Respiratory failure, improving. Continue the patient on BiPAP at nighttime. Continue the patient on supplemental oxygen. Dr. Issa, pulmonary service isfollowing the patient.3. Diabetes mellitus type 2. Continue the patient o n Lantus 10 units atnighttime and sliding scale.4. Hypertension, controlled. Continue the patient o n Cozaar 50 mg twice daily. Dictated By: Guy Marcial MD WT: PN:S.JEANNETTE/CLARISSA./NTSDD: 12/04/2020 12:46:25DT: 12/04/2020 13:33:08Conf#: [id number]/DID#: [id number] Authenticated by Guy Marcial MD On 12/05/2020 03:41:22 PM at 1541 PATIENT NAME: ELENO SPENCER JR ACCONT #: [id number] Prvm5415-33-41C43:33:00S.SLC94769149-1641CZZdlaw a [facility] hetzTTUVYVANHHBYXK4484-93-89X03:41:55 2020-12-04 04:36:00 [id number]:36:221088-[address] [address] PATIENT NAME: ELENO SPENCER Kati FRANKLIN ADMIT DATE: 11/22/20ACCOUNT NO: [id number] ROOM NO: [facility] AGE: 70 REPORT TYPE: PROGRESS NOT E SEX: M ADMITTING PHYSICIAN:Guy Marcial MD ATTENDING PHYSICIAN:Guy Marcial MD DATE: 12/03/2020 NEUROLOGY PROGRESS NOTE SUBJECTIVE: The patient is seen and examined in his room. He is feelingbetter. OBJECTIVE:VITAL SIGNS: Blood pressure and heart rate are stable. Awake and appropriate.NEUROLOGIC: Speech is normal. Crania l nerves are normal. Moving both upperand both lower extremities fairly well and strength is 4 to 5/5. LABORATORY DATA: Reviewed. MEDICATIONS: Reviewed. ASSESSMENT AND PLAN: He is a 70-year-old patient with right subdural hematomaand post-surgery he is doing much better . Continue present treatment. Dictated By: Garrick Xiao WT: PN:SNATANAEL/RIKKI/NTSDD: 12/04/2020 04:36:24DT: 12/04/2020 04:59:58Conf#: [id number]/DID#: [id number] Authenticated by Garrick Thompson MD On 12/06/2020 09:31:51 PM at 2132 PATIENT NAME: ELENO SPENCER ACCONT #: [id number] Qqbx2777-01-42J37:59:00S.EUS13895717-4863GQGjfqy a ble for patient wnaaMZWXSSTNSDFJOV7364-08-66M68:32:32 2020-12-04 04:34:00 [id number]:34:635626-[address] [address] PATIENT NAME: ELENO SPENCER ADMIT DATE: 11/22/20ACCOUNT NO: [id number] ROOM NO: S.474 AGE: 70 REPORT TYPE: PROGRESS NOTE SEX: M ADMITTING PHYSICIAN:Guy Marcial MD ATTENDING PHYSICIAN:Guy Marcial MD DATE: INFECTIOUS DISEASE PROGRESS NOTE SUBJECTIVE: The patient is afebrile and stable on antibiotic holiday. Continueto follow at present time. High risk for nosocomial infection, so followingclosely, but so far so good on antibiotic holiday. We will continue to follow. No antibiotic adjustments are indicated at this juncture. Dictated By: Ismael Julio Jr, MD WT: PN:S.JEANNETTE/SELINA/NTSDD: 12/04/2020 04:34:56DT: 12/04/2020 04:57:11Conf#: [id number]/DID#: [id number] Authenticated by Ismael Julio MD On 01:26:43 PM at 1327 PATIENT NAME: ELENO SPENCER JR ACCONT #: [id number] Lqkq1290-21-40E23:57:00S.[id number] a ble for patient nosxKXKSUOMXCNLOXA6592-40-46O99:27:14 2020-12-03 20:46:00 [id number]:46:511953-[address] [address] PATIENT NAME: ELENO SPENCER JR ADMIT DATE: 11/22/20ACCOUNT NO: [id number] ROOM NO: S.474 AGE: 70 REPORT TYPE: PROGRESS NOT E SEX: M ADMITTING PHYSICIAN:Guy Marcial MD ATTENDING PHYSICIAN:Guy Marcial MD DATE: 12/02/2020 SUBJECTIVE: Events noted. Discussed with nursing staff. Doing about the same. Seen b y psychiatry and started on Ativan p.r.n. for depression. No new issuesreported overnight. OBJECTIVE:VITAL SIGNS: Blood pressure 112/67, heart rate 80, temperature ____.HEENT: Head is normocephalic.CHEST AND LUNGS: Bilateral breathing sounds.HEART: Normal S1, S2.ABDOMEN: Soft.EXTREMITIES: No edema. PERTINENT FINDINGS: Hemoglobin 9.4. WBC 8.3. Potassium 4.8. ASSESSMENT AND PLAN:1. Major depressive disorder . The patient is followed by psychiatry. Hallucination noted. The patient is started on Ativan p.r.n. Remains onEffexor.2. Hypertension, controlled. Dr. Mcmanus, cardiology is following the patient,remains on atorvastatin.3. Respiratory failure, improved. Continue the patient on supplemental oxygen.4. Subdural hematoma. CT of the head noted. MRI of the brain without contrastwill be obtained. Dictated By: Guy Marcial MD WT: PN:SNATANAEL/NTSDD: 12/03/2020 20:46:38DT: 12/03/2020 23:58:08Conf#: [id number]/DID#: [id number] Authenticated by Guy Marcial MD On 12/05/2020 03:41:22 PM PATIENT NAME : ELENO SPENCER JR ACCONT #: [id number] at 1541 PATIENT NAME: ELENO SPENCER JR ACCONT #: [id number] Wplw4758-01-77H67:58:00S.[id number] a ble for patient encfCHJFNDYDVZKAYU8377-52-19G67:41:55 2020-12-03 04:45:00 [id number]:45:840075-2 [address]11 [place] [address] PATIENT NAME: ELENO SPENCER JR ADMIT DATE: 11/22/20ACCOUNT NO: [id number] ROOM NO: S[facility] AGE: 70 REPORT TYPE: PROGRESS NOT E SEX: M ADMITTING PHYSICIAN:Guy Marcial MD ATTENDING PHYSICIAN:Guy Marcial MD DATE: INFECTIOUS DISEASE PROGRESS NOTE SUBJECTIVE: The patient's mental status overall has not changed. No fevers,chills, sweats or major issues noted. He is afebrile and stable, on antibioticholiday. We will continue to follow due to risk of active infectious diseaseprocess, but so far so good on antibiotic holiday. We will continue to follow. Dictated By: Ismael Julio Jr, MD WT: PN:CHEO/SELINA/NTSDD: 12/03/2020 04:45:38DT: 12/03/2020 05:09:15Conf#: [id number]/DID#: [id number] Authenticated by Ismael Julio MD On 01:26:43 PM at 1327 PATIENT NAME: ELENO SPENCER JR ACCONT #: [id number] Uinz5738-98-84Y51:09:00S.GGG66593511-2013APNzqxp a ble for patient otqtTNJLDBGZCVQOXX5366-75-74T55:27:13 2020-12-02 17:03:00 [id number]:03:233722-[address] [address] PATIENT NAME: ELENO SPENCER JR ADMIT DATE: 11/22/20ACCOUNT NO: [id number] ROOM NO: S[facility] AGE: 70 REPORT TYPE: PROGRESS NOTE SEX: M ADMITTING PHYSICIAN:Guy Marcial MD ATTENDING PHYSICIAN:Guy Marcial MD DATE: 12/02/2020 SUBJECTIVE: Events noted. Doing about the same. Awake. No fever, no nausea. No other issues reported. OBJECTIVE:VITAL SIGNS: Blood pressure 110/70, heart rate is 72, and temperature 37.8.HEENT: Head is normocephalic.CHEST AND LUNGS: Bilateral breathing sounds.HEART: S1, S2.ABDOMEN: Soft.EXTREMITIES: No edema. PERTINENT FINDINGS: Potassium 4.8. Creatinine 0.8. Hemoglobin 9.4. C T of the head without contrast showed postoperativ e changes. CT of the headnoted. ASSESSMENT AND PLAN:1. Subdural hematoma, CT noted. I will obtain an MRI of the brain withoutcontrast. Neurology service, Dr. Thompson is following the patient.2. Respiratory failure, doing better on BiPAP at nighttime, on supplementaloxygen during the day. Dr. Issa, pulmonary service is following the patient.3. Debility. PT, OT, fall precaution. Continue physical therapy.4. Hypertension, controlled. Remains on losartan 50 mg twice a day, lhebebnofr89 mg daily. Dictated By: Guy Marcial MD WT: PN:S.JEANNETTE/CLARISSA.Donna/NTSDD : 12/02/2020 17:03:42DT: 12/02/2020 20:53:33Conf#: [id number]/DID#: [id number] Authenticated by Guy Marcial MD On 12/05/2020 03:41:21 PM PATIENT NAME : ELENO SPENCER JR ACCONT #: [id number] at 1541 PATIENT NAME: ELENO SPENCER JR ACCONT #: [id number] Znuo5000-84-99D51:53:00S.YZU33042663-4517QAHertw a ble for patient qwdmTCNXTOGOTKQNOO3095-57-96P36:41:54 2020-12-02 04:53:00 [id number]:53:998801-[address] [address] PATIENT NAME: ELENO SPENCER JR ADMIT DATE: 11/22/20ACCOUNT NO: [id number] ROOM NO: [facility] AGE: 70 REPORT TYPE: PROGRESS NOT E SEX: M ADMITTING PHYSICIAN:Guy Marcial MD ATTENDING PHYSICIAN:Guy Marcial MD DATE: INFECTIOUS DISEASE PROGRESS NOTE SUBJECTIVE: The patient appears to be comfortable at present time. All noteshave been reviewed from team, read, acknowledged and understood. Nothing tosuggest an active infectious disease problems at present time. Very high risk,so following closely, so far so good. Discussed in detail [facility] Dr. Aggie gaonawell as Dr. Issa. All notes have been reviewed, read, acknowledged andunderstood. Discussed in detail with nursing personnel at e bedside inevening shift, no known untoward issue s from infectious disease standpoint ofconcern. OBJECTIVE:VITAL SIGNS: Temperature 97 degrees, blood pressure 122/74, pulse 72 per minuteand regular, respirations 17 per minute.GENERAL: He is a well-developed, well-nourished man, who at present time is inno acute distress.SKIN: No new visible lesions.NODES: None were palpable.HEENT: Has not changed.NECK: Supple.LUNGS: Scattered crackles, fairly clear.HEART: Regular rhythm without murmurs, gallops, or rubs.ABDOMEN: Soft, nontender. No hepatosplenomegaly.EXTREMITIES: No clubbing, cyanosis, or significant edema.NEUROLOGIC: The patient is at baseline. LABORATORY DATA AVAILABLE: Has been reviewed. IMPRESSION: Stable from infectious diseases standpoint, no new major issuesnoted. RECOMMENDATIONS: Continuing as is for now. No antibiotic changes are indicatedat present time. Remain vigilant for further nosocomial issues an d adjustinterventions as data and clinical circumstances dictate. Dictated By: Ismael Julio Jr, MD WT: PN:S.JEANNETTE/SELINA/NTSDD: 04:53:15 PATIENT NAME: ELENO SPENCER Kati FRANKLIN ACCON T #: [id number] Conf#: [id number]/DID#: [id number] Authenticated by Ismael Julio MD On 12/02/2020 12:45:40 PM at 1246 PATIENT NAME: DANICA SPENCER ACCONT #: [id number] Epcb8189-15-43W89:41:00S.UNA86597816-4909SDKafwn a ble for patient qomgSONPZEXGIBLEFT3680-42-21Z01:46:21 2020-12-02 02:07:00 WGbgfuujfgo858671370786-53-29L83:07:064868-[address] [address] PATIENT NAME: ELENO SPENCER ADMIT DATE: 11/22/20ACCOUNT NO: [id number] ROOM NO: S.474 AGE: 70 REPORT TYPE: PROGRESS NOT E SEX: M ADMITTING PHYSICIAN:Guy Marcial MD ATTENDING PHYSICIAN:Guy Marcial MD DATE: 12/01/2020 PROGRESS NOTE SUBJECTIVE: The patient seen and examined in his room. Events reviewed. OBJECTIVE:VITAL SIGNS: Blood pressure and heart rate are stable. Respiration is normal.GENERAL: He is awake and feeling better. Speech is normal.NEUROLOGIC: Cranial nerves are normal. Moving all extremities. LABORATORY DATA: Reviewed. MEDICATIONS: Reviewed. ASSESSMENT AND PLAN: He is 70-year-old patient with traumatic right subduralhematoma, treated with craniectomy and evacuation. He also has diabeticneuropathy and seizures. He is on Dilantin. No new seizures . Doing better. Continue present treatment. Dictated By: Garrick Xiao WT: PN:S.HIM/NUNOU/NTSDD: 12/02/2020 02:07:03DT: 12/02/2020 02:50:00Conf#: [id number]/DID#: [id number] Authenticated by Garrick Thompson MD On 12/02/2020 10:04:55 PM at 2205 PATIENT NAME: ELENO SPENCER JR ACCONT #: [id number] Rybi6266-84-40V75:50:00S.[id number] a ble for patient anzfIZXOEQBGADSKKT6749-50-94C09:05:28 2020-12-01 19:11:00 [id number]:11:509483-[address] [address] PATIENT NAME: ELENO SPENCER JR ADMIT DATE: 11/22/20ACCOUNT NO: [id number] ROOM NO: [facility] AGE: 70 REPORT TYPE: PROGRESS NOTE SEX: M ADMITTING PHYSICIAN:Guy Marcial MD ATTENDING PHYSICIAN:Guy Marcial MD DATE: 12/01/2020 PROGRESS NOTE SUBJECTIVE: Events noted, doing better, awake and responsive, transferred tofloor. No chest pain, no nausea. Complaining of depression. I offered him apsychiatric consultation and he is in agreeable . OBJECTIVE:VITAL SIGNS: Blood pressure 140/60, heart rate of 80, and temperature 36.7,respiratory rate 17.HEENT: Head is normocephalic.CHEST AND LUNGS: Bilateral breathing sounds.CARDIOVASCULAR: S1, S2.ABDOMEN: Soft.EXTREMITIES: No edema. ASSESSMENT AND PLAN:1. Subdural hematoma ____ order a CT of the head to follow subdural hematoma. ____ consultation with Dr. Morocho will be obtained.2. Respiratory failure. The patient is tolerating BiPAP at nighttime. Remainson supplemental oxyge n during the day. Dr. Issa, pulmonary service isfollowing the patient.3. Hypertension, better controlled with losartan and amlodipine. Dr. Mcmanus,cardiology following the patient.4. Debility. PT, OT, fall precaution. Dictated By: Guy Marcial MD WT: PN:S.HIM/CLARISSA./NTSDD: 12/01/2020 19:11:51DT: 12/01/2020 20:50:24Conf#: [id number]/DID#: [id number] Authenticated by Guy Marcial MD On 12/02/2020 04:31:14 PM at 1631 PATIENT NAME: ELENO SPENCER JR ACCONT #: [id number] Xloh7251-66-39H88:50:00S.[id number] a ble for patient jqofUYTKDFPUNYGBZO1394-33-23A82:31:43 2020-12-01 04:28:00 VCgninlovya812572891488-82-35N74:28:027681-[address] [address] PATIENT NAME: ELENO SPENCER JR ADMIT DATE: 11/22/20ACCOUNT NO: [id number] ROOM NO: [facility] AGE: 70 REPORT TYPE: PROGRESS NOTE SEX: M ADMITTING PHYSICIAN:Guy Marcial MD ATTENDING PHYSICIAN:Guy Marcial MD DATE: INFECTIOUS DISEASE PROGRESS NOTE SUBJECTIVE: The patient's mental status overall about the same. He is overallbetter, getting stronger. No fevers , chills, sweats, or other issues noted. Remains o n antibiotic holiday. High risk for nosocomial infections, but so farso good on antibiotic holiday. We will continue to follow closely. Noantibiotics are warranted unless definable infection is noted. We will docultures periodically to make sure we are ahead of any developing infectiousdisease related issues. Discussed in detail with Dr. Marcial as well as . Nursing personnel on evening shift hav e not noted any major issues. OBJECTIVE:VITAL SIGNS: Temperature is 97 degrees, blood pressure 124/65, pulse 98 perminute and regular, respirations are 18 per minute.GENERAL: He is a well-developed, well-nourished man, who at present time is inno acute distress.SKIN: No new visible lesions.NODES: None were palpable.HEENT: Has not changed.NECK: Supple.LUNGS: Fairly clear.HEART: Regular rhythm without murmurs, gallops, or rubs.ABDOMEN: Soft, nontender. No hepatosplenomegaly.EXTREMITIES: No clubbing, cyanosis, or significant edema.NEUROLOGIC: The patient is at baseline. LABORATORY DATA AVAILABLE: Has been reviewed. IMPRESSION: Stable from infectious diseases standpoint, so far so good onantibiotic holiday. RECOMMENDATIONS: We will continue as is for now. Remain vigilant fornosocomial infection. Continue present supportive care and adjust antimicrobialagents and interventions as data and clinical circumstances dictate. Dictated By: Ismael Julio Jr, MD WT: PN:S.JEANNETTE/SELINA/NTSDD: 04:28:16 PATIENT NAME: ELENO SPENCER JR ACCON T #: [id number] Conf#: [id number]/DID#: [id number] Authenticated by Ismael Julio MD On 12/01/2020 01:05:29 PM at 1305 PATIENT NAME: ELENO SPENCER JR ACCONT #: [id number] Qofj4561-81-13M09:58:00S.[id number] a ble for patient wwflVGABECZJHUXRXV8757-99-77E73:06:02 2020-11-30 13:37:00 YKuopptfqet587673752672-62-24B89:37:656687-8 045 [facility] [address] [place] [address] PATIENT NAME: ELENO SPENCER JR ADMIT DATE: 11/22/20ACCOUNT NO: [id number] ROOM NO: S.[facility] AGE: 70 REPORT TYPE: PROGRESS NOTE SEX: M ADMITTING PHYSICIAN:Guy Marcial MD ATTENDING PHYSICIAN:Guy Marcial MD DATE: 11/30/2020 PROGRESS NOTE SUBJECTIVE: Events note d and doing well, working with therapist. No chestpain, no nausea, no other issues reported overnight. Discussed with . OBJECTIVE:VITAL SIGNS: Blood pressure 170/70, heart rate of 70, temperature 97.9.HEENT: Head i s normocephalic.CHEST AND LUNGS: Bilateral breathing sounds.CARDIOVASCULAR: S1, S2.ABDOMEN: Soft.EXTREMITIES: No edema. PERTINENT FINDINGS:1 . Potassium 4.5.2. Hemoglobin is 9.5. ASSESSMENT AND PLAN:1. Acute hypoxemic respiratory failure, improving, remains on BiPAP atnighttime. Dr. Issa, pulmonary service is following the patient.2. Hypertension. Continue the patient on hydralazine 50 mg every 6 hours. Continue the patient on losartan [address] Mcmanus, cardiology isfollowing the patient.3. Subdural hematoma, improving.4. Left sided weakness, has significantly improved. The patient is in physicaltherapy.5. Chronic kidney disease. Renal function is stable. Adjust the losartan,change t o 50 mg twice a day. Dictated By: Guy Marcial MD WT: PN:S.JEANNETTE/CLARISSA./NTSDD: 11/30/2020 13:37:04DT: 11/30/2020 14:32:37Conf#: [id number]/DID#: [id number] PATIENT NAME: DANICA SPENCER JR ACCONT #: [id number] Authenticated by Guy Marcial MD On 11/30/2020 04:35:54 PM at 1636 PATIENT NAME: ELENO SPENCER JR ACCONT #: [id number] Uxqh4869-63-33B25:32:00S.[id number] a ble for patient gvuuBZGWGXMIQBPRMA2915-17-50M28:36:29 2020-11-30 04:59:00 [id number]:59:624845-[address] [address] PATIENT NAME: ELENO SPENCER JR ADMIT DATE: 11/22/20ACCOUNT NO: [id number] ROOM NO: S.351 AGE: 70 REPORT TYPE: PROGRESS NOT E SEX: M ADMITTING PHYSICIAN:Guy Marcial MD ATTENDING PHYSICIAN:Guy Marcial MD DATE: 11/29/2020 PROGRESS NOTE SUBJECTIVE: The patient is seen in his room. No new events. OBJECTIVE:GENERAL: His general condition is good.VITAL SIGNS: Stable.NEUROLOGIC: He is drowsy, but arousable. Moves right side better than leftside. LABORATORY DATA: Reviewed. MEDICATIONS: Reviewed. ASSESSMENT AND PLAN: He i s a 70-year-old patient who had traumatic subduralhematoma over the right hemisphere associated with left hemiparesis. Heunderwent craniectomy and evacuation. He is making slow improvement. He alsodeveloped seizures and is on Dilantin. Continue present treatment. Dictated By: Garrick Xiao WT: PN:S.JEANNETTE/RIKKI/NTSDD: 11/30/2020 04:59:32DT: 11/30/2020 05:10:41Conf#: [id number]/DID#: [id number] Authenticated by Garrick Thompson MD On 11/30/2020 11:09:44 PM at 2310 PATIENT NAME: ELENO SPENCER JR ACCONT #: [id number] Qbrt0925-26-21R95:10:00S.[id number] a ble for patient zdadBTNJVRNWQQFGKI9466-41-58K56:10:17 2020-11-30 04:22:00 [id number]:22:573481-[address] [address] PATIENT NAME: ELENO SPENCER JR ADMIT DATE: 11/22/20ACCOUNT NO: [id number] ROOM NO: S.351 AGE: 70 REPORT TYPE: PROGRESS NOT E SEX: M ADMITTING PHYSICIAN:Guy Marcial MD ATTENDING PHYSICIAN:Guy Marcial MD DATE: INFECTIOUS DISEASE PROGRESS NOTE SUBJECTIVE: The patient's mental status overall has not changed. Nursesindicates he is okay. All notes have been reviewed, read, acknowledged andunderstood. All repeat cultures so far are negative. Remains on antibioticholiday unless definable infection is noted. Discussed with nursing personnelat the bedside in evening shift, no untoward issues fro m infectious diseasestandpoint through the evening . Discussed in detail also with Dr. Aggie moran as Dr. Issa. High risk for infectious disease decompensation, but so farso good on antibiotic holiday. OBJECTIVE:VITAL SIGNS: Temperature 98 degrees, blood pressure 142/81, pulse 80 per minuteand regular, respirations are 25 per minute.GENERAL: He is a well-developed, well-nourished man, in mild respiratorydistress.SKIN: No new visible lesions.NODES: None were palpable.HEENT: Has not changed.NECK: Supple.LUNGS: Decreased breath sounds in the bases.HEART: Regular rhythm withou t murmurs, gallops, or rubs.ABDOMEN: Soft, nontender. No hepatosplenomegaly.EXTREMITIES: No clubbing, cyanosis, or significant edema.NEUROLOGIC: The patient is at baseline. LABORATORY DATA AVAILABLE: Has been reviewed. IMPRESSION: Stable from infectious diseases standpoint, on antibiotic holiday. RECOMMENDATIONS: Continue as is for now. No antibiotic changes are indicatedat present time. Remain vigilant for further nosocomial issues an d adjustinterventions as data and clinical circumstances dictate. Dictated By: Ismael Julio Jr, MD WT: PN:SNATANAEL/SELINA/NTSDD: 04:22:42DT: 11/30/2020 04:36:07 PATIENT NAME: ELENO SPENCER JR ACCONT #: [id number] Conf# : [id number]/DID#: [id number] Authenticated by Ismael Julio MD On 11/30/2020 02:30:08 PM at 1430 PATIENT NAME: ELENO SPENCER JR ACCONT #: [id number] Sgoc0101-43-82M73:36:00S.[id number] a ble for patient lxxdVGYEHIIOUXCDQL3623-63-71I68:30:44 2020-11-29 16:18:00 [id number]:18:087869-9 [address] [place] [address] PATIENT NAME: ELENO SPENCER JR ADMIT DATE: 11/22/20ACCOUNT NO: [id number] [facility] 70 REPORT TYPE: PROGRESS NOT E SEX: M ADMITTING PHYSICIAN:Guy Marcial MD ATTENDING PHYSICIAN:Guy Marcial MD DATE: 11/29/2020 SUBJECTIVE: Events noted. I discussed with nursing staff. Doing betteroverall. No ches t pain, no nausea, no other issues reported overnight. Discussed with his . OBJECTIVE:VITAL SIGNS: Blood pressure 140/80, heart rate of 70, and temperature 98.1.HEENT: Head is normocephalic.CHEST AND LUNGS: Bilateral breathing sounds.CARDIOVASCULAR: S1, S2.ABDOMEN: Soft.EXTREMITIES: No edema. PERTINENT FINDINGS: Chest x-ray showed atelectasis. ASSESSMENT AND PLAN:1. Acute hypoxemic respiratory failure, doing better. BiPAP at nighttime. , pulmonary service is following the patient.2. Left lower aspiration pneumonia, complete course of treatment. Dr. Hernandez, infectious diseas e following the patient. Culture report noted.3. Obesity. Weight loss is stressed with him, ____ diet.4. Congestive heart failure. Bee Keeper, Dr. Mcmanus following the patient. Continue the patient on diuresis. Overall stable. Continue the patient onamlodipine. Dictated By: Guy Marcial MD WT: PN:S.JEANNETTE/CLARISSA./NTSDD: 11/29/2020 16:18:51DT: 11/29/2020 16:50:52Conf#: [id number]/DID#: [id number] Authenticated by Guy Marcial MD On 11/30/2020 11:07:32 AM at 1107 PATIENT NAME: ELENO SPENCER JR ACCONT #: [id number] Vgvi1205-54-39I22:50:00S.[id number] a ble for patient mjrfEOGGHFUZUFQTLW1160-52-58I11:08:11 2020-11-29 04:28:00 [id number]:28:633648-2 003 [facility] [address] [place] [address] PATIENT NAME: ELENO SPENCER JR ADMIT DATE: 11/22/20ACCOUNT NO: [id number] ROOM NO: [facility] AGE: 70 REPORT TYPE: PROGRESS NOT E SEX: M ADMITTING PHYSICIAN:Guy Marcial MD ATTENDING PHYSICIAN:Guy Marcial MD DATE: INFECTIOUS DISEASE PROGRESS NOTE SUBJECTIVE: The patient appears to be comfortable at present time. Nurses noteno other issues from disease standpoint through the evening. All notes fromteam reviewed, read, acknowledged and understood. Discussed in detail with Dr.Samani denis s well as Dr. Issa. Remains on antibiotic holiday . Repeat blood andurine cultures so far are negative. Scans do not suggest any internal infectionat present time. No specific other issu e from infectious diseases standpoint ofconcern. Very high risk for infectious disease decompensation, so followingclosely, but so far so good on antibiotic holiday. OBJECTIVE:VITAL SIGNS: Temperature is 97 degrees, blood pressure 140/74, pulse 79 perminute and regular, respirations are 22 per minute.GENERAL: He is a well-developed, fairly well-nourished man who at present timeis in no acute distress.SKIN: No new visible lesions.NODES: None were palpable.HEENT: Has not changed.NECK: Supple without thyromegaly or lymphadenopathy.LUNGS: Fairly clear to auscultation and percussion.HEART: Regular rhyth m without murmurs, gallops, or rubs.ABDOMEN: Soft, nontender. No hepatosplenomegaly.EXTREMITIES: No clubbing, cyanosis, or significant edema.NEUROLOGIC: No specific new focal findings . LABORATORY DATA AVAILABLE: Has been reviewed. IMPRESSION: Stable from infectious diseases standpoint, no new major issuesnoted. RECOMMENDATIONS: Continuing as is on antibiotic holiday. High risk fordecompensation, following closely. We will adjust antimicrobial interventionsas data and clinical circumstances dictate. Dictated By: Ismael Julio Jr, MD WT: PN:S.HIM/SELINA/NTSDD: 11/29/2020 04:28:31 PATIEN T NAME: ELENO SPENCER ACCONT #: [id number] Conf#: [id number]/DID#: [id number] Authenticated by Ismael Julio MD On 11/29/2020 01:15:59 PM at 1316 PATIENT NAME: ELENO SPENCER JR ACCONT #: [id number] Dqcv8431-53-07C37:37:00S.[id number] a ble for patient gbdjWQKMARMOKCOAPP1601-90-80G20:16:40 2020-11-28 16:34:00 [id number]:34:969921-[address] [address] PATIENT NAME: ELENO SPENCER JR ADMIT DATE: 11/22/20ACCOUNT NO: [id number] ROOM NO: S[facility] AGE: 70 REPORT TYPE: PROGRESS NOT E SEX: M ADMITTING PHYSICIAN:Guy Marcial MD ATTENDING PHYSICIAN:Guy Marcial MD DATE: 11/28/2020 PROGRESS NOTE SUBJECTIVE: Events noted, doing better, moving the left upper extremity andlower extremity. No chest pain, no nausea. OBJECTIVE:VITAL SIGNS: Blood pressure 150/60, heart rate 80, temperature 98.8.HEENT: Head is normocephalic.CHEST AND LUNGS: Bilateral breathing sounds.CARDIOVASCULAR: S1, S2.ABDOMEN: Soft.EXTREMITIES: No edema. PERTINENT FINDINGS: Potassium 4.5. ASSESSMENT AND PLAN:1. Respirator y failure, improving. Continue the patient on BiPA P at nighttime. He is on supplemental oxygen. Dr. Issa, pulmonary service, is following thepatient.2. Subdural hematoma. He is seeing physical therapy. Left-sided weakness hasimproved.3. Obesity. Weight loss discussed with him. Advised him not to eat junk orfast foods. Discussed with in detail.4. Pneumonia, treated, stable. Dr. Ismael Julio, is following the patient. Culture report noted. Dictated By: Guy Marcial MD WT: PN:S.JEANNETTE/CLARISSA./NTSDD: 11/28/2020 16:34:23DT: 11/28/2020 17:59:55Conf#: [id number]/DID#: [id number] Authenticated by Guy Marcial MD On 11/29/2020 01:52:19 PM PATIENT NAME: ELENO SPENCER ACCONT #: [id number] at 1352 PATIENT NAME: ELENO SPENCER JR ACCONT #: [id number] Pkbp5428-63-77Q58:59:00S.[id number] a ble for patient awzvRAPVNUTBSNDPAI7162-86-15A19:53:01 2020-11-28 05:12:00 [id number]:12:738648-[address] [address] PATIENT NAME: ELENO SPENCER JR ADMIT DATE: 11/22/20ACCOUNT NO: [id number] ROOM NO: S.351 AGE: 70 REPORT TYPE: PROGRESS NOT E SEX: M ADMITTING PHYSICIAN:Guy Marcial MD ATTENDING PHYSICIAN:Guy Marcila MD DATE: 11/27/2020 PROGRESS NOTE SUBJECTIVE: Events reviewed. OBJECTIVE:VITAL SIGNS: Blood pressure and heart rate are stable.GENERAL: He is breathing on his own. In no distress. He is drowsy.NEUROLOGIC: Opens his eyes. Moving both upper and lower extremities, but weakon his left upper and lower. LABORATORY DATA AND MEDICATIONS : Reviewed. ASSESSMENT AND PLAN: He is a 70-year-old patient who is status post traumaticsubdural hematoma associated with left hemiparesis and status post craniectomy. He is mildly encephalopathic with mild left hemiparesis. Overall,neurologically stable. Continue present treatment. Dictated By: Garrick Xiao WT: PN:S.HIM/NUNOU/NTSDD: 11/28/2020 05:12:22DT: 11/28/2020 05:26:48Conf#: [id number]/DID#: [id number] Authenticated by Garrick Thompson MD On 11/30/2020 12:03:44 AM at 0003 PATIENT NAME: ELENO SPENCER JR ACCONT #: [id number] Bejp9817-98-83F86:26:00S.[id number] a ble for patient wnlxEJLSQRFMZUGPMD9194-32-69G72:04:11 2020-11-28 04:37:00 [id number]:37:630339-9 [address] [place] [address] PATIENT NAME: ELENO SPENCER JR ADMIT DATE: 11/22/20ACCOUNT NO: [id number] ROOM NO: S.351 AGE: 70 REPORT TYPE: PROGRESS NOT E SEX: M ADMITTING PHYSICIAN:Guy Marcial MD ATTENDING PHYSICIAN:Guy Marcial MD DATE: INFECTIOUS DISEASE PROGRESS NOTE SUBJECTIVE: The mental status overall has not changed. All notes have beenreviewed, read, acknowledged, and understood. All repeat cultures so far arenegative. No specific other new issues from infectious disease standpoint atthis juncture. Tolerating antibiotic holiday so far without difficulty. Repeatcultures so far are negative. I am going to follow closely for infectiousdisease deterioration, but so far so good on antibiotic holiday. We willcontinue to observe for now. No specific issues from infectious diseasestandpoin t through the evening have been delineated. All notes have beenreviewed, read, acknowledged, and understood. OBJECTIVE:VITAL SIGNS: Temperature i s 98 degrees, blood pressure 156/74, pulse 88 perminute and regular, respirations are 16 per minute.GENERAL: He is a well-developed, well-nourished man, who at present time is inno acute distress.SKIN: No visible lesions.NODES: None were palpable.HEENT: Has not changed.NECK: Supple.LUNGS: Scattered crackles and rhonchi.HEART: Regular rhythm without murmurs, gallops, or rubs.ABDOMEN: Soft, nontender. No hepatosplenomegaly.EXTREMITIES: No clubbing, cyanosis, or significant edema.NEUROLOGIC: The patient is at baseline. LABORATORY DATA AVAILABLE: Has been reviewed. IMPRESSION: Overal l stable from infectious diseases standpoint, no new majorissues noted. RECOMMENDATIONS: Continuing as is for now. No antibiotic changes are indicatedat present time. Remain vigilant fo r further nosocomial issues and adjustintervention s further as data and clinical circumstances dictate. Dictated By: Ismael Julio Jr, MD WT: PN:S.JEANNETTE/SELINA/BRAYDEN PATIENT NAME: ELENO SPENCER JR ACCONT #: [id number] DT: 11/28/2020 05:01:13Conf#: [id number]/DID#: [id number] Authenticated by Ismael Julio MD On 11/29/2020 01:15:58 PM at 1316 PATIENT NAME: ELENO SPENCER JR ACCONT #: [id number] Gbbi6782-20-85L55:01:00S.[id number] a ble for patient fklnLWMUJBJXYPKRIY9637-09-86U80:16:40 2020-11-27 12:52:00 [id number]:52:579904-0 059 [facility] [address] [place] [address] PATIENT NAME: JOHANNAELENORenetta Vallejo JR ADMIT DATE: 11/22/20ACCOUNT NO: [id number] ROOM NO: S.[facility] AGE: 70 REPORT TYPE: PROGRESS NOT E SEX: M ADMITTING PHYSICIAN:Guy Marcial MD ATTENDING PHYSICIAN:Guy Marcial MD DATE: 11/27/2020 PROGRESS NOTE SUBJECTIVE: Events note d and doing about the same. Resting. No chest pain , nonausea. No other issues reported overnight. Discussed with his . OBJECTIVE:VITAL SIGNS: Blood pressure 160/60, heart rate of 87, and temperature 97.8.HEENT: Head is normocephalic.CHEST AND LUNGS: Bilateral breathing sounds.HEART: Normal S1, S2.ABDOMEN: Soft.EXTREMITIES: No edema. PERTINENT FINDINGS:1 . Hemoglobin 9.52. Potassium 5.2. ASSESSMENT AND PLAN:1. Subdural hematoma with left hemiparesis. Doing better, seeing physicaltherapy. PT, OT following the patient.2. Hypertension, controlled. Cardiology, Dr. Mcmanus consulted. Continue thepatient on losartan 50 mg daily and amlodipine 10 mg daily.3. Seizure, controlled. Continue the patient on Dilantin 100 three times aday.4. Acute hypoxemic respiratory failure, BiPAP treatment at nighttime. , pulmonar y service is following the patient. Continue the patient onsupplemental oxygen, DuoNeb every 4 hours as needed. Dictated By: Guy Marcial MD WT: PN:S.JEANNETTE/CLARISSA./NTSDD: 11/27/2020 12:52:21DT: 11/27/2020 13:21:14Conf#: [id number]/DID#: [id number] Authenticated by Guy Marcial MD On 11/28/2020 02:13:28 PM PATIENT NAME : ELENO SPENCER JR ACCONT #: [id number] at 1413 PATIENT NAME: ELENO SPENCER JR ACCONT #: [id number] Fxyo6775-70-16G69:21:00S.[id number] a ble for patient kkjbXSHUMSPBSZCKXN3619-37-47R88:13:55 2020-11-27 11:16:00 [id number]:16:880945-[address] [address] PATIENT NAME: ELENO SPENCER JR ADMIT DATE: 11/22/20ACCOUNT NO: [id number] ROOM NO: S.351 AGE: 70 REPORT TYPE: PROGRESS NOT E SEX: M ADMITTING PHYSICIAN:Guy Marcial MD ATTENDING PHYSICIAN:Guy Marcial MD DATE: 11/27/2020 PULMONARY PROGRESS NOTE The patient was discussed with OK Tavares. SUBJECTIVE: The patient is a 70-year-old man with a history of seizures, onDilantin; hypertension; and hyperlipidemia that on 11/11/2020, fell hitting hishead for which he was taken, with an increasing headache and left-sidedhemiparesis, t o [facility]. The patient was found to have a subdural hematomarequiring evacuation and decompression secondary to a midline shift. Thepatient had to be intubated and mechanically ventilated. The patient is nowextubated. He has obstructive sleep apnea and he is on BiPAP. The patient wasquite sleepy because he was only usin g the BiPAP at night and during thedaytime, he was taking lots of naps. The patient has been placed now on BiPAPevery time he sleeps and his mental status has improved. The patient also hadan elevated ammonia level being treated with rifaximin and lactulose. He had anultrasound of the abdomen with elastography which was suggestive of cirrhosis. The patient may require to see a geothermal electrical engineer. PHYSICAL EXAMINATION:ZION L SIGNS: He has a temperature of 97.8, heart rate of 70, respiratory rateof 20, blood pressure is 163/86 and his pulse oximetry is 98% on room air.HEENT: Normocephalic, atraumatic. Pupils are equal and reactive.NECK: Supple. There is no JVD.CHEST: Clear to auscultation.CARDIOVASCULAR: S1, S2. No murmurs, gallop, or rub.ABDOMEN: Obes e and nontender.GENITOURINARY: No CVA tenderness.EXTREMITIES: There is no clubbing, cyanosis, or edema.NEUROLOGIC: The patient is awake, alert, oriented x3, and grossly nonfocal. LABORATORY DATA: He has a sodium of 138, potassium of 5.2, chloride of 107, CO2is 25, glucose is 119, BUN is 17, creatinine is 0.9, total protein is 6.9,albumin is 3.9, calcium is 8.8, and bilirubin is 0.2. SGOT is 61, SGPT is 80,and alkaline phosphatase is 175. White count is 12.7 with hemoglobin andhematocrit of 9.5 and 28.9 with 561,000 platelets. ASA for chronic hepatitis Cwas nonreactive. DIAGNOSTIC IMPRESSION:1. Respiratory failure with hypoxemia that has gotten better. PATIENT NAME: ELENO SPENCER JR [facility] #: [id number] 2. Obstructive sleep apnea, on BiPAP every time he sleeps.3. Left lower lobe infiltrate consistent with pneumonia, treated with cefepime.4. Mild vascular congestion on chest x-ray. The patient' s chest is clear toauscultation today.5. Altered mental status, which is multifactorial secondary to subduralhematoma, hepatic encephalopathy. The patient was given rifaximin andlactulose. He is much more awake. The patient would benefit from having ahepatology consult. He had an ultrasound of the right upper quadrant withelastography, which showed measures consistent with cirrhosis.6. Obesity. The patient has been encouraged to lose weight.7. Diabetes. The patient is on Levemir and an insulin sliding scale.8. For peptic ulcer disease prophylaxis, arielle jamil is on Protonix. For deep venousthrombosis prophylaxis, he is on sequential compression devices. Fordepression, he is on Effexor. For seizure disorder, he is on primidone andDilantin . Hypertension stubbs, he is on losartan, Norvasc, and propranolol.9. Hyperkalemia. The patient sunni silva be getting Kayexalate today and if itpersists or recurs, he has 2 drugs that can cause hyperkalemia, which arelosartan and propranolol and this may need to be changed. The patient sunni silva befollowed closely. Dictated By: Danna Glynn WT: PN:S.JEANNETTE/SRINIVAS/BRAYDENDD: 11/27/2020 11:16:28DT: 11/27/2020 12:01:31Conf#: [id number]/DID#: [id number] Authenticated by Estevan Issa MD On 11/27/2020 12:05:28 PM at 1205 PATIENT NAME: ELENO SPENCER JR ACCONT #: [id number] Fvzk0104-67-75I97:01:00S.[id number] a ble for patient ymxiQKDWDAJISYMOCY2992-60-85U13:06:06 2020-11-27 04:16:00 [id number]:16:083950-[address] [address] PATIENT NAME: ELENO SPENCER JR ADMIT DATE: 11/22/20ACCOUNT NO: [id number] ROOM NO: S.351 AGE: 70 REPORT TYPE: PROGRESS NOT E SEX: M ADMITTING PHYSICIAN:Guy Marcial MD ATTENDING PHYSICIAN:Guy Marcial MD DATE: INFECTIOUS DISEASE PROGRESS NOTE SUBJECTIVE: The patient's mental status overall has not changed for the mostpart. All notes have been reviewed from team, read, acknowledged andunderstood. Discussed in detail with Dr. Marcial as well as Dr. Issa is onantibiotic holiday. Urine and blood cultures so far are negative. CT scan ofth e chest is not impressive as an active infection. Some mild patchyground-glass densities are noted , which may be suggestive of developinginfiltrate on evaluation not clinically have pneumonia is going to observe onantibiotic holiday at present time. Try to find the abdomen and pelvis CAT scanthat I ordered also. All notes have been reviewed, read, acknowledged andunderstood. Discussed in detail with nursing personnel at bedside on the nightshift, not noted any specifi c infectious disease problems delineated. OBJECTIVE:VITAL SIGNS: Temperature 98 degrees, blood pressure 163/86, pulse 68 per minuteand regular, respirations are 24 per minute.GENERAL: He is a well-developed, well-nourished man, in mild respiratorydistress.SKIN: No new visible lesions.NODES: None were palpable.HEENT: Has not changed.NECK: Supple.LUNGS: Decreased breath sounds in the bases.HEART: Regular rhythm withou t murmurs, gallops, or rubs.ABDOMEN: Soft, nontender. No hepatosplenomegaly, no rebound or rigidity.EXTREMITIES: No clubbing, cyanosis, or significant edema.NEUROLOGIC: The patient is at his baseline since I have seen him here. LABORATORY DATA AVAILABLE: Has been reviewed. IMPRESSION: Stable from infectious diseases standpoint, no new major issuesnoted. RECOMMENDATIONS: Continuing as is for now, on antibiotic holiday. Follow up onculture reports. Risk for deterioration from infectious diseases standpointexist, so following closely. We will adjust antimicrobial agents andinterventions as data and clinical circumstances dictate. PATIENT NAME: ELENO SPENCER JR ACCONT #: [id number] Dictated By: Ismael Julio Jr, MD WT: PN:S.JEANNETTE/SELINA/NTSDD: 11/27/2020 04:16:00DT: 11/27/2020 06:09:40Conf#: [id number]/DID#: [id number] Authenticated by Ismael Julio MD On 01:15:57 PM at 1316 PATIENT NAME: ELENO SPENCER JR ACCONT #: [id number] Eipb2698-51-76V09:09:00S.[id number] a ble for patient cixbNKFGMDODTYRFDA1007-18-17D64:16:39 2020-11-26 13:41:00 [id number]:41:563267-[address] [address] PATIENT NAME: ELENO SPENCER JR ADMIT DATE: 11/22/20ACCOUNT NO: [id number] ROOM NO: S.[facility] AGE: 70 REPORT TYPE: PROGRESS NOT E SEX: M ADMITTING PHYSICIAN:Guy Marcial MD ATTENDING PHYSICIAN:Guy Marcial MD DATE: 11/26/2020 PROGRESS NOTE SUBJECTIVE: Events noted. Doing about the same, awake and responsive. Nochest pain, no nausea, no other issues reported overnight. Discussed with . OBJECTIVE:VITAL SIGNS: Blood pressure 140/70, heart rate of 80, temperature 97.3,respiratory rate 17.HEENT: Head is normocephalic.NECK: Trached.CHEST AND LUNGS: Bilateral breathing sounds.CARDIOVASCULAR: S1, S2.ABDOMEN: Soft.EXTREMITIES: No edema. ASSESSMENT AND PLAN:1. Subdural hematoma. The patient has left hemiparesis. Continue physicaltherapy. Neurology, Dr. Thompson, is following the patient.2. Coronary artery disease , stable. Continue the patient on amlodipine andatorvastatin. Dr. Mcmanus of cardiology inpu t noted.3. Debility. PT, OT, fall precaution. PM and R service is following thepatient.4. Diabete s mellitus type 2. Continue the patient on Lantus 10 units atnighttime. The patient remains on sliding scale insulin. We will continue tomonito r blood sugar a.c. and at bedtime. Dictated By: Guy Marcial MD WT: PN:S.JEANNETTE/CLARISSA./NTSDD: 11/26/2020 13:41:10DT: 11/26/2020 14:10:38Conf#: [id number]/DID#: [id number] Authenticated by Guy Marcial MD On 11/28/2020 02:13:25 PM PATIENT NAME: JOHANNAELENORenetta Vallejo JR ACCONT #: [id number] at 1413 PATIENT NAME: JOHANNAELENORenetta Vallejo JR ACCONT #: [id number] Yjna5766-37-00G03:10:00S.[id number] a ble for patient yfhmMTCGQUNEBBCKGC5055-71-81D00:13:55 2020-11-26 10:43:00 [id number]:43:871137-[address] [address] PATIENT NAME: ELENO SPENCER Kati FRANKLIN ADMIT DATE: 11/22/20ACCOUNT NO: [id number] ROOM NO: S.[facility] AGE: 70 REPORT TYPE: PROGRESS NOT E SEX: M ADMITTING PHYSICIAN:Guy Marcial MD ATTENDING PHYSICIAN:Guy Marcial MD DATE: 11/26/2020 PULMONARY PROGRESS NOTE The patient was discussed with OK Tavares. SUBJECTIVE: The patient is a 70-year-old man with a history of seizures, onDilantin, hypertension, hyperlipidemia that on 11/11/2020, fell, hitting hishead and was taken to the hospital with increasing headaches and left-sidedweakness. The patient was found to have a subdural hematoma with a brainmidline shift. He was taken to the O R for evacuation and decompression. Thepatient was intubated and mechanically ventilated. The patient is nowextubated, but he has obstructive sleep apnea and he is on BiPAP. The patientalso had high ammonia. An ultrasound of the liver wit h elastography was doneand the study was very suggestive of cirrhosis. The patient is now on rifaximinand lactulose and he is much more awake . OBJECTIVE:VITAL SIGNS: He has a temperature of 98.4, heart rate is 80, respiratory rateis 20, blood pressure is 148/70 and he has a pulse oximetry of 98% on 3 L vianasal cannula.HEENT: Normocephalic and atraumatic. The patient has a scar from hiscraniotomy. Pupils are equal.NECK: Very short. Mallampati stage III in his throat.CHEST: Clear to auscultation.CARDIOVASCULAR: S1, S2. No murmurs, gallop, or rub.ABDOMEN: Bowel sounds are positive. Soft, obese, and nontender.GENITOURINARY: No CVA tenderness.EXTREMITIES: There is no clubbing, cyanosis, or edema.NEUROLOGIC: The patient is awake, alert, and he is oriented x3 at the presenttime. LABORATORY DATA: There is no lab data for today. DIAGNOSTIC IMPRESSION:1. Respiratory failure with hypoxemia, on O2. The patient is taking deeperbreaths.2. Obstructive sleep apnea. The patient is on BiPAP at night an d he is doingbetter now that he is not sleep deprived.3. Left lower lobe infiltrate consisten t with pneumonia, being treated withcefepime. PATIENT NAME: ELENO SPENCER [facility] #: [id number] 4. Mild vascular congestion.5. Altered mental status, multifactorial, including post-subdural hematoma andhepatic encephalopathy along with depredation of these things are beingaddressed and the patient is much more awak e and alert.6. Obesity. The patient has been encouraged to lose weight. He may have afatty liver causing the findings on his ultrasound.7. Diabetes. The patient is on Levemir and insulin sliding scale.8. Peptic ulcer disease prophylaxis. He is on Protonix.9. Deep venous thrombosis prophylaxis. He is on sequential compressiondevices.10. Depression. He is on Effexor.11. Seizure disorder. The patient is on primidone and Dilantin.12. Hypertension. He is o n Norvasc, losartan, and propranolol. The patient is seriously ill and he will be followed very closely in the unit. Dictated By: River Issa MD WT: PN:S.JEANNETTE/SRINIVAS/NTSDD: 11/26/2020 10:43:18DT: 11/26/2020 11:14:56Conf#: [id number]/DID#: [id number] Authenticated by Meagan Issa MD On 11/26/2020 12:34:35 PM at 1234 PATIENT NAME: ELENO SPENCER JR ACCONT #: [id number] [id number]:14:00S.[id number] a ble for patient loroRCGKMOUSELHPWD9600-35-04Z05:34:57 2020-11-26 08:20:00 [id number]:20:[id number] 021 [facility] [address] [place] [address] PATIENT NAME: ELENO SPENCER ADMIT DATE: 11/22/20ACCOUNT NO: [id number] ROOM NO: S.351 AGE: 70 REPORT TYPE: CONSULTATIO N SEX: M ADMITTING PHYSICIAN:Guy Marcial MD ATTENDING PHYSICIAN:Guy Marcial MD CONSULTATION DATE: 11/25/2020 CONSULTING PHYSICIAN: Garrick Xiao NEUROLOGY CONSULTATION ATTENDING PHYSICIAN: Guy Marcial MD. CONSULTING PHYSICIAN: Garrick Thompson MD. REASON FOR CONSULTATION: Management of seizure disorder. HISTORY OF PRESENT ILLNESS: He is a 70-year-old patient who at present is verydrowsy. Informatio n is from his chart. On 11/11/2020 [facility] fell and [facility] with headaches and left-sided weakness. He wasfound t o have right subdural hematoma and had craniectomy and evacuation ofhematoma. He developed seizures and is on Dilantin. PAST MEDICAL HISTORY: Significant for diabetes with diabetic neuropathy. PHYSICAL EXAMINATION:VITAL SIGNS: Hi s vital signs are stable. He is breathing on his owncomfortably.NEUROLOGIC: He is drowsy. His pupils are 3 mm. He moves all extremitiesspontaneously. LABORATORY DATA: Reviewed. MEDICATIONS: Reviewed. ASSESSMENT AND PLAN: He is status post fall with traumatic subdural hematomaand craniectomy. He has history of seizures and diabetic neuropathy. He iscurrently on Dilantin. We will check a Dilanti n level. Continue presenttreatment. Thank you very much for this neurology consultation. We will follow. Dictated By: Garrick Xiao WT: CON:S.JEANNETTE/RIKKI/NTSDD: 11/26/2020 08:20:47 PATIENT NAME: ELENO SPENCER JR ACCONT #: [id number] Conf#: [id number]/DID#: [id number] Authenticated by Garrick Thompson MD On 11/26/2020 10:58:43 PM at 9260 PATIENT NAME: ELENO SPENCER JR ACCONT #: [id number]:30:00S.H I [id number] for patient nsodYBQZQPXJEAOFRL6123-76-24I06:59:24 2020-11-26 04:18:00 [id number]:18:[id number] [address] PATIENT NAME: ELENO SPENCER JR ADMIT DATE: 11/22/20ACCOUNT NO: [id number] ROOM NO: S.[facility] AGE: 70 REPORT TYPE: PROGRESS NOT E SEX: M ADMITTING PHYSICIAN:Guy Marcial MD ATTENDING PHYSICIAN:Guy Marcial MD DATE: INFECTIOUS DISEASE PROGRESS NOTE SUBJECTIVE: The patient's mental status overall has not changed. All notesfrom team reviewed, read, acknowledged and understood. Discussed in detail withDr. Marcial as well as Dr. Issa. Nurses note no untoward issues from infectiousdisease standpoin t through the evening. Urine and blood cultures ar e inprogress, which is so far negative. We ordered CT scan of chest, abdomen, andpelvis yesterday passing for him. It has not been accomplished ye t for reasonsnot entirely clear, will try to get the orders carried out in some timelyfashion. Al l other notes have been reviewed, read, acknowledged and understood. Echocardiogram look s okay also. OBJECTIVE:VITAL SIGNS: Temperature 97 degrees, blood pressure 130/64, pulse 72 per minuteand regular, respirations are 24 per minute.GENERAL: He is a well-developed, fairly well-nourished man, in mild respiratorydistress.SKIN: No visible lesions.NODES: None were palpable.HEENT: Has not changed.NECK: Supple without thyromegaly or lymphadenopathy.LUNGS: Scattered crackles and rhonchi.HEART: Regular rhythm without murmurs, gallops, or rubs.ABDOMEN: Soft, nontender. No hepatosplenomegaly. Slightly distended.EXTREMITIES: No clubbing, cyanosis, or significant edema.NEUROLOGIC: The patient is at baseline. LABORATORY DATA AVAILABLE: Has been reviewed. IMPRESSION: Overall about the same fro m infectious diseases standpoint, remainsafebrile on antibiotic holiday. RECOMMENDATIONS: Follow u p on CAT scan reports. Continue present supportivecare. We will adjust antimicrobial agents and interventions as data andclinical circumstances dictate. Dictated By: Ismael Julio Jr, MD WT: PN:S.JEANNETTE/SELINA/NTS PATIENT NAME : ELENO SPENCER JR ACCONT #: [id number] DT: 11/26/2020 04:42:18Conf#: [id number]/DID#: [id number] Authenticated by Ismael Julio MD On 11/29/2020 01:15:56 PM at 1316 PATIENT NAME: DANICA SPENCER JR ACCONT #: [id number] Ouke1392-30-11Z53:42:00S.[id number] a ble for patient gatyRDLYSEYOFQDLUS9954-16-46W26:16:39 2020-11-25 17:01:00 [id number]:01:839453-[address] [address] PATIENT NAME: ELENO SPENCER JR ADMIT DATE: 11/22/20ACCOUNT NO: [id number] ROOM NO: [facility] AGE: 70 REPORT TYPE: PROGRESS NOT E SEX: M ADMITTING PHYSICIAN:Guy Marcial MD ATTENDING PHYSICIAN:Guy Marcial MD DATE: 11/25/2020 PROGRESS NOTE SUBJECTIVE: Events noted, doing better. Tolerated BiPAP treatment last night. No fever, no nausea, no other issues reported overnight. Discussed with nursingstaff at the bedside. OBJECTIVE:VITAL SIGNS: Blood pressure is 154/60, heart rate of 80, and temperature is98.6.HEENT: Head is normocephalic.CHEST AND LUNGS: Bilateral breathing sounds.HEART: Normal S1, S2.ABDOMEN: Soft.EXTREMITIES: No edema. PERTINENT FINDINGS:1 . Hemoglobin 9.7.2. WBC 14.9.3. Potassium 4.6. ASSESSMENT AND PLAN:1. Subdural hematoma. The patient had left-sided hemiparesis, continue withphysical therapy.2. Respiratory failure. The patient has been tolerating BiPAP treatment atnighttime. Continue the patient on Aricept. Continue the patient withsupplemental oxygen during the daytime. Continue the patient on DuoNeb every 4hours as needed. Dr. Issa, pulmonary service, is following the patient.3. Seizure, controlled. Continue the patient on Dilantin 100 three times aday. The patient remains on seizure precaution.4. Debility. PT, O T and fall precautions. Dictated By: Guy Marcial MD WT: PN:S.JEANNETTE/CLARISSA./NTSDD: 11/25/2020 17:01:44DT: 11/25/2020 21:01:16Conf#: [id number]/DID#: [id number] PATIENT NAME: DANICA SPENCER ACCONT #: [id number] Authenticated by Guy Marcial MD On 11/28/2020 02:13:24 PM at 1413 PATIENT NAME: ELENO SPENCER JR ACCONT #: [id number] Wkcc9463-01-57U30:01:00S.[id number] a ble for patient hvscIGXILVOGKDVCVT4916-70-25F83:13:54 2020-11-25 09:53:00 [id number]:53:050567-[address] [address]BTZECYK NAME: ELENO SPENCER JR ADMIT DATE: 11/22/20ACCOUNT NO: [id number] ROOM NO: AGE: 70 REPORT TYPE: eECHOCARDIOGRAM REPORT SEX: M ADMITTING PHYSICIAN: ATTENDING PHYSICIAN: Guy Marcial MD *[facility]*[address] [place] [address]Faess Transthoracic Echocardiogram Patient: Eleno Spencer GStudy Date: 11/24/2020 BP: 146 / 78 [id number] 1950 Age: 70 Height: 65 in / 165.1 cmAccession#: [id number] Gender: M Weight: 248.5 lb / 112.9 kgBMI/BSA: 41.4 kg/m 2 / 2.17 m 2 *[place] Physician: * Juan Mcmanus M.D. *Interpreting Physician: * Juan Mcmanus M.D.*Assistant Shift Supervisor: * Debby Little - Indications: CHF. - Study data: Transthoracic echocardiogram. Procedure:Transthoracic echocardiography was performed. Images were obtainedusing a Needium Vivid 4 cardiac ultrasound machine. Complete 2D,complete spectral Doppler, and color Doppler. Location: Bedside.Patient status: Inpatient. Patient room number: 351. Studystatus: Routine. - Findings Left ventricle: The cavity size is normal. Wall thickness isnormal. Systolic function is normal. The estimated ejectionfraction is 55-60%. Wall motion is normal; there are no regionalwall motion abnormalities. Doppler parameters are consistent withabnormal left ventricular relaxation (grade 1 diastolic PATIENT NAME: ELENO SPENCER dysfunction).Right ventricle: The cavity size is normal. Systolic function isnormal.Left atrium: The atrium is normal in size.Right atrium: The atrium is sanjay l in size.Aorta: Aortic root: The aortic root is normal in size.Aortic valve: The valve is trileaflet. The leaflets aremoderately calcified . The findings are consistent with mildstenosis. There is no regurgitation.Mitral valve: The valv e is structurally normal. There is noevidence of stenosis. There is no regurgitation.Tricuspid valve: The valve is structurally normal. There i s noregurgitation.Pulmonic valve: The valve is structurally normal. There is noregurgitation.Pericardium: There is no pericardial effusion.Pulmonary arteries:The main pulmonary artery is normal-sized.Systemic veins:Inferior vena cava: The vessel is normal i n size. - Measurements Left ventricle Value Ref SAIMA, LAX 2.3 cm 4.2 - 5.8 ESD, LAX 1.6 cm 2.5 - 4.0 ESD/bsa, LAX 0.7 cm/m 2 1.3 - 2.1 FS, LAX 30 % 25 - 43 ESD 1.6 cm 2.5 - 4.0 ESD/bs a 0.7 cm/m 2 1.3 - 2.1 FS 30 % 25 - 43 PW, ED 1.9 cm 0.6 - 1.0 PW, ES 2.1 cm IVS/PW, ED 1.07 EF 60 % 52 - 72 EF, SMM Teich. 6 0 % >=55 E', lat mihaela, TDI 7.2 cm/sec >=10.0 E/e', lat mihaela, 7 TDI E', med mihaela, TDI 5.4 cm/sec >=7.0 E/e', med mihaela, 9 TDI E', avg, TDI 6.3 cm/sec E/e', avg, TDI 8 <=14 LVOT Value Ref Diam, S 1.50 cm Area 1.8 cm 2 Peak taylor, S 1.13 m/sec Mean taylor, S 0.78 m/sec VTI , S 24.2 cm Peak grad, S 5 mm Hg Mean grad, S 3 mm Hg PATIENT NAME: ELENO SPENCER JR SV 43 ml SV/bsa 20 ml/m 2 Ventricular septum Value Ref IVS, E D 2.0 cm 0.6 - 1.0 IVS, ES 2.1 cm Right ventricle Value Ref SAIMA, LAX 3.1 cm SAIMA 3.1 cm Pressure, S 36 mm Hg Left atrium Value Ref LA ID 2.7 cm AP dim, ES 2.73 cm 3.00 - 4.00 AP dim ES, LAX 2.7 cm 3.0 - 4.0 SI dim ES, LAX 2.7 cm Vol, ES, 2-p 49 ml Vol/bsa , ES, 2-p 23 ml/m 2 16 - [...] 0.88 cm 2 LVOT/AV, Vpeak 0.47 ratio CAHNDA, Vmax 0.74 cm 2 Mitral valve Value [...] grad, 26 mm Hg PATIENT NAME: ELENO SPENCER S Aortic root Value Ref Root diam 3.2 cm <4.3 Root diam, ED MM 2.73 cm Ascending aorta Value Ref AAo AP diam , S 3.7 cm AAo AP diam/bsa, 1.7 cm/m 2 S Pulmonary artery Value Ref Pressure, S 27.4 mm Hg Systemic veins Value Ref Estimated CVP 10 mm Hg - Conclusions Summary: 1. Left ventricle: The cavity size is normal. Wall thickness is normal. Systolic function is normal . The estimated ejection fraction is 55-60%. Wall motion is normal; there are no regional wall motion abnormalities. Doppler parameters are consistent with abnormal left ventricular relaxation (grade 1 diastolic dysfunction).2. Aortic valve: The findings are consistent with mild stenosis. Prepared and electronically steve d by Juan Mcmanus M.D.11/25/2020 09:52 Electronically Signed by MD toña Toledo n 11/25/20 at 0953 PATIENT NAME: ELENO SPENCER JR :53: 0 0P.[id number] for patient bycvAHWMKNEQKRJXJM8755-09-81Z81:53:31 2020-11-25 04:29:00 [id number]:29:442047-[address] [address] PATIENT NAME: ELENO SPENCER JR ADMIT DATE: 11/22/20ACCOUNT NO: [id number] ROOM NO: [facility] AGE: 70 REPORT TYPE: PROGRESS NOT E SEX: M ADMITTING PHYSICIAN:Guy Marcial MD ATTENDING PHYSICIAN:Guy Marcial MD DATE: INFECTIOUS DISEASE PROGRESS NOTE SUBJECTIVE: The patient is alert and attentive, indicates he is comfortable atpresent time. I have ordered urine culture now for several days. It has notbeen accomplished, so I have to order it again. He is on antibiotic holiday atthis juncture. We will g o ahead and get a CT scan of chest, abdomen, and pelvisto make sure we are not missing any cryptogenic issues. Dr. Isas ordered anultrasound of the liver, which showed possible cirrhosis but the reading was notclear and I sunni l go ahead and get a CAT scan of the abdomen to tr y tocorroborate whether or not there is anything that looks like active cirrhosisand we will orde r hepatitis C antibody also. All notes have been reviewed,read, acknowledged and understood from the team. Remains on antibiotic holidayfor the time being unless definable infection is clearly noted. Discussed indetail with Dr. Marcial as wel l as Dr. Issa. No specific other new issues arenoted from infectious diseases standpoint, through the evening shift. Discussedwith nursing personnel. OBJECTIVE:VITAL SIGNS: Temperature is 97 degrees, blood pressure 159/86, pulse 86 perminute and regular, respiratory rate 21 per minute.GENERAL: He is a well-developed, well-nourished man, in no acute distress.SKIN: N o new visible lesions.NODES: None were palpable.HEENT: Has not changed.NECK: Supple.LUNGS: Scattered crackles and rhonchi.HEART: Regular rhythm without murmurs, gallops, or rubs.ABDOMEN: Distended, soft, nontender. I cannot feel liver or spleen tip.EXTREMITIES: No clubbing, cyanosis, or significant edema.NEUROLOGIC: The patient is at baseline. LABORATORY DATA AVAILABLE: Has been reviewed. IMPRESSION: Overall stable from infectious disease standpoint, on antibioticholiday. Very high risk for nosocomial infections and infectious diseasedecompensation. RECOMMENDATIONS: CT scan of chest, abdomen, and pelvis will be performed. Remains on antibiotic holiday unless definable infection is noted. We will PATIENT NAME: ELENO SPENCER JR ACCONT #: [id number] adjust antimicrobial agents at that juncture as data and clinical circumstancesdictate. Dictated By: Ismael jamil Jr, MD WT: PN:S.JEANNETTE/SELINA/NTSDD: 11/25/2020 04:29:20DT: 11/25/2020 04:54:34Conf#: [id number]/DID#: [id number] Authenticated by Ismael Julio MD On 11/25/2020 12:37:46 PM at 1238 PATIENT NAME: ELENO SPENCER JR ACCONT #: [id number] Gieh0935-49-95Y77:54:00S.[id number] a ble for patient qvlhHUGUEHNTPXZMXT9967-40-48Q89:38:11 2020-11-24 19:57:00 [id number]:57:917278-3 038 [facility] [address] [place] [address] PATIENT NAME: ELENO SPENCER JR ADMIT DATE: 11/22/20ACCOUNT NO: [id number] ROOM NO: [facility] AGE: 70 REPORT TYPE: PROGRESS NOT E SEX: M ADMITTING PHYSICIAN:Guy Marcial MD ATTENDING PHYSICIAN:Guy Marcial MD DATE: 11/24/2020 PROGRESS NOTE SUBJECTIVE: Events noted. Discussed with nursing staff. Doing better.Slightly weak but much improved. The patient tolerated BiPAP last night. OBJECTIVE:VITAL SIGNS: Blood pressure 130/70, heart rate of 80, and temperature 97.7.HEENT: Head is normocephalic.CHEST AND LUNGS: Bilateral breathing sounds.HEART: Normal S1, S2.ABDOMEN: Soft.EXTREMITIES: No edema. PERTINENT FINDINGS:1 . Hemoglobin 9.7.3. Potassium 4.6. ASSESSMENT AND PLAN:1. Acute hypoxemic respiratory failure. The patient tolerated BiPAP atnighttime. . Dr. Issa , Pulmonary service, is following the patient.2. Sepsis with pneumonia. Dr. Julio is following th e patient. The patientis on cefepime.3. Subdural hematoma. s/p carniotomy, doing better. The patient has left sided hemiparesis. Dictated By: Guy Mracial MD WT: PN:S.JEANNETTE/CLARISSA./NTSDD: 11/24/2020 19:57:47DT: 11/24/2020 22:30:16Conf#: [id number]/DID#: [id number] Authenticated and Edited by Guy Marcial MD On 11/25/20 2:32:20 PM at 1436 PATIENT NAME: ELENO SPENCER JR ACCONT #: [id number] Ajxe1380-28-39R98:30:00S.[id number] a ble for patient sucfZFWUYIAGHGNKTK6894-74-21D98:36:11 2020-11-24 04:24:00 [id number]:24:421401-[address] [address] PATIENT NAME: ELENO SPENCER JR ADMIT DATE: 11/22/20ACCOUNT NO: [id number] ROOM NO: S.351 AGE: 70 REPORT TYPE: PROGRESS NOT E SEX: M ADMITTING PHYSICIAN:Guy Marcial MD ATTENDING PHYSICIAN:Guy Marcial MD DATE: INFECTIOUS DISEASE PROGRESS NOTE SUBJECTIVE: I a m in a possession of at least a few notes from the pasthospitalization, it shares he is a 70-year-old man with history of seizuredisorder, on Dilantin, hypertension, and hyperlipidemia, who fell on 11/12/2020nd was found to have a blossoming subdural hematoma with mass effect an d takenemergently to the OR for craniotomy, subdural evacuation, requiring intubation,mechanical ventilation on 11/12/2020 and extubated on 11/13/2020. As best I cantell, his course was felt to be nominal from the neurosurgery team. He doeshave an x-ray that suggested bilateral lower lobe airspace opacitie s compatiblefor possible aspiration pneumonia and a nodule in the right apex, 2 to 5 mm. Icannot fin d any positive cultures. I still do not have any clear reason why thepatient was transferred on Maxipime, unless it has something to do with theaspiration pneumonia. He had a CTA of the nec k that does not appear to beimpressive at present time and I am assuming the patient is transferre d here forhis rehabilitation. Again, he is alert and attentive, a bit amnestic for allthe things that I have mentioned. I do not know if he is fa r from the baselinemental status that he was prior to the fall. He is cooperative, alert andattentive. There are no high-spiking fevers, or chills, and I cannot findanything that looks like an active infectious disease problem at present time. Therefore, I am going to stop his antibiotics at this juncture and follow serialcultures at this point unless there is raudel e other information someone can findthat would suggest why the patient needs to remain on cefepime at this juncture. OBJECTIVE:VITAL SIGNS : Temperature is 98 degrees, blood pressure 132/71 , pulse 73 perminute and regular, respirations are 16 per minute.GENERAL: He is a well-developed, fairly well-nourished man, who at present timeis in no acute distress.SKIN: No other new visible lesions.NODES: None were palpable.HEENT: Has not changed.NECK: Supple without thyromegaly or lymphadenopathy.LUNGS: Fairly clear to auscultation and percussion.HEART: Regular rate and rhythm without murmurs, gallops, or rubs.ABDOMEN: Soft, nontender. No hepatosplenomegaly.EXTREMITIES: No clubbing, cyanosis, or significant edema.NEUROLOGIC: The patient is alert and attentive. No specific foca l findings. Again, not sure what his baseline is. PATIENT NAME: ELENO SPENCER JR ACCONT #: [id number] IMPRESSION: Looks like the biggest issue is subdural hematoma requiring masseffect, requiring evacuation on 11/11, intubated for a 24-hour period of time,then extubated. It looks like he has had a nominal course as best I can tellfrom the paucity of notes that accompany the patient, but nothing to suggest anactive infectious disease problems at this juncture. RECOMMENDATIONS: Antibiotic holiday will ensue a t present time. We willcontinue present supportive care and adjust antimicrobial interventions as dataand clinical circumstances dictate. Dictated By: Ismael Julio Jr, MD WT: PN:S.JEANNETTE/SELINA/NTSDD: 11/24/2020 04:24:40DT: 11/24/2020 04:47:30Conf#: [id number]/DID#: [id number] Authenticated by Ismael Julio MD On 02:15:19 PM at 1415 PATIENT NAME: ELENO SPENCER Kati FRANKLIN ACCONT #: [id number] Lobn7915-21-34W88:47:00S.[id number] a ble for patient xfepWNIXHAGNRZMARK3837-86-71V27:15:55 2020-11-23 17:36:00 [id number]:36:951274-[address] [address] PATIENT NAME: DANICA SPENCERRenetta Vallejo JR ADMIT DATE: 11/22/20ACCOUNT NO: [id number] [facility] 70 REPORT TYPE: HISTORY AND PHYSICAL SEX: M ADMITTING PHYSICIAN:Guy Marcial MD ATTENDING PHYSICIAN:Guy Marcial MD [facility] DATE: 11/22/2020 REASON FOR ADMISSION: Subdural hematoma. HISTORY OF PRESENT ILLNESS: The patien t is a 73-year-old male with past medicalhistory significant for status post fall, subdural hematoma, diabetes,hypertension, hyperlipidemia, and obesity. The patient lives in [place], [place]. The patient had a fall, presented to [facility] in [facility]. The patient has a craniotomy and hematoma evacuation. Course of hospitalizationwas uneventful. The patient was treated for pneumonia. [facility]. He is awake andresponsive. is present at the bedside. PAST MEDICAL HISTORY: As I mentioned above. PAST SURGICAL HISTORY: Craniotomy. REVIEW OF SYSTEMS: As history of present illness, 12-point review otherwisenegative, if not mentioned. ALLERGIES: PENICILLIN. HOME MEDICATIONS: Transfer MAR reconciled. PHYSICAL EXAMINATION:GENERAL: The patient is known to our service.CURRENT VITAL SIGNS: Blood pressure ____ , heart rate of 80, and hjmhmlsddza84.4.HEENT: Headeel d is normocephalic.CHEST AND LUNGS: Bilateral breathing sounds.HEART: Normal S1 and S2.ABDOMEN : Soft.EXTREMITIES: No edema. PERTINENT FINDINGS:1 . Potassium 4.6.2. AST 48.3. ALT 58.4. INR 1.1.5. Hemoglobin 9.7. WBC 17. PATIENT NAME: ELENO SPENCER JR [facility] #: [id number] ASSESSMENT AND PLAN:1. Subdural hematoma, status post craniotomy. Doing well, alert andresponsive . Continue physical therapy. The patient has left sided weakness.2. Sepsis. Dr. Julio for infectious disease following the patient. Continuethe patient on vancomycin, cefepime 1 g every 8 hours. Culture report is inprogress.3. Seizure prophylaxis. The patient is on Dilantin 100 three times a day. Abhi check Dilantin level. Neurology, Dr. Thompson consulted.4. Hypertension, controlled. Continue the patient o n losartan 50 mg daily. Dictated By: Guy Marcial MD WT: HP:S.JEANNETTE/CLARISSA./NTSDD: 11/23/2020 17:36:50DT: 11/23/2020 22:54:11Conf#: [id number]/DID#: [id number] by Guy Rodrigez i, MD On 11/24/2020 10:01:06 AM at 1001 PATIENT NAME: ELENO SPENCER JR ACCONT #: [id number] and physical [id number]:54:00S.[id number] A VAvailable for patient [id number]:01:42 2020-11-23 12:06:00 [id number] [address] PATIENT NAME: ELENO SPENCER JR ADMIT DATE: 11/22/20ACCOUNT NO: [id number] [facility]GE[facility] 70 REPORT TYPE: CONSULTATIO N SEX: M ADMITTING PHYSICIAN:Guy Marcial MD ATTENDING PHYSICIAN:Guy Marcial MD CONSULTATIO N DATE: 11/23/2020 CONSULTING PHYSICIAN: River Issa MD PULMONARY AND CRITICAL CARE CONSULTATION The patient was seen from 9:30 a.m. to 10:15 a.m. A total of 45 minutes werespent taking care of the patient. The patient was discussed with OK Daniels. There are no medical records that were sent with the patient from [facility] to [facility]. There is very fe w information available to us and nosurgical reports, radiologic studies, etc. BRIEF HISTORY: The patient is a 70-year-old man that on 11/11 fell and wasadmitted to the hospital with increasing headaches and left-sided weakness. Thepatient was diagnosed with a right subdural hematoma. The patient had anevacuation; and from then on, it is unclear what happened. There is a notationthat on 04/10, he failed swallowing test , and then he passed it on the 13. The patient was transferred with orders to wear BiPAP; and when I went toexamine, he was sleepy, and he was obstructing. So, I have changed the order touse the BiPAP while sleeping whatever time it is of the day. PAST MEDICAL HISTORY: Diabetes with neuropathy and a history of seizuredisorder. PAS T SURGICAL HISTORY: Unable to obtain. MEDICATIONS: From the [facility] showed amlodipine, atorvastatin,cefepime, hydralazine, insulin, losartan, Dilantin, primidone, propranolol,Effexor and albuterol nebulization treatments. ALLERGIES: PENICILLIN. SOCIAL HISTORY: Unable to obtain, but the patient appears to be ; and hesaid, when I was questioning him, that he did not ever smoke, but he could notgive me much more information. FAMIL Y HISTORY: Unable to obtain. PAT[facility] NAME: [facility] JR [facility] [id number] REVIE W OF SYSTEMS: Unable to obtain. PHYSICAL EXAMINATION:VITAL SIGNS: He has a temperature of 98.1, a heart rate of 80, respiratory rateof 22, blood pressure is 155/76 and he has a pulse oximetry of 94% on nasalcannula.HEENT: Normocephalic. The patient has the surgical evacuation site. Pupilsreact to light.NECK: Supple, very short and thick. Throat is clear, and he has a Mallampati3.CHEST: Shallow breathing, otherwise clear to auscultation.CARDIOVASCULAR: S1, S2. No murmurs, gallop or rub.ABDOMEN: Bowel sounds are positive . Obese and nontender.GENITOURINARY: No CVA tenderness.EXTREMITIES: There is no clubbing, cyanosis or edema.NEUROLOGIC: The patient is arousable. He appears to be oriented x1, and hemoves all his extremities. LABORATORY DATA: Sodium is 138, potassium is 4.6, chloride is 107 , CO2 is 21,glucose is 108, BUN is 25, creatinine is 0.8, total protein is 5.7, albumin is3.6 and calcium is 7.8. Bilirubin is 0.3, SGOT 48, SGPT 58 and alkalinephosphatase 160. Magnesium 2.1, and phosphorus is 3.1, INR is 1.15. Whitecount i s 15.0 with an H and H of 9.0 and 27.5 with 446,00 0 platelets. Chestx-ray shows retrocardiac atelectasis with pulmonary edema and/or pneumonia. DIAGNOSTIC IMPRESSION:1. Respiratory failure with hypoxemia.2. Likely, the patient to have obstructive sleep apnea and obesityhypoventilation. I will be obtaining an ABG. He was placed on BiPAP.3. Vascular congestion and possible volume overload.4. Left lower lobe infiltrate, most likely pneumonia jada t is being treated withcefepime.5. Altered mental status, post subdural hematoma.6. Plate atelectasis.7. Obesity.8. History of diabetes an d seizure disorder. DISCUSSION: The patient will b e placed on BiPAP during the time he sleeps. Wewil l be getting an ABG to make sure that he does not have at the present time arespiratory acidosis. He will continue on nebulization treatments. The patientis being treated for hypertension, hyperlipidemia as well as diabetes. Thechest x-ray is suggestive of volume overload. We will be getting a brainnatriuretic peptide. The patient has been pancultured, and he will be followedvery closely in the unit. While he is no t on the BiPAP, he will be on a nasalcannula to keep the saturation of oxygen above 92% to 94%. Dictated By: River Issa MD WT: CON:S.JEANNETTE/SRINIVAS/NTSDD: 11/23/2020 12:06:16DT: 11/23/2020 18:40:24Conf#: [id number]/[facility]#: [id number] PATIENT NAME: ELENO SPENCER JR ACCONT #: [id number] Authenticated by Estevan Issa MD On 11/24/2020 10:31:16 AM Electronicall y Signed by River Issa MD on 11/24/20 at 1031 PATIENT NAME: ELENO SPENCER JR ACCONT #: [id number]:00S.H I [id number] for patient [id number]:31:51 2020-11-23 04:54:00 [id number] [address] PATIENT NAME: ELENO SPENCER JR ADMIT DATE: 11/22/20ACCOUNT NO: [id number] ROOM NO: S.351 AGE: 70 REPORT TYPE: CONSULTATION SEX: M ADMITTING PHYSICIAN:Guy Marcial MD ATTENDING PHYSICIAN:Guy Marcial MD CONSULTATION DATE: 11/23/2020 CONSULTING PHYSICIAN: Ismael Julio Jr, MD INFECTIOUS DISEASE CONSULTATION ATTENDING PHYSICIAN: Guy Marcial MD HISTORY OF PRESENT ILLNESS: I came by to see the patient today in consultationfrom infectious disease standpoint. There are absolutely no records availableon the patient, no H and P, no paperwork, no nothing. Nurse has no idea why thepatient is here, supervisory personnel cannot find any records accompanying thepatient or any computer generated record. While he is alert and attentive, thedetails of why he is here and what the circumstances are, are unknown to him. Therefore, it is impossible for me to do a consultation note in a patient whohas no records , with the nurse who has no idea why he is here. All she did wastake an old MAR and placed the patient back on Maxipime for reasons that are notentirely clear. Reached out the supervisory personnel who cannot help, I willsend a note to administration, asking to get the records as quick as possible soperhaps the next group of doctors coming by will have a more intelligent commenton his care and that the patient should not be transferred especially in themiddle of night to an institution with zero medical record s available. Standingby for further information, s o I can see I can help from the infectious diseasesstandpoint. Good news is he is alert and hemodynamically stable and is notunder in any emergent situation at least on my rounds at the time ____. We willdo a more formal consultation when some information of any type is available. Dictated By: Ismael Julio Jr, MD WT: CON:S.JEANNETTE/SELINA/NTSDD: 11/23/2020 04:54:37DT: 11/23/2020 05:27:35Conf#: [id number]/DID#: [id number] Authenticated by Ismael Julio MD On 12:52:32 PM at 1252 PATIENT NAME: JOHANNAELENORenetta Vallejo JR ACCONT #: [id number]:27:00S.H I [id number] for patient [id number]:53:12"
[2023-07-10 10:28] LABS: Absolute Lymphocytes (CBC) 4.4 K/uL (0.7-4.9); Hematocrit 38.5 % (39.6-49.0); Lymphocytes % 49.1 % (15.3-44.8); Platelets 367 thou/uL (152-406); RBC Red Blood Cell Count 4.09 M/uL (4.33-5.43)
[2023-07-10 10:42] LABS: Potassium 4.7 mEq/L (3.5-5.1)
--- NOTE | 2023-07-10 10:58 | EDPHYS ---
Physician Documentation [facility] Name: Eleno Grossman Jr Age: 72 yrs Sex: Male : 1950 Arrival Date: 07/10/2023 Time: 09:38 Bed 19 Private MD: ED Physician Jerrod Matta HPI: 07/10 09:56 This 72 yrs old Male presents to ER via Wheelchair with complaints of Abnormal Lab ms3 Results. 09:56 72-year-old male with past medical history of arthritis, CVA, hypertension, subdural ms3 hematoma, tremors, seizures hypertension, hyperlipidemia presents to the emergency department for elevated potassium that was noted on labs drawn yesterday. Patient states he has had generalized weakness. Patient denies fevers or chills. Patient also notes he had an elevated white blood count. Historical: - Allergies: 09:52 PENICILLINS; ll1 - PMHx: 09:52 Arthritis; Cerebrovascular accident; Hypertensive disorder; subdural hematoma; tremors; ll1 09:54 Seizure; ll1 - Immunization history:: Adult Immunizations up to date. - Social history:: Smoking status: Patient denies any tobacco usage or history of. ROS: 09:56 Neck: Negative for injury, pain, and swelling, Cardiovascular: Negative for chest pain, ms3 and palpitations. Respiratory: Negative for shortness of breath, cough, wheezing, and pleuritic chest pain, Abdomen/GI: Negative for abdominal pain, nausea, vomiting, diarrhea, and constipation, MS/Extremity: Negative for injury and deformity, Skin: Negative for injury, rash, and discoloration, 09:56 Constitutional: Positive for Generalized weakness, 09:56 All other systems are negative, Exam: 09:56 Constitutional: This is a well developed, well nourished patient who is awake, alert, ms3 and in no acute distress. Head/Face: Normocephalic, atraumatic. Neck: Trachea midline, no cervical lymphadenopathy. Supple, full range of motion without nuchal rigidity, or vertebral point tenderness. No Meningismus. Chest/axilla: Normal chest wall appearance and motion. Nontender with no deformity. Cardiovascular: Regular rate and rhythm with a normal S1 and S2. No gallops, murmurs, or rubs. Normal PMI, no JVD. No pulse deficits. Respiratory: Lungs have equal breath sounds bilaterally, clear to auscultation and percussion. No rales, rhonchi or wheezes noted. No increased work of breathing, no retractions or nasal flaring. Abdomen/GI: Soft, non-tender, with normal bowel sounds. No distension or tympany. No guarding or rebound. No evidence of tenderness throughout. Skin: Warm, dry with normal turgor. Normal color with no rashes, no lesions, and no evidence of cellulitis. MS/ Extremity: Pulses equal, no cyanosis. Neurovascular intact. Full, normal range of motion. 10:56 ECG was reviewed by the Attending Physician. ms3 Vital Signs: 09:51 BP 142 / 74; Pulse 68; Resp 17; Temp 98; Pulse Ox 96% ; Weight 110.22 kg; Height 5 ft. ll1 5 in. ; Pain 6/10; 11:00 BP 156 / 68; Pulse 60; Resp 15 S; Pulse Ox 98% on R/A; kc6 09:51 Body Mass Index 40.44 (110.22 kg, 165.1 cm) ll1 09:51 Pain Scale: Adult ll1 MDM: 09:56 Differential Diagnosis Hemolysis, acute renal failure, anemia. ms3 10:02 Patient medically screened. ms3 11:04 Data reviewed: vital signs, nurses notes, lab test result(s), and as a result, I will ms3 discharge patient. Historians other than the Patient: Spouse/Significant Other: Patient . Counseling: I had a detailed discussion with the patient and/or guardian regarding the historical points, exam findings, and any diagnostic results supporting the discharge/admit diagnosis, the need for outpatient follow up, to return to the emergency department if symptoms worsen or persist or if there are any questions or concerns that arise at home. Special discussion: I discussed with the patient/guardian in detail that at this point there is no indication for admission to the hospital. It is understood, however, that if the symptoms persist or worsen the patient needs to return immediately for re-evaluation. ED course: Discussed labs with patient and his . Patient to follow-up with Dr. Gracia in 2 to 3 days. Patient and his understand and agree with plan. All questions were answered. Return precautions discussed include worsening symptoms, or any other concerns. 07/10 09:56 Order name: CBC with Diff ms3 07/10 09:56 Order name: BMP; Complete Time: 10:56 ms3 EC:56 Rate is 64 beats/min. Rhythm is regular. QRS Newman is Normal. NH interval is normal. QRS ms3 interval is normal. QT interval is normal. Clinical impression: Normal ECG. Interpreted by me. Reviewed by me. Administered Medications: No medications were administered Disposition Summary: 07/10/23 10:58 Discharge Ordered Notes: Location: Home ms3 Condition: Stable ms3 Diagnosis - Anemia, unspecified ms3 - Essential (primary) hypertension ms3 Followup: ms3 - With: Hilton Gracia MD - When: 2 - 3 days - Reason: Recheck today's complaints Discharge Instructions: - Discharge Summary Sheet ms3 - Anemia ms3 - Hypertension, Adult ms3 Forms: - Medication Reconciliation Form ms3 - Thank You Letter ms3 - Antibiotic Education ms3 - Prescription Opioid Use ms3 - Patient Portal Instructions ms3 - Leadership Thank You Letter ms3 Signatures: Dispatcher [employer] Eliana Kaur RN RN ll1 Jerrod Matta DO DO ms3
--- NOTE | 2023-07-10 10:58 | ER ---
Nurse's Notes [facility] Name: Eleno Grossman Jr Age: 72 yrs Sex: Male : 1950 Arrival Date: 07/10/2023 Time: 09:38 Bed 19 Private MD: Diagnosis: Anemia, unspecified;Essential (primary) hypertension Presentation: 07/10 09:51 Chief complaint: Patient states: Called to come to ED for high K. Drawn with Dr. Gracia ll1 yesterday. Coronavirus screen: Client denies travel out of the [place] in the last 14 days. At this time, the client does not indicate any symptoms associated with coronavirus-19. Ebola Screen: Patient denies travel to an Ebola-affected area in the 21 days before illness onset. Initial Sepsis Screen: Does the patient meet any 2 criteria? No. Patient's initial sepsis screen is negative. Does the patient have a suspected source of infection? No. Patient's initial sepsis screen is negative. Risk Assessment: Do you want to hurt yourself or someone else? Patient reports no desire to harm self or others. Onset of symptoms was July 09, 2023. 09:51 Method Of Arrival: Wheelchair ll1 09:51 Acuity: MORENA 3 ll1 Historical: - Allergies: 09:52 PENICILLINS; ll1 - PMHx: 09:52 Arthritis; Cerebrovascular accident; Hypertensive disorder; subdural hematoma; tremors; ll1 09:54 Seizure; ll1 - Immunization history:: Adult Immunizations up to date. - Social history:: Smoking status: Patient denies any tobacco usage or history of. Screenin:12 [facility] ED Fall Risk Assessment (Adult) History of falling in the last 3 months, kc6 including since admission No falls in past 3 months (0 pts) Confusion or Disorientation No (0 pts) Intoxicated or Sedated No (0 pts) Impaired Gait No (0 pts) Mobility Assist Device Used No (0 pt) Altered Elimination No (0 pt) Score/Fall Risk Level 0 - 2 = Low Risk. Abuse screen: Denies threats or abuse. Denies injuries from another. Nutritional screening: No deficits noted. Tuberculosis screening: No symptoms or risk factors identified. Assessment: 10:12 General: Appears in no apparent distress. comfortable, obese, well groomed, Behavior is kc6 calm, cooperative, appropriate for age. Pain: Denies pain. Neuro: Level of Consciousness is awake, alert, obeys commands, Oriented to person, place, time, situation, Appropriate for age. Cardiovascular: Denies chest pain, Heart tones S1 S2 present Capillary refill < 3 seconds Rhythm is sinus rhythm. Respiratory: Airway is patent Trachea midline Respiratory effort is even, unlabored, Respiratory pattern is regular, symmetrical, Denies shortness of breath. GI: No signs and/or symptoms were reported involving the gastrointestinal system. : No signs and/or symptoms were reported regarding the genitourinary system. EENT: No signs and/or symptoms were reported regarding the EENT system. Derm: No signs and/or symptoms reported regarding the dermatologic system. Skin is intact, is healthy with good turgor, Skin is pink, warm \T\ dry. Musculoskeletal: No signs and/or symptoms reported regarding the musculoskeletal system. Circulation, motion, and sensation intact. Capillary refill < 3 seconds, Range of motion: intact in all extremities. 11:00 Reassessment: Patient appears in no apparent distress at this time. No changes from kc6 previously documented assessment. Patient and/or family updated on plan of care and expected duration. Pain level reassessed. Patient is alert, oriented x 3, equal unlabored respirations, skin warm/dry/pink. Vital Signs: 09:51 BP 142 / 74; Pulse 68; Resp 17; Temp 98; Pulse Ox 96% ; Weight 110.22 kg; Height 5 ft. ll1 5 in. ; Pain 6/10; 11:00 BP 156 / 68; Pulse 60; Resp 15 S; Pulse Ox 98% on R/A; kc6 09:51 Body Mass Index 40.44 (110.22 kg, 165.1 cm) ll1 09:51 Pain Scale: Adult ll1 ED Course: 09:43 Patient arrived in ED. mg5 09:44 Jerrod Matta DO is Attending Physician. ms3 09:52 Triage completed. ll1 09:53 Arm band placed on. ll1 10:12 Darlene Corona, [place] is Primary Nurse. kc6 10:13 Patient has correct armband on for positive identification. Bed in low position. Call kc light in reach. Side rails up X2. Adult w/ patient. Client placed on continuous cardiac and pulse oximetry monitoring. NIBP monitoring applied. youth nutritional monitor on. 10:13 Patient maintains SpO2 saturation greater than 95% on room air. kc6 10:57 Hilton Gracia MD is Referral Physician. ms3 11:09 No provider procedures requiring assistance completed. IV discontinued, intact, kc6 bleeding controlled, No redness/swelling at site. Pressure dressing applied. Administered Medications: No medications were administered Medication: 11:09 VIS not applicable for this client. kc6 Outcome: 10:58 Discharge ordered by . ms3 11:09 Discharged to home via wheelchair, with significant other, kc6 11:09 Condition: good 11:09 Discharge instructions given to patient, significant other, Instructed on discharge instructions, follow up and referral plans. Demonstrated understanding of instructions, follow-up care, 11:09 Patient left the ED. kc6 Signatures: Eliana Santillan, RN RN ll1 Jerrod Matta DO DO ms3 Darlene Corona RN RN kc6 Yulisa Gonzales 5
[2023-07-10 11:14] VITALS: TEMP 98
[2023-07-10 11:15] VITALS: BP 156/68; O2SAT 98
[2023-07-10 11:49] LABS: Blood Morphology Comment NOT SEEN (NOT SEEN); Platelet Estimate ADEQ
--- NOTE | 2023-07-11 15:17 | EKG ---
Test Date: 2023-07-10 Test Time: 10:17:38 Floating Derrick Operator: ROBERTO MEASUREMENT RESULTS: Intervals: Rate: 64 NC: 198 QRSD: 78 QT: 418 QTc: 431 [place]: P: 52 NC: 198 QRS: 2 T: 29 INTERPRETIVE STATEMENTS: Normal sinus rhythm Normal ECG Compared to ECG 03/23/2023 08:03:41 Sinus bradycardia no longer present Electronically Signed On 07-11-23 15:12:22 CONFIGURATION MANAGEMENT CONSULTANT by Jorge Alberto Mata
== END 2023-07-10 11:09 | disposition home or self-care (01) ==
LOC: ER 09:38 → SUPCPDRO 09:38 → ER 11:09
DX: D64.9 Anemia, unspecified (principal); I10 Essential (primary) hypertension; R53.1 Weakness; Z88.0 Allergy status to penicillin; Z86.73 Personal history of transient ischemic attack (TIA), and cerebral infarction without residual deficits
CPT/HCPCS: 36415; 80048; 85025; 93005; 99284

== ENCOUNTER 2023-09-21 12:21 | Inpatient (IN) | payer MEDICARE ==
[2023-09-21 12:42] LABS: Absolute Lymphocytes (CBC) 3.8 K/uL (0.7-4.9); Hematocrit 33.9 % (39.6-49.0); Lymphocytes % 41.7 % (15.3-44.8); MCV 94.4 fL (80-100); MPV 6.3 fL (7.6-11.3); Platelets 295 thou/uL (152-406); RBC Red Blood Cell Count 3.59 M/uL (4.33-5.43)
[2023-09-21 13:00] LABS: Bilirubin Total 0.3 mg/dL (0.2-1.0); Potassium 4.6 mEq/L (3.5-5.1); Protein, Total 7.2 g/dL (6.4-8.2); Troponin High Sensitivity 7.5 pg/mL (<58.9)
[2023-09-21] MEDS ORDERED: NA CHLORIDE 0.9% 1,000 ML ONE (13:03)
[2023-09-21 13:06] LABS: Specific Gravity 1.006 (1.005-1.030); Urine Bacteria None Seen /HPF (<20); Urine Bilirubin NEGATIVE (Negative); Urine Blood Negative (Negative); Urine Clarity Clear (Clear); Urine Color Colorless (Yellow); Urine Glucose NEGATIVE (Negative); Urine Protein NEGATIVE (Negative); Urine RBC <5 /HPF (None Seen); Urine Urobilinogen Normal (Normal)
--- NOTE | 2023-09-21 13:25 | RAD REPORT ---
EXAM DESCRIPTION: CT - CTHCSPWOC - 09/21/2023 1:12 pm CLINICAL HISTORY: Trauma, head and neck injury. recurrent falls COMPARISON: Head C Spine Mpr Wo Con dated 03/23/2023 TECHNIQUE: Axial 5 mm thick images of the head were obtained. Axial 2 mm thick images of the cervical spine were obtained with sagittal and coronal reconstruction images generated and reviewed. All CT scans are performed using dose optimization technique as appropriate and may include automated exposure control or mA/KV adjustment according to patient size. FINDINGS: CT HEAD WITHOUT CONTRAST: No acute hemorrhage, hydrocephalus or extra-axial collection is identified.No areas of brain edema or midline shift. Prior right frontoparietal craniotomy. Right frontal lobe encephalomalacia The paranasal sinuses and mastoids are clear.The calvarium is intact. CT CERVICAL SPINE WITHOUT CONTRAST: No fracture or subluxation.No prevertebral soft tissues swelling is identified. Multilevel degenerati ve changes are present in the spine. Varying degrees of neural foraminal narrowing noted. This is at most moderate bilaterally at C4-5. IMPRESSION: No acute intracranial or cervical spine findings.
--- NOTE | 2023-09-21 13:27 | RAD REPORT ---
EXAM DESCRIPTION: RAD - Chest Single View - 09/21/2023 1:01 pm CLINICAL HISTORY: falls COMPARISON: Chest Single View dated 03/23/2023 FINDINGS: Lines: None. Lungs: No evidence of edema or pneumonia. Pleural: No significant pleural effusions or pneumothorax. Cardiac: The heart size is within normal limits. Mediastinum: Within normal limits. Bones: No acute fractures. Other: None IMPRESSION: No acute cardiopulmonary disease.
--- NOTE | 2023-09-21 14:31 | ER ---
Nurse's Notes [facility] Name: Eleno Grossman Jr Age: 72 yrs Sex: Male : 1950 Arrival Date: 09/21/2023 Time: 12:21 Bed 19 Private MD: Diagnosis: Dizziness and giddiness;Weakness Presentation: 09/21 12:28 Chief complaint: EMS states: reports generalized weakness that has been getting worse cp4 according to . Coronavirus screen: Vaccine status: Client denies travel out of the [place] in the last 14 days. At this time, the client does not indicate any symptoms associated with coronavirus-19. Ebola Screen: Patient negative for fever greater than or equal to 101.5 degrees Fahrenheit, and additional compatible Ebola Virus Disease symptoms. Initial Sepsis Screen: Does the patient meet any 2 criteria? No. Patient's initial sepsis screen is negative. Does the patient have a suspected source of infection? No. Patient's initial sepsis screen is negative. Risk Assessment: Do you want to hurt yourself or someone else? Patient reports no desire to harm self or others. Onset of symptoms is unknown. 12:28 Method Of Arrival: EMS: [facility] cp4 12:28 Acuity: MORENA 3 cp4 Triage Assessment: 12:29 General: Appears in no apparent distress. Behavior is calm, cooperative, appropriate cp4 for age. Pain: Denies pain. Historical: - Allergies: 12:29 PENICILLINS; cp4 - PMHx: 12:29 Arthritis; Cerebrovascular accident; Hypertensive disorder; Seizure; subdural hematoma; cp4 tremors; - Immunization history:: Adult Immunizations up to date. - Social history:: Smoking status: Patient denies any tobacco usage or history of. Screenin:30 [facility] ED Fall Risk Assessment (Adult) History of falling in the last 3 months, cp4 including since admission Yes- fall prone (multiple falls) (3 pts) Confusion or Disorientation No (0 pts) Intoxicated or Sedated No (0 pts) Impaired Gait No (0 pts) Mobility Assist Device Used No (0 pt) Altered Elimination No (0 pt) Score/Fall Risk Level 0 - 2 = Low Risk Oriented to surroundings, Maintained a safe environment, Educated pt \T\ family on fall prevention, incl call for assistance when getting out of bed, Assessed \T\ reinforced patient's understanding of fall precautions, Provided non-skid footwear, Hourly rounding (assess needs \T\ fall precautionary measures) done. Abuse screen: Denies threats or abuse. Nutritional screening: No deficits noted. Tuberculosis screening: No symptoms or risk factors identified. Assessment: 12:30 Reassessment: No changes from previously documented assessment. cp4 Vital Signs: 12:28 BP 160 / 74; Pulse 64; Resp 16; Temp 98; Pulse Ox 97% ; cp4 13:30 BP 143 / 54; Pulse 63; Resp 18; Pulse Ox 97% ; cp4 14:30 BP 135 / 67; Pulse 63; Resp 18; Pulse Ox 97% ; cp4 15:30 BP 145 / 61; Pulse 59; Resp 18; Pulse Ox 99% ; cp4 ED Course: 12:24 Patient arrived in ED. eb 12:24 Frank Ravi MD is Attending Physician. eb 12:27 Miroslava Hawkins is Primary Nurse. cp4 12:29 Triage completed. cp4 12:29 Arm band placed on right wrist. Patient placed in the treatment room. cp4 12:30 Fall risk band placed. Placed in gown. Bed in low position. Call light in reach. Side cp4 rails up X2. 13:00 UAM Sent. cp4 13:00 No provider procedures requiring assistance completed. Maintain EMS IV. Dressing cp4 intact. Good blood return noted. Site clean \T\ dry. Gauge \T\ site: 20 right hand.. 13:03 XRAY Chest (1 view) In Process Unspecified. EDMS 13:13 CT Head C Spine In Process Unspecified. EDMS 14:31 Ismael Nowak is Hospitalizing Provider. ec2 16:51 Provided Education on: ADMISSION. cp4 16:53 Patient admitted, IV remains in place. cp4 Administered Medications: 13:09 Drug: NS 0.9% IV 1000 ml IV at 1 bolus Per protocol; 1000 mL bolus Route: IV; Rate: 1 cp4 bolus; Site: right hand; 15:52 Follow up: Response: No adverse reaction; IV Status: Completed infusion cp4 Medication: 12:30 VIS not applicable for this client. cp4 Point of Care Testing: Blood Glucose: 12:29 Blood Glucose: 120 mg/dL; cp4 Ranges: Outcome: 14:31 Decision to Hospitalize by Provider. ec2 16:53 Admitted to Med/surg accompanied by tech, via stretcher, Report called to Ke cameron 16:53 Condition: stable 16:53 Instructed on the need for admit, Demonstrated understanding of instructions, follow-up care, 16:54 Patient left the ED. cp4 Signatures: Dispatcher [employer] Jamee Ann Edwin, MD MD ec2 Miroslava Hawkins cp4
--- NOTE | 2023-09-21 14:31 | EDPHYS ---
Physician Documentation [facility] Name: Eleno Grossman Jr Age: 72 yrs Sex: Male : 1950 Arrival Date: 09/21/2023 Time: 12:21 Bed 19 Private MD: ED Physician Frank Ravi HPI: 09/21 12:30 This 72 yrs old Male presents to ER via EMS with complaints of General ec2 Weakness. 12:30 Patient arrives today for evaluation of dizziness. Patient reports 3 weeks of symptoms, ec2 states that he feels unstable on his feet. Patient reports recurrent falls. Reports that he has no chest pain or difficulty breathing, denies abdominal pain, denies head or neck pain. Reports no blood thinners.. Historical: - Allergies: 12:29 PENICILLINS; cp4 - PMHx: 12:29 Arthritis; Cerebrovascular accident; Hypertensive disorder; Seizure; subdural hematoma; cp4 tremors; - Immunization history:: Adult Immunizations up to date. - Social history:: Smoking status: Patient denies any tobacco usage or history of. ROS: 12:30 Constitutional: as per hpi ec2 Exam: 12:30 Constitutional: GEN: No acute distress HEENT: -Head: no deformities -Eyes: EOMI CV: ec2 regular rate LUNGS: no respiratory distress ABD: non-tender SKIN: no wounds appreciated MSK: No C/T/L spine deformities RUE w/o bony deformity LUE w/o bony deformity RLE w/o bony deformity LLE w/o bony deformity NEURO: moves all extremities equally, GCS 15 (E4, V5, M6) Vital Signs: 12:28 BP 160 / 74; Pulse 64; Resp 16; Temp 98; Pulse Ox 97% ; cp4 13:30 BP 143 / 54; Pulse 63; Resp 18; Pulse Ox 97% ; cp4 14:30 BP 135 / 67; Pulse 63; Resp 18; Pulse Ox 97% ; cp4 15:30 BP 145 / 61; Pulse 59; Resp 18; Pulse Ox 99% ; cp4 MDM: 12:27 Patient medically screened. ec2 12:30 Data reviewed: vital signs. ED course: Patient arrives today for dizziness and ec2 recurrent falls. Examination remarkable for well-appearing nontoxic individual who is atraumatic. Will obtain CT imaging of the head and C-spine as well as lab work to further investigate the patient's complaint. Currently considered intracranial brain bleed, C-spine fracture, arrhythmia, electrolyte disturbances.. 13:23 ED course: CBC unremarkable, metabolic profile shows renal dysfunction with a GFR of ec2 65. Troponin within normal ranges, urine noninfectious appearing. . 14:00 ED course: CT scan of the head and C-spine showed no acute traumatic process, chest ec2 x-ray is unremarkable.. 14:30 ED course: I will admit the patient given that his generalized weakness and issues with ec2 dizziness, patient at risk for increased falls and potential for injured himself given his had multiple recurrent falls this past week. I discussed case with the patient and the family in the room who agree with the plan. Discussed case with hospitalist, pending admission. 09/21 12:28 Order name: CBC with Diff; Complete Time: 13:22 ec2 09/21 12:28 Order name: CMP; Complete Time: 13:22 ec2 09/21 12:28 Order name: Troponin HS; Complete Time: 13:22 ec2 09/21 12:28 Order name: [facility]; Complete Time: 13:22 ec2 09/21 15:31 Order name: T4 Free EDMS 09/21 15:31 Order name: Thyroid Stimulating Hormone EDMS 09/21 15:31 Order name: Basic Metabolic Panel EDMS 09/21 15:31 Order name: Basic Metabolic Panel EDMS 09/21 15:31 Order name: Basic Metabolic Panel EDMS 09/21 15:31 Order name: Basic Metabolic Panel EDMS 09/21 15:31 Order name: Basic Metabolic Panel EDMS 09/21 15:31 Order name: Basic Metabolic Panel EDMS 09/21 15:31 Order name: CBC with Automated Diff EDMS 09/21 15:31 Order name: CBC with Automated Diff EDMS 09/21 15:31 Order name: CBC with Automated Diff EDMS 09/21 15:31 Order name: CBC with Automated Diff EDMS 09/21 15:31 Order name: CBC with Automated Diff EDMS 09/21 15:31 Order name: CBC with Automated Diff EDMS 09/21 15:31 Order name: Lipid Profile EDMS 09/21 15:31 Order name: Lipid Profile EDMS 09/21 15:31 Order name: Magnesium EDMS 09/21 15:31 Order name: Magnesium EDMS 09/21 15:31 Order name: Magnesium EDMS 09/21 15:31 Order name: Magnesium EDMS 09/21 15:31 Order name: Magnesium EDMS 09/21 15:31 Order name: Magnesium EDMS 09/21 15:31 Order name: Phosphorus EDMS 09/21 15:31 Order name: Phosphorus EDMS 09/21 15:31 Order name: Phosphorus EDMS 09/21 15:31 Order name: Phosphorus EDMS 09/21 15:31 Order name: Phosphorus EDMS 09/21 15:31 Order name: Phosphorus EDMS 09/21 15:31 Order name: Troponin High Sensitivity EDMS 09/21 15:31 Order name: Troponin High Sensitivity EDMS 09/21 15:31 Order name: Troponin High Sensitivity EDMS 09/21 12:28 Order name: CT Head C Spine; Complete Time: 14:00 ec2 09/21 12:29 Order name: XRAY Chest (1 view); Complete Time: 14:00 ec2 09/21 12:28 Order name: EKG; Complete Time: 12:28 ec2 09/21 15:31 Order name: CONS Physician Consult [facility] 09/21 12:28 Order name: EKG - Nurse/Tech; Complete Time: 12:48 ec2 09/21 12:28 Order name: Cath; Complete Time: 13:00 ec2 09/21 12:29 Order name: Cardiac monitoring; Complete Time: 12:48 ec2 09/21 12:29 Order name: IV Saline Lock; Complete Time: 12:31 ec2 09/21 12:29 Order name: Labs collected and sent; Complete Time: 12:48 ec2 09/21 12:29 Order name: O2 Per Protocol; Complete Time: 12:31 ec2 09/21 12:29 Order name: O2 Sat Monitoring; Complete Time: 12:32 ec2 Administered Medications: 13:09 Drug: NS 0.9% IV 1000 ml IV at 1 bolus Per protocol; 1000 mL bolus Route: IV; Rate: 1 cp4 bolus; Site: right hand; 15:52 Follow up: Response: No adverse reaction; IV Status: Completed infusion cp4 Point of Care Testing: Blood Glucose: 12:29 Blood Glucose: 120 mg/dL; cp4 Ranges: Critical Glucose Levels:Adult <50 mg/dl or >400 mg/dl <40 mg/dl or >180 mg/dl Disposition Summary: 09/21/23 14:31 Hospitalization Ordered Notes: Hospitalization Status: Inpatient Admission ec2 Provider: Ismael Nowak ec2 Location: Telemetry/MedSurg (Inpatient) ec2 Condition: Stable ec2 Problem: an acute exacerbation ec2 Symptoms: are unchanged ec2 Bed/Room Type: Standard ec2 Room Assignment: 232(09/21/23 16:03) eb Diagnosis - Dizziness and giddiness ec2 - Weakness ec2 Forms: - Medication Reconciliation Form ec2 - SBAR form ec2 - Leadership Thank You Letter ec2 Signatures: Dispatcher [employer] EDJamee Grewal Edwin, MD MD ec2 Miroslava Hawkins 4 Corrections: (The following items were deleted from the chart) 12:31 12:30 Constitutional: GEN: NAD Head: atraumatic Eyes: EOMI Ears: External ears are ec2 normal. CV: regular rate LUNGS: no respiratory distress ABD: non-distended SKIN: no evidence of rashes MSK: no evidence of trauma NEURO: moves all extremities equally ec2 16:03 14:31 ec2 eb
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
[2023-09-21 16:36] LABS: Thyroid Stimulating Hormone 3.82 uIU/mL (0.358-3.740)
[2023-09-21 16:46] VITALS: BMI 39.9
[2023-09-21] MEDS: ATORVASTATIN 20 MG TAB PO SCH (20:19)
[2023-09-21] MEDS: PHENYTOIN ER 100 MG CAP PO SCH (20:19)
[2023-09-22 03:15] LABS: Absolute Lymphocytes (CBC) 3.7 K/uL (0.7-4.9); Hematocrit 33.7 % (39.6-49.0); Lymphocytes % 40.6 % (15.3-44.8); MCV 94.1 fL (80-100); MPV 6.7 fL (7.6-11.3); Platelets 312 thou/uL (152-406); RBC Red Blood Cell Count 3.58 M/uL (4.33-5.43)
[2023-09-22 03:39] LABS: Magnesium 2.3 mg/dL (1.6-2.4); Potassium 4.6 mEq/L (3.5-5.1)
[2023-09-22] MEDS: HYDRALAZINE HCL 20 MG/ML VIAL IV PRN (04:24)
[2023-09-22] MEDS: ENOXAPARIN 40 MG/0.4 ML SQ SCH (08:52)
[2023-09-22] MEDS: PRIMIDONE 50 MG TAB PO SCH (08:53)
[2023-09-22] MEDS: PROPRANOLOL HCL 10 MG TAB PO SCH (08:53)
[2023-09-22] MEDS: SOLIFENACIN SUCCIN 5 MG TAB PO SCH (08:53)
[2023-09-22] MEDS: CITALOPRAM 10 MG TABLET PO SCH (08:54)
[2023-09-22] MEDS: AMLODIPINE 2.5 MG TAB PO SCH (08:55)
[2023-09-22] MEDS: PNEUMOCOCCAL VACCINE 0.5 ML IMVAC ONE (11:00)
[2023-09-22] MEDS: INFLUENZA VACCINE (for 6+ mo) 0.5 ML DOSE IMVAC ONE (11:00)
--- NOTE | 2023-09-22 14:30 | P.PN ---
Date of Service: 09/22/23 Subjective Awake and feeling well this morning complaining of a headache ROS 10 point ROS as noted above, otherwise negative Physical Exam General: AAOx3, NAD HEENT: Atraumatic, Normocephalic, PERRLA Neck: Supple, 2+ carotid pulse no bruit, JVD not distended Respiratory: Clear to auscultation bilaterally, Normal air movement, symmetrical chest wall movement Cardiovascular: No edema, Normal pulses, Regular rate/rhythm, Normal S1 S2, Systolic murmur Capillary refill: <2 Seconds Gastrointestinal: Normoactive bowel sounds, Soft and benign on palpation, distended, non-tender Musculoskeletal: No clubbing, No swelling, No contractures Integumentary: Skin breakdown (multiple) Neurological: Normal speech, Normal strength at 5/5 x4 extr, Normal tone, calm Vitals Reviewed Problem list Frequent falls likely secondary to Peripheral neuropathy Trauma falls with multiple skin injuries History of epilepsy controlled on medications History of CVA s/p craniotomy in 2020 Hyperglycemia Assessment and Plan Frequent falls likely secondary to Peripheral neuropathy Trauma falls with multiple skin injuries History of epilepsy controlled on medications History of CVA s/p craniotomy [place] [address] Rehman Consult PT fall risk Troponin 7.5/9.0/8.5 TSH/freeT4 3.820/0.60- mildly elevated UA negative continue home medications Monitor closely, supportive care Will require extensive physical therapy for better mobility Hyperglycemia Serum glucose 113 Accucheck with SSI no diabetes A1c pending Hx HTN/HLD Restart home medications DVT ppx lovenox full code Dispo- inpatient rehab or SNF Discharge Plan: Home (inpatient rehab) Plan to discharge in: 48 Hours
[2023-09-22] MEDS: ACETAMINOPHEN 500 MG TAB PO PRN (14:35)
[2023-09-23 07:08] LABS: Absolute Lymphocytes (CBC) 4.4 K/uL (0.7-4.9); Hematocrit 36.6 % (39.6-49.0); Lymphocytes % 48.4 % (15.3-44.8); MPV 6.5 fL (7.6-11.3); Platelets 326 thou/uL (152-406); RBC Red Blood Cell Count 3.86 M/uL (4.33-5.43)
--- NOTE | 2023-09-23 07:21 | P.PN ---
Date of Service: 09/23/23 Subjective Feeling well this morning, but agitated Orthostatic Checking dilantin level ROS 10 point ROS as noted above, otherwise negative Physical Exam General: AAOx3, NAD, Agitated HEENT: Atraumatic, Normocephalic, PERRLA Neck: Supple, 2+ carotid pulse no bruit, JVD not distended Respiratory: Clear to auscultation bilaterally, symmetrical chest wall movement, on RA Cardiovascular: No edema, Normal pulses, RRR, Normal S1 S2, Systolic murmur Capillary refill: <2 Seconds Gastrointestinal: Normoactive bowel sounds, Soft and benign on palpation, distended (obese) Musculoskeletal: No clubbing, No swelling, No contractures Integumentary: Skin breakdown (multiple) Neurological: Normal speech, Normal strength at 5/5 x4 extr, Normal tone Vitals Reviewed Problem list Frequent falls likely secondary to Peripheral neuropathy Trauma falls with multiple skin injuries History of epilepsy controlled on medications History of CVA s/p craniotomy in 2020 Hyperglycemia Assessment and Plan Frequent falls likely secondary to Peripheral neuropathy Trauma falls with multiple skin injuries History of epilepsy controlled on medications History of CVA s/p crani[place] [address] Rehman Consult PT fall risk Troponin 7.5/9.0/8.5 TSH/freeT4 3.820/0.60- mildly elevated UA negative continue home medications Monitor closely, supportive care Will require extensive physical therapy for better mobility Brain MRI reports "No acute intracranial process.Sequelae of right frontoparietal craniotomy and underlying areas of encephalomalacia and gliosis as above." Orthostatic: Supine BP 140/61 heart rate 67, Sitting BP 140/66 heart rate 65, Standing BP 85/43 heart rate 76 checking Dilantin level ECHO Hyperglycemia- resolved Serum glucose 100 Accucheck with SSI no diabetes history A1c 5.8 Hx HTN/HLD Restart home medications DVT ppx lovenox full code Dispo- inpatient rehab or SNF Discharge Plan: Home (inpatient rehab) Plan to discharge in: 48 Hours <Jenn Leavitt - Last Filed: 09/23/23 15:53> Patient seen and examined. Plan of care discussed with Ms. Leavitt. Multiple falls: Etiology include orthostatic hypotension, Dilantin toxicity. Hold Dilantin and monitor level until therapeutic before resuming at 300 mg at night. Neurology Dr. Rehman input appreciated. Continue PT Fall precautions. <leanne gomez - Last Filed: 09/23/23 17:03>
[2023-09-23 07:29] LABS: Magnesium 2.3 mg/dL (1.6-2.4); Phosphorus 3.6 mg/dL (2.5-4.9); Potassium 4.4 mEq/L (3.5-5.1)
--- NOTE | 2023-09-23 11:42 | RAD REPORT ---
EXAM DESCRIPTION: MRI - Brain Wo Cont - 09/23/2023 9:44 am CLINICAL HISTORY: frequent falls, dropping objects COMPARISON: Head and C-spine CT 09/21/2023 with TECHNIQUE: Multiplanar multisequence MRI of the brain performed without IV contrast. FINDINGS: Motion artifact somewhat limits evaluation, despite attempts at repeat imaging. No evidence of acute infarct or other diffusion signal abnormality. No evidence of acute intracranial hemorrhage or abnormal extra-axial fluid collections. Mild diffuse parenchymal volume loss. Ventricular caliber otherwise within normal for age. Midline st ructures are unremarkable. Sequelae of right frontoparietal craniotomy and high right frontal region of encephalomalacia with ad jacent gliosis. Extent is stable compared to the prior CT. Crescentic high right frontal juxta cortic al susceptibility signal abnormality may relate to remote hemosiderin deposition. Another small regio n of juxta cortical encephalomalacia along the right lateral parietotemporal region other scattered f oci of periventricular and deep white matter T2/FLAIR hyperintensity are nonspecific but suggest surgical device sales representative casimiro small vessel ischemic changes. No mass effect or midline shift. Major vascular flow voids are preserved. Mastoid air cells and paranasal sinuses are clear. IMPRESSION: No acute intracranial process. Sequelae of right frontoparietal craniotomy and underlying areas of encephalomalacia and gliosis as a jim.
--- NOTE | 2023-09-23 13:38 | EKG ---
Test Date: 2023-09-21 Test Time: 12:42:45 Weatherization And Housing Inspector: KALLIE MEASUREMENT RESULTS: Intervals: Rate: 58 [place]: QRSD: 82 QT: 440 QTc: 431 [place]: P: [place]: QRS: -1 T: 38 INTERPRETIVE STATEMENTS: Junctional rhythm Abnormal ECG Compared to ECG 07/10/2023 10:17:38 Junctional rhythm now present Sinus rhythm no longer present Electronically Signed On 09-23-23 13:33:29 LENS GRINDER by Jorge Alberto Mata
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
[2023-09-24 03:50] LABS: Hematocrit 36.1 % (39.6-49.0); Lymphocytes % 45.6 % (15.3-44.8); MCV 94.8 fL (80-100); MPV 6.4 fL (7.6-11.3); Platelets 300 thou/uL (152-406); RBC Red Blood Cell Count 3.81 M/uL (4.33-5.43)
[2023-09-24 04:06] LABS: Magnesium 2.1 mg/dL (1.6-2.4); Phenytoin (Dilantin) Level 31.8 mcg/mL (10.0-20.0); Phosphorus 3.9 mg/dL (2.5-4.9); Potassium 4.5 mEq/L (3.5-5.1)
--- NOTE | 2023-09-24 12:49 | ECHO ---
HEIGHT: 5 ft 5 in WEIGHT: 240 lb 0 oz DATE OF STUDY: 09/24/[address]: Jenn Leavitt NP 2-DIMENSIONAL: YES M.MODE: YES DOPPLER: YES COLOR FLOW: YES TDS: PORTABLE: YES DEFINITY: BUBBLE STUDY: DIAGNOSIS: SYSTOLIC MURMUR, FREQUENT FALLS CARDIAC HISTORY: CATHERIZATION: SURGERY: PROSTHETIC VALVE: PACEMAKER: MEASUREMENTS (cm) DIASTOLIC (NORMALS) SYSTOLIC (NORMALS) IVSd 1.2 (0.6-1.2) LA Diam 3.6 (1.9-4.0) LVEF 64% LVIDd 3.5 (3.5-5.7) LVIDs 2.3 (2.0-3.5) %FS 34% LVPWd 13.3 (0.6-1.2) Ao Diam 3.1 (2.0-3.7) 2 DIMENSIONAL ASSESSMENT: RIGHT ATRIUM: NORMAL LEFT ATRIUM: NORMAL RIGHT VENTRICLE: NORMAL LEFT VENTRICLE: NORMAL TRICUSPID VALVE: TRACE TRICUSPID REGURGITATION MITRAL VALVE: TRACE MITRAL REGURGITATION PULMONIC VALVE: NORMAL AORTIC VALVE: MILD AORTIC STENOSIS, TRACE AORTIC REGURGITATION PERICARDIAL EFFUSION: NONE AORTIC ROOT: NORMAL LEFT VENTRICULAR WALL MOTION: NORMAL DOPPLER/COLOR FLOW: GRADE I DIASTOLIC DYSFUNCTION COMMENTS: 1. NORMAL LEFT VENTRICULAR SYSTOLIC FUNCTION, NORMAL WALL MOTION, EJECTION FRACTION 55-60% 2. GRADE I DIASTOLIC DYSFUNCTION 3. MILD AORTIC STENOSIS, TRACE AORTIC REGURGITATION 4. RIGHT VENTRICULAR SYSTOLIC PRESSURE 25-30 mmHg TECHNOLOGIST: ROSIO AHN
--- NOTE | 2023-09-24 13:32 | P.PN ---
Date of Service: 09/24/23 Subjective: Improving, no acute events overnight ROS: 10 point ROS as noted above, otherwise negative Physical exam GEN: Alert, oriented, NAD HEENT: Normal conjunctiva, sclera anicteric CV: Regular rate and rhythm, no edema Pulm: Nonlabored respirations on room air ABD: Soft, nontender, nondistended MSK: No joint tenderness Integumentary: No rashes Neuro: Normal speech, normal affect Vitals reviewed Problem List Dilantin toxicity Frequent falls likely secondary to Peripheral neuropathy Trauma falls with multiple skin injuries History of epilepsy controlled on medications History of CVA s/p craniotomy in 2020 Dilantin level still elevated greater than 30 Follow Dilantin level, once less than 20 can reinitiate Dilantin 300 mg daily Seen by neurology Consult PT, fall risk Will require extensive physical therapy for better mobility Brain MRI reports "No acute intracranial process.Sequelae of right frontoparietal craniotomy and underlying areas of encephalomalacia and gliosis as above." Orthostatic: Supine BP 140/61 heart rate 67, Sitting BP 140/66 heart rate 65, Standing BP 85/43 heart rate 76 Hx HTN/HLD Restart home medications Dispo- inpatient rehab or SNF Discharge Plan: Home (inpatient rehab) Plan to discharge in: 48 Hours Time Spent Managing Pts Care (In Minutes): 35
[2023-09-25] MEDS: MELATONIN 5 MG TABLET PO ONE (00:18)
[2023-09-25 03:25] LABS: Absolute Lymphocytes (CBC) 4.1 K/uL (0.7-4.9); Hematocrit 35.2 % (39.6-49.0); Lymphocytes % 46.6 % (15.3-44.8); MCV 93.8 fL (80-100); MPV 6.3 fL (7.6-11.3); Platelets 319 thou/uL (152-406); RBC Red Blood Cell Count 3.76 M/uL (4.33-5.43)
[2023-09-25 03:31] LABS: Magnesium 2.2 mg/dL (1.6-2.4); Phenytoin (Dilantin) Level 28.7 mcg/mL (10.0-20.0); Potassium 4.8 mEq/L (3.5-5.1)
--- NOTE | 2023-09-25 10:22 | P.PN ---
Date of Service: 09/25/23 Subjective: Improving, no acute events overnight ROS: 10 point ROS as noted above, otherwise negative Physical exam GEN: Alert, oriented, NAD HEENT: Normal conjunctiva, sclera anicteric CV: Regular rate and rhythm, no edema Pulm: Nonlabored respirations on room air ABD: Soft, nontender, nondistended MSK: No joint tenderness Integumentary: No rashes Neuro: Normal speech, normal affect Vitals reviewed Problem List Dilantin toxicity Frequent falls likely secondary to Peripheral neuropathy Trauma falls with multiple skin injuries History of epilepsy controlled on medications History of CVA s/p craniotomy in 2020 Dilantin level still elevated-28 Follow Dilantin level, once less than 20 can reinitiate Dilantin 300 mg daily Seen by neurology Consult PT, fall risk Will require extensive physical therapy for better mobility Brain MRI reports "No acute intracranial process.Sequelae of right frontoparietal craniotomy and underlying areas of encephalomalacia and gliosis as above." Orthostatic: Supine BP 140/61 heart rate 67, Sitting BP 140/66 heart rate 65, Standing BP 85/43 heart rate 76 Recommend abdominal binder, slowly changing positions Hx HTN/HLD Restart home medications Dispo- inpatient rehab or SNF Discharge Plan: Home (inpatient rehab) Plan to discharge in: 48 Hours Time Spent Managing Pts Care (In Minutes): 35
[2023-09-26 03:46] LABS: Absolute Lymphocytes (CBC) 3.9 K/uL (0.7-4.9); Lymphocytes % 40.5 % (15.3-44.8); MCV 93.8 fL (80-100); MPV 6.4 fL (7.6-11.3); Platelets 342 thou/uL (152-406); RBC Red Blood Cell Count 3.84 M/uL (4.33-5.43)
[2023-09-26 03:52] LABS: Magnesium 2.2 mg/dL (1.6-2.4); Phenytoin (Dilantin) Level 26.6 mcg/mL (10.0-20.0); Phosphorus 3.3 mg/dL (2.5-4.9); Potassium 4.6 mEq/L (3.5-5.1)
--- NOTE | 2023-09-26 08:03 | P.PN ---
Date of Service: 09/26/23 Subjective: Improving, no acute events overnight Able to stand/march in place with PT yesterday ROS: 10 point ROS as noted above, otherwise negative Physical exam GEN: Alert, oriented, NAD HEENT: Normal conjunctiva, sclera anicteric CV: Regular rate and rhythm, no edema Pulm: Nonlabored respirations on room air ABD: Soft, nontender, nondistended MSK: No joint tenderness Integumentary: No rashes Neuro: Normal speech, normal affect Vitals reviewed Problem List Dilantin toxicity Frequent falls likely secondary to Peripheral neuropathy Trauma falls with multiple skin injuries History of epilepsy controlled on medications History of CVA s/p craniotomy in 2020 Dilantin level still elevated-26 Follow Dilantin level, once less than 20 can reinitiate Dilantin 300 mg daily Seen by neurology Consult PT, fall risk Will require extensive physical therapy for better mobility Brain MRI reports "No acute intracranial process.Sequelae of right frontoparietal craniotomy and underlying areas of encephalomalacia and gliosis as above." Orthostatic, but BP elevated when not changing positions Recommend abdominal binder, slowly changing positions Hx HTN/HLD Restart home medications Dispo-Likely SNF Discharge Plan: Home (inpatient rehab) Plan to discharge in: 48 Hours Time Spent Managing Pts Care (In Minutes): 35
--- NOTE | 2023-09-27 10:15 | P.PN ---
Date of Service: 09/27/23 Subjective: Improving, no acute events overnight Able to walk with a front wheel walker yesterday and today ROS: 10 point ROS as noted above, otherwise negative Physical exam GEN: Alert, oriented, NAD HEENT: Normal conjunctiva, sclera anicteric CV: Regular rate and rhythm, no edema Pulm: Nonlabored respirations on room air ABD: Soft, nontender, nondistended MSK: No joint tenderness Integumentary: No rashes Neuro: Normal speech, normal affect Vitals reviewed Problem List Dilantin toxicity Frequent falls likely secondary to Peripheral neuropathy Trauma falls with multiple skin injuries History of epilepsy controlled on medications History of CVA s/p craniotomy in 2020 Dilantin level still elevated-23 Follow Dilantin level, once less than 20 can reinitiate Dilantin 300 mg daily Seen by neurology Consult PT, fall risk Will require extensive physical therapy for better mobility Brain MRI reports "No acute intracranial process.Sequelae of right frontoparietal craniotomy and underlying areas of encephalomalacia and gliosis as above." Orthostatic, but BP elevated when not changing positions Recommend abdominal binder, slowly changing positions Working better with physical therapy last 2 days Hx HTN/HLD Restart home medications Dispo-Likely SNF Discharge Plan: Home (inpatient rehab) Plan to discharge in: 48 Hours Time Spent Managing Pts Care (In Minutes): 35
--- NOTE | 2023-09-28 07:59 | P.PN ---
Date of Service: 09/28/23 Subjective: Improving, no acute events overnight Able to walk with a front wheel walker yesterday Strength improving ROS: 10 point ROS as noted above, otherwise negative Physical exam GEN: Alert, oriented, NAD HEENT: Normal conjunctiva, sclera anicteric CV: Regular rate and rhythm, no edema Pulm: Nonlabored respirations on room air ABD: Soft, nontender, nondistended MSK: No joint tenderness Integumentary: No rashes Neuro: Normal speech, normal affect Vitals reviewed Problem List Dilantin toxicity Frequent falls likely secondary to Peripheral neuropathy Trauma falls with multiple skin injuries History of epilepsy controlled on medications History of CVA s/p craniotomy in 2020 Dilantin level less than 20 Dilantin 300 mg by mouth daily resumed 09/28 Seen by neurology Consult PT, fall risk Will require extensive physical therapy for better mobility Brain MRI reports "No acute intracranial process.Sequelae of right frontoparietal craniotomy and underlying areas of encephalomalacia and gliosis as above." Orthostatic, but BP elevated when not changing positions Recommend abdominal binder, slowly changing positions Working better with physical therapy last 2 days Hx HTN/HLD Home medications have been restarted Dispo-Likely SNF Discharge Plan: Home (inpatient rehab) Plan to discharge in: 48 Hours Time Spent Managing Pts Care (In Minutes): 35
[2023-09-28] MEDS ORDERED: PHENYTOIN ER 100 MG CAP PO SCH ×2 (09:00→21:00)
[2023-09-28] MEDS: PHENYTOIN ER 100 MG CAP PO SCH (09:38)
--- NOTE | 2023-09-29 13:06 | P.PN ---
Date of Service: 09/29/23 Subjective: Improving, no acute events overnight Able to walk with a front wheel walker Strength improving ROS: 10 point ROS as noted above, otherwise negative Physical exam GEN: Alert, oriented, NAD HEENT: Normal conjunctiva, sclera anicteric CV: Regular rate and rhythm, no edema Pulm: Nonlabored respirations on room air ABD: Soft, nontender, nondistended MSK: No joint tenderness Integumentary: No rashes Neuro: Normal speech, normal affect Vitals reviewed Problem List Dilantin toxicity Frequent falls likely secondary to Peripheral neuropathy Trauma falls with multiple skin injuries History of epilepsy controlled on medications History of CVA s/p craniotomy in 2020 Dilantin level less than 20 Dilantin 300 mg by mouth daily resumed 09/28 Will repeat dilantin level 09/30 am Seen by neurology Consult PT, fall risk Will require extensive physical therapy for better mobility Brain MRI reports "No acute intracranial process.Sequelae of right frontoparietal craniotomy and underlying areas of encephalomalacia and gliosis as above." Orthostatic, but BP elevated when not changing positions Recommend abdominal binder, slowly changing positions Working better with physical therapy last 2 days Hx HTN/HLD Home medications have been restarted Dispo-Likely SNF Discharge Plan: Home (inpatient rehab) Plan to discharge in: 48 Hours Time Spent Managing Pts Care (In Minutes): 35
--- NOTE | 2023-09-30 09:23 | P.PN ---
Date of Service: 09/30/23 Subjective: Improving, no acute events overnight Able to walk with a front wheel walker Strength improving anxious to try for inpatient rehab ROS: 10 point ROS as noted above, otherwise negative Physical exam GEN: Alert, oriented, NAD HEENT: Normal conjunctiva, sclera anicteric CV: Regular rate and rhythm, no edema Pulm: Nonlabored respirations on room air ABD: Soft, nontender, nondistended MSK: No joint tenderness Integumentary: No rashes Neuro: Normal speech, normal affect Vitals reviewed Problem List Dilantin toxicity Frequent falls likely secondary to Peripheral neuropathy Trauma falls with multiple skin injuries History of epilepsy controlled on medications History of CVA s/p craniotomy in 2020 Dilantin level less than 20 Dilantin 300 mg by mouth daily resumed 09/28 Repeat dilantin level 09/30 -.7 Seen by neurology Consult PT, fall risk Will require extensive physical therapy for better mobility Brain MRI reports "No acute intracranial process.Sequelae of right frontoparietal craniotomy and underlying areas of encephalomalacia and gliosis as above." Orthostatic, but BP elevated when not changing positions Recommend abdominal binder, slowly changing positions PT to see today Hx HTN/HLD Home medications have been restarted Dispo-Likely SNF Discharge Plan: Home (inpatient rehab) Plan to discharge in: 48 Hours Time Spent Managing Pts Care (In Minutes): 35
[2023-10-01 08:28] VITALS: O2SAT 96
--- NOTE | 2023-10-01 13:33 | P.PN ---
Date of Service: 10/01/23 Subjective: Eating breakfast, calm and cooperative Anxiously waiting for rehab placement, prefers inpatient rehab ROS: 10 point ROS as noted above, otherwise negative Physical exam GEN: Alert, oriented, NAD, conversing well HEENT: Normal conjunctiva, sclera anicteric CV: RRR, no murmur noted, no edema Pulm: Nonlabored respirations on room air, bilateral clear breath sounds ABD: Soft, nontender, nondistended, bowel sounds present MSK: No joint tenderness Integumentary: No rashes Neuro: Normal speech, normal affect Vitals reviewed Problem List Dilantin toxicity Frequent falls likely secondary to Peripheral neuropathy Trauma falls with multiple skin injuries History of epilepsy controlled on medications History of CVA s/p craniotomy in 2020 Dilantin level less than 20 Dilantin 300 mg by mouth daily resumed 09/28 Repeat dilantin level 10/02 Seen by neurology Consult PT, fall risk Will require extensive physical therapy for better mobility Brain MRI reports "No acute intracranial process.Sequelae of right frontoparietal craniotomy and underlying areas of encephalomalacia and gliosis as above." Orthostatic, but BP elevated when not changing positions Recommend abdominal binder, slowly changing positions PT to see today Hx HTN/HLD Home medications have been restarted stable blood pressure Dispo-Likely SNF Discharge Plan: Home (inpatient rehab) Plan to discharge in: 48 Hours
--- NOTE | 2023-10-02 14:16 | P.PN ---
Date of Service: 10/02/23 Subjective: Sitting up in bed, more mobile improved abilities, walking well with therapy Will discuss with concerning ability to return home ROS: 10 point ROS as noted above, otherwise negative Physical exam GEN: AAO x3, NAD, conversing well HEENT: Normal conjunctiva, sclera anicteric CV: RRR, no murmur noted, S1 S2 present, no edema Pulm: Nonlabored respirations on room air, bilateral clear breath sounds ABD: Soft, nontender, nondistended, bowel sounds present MSK: No joint tenderness Integumentary: No rashes Neuro: Normal speech, normal affect, calm, no tremors noted Vitals reviewed Problem List Dilantin toxicity Frequent falls likely secondary to Peripheral neuropathy Trauma falls with multiple skin injuries History of epilepsy controlled on medications History of CVA s/p craniotomy in 2020 Dilantin level less than 20 Dilantin 300 mg by mouth daily resumed 09/28 Repeat dilantin level 10/02 Seen by neurology Consult PT, fall risk Will require extensive physical therapy for better mobility Brain MRI reports "No acute intracranial process.Sequelae of right front oparietal craniotomy and underlying areas of encephalomalacia and gliosis as above." Orthostatic, but BP elevated when not changing positions Recommend abdominal binder, slowly changing positions PT to see today Hx HTN/HLD continue Home medications stable blood pressure Dispo-Likely SNF Discharge Plan: Home (inpatient rehab) Plan to discharge in: 24 Hours
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
[2023-10-03 15:57] VITALS: BP 140/63; TEMP 97.6
== END 2023-10-03 17:30 | disposition home health service (06) | DRG 92 ==
LOC: ER 12:21 → ERHOLD 15:22 → 2ND 16:24 → OBSVTOIN 09-23 12:33
PROVIDERS: ADMIT Internal Medicine; ATTEND Internal Medicine
DX: R27.0 Ataxia, unspecified (principal); G40.209 Localization-related (focal) (partial) symptomatic epilepsy and epileptic syndromes with complex partial seizures, not intractable, without status epilepticus; G62.9 Polyneuropathy, unspecified; I95.1 Orthostatic hypotension; I10 Essential (primary) hypertension; E78.5 Hyperlipidemia, unspecified; E03.9 Hypothyroidism, unspecified; M19.90 Unspecified osteoarthritis, unspecified site; G93.89 Other specified disorders of brain; T42.0X5A Adverse effect of hydantoin derivatives, initial encounter; R73.9 Hyperglycemia, unspecified; R29.6 Repeated falls; Z91.81 History of falling; Z88.0 Allergy status to penicillin; Z86.73 Personal history of transient ischemic attack (TIA), and cerebral infarction without residual deficits; Z79.899 Other long term (current) drug therapy
CPT/HCPCS: 36415; 70450; 70551; 71045; 72125; 80048; 80053; 80061; 80185; 81001; 83036; 83735; 84100; 84439; 84443; 84484; 85025; 93005; 93306; 96360; 96361; 97110; 97112; 97116; 97161; 97165; 97530; 99285; G0378; J0360; J1650; J7030

== ENCOUNTER → 2023-10-08 | Emergency (ER) | payer MEDICARE ==
[~2023-10-08] MED LIST: ACETAMINOPHEN 500 MG TAB ONE; FOSPHENYTOIN PE 100 MG/2 ML VIAL ONE; LEVETIRACETAM 500 MG/5 ML VIAL IV ONE; NA CHLORIDE 0.9% 100 ML ONE
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
[2023-10-08 14:28] LABS: Absolute Lymphocytes (CBC) 3.6 K/uL (0.7-4.9); Hematocrit 34.7 % (39.6-49.0); Lymphocytes % 39.7 % (15.3-44.8); MPV 6.3 fL (7.6-11.3); Platelets 391 thou/uL (152-406); RBC Red Blood Cell Count 3.74 M/uL (4.33-5.43)
[2023-10-08 14:45] LABS: Albumin 3.1 g/dL (3.4-5.0); Bilirubin Total 0.2 mg/dL (0.2-1.0); Phenytoin (Dilantin) Level 17.8 mcg/mL (10.0-20.0); Potassium 4.4 mEq/L (3.5-5.1); Protein, Total 7.3 g/dL (6.4-8.2)
[2023-10-08 16:26] LABS: Specific Gravity 1.008 (1.005-1.030); Urine Bacteria <20 /HPF (<20); Urine Bilirubin NEGATIVE (Negative); Urine Blood 3+ (Negative); Urine Clarity Turbid (Clear); Urine Color Colorless (Yellow); Urine Crystals Unidentified Few /HPF (None Seen); Urine Glucose NEGATIVE (Negative); Urine Protein NEGATIVE (Negative); Urine RBC >50 /HPF (None Seen); Urine Urobilinogen Normal (Normal)
--- NOTE | 2023-10-08 16:48 | EDPHYS ---
Physician Documentation [facility] Name: Eleno Grossman Jr Age: 72 yrs Sex: Male : 1950 Arrival Date: 10/08/2023 Time: 13:38 Bed 3 Private MD: ED Physician Smith Nix HPI: 10/08 14:04 This 72 yrs old Male presents to ER via EMS with complaints of seizure. kb 16:44 Pt is a 72 year old male with a history of seizures that came in after second seizure kb today. EMS states reported pt had a seizure at 0850 then again at 1250 while walking to the car to go to Dr Rehman's office. States pt fell into the grass, no injuries or pain reported. . Historical: - Allergies: 13:41 PENICILLINS; ll1 - PMHx: 13:41 Arthritis; subdural hematoma; Hypertensive disorder; Cerebrovascular accident; tremors; ll1 Seizure; - Immunization history:: Adult Immunizations up to date. - Social history:: Smoking status: Patient denies any tobacco usage or history of. ROS: 14:04 Constitutional: Negative for fever, chills, and weight loss, kb 14:04 Neuro: Positive for seizure activity, 14:04 All other systems are negative, Exam: 14:40 Constitutional: This is a well developed, well nourished patient who is awake, alert, kb and in no acute distress. Head/Face: Normocephalic, atraumatic. ENT: Moist Mucous membranes Cardiovascular: Regular rate Respiratory: Respirations even and unlabored. No increased work of breathing. Talking in full sentences Abdomen/GI: Soft, non-tender. No distention Skin: Warm, dry with normal turgor. Normal color. MS/ Extremity: Pulses equal, no cyanosis. Neurovascular intact. Full, normal range of motion. 14:40 Neuro: Orientation: to person, Mentation: able to follow commands, Vital Signs: 13:48 BP 161 / 73; Pulse 77; Resp 18; Temp 97.8(O); Pulse Ox 99% ; rs5 15:01 BP 147 / 66; Pulse 72; Resp 17; Pulse Ox 99% on R/A; rs5 17:38 BP 149 / 68; Pulse 76; Resp 18; Pulse Ox 99% on R/A; rs5 18:32 BP 151 / 73; Pulse 74; Resp 18; Pulse Ox 99% on R/A; rs5 19:00 BP 135 / 66; Pulse 75; Resp 19; Pulse Ox 96% ; jj7 20:00 BP 124 / 58; Pulse 65; Resp 19; Pulse Ox 93% ; jj7 21:04 BP 167 / 80; Pulse 76; Resp 17; Pulse Ox 94% ; jj7 21:22 Weight 111.13 kg; vc1 22:30 BP 121 / 66; Pulse 73; Resp 20; Pulse Ox 97% ; vc1 MDM: 13:40 Patient medically screened. taiwo 14:40 Differential diagnosis: cardiac arrhythmia, seizure, syncope, abnormal electrolytes. taiwo Data reviewed: vital signs, nurses notes. Historians other than the Patient: EMS: [facility]. 14:41 Management of patient was discussed with the following: Locomotive Pipe Fitter: taiwo Bliss recommends basic bloodwork, dilantin level and dilantin loading dose. 16:35 Consideration of Admission/Observation Patient was admitted/placed on observation. taiwo Escalation of care including admission/observation considered. Historians other than the Patient: Spouse/Significant Other: . Counseling: I had a detailed discussion with the patient and/or guardian regarding the historical points, exam findings, and any diagnostic results supporting the discharge/admit diagnosis, lab results, radiology results, the need for further work-up and treatment in the hospital. ED course: states pt is still not back to his normal self since the seizure this afternoon. STates it normally takes him some time to come around, but this has been longer than previous episodes. states pt was recently hospitalized here for 10 days, was discharged on 10/03/23 and has had multiple falls since being home. She is concerned about him going home today due to falls, weakness. . 16:35 Management of patient was discussed with the following: Hospitalist: Hospitalist team. taiwo Raines discussed case with Dr Rehman and he recommended transfer for continuous EEG monitoring. 19:09 Management of patient was discussed with the following: Neurologist at [facility] tai[facility] Cid accepts pt for consult. Dr Jaydon Sun, hospitalist, accepts pt for transfer.. 10/08 13:40 Order name: Dilantin; Complete Time: 14:46 taiwo 10/08 13:40 Order name: CBC with Diff; Complete Time: 14:35 kb 10/08 13:40 Order name: CMP; Complete Time: 14:46 kb 10/08 13:40 Order name: Urinalysis w/ reflexes; Complete Time: 16:30 kb 10/08 13:42 Order name: CT Head C Spine; Complete Time: 14:09 kb 10/08 15:46 Order name: Social Service Consult EDDC 10/08 13:40 Order name: IV Start; Complete Time: 13:54 kb 10/08 16:12 Order name: Straight Cath; Complete Time: 16:24 kb 10/08 19:09 Order name: Misc. Order: weigh pt please; Complete Time: 21:23 kb Administered Medications: 15:30 Drug: Fosphenytoin IVPB 200 mg IVPB once; (mix in 50 to 100mL NS) Route: IVPB; Site: rs5 left antecubital; 15:45 Follow up: Response: No adverse reaction rs5 18:20 Drug: Keppra IV 1000 mg IV at calculated rate once Route: IV; Rate: calculated rate; rs5 Site: left antecubital; 18:34 Follow up: Response: No adverse reaction rs5 18:35 Follow up: IV Status: Completed infusion; IV Intake: 100ml vc1 21:18 Drug: Acetaminophen PO 1000 mg PO once Route: PO; vc1 23:07 Follow up: Response: No adverse reaction; Marked relief of symptoms vc1 Disposition: 10/09 07:00 Co-signature as Attending Physician, Smith Nix MD I reviewed the patient's care rn provided by the Advanced Practice Provider and agree with the diagnosis and treatment plan. Disposition Summary: 10/08/23 18:44 Transfer Ordered Notes: Reason: Higher level of care kb Condition: Stable(10/08/23 18:44) kb Problem: new(10/08/23 18:44) kb Symptoms: are unchanged(10/08/23 18:44) kb Transfer Location: [facility](10/08/23 19:10) kb Accepting Physician: Dr Jaydon Sun(10/08/23 23:07) vc1 Diagnosis - Epileptic seizures related to external causes kb - Weakness kb Discharge Instructions: - Discharge Summary Sheet rs5 Forms: - Medication Reconciliation Form kb - SBAR form rs5 Signatures: Dispatcher [employer] EDDC Vasyl, Charlotte, TELLER MANAGER-C TELLER MANAGER-Ckb Smith Nix MD MD rn Lewis, Lynsay RN RN ll1 Nadine Michael RN RN vc1 Chris Aguilar, RN RN rs5 Corrections: (The following items were deleted from the chart) 10/08 16:47 16:37 Management of patient was discussed with the following: Hospitalist: Hospitalist taiwo team. kb 17:44 16:37 Management of patient was discussed with the following: Hospitalist: Hospitalist kb team, pt accepted for admission under Dr Raines. kb 17:44 16:48 Observation kb kb 17:44 16:48 Caden Raines kb 17:44 16:48 Telemetry/MedSurg (observation) kb kb 17:44 16:48 Stable kb kb 17:44 16:48 new kb kb 17:44 16:48 are unchanged kb kb 17:44 16:48 Standard kb kb 17:44 16:48 kb kb 17:44 16:48 Altered mental status, unspecified kb kb 17:44 16:48 Epileptic seizures related to external causes, not intractable kb kb 19:10 18:44 Dr maravilla kb 19:10 18:44 [facility] kb kb 23:07 19:10 Dr Jaydon Sun kb vc1
--- NOTE | 2023-10-08 16:48 | ER ---
Nurse's Notes [facility] Name: Eleno Grossman Jr Age: 72 yrs Sex: Male : 1950 Arrival Date: 10/08/2023 Time: 13:38 Bed 3 Private MD: Diagnosis: Epileptic seizures related to external causes;Weakness Presentation: 10/08 13:48 Chief complaint: EMS states: Pt had a seizure this morning and fell into a [place]. No rs5 injury noted. He was recently hospitalized for digoxin toxicity and was discharged 5 days ago and prescribed 300 mg Dilantin. gave 600 mg Dilantin after seizure. Coronavirus screen: At this time, the client does not indicate any symptoms associated with coronavirus-19. Ebola Screen: No symptoms or risks identified at this time. Initial Sepsis Screen: Does the patient meet any 2 criteria? No. Patient's initial sepsis screen is negative. Does the patient have a suspected source of infection? No. Patient's initial sepsis screen is negative. Risk Assessment: Do you want to hurt yourself or someone else? Patient reports no desire to harm self or others. Onset of symptoms was October 08, 2023. Care prior to arrival: IV initiated. 20 GA, in the left hand. 13:48 Method Of Arrival: EMS: [facility] rs5 13:48 Acuity: MORENA 3 rs5 Triage Assessment: 13:48 General: Appears in no apparent distress. uncomfortable, Behavior is calm, cooperative. rs5 Pain: Denies pain. Historical: - Allergies: 13:41 PENICILLINS; ll1 - PMHx: 13:41 Arthritis; subdural hematoma; Hypertensive disorder; Cerebrovascular accident; tremors; ll1 Seizure; - Immunization history:: Adult Immunizations up to date. - Social history:: Smoking status: Patient denies any tobacco usage or history of. Screenin:45 [facility] ED Fall Risk Assessment (Adult) History of falling in the last 3 months, rs5 including since admission Yes- single mechanical fall (1 pt) Confusion or Disorientation No (0 pts) Intoxicated or Sedated No (0 pts) Impaired Gait Yes (1 pt) Mobility Assist Device Used Yes (1 pt) Altered Elimination No (0 pt) Score/Fall Risk Level 3 or more points = High Risk Oriented to surroundings, Maintained a safe environment, Hourly rounding (assess needs \T\ fall precautionary measures) done. 13:45 Abuse screen: Denies threats or abuse. Nutritional screening: No deficits noted. rs5 Tuberculosis screening: No symptoms or risk factors identified. Assessment: 13:45 General: Appears in no apparent distress. uncomfortable, Behavior is calm, cooperative. rs5 Pain: Denies pain. Neuro: Level of Consciousness is awake, alert, obeys commands, Oriented to person, place, pt not oriented to time or situation. Cardiovascular: Patient's skin is warm and dry. Rhythm is regular. 13:45 Respiratory: Airway is patent Respiratory effort is even, unlabored, Respiratory rs5 pattern is regular, symmetrical. GI: Abdomen is round non-distended, Abd is soft and non tender X 4 quads. : No signs and/or symptoms were reported regarding the genitourinary system. EENT: No signs and/or symptoms were reported regarding the EENT system. Derm: Skin is intact, Skin is pink, warm \T\ dry. Musculoskeletal: Range of motion: intact in all extremities. 15:01 Reassessment: No changes from previously documented assessment. rs5 16:20 Reassessment: Patient and/or family updated on plan of care and expected duration. Pain rs5 level reassessed. Patient is alert, oriented x 3, equal unlabored respirations, skin warm/dry/pink. 17:34 Reassessment: Pt had a tonic-clonic seizure that lasted approximately 30 seconds and rs5 ripped out his IV, bleeding controlled, provider notified \T\1735, provider at bedside \T\1738, bleeding controlled, new IV inserted 20g to LAC. 17:38 General: Appears in no apparent distress. uncomfortable, Behavior is calm, cooperative. rs5 Pain: Denies pain. Neuro: Level of Consciousness is awake, alert, obeys commands, Oriented to person, place, pt not oriented to place, time, or situation. Cardiovascular: Patient's skin is warm and dry. Rhythm is regular. Respiratory: Airway is patent Respiratory effort is even, unlabored, Respiratory pattern is regular, symmetrical. GI: Abdomen is round non-distended, Abd is soft and non tender X 4 quads. : No signs and/or symptoms were reported regarding the genitourinary system. EENT: No signs and/or symptoms were reported regarding the EENT system. Derm: Skin is intact, Skin is pink, warm \T\ dry. Musculoskeletal: Range of motion: intact in all extremities. 18:34 Reassessment: No changes from previously documented assessment. rs5 19:30 Reassessment: Patient and/or family updated on plan of care and expected duration. Pain vc1 level reassessed. Patient is alert, oriented x 3, equal unlabored respirations, skin warm/dry/pink. General: Appears in no apparent distress. uncomfortable, Behavior is calm, cooperative, appropriate for age. Pain: Denies pain. Neuro: Level of Consciousness is awake, alert, obeys commands, Oriented to person, place, time, situation, Appropriate for age. Cardiovascular: No deficits noted. Respiratory: Airway is patent Respiratory effort is even, unlabored, Respiratory pattern is regular, symmetrical. GI: Abdomen is round non-distended, Abd is soft and non tender X 4 quads. : Reports incontinence. EENT: No deficits noted. No signs and/or symptoms were reported regarding the EENT system. Derm: Skin is intact, Skin is pink, warm \T\ dry. Bruising that is brown, on right lower quadrant and left lower quadrant. Musculoskeletal: No deficits noted. No signs and/or symptoms reported regarding the musculoskeletal system. 20:30 Reassessment: Patient appears in no apparent distress at this time. No changes from vc1 previously documented assessment. Patient and/or family updated on plan of care and expected duration. Pain level reassessed. 21:30 Reassessment: Patient appears in no apparent distress at this time. Patient and/or vc1 family updated on plan of care and expected duration. Pain level reassessed. Patient is alert, oriented x 3, equal unlabored respirations, skin warm/dry/pink. 22:30 Reassessment: Patient appears in no apparent distress at this time. Patient and/or vc1 family updated on plan of care and expected duration. Pain level reassessed. Patient is alert, oriented x 3, equal unlabored respirations, skin warm/dry/pink. 22:57 Reassessment: [facility] TO TRANSFER PT. jj7 Vital Signs: 13:48 BP 161 / 73; Pulse 77; Resp 18; Temp 97.8(O); Pulse Ox 99% ; rs5 15:01 BP 147 / 66; Pulse 72; Resp 17; Pulse Ox 99% on R/A; rs5 17:38 BP 149 / 68; Pulse 76; Resp 18; Pulse Ox 99% on R/A; rs5 18:32 BP 151 / 73; Pulse 74; Resp 18; Pulse Ox 99% on R/A; rs5 19:00 BP 135 / 66; Pulse 75; Resp 19; Pulse Ox 96% ; jj7 20:00 BP 124 / 58; Pulse 65; Resp 19; Pulse Ox 93% ; jj7 21:04 BP 167 / 80; Pulse 76; Resp 17; Pulse Ox 94% ; jj7 21:22 Weight 111.13 kg; vc1 22:30 BP 121 / 66; Pulse 73; Resp 20; Pulse Ox 97% ; vc1 ED Course: 13:40 Patient arrived in ED. as6 13:40 Charlotte Fallon FNP-C is PHCP. kb 13:40 Smith Nix MD is Attending Physician. kb 13:41 Arm band placed on Patient placed in an exam room, on a stretcher. ll1 13:44 Patient has correct armband on for positive identification. Placed in gown. Bed in low rs5 position. Call light in reach. Side rails up X2. 13:48 Chris Aguilar, [place] is Primary Nurse. rs5 13:54 Triage completed. rs5 13:55 No provider procedures requiring assistance completed. rs5 13:58 CT Head C Spine In Process Unspecified. EDMS 16:47 Caden Raines MD is Hospitalizing Provider. kb 18:34 initiated transfer to [facility]. bd 19:10 Patient was accepted to [facility] to [address] [place] [address] room [facility] by Andrea Rowley per transfer center. 19:30 Provided Education on: seizure precautions. vc1 20:08 Primary Nurse role handed off by Chris Aguilar, [place] as6 21:50 Initiated transfer with EMS for mushroom picker advised it would be an hour, saved spot karolina called [facility] as well as [facility] was advised by [facility] no trucks available, [facility] advised 2-3 hour wait. 22:47 patient was picked up by EMS and transported to [facility]. vk 23:07 Patient transferred, IV remains in place. vc1 Administered Medications: 15:30 Drug: Fosphenytoin IVPB 200 mg IVPB once; (mix in 50 to 100mL NS) Route: IVPB; Site: rs5 left antecubital; 15:45 Follow up: Response: No adverse reaction rs5 18:20 Drug: Keppra IV 1000 mg IV at calculated rate once Route: IV; Rate: calculated rate; rs5 Site: left antecubital; 18:34 Follow up: Response: No adverse reaction rs5 18:35 Follow up: IV Status: Completed infusion; IV Intake: 100ml vc1 21:18 Drug: Acetaminophen PO 1000 mg PO once Route: PO; vc1 23:07 Follow up: Response: No adverse reaction; Marked relief of symptoms vc1 Medication: 13:45 VIS not applicable for this client. rs5 Intake: 18:35 IV: 100ml; Total: 100ml. vc1 Outcome: 16:48 Decision to Hospitalize by Provider. kb 18:44 ER care complete, transfer ordered by MD. kb 23:06 Transferred by ground EMS to [facility], Transfer form completed. X-rays vc1 sent w/ patient. 23:06 Condition: good 23:06 Instructed on the need for transfer, 23:07 Patient left the ED. vc1 Signatures: Dispatcher [employer] EDMS Charlotte Fallon, SUPERVISOR PUMPING-C SUPERVISOR PUMPING-CkKateryna Ferraro Lynsay, RN RN ll1 Alejandro Calles RN RN as6 Nadine Michael RN RN vc1 Torrie Costa RN RN jj7 Chris Aguilar RN RN [email or web address] Brandi Helms Corrections: (The following items were deleted from the chart) 18:34 13:45 Neuro: Level of Consciousness is awake, alert, obeys commands, Oriented to rs5 person, place, time, situation, rs5 18:34 17:38 Neuro: Level of Consciousness is awake, alert, obeys commands, Oriented to rs5 person, place, time, situation, rs5 10/09 00:09 02 19:10 Patient was accepted to [facility] by Andrea Stark per transfer center vk
--- NOTE | 2023-10-08 17:53 | P.CNS ---
Date of Consult: 10/08/23 Reason for Consult: Status epilepticus Requesting Physician: Smith Nix Primary Care Provider: Garrett Chief Complaint: Status post fall and seizures History of Present Illness: Patient is a 72-year-old gentleman came to the hospital with multiple seizures. Patient had recently was discharged because of Dilantin toxicity. Patient sees a neurologist in [facility]. Patient was admitted 2 weeks ago for Dilantin toxicity. At that time, his Dilantin was adjusted. Patient was discharged home. Patient had multiple falls. Patient has had 2 seizures this morning. Patient had an additional seizure this afternoon at the hospital. Spoke to neurology, Dr. Rehman who advised that the standard of care for patient with status epilepticus was to have an EEG monitoring in the hospital. As we do not have the ability to monitor patient's seizures because EEG machine is still not working, he recommended transferring the patient to an outside hospital with EEG monitoring. At this time, we will load the patient with Keppra. Will recommend transferring the patient to an outside hospital for EEG monitoring as we are not able to provide the standard of care for the patient at our facility. Patient's states that he sees a neurologist in the [place] area. That may be the most prudent place to transfer the patient as they know his situation. Allergies Penicillins Allergy (Verified 09/21/23 16:04) Shortness of breath Home Medications: Amlodipine [Norvasc*] 2.5 mg PO DAILY 09/21/23 Atorvastatin Calcium [Lipitor*] 20 mg PO BEDTIME 09/21/23 Citalopram Hydrobromide [Citalopram HBr] 20 mg PO DAILY 09/21/23 Primidone [Mysoline] 100 mg PO DAILY 09/21/23 Propranolol [Inderal*] 10 mg PO DAILY 09/21/23 Solifenacin [Vesicare*] 5 mg PO DAILY 09/21/23 PHENYTOIN ER Cap [Dilantin ER Cap*] 300 mg PO DAILY 30 Days #90 cap 10/03/23 - Past Medical/Surgical History -: Seizure disorder -: Depression -: Hypertension Past Surgical History: Unable to obtain - Family History Father Family History: Reviewed- Non-Contributory - Social History Smoking Status: Former smoker, Never smoker Alcohol use: No CD- Drugs: No Review of Systems is unable to be obtained Physical Examination Reviewed General: Mild distress, Confused HEENT: Atraumatic, PERRLA, Mucous membr. moist/pink, EOMI, Sclerae nonicteric Neck: Supple, 2+ carotid pulse no bruit, No LAD, Without JVD or thyroid abnormality Respiratory: Diminished Cardiovascular: Regular rate/rhythm, Normal S1 S2 Gastrointestinal: Hypoactive, Soft and benign, Non-distended, No tenderness Musculoskeletal: No clubbing, No swelling, No tenderness Integumentary: No rashes Neurological: Other (Patient is confused and obtunded.) Lymphatics: No axilla or inguinal lymphadenopathy Laboratory Data (last 24 hrs) 10/08/23 10/08/23 14:07 14:07 WBC 9.20 Hgb 12.1 L Hct 34.7 L Plt Count 391 Sodium 139 Potassium 4.4 BUN 17 Creatinine 1.17 Glucose 122 H Total Bilirubin 0.2 AST 22 ALT 33 Alkaline Phosphatase 172 H - Problems (1) Status epilepticus Current Visit: Yes Status: Acute (2) Status post fall Current Visit: Yes Status: Acute (3) Phenytoin toxicity Current Visit: Yes Status: Acute (4) Breakthrough seizure Current Visit: Yes Status: Chronic Conclusions/ Impression: Plan: 1. Continue with antiepileptics and recommend EEG monitoring. Patient be loaded with Keppra 1000 mg IV piggyback x 1 Critical Care: No Time Spent Managing Pts care (In Minutes): 45
[2023-10-08 23:19] VITALS: TEMP 97.8
[2023-10-08 23:38] VITALS: BP 121/66; O2SAT 97
== END ==
LOC: ER 13:38
DX: G40.509 Epileptic seizures related to external causes, not intractable, without status epilepticus (principal); R53.1 Weakness; W18.30XA Fall on same level, unspecified, initial encounter; T42.0X1A Poisoning by hydantoin derivatives, accidental (unintentional), initial encounter; I10 Essential (primary) hypertension; Z88.0 Allergy status to penicillin; Z86.73 Personal history of transient ischemic attack (TIA), and cerebral infarction without residual deficits
CPT/HCPCS: 85025; 81001; 36415; 80185; 80053; 70450; 72125; Q2009; J1953

== ENCOUNTER 2023-12-17 10:15 | Emergency (ER) | payer MEDICARE ==
[2023-12-17] MEDS ORDERED: LEVETIRACETAM 500 MG/5 ML VIAL IV ONE (10:29)
[2023-12-17] MEDS ORDERED: NA CHLORIDE 0.9% 100 ML ONE (10:29)
[2023-12-17 10:56] LABS: Absolute Basophils 0.1 K/uL (0-0.5); Absolute Eosinophils 0.3 K/uL (0-0.5); Absolute Lymphocytes (CBC) 3.8 K/uL (0.7-4.9); Absolute Neutrophil 5.7 K/uL (1.8-8.0); Basophils % 0.9 % (0-1.3); Eosinophils % 3.2 % (0-4.4); Hematocrit 34.9 % (39.6-49.0); Hemoglobin 11.5 g/dL (13.6-17.9); Lymphocytes % 34.5 % (15.3-44.8); MCH 30.2 pg (27.0-35.0); MCV 91.3 fL (80-100); Monocytes % 9.2 % (3.3-12.3); Neutrophils % 52.2 % (41.7-73.7); Platelets 352 thou/uL (152-406); RBC Red Blood Cell Count 3.82 M/uL (4.33-5.43); Red Cell Distribution Width 13.7 % (12.1-15.2)
[2023-12-17 11:12] LABS: Albumin/Globulin Ratio 0.8 (1.1-1.8); Anion Gap 4.4 mEq/L (5.0-15.0); Bilirubin Total 0.3 mg/dL (0.2-1.0); Potassium 4.4 mEq/L (3.5-5.1)
--- NOTE | 2023-12-17 11:44 | EDPHYS ---
Physician Documentation [facility] Name: Eleno Grossman Jr Age: 73 yrs Sex: Male : 1950 Arrival Date: 12/17/2023 Time: 10:15 Bed 14 Private MD: ED Physician Frank Ravi HPI: 12/16 10:30 This 73 yrs old Male presents to ER via EMS with complaints of Seizure. ec2 10:30 Patient arrives today for evaluation of a seizure. Patient reportedly had a seizure ec2 today, lasted approximately 1 minute, not once by EMS. Patient returned to baseline with EMS. Reassuring blood sugar obtained on scene. Patient reports medication compliance, recently changed from Dilantin to Keppra.. Historical: - Allergies: 10:25 PENICILLINS; kc6 - PMHx: 10:25 Arthritis; Cerebrovascular accident; Hypertensive disorder; Seizure; subdural hematoma; kc6 tremors; - PSHx: 10:25 brain surgery (tremors); kc6 - Immunization history:: Adult Immunizations up to date. - Infectious Disease History:: Denies. - Social history:: Smoking status: Patient denies any tobacco usage or history of. ROS: 10:30 Constitutional: as per hpi ec2 Exam: 10:30 Constitutional: GEN: NAD Head: atraumatic Eyes: EOMI Ears: External ears are ec2 normal. CV: regular rate LUNGS: no respiratory distress ABD: non-distended SKIN: no evidence of rashes MSK: no evidence of trauma NEURO: moves all extremities equally, cranial nerves II through XII intact, strength intact upper extremities, sensations intact throughout. Vital Signs: 10:24 BP 142 / 64; Pulse 76; Resp 16 S; Temp 98.5(O); Pulse Ox 98% on R/A; Weight 113 kg (M); kc6 Height 5 ft. 5 in. (R); 11:29 BP 147 / 63; Pulse 65; Resp 16 S; Pulse Ox 93% on R/A; kc6 10:24 Body Mass Index 41.46 (113.00 kg, 165.1 cm) kc6 [place] Coma Score: 10:25 Eye Response: spontaneous(4). Motor Response: obeys commands(6). Verbal Response: kc6 oriented(5). Total: 15. MDM: 10:21 Patient medically screened. ec2 10:30 Data reviewed: vital signs. ED course: Patient arrives today for evaluation of a ec2 seizure. Examination remarkable for neuro intact individual is otherwise in no acute distress who is at his baseline per the in the room. Will obtain lab work to evaluate for electrolyte disturbances, renal dysfunction, anemia. Will load the patient with Keppra as well.. 11:42 ED course: Patient with reassuring lab work, remains well-appearing in no acute ec2 distress, no recurrence of seizure. Will discharge home. Will increase the patient's 500 mg twice daily of Keppra to 1000 mg twice daily. Of note patient initially said 200 mg however he was incorrect and actually is on 500 mg twice a day.. 12/16 10:22 Order name: CBC with Diff; Complete Time: 11:37 ec2 12/16 10:22 Order name: CMP; Complete Time: 11:37 ec2 12/16 10:22 Order name: IV Start; Complete Time: 10:28 ec2 Administered Medications: 10:41 Drug: Keppra IV 1000 mg IV at bolus once Route: IV; Rate: bolus; Site: left antecubital;kc6 10:58 Follow up: Response: No adverse reaction; IV Status: Completed infusion; IV Intake: kc6 100ml Disposition Summary: 12/17/23 11:43 Discharge Ordered Notes: Location: Home ec2 Condition: Stable ec2 Diagnosis - Other seizures ec2 Followup: ec2 - With: Private Physician - When: - Reason: Re-evaluation by your physician Discharge Instructions: - Discharge Summary Sheet ec2 - Seizure, Adult ec2 Forms: - Medication Reconciliation Form ec2 - Antibiotic Education ec2 - Prescription Opioid Use ec2 - Patient Portal Instructions ec2 - Leadership Thank You Letter ec2 Prescriptions: - Keppra 500 mg Oral tablet - take 1 tablet ORAL route every 12 hours; 30 tablet; Refills: 0, Product ec2 Selection Permitted Signatures: Dispatcher [employer] Darlene Ramirez RN RN kc6 Frank Ravi MD MD ec2
--- NOTE | 2023-12-17 11:44 | ER ---
Nurse's Notes [facility] Name: Eleno Grossman Jr Age: 73 yrs Sex: Male : 1950 Arrival Date: 12/17/2023 Time: 10:15 Bed 14 Private MD: Diagnosis: Other seizures Presentation: 12/16 10:24 Chief complaint: EMS states: pt had a witnessed seizure by his lasting about 1min. kc6 reports pt recently switched from Dilantin to Keppra. Coronavirus screen: At this time, the client does not indicate any symptoms associated with coronavirus-19. Ebola Screen: No symptoms or risks identified at this time. Initial Sepsis Screen: Does the patient meet any 2 criteria? No. Patient's initial sepsis screen is negative. Does the patient have a suspected source of infection? No. Patient's initial sepsis screen is negative. Risk Assessment: Do you want to hurt yourself or someone else? Patient reports no desire to harm self or others. Onset of symptoms was December 17, 2023. 10:24 Method Of Arrival: EMS: [facility] 10:24 Acuity: MORENA 3 kc6 Triage Assessment: 10:25 General: Appears in no apparent distress. comfortable, well groomed, well developed, kc6 Behavior is calm, cooperative, appropriate for age. Pain: Denies pain. EENT: No signs and/or symptoms were reported regarding the EENT system. Neuro: Level of Consciousness is awake, alert, obeys commands, Oriented to person, place, time, situation, Appropriate for age. Cardiovascular: Capillary refill < 3 seconds. Respiratory: Airway is patent Trachea midline Respiratory effort is even, unlabored, Respiratory pattern is regular, symmetrical. GI: No signs and/or symptoms were reported involving the gastrointestinal system. : No signs and/or symptoms were reported regarding the genitourinary system. Derm: No signs and/or symptoms reported regarding the dermatologic system. Skin is intact, is healthy with good turgor, Skin is pink, warm \T\ dry. Musculoskeletal: No signs and/or symptoms reported regarding the musculoskeletal system. Circulation, motion, and sensation intact. Capillary refill < 3 seconds, Range of motion: intact in all extremities. Historical: - Allergies: 10:25 PENICILLINS; kc6 - PMHx: 10:25 Arthritis; Cerebrovascular accident; Hypertensive disorder; Seizure; subdural hematoma; kc6 tremors; - PSHx: 10:25 brain surgery (tremors); kc6 - Immunization history:: Adult Immunizations up to date. - Infectious Disease History:: Denies. - Social history:: Smoking status: Patient denies any tobacco usage or history of. Screenin:27 [facility] ED Fall Risk Assessment (Adult) History of falling in the last 3 months, kc6 including since admission No falls in past 3 months (0 pts) Confusion or Disorientation No (0 pts) Intoxicated or Sedated No (0 pts) Impaired Gait No (0 pts) Mobility Assist Device Used No (0 pt) Altered Elimination No (0 pt) Score/Fall Risk Level 0 - 2 = Low Risk. Abuse screen: Denies threats or abuse. Denies injuries from another. Nutritional screening: No deficits noted. Tuberculosis screening: No symptoms or risk factors identified. Assessment: 10:27 Reassessment: please see triage. kc6 11:29 Reassessment: Patient appears in no apparent distress at this time. No changes from kc6 previously documented assessment. Patient and/or family updated on plan of care and expected duration. Pain level reassessed. Patient is alert, oriented x 3, equal unlabored respirations, skin warm/dry/pink. Vital Signs: 10:24 BP 142 / 64; Pulse 76; Resp 16 S; Temp 98.5(O); Pulse Ox 98% on R/A; Weight 113 kg (M); kc6 Height 5 ft. 5 in. (R); 11:29 BP 147 / 63; Pulse 65; Resp 16 S; Pulse Ox 93% on R/A; kc6 10:24 Body Mass Index 41.46 (113.00 kg, 165.1 cm) kc6 Castella Coma Score: 10:25 Eye Response: spontaneous(4). Motor Response: obeys commands(6). Verbal Response: kc6 oriented(5). Total: 15. ED Course: 10:20 Patient arrived in ED. db 10:21 Darlene oCrona RN is Primary Nurse. kc6 10:21 Frank Ravi MD is Attending Physician. ec2 10:24 Seizure precautions initiated. kc6 10:25 Triage completed. kc6 10:25 Arm band placed on. kc6 10:27 Patient has correct armband on for positive identification. Bed in low position. Call kc6 light in reach. Side rails up X2. Adult w/ patient. Client placed on continuous cardiac and pulse oximetry monitoring. NIBP monitoring applied. Pillow given. 10:27 Maintain EMS IV. Dressing intact. Good blood return noted. Site clean \T\ dry. Gauge \T\ s[facility] 6 site: 20G LAC. 11:58 No provider procedures requiring assistance completed. IV discontinued, intact, kc6 bleeding controlled, No redness/swelling at site. Pressure dressing applied. Administered Medications: 10:41 Drug: Keppra IV 1000 mg IV at bolus once Route: IV; Rate: bolus; Site: left antecubital;kc6 10:58 Follow up: Response: No adverse reaction; IV Status: Completed infusion; IV Intake: kc6 100ml Medication: 11:59 VIS not applicable for this client. kc6 Intake: 10:58 IV: 100ml; Total: 100ml. kc6 Outcome: 11:43 Discharge ordered by . ec2 11:58 Discharged to home via wheelchair, with significant other, kc6 11:58 Condition: improved 11:58 Discharge instructions given to patient, significant other, Instructed on discharge instructions, follow up and referral plans. medication usage, Demonstrated understanding of instructions, follow-up care, medications, Prescriptions given X 1, 11:59 Patient left the ED. kc6 Signatures: Darlene Corona, RN [place] kc6 Fabiola Smallwood RN RN Frank Dillard MD MD ec2
[2023-12-17 12:22] VITALS: BP 147/63; TEMP 98.5; O2SAT 93
== END 2023-12-17 11:59 | disposition home or self-care (01) ==
LOC: ER 10:15
DX: G40.89 Other seizures (principal); I10 Essential (primary) hypertension; Z86.73 Personal history of transient ischemic attack (TIA), and cerebral infarction without residual deficits; Z88.0 Allergy status to penicillin
CPT/HCPCS: 85025; 36415; 80053; J1953

== ENCOUNTER 2024-06-14 09:46 | Emergency (ER) | payer MEDICARE ==
[2024-06-14 10:48] LABS: Absolute Basophils 0.1 K/uL (0-0.5); Absolute Eosinophils 0.4 K/uL (0-0.5); Absolute Lymphocytes (CBC) 4.4 K/uL (0.7-4.9); Absolute Neutrophil 4.3 K/uL (1.8-8.0); Basophils % 0.5 % (0-1.3); Hematocrit 37.1 % (39.6-49.0); Hemoglobin 12.2 g/dL (13.6-17.9); MCH 31.1 pg (27.0-35.0); MCHC 32.9 g/dL (32.0-36.0); MCV 94.6 fL (80-100); MPV 6.5 fL (7.6-11.3); Monocytes % 9.4 % (3.3-12.3); Neutrophils % 42.1 % (41.7-73.7); Platelets 323 thou/uL (152-406); RBC Red Blood Cell Count 3.92 M/uL (4.33-5.43); Red Cell Distribution Width 14.9 % (12.1-15.2)
[2024-06-14 11:18] LABS: Albumin/Globulin Ratio 0.8 (1.1-1.8); Anion Gap 7.6 mEq/L (5.0-15.0); Bilirubin Total 0.2 mg/dL (0.2-1.0); Magnesium 2.4 mg/dL (1.6-2.4); Phenytoin (Dilantin) Level 6.3 mcg/mL (10.0-20.0); Potassium 4.6 mEq/L (3.5-5.1)
[2024-06-14 11:52] LABS: Specific Gravity 1.023 (1.005-1.030); Sqamous Epithelial None Seen /HPF (None Seen); Urine Bacteria None Seen /HPF (<20); Urine Bilirubin NEGATIVE (Negative); Urine Blood Negative (Negative); Urine Clarity Clear (Clear); Urine Color Light-Yellow (Yellow); Urine Culture Reflex Order NOT NEEDED; Urine Glucose NEGATIVE (Negative); Urine Ketones NEGATIVE (Negative); Urine Microscopic Reflex YN ORDER UMIC; Urine Nitrite NEGATIVE (Negative); Urine Protein TRACE (Negative); Urine RBC <5 /HPF (None Seen); Urine Urobilinogen Normal (Normal); Urine WBC <5 /HPF (<5); Urine pH 6.5 (5.0-7.0)
--- NOTE | 2024-06-14 12:13 | ER ---
Nurse's Notes [facility] Name: Eleno Grossman Jr Age: 73 yrs Sex: Male : 1950 Arrival Date: 06/14/2024 Time: 09:46 Bed 14 Private MD: Diagnosis: Epilepsy, unspecified, not intractable, without status epilepticus Presentation: 06/14 10:00 Chief complaint: EMS states: pt has had multiple seizures, family reports 4 seizures in iw 24 hours which is not normal for him, sees Dr. Rehman, was recently put back on low dose Dilantin along with Keppra , pt is A \T\OX 4, feels tired, was placed on 4 L NC for O2 sats 89-91 on RA, now 98%. Coronavirus screen: At this time, the client does not indicate any symptoms associated with coronavirus-19. Ebola Screen: No symptoms or risks identified at this time. Initial Sepsis Screen: Does the patient meet any 2 criteria? No. Patient's initial sepsis screen is negative. Does the patient have a suspected source of infection? No. Patient's initial sepsis screen is negative. Risk Assessment: Do you want to hurt yourself or someone else? Patient reports no desire to harm self or others. Onset of symptoms was June 14, 2024. 10:00 Method Of Arrival: EMS: [facility] iw 10:00 Acuity: MORENA 3 iw 10:14 Care prior to arrival: IV initiated. 20 GA, in the right antecubital area, Glucose iw check: 134. Transition of care: patient was not received from another setting of care. Historical: - Allergies: 10:02 PENICILLINS; iw - PMHx: 10:02 Cerebrovascular accident; Hypertensive disorder; tremors; subdural hematoma; Seizure; iw Arthritis; - PSHx: 10:02 brain surgery; iw - Immunization history:: Adult Immunizations not up to date. - Infectious Disease History:: Denies. - Social history:: Smoking status: Patient reports the use of cigarette tobacco products, Patient denies any tobacco usage or history of. Screenin:39 [facility] ED Fall Risk Assessment (Adult) History of falling in the last 3 months, mb9 including since admission No falls in past 3 months (0 pts) Confusion or Disorientation No (0 pts) Intoxicated or Sedated No (0 pts) Impaired Gait No (0 pts) Mobility Assist Device Used No (0 pt) Altered Elimination No (0 pt) Score/Fall Risk Level 0 - 2 = Low Risk Oriented to surroundings, Maintained a safe environment, Educated pt \T\ family on fall prevention, incl call for assistance when getting out of bed. Abuse screen: Denies threats or abuse. Nutritional screening: No deficits noted. Tuberculosis screening: No symptoms or risk factors identified. Assessment: 10:38 General: Appears in no apparent distress. Behavior is calm, cooperative. Pain: Denies mb9 pain. Neuro: Tamez Agitation-Sedation Scale (RASS): 0 - Alert and Calm Level of Consciousness is awake, alert, obeys commands, Oriented to person, place, time, situation, Appropriate for age. Cardiovascular: Patient's skin is warm and dry. Respiratory: Airway is patent Respiratory effort is even, unlabored, Respiratory pattern is regular, symmetrical. GI: No signs and/or symptoms were reported involving the gastrointestinal system. : No signs and/or symptoms were reported regarding the genitourinary system. EENT: No signs and/or symptoms were reported regarding the EENT system. Derm: Skin is pink, warm \T\ dry. Musculoskeletal: Range of motion: intact in all extremities. 12:06 Reassessment: No changes from previously documented assessment. Patient and/or family mb9 updated on plan of care and expected duration. Pain level reassessed. Patient is alert, oriented x 3, equal unlabored respirations, skin warm/dry/pink. Vital Signs: 10:00 BP 142 / 60; Pulse 62; Resp 19; Temp 97.9; Pulse Ox 98% on 4 lpm NC; Weight 116.12 kg; iw Height 5 ft. 5 in. ; Pain 0/10; 12:05 BP 132 / 64; Pulse 59; Resp 18; Pulse Ox 100% on R/A; mb9 10:00 Body Mass Index 42.60 (116.12 kg, 165.1 cm) iw 10:00 Pain Scale: Adult iw Stan Coma Score: 10:39 Eye Response: spontaneous(4). Motor Response: obeys commands(6). Verbal Response: mb9 oriented(5). Total: 15. ED Course: 09:55 Patient arrived in ED. iw 09:59 Parth Villalobos PA is PHCP. jr8 09:59 Mauri Jay MD is Attending Physician. jr8 10:02 Triage completed. iw 10:03 Arm band placed on. iw 10:24 Harini Chatterjee, RN is Primary Nurse. mb9 10:38 Dilantin Sent. mb9 10:38 CMP Sent. mb9 10:38 CBC with Diff Sent. mb9 10:38 Magnesium Sent. mb9 10:38 Initial lab(s) drawn, by me, sent to lab. EKG done, by ED staff, reviewed by Parth BOWENS. Maintain EMS IV. Dressing intact. Good blood return noted. Site clean \T\ dry. Gauge \T\ site: 20g right AC. Flushed with 10 mL NS. 10:39 Placed in gown. Bed in low position. Call light in reach. Side rails up X 1. Provided mb9 Education on: press call light if needing anything. Client placed on continuous cardiac and pulse oximetry monitoring. NIBP monitoring applied. monitor worker on. 10:39 Seizure precautions initiated. mb9 11:28 No provider procedures requiring assistance completed. mb9 12:12 Dev Rehman MD is Referral Physician. jr8 12:16 IV discontinued, intact, bleeding controlled, No redness/swelling at site. Pressure mb9 dressing applied. Administered Medications: No medications were administered Medication: 10:39 VIS not applicable for this client. mb9 Outcome: 12:13 Discharge ordered by . jr8 12:22 Discharged to home ambulatory, mb9 12:22 Discharged to home 12:22 Condition: stable 12:22 Discharge instructions given to patient, Instructed on discharge instructions, follow up and referral plans. Demonstrated understanding of instructions, follow-up care, 12:23 Patient left the ED. mb9 Signatures: Kelly Aguilar RN Parth Smith PA PA jrHarini Chowdary RN RN mb9
--- NOTE | 2024-06-14 12:13 | EDPHYS ---
Physician Documentation [facility] Name: Eleno Grossman Jr Age: 73 yrs Sex: Male : 1950 Arrival Date: 06/14/2024 Time: 09:46 Bed 14 Private MD: ED Physician Mauri Jay HPI: 06/14 11:04 This 73 yrs old Male presents to ER via EMS with complaints of Seizure. jr8 11:04 This is a 73-year-old male patient that was brought in via EMS for seizures. Patient jr8 stated that he has a long standing history of seizures since he was 17 years old. Had been on Dilantin for a very long time and then was recently taken off of it about a month ago as he was toxic from it. Started on Keppra but started to have seizures so they had put him on Dilantin again and has been monitoring him. Patient's stated that he has had 4 seizures in the last 24 hours, denies recent illness or other causes that could have induced the seizures and has been compliant on his medications. Takes a total of 2000 mg of Keppra daily and a total of 200 mg of Dilantin daily. Denies falls or trauma from any of the seizures . Historical: - Allergies: 10:02 PENICILLINS; iw - PMHx: 10:02 Cerebrovascular accident; Hypertensive disorder; tremors; subdural hematoma; Seizure; iw Arthritis; - PSHx: 10:02 brain surgery; iw - Immunization history:: Adult Immunizations not up to date. - Infectious Disease History:: Denies. - Social history:: Smoking status: Patient reports the use of cigarette tobacco products, Patient denies any tobacco usage or history of. ROS: 11:04 Constitutional: Negative for fever, chills, and weight loss, Eyes: Negative for injury, jr8 pain, redness, and discharge, ENT: Negative for injury, pain, and discharge, Neck: Negative for injury, pain, and swelling, Cardiovascular: Negative for chest pain, palpitations, and edema, Respiratory: Negative for shortness of breath, cough, wheezing, and pleuritic chest pain, Abdomen/GI: Negative for abdominal pain, nausea, vomiting, diarrhea, and constipation, Back: Negative for injury and pain, MS/Extremity: Negative for injury and deformity, Skin: Negative for injury, rash, and discoloration, 11:04 Neuro: Positive for seizure activity, Exam: 11:04 Constitutional: This is a well developed, well nourished patient who is awake, alert, jr8 and in no acute distress. Head/Face: Normocephalic, atraumatic. Eyes: Pupils equal round and reactive to light, extra-ocular motions intact. Lids and lashes normal. Conjunctiva and sclera are non-icteric and not injected. Cornea within normal limits. Periorbital areas with no swelling, redness, or edema. Neck: Trachea midline, no thyromegaly or masses palpated, and no cervical lymphadenopathy. Supple, full range of motion without nuchal rigidity, or vertebral point tenderness. No Meningismus. Cardiovascular: Regular rate and rhythm with a normal S1 and S2. No gallops, murmurs, or rubs. Normal PMI, no JVD. No pulse deficits. Respiratory: Lungs have equal breath sounds bilaterally, clear to auscultation and percussion. No rales, rhonchi or wheezes noted. No increased work of breathing, no retractions or nasal flaring. Abdomen/GI: Soft, non-tender, with normal bowel sounds. No distension or tympany. No guarding or rebound. No evidence of tenderness throughout. Back: No spinal tenderness. No costovertebral tenderness. Full range of motion. Skin: Warm, dry with normal turgor. Normal color with no rashes, no lesions, and no evidence of cellulitis. MS/ Extremity: Pulses equal, no cyanosis. Neurovascular intact. Full, normal range of motion. Neuro: Awake and alert, GCS 15, oriented to person, place, time, and situation. Motor strength 5/5 in all extremities. Sensory grossly intact. Cerebellar exam normal. Normal gait. 11:04 ECG was reviewed by the Attending Physician. Vital Signs: 10:00 BP 142 / 60; Pulse 62; Resp 19; Temp 97.9; Pulse Ox 98% on 4 lpm NC; Weight 116.12 kg; iw Height 5 ft. 5 in. ; Pain 0/10; 12:05 BP 132 / 64; Pulse 59; Resp 18; Pulse Ox 100% on R/A; mb9 10:00 Body Mass Index 42.60 (116.12 kg, 165.1 cm) iw 10:00 Pain Scale: Adult iw Stan Coma Score: 10:39 Eye Response: spontaneous(4). Motor Response: obeys commands(6). Verbal Response: mb9 oriented(5). Total: 15. MDM: 10:03 Medical Screening Exam initiated jr 12:00 Differential diagnosis: cerebral vascular accident, drug overdose, cardiac arrhythmia, jr8 seizure, TIA, infection. Data reviewed: vital signs, nurses notes, lab test result(s), EKG. Consideration of Admission/Observation Escalation of care including admission/observation considered. Counseling: I had a detailed discussion with the patient and/or guardian regarding the historical points, exam findings, and any diagnostic results supporting the discharge/admit diagnosis, lab results, the need for outpatient follow up, a neurologist, to return to the emergency department if symptoms worsen or persist or if there are any questions or concerns that arise at home. 12:11 Management of patient was discussed with the following: Senior Insight Manager: Discussed case with [facility] Dr. Rehman who is patient's neurologist. At this time wants us to increase his Dilantin by 100 mg at nighttime. Have him follow-up otherwise. Patient remains hemodynamically stable.. ED course: Discussed with patient that there is no acute lab findings at this time and EKG was stable. Discussed with them and Dr. Rehman that he has sleep apnea history and and I been completing his tasks and possibly could be reason for this. Will increase his Dilantin at nighttime by 100 mg. Patient understood and agree with plan close return precautions given to patient otherwise.. 06/14 10:18 Order name: CBC with Diff; Complete Time: 10:52 8 06/14 10:18 Order name: CMP; Complete Time: 11:8 06/14 10:18 Order name: Dilantin; Complete Time: 11: jr8 06/14 10:18 Order name: Urinalysis w/ reflexes; Complete Time: 12:00 8 06/14 10:18 Order name: Magnesium; Complete Time: :8 06/14 10:18 Order name: EKG; Complete Time: 10:18 8 06/14 10:18 Order name: IV Saline Lock; Complete Time: 10:38 8 EC:04 Rate is 58 beats/min. Rhythm is regular, Sinus bradycardia. QRS Bridger is Normal. DE jr8 interval is prolonged at 218 msec. QRS interval is normal at 74 msec. QT interval is normal at 445 msec. No Q waves. T waves are Normal. No ST changes noted. Clinical impression: 1st degree heart block and Sinus bradycardia. Interpreted by me. Reviewed by me. Administered Medications: No medications were administered Disposition Summary: 06/14/24 12:13 Discharge Ordered Problem: new jr8 Symptoms: have improved jr8 Condition: Stable jr8 Diagnosis - Epilepsy, unspecified, not intractable, without status epilepticus jr8 Followup: jr8 - With: Dev Rehman MD - When: 1 week - Reason: Recheck today's complaints, Continuance of care, Re-evaluation by your physician Discharge Instructions: - Discharge Summary Sheet jr8 - Epilepsy jr8 - Seizure, Adult jr8 Forms: - Medication Reconciliation Form jr8 - Antibiotic Education jr8 - Prescription Opioid Use jr8 - Patient Portal Instructions jr8 - Leadership Thank You Letter jr8 Signatures: Dispatcher [employer] Kelly Quintana RN RN iw Parth Villalobos PA PA jr8 Corrections: (The following items were deleted from the chart) 11:06 11:04 This is a 73-year-old male patient that was brought in via EMS for seizures. jr8 Patient stated that he has a long standing history of seizures since he was 17 years old. Had been on Dilantin for a very long time and then was recently taken off of it about a month ago as he was toxic from it. Started on Keppra but started to have seizures so they had put him on Dilantin again and has been monitoring him. Patient's stated that he has had 4 seizures in the last 24 hours, denies recent illness or other causes that could have induced the seizures and has been compliant on his medications. Takes a total of 2000 mg of Keppra daily and a total of 200 mg of Dilantin daily. jr8
[2024-06-14 12:27] VITALS: TEMP 97.9
[2024-06-14 12:28] VITALS: BP 132/64; O2SAT 100
--- NOTE | 2024-06-15 12:14 | EKG ---
Test Date: 2024-06-14 Test Time: 10:32:21 Leadership Development Manager: MB MEASUREMENT RESULTS: Intervals: Rate: 58 OK: 218 QRSD: 74 QT: 454 QTc: 445 Sewell: P: 28 OK: 218 QRS: -8 T: 52 INTERPRETIVE STATEMENTS: Sinus bradycardia with 1st degree AV block Nonspecific ST abnormality Abnormal ECG Compared to ECG 09/21/2023 12:42:45 First degree AV block now present ST (T wave) deviation now present Junctional rhythm no longer present Electronically Signed On 06-15-24 12:13:14 BACKING IN MACHINE TENDER by Pasha Kahn
== END 2024-06-14 12:23 | disposition home or self-care (01) ==
LOC: ER 09:46
DX: G40.909 Epilepsy, unspecified, not intractable, without status epilepticus (principal); I10 Essential (primary) hypertension; Z86.73 Personal history of transient ischemic attack (TIA), and cerebral infarction without residual deficits; Z72.0 Tobacco use
CPT/HCPCS: 36415; 80053; 80185; 81001; 83735; 85025; 93005; 99284